=== PATIENT | male | born 1965 | race Caucasian/White ===

== ENCOUNTER → 2016-11-09 | Outpatient (REF) | payer OTHER ==
[2016-11-09 12:46] LABS: ALBUMIN 3.9 GM/DL (3.2-5.2); ALKALINE PHOSPHATASE 204 U/L (45-117); ALT/SGPT 54 U/L (12-78); ANION GAP 20 MEQ/L (8-16); AST/SGOT 63 U/L (15-37); BLOOD UREA NITROGEN 10 MG/DL (7-18); CALCIUM LEVEL 8.5 MG/DL (8.5-10.1); CARBON DIOXIDE LEVEL 16 MEQ/L (21-32); CHLORIDE LEVEL 96 MEQ/L (98-107); CHOLESTEROL LEVEL 213 MG/DL (<200); CREATININE FOR GFR 0.57 MG/DL (0.70-1.30); GLOMERULAR FILTRATION RATE > 60.0 (>56); GLUCOSE, FASTING 55 MG/DL (70-105); POTASSIUM SERUM 3.3 MEQ/L (3.5-5.1); SODIUM LEVEL 132 MEQ/L (136-145); TOTAL PROTEIN 6.9 GM/DL (6.4-8.2); TRIGLYCERIDES LEVEL 135 MG/DL (<150)
== END ==
LOC: M SFHCPLAZ 09:22
PROVIDERS: ATTEND Internal Medicine Infectious Disease
DX: B20 Human immunodeficiency virus [HIV] disease (principal); Z11.3 Encounter for screening for infections with a predominantly sexual mode of transmission; R79.89 Other specified abnormal findings of blood chemistry; Z13.220 Encounter for screening for lipoid disorders; Z12.5 Encounter for screening for malignant neoplasm of prostate

== ENCOUNTER → 2017-01-11 | Outpatient (CLI) | payer OTHER ==
--- NOTE | 2017-01-11 14:06 | REP ---
Chest two views HISTORY: COPD Comparison: 02/23/2016 The lungs are hyperinflated. An increase in interstitial markings is present in the lungs. Bullae are present in the upper lobes. The heart is normal in size. The pulmonary vasculature is normal in appearance. The bony structure is intact. IMPRESSION: COPD. Signed by Joe Valladares MD 01/11/2017 01:57 P
== END ==
LOC: M RAD 13:29
PROVIDERS: ATTEND Internal Medicine Infectious Disease
DX: J44.9 Chronic obstructive pulmonary disease, unspecified (principal)

== ENCOUNTER 2017-03-02 15:55 | Emergency (ER) | payer OTHER ==
[~2017-03-02] VITALS: Ht 157.5 cm; Wt 47.6 kg
[2017-03-02 15:56] VITALS: BP 145/89
[2017-03-02] MEDS ORDERED: ATRIPLA PO (16:07)
[2017-03-02] MEDS ORDERED: MULTTAB PO (16:07)
[2017-03-02] MEDS ORDERED: CYCL10TA PO (16:41)
[2017-03-02] MEDS ORDERED: IBUP600T26 PO (16:41)
== END 2017-03-02 17:33 | disposition home or self-care (01) ==
LOC: M ED 16:35
DX: S39.012A Strain of muscle, fascia and tendon of lower back, initial encounter (principal); X50.3XXA Overexertion from repetitive movements, initial encounter; Y92.89 Other specified places as the place of occurrence of the external cause; Y93.89 Activity, other specified; Y99.8 Other external cause status; I10 Essential (primary) hypertension; F17.200 Nicotine dependence, unspecified, uncomplicated; Z79.899 Other long term (current) drug therapy

== ENCOUNTER → 2017-05-05 | Outpatient (REF) | payer OTHER ==
[~2017-05-05] MED LIST: ATRIPLA PO; BOUDPST TOP; CYCL10TA PO; DRIS50002 PO; FERR1TAB8 PO; FIRS1SOL3 PO; FOLI1TAB4 PO; IBUP-1022 PO; KPHOS50TA PO; LEVO75TA4 PO; MAG400TA PO; MULTTAB PO; NICO14PA TD; NYST10PW TOP; RISATAB3 PO; THIA100TA PO; VITMTA PO
[2017-05-05 12:32] LABS: ALBUMIN 3.6 GM/DL (3.2-5.2); ALBUMIN/GLOBULIN RATIO 1.16 (1.00-1.93); ALKALINE PHOSPHATASE 166 U/L (45-117); ALT/SGPT 82 U/L (12-78); ANION GAP 13 MEQ/L (8-16); AST/SGOT 105 U/L (15-37); BILIRUBIN,TOTAL 0.8 MG/DL (0.2-1.0); BLOOD UREA NITROGEN 4 MG/DL (7-18); CALCIUM LEVEL 8.8 MG/DL (8.5-10.1); CARBON DIOXIDE LEVEL 23 MEQ/L (21-32); CHLORIDE LEVEL 96 MEQ/L (98-107); CREATININE FOR GFR 0.64 MG/DL (0.70-1.30); GLOMERULAR FILTRATION RATE > 60.0 (>56); GLUCOSE, FASTING 72 MG/DL (70-105); POTASSIUM SERUM 3.6 MEQ/L (3.5-5.1); SODIUM LEVEL 132 MEQ/L (136-145); TOTAL PROTEIN 6.7 GM/DL (6.4-8.2)
[2017-05-10 00:10] LABS: %CD3+CD4+CD8+ 7.8 % (Not Estab.); %CD3+CD4+CD8- 38.6 % (Not Estab.); %CD3+CD4-CD8+ 32.2 % (Not Estab.); %CD3+CD4-CD8- 1.2 % (Not Estab.); ABS CD3+CD4+CD8+ 117 /uL (Not Estab.); ABS CD3+CD4+CD8- 579 /uL (Not Estab.); ABS CD3+CD4-CD8+ 483 /uL (Not Estab.); ABS CD3+CD4-CD8- 18 /uL (Not Estab.); Eosinophils 1 % (.); Monocytes 9 % (.); Neutrophils 66 % (.); WBC 6.3 x10E3/uL (3.4-10.8)
== END ==
LOC: M SFHCPLAZ 08:58
PROVIDERS: ATTEND Internal Medicine Infectious Disease
DX: B20 Human immunodeficiency virus [HIV] disease (principal); R79.89 Other specified abnormal findings of blood chemistry

== ENCOUNTER 2017-06-25 13:42 | Inpatient (IN) | payer OTHER ==
[~2017-06-25] VITALS: Ht 172.7 cm; Wt 38.6 kg
[~2017-06-25 13:42] MED LIST changes: -BOUDPST TOP; -DRIS50002 PO; -FERR1TAB8 PO; -FIRS1SOL3 PO; -FOLI1TAB4 PO; -KPHOS50TA PO; -LEVO75TA4 PO; -MAG400TA PO; -NICO14PA TD; -NYST10PW TOP; -RISATAB3 PO; -THIA100TA PO; -VITMTA PO
[2017-06-25] MEDS ORDERED: NS 1,000 ML IV ONE (14:00)
--- NOTE | 2017-06-25 14:45 | REP ---
All chest x-ray: Single view: History: Altered mental status. Comparison chest x-ray: 01/11/2017. Findings: EKG monitoring electrodes overlie the chest. The heart is not enlarged. Aorta is slightly tortuous. The lungs are quite hyperinflated consistent with some degree of COPD but clear. No bony abnormality is seen. Impression: Hyperinflated lungs. Evidence COPD. No acute disease. Signed by Ko Sage MD 06/25/2017 02:50 P
[2017-06-25 15:25] LABS: ALBUMIN 2.6 GM/DL (3.2-5.2); ALBUMIN/GLOBULIN RATIO 0.79 (1.00-1.93); ALKALINE PHOSPHATASE 118 U/L (45-117); ALT/SGPT 31 U/L (12-78); ANION GAP 20 MEQ/L (8-16); AST/SGOT 30 U/L (15-37); BILIRUBIN,DIRECT 0.3 MG/DL (0.0-0.2); BILIRUBIN,TOTAL 0.6 MG/DL (0.2-1.0); BLOOD UREA NITROGEN 87 MG/DL (7-18); CARBON DIOXIDE LEVEL 14 MEQ/L (21-32); CHLORIDE LEVEL 122 MEQ/L (98-107); CREATININE FOR GFR 2.81 MG/DL (0.70-1.30); GLOMERULAR FILTRATION RATE 25.3 (>56); GLUCOSE, FASTING 126 MG/DL (70-105); POTASSIUM SERUM 3.1 MEQ/L (3.5-5.1); SODIUM LEVEL 156 MEQ/L (136-145); TOTAL PROTEIN 5.9 GM/DL (6.4-8.2)
[2017-06-25 16:06] LABS: ADD MANUAL DIFFER YES; MEAN CORPUSCULAR HEMOGLOBIN 35.8 pg (27.0-33.0); MEAN CORPUSCULAR HGB CONC 33.6 g/dl (32.0-36.5); MEAN CORPUSCULAR VOLUME 106.4 fl (80.0-96.0); PLATELET COUNT, AUTOMATED 148 k/mm3 (150-450); RED CELL DISTRIBUTION WIDTH 14.2 % (11.5-14.5); WHITE BLOOD COUNT 6.9 K/mm3 (4.0-10.0)
[2017-06-25 16:18] LABS: BANDS 3 % (< 11)
[2017-06-25] MEDS ORDERED: PIPERACILLIN/TAZOBACTAM SOD 2.25 GM in D5W MINI-BAG PLUS 50 ML IV ONE (16:45)
[2017-06-25] MEDS ORDERED: NS 500 ML IV ONE ×2 (16:45→18:15)
[2017-06-25] MEDS ORDERED: DRIS50002 PO (17:04)
[2017-06-25] MEDS ORDERED: ATRIPLA PO (17:04)
[2017-06-25] MEDS ORDERED: NS 1,000 ML IV SCH (18:15)
[2017-06-25 19:43] LABS: ANION GAP 18 MEQ/L (8-16); BLOOD UREA NITROGEN 84 MG/DL (7-18); CALCIUM LEVEL 7.4 MG/DL (8.5-10.1); CARBON DIOXIDE LEVEL 15 MEQ/L (21-32); CHLORIDE LEVEL 119 MEQ/L (98-107); CREATININE FOR GFR 2.57 MG/DL (0.70-1.30); GLUCOSE, FASTING 133 MG/DL (70-105); MAGNESIUM LEVEL 2.6 MG/DL (1.8-2.4); POTASSIUM SERUM 2.7 MEQ/L (3.5-5.1); SODIUM LEVEL 152 MEQ/L (136-145)
[2017-06-25] MEDS ORDERED: THIAMINE 100 MG TAB PO ONE (20:30)
[2017-06-25] MEDS ORDERED: KCL 20MEQ in NS 1000ML 1,000 ML IV SCH (20:30)
[2017-06-25] MEDS ORDERED: FOLIC ACID 1 MG TAB PO ONE (20:30)
[2017-06-25] MEDS ORDERED: IPRATROPIUM 0.5MG/ALBUTEROL 2.5MG INH SOL UD 3ML (DUONEB)(J7620) NEB PRN (20:30)
[2017-06-25] MEDS ORDERED: NICOTINE 14 MG/24 HR TRANSDERMAL TD PRN (20:30)
[2017-06-25] MEDS ORDERED: OXAZEPAM 10 MG CAP PO PRN (20:30)
[2017-06-25] MEDS ORDERED: KCL 10MEQ IN 100ML SWI (KRUN) 10 MEQ in APPROPRIATE DILUENT 1 EA IV STA ×2 (20:32)
[2017-06-25] MEDS ORDERED: POTASSIUM CHLORIDE 10 MEQ SR TABLET PO STA (20:33)
[2017-06-25 20:45] VITALS: BP 100/65
[2017-06-25 21:22] LABS: PHOSPHORUS LEVEL 3.9 MG/DL (2.5-4.9)
--- NOTE | 2017-06-25 21:24 | HPE ---
DATE OF ADMISSION: 06/25/2017 This is a patient of Dr. Marquez. CHIEF COMPLAINT: Not feeling well. SUMMARY OF HIS PRESENTATION: This is a 52-year-old who says he is not feeling well for 2-1/2 months. He has had general malaise. He is not supposed to see Dr. Marquez until apparently September of this year. He is a relatively poor historian, but it appears as though for the last 3-4 weeks he has had difficulty walking. He says this is because of weakness. He does not describe any falls or injuries. He has been having friends or his landlord bring him food. He says that he does have rats in his apartment, but he has not had any rat bites. Today he was found down by his landlord. He was apparently lethargic and difficult to understand. The emergency medical services (EMS) team had difficulty obtaining a blood pressure, and he was noted to be covered in various ages of his own feces. PAST MEDICAL HISTORY: Notable for: 1. AIDS. 2. Pneumocystic pneumonia (PCP). 3. Alcohol abuse. 4. Tobacco abuse. 5. Chronic obstructive pulmonary disease (COPD). 6. Attention deficit hyperactivity disorder (ADHD). 7. History of a rib fracture. 8. Impaired vision. 9. Bronchitis. 10. Oral candidiasis. SURGICAL HISTORY: There is no known surgical history. FAMILY HISTORY: Notable for his parents both being . SOCIAL HISTORY: He continues to smoke. He does drink alcohol. ALLERGIES: He has no known drug allergies listed. MEDICATIONS AT HOME: Include vitamin D and Atripla. He says he is compliant with his antiviral medication. REVIEW OF SYSTEMS: Notable for no headache. No visual change, although he is having difficulty seeing now because he left his glasses at home. No sore throat. No neck pain. No cough. He does have some low back pain. No chest pain. He has been having diarrhea. He has had decreased oral intake. He is, again, a poor historian, and review of systems is quite limited. PHYSICAL EXAMINATION: His temperature is 96.9, his blood pressure upon arrival was 84/56, most recently it is 120/58, pulse 76, respiratory rate is 18, pulse oximetry is 99% on room air. He is awake during my exam and appropriately interactive. Apparently that was not the case earlier in his stay. He is alert and oriented times three. Pleasant, easily conversant, and has actually made some jokes during the exam. Mucous membranes are tacky. Neck is supple. He appears cachectic. I appreciate no cervical or supraclavicular adenopathy. Breathing is symmetrical. Inspiratory to expiratory (I-to-E) ratio is 1:3. No costovertebral angle (CVA) tenderness. There is some tenderness over the posterior right lower rib cage. There is no midline tenderness noted. Abdomen soft, doughy, nontender. There is no lower extremity edema. He is covered with small scratches/abrasions he looks like he has been itching quite a bit. On the medial aspect of his left inner thigh there is some skin denudation, and it looks like fungal changes. White cell count 6.9, hemoglobin 13, platelets of 148. Sodium 156, potassium 3.1, chloride 122, carbon dioxide 14, anion gap of 20, creatinine 2.81, glucose 126. TSH is 5.55. UA is notable for trace ketones. Repeat BMP shows sodium 152, potassium 2.7, chloride 119, carbon dioxide 15, anion gap of 18, creatinine 2.57. Lactic acid 4.2. CK and troponin are, again, negative. Ammonia level was 16. No cultures have been sent after antibiotics have been given. Chest x-ray shows hyperinflation. No acute disease. Abdominal and pelvic CT wet read shows healing wedge compression deformity at T12 with vertebral body loss and 7 mm retropulsion producing canal stenosis, thickening of the adrenal glands bilaterally, consistent with adrenal hyperplasia, Ram catheter. EKG shows sinus rhythm. Nonspecific ST-T-wave changes. ASSESSMENT: This is a 52-year-old with HIV, cachexia, and profound dehydration leading to hypotension. Patient will require 2-midnight hospital stay. My plan will be as follows: 1. Patient has acute renal failure. There is no evidence of obstruction. We are giving intravenous (IV) fluids. He is also noted to be hypernatremic. At this point, given his hypotension, will continue with normal saline replacement. He his also hypokalemic, which will be repleted. We will check a potassium given that he is at risk for refeeding syndrome, as he has not been eating well for the last 3-4 weeks. He will be monitored on telemetry, of course. 2. Possibility of an infectious etiology is considered, although it seems less likely. Unfortunately, cultures were not sent prior to giving antibiotics. At this point, will continue with empiric Zosyn and by mouth vancomycin. Will send a gastrointestinal (GI) panel with the next stool for the possibility of Clostridium (C) difficile colitis. 3. Patient has HIV. I have discussed this case by phone with Dr. Marquez. Will continue with his outpatient HIV regimen. 4. Patient has elevated thyroid-stimulating hormone (TSH). Will check a thyroid panel in the morning. 5. Patient has history of alcohol and tobacco abuse. Will make a nicotine patch available to him should he request it. There is no evidence of alcohol withdrawal. His alcohol level is undetectably low. Will monitor for signs or symptoms of infection. Will make as-needed Serax available as well as folate and thiamine. 6. Patient has a T12 fracture and would likely benefit from MRI of the area and perhaps orthopedic consult when he is more clinically stable. At this point, we should probably keep him bed rest. There is no focal neurologic deficit. Sensation is grossly intact. His deep tendon reflexes (DTRs) at the patella and Achilles are not slowed, and he is able to move both legs. This is likely a subacute fracture. 7. Patient has history of chronic obstructive pulmonary disease (COPD). Will make nebulizers available to him. 8. Deep vein thrombosis (DVT) prophylaxis can be heparin.
[2017-06-25] MEDS: HEPARIN SOD (PORCINE) 5000 UNITS/ML VIAL SQ SCH (21:29)
[2017-06-25] MEDS: PIPERACILLIN/TAZOBACTAM SOD 2.25 GM in D5W MINI-BAG PLUS 50 ML IV SCH (23:49)
[2017-06-25] MEDS: VANCOMYCIN ORAL SOL 250MG/5ML ORAL SYRINGE PO SCH (23:50)
[2017-06-26] VITALS (7 sets, daily range): BP systolic 93–112; BP diastolic 65–75
[2017-06-26 00:47] LABS: CALCIUM LEVEL 7.4 MG/DL (8.5-10.1); CREATININE FOR GFR 2.45 MG/DL (0.70-1.30); GLOMERULAR FILTRATION RATE 29.6 (>56); POTASSIUM SERUM 3.1 MEQ/L (3.5-5.1)
[2017-06-26] MEDS: KCL 10MEQ IN 100ML SWI (KRUN) 10 MEQ in APPROPRIATE DILUENT 1 EA IV SCH ×16 (02:25→10:15)
[2017-06-26] MEDS: D5W 1,000 ML IV SCH ×2 (03:30→08:40)
[2017-06-26] MEDS: PIPERACILLIN/TAZOBACTAM SOD 2.25 GM in D5W MINI-BAG PLUS 50 ML IV SCH ×4 (05:22→23:58)
[2017-06-26 05:51] LABS: MEAN CORPUSCULAR HEMOGLOBIN 36.1 pg (27.0-33.0); MEAN CORPUSCULAR HGB CONC 35.3 g/dl (32.0-36.5); MEAN CORPUSCULAR VOLUME 102.2 fl (80.0-96.0); RED CELL DISTRIBUTION WIDTH 14.5 % (11.5-14.5); WHITE BLOOD COUNT 8.8 K/mm3 (4.0-10.0)
[2017-06-26] MEDS: ATRIPLA TAB PO SCH (06:14)
[2017-06-26] MEDS: VANCOMYCIN ORAL SOL 250MG/5ML ORAL SYRINGE PO SCH ×4 (06:15→23:58)
[2017-06-26 06:18] LABS: CALCIUM LEVEL 7.3 MG/DL (8.5-10.1); CREATININE FOR GFR 2.17 MG/DL (0.70-1.30); MAGNESIUM LEVEL 2.2 MG/DL (1.8-2.4); POTASSIUM SERUM 2.9 MEQ/L (3.5-5.1)
--- NOTE | 2017-06-26 07:02 | REP ---
CT brain without contrast: History: Altered mental status. Comparison CT study July 09, 2009. Findings: There is diffuse moderate generalized atrophy in this relatively young patient. This is more prominent than on the prior CT study. There is no evidence of intracranial hemorrhage. No extra-axial fluid collection is seen. No mass, cortical infarction or midline shift is seen. Bone window settings demonstrate an intact bony calvarium. Visualized paranasal sinuses are clear. The patient is edentulous. Impression: Diffuse moderate generalized atrophy. No acute intracranial lesion. Signed by Ko Sage MD 06/26/2017 08:45 A
--- NOTE | 2017-06-26 07:05 | REP ---
CT abdomen and pelvis without IV or oral contrast: History: Ulceration in the medial groin. Comparison CT study February 05, 2008. CT findings: Preliminary digital lighting specialist radiograph demonstrates an unremarkable bowel gas pattern. A Ram catheter is seen. There is a wedge compression fracture deformity at the T12 vertebral body. There is moderate retropulsion of the posterior cortex producing central canal stenosis. The retropulsion measures 7 mm. There is 75% loss of anterior vertebral body height. I do not see posterior element involvement in the fracture or displacement. No other focal bony lesion. Diffuse osteoporosis. The liver and spleen are normal in size and homogeneous in texture. The gallbladder is unremarkable. No pancreatic abnormality is seen. There is some diffuse thickening of the adrenal glands bilaterally. This may be adrenal hyperplasia. No hydronephrosis or renal mass is seen. There is a slightly hyperdense cyst in the anterior cortex of the left mid kidney. Normal caliber aorta. Small and large bowel loops are unremarkable. Normal appendix is seen. A Ram catheter is noted in the urinary bladder. No other significant finding. Impression: 1. Healing wedge compression fracture deformity at T12 with 75% loss of vertebral body height and 7 mm of retropulsion producing central canal stenosis at the T12 level. 2. Thickening of the adrenal glands bilaterally consistent with adrenal hyperplasia. Mild in degree. 3. Ram catheter in place. 4. No other acute abdominal finding. Signed by Ko Sage MD 06/26/2017 08:46 A
[2017-06-26 07:27] LABS: INR 1.95
[2017-06-26] MEDS: HEPARIN SOD (PORCINE) 5000 UNITS/ML VIAL SQ SCH (08:26)
[2017-06-26] MEDS ORDERED: BOUDREAUX'S BUTT PASTE 4OZ TOP PRN (09:30)
[2017-06-26] MEDS: NYSTATIN CREAM 15 GM TOP SCH ×2 (10:14→21:00)
[2017-06-26] MEDS ORDERED: KCL 10MEQ IN 100ML SWI (KRUN) 10 MEQ in APPROPRIATE DILUENT 1 EA IV ONE ×2 (11:00)
--- NOTE | 2017-06-26 12:50 | ECGEPIP ---
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
[2017-06-26] MEDS: MULTIVITAMINS/MINERALS THERAP 1 TAB PO SCH (16:13)
[2017-06-26] MEDS: FOLIC ACID 1 MG TAB PO SCH (16:13)
[2017-06-26] MEDS: THIAMINE 100 MG TAB PO SCH (16:13)
[2017-06-26 16:16] LABS: OSMOLALITY URINE 580 MOSM/KG (500-800)
[2017-06-26 17:10] LABS: CREATININE FOR GFR 1.68 MG/DL (0.70-1.30); GLOMERULAR FILTRATION RATE 45.7 (>56); POTASSIUM SERUM 3.4 MEQ/L (3.5-5.1)
--- NOTE | 2017-06-26 17:36 | IPN ---
DATE: 06/26/2017 SUBJECTIVE: Patient seen and examined in the room today. Patient is a little bit sleepy during the paper ruler. The patient is able to answer some questions. Denies any complaints. OBJECTIVE: VITAL SIGNS: Temperature 97.8, pulse 94, respirations 16, blood pressure 110/68, pulse oximetry 97% on room air. GENERAL: Fatigued, no sign of distress. The patient is alert and awake and able to answer questions. CARDIOVASCULAR: Positive S1, S2. Regular rate. RESPIRATORY: Clear to auscultation bilaterally. ABDOMEN: Soft, nontender. EXTREMITIES: There are multiple macular skin erythematous lesions throughout the body and with scratch dunn. No lower extremity edema. LABORATORY DATA: WBC is 8.8, hemoglobin 10.4, hematocrit 29.4, platelet count 97. Sodium is 148, potassium 2.9, chloride 119, carbon dioxide 17, BUN 82, creatinine 2.17, GFR 34, fasting glucose 93, calcium 7.3, magnesium 2.2. Prealbumin 7.5. TSH is 6.47. T4 is three. MICROBIOLOGY: GI panel positive for Clostridium (C.) difficile and enteropathogenic Escherichia (E.) coli. ASSESSMENT AND PLAN: 1. Clostridium (C.) difficile colitis. Patient started on oral vancomycin. The patient remains to have soft blood pressure. The patient is on intravenous (IV) resuscitation. 2. History of AIDS. Seen by Dr. Marquez previously. The patient has been on the AIDS medications. We will continue that. 3. Chronic alcohol abuse. The patient will be on thiamine, folic acid, and multivitamin. The patient also has Serax by mouth as needed for withdrawal symptoms. 4. Tobacco abuse, on nicotine patch. 5. Yeast infection around the buttocks. The patient currently has C. difficile and has frequent bowel movements, and seems to have yeast infection around the anus area. The patient started on Nystatin and also Desitin cream to protect the skin. 6. severe protein calorie malnutrition BMI 12. Recommend increasing oral intake as tolerated. Supplement meals with Ensure. 7. Deep venous thrombosis (DVT) prophylaxis. The patient currently has drop of the platelet count. Could be due to hemodilution, and we will try to rule out the heparin-induced thrombocytopenia. The patient was placed on thromboembolism deterrent stockings (TEDs) and sequentials for now. MTDD
--- NOTE | 2017-06-26 21:29 | ECGEPIP ---
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
[2017-06-27 03:49] VITALS: BP 93/61
[2017-06-27] MEDS: ATRIPLA TAB PO SCH (05:21)
[2017-06-27] MEDS: VANCOMYCIN ORAL SOL 250MG/5ML ORAL SYRINGE PO SCH ×4 (05:21→23:38)
[2017-06-27] MEDS: PIPERACILLIN/TAZOBACTAM SOD 2.25 GM in D5W MINI-BAG PLUS 50 ML IV SCH ×2 (05:21→11:12)
[2017-06-27] MEDS: LEVOTHYROXINE 37.5MCG PER 1/2TAB (0.0375MG) PO SCH (05:21)
[2017-06-27] MEDS: ACETAMINOPHEN TAB 650MG DOSE (2X325MG) PO PRN ×2 (05:21→17:45)
[2017-06-27] MEDS: D5W 1,000 ML IV SCH (05:22)
[2017-06-27 05:34] LABS: MEAN CORPUSCULAR HEMOGLOBIN 35.6 pg (27.0-33.0); MEAN CORPUSCULAR HGB CONC 34.1 g/dl (32.0-36.5); MEAN CORPUSCULAR VOLUME 104.4 fl (80.0-96.0); RED CELL DISTRIBUTION WIDTH 14.3 % (11.5-14.5); WHITE BLOOD COUNT 14.4 K/mm3 (4.0-10.0)
[2017-06-27 06:08] LABS: CALCIUM LEVEL 7.6 MG/DL (8.5-10.1); CREATININE FOR GFR 1.62 MG/DL (0.70-1.30); FREE T4 0.85 NG/DL (0.76-1.46); GLOMERULAR FILTRATION RATE 47.7 (>56); MAGNESIUM LEVEL 1.9 MG/DL (1.8-2.4)
[2017-06-27 06:12] LABS: POTASSIUM SERUM 2.6 MEQ/L (3.5-5.1)
[2017-06-27] MEDS: POTASSIUM CHLORIDE 10% LIQ 20 MEQ/15 ML UDC PO SCH ×2 (06:48→08:24)
[2017-06-27] MEDS: KCL 10MEQ IN D5/0.45NS 1000ML 1,000 ML IV SCH (06:48)
[2017-06-27] MEDS: KCL 10MEQ IN 100ML SWI (KRUN) 10 MEQ in APPROPRIATE DILUENT 1 EA IV SCH ×8 (06:48→16:18)
[2017-06-27 08:00] VITALS: BP 96/60
[2017-06-27] MEDS: FOLIC ACID 1 MG TAB PO SCH (08:24)
[2017-06-27] MEDS: THIAMINE 100 MG TAB PO SCH (08:24)
[2017-06-27] MEDS: MULTIVITAMINS/MINERALS THERAP 1 TAB PO SCH (08:24)
[2017-06-27] MEDS: NYSTATIN CREAM 15 GM TOP SCH ×2 (08:25→21:00)
[2017-06-27 12:00] VITALS: BP 94/60
[2017-06-27] MEDS: LACTOBACILLUS ACIDOPHILUS CAP (BACID) PO SCH ×2 (12:30→17:14)
[2017-06-27 13:46] LABS: CALCIUM LEVEL 7.3 MG/DL (8.5-10.1); CREATININE FOR GFR 1.38 MG/DL (0.70-1.30); GLOMERULAR FILTRATION RATE 57.4 (>56); POTASSIUM SERUM 3.2 MEQ/L (3.5-5.1)
--- NOTE | 2017-06-27 14:40 | REP ---
CT THORACIC SPINE WITHOUT CONTRAST: HISTORY: Fracture. There is a compression fracture of the L1 vertebral body with moderate height loss. There is retropulsion of a posterior fracture fragment with moderate spinal canal compromise. There is no subluxation. The L1-2 intervertebral disc is decreased in height consistent with disc degeneration. A diffuse disc bugle is present at the T12-L1 level. There is minimal compression of the thecal sac. The T12 neural foramina are patent. A diffuse disc bulge is present at the L1-2 level. There is minimal compression of the thecal sac. The L1 nerves exit the neural foramina without compression. There is no other disc bulge or herniation. The remaining neural foramina are patent. Small anterior osteophytes are present throughout the thoracic spine. IMPRESSION: 1. Acute L1 compression fracture with moderate height loss and retropulsion. 2. Diffuse disc bulges at the T12-L1 and L1-2 levels with minimal thecal sac compression. Signed by Joe Valladares MD 06/27/2017 02:52 P
[2017-06-27 16:00] VITALS: BP 94/69
--- NOTE | 2017-06-27 19:21 | IPN ---
DATE: 06/27/2017 SUBJECTIVE: Patient is seen and examined in the room today. During morning rounds, patient had been very fatigued, not able to answer many questions. Does not have a very good appetite. Patient does have some degree of orientation, but a lot of the time patient cannot even stay awake or answer the questions appropriately. OBJECTIVE: VITAL SIGNS: Temperature 97.5, pulse 74, respirations 22, blood pressure 96/60, pulse oximetry 98% in room air. GENERAL: Fatigued. No sign of distress. Patient is alert and able to stay awake with auditory stimulation, able to follow commands. CARDIOVASCULAR: Positive S1, S2, regular rate. RESPIRATORY: Clear to auscultation bilaterally. ABDOMEN: Soft, nontender. EXTREMITIES: Multiple macular skin erythematous lesions, purplish, throughout the body and there is some scratch dunn. There is no lower extremity edema. LABORATORY DATA: WBC 14.4, hemoglobin 10.4, hematocrit 30.6, platelet count 64. Sodium 148, potassium 3.2, chloride 122, carbon dioxide 14, BUN 48, creatinine 1.38, GFR 57.4, fasting glucose 122, calcium 7.3. ASSESSMENT AND PLAN: 1. Clostridium (C) difficile colitis. Started on oral vancomycin. Continues to have soft blood pressure on IV resuscitation. Infectious disease specialist, Dr. Marquez, has been consulted. 2. Enteropathogenic Escherichia (E) coli infection. Continue conservative medical management. 3. Acute kidney injury. Patient has a normal glomerular filtration rate (GFR). Most recent labs were done on 05/05/2017. Since admission, patient presented with a GFR of 25.3, most likely due to prerenal azotemia. Patient has been receiving IV resuscitation. Today, GFR is 57.4. 4. Hypokalemia, most likely secondary to significant output through stool production from Clostridium (C) difficile and enteropathogenic Escherichia (E) coli (EPEC). Continue to monitor patient. Will replenish electrolytes accordingly. 5. History of AIDS. Patient was treated by Dr. Marquez. Continue his home medications. 6. T12 and L1 compression fracture. I have discussed the case with the orthopedic team. Will see if we can obtain further input from Dr. Burroughs. Currently, I will cancel the activity orders and will withhold the physical therapy until patient is more stabilized. 7. Chronic alcohol abuse. On thiamine, folic acid, and multivitamin. Patient has Serax as needed for withdrawal symptoms. 8. Tobacco abuse, on nicotine patch. 9. Yeast infection around the buttocks. Patient on nystatin and Desitin. 10. Deep venous thrombosis (DVT) prophylaxis. Patient on thromboembolism deterrents (TEDs) and sequential compression device. 11. Thrombocytopenia. In the last few days, patient has a continuous drop of platelet count. Heparin has been discontinued. Will followup with the heparin induced antibody level. No sign of active bleeding at this moment. 12. Anemia of chronic disease. For the past 24-48 hours, hemoglobin and hematocrit remain stable. No sign of active bleeding.
[2017-06-27 20:00] VITALS: BP 98/78
[2017-06-27] MEDS: metroNIDAZOLE 500 MG in APPROPRIATE DILUENT 1 EA IV SCH (20:00)
[2017-06-27 20:59] LABS: FOLATE 5.4 NG/ML (>5.4)
[2017-06-27 23:15] LABS: ANION GAP 11 MEQ/L (8-16); BLOOD UREA NITROGEN 35 MG/DL (7-18); CALCIUM LEVEL 6.7 MG/DL (8.5-10.1); CARBON DIOXIDE LEVEL 13 MEQ/L (21-32); CHLORIDE LEVEL 124 MEQ/L (98-107); CREATININE FOR GFR 1.18 MG/DL (0.70-1.30); GLOMERULAR FILTRATION RATE > 60.0 (>56); GLUCOSE, FASTING 97 MG/DL (70-105); POTASSIUM SERUM 3.5 MEQ/L (3.5-5.1); SODIUM LEVEL 148 MEQ/L (136-145)
[2017-06-28] VITALS: BP 106/69
[2017-06-28 04:30] VITALS: BP 110/77
[2017-06-28] MEDS: metroNIDAZOLE 500 MG in APPROPRIATE DILUENT 1 EA IV SCH ×3 (05:55→21:19)
[2017-06-28] MEDS: KCL 10MEQ IN D5/0.45NS 1000ML 1,000 ML IV SCH (05:55)
[2017-06-28] MEDS: VANCOMYCIN ORAL SOL 250MG/5ML ORAL SYRINGE PO SCH ×4 (05:56→23:32)
[2017-06-28] MEDS: ATRIPLA TAB PO SCH (05:56)
[2017-06-28] MEDS: ACETAMINOPHEN TAB 650MG DOSE (2X325MG) PO PRN ×2 (05:57→12:31)
[2017-06-28] MEDS: LEVOTHYROXINE 37.5MCG PER 1/2TAB (0.0375MG) PO SCH (05:57)
[2017-06-28 06:47] LABS: MEAN CORPUSCULAR HEMOGLOBIN 35.8 pg (27.0-33.0); MEAN CORPUSCULAR HGB CONC 34.5 g/dl (32.0-36.5); MEAN CORPUSCULAR VOLUME 103.7 fl (80.0-96.0); RED CELL DISTRIBUTION WIDTH 14.6 % (11.5-14.5); WHITE BLOOD COUNT 12.3 K/mm3 (4.0-10.0)
[2017-06-28 07:08] LABS: ANION GAP 7 MEQ/L (8-16); BLOOD UREA NITROGEN 28 MG/DL (7-18); CALCIUM LEVEL 7.2 MG/DL (8.5-10.1); CARBON DIOXIDE LEVEL 18 MEQ/L (21-32); CHLORIDE LEVEL 123 MEQ/L (98-107); CREATININE FOR GFR 0.97 MG/DL (0.70-1.30); GLOMERULAR FILTRATION RATE > 60.0 (>56); GLUCOSE, FASTING 94 MG/DL (70-105); POTASSIUM SERUM 3.6 MEQ/L (3.5-5.1); SODIUM LEVEL 148 MEQ/L (136-145)
[2017-06-28 07:45] VITALS: BP 109/76
[2017-06-28] MEDS ORDERED: CALCIUM GLUCONATE 1,000 MG in D5W MINI-BAG PLUS 100 ML IV ONE (08:00)
[2017-06-28] MEDS: THIAMINE 100 MG TAB PO SCH (08:46)
[2017-06-28] MEDS: MULTIVITAMINS/MINERALS THERAP 1 TAB PO SCH (08:46)
[2017-06-28] MEDS: FOLIC ACID 1 MG TAB PO SCH (08:46)
[2017-06-28] MEDS: LACTOBACILLUS ACIDOPHILUS CAP (BACID) PO SCH ×3 (08:46→18:51)
[2017-06-28] MEDS: NYSTATIN CREAM 15 GM TOP SCH ×2 (08:47→21:19)
[2017-06-28 12:00] VITALS: BP 113/69
--- NOTE | 2017-06-28 13:29 | IPNPDOC ---
Subjective Date Seen The patient was seen on 06/28/17. Subjective Chief Complaint/HPI Patient seen and examined at the bedside. States that he is feeling better, denies any acute complaints. According to the patient's bedside nurse, the patient's mentation has improved significantly compared to yesterday. Objective Physical Examination General Exam: Positive: Alert, Cooperative, No Acute Distress, Other ( cachectic appearing, with bitemporal wasting noted) ENT Exam: Positive: Mucous membr. moist/pink Neck Exam: Negative: JVD Chest Exam: Positive: Clear to auscultation, Normal air movement Heart Exam: Positive: Rate Normal, Normal S1, Normal S2 Abdomen Exam: Positive: Soft, Negative: Tenderness Extremity Exam: Negative: Tenderness, Swelling Neuro Exam: Positive: Strength at 5/5 X4 ext Assessment /Plan Plan/VTE VTE Prophylaxis Ordered?: Yes Plan/Urinary Catheter Reason for insertion/continuin: Critical Pt monitoring Plan Clostridium difficile colitis Continue on oral vancomycin and IV Flagyl as per ID White blood cell count down trending, the patient has remained afebrile IV fluid hydration ordered Diet advanced as tolerated Patient denies any abdominal pain at this time We will continue to monitor the patient's progress Infectious diseases on board GI panel also positive for Enteropathogenic Escherichia coli Continue supportive medical management as delineated above T12 and L1 Compression Fracture No acute neurological findings noted Orthopedic Service on board--MRI with STIR protocol of the Thoracic and Lumbar Spine ordered [employer] and W.B.A.T. with PT ordered Will follow up with further Ortho recommendations Acute kidney injury 2/2 C. Diff Diarrhea, decreased PO Intake Initial serum creatinine noted to be 2.8 (Baseline Cr 0.5-0.7) Serum Cr improved to 0.97 this AM Continue IV fluid hydration Nephrotoxins held We will cont to monitor serum Cr Thrombocytopenia possibly 2/2 C. Diff Infection Platelet count down to 53K this AM No active signs of bleeding noted Heparin products have been discontinued Heparin induced platelet antibody has been ordered We will continue to monitor History of AIDS Follows with Dr. Marquez of ID as outpatient Cont home meds ID consulted here History of alcohol abuse Thiamine, folic acid, multivitamins ordered Serax when necessary Hypothyroidism Continue levothyroxine Severe protein calorie nutrition BMI 12 By mouth intake encouraged We will add ensure 3 times a day DVT prophylaxis SCDs (thrombocytopenia) Prognosis: Long-term prognosis poor VS, I&O, 24H, Fishbone Vital Signs/I&O Vital Signs Date Time Temp Pulse Resp B/P (MAP) Pulse Ox O2 Delivery O2 Flow Rate FiO2 06/28/17 10:05 Room Air 06/28/17 07:45 97.6 87 20 109/76 (87) 100 I&O- Last 24 Hours up to 6 AM 06/28/17 06:00 Intake Total 2610 ml Output Total 420 ml Balance 2190 ml Laboratory Data 24H LABS Laboratory Tests 2 06/27/17 22:22: Anion Gap 11, Glomerular Filtration Rate > 60.0, Blood Urea Nitrogen 35H, Creatinine 1.18, Sodium Level 148H, Potassium Level 3.5, Chloride Level 124H, Carbon Dioxide Level 13L, Calcium Level 6.7L 06/28/17 06:39: Anion Gap 7L, Glomerular Filtration Rate > 60.0, Blood Urea Nitrogen 28H, Creatinine 0.97, Sodium Level 148H, Potassium Level 3.6, Chloride Level 123H, Carbon Dioxide Level 18L, Calcium Level 7.2L, Magnesium Level 2.0 CBC/BMP Laboratory Tests 06/27/17 22:22 Calcium Level 6.7 L 06/28/17 06:33 Red Blood Count 2.86 L, Mean Corpuscular Volume 103.7 H, Mean Corpuscular Hemoglobin 35.8 H, Mean Corpuscular Hemoglobin Concent 34.5, Red Cell Distribution Width 14.6 H 06/28/17 06:39 Calcium Level 7.2 L Microbiology Microbiology 06/26/17 Blood Culture - Preliminary, Resulted No growth after 24 hours . All specim... 06/26/17 Blood Culture - Preliminary, Resulted No growth after 24 hours . All specim... 06/25/17 Gastrointestinal Tract Panel (PCR) - Final, Complete Clostridium Difficile A/B Enteropathogenic E.coli 06/27/17 Urine Culture, Received Pending JAYY SCHMIDT MD Jun 28, 2017 13:29
--- NOTE | 2017-06-28 15:38 | CR ---
DATE OF CONSULTATION: 06/27/2017 REASON FOR CONSULTATION: L1 fracture. HISTORY OF PRESENT ILLNESS: He is a 52-year-old male admitted with lethargy, dehydration and renal failure who was found to be in a lethargic state at his home by his landlord, and admitted to the hospital by Dr. Mckeno and the hospitalist service. During his evaluation where they did an abdomen and pelvic CT, he was found to have a compression fracture of L1 of uncertain age. Because of that abnormality, I was called to this patient. He has been complaining of some back pain he says for about two or three months, but his ability to give a good history is very suspect given his significant lethargy and drowsiness at present. However, he does not remember specifically falling or injuring his back back then, but he has had some troubles with back pain and he denies trouble with a feeling of numbness down into his legs at all. However, he does say that his anal and perirectal area feels raw and it turns out that there is apparently some evidence of some redness and rash from chronic diarrhea and he has recently been diagnosed with Clostridium (C) difficile colitis. Since hospitalization, he has not been out of bed ambulating. He has had a Ram catheter in place and he is wearing a diaper because of his C. difficile diarrhea. PAST MEDICAL HISTORY: Positive: 1. AIDS. 2. Pneumocystic pneumonia. 3. Chronic alcohol abuse. 4. Chronic obstructive pulmonary disease (COPD). 5. Attention deficit hyperactivity disorder (ADHD). 6. Oral candidiasis. 7. Bronchitis. 8. History of smoking. PAST SURGICAL HISTORY: No known surgical history. FAMILY HISTORY: Both parents are . SOCIAL HISTORY: He does smoke and drink alcohol. ALLERGIES: No known drug allergies. OUTPATIENT MEDICATIONS: Vitamin D and Atripla. He is a patient of Dr. Marquez our infectious disease specialist who cares for him with his AIDS issues. He normally does ambulate but he has been having over the last several weeks because of the lethargy and feeling of weakness. On my examination today, he is lying in his bed and as mentioned, he is quite lethargic but he is arousable and he will actually tell a joke, but otherwise he is edentulous and it is difficult to understand what he says. He tends to fall asleep during our conversation. His temperature today is 97 and he has been afebrile since his hospitalization. His most recent blood pressure is 94/60 with an oxygen saturation at 98% on room air with a respiratory rate of 20 and a pulse of 67. He has some soreness of his shoulder anteriorly but could elevate up overhead. His side-lying examination reveals some mild soreness around the thoracolumbar junction area posteriorly but there is no step-off noted, obvious deformity, swelling, or redness. His perirectal examination showed what appears to be possibly some early sacral decubiti developing with some rash around the perianal area, but he has sensation to light touch and digital rectal examination shows he does have tone in his anus. He was able to bear down on my finger and had sensation there. Lower extremity examination showed intact sensation to light touch throughout both lower extremities. He could actually flex both hips and he had good straight leg raising ability without obvious weakness. He could dorsiflex and plantar flex his ankles without obvious weakness. There is no pitting edema and he actually had dorsalis pedis and posterior tibial palpable pulses bilaterally. Downgoing toes, basically a negative Babinski bilaterally with diminished but intact symmetrical reflexes at the quadriceps and at the ankles. I reviewed his CT of the abdomen and pelvis. You can see the compression deformity, so I ordered a CT scan of the thoracic spine and that demonstrates a significant compression deformity of L1 with about a one-third canal compromise. No obvious involvement of the posterior elements are noted. There is no scoliotic deformity. He does not really have any compression of the exiting nerve roots at that level. LABORATORY STUDIES: His white count initially was 6.9 but now it is up to 14.4 and his hematocrit is 30.2. Platelets of 64. His sodium is 148, potassium 3.2, chloride 122, CO2 14, BUN 48, creatinine 1.38 which is improved from his admission state, glomerular filtration rate is up to now 57.4 and basically normalizing. His stool shows Clostridium difficile and enteropathogenic Escherichia (E) coli. Blood cultures are pending. My impression is this is an indeterminate age L1 compression fracture with about a one-third canal compromise. There is some mild pain in his back. It does not appear to have neurologic involvement. I do not think this is a cauda equina syndrome given negative Babinski's and normal anal sensation and tone. However, it is a bit unclear how old this fracture is. It seems to be subacute. I think an syr-bnt-ivvyz [place] hyperextension-type brace may be of benefit to help minimize forward flexion deformity and possible worsening of his canal retropulsion. Otherwise, I do not think that there is a surgical indication given that he is neurologically intact and there is no obvious scoliotic deformity developed and the posterior elements appear to be intact. So we will order the brace and immobilize him with therapy and we will follow him along clinically for the time being.
--- NOTE | 2017-06-28 17:13 | CR ---
DATE OF CONSULTATION: 06/27/2017 Asked to consult by Dr. Mckeon for C. difficile colitis and AIDS. HISTORY OF PRESENT ILLNESS: Kyler is a 52-year-old gentleman well known to me from outpatient followup who has a history of AIDS and Pneumocystis pneumonia diagnosed in 2001. The patient has a history of alcohol abuse and tobacco abuse but is always 100% compliant with HIV medication, which is Atripla. The patient's CD-4 count has been over 600 for many years and viral load has been undetectable. I saw him last at the end of April, when I had noticed he was very disheveled, losing weight, continued drinking. The patient has very poor housing condition, but because he is a sex offender he has not been able to find better housing so he lives in this house in [facility] from which he rents a room from his landlord. He has described it as very filthy with mice and cats. He is always poorly dressed, disheveled, and with alcohol on his breath. The patient was brought in by EMS after his landlord found him lethargic, difficult to understand in his apartment with rats around. The patient was covered with stools, was in acute renal failure with hypokalemia and dehydrated. His past medical history includes a diagnosis of AIDS and Pneumocystis pneumonia diagnosed in March 2002 but since then his CD-4 has been over 500 and viral load undetectable on Atripla for the past over 5 years, alcohol abuse, tobacco abuse, COPD, attention deficit disorder, rib fracture, recently impaired vision, history of oral candidiasis. No known surgical history. FAMILY HISTORY: Both parents have , most recently his mother, of organ failure and since then he has not been in touch with the family. SOCIAL HISTORY: He smokes. He rolls his cigarettes, so he cannot really tell you how long. He drinks alcohol heavily. He eats poorly. ALLERGIES: Allergy to ZIAGEN as the patient has [id number], L1 positive. MEDICATIONS: - Atripla one tablet a day - vitamin D 50,000 units weekly - currently he is on probiotics two tablets with meals - zinc oxide to buttocks - levothyroxine 37.5 mcg daily - IV fluids with potassium - thiamine 100 mg by mouth daily - folic acid 1 mg daily - multivitamin one tablet daily - vancomycin 250 mg by mouth every 6 hours as needed - nicotine patch as needed - albuterol/Atrovent nebulizers every 2 hours as needed - Serax 10 mg by mouth every 8 hours as needed for agitation LABORATORY DATA: White count was 6.9 on admission, currently 14.4, hemoglobin 10, hematocrit 38.6, platelets 64 which has dropped from 148, 79% neutrophils, 3% bands. Sodium 148, potassium 3.2, chloride 122, bicarbonate 14, BUN 48 down from 87, creatinine 1.38 which is down from 2.81, glucose 122, calcium 7.3, TSH 5.04 and free T4 0.85, total T3 66. Heparin-induced antibodies are pending. Alcohol level was negative. Urinalysis had +2 bilirubin and +2 leukocyte esterase, 21 red cells. Blood cultures were negative and stool for C. difficile was positive with enteropathogenic E. coli. Temperature is 97.9, pulse 77, respirations 20, blood pressure 98/78, oxygen saturation 100% on room air. Heart: Normal S1, S2 with no murmurs, rubs or gallops. Lungs: Few expiratory rhonchi bilaterally. Abdomen: Soft, nontender. No hepatosplenomegaly. : Normal for age. He has a Ram catheter with very dark urine, concentrated. Buttock has a decubitus ulcer stage 1-2 with some excoriation of the skin and erythema. area has maceration of the skin both around the testicle with severe pain, watery incontinent bowel movement. Neurologic exam: He is lethargic but he is able to give you some kind of history. He does complain mostly of pain in the genital area from the chronic diarrhea. Very disheveled, emaciated, thin, looking older than stated age. Skin: Has multiple purplish areas which are macular, measuring about 2 cm with a central black eschar, purplish color around it, and then a clear halo followed by another purple discoloration. They are nontender, not elevated. They are not consistent with Kaposi sarcoma or basilar angiomatosis. They are not blistering and they do not look pruritic since there is no scratch dunn anywhere. There are a couple on each extremity on his thighs as well. REVIEW OF SYSTEMS: He has no nausea, vomiting, abdominal pain. He does complain of some back pain. He is concerned about a rash he has on his extremities which he thinks is related to animal bites. He has no upper or lower extremity weakness. No headache. He has a chronic cough of smoking. IMPRESSION: This is a 52-year-old gentleman with AIDS, alcohol abuse, tobacco abuse, with a history of sex offender who has lived in very poor conditions for many years and currently is admitted with acute renal failure, hypokalemia and dehydration. Probably that was triggered by C. difficile colitis, although I do not see any indication that he recently received any antibiotics. He is being treated with by mouth vancomycin with minimal improvement. Will add IV Flagyl. He has this peculiar rash which could be consistent with ecthyma gangrenosum versus a Rickettsial illness. Patient has been laying around mice and rats and cats and could have flea bites, mites, etc., that could be a Rickettsial illness as well, although the patient is not febrile and denies any headache. His LFTs are normal. PLAN: 1. Continue with by mouth vancomycin 250 mg every 6 hours as needed. Add IV Flagyl at 500 mg every 8 hours. Continue with probiotics. Advance diet to regular. 2. Send serology for Rickettsial illness and [place] Spotted Fever. There is a concern for his thrombocytopenia with platelets dropping to 64 which could be consistent with Rickettsial illnesses versus heparin-induced. Would discontinue heparin products. Now that his creatinine has improved, he could resume Atripla. The patient was last seen on 05/05/2017, when he had his blood work and at that point his CD-4 count was 696 and viral load was undetectable.
--- NOTE | 2017-06-28 17:25 | REP ---
RIGHT PICC LINE PLACEMENT: The procedure was performed by NADEEM Vanessa under the direct supervision of Dr. Marquez. The procedure along with its risks, benefits and complications were discussed with the patient prior to the procedure. Informed consent was obtained both verbally and written. The patient was identified in the interventional suite and placed in a supine position. The right arm was prepped and draped in the usual sterile fashion. A procedural "time out" was performed to insure that the correct patient, site and procedure were being performed. Under ultrasound guidance, the right basilic vein was punctured. A thin guidewire was introduced and the needle was removed. A breakaway sheath was placed. Under fluoroscopic observation and via the breakaway sheath, a 27 cm, #5.5-Syriac dual lumen PICC line was placed with its tip at the superior vena cava. The catheter was flushed with heparinized saline and affixed to the patient's skin. The patient tolerated the procedure well and had no immediate complications. He was discharged back to the floor. Fluoroscopy time was 0.1 minute. Reviewed by NADEEM Vanessa 06/28/2017 05:44 PEdited and Signed by Reji Marquez MD 06/29/2017 04:34 P
[2017-06-28] MEDS ORDERED: SODIUM CHLORIDE 0.9% INJ 10 ML SYR IV PRN (18:15)
[2017-06-28] MEDS ORDERED: ALBUTEROL 90 MCG/ACT 8GM HFA INHALER INH PRN (20:00)
[2017-06-28 20:54] VITALS: BP 120/85
[2017-06-29] VITALS (7 sets, daily range): BP systolic 86–116; BP diastolic 52–80
[2017-06-29] MEDS: metroNIDAZOLE 500 MG in APPROPRIATE DILUENT 1 EA IV SCH ×3 (04:53→20:57)
[2017-06-29] MEDS: VANCOMYCIN ORAL SOL 250MG/5ML ORAL SYRINGE PO SCH ×3 (05:08→18:56)
[2017-06-29] MEDS: LEVOTHYROXINE 37.5MCG PER 1/2TAB (0.0375MG) PO SCH (05:08)
[2017-06-29] MEDS: KCL 10MEQ IN D5/0.45NS 1000ML 1,000 ML IV SCH (05:08)
[2017-06-29] MEDS: ATRIPLA TAB PO SCH (05:09)
[2017-06-29] MEDS: SODIUM CHLORIDE 0.9% INJ 10 ML SYR IV SCH ×2 (05:09→18:00)
[2017-06-29 05:37] LABS: MEAN CORPUSCULAR HEMOGLOBIN 35.9 pg (27.0-33.0); MEAN CORPUSCULAR HGB CONC 34.4 g/dl (32.0-36.5); MEAN CORPUSCULAR VOLUME 104.5 fl (80.0-96.0); RED CELL DISTRIBUTION WIDTH 14.8 % (11.5-14.5)
[2017-06-29 05:59] LABS: ANION GAP 11 MEQ/L (8-16); BLOOD UREA NITROGEN 23 MG/DL (7-18); CALCIUM LEVEL 6.6 MG/DL (8.5-10.1); CARBON DIOXIDE LEVEL 15 MEQ/L (21-32); CHLORIDE LEVEL 127 MEQ/L (98-107); CREATININE FOR GFR 0.65 MG/DL (0.70-1.30); GLOMERULAR FILTRATION RATE > 60.0 (>56); GLUCOSE, FASTING 89 MG/DL (70-105); MAGNESIUM LEVEL 1.6 MG/DL (1.8-2.4); POTASSIUM SERUM 2.9 MEQ/L (3.5-5.1); SODIUM LEVEL 153 MEQ/L (136-145)
[2017-06-29] MEDS ORDERED: D5W 1,000 ML IV SCH (08:00)
[2017-06-29] MEDS ORDERED: POTASSIUM CHLORIDE 10 MEQ SR TABLET PO ONE ×2 (08:00→14:00)
[2017-06-29] MEDS ORDERED: CALCIUM GLUCONATE 1,000 MG in D5W MINI-BAG PLUS 100 ML IV ONE (08:00)
[2017-06-29] MEDS: LACTOBACILLUS ACIDOPHILUS CAP (BACID) PO SCH ×3 (08:16→18:56)
[2017-06-29] MEDS: FOLIC ACID 1 MG TAB PO SCH (08:16)
[2017-06-29] MEDS: THIAMINE 100 MG TAB PO SCH (08:16)
[2017-06-29] MEDS: MULTIVITAMINS/MINERALS THERAP 1 TAB PO SCH (08:16)
[2017-06-29] MEDS: NYSTATIN CREAM 15 GM TOP SCH (08:18)
[2017-06-29] MEDS: NYSTATIN 100,000 UNITS/GM TOPICAL PWD 15 GM TOP SCH ×2 (09:00→21:11)
[2017-06-29 09:02] LABS: INR 1.25
--- NOTE | 2017-06-29 09:06 | REP ---
MRI LUMBAR SPINE WITHOUT CONTRAST: HISTORY: Compression fracture. COMPARISON: CT thoracic spine 06/27/2017. A rudimentary disc is present at the S1-2 level. Decreased signal intensity on T2-weighted images is present in the L4-5 and L5-S1 intervertebral discs. The L5-S1 intervertebral disc is decreased in height. These findings are consistent with disc degeneration. There is no disc bulge or herniation at the L1-2 and L2-3 levels. The nerves exit the neural foramina without compression. A diffuse disc bulge is present at the L3-4 level. There is minimal compression of the thecal sac. There is hypertrophy of the posterior articulating facets. The L3 nerves exit the neural foramina without compression. A diffuse disc bulge is present at the L4-5 level. There is hypertrophy of the ligamenta flava and posterior articulating facets. These findings produce minimal central canal stenosis. The L4 nerves exit the neural foramina without compression. A diffuse disc bulge is present at the L5-S1 level. There is minimal compression of the thecal sac. There is hypertrophy of the ligamenta flava and posterior articulating facets. The L5 nerves exit the neural foramina without compression. The conus medullaris is normal in appearance terminating at the level of the T12-L1 intervertebral disc. There is an acute compression fracture of the L1 vertebral body with moderate height loss and retropulsion. There is no subluxation. IMPRESSION: 1. Diffuse disc bulge at the L3-4 and L5-S1 levels with minimal thecal sac compression. 2. Minimal central canal stenosis at the L4-5 level secondary to disc bulge, ligamentous and facet hypertrophy. 3. Acute L1 compression fracture with moderate height loss and retropulsion. There is moderate spinal canal compromise. Signed by Joe Valladares MD 06/29/2017 09:25 A
--- NOTE | 2017-06-29 09:11 | REP ---
MR THORACIC SPINE WITHOUT CONTRAST: HISTORY: Fracture. COMPARISON: CT thoracic spine . A small right paracentral disc protrusion is present at the T9-10 level. There is minimal effacement of the thecal sac without spinal cord compression. The T9 neural foramina are patent. A Diffuse disc bulge is present at the T12-L1 level. There is minimal effacement of the thecal sac without spinal cord compression. The T12 neural foramina are patent. There is no other disc bulge or herniation. The remaining neural foramina are patent. Increased signal intensity on T2-weighted images is present in the inferior endplate of the T12 vertebral body. This represents degenerative change. Normal signal intensity is present in the remaining thoracic vertebral bodies. There is a compression fracture of the L1 vertebral body with moderate height loss. This is incompletely seen in this examination. IMPRESSION: 1. Small disc protrusion at the T9-10 level without spinal cord compression. 2. Diffuse disc bulge at the T12-L1 level without spinal cord compression. 3. There is a compression fracture of the L1 vertebral body that is incompletely seen in this examination. Please refer to CT of the thoracic spine and MR of the lumbar spine. Signed by Joe Valladares MD 06/29/2017 09:26 A
[2017-06-29] MEDS: MAG SULF 1GM/100ML (MAG RUN) 1 GM in APPROPRIATE DILUENT 1 EA IV SCH ×2 (09:58→11:05)
[2017-06-29] MEDS: KCL 10MEQ IN 100ML SWI (KRUN) 10 MEQ in APPROPRIATE DILUENT 1 EA IV SCH ×8 (12:42→18:56)
--- NOTE | 2017-06-29 14:11 | IPNPDOC ---
Subjective Date Seen The patient was seen on 06/29/17. Subjective Chief Complaint/HPI Patient seen and examined at the bedside this morning. States that he is feeling better, and notes that his abdominal pain has resolved, and that his stools have decreased in frequency but remain loose in consistency. He denies any other acute complaint at this time. Objective Physical Examination General Exam: Positive: Alert, Cooperative, No Acute Distress, Other ( cachectic appearing, with bitemporal wasting noted) ENT Exam: Positive: Mucous membr. moist/pink Neck Exam: Negative: JVD Chest Exam: Positive: Clear to auscultation, Normal air movement Heart Exam: Positive: Rate Normal, Normal S1, Normal S2 Abdomen Exam: Positive: Soft, Negative: Tenderness Extremity Exam: Negative: Tenderness, Swelling Neuro Exam: Positive: Strength at 5/5 X4 ext Assessment /Plan Plan/VTE VTE Prophylaxis Ordered?: Yes Plan/Urinary Catheter Reason for insertion/continuin: Critical Pt monitoring Plan Clostridium difficile colitis Continue on oral vancomycin and IV Flagyl as per ID White blood cell count down trending, the patient has remained afebrile IV fluid hydration ordered Patient reports that abdominal pain has resolved, tolerating PO diet, and decrease in frequency of stools We will continue to monitor the patient's progress Infectious diseases on board GI panel also positive for Enteropathogenic Escherichia coli Continue supportive medical management as delineated above T12 and L1 Compression Fracture No acute neurological findings noted Orthopedic Service on board--MRI with STIR protocol of the Thoracic and Lumbar Spine results noted Zhou Gavin and W.B.A.T. with PT ordered Will follow up with further Ortho recommendations Thrombocytopenia possibly 2/2 C. Diff Infection Platelet count 63K this AM (149K on admission) No active signs of bleeding noted Heparin products have been discontinued Heparin induced platelet antibody noted to be 0.9---however I do not suspect that the patient currently has HIT. His 4 T-Score was of Low Probability (2) to begin with, and his clinical presentation does not match with that of HIT. The patient's thrombocytopenia can be much better explained by the patient's acute C. Diff infection, and chronic alcohol abuse with poor nutritional status. At this time, we will continue to monitor his platelet count as it appears to be upward trending. Acute kidney injury 2/2 C. Diff Diarrhea, decreased PO Intake, resolved Initial serum creatinine noted to be 2.8 (Baseline Cr 0.5-0.7) Serum Cr improved to 0.65 this AM Continue IV fluid hydration Nephrotoxins held We will cont to monitor serum Cr Hypernatremia likely 2/2 Decreased PO Intake IVF with D5W ordered Encouraged PO Water Intake We will monitor serum Na levels Hypokalemia, Hypomagnesemia, Hypocalcemia Likely 2/2 Poor PO Intake, Diarrhea, and Alcohol abuse We have repleted these lytes in the AM Will recheck lytes to monitor Dietary consult ordered History of AIDS Follows with Dr. Marquez of ID as outpatient Cont home meds ID consulted here History of alcohol abuse Thiamine, folic acid, multivitamins ordered Serax when necessary Hypothyroidism Continue levothyroxine Severe protein calorie nutrition BMI 12 By mouth intake encouraged We will add ensure 3 times a day Dietary consulted DVT prophylaxis SCDs (thrombocytopenia) Prognosis: Long-term prognosis poor VS, I&O, 24H, Fishbone Vital Signs/I&O Vital Signs Date Time Temp Pulse Resp B/P (MAP) Pulse Ox O2 Delivery O2 Flow Rate FiO2 06/29/17 13:11 92 Room Air 06/29/17 12:22 96/52 (67) 06/29/17 12:00 97.2 79 19 I&O- Last 24 Hours up to 6 AM 06/29/17 05:59 Intake Total 2000 ml Output Total 700 ml Balance 1300 ml Laboratory Data 24H LABS Laboratory Tests 2 06/29/17 05:07: Anion Gap 11, Glomerular Filtration Rate > 60.0, Blood Urea Nitrogen 23H, Creatinine 0.65L, Sodium Level 153H, Potassium Level 2.9*L, Chloride Level 127H , Carbon Dioxide Level 15L, Calcium Level 6.6L, Magnesium Level 1.6L 06/29/17 08:37: Prothrombin Time 15.9H, Prothromb Time International Ratio 1.25, Activated Partial Thromboplast Time 50.1H CBC/BMP Laboratory Tests 06/29/17 05:07 Red Blood Count 2.50 L, Mean Corpuscular Volume 104.5 H, Mean Corpuscular Hemoglobin 35.9 H, Mean Corpuscular Hemoglobin Concent 34.4, Red Cell Distribution Width 14.8 H, Calcium Level 6.6 L Microbiology Microbiology 06/26/17 Blood Culture - Preliminary, Resulted No Growth after 48 hours. All Specime... 06/26/17 Blood Culture - Preliminary, Resulted No Growth after 48 hours. All Specime... 06/25/17 Gastrointestinal Tract Panel (PCR) - Final, Complete Clostridium Difficile A/B Enteropathogenic E.coli 06/27/17 Urine Culture - Final, Complete JAYY SCHMIDT MD Jun 29, 2017 14:11
--- NOTE | 2017-06-29 14:49 | IPN ---
DATE: 06/28/2017 Valentino seems to be doing better. He is an better mood today. He is more alert even though he is still sluggish and I have a hard time understanding him, he has repeat himself a couple times. He is improved. He still has a Ram catheter. Urine output is 545 mL yesterday and today 350. Diarrhea has decreased, it has more formed consistency. LABORATORY DATA White count is 12.3, hemoglobin 10.2, hematocrit 29.7, platelets 53. Sodium 148 , potassium 3.6, chloride 123, bicarbonate 18, BUN 28, creatinine 0.97, glucose 94 , calcium 7.2, magnesium 2. Urine culture is pending. Lumbar spine and thoracic MRI were done and are still pending. The patient was seen in consultation with Dr. Woodward regarding L1 compression fracture. PHYSICAL EXAMINATION Thin, chronically ill gentleman in no acute distress. Temperature is 96.7, pulse 77, respirations 20, blood pressure 113/69, oxygen saturation 97% on room air. HEART: Normal S1, S2 with no murmurs. LUNGS: Few expiratory wheezes bilaterally. ABDOMEN: Soft, nontender. EXTREMITIES: No clubbing, cyanosis or edema. He has multiple macular rashes with a central eschar, purplish in color, some ranging between 1-2 cm. There are no new lesions. They are nontender to touch and mildly pruritic. IMPRESSION 1. AIDS, on Atripla. The patient had a history of 100% compliance with medications with CD4 over 600 and viral load undetectable. His kidney function is normal. He can be continued on same medication. 2. Acute kidney injury, improving. BUN is down to 28, creatinine is normal. The patient still has some metabolic acidosis. 3. Rash, most likely related to insect bites, may be fleas. Serology for Rickettsial illness have been sent, although my suspicion is very low. 4. Cdiff colitis on PO Vancomycin probiotics and IV flagyl PLAN: Continue IV Flagyl until diarrhea improves. Continue with oral vancomycin 250 mg every 6 hours and probiotic. Encourage drinking Ensure. I have called [facility] to come visit the patient to discuss housing with our case management. [facility]
[2017-06-29 18:14] LABS: ANION GAP 9 MEQ/L (8-16); BLOOD UREA NITROGEN 18 MG/DL (7-18); CALCIUM LEVEL 7.3 MG/DL (8.5-10.1); CARBON DIOXIDE LEVEL 15 MEQ/L (21-32); CHLORIDE LEVEL 122 MEQ/L (98-107); CREATININE FOR GFR 0.64 MG/DL (0.70-1.30); GLOMERULAR FILTRATION RATE > 60.0 (>56); GLUCOSE, FASTING 82 MG/DL (70-105); MAGNESIUM LEVEL 2.2 MG/DL (1.8-2.4); POTASSIUM SERUM 4.3 MEQ/L (3.5-5.1); SODIUM LEVEL 146 MEQ/L (136-145)
[2017-06-29] MEDS ORDERED: KCL 10MEQ IN STERILE WATER 100ML As Ordered ONE (18:51)
[2017-06-30] MEDS: VANCOMYCIN ORAL SOL 250MG/5ML ORAL SYRINGE PO SCH ×4 (00:33→17:04)
[2017-06-30] MEDS: metroNIDAZOLE 500 MG in APPROPRIATE DILUENT 1 EA IV SCH ×2 (04:18→11:27)
[2017-06-30] MEDS: LEVOTHYROXINE 37.5MCG PER 1/2TAB (0.0375MG) PO SCH (05:45)
[2017-06-30] MEDS: ATRIPLA TAB PO SCH (05:45)
[2017-06-30] MEDS: SODIUM CHLORIDE 0.9% INJ 10 ML SYR IV SCH ×2 (05:46→17:05)
[2017-06-30 06:00] VITALS: BP 111/67
[2017-06-30 06:17] LABS: MEAN CORPUSCULAR HEMOGLOBIN 35.2 pg (27.0-33.0); MEAN CORPUSCULAR HGB CONC 33.7 g/dl (32.0-36.5); MEAN CORPUSCULAR VOLUME 104.7 fl (80.0-96.0); RED CELL DISTRIBUTION WIDTH 15.5 % (11.5-14.5); WHITE BLOOD COUNT 10.4 K/mm3 (4.0-10.0)
[2017-06-30 06:32] LABS: ANION GAP 10 MEQ/L (8-16); BLOOD UREA NITROGEN 17 MG/DL (7-18); CALCIUM LEVEL 6.9 MG/DL (8.5-10.1); CARBON DIOXIDE LEVEL 13 MEQ/L (21-32); CHLORIDE LEVEL 125 MEQ/L (98-107); CREATININE FOR GFR 0.61 MG/DL (0.70-1.30); GLOMERULAR FILTRATION RATE > 60.0 (>56); GLUCOSE, FASTING 82 MG/DL (70-105); POTASSIUM SERUM 4.5 MEQ/L (3.5-5.1); SODIUM LEVEL 148 MEQ/L (136-145)
[2017-06-30] MEDS ORDERED: D5W 1,000 ML IV ONE (07:00)
[2017-06-30 07:25] LABS: REASON FOR REVIEW COMPREHENSIVE REVIEW
[2017-06-30 07:31] LABS: PERCENT SATURATION 23.7 % (19.7-50.0)
[2017-06-30] MEDS ORDERED: CALCIUM GLUCONATE 1,000 MG in D5W MINI-BAG PLUS 100 ML IV ONE (08:00)
[2017-06-30] MEDS: FOLIC ACID 1 MG TAB PO SCH (08:46)
[2017-06-30] MEDS: THIAMINE 100 MG TAB PO SCH (08:46)
[2017-06-30] MEDS: LACTOBACILLUS ACIDOPHILUS CAP (BACID) PO SCH ×3 (08:46→17:04)
[2017-06-30] MEDS: MULTIVITAMINS/MINERALS THERAP 1 TAB PO SCH (08:46)
[2017-06-30] MEDS: NYSTATIN 100,000 UNITS/GM TOPICAL PWD 15 GM TOP SCH ×2 (08:47→21:24)
--- NOTE | 2017-06-30 10:51 | IPNPDOC ---
Subjective Date Seen The patient was seen on 06/30/17. Subjective Chief Complaint/HPI Patient seen and examined at the bedside. States that his bowel movements are slowly becoming more formed. Denies any abdominal complaints. Notes that he is tolerating his by mouth diet well. Denies any other acute complaints at this time. Objective Physical Examination General Exam: Positive: Alert, Cooperative, No Acute Distress, Other ( cachectic appearing, with bitemporal wasting noted) ENT Exam: Positive: Mucous membr. moist/pink Neck Exam: Negative: JVD Chest Exam: Positive: Clear to auscultation, Normal air movement Heart Exam: Positive: Rate Normal, Normal S1, Normal S2 Abdomen Exam: Positive: Soft, Negative: Tenderness Extremity Exam: Negative: Tenderness, Swelling Neuro Exam: Positive: Strength at 5/5 X4 ext Assessment /Plan Plan/VTE VTE Prophylaxis Ordered?: Yes Plan/Urinary Catheter Reason for insertion/continuin: Critical Pt monitoring Plan Clostridium difficile colitis Continue on oral vancomycin and IV Flagyl as per ID White blood cell count down trending, the patient has remained afebrile IV fluid hydration ordered Patient reports that abdominal pain has resolved, tolerating PO diet, and decrease in frequency of stools We will continue to monitor the patient's progress Infectious diseases on board GI panel also positive for Enteropathogenic Escherichia coli Continue supportive medical management as delineated above Non-Anion Gap Metabolic Acidosis 2/2 Above (Diarrhea) We will cont to monitor the patient's labs, and provide supportive medical treatment as outline above T12 and L1 Compression Fracture No acute neurological findings noted Orthopedic Service on board--MRI with STIR protocol of the Thoracic and Lumbar Spine results noted Zhou Gavin and PeterAShira with PT ordered Will follow up with further Ortho recommendations Thrombocytopenia possibly 2/2 C. Diff Infection Platelet count trending upward No active signs of overt bleeding noted Heparin products have been discontinued Heparin induced platelet antibody noted to be 0.9---however I do not suspect that the patient currently has HIT. His 4 T-Score was of Low Probability (2) to begin with, and his clinical presentation does not match with that of HIT. The patient's thrombocytopenia can be much better explained by the patient's acute C. Diff infection, and chronic alcohol abuse with poor nutritional status. At this time, we will continue to monitor his platelet count as it appears to be upward trending. Macrocytic Anemia Hgb trending downward, 8.4 this AM (Baseline ~13) No overt signs of bleeding noted Fecal stool for occult blood ordered Peripheral smear suggestive of multifactorial etiology Iron studies indicative of underlying iron deficiency Possible Element of Dilution from IVF Hydration Will repeat H&H this afternoon Will transfuse blood products as indicated Acute kidney injury 2/2 C. Diff Diarrhea, decreased PO Intake, resolved Initial serum creatinine initially noted to be 2.8 (Baseline Cr 0.5-0.7) Serum Cr back to baseline limits Continue IV fluid hydration Nephrotoxins held We will cont to monitor serum Cr Hypernatremia likely 2/2 Decreased PO Intake IVF with D5W ordered Encouraged PO Water Intake We will monitor serum Na levels Hypokalemia, Hypomagnesemia, Hypocalcemia Likely 2/2 Poor PO Intake, Diarrhea, and Alcohol abuse We will replete these lytes as indicated Dietary consulted History of AIDS Follows with Dr. Marquez of [place] as outpatient Cont home meds ID consulted here History of alcohol abuse Thiamine, folic acid, multivitamins ordered Serax when necessary Hypothyroidism Continue levothyroxine Severe protein calorie nutrition BMI 12 By mouth intake encouraged We will add ensure 3 times a day Dietary consulted DVT prophylaxis SCDs (thrombocytopenia) Prognosis: Long-term prognosis poor VS, I&O, 24H, Fishbone Vital Signs/I&O Vital Signs Date Time Temp Pulse Resp B/P (MAP) Pulse Ox O2 Delivery O2 Flow Rate FiO2 06/30/17 10:32 Room Air 06/30/17 06:00 98.3 82 20 111/67 (82) 98 I&O- Last 24 Hours up to 6 AM 06/30/17 06:00 Intake Total 1160 ml Output Total 150 ml Balance 1010 ml Laboratory Data 24H LABS Laboratory Tests 2 06/29/17 17:11: Anion Gap 9, Glomerular Filtration Rate > 60.0, Blood Urea Nitrogen 18, Creatinine 0.64L, Sodium Level 146H, Potassium Level 4.3#, Chloride Level 122H, Carbon Dioxide Level 15L, Calcium Level 7.3L, Magnesium Level 2.2 06/30/17 05:49: Differential Slide Review Report, Differential Pathologist's Review COMPREHENSIVE REVIEW, Peripheral Blood Smear Path Consult PERIPHERAL SMEAR 06/30/17 05:59: Anion Gap 10, Glomerular Filtration Rate > 60.0, Blood Urea Nitrogen 17, Creatinine 0.61L, Sodium Level 148H, Potassium Level 4.5, Chloride Level 125H, Carbon Dioxide Level 13L, Calcium Level 6.9L, Magnesium Level 2.0 06/30/17 06:49: Iron Level 23L, Total Iron Binding Capacity 97L, Transferrin % Saturation 23.7, Ferritin 209 CBC/BMP Laboratory Tests 06/29/17 17:11 Calcium Level 7.3 L 06/30/17 05:59 Calcium Level 6.9 L, Red Blood Count 2.40 L, Mean Corpuscular Volume 104.7 H, Mean Corpuscular Hemoglobin 35.2 H, Mean Corpuscular Hemoglobin Concent 33.7, Red Cell Distribution Width 15.5 H Microbiology Microbiology 06/26/17 Blood Culture - Preliminary, Resulted No Growth after 72 hours. All specime... 06/26/17 Blood Culture - Preliminary, Resulted No Growth after 72 hours. All specime... 06/25/17 Gastrointestinal Tract Panel (PCR) - Final, Complete Clostridium Difficile A/B Enteropathogenic E.coli 06/27/17 Urine Culture - Final, Complete JAYY SCHMIDT MD Jun 30, 2017 10:51
[2017-06-30 11:03] LABS: FOLATE 3.2 NG/ML (>5.4)
[2017-06-30] MEDS: FERROUS SULFATE 325MG TAB PO SCH ×2 (11:27→21:24)
[2017-06-30 22:00] VITALS: BP 104/68
[2017-07-01 00:06] LABS: THYPHUS FEVER GROUP IgG <1:64 (Neg:<1:64); THYPHUS FEVER GROUP IgM <1:64 (Neg:<1:64)
[2017-07-01] MEDS: CALCIUM CARBONATE 500 MG CHEW U/D PO PRN (02:10)
[2017-07-01] MEDS: VANCOMYCIN ORAL SOL 250MG/5ML ORAL SYRINGE PO SCH ×4 (02:10→17:18)
[2017-07-01] MEDS: LEVOTHYROXINE 37.5MCG PER 1/2TAB (0.0375MG) PO SCH (05:23)
[2017-07-01] MEDS: ATRIPLA TAB PO SCH (05:23)
[2017-07-01] MEDS: SODIUM CHLORIDE 0.9% INJ 10 ML SYR IV SCH ×2 (05:23→17:18)
[2017-07-01 05:46] LABS: MEAN CORPUSCULAR HGB CONC 34.4 g/dl (32.0-36.5); MEAN CORPUSCULAR VOLUME 104.6 fl (80.0-96.0); RED CELL DISTRIBUTION WIDTH 15.5 % (11.5-14.5); WHITE BLOOD COUNT 6.9 K/mm3 (4.0-10.0)
[2017-07-01 06:00] VITALS: BP 114/70
[2017-07-01 06:08] LABS: ANION GAP 9 MEQ/L (8-16); BLOOD UREA NITROGEN 14 MG/DL (7-18); CALCIUM LEVEL 6.9 MG/DL (8.5-10.1); CARBON DIOXIDE LEVEL 16 MEQ/L (21-32); CHLORIDE LEVEL 118 MEQ/L (98-107); CREATININE FOR GFR 0.64 MG/DL (0.70-1.30); GLOMERULAR FILTRATION RATE > 60.0 (>56); GLUCOSE, FASTING 92 MG/DL (70-105); MAGNESIUM LEVEL 1.7 MG/DL (1.8-2.4); POTASSIUM SERUM 3.5 MEQ/L (3.5-5.1); SODIUM LEVEL 143 MEQ/L (136-145)
[2017-07-01] MEDS ORDERED: POTASSIUM CHLORIDE 10 MEQ SR TABLET PO ONE (08:00)
[2017-07-01] MEDS: THIAMINE 100 MG TAB PO SCH (08:17)
[2017-07-01] MEDS: MULTIVITAMINS/MINERALS THERAP 1 TAB PO SCH (08:17)
[2017-07-01] MEDS: FOLIC ACID 1 MG TAB PO SCH (08:17)
[2017-07-01] MEDS: LACTOBACILLUS ACIDOPHILUS CAP (BACID) PO SCH ×3 (08:17→17:18)
[2017-07-01] MEDS: FERROUS SULFATE 325MG TAB PO SCH ×2 (08:17→21:14)
[2017-07-01] MEDS: MAG SULF 1GM/100ML (MAG RUN) 1 GM in APPROPRIATE DILUENT 1 EA IV SCH ×2 (08:18→09:48)
[2017-07-01] MEDS: NYSTATIN 100,000 UNITS/GM TOPICAL PWD 15 GM TOP SCH ×2 (08:19→21:14)
[2017-07-01] MEDS ORDERED: CALCIUM GLUCONATE 1,000 MG in D5W MINI-BAG PLUS 100 ML IV ONE (09:00)
--- NOTE | 2017-07-01 13:21 | IPNPDOC ---
Subjective Date Seen The patient was seen on 07/01/17. Subjective Chief Complaint/HPI Patient seen and examined at the bedside this morning. States that his condition continues to slowly improve. Denies any acute complaints at this time. Objective Physical Examination General Exam: Positive: Alert, Cooperative, No Acute Distress, Other ( cachectic appearing, with bitemporal wasting noted) ENT Exam: Positive: Mucous membr. moist/pink Neck Exam: Negative: JVD Chest Exam: Positive: Clear to auscultation, Normal air movement Heart Exam: Positive: Rate Normal, Normal S1, Normal S2 Abdomen Exam: Positive: Soft, Negative: Tenderness Extremity Exam: Negative: Tenderness, Swelling Neuro Exam: Positive: Strength at 5/5 X4 ext Assessment /Plan Plan/VTE VTE Prophylaxis Ordered?: Yes Plan/Urinary Catheter Reason for insertion/continuin: Critical Pt monitoring Plan Clostridium difficile colitis Continue on oral vancomycin as per ID (Started on 06/26/17), IV Flagyl d/c'd White blood cell count has normalized, the patient has remained afebrile Patient reports that abdominal pain has resolved, tolerating PO diet, and decrease in frequency of stools We will continue to monitor the patient's progress Infectious diseases on board GI panel also positive for Enteropathogenic Escherichia coli Continue supportive medical management as delineated above Non-Anion Gap Metabolic Acidosis 2/2 Above (Diarrhea) We will cont to monitor the patient's labs, and provide supportive medical treatment as outline above T12 and L1 Compression Fracture No acute neurological findings noted Orthopedic Service on board--MRI with STIR protocol of the Thoracic and Lumbar Spine results noted Zhou Gavin and HalinaBCuongA.Snow with PT ordered Will follow up with further Ortho recommendations Thrombocytopenia possibly 2/2 C. Diff Infection Platelet count trending upward No active signs of overt bleeding noted Heparin products have been discontinued Heparin induced platelet antibody noted to be 0.9---however I do not suspect that the patient currently has HIT. His 4 T-Score was of Low Probability (2) to begin with, and his clinical presentation does not match with that of HIT. The patient's thrombocytopenia can be much better explained by the patient's acute C. Diff infection, and chronic alcohol abuse with poor nutritional status. At this time, we will continue to monitor his platelet count as it appears to be upward trending. Macrocytic Anemia Hgb fluctuating this AM, 8.2 (Baseline ~13) No overt signs of bleeding noted Fecal stool for occult blood pending Peripheral smear suggestive of multifactorial etiology Iron studies indicative of underlying iron deficiency--Iron Supplementation ordered Possible Element of Dilution from IVF Hydration Will monitor H&H Will transfuse blood products as indicated Acute kidney injury 2/2 C. Diff Diarrhea, decreased PO Intake, resolved Initial serum creatinine initially noted to be 2.8 (Baseline Cr 0.5-0.7) Serum Cr back to baseline limits Continue IV fluid hydration Nephrotoxins held We will cont to monitor serum Cr Hypernatremia likely 2/2 Decreased PO Intake, resolved s/p IVF Hydration Encouraged PO Water Intake We will monitor serum Na levels Hypokalemia, Hypomagnesemia, Hypocalcemia Likely 2/2 Poor PO Intake, Diarrhea, and Alcohol abuse We will replete these lytes as indicated Dietary consulted History of AIDS Follows with Dr. Marquez of ID as outpatient Cont home meds ID consulted here History of alcohol abuse Thiamine, folic acid, multivitamins ordered Serax when necessary Hypothyroidism Continue levothyroxine Severe protein calorie nutrition BMI 12 By mouth intake encouraged We will add ensure 3 times a day Dietary consulted DVT prophylaxis SCDs (thrombocytopenia) Prognosis: Long-term prognosis poor Disposition-physical therapy on board for functional optimization, home versus short-term rehabilitation. PFS also on board. VS, I&O, 24H, Fishbone Vital Signs/I&O Vital Signs Date Time Temp Pulse Resp B/P (MAP) Pulse Ox O2 Delivery O2 Flow Rate FiO2 07/01/17 13:03 Room Air 07/01/17 06:00 98.5 94 18 114/70 (85) 98 I&O- Last 24 Hours up to 6 AM 07/01/17 06:00 Intake Total 1990 ml Output Total 675 ml Balance 1315 ml Laboratory Data 24H LABS Laboratory Tests 2 07/01/17 05:31: Anion Gap 9, Glomerular Filtration Rate > 60.0, Blood Urea Nitrogen 14, Creatinine 0.64L, Sodium Level 143, Potassium Level 3.5#, Chloride Level 118H, Carbon Dioxide Level 16L, Calcium Level 6.9L, Magnesium Level 1.7L CBC/BMP Laboratory Tests 06/30/17 13:20 07/01/17 05:31 Red Blood Count 2.05 L, Mean Corpuscular Volume 104.6 H, Mean Corpuscular Hemoglobin 36.0 H, Mean Corpuscular Hemoglobin Concent 34.4, Red Cell Distribution Width 15.5 H, Calcium Level 6.9 L 07/01/17 12:13 Microbiology Microbiology 06/26/17 Blood Culture - Preliminary, Resulted No Growth after 72 hours. All specime... 06/26/17 Blood Culture - Preliminary, Resulted No Growth after 72 hours. All specime... 06/25/17 Gastrointestinal Tract Panel (PCR) - Final, Complete Clostridium Difficile A/B Enteropathogenic E.coli 06/27/17 Urine Culture - Final, Complete JAYY SCHMIDT MD Jul 01, 2017 13:21
[2017-07-01 14:00] VITALS: BP 126/78
--- NOTE | 2017-07-01 17:38 | IPN ---
DATE: 06/30/2017 SUBJECTIVE: Valentino seems to be doing much better. He is sitting in bed and feeding himself. He has a big meatloaf and mashed potatoes. He has no complaints. LABORATORY DATA: White count of 10.4, hemoglobin 8.4, hematocrit 25.1, platelets 87. Sodium 148, potassium 4.5, chloride 125, bicarb 13, BUN 17, creatinine 0.6, glucose 82, calcium 6.9, magnesium two. Iron 123, TIBC 97, iron saturation 23, ferritin 209, vitamin B12 1028, folate 3.2. MICROBIOLOGY: Stool positive for Clostridium (C.) difficile and enteropathogenic Escherichia (E.) coli. Blood cultures are negative and urine culture was negative. PHYSICAL EXAMINATION: VITAL SIGNS: Temperature is 98.1, pulse 85, respirations 20, blood pressure 111/67, oxygen saturation 97% on room air. HEART: Normal S1, S2. LUNGS: Diffuse expiratory wheezes. ABDOMEN: Soft, nontender. No hepatosplenomegaly. Ram catheter in place with still dark urine. EXTREMITIES: No edema. Multiple hemorrhagic lesions with purplish discoloration and central scab are subsiding. No new lesions noted. IMPRESSION: 1, Clostridium (C.) difficile colitis, improving on oral vancomycin, probiotic, and intravenous (IV) Flagyl. IV Flagyl will be discontinued. 2. Anemia of chronic disease, possibly folate deficiency, although previous folate was done on admission and was 5.4. Continue with multivitamin. 3. AIDS on Atripla with CD-4 over 600 and viral load undetectable a couple months ago. PLAN: Discontinue IV Flagyl. Discontinue Ram catheter. Encourage ambulation. The patient will need assistance with housing. Please call [facility] for help with assistance for case management and housing.
[2017-07-01 22:00] VITALS: BP 112/74
[2017-07-02] MEDS: VANCOMYCIN ORAL SOL 250MG/5ML ORAL SYRINGE PO SCH ×5 (00:10→23:49)
[2017-07-02 06:00] VITALS: BP 121/70
[2017-07-02] MEDS: SODIUM CHLORIDE 0.9% INJ 10 ML SYR IV SCH ×2 (06:00→18:23)
[2017-07-02] MEDS: LEVOTHYROXINE 37.5MCG PER 1/2TAB (0.0375MG) PO SCH (06:13)
[2017-07-02] MEDS: ATRIPLA TAB PO SCH (06:13)
[2017-07-02 06:32] LABS: MEAN CORPUSCULAR HGB CONC 33.4 g/dl (32.0-36.5); MEAN CORPUSCULAR VOLUME 104.8 fl (80.0-96.0); RED CELL DISTRIBUTION WIDTH 16.4 % (11.5-14.5); WHITE BLOOD COUNT 6.3 K/mm3 (4.0-10.0)
[2017-07-02 06:51] LABS: ANION GAP 11 MEQ/L (8-16); BLOOD UREA NITROGEN 12 MG/DL (7-18); CALCIUM LEVEL 6.6 MG/DL (8.5-10.1); CARBON DIOXIDE LEVEL 16 MEQ/L (21-32); CHLORIDE LEVEL 118 MEQ/L (98-107); CREATININE FOR GFR 0.52 MG/DL (0.70-1.30); GLOMERULAR FILTRATION RATE > 60.0 (>56); GLUCOSE, FASTING 90 MG/DL (70-105); MAGNESIUM LEVEL 2.1 MG/DL (1.8-2.4); POTASSIUM SERUM 3.9 MEQ/L (3.5-5.1); SODIUM LEVEL 145 MEQ/L (136-145)
[2017-07-02] MEDS ORDERED: CALCIUM GLUCONATE 1,000 MG in D5W MINI-BAG PLUS 100 ML IV ONE (09:00)
[2017-07-02] MEDS: NYSTATIN 100,000 UNITS/GM TOPICAL PWD 15 GM TOP SCH ×2 (09:00→21:55)
[2017-07-02] MEDS: THIAMINE 100 MG TAB PO SCH (09:37)
[2017-07-02] MEDS: MULTIVITAMINS/MINERALS THERAP 1 TAB PO SCH (09:37)
[2017-07-02] MEDS: FOLIC ACID 1 MG TAB PO SCH (09:37)
[2017-07-02] MEDS: LACTOBACILLUS ACIDOPHILUS CAP (BACID) PO SCH ×3 (09:37→18:23)
[2017-07-02] MEDS: FERROUS SULFATE 325MG TAB PO SCH ×2 (09:37→21:54)
--- NOTE | 2017-07-02 13:24 | IPN ---
DATE: 07/01/2017 He is a patient on the medical service. He was recently seen by my partner, Dr. Abdirahman Woodward who did ask me to stop by and review his case. This is a 52-year-old who was admitted with lethargy, dehydration and renal failure to the hospitalist service. He was noted on an abdominal CT to have a compression fracture of the L1 age indeterminate. It appeared to be vertebral plane. He was recently diagnosed with Clostridium difficile and diarrhea. I visited the patient this morning, 07/01/2017, at about 8 o'clock. He was talking on the telephone. I introduced myself and the patient declined to acknowledge my presence. He continued talking on the telephone. I took some historical information from his nurse who told me that the patient was not in much distress but he did not do much in terms of getting out of bed in his brace and that he complained that the brace was to loose and that they had planned to have brace orthotics come by and adjust the brace. PAST MEDICAL HISTORY: Includes acquired immune deficiency, pneumocystic pneumonia, chronic alcohol abuse, chronic obstructive pulmonary disease, attention deficit hyperactivity, oral candidiasis, bronchitis, history of smoking. SURGICAL: HISTORY: Not known. FAMILY HISTORY: Noncontributory. SOCIAL HISTORY: He smokes and drinks. ALLERGIES: NO KNOWN DRUG ALLERGIES. Multiple outpatient medications, and sees Dr. Marquez, that was reviewed. On clinical examination today, he seems to be alert and he is conversing on the telephone. He does not seem to acknowledge my presence after I announced myself in the room. He is not in any distress and seems to have healthy skin in the face, upper and lower extremities, and he seems to move all extremities to some degree. IMAGING STUDIES: I reviewed his MRI. He has a compression fracture at the L1 level. It is vertical plane. Other significant loss of height on the MRI study appears to be acute and there is moderate spinal stenosis of the canal. CT scan reflects same. IMPRESSION: Likely subacute compression fracture L1 level. RECOMMENDATIONS: The patient is being treated for a number of afflictions including Clostridium (C) difficile. He has a peripherally inserted central catheter (PICC) line. My recommendations include further evaluation with infectious disease to make sure that the acute inflamed compression fracture does not develop infection or osteomyelitis. From a surgical perspective, in my opinion, this patient medically is no candidate for surgical procedure. Further, in my opinion, socially, I am not sure that this patient could cooperate or would cooperate with any postoperative retaining even if medically he might be a surgical candidate, but again, I do not think that medically at this stage or probably any stage he would be a candidate for any type of spine surgery such as fusion procedure. I would recommend continued use of the brace when he is out of bed, pain management and continue management of the C difficile and other medical issues.
[2017-07-02 14:00] VITALS: BP 115/69
--- NOTE | 2017-07-02 15:11 | IPNPDOC ---
Subjective Date Seen The patient was seen on 07/02/17. Subjective Chief Complaint/HPI Patient seen and examined at the bedside this morning. States that he is feeling better and has been working with physical therapy. Denies any complaints of abdominal pain, and notes that his stools continue to become more formed and less frequent. Objective Physical Examination General Exam: Positive: Alert, Cooperative, No Acute Distress, Other ( cachectic appearing, with bitemporal wasting noted) ENT Exam: Positive: Mucous membr. moist/pink Neck Exam: Negative: JVD Chest Exam: Positive: Clear to auscultation, Normal air movement Heart Exam: Positive: Rate Normal, Normal S1, Normal S2 Abdomen Exam: Positive: Soft, Negative: Tenderness Extremity Exam: Negative: Tenderness, Swelling Assessment /Plan Plan/VTE VTE Prophylaxis Ordered?: Yes Plan/Urinary Catheter Reason for insertion/continuin: Critical Pt monitoring Plan Clostridium difficile colitis Continue on oral vancomycin as per ID (Started on 06/26/17), IV Flagyl d/c'd White blood cell count has normalized, the patient has remained afebrile Patient reports that abdominal pain has resolved, tolerating PO diet, and decrease in frequency of stools We will continue to monitor the patient's progress Infectious diseases on board Macrocytic Anemia Hgb fluctuating this AM, 6.7 (Baseline ~13) No overt signs of bleeding noted Fecal stool for occult blood still pending, re-ordered Peripheral smear suggestive of multifactorial etiology Iron studies indicative of underlying iron deficiency--Iron Supplementation ordered Possible Element of Dilution from IVF Hydration We will transfuse the patient 2 Units of PRBC's today Cont to monitor H&H GI panel also positive for Enteropathogenic Escherichia coli Continue supportive medical management as delineated above Non-Anion Gap Metabolic Acidosis 2/2 Above (Diarrhea) We will cont to monitor the patient's labs, and provide supportive medical treatment as outline above T12 and L1 Compression Fracture No acute neurological findings noted Orthopedic Service on board--MRI with STIR protocol of the Thoracic and Lumbar Spine results noted--Patient not a surgical candidate as per Dr. Heike Gavin and W.B.A.T. with PT ordered Appreciate Spinal Surgeon input Thrombocytopenia possibly 2/2 C. Diff Infection Platelet count trending upward No active signs of overt bleeding noted Heparin products have been discontinued Heparin induced platelet antibody noted to be 0.9---however I do not suspect that the patient currently has HIT. His 4 T-Score was of Low Probability (2) to begin with, and his clinical presentation does not match with that of HIT. The patient's thrombocytopenia can be much better explained by the patient's acute C. Diff infection, and chronic alcohol abuse with poor nutritional status. At this time, we will continue to monitor his platelet count as it appears to be upward trending. Acute kidney injury 2/2 C. Diff Diarrhea, decreased PO Intake, resolved Initial serum creatinine initially noted to be 2.8 (Baseline Cr 0.5-0.7) Serum Cr back to baseline limits Continue IV fluid hydration Nephrotoxins held We will cont to monitor serum Cr Hypernatremia likely 2/2 Decreased PO Intake, resolved s/p IVF Hydration Encouraged PO Water Intake We will monitor serum Na levels Hypokalemia, Hypomagnesemia, Hypocalcemia, resolved Likely 2/2 Poor PO Intake, Diarrhea, and Alcohol abuse We will replete these lytes as indicated Dietary consulted History of AIDS Follows with Dr. Marquez of [place] as outpatient Cont home meds ID consulted here History of alcohol abuse Thiamine, folic acid, multivitamins ordered Serax when necessary Hypothyroidism Continue levothyroxine Severe protein calorie nutrition BMI 12 By mouth intake encouraged We will add ensure 3 times a day Dietary consulted DVT prophylaxis SCDs (thrombocytopenia) Prognosis: Long-term prognosis poor Disposition-physical therapy on board for functional optimization, home versus short-term rehabilitation. PFS also on board. VS, I&O, 24H, Fishbone Vital Signs/I&O Vital Signs Date Time Temp Pulse Resp B/P (MAP) Pulse Ox O2 Delivery O2 Flow Rate FiO2 07/02/17 06:00 98.3 83 17 121/70 (87) 99 Room Air I&O- Last 24 Hours up to 6 AM 07/02/17 05:59 Intake Total 1080 ml Output Total 200 ml Balance 880 ml Laboratory Data 24H LABS Laboratory Tests 2 07/02/17 06:12: Anion Gap 11, Glomerular Filtration Rate > 60.0, Blood Urea Nitrogen 12, Creatinine 0.52L, Sodium Level 145, Potassium Level 3.9, Chloride Level 118H, Carbon Dioxide Level 16L, Calcium Level 6.6L, Magnesium Level 2.1 CBC/BMP Laboratory Tests 07/02/17 06:12 Red Blood Count 1.93 L, Mean Corpuscular Volume 104.8 H, Mean Corpuscular Hemoglobin 35.0 H, Mean Corpuscular Hemoglobin Concent 33.4, Red Cell Distribution Width 16.4 H, Calcium Level 6.6 L Microbiology Microbiology 06/26/17 Blood Culture - Final, Complete NO GROWTH AFTER 5 DAYS 06/26/17 Blood Culture - Final, Complete NO GROWTH AFTER 5 DAYS 06/25/17 Gastrointestinal Tract Panel (PCR) - Final, Complete Clostridium Difficile A/B Enteropathogenic E.coli 06/27/17 Urine Culture - Final, Complete JAYY SCHMIDT MD Jul 02, 2017 15:11
[2017-07-02] MEDS: ACETAMINOPHEN TAB 650MG DOSE (2X325MG) PO PRN (22:14)
[2017-07-03 06:00] VITALS: BP 128/69
[2017-07-03] MEDS: VANCOMYCIN ORAL SOL 250MG/5ML ORAL SYRINGE PO SCH ×4 (06:00→23:38)
[2017-07-03] MEDS: SODIUM CHLORIDE 0.9% INJ 10 ML SYR IV SCH ×2 (06:00→17:17)
[2017-07-03] MEDS: ATRIPLA TAB PO SCH (06:26)
[2017-07-03] MEDS: LEVOTHYROXINE 37.5MCG PER 1/2TAB (0.0375MG) PO SCH (06:26)
[2017-07-03 08:23] VITALS: BP 126/61
[2017-07-03] MEDS: NYSTATIN 100,000 UNITS/GM TOPICAL PWD 15 GM TOP SCH ×2 (09:00→22:43)
[2017-07-03] MEDS: LACTOBACILLUS ACIDOPHILUS CAP (BACID) PO SCH ×3 (09:54→17:17)
[2017-07-03] MEDS: FERROUS SULFATE 325MG TAB PO SCH ×2 (09:54→22:42)
[2017-07-03] MEDS: FOLIC ACID 1 MG TAB PO SCH (09:55)
[2017-07-03] MEDS: MULTIVITAMINS/MINERALS THERAP 1 TAB PO SCH (09:55)
[2017-07-03] MEDS: THIAMINE 100 MG TAB PO SCH (09:55)
[2017-07-03] MEDS ORDERED: SODIUM PHOSPHATE INJ 30 MMOL in D5W 500 ML IV ONE (10:00)
[2017-07-03] MEDS: K-PHOS NEUTRAL 250MG TABLET (SOD.PHOSPHATE/POT.PHOSPHATE) PO SCH ×3 (10:16→22:43)
[2017-07-03 10:29] LABS: MEAN CORPUSCULAR HGB CONC 35.4 g/dl (32.0-36.5); RED CELL DISTRIBUTION WIDTH 17.6 % (11.5-14.5); WHITE BLOOD COUNT 6.6 K/mm3 (4.0-10.0)
[2017-07-03 10:34] LABS: MEAN CORPUSCULAR VOLUME 96.1 fl (80.0-96.0)
--- NOTE | 2017-07-03 12:07 | IPNPDOC ---
Subjective Date Seen The patient was seen on 07/03/17. Subjective Chief Complaint/HPI Patient seen and examined at the bedside this morning. Denies any acute complaints this time. Objective Physical Examination General Exam: Positive: Alert, Cooperative, No Acute Distress, Other ( cachectic appearing, with bitemporal wasting noted) ENT Exam: Positive: Mucous membr. moist/pink Neck Exam: Negative: JVD Chest Exam: Positive: Clear to auscultation, Normal air movement Heart Exam: Positive: Rate Normal, Normal S1, Normal S2 Abdomen Exam: Positive: Soft, Negative: Tenderness Extremity Exam: Negative: Tenderness, Swelling Assessment /Plan Plan/VTE VTE Prophylaxis Ordered?: Yes Plan/Urinary Catheter Reason for insertion/continuin: Critical Pt monitoring Plan Clostridium difficile colitis Continue on oral vancomycin as per ID (Started on 06/26/17), IV Flagyl d/c'd. Will complete 10 day course. White blood cell count has normalized, the patient has remained afebrile Patient reports that abdominal pain has resolved, tolerating PO diet, and decrease in frequency of stools We will continue to monitor the patient's progress Infectious diseases on board Macrocytic Anemia s/p 2 Units of PRBC's on 07/02/17 Hgb stable this AM, 9.1 No overt signs of bleeding noted Fecal stool for occult blood negative Peripheral smear suggestive of multifactorial etiology Iron studies indicative of underlying iron deficiency--Iron Supplementation ordered Possible Element of Dilution from IVF Hydration Cont to monitor H&H GI panel also positive for Enteropathogenic Escherichia coli Continue supportive medical management as delineated above Non-Anion Gap Metabolic Acidosis 2/2 Above (Diarrhea) We will cont to monitor the patient's labs, and provide supportive medical treatment as outline above T12 and L1 Compression Fracture No acute neurological findings noted Orthopedic Service on board--MRI with STIR protocol of the Thoracic and Lumbar Spine results noted--Patient not a surgical candidate as per Dr. Heike Gavin and W.B.A.T. with PT ordered Appreciate Spinal Surgeon input Thrombocytopenia possibly 2/2 C. Diff Infection Platelet count trending upward No active signs of overt bleeding noted Heparin products have been discontinued Heparin induced platelet antibody noted to be 0.9---however I do not suspect that the patient currently has HIT. His 4 T-Score was of Low Probability (2) to begin with, and his clinical presentation does not match with that of HIT. The patient's thrombocytopenia can be much better explained by the patient's acute C. Diff infection, and chronic alcohol abuse with poor nutritional status. At this time, we will continue to monitor his platelet count as it appears to be upward trending. Acute kidney injury 2/2 C. Diff Diarrhea, decreased PO Intake, resolved Initial serum creatinine initially noted to be 2.8 (Baseline Cr 0.5-0.7) Serum Cr back to baseline limits Continue IV fluid hydration Nephrotoxins held We will cont to monitor serum Cr Hypernatremia likely 2/2 Decreased PO Intake, resolved s/p IVF Hydration Encouraged PO Water Intake We will monitor serum Na levels Hypokalemia, Hypomagnesemia, Hypocalcemia, Hypophosphatemia Likely 2/2 Poor PO Intake, Diarrhea, and Alcohol abuse We will replete these lytes as indicated Dietary consulted History of AIDS Follows with Dr. Marquez of ID as outpatient Cont home meds ID consulted here History of alcohol abuse Thiamine, folic acid, multivitamins ordered Serax when necessary Hypothyroidism Continue levothyroxine Severe protein calorie nutrition BMI 12 By mouth intake encouraged We will add ensure 3 times a day Dietary consulted DVT prophylaxis SCDs (thrombocytopenia) Prognosis: Long-term prognosis poor Disposition-physical therapy on board for functional optimization, home versus short-term rehabilitation. PFS also on board. VS, I&O, 24H, Fishbone Vital Signs/I&O Vital Signs Date Time Temp Pulse Resp B/P (MAP) Pulse Ox O2 Delivery O2 Flow Rate FiO2 07/03/17 08:23 Room Air I&O- Last 24 Hours up to 6 AM 07/03/17 06:00 Intake Total 1910 ml Output Total 0 ml Balance 1910 ml Laboratory Data 24H LABS Laboratory Tests 2 07/03/17 06:25: Phosphorus Level 0.9L CBC/BMP Laboratory Tests 07/02/17 17:20 07/03/17 09:55 Red Blood Count 2.67 L, Mean Corpuscular Volume 96.1 #H, Mean Corpuscular Hemoglobin 34.0 H, Mean Corpuscular Hemoglobin Concent 35.4, Red Cell Distribution Width 17.6 H Microbiology Microbiology 06/26/17 Blood Culture - Final, Complete NO GROWTH AFTER 5 DAYS 06/26/17 Blood Culture - Final, Complete NO GROWTH AFTER 5 DAYS 07/02/17 Stool Occult Blood (JUSTA) - Final, Complete 06/25/17 Gastrointestinal Tract Panel (PCR) - Final, Complete Clostridium Difficile A/B Enteropathogenic E.coli 06/27/17 Urine Culture - Final, Complete JAYY SCHMIDT MD Jul 03, 2017 12:07
[2017-07-03] MEDS: ACETAMINOPHEN TAB 650MG DOSE (2X325MG) PO PRN (13:48)
[2017-07-03 14:00] VITALS: BP 123/87
[2017-07-03 17:55] LABS: ANION GAP 12 MEQ/L (8-16); BLOOD UREA NITROGEN 14 MG/DL (7-18); CALCIUM LEVEL 6.4 MG/DL (8.5-10.1); CARBON DIOXIDE LEVEL 19 MEQ/L (21-32); CHLORIDE LEVEL 112 MEQ/L (98-107); CREATININE FOR GFR 0.51 MG/DL (0.70-1.30); GLOMERULAR FILTRATION RATE > 60.0 (>56); GLUCOSE, FASTING 95 MG/DL (70-105); MAGNESIUM LEVEL 1.5 MG/DL (1.8-2.4); POTASSIUM SERUM 3.3 MEQ/L (3.5-5.1); SODIUM LEVEL 143 MEQ/L (136-145)
[2017-07-03 18:42] LABS: PHOSPHORUS LEVEL 2.8 MG/DL (2.5-4.9)
[2017-07-03 22:00] VITALS: BP 111/70
[2017-07-04] MEDS: VANCOMYCIN ORAL SOL 250MG/5ML ORAL SYRINGE PO SCH ×3 (05:35→18:31)
[2017-07-04] MEDS: ATRIPLA TAB PO SCH (05:35)
[2017-07-04] MEDS: LEVOTHYROXINE 37.5MCG PER 1/2TAB (0.0375MG) PO SCH (05:35)
[2017-07-04] MEDS: SODIUM CHLORIDE 0.9% INJ 10 ML SYR IV SCH ×2 (05:36→20:15)
[2017-07-04 05:57] LABS: MEAN CORPUSCULAR HEMOGLOBIN 33.8 pg (27.0-33.0); MEAN CORPUSCULAR HGB CONC 34.5 g/dl (32.0-36.5); MEAN CORPUSCULAR VOLUME 97.8 fl (80.0-96.0); RED CELL DISTRIBUTION WIDTH 18.1 % (11.5-14.5)
[2017-07-04 06:00] VITALS: BP 110/70
[2017-07-04 06:25] LABS: ANION GAP 11 MEQ/L (8-16); BLOOD UREA NITROGEN 9 MG/DL (7-18); CALCIUM LEVEL 6.5 MG/DL (8.5-10.1); CARBON DIOXIDE LEVEL 18 MEQ/L (21-32); CHLORIDE LEVEL 114 MEQ/L (98-107); CREATININE FOR GFR 0.47 MG/DL (0.70-1.30); GLOMERULAR FILTRATION RATE > 60.0 (>56); GLUCOSE, FASTING 73 MG/DL (70-105); PHOSPHORUS LEVEL 1.8 MG/DL (2.5-4.9); SODIUM LEVEL 143 MEQ/L (136-145)
[2017-07-04 08:51] LABS: MAGNESIUM LEVEL 1.5 MG/DL (1.8-2.4)
[2017-07-04] MEDS: FERROUS SULFATE 325MG TAB PO SCH ×2 (09:34→20:32)
[2017-07-04] MEDS: LACTOBACILLUS ACIDOPHILUS CAP (BACID) PO SCH ×3 (09:34→18:31)
[2017-07-04] MEDS: MULTIVITAMINS/MINERALS THERAP 1 TAB PO SCH (09:34)
[2017-07-04] MEDS: FOLIC ACID 1 MG TAB PO SCH (09:35)
[2017-07-04] MEDS: POTASSIUM CHLORIDE 10 MEQ SR TABLET PO SCH ×2 (09:35→20:32)
[2017-07-04] MEDS: THIAMINE 100 MG TAB PO SCH (09:36)
[2017-07-04] MEDS: NYSTATIN 100,000 UNITS/GM TOPICAL PWD 15 GM TOP SCH ×2 (09:39→20:32)
[2017-07-04] MEDS: K-PHOS NEUTRAL 250MG TABLET (SOD.PHOSPHATE/POT.PHOSPHATE) PO SCH ×3 (09:41→20:32)
--- NOTE | 2017-07-04 12:07 | IPNPDOC ---
Subjective Date Seen The patient was seen on 07/04/17. Subjective Chief Complaint/HPI Patient seen and examined at the bedside. States that his appetite is still not great but denies any abdominal pain or other acute complaints. Objective Physical Examination General Exam: Positive: Alert, Cooperative, No Acute Distress, Other ( cachectic appearing, with bitemporal wasting noted) ENT Exam: Positive: Mucous membr. moist/pink Neck Exam: Negative: JVD Chest Exam: Positive: Clear to auscultation, Normal air movement Heart Exam: Positive: Rate Normal, Normal S1, Normal S2 Abdomen Exam: Positive: Soft, Negative: Tenderness Extremity Exam: Negative: Tenderness, Swelling Assessment /Plan Plan/VTE VTE Prophylaxis Ordered?: Yes Plan/Urinary Catheter Reason for insertion/continuin: Critical Pt monitoring Plan Clostridium difficile colitis Continue on oral vancomycin as per ID (Started on 06/26/17), IV Flagyl d/c'd. Will complete 10 day course. White blood cell count has normalized, the patient has remained afebrile Patient reports that abdominal pain has resolved, tolerating PO diet, and decrease in frequency of stools We will continue to monitor the patient's progress Infectious diseases on board Macrocytic Anemia s/p 2 Units of PRBC's on 07/02/17 Hgb stable this AM No overt signs of bleeding noted Fecal stool for occult blood negative Peripheral smear suggestive of multifactorial etiology Iron studies indicative of underlying iron deficiency--Iron Supplementation ordered Possible Element of Dilution from IVF Hydration Cont to monitor H&H GI panel also positive for Enteropathogenic Escherichia coli Continue supportive medical management as delineated above Non-Anion Gap Metabolic Acidosis 2/2 Above (Diarrhea) We will cont to monitor the patient's labs, and provide supportive medical treatment as outlined above T12 and L1 Compression Fracture No acute neurological findings noted Orthopedic Service on board--MRI with STIR protocol of the Thoracic and Lumbar Spine results noted--Patient not a surgical candidate as per Dr. Heike Gavin and W.B.A.T. with PT ordered Appreciate Spinal Surgeon input Thrombocytopenia possibly 2/2 C. Diff Infection Platelet count trending upward No active signs of overt bleeding noted Heparin products have been discontinued Heparin induced platelet antibody noted to be 0.9---however I do not suspect that the patient currently has HIT. His 4 T-Score was of Low Probability (2) to begin with, and his clinical presentation does not match with that of HIT. The patient's thrombocytopenia can be much better explained by the patient's acute C. Diff infection, and chronic alcohol abuse with poor nutritional status. At this time, we will continue to monitor his platelet count as it appears to be upward trending. Acute kidney injury 2/2 C. Diff Diarrhea, decreased PO Intake, resolved Initial serum creatinine initially noted to be 2.8 (Baseline Cr 0.5-0.7) Serum Cr back to baseline limits Continue IV fluid hydration Nephrotoxins held We will cont to monitor serum Cr Hypernatremia likely 2/2 Decreased PO Intake, resolved s/p IVF Hydration Encouraged PO Water Intake We will monitor serum Na levels Hypokalemia, Hypomagnesemia, Hypocalcemia, Hypophosphatemia Likely 2/2 Poor PO Intake, Diarrhea, and Alcohol abuse We will replete these lytes as indicated Dietary consulted History of AIDS Follows with Dr. Marquez of ID as outpatient Cont home meds ID consulted here History of alcohol abuse Thiamine, folic acid, multivitamins ordered Serax when necessary Hypothyroidism Continue levothyroxine Severe protein calorie nutrition BMI 12 By mouth intake encouraged We will add ensure 3 times a day Dietary consulted DVT prophylaxis SCDs (thrombocytopenia) Prognosis: Long-term prognosis poor Disposition-physical therapy on board for functional optimization, home versus short-term rehabilitation. PFS also on board. VS, I&O, 24H, Fishbone Vital Signs/I&O Vital Signs Date Time Temp Pulse Resp B/P (MAP) Pulse Ox O2 Delivery O2 Flow Rate FiO2 07/04/17 06:00 96.9 84 18 110/70 (83) 97 07/03/17 14:00 Room Air I&O- Last 24 Hours up to 6 AM 07/04/17 06:00 Intake Total 2090 ml Output Total 0 ml Balance 2090 ml Laboratory Data 24H LABS Laboratory Tests 2 07/03/17 17:21: Anion Gap 12, Glomerular Filtration Rate > 60.0, Blood Urea Nitrogen 14, Creatinine 0.51L, Sodium Level 143, Potassium Level 3.3L, Chloride Level 112H, Carbon Dioxide Level 19L, Calcium Level 6.4L, Phosphorus Level 2.8#, Magnesium Level 1.5L 07/04/17 05:45: Anion Gap 11, Glomerular Filtration Rate > 60.0, Blood Urea Nitrogen 9, Creatinine 0.47L, Sodium Level 143, Potassium Level 3.0L, Chloride Level 114H, Carbon Dioxide Level 18L, Calcium Level 6.5L, Phosphorus Level 1.8#L, Magnesium Level 1.5L CBC/BMP Laboratory Tests 07/03/17 17:21 Calcium Level 6.4 L 07/04/17 05:45 Calcium Level 6.5 L, Red Blood Count 2.98 L, Mean Corpuscular Volume 97.8 H, Mean Corpuscular Hemoglobin 33.8 H, Mean Corpuscular Hemoglobin Concent 34.5, Red Cell Distribution Width 18.1 H Microbiology Microbiology 06/26/17 Blood Culture - Final, Complete NO GROWTH AFTER 5 DAYS 06/26/17 Blood Culture - Final, Complete NO GROWTH AFTER 5 DAYS 07/02/17 Stool Occult Blood (JUSTA) - Final, Complete 06/25/17 Gastrointestinal Tract Panel (PCR) - Final, Complete Clostridium Difficile A/B Enteropathogenic E.coli 06/27/17 Urine Culture - Final, Complete JAYY SCHMIDT MD Jul 04, 2017 12:07
[2017-07-04] MEDS ORDERED: CALCIUM GLUCONATE 1,000 MG in D5W MINI-BAG PLUS 100 ML IV ONE (12:15)
[2017-07-04] MEDS: MAG SULF 1GM/100ML (MAG RUN) 1 GM in APPROPRIATE DILUENT 1 EA IV SCH ×2 (14:20→15:45)
--- NOTE | 2017-07-04 17:24 | IPN ---
DATE: 07/04/2017 Valentino is grumpy and more irritable. I gave him his Ensure. He screamed at me for putting the Ensure on ice . He states still has diarrhea, but no nausea or vomiting. No abdominal pain. T-max yesterday was 99.7, today 96.9. Pulse 84, respirations 18, blood pressure 110/70, O2 saturation 97% on room air. Heart: Normal S1, S2. No murmurs. Lungs: Clear. No wheezes, rales or rhonchi. Abdomen: Soft, nontender. Extremities: No edema. He is still in pull-ups because of incontinence. LABS: White count is 9, hemoglobin 10.1. Hematocrit 29.2, platelets 168, which have markedly improved. They had been down to 53. Sodium 143, potassium 3, chloride 114. Bicarbonate 18, BUN 9, creatinine 0.47, calcium 6.5, phosphorous 1.8, magnesium 1.5. IMPRESSION: 1. Diarrhea due to C. difficile colitis and possible enteropathogenic E. Coli. Currently on by mouth vancomycin and probiotics. Diarrhea has improved. 2. Acquired immunodeficiency syndrome (AIDS), stable. 3. History of alcohol and tobacco abuse, stable. 4. Hypokalemia acidosis, all related to diarrhea. 5. Anemia. The patient has received two units of packed red blood cells and currently on iron sulfate. 6. L1 compression fracture. The patient has a back brace but he states that the brace is too big for him and he needs an adjustment. PLAN: Continue same management. Encourage ambulation. Patient needs housing as he lives in [facility] room that he rents [facility]
[2017-07-04] MEDS ORDERED: SODIUM CHLORIDE 0.9% INJ 10 ML SYR IV PRN (20:00)
[2017-07-04] MEDS: CALCIUM CARBONATE 500 MG CHEW U/D PO PRN (20:32)
[2017-07-04] MEDS: ONDANSETRON 4MG/2ML VIAL (J2405) IV PRN (20:43)
[2017-07-04 22:00] VITALS: BP 132/78
[2017-07-05] MEDS: VANCOMYCIN ORAL SOL 250MG/5ML ORAL SYRINGE PO SCH ×4 (00:58→17:52)
[2017-07-05] MEDS: SODIUM CHLORIDE 0.9% INJ 10 ML SYR IV SCH ×2 (05:30→18:00)
[2017-07-05 05:42] LABS: MEAN CORPUSCULAR HEMOGLOBIN 34.2 pg (27.0-33.0); MEAN CORPUSCULAR HGB CONC 34.1 g/dl (32.0-36.5); MEAN CORPUSCULAR VOLUME 100.2 fl (80.0-96.0); RED CELL DISTRIBUTION WIDTH 18.7 % (11.5-14.5); WHITE BLOOD COUNT 8.8 K/mm3 (4.0-10.0)
[2017-07-05 06:00] VITALS: BP 122/64
[2017-07-05 06:20] LABS: ANION GAP 9 MEQ/L (8-16); BLOOD UREA NITROGEN 11 MG/DL (7-18); CALCIUM LEVEL 6.8 MG/DL (8.5-10.1); CARBON DIOXIDE LEVEL 19 MEQ/L (21-32); CHLORIDE LEVEL 116 MEQ/L (98-107); CREATININE FOR GFR 0.41 MG/DL (0.70-1.30); GLOMERULAR FILTRATION RATE > 60.0 (>56); GLUCOSE, FASTING 81 MG/DL (70-105); PHOSPHORUS LEVEL 1.3 MG/DL (2.5-4.9); POTASSIUM SERUM 4.1 MEQ/L (3.5-5.1); SODIUM LEVEL 144 MEQ/L (136-145)
[2017-07-05] MEDS: ATRIPLA TAB PO SCH (06:20)
[2017-07-05] MEDS: LEVOTHYROXINE 37.5MCG PER 1/2TAB (0.0375MG) PO SCH (06:20)
[2017-07-05] MEDS: NYSTATIN 100,000 UNITS/GM TOPICAL PWD 15 GM TOP SCH ×2 (09:00→20:26)
[2017-07-05] MEDS: MULTIVITAMINS/MINERALS THERAP 1 TAB PO SCH (09:42)
[2017-07-05] MEDS: THIAMINE 100 MG TAB PO SCH (09:42)
[2017-07-05] MEDS: FERROUS SULFATE 325MG TAB PO SCH ×2 (09:42→19:54)
[2017-07-05] MEDS: LACTOBACILLUS ACIDOPHILUS CAP (BACID) PO SCH ×3 (09:42→17:51)
[2017-07-05] MEDS: FOLIC ACID 1 MG TAB PO SCH (09:42)
[2017-07-05 14:00] VITALS: BP 130/65
[2017-07-05] MEDS: K-PHOS ORIGINAL (POT.ACID PHOSPHATE) 500MG TAB PO SCH ×2 (14:36→19:54)
--- NOTE | 2017-07-05 17:03 | IPN ---
DATE: 07/05/2017 SUBJECTIVE: The patient is seen and examined in the room today. The patient continued to have frequent loose stools. Yesterday, the patient had seven bowel movements total. The patient is not performing well with physical therapy. The patient stated there is no worsening of his condition. No complaints. VITAL SIGNS: Temperature 96.9, pulse is 100, respirations 18, blood pressure is 122/64, pulse oximetry is 96% in room air. GENERAL: No sign of acute distress. The patient is alert and awake. HEENT: Normocephalic, atraumatic. CARDIOVASCULAR: Positive S1, S2, regular rate. LUNGS: Clear to auscultation bilaterally. ABDOMEN: Soft. Bowel sounds present. EXTREMITIES: No edema, no cyanosis. LABORATORY DATA: WBC 8.8, hemoglobin 9, hematocrit 26.3, platelet count is 177. Sodium is 144, potassium 4.1, chloride is 116, carbon dioxide is 19, BUN 11, creatinine 0.41, GFR greater than 60, fasting glucose is 81, calcium is 6.8, phosphorus 1.3, magnesium 2. ASSESSMENT AND PLAN: 1. Clostridium difficile colitis. Patient continues on oral vancomycin. Will complete a 10-day course of oral vancomycin. Infectious disease, Dr. Marquez, has been consulted. The patient continues to have loose stools. Patient tolerating oral diet. The patient is also taking Bacid. 2. Macrocytic anemia. The patient had two packed red blood cell transfusion. Hemoccult was performed on 07/02/2017; it was negative. The patient continues to have fluctuation of hemoglobin and hematocrit. Will continue to monitor. Most recent hemoglobin is 9, hematocrit 26.3. Continue following hemoglobin and hematocrit. 3. Enteropathogenic Escherichia (E) coli. Continue supportive medical management. 4. Non-anion gap metabolic acidosis secondary to frequent diarrhea from Clostridium difficile. Continue supportive care. 5. T12 and L1 compression fracture. Orthopedic service has been consulted. The patient is not a surgical candidate per Dr. Burroughs. The patient has a [place] brace and the patient is currently following with physical therapy. 6. History of AIDS. Will continue with HIV medications. Infectious disease, Dr. Marquez, has been consulted. 7. History of alcohol abuse. No sign of withdrawal. The patient is on Serax as needed. Will continue with folic acid, thiamine and multivitamin. 8. Hypothyroidism, on Synthroid. 9. Severe protein-calorie malnutrition. Encourage increased oral intake. Patient also supplemented with Ensure three times a day. 10. History of acute kidney injury secondary to prerenal azotemia. Patient has been on fluid support. Acute kidney injury has resolved. 11. Hypophosphatemia. The patient has intermittent phosphate supplements. There was one incident patient's phosphorus level dropped to 0.9 on 07/03/2017. Today, the patient has a phosphorus level of 1.3, still below the normal range. Will start with oral supplement, and if the patient continues to decrease with the phosphorus level, we may consider the IV formulations. 12. Hypokalemia. The patient is receiving K-Phos. We will follow. Hypokalemia secondary to frequent bowel movements from Clostridium difficile. 13. Deep vein thrombosis (DVT), on thromboembolism deterrents (TEDs), sequential compression device. MTDD
[2017-07-05] MEDS: ONDANSETRON 4MG/2ML VIAL (J2405) IV PRN (19:51)
[2017-07-05 22:00] VITALS: BP 134/83
[2017-07-06] MEDS: VANCOMYCIN ORAL SOL 250MG/5ML ORAL SYRINGE PO SCH ×2 (00:31→17:56)
[2017-07-06] MEDS: ATRIPLA TAB PO SCH (05:53)
[2017-07-06] MEDS: SODIUM CHLORIDE 0.9% INJ 10 ML SYR IV SCH ×2 (05:54→17:56)
[2017-07-06] MEDS: LEVOTHYROXINE 37.5MCG PER 1/2TAB (0.0375MG) PO SCH (05:54)
[2017-07-06 06:00] VITALS: BP 110/58
[2017-07-06 06:29] LABS: MEAN CORPUSCULAR HEMOGLOBIN 33.8 pg (27.0-33.0); MEAN CORPUSCULAR HGB CONC 33.7 g/dl (32.0-36.5); MEAN CORPUSCULAR VOLUME 100.1 fl (80.0-96.0); RED CELL DISTRIBUTION WIDTH 18.4 % (11.5-14.5); WHITE BLOOD COUNT 7.3 K/mm3 (4.0-10.0)
[2017-07-06 06:54] LABS: ANION GAP 7 MEQ/L (8-16); BLOOD UREA NITROGEN 12 MG/DL (7-18); CALCIUM LEVEL 7.2 MG/DL (8.5-10.1); CARBON DIOXIDE LEVEL 19 MEQ/L (21-32); CHLORIDE LEVEL 115 MEQ/L (98-107); CREATININE FOR GFR 0.44 MG/DL (0.70-1.30); GLOMERULAR FILTRATION RATE > 60.0 (>56); GLUCOSE, FASTING 86 MG/DL (70-105); MAGNESIUM LEVEL 1.7 MG/DL (1.8-2.4); PHOSPHORUS LEVEL 1.7 MG/DL (2.5-4.9); SODIUM LEVEL 141 MEQ/L (136-145)
[2017-07-06] MEDS: THIAMINE 100 MG TAB PO SCH (09:05)
[2017-07-06] MEDS: K-PHOS ORIGINAL (POT.ACID PHOSPHATE) 500MG TAB PO SCH ×2 (09:05→21:48)
[2017-07-06] MEDS: MULTIVITAMINS/MINERALS THERAP 1 TAB PO SCH (09:06)
[2017-07-06] MEDS: FOLIC ACID 1 MG TAB PO SCH (09:06)
[2017-07-06] MEDS: LACTOBACILLUS ACIDOPHILUS CAP (BACID) PO SCH ×3 (09:06→17:56)
[2017-07-06] MEDS: FERROUS SULFATE 325MG TAB PO SCH ×2 (09:06→21:48)
[2017-07-06] MEDS: MAGNESIUM OXIDE 400 MG TAB (MAG-OX) PO SCH ×2 (09:06→21:50)
[2017-07-06] MEDS: NYSTATIN 100,000 UNITS/GM TOPICAL PWD 15 GM TOP SCH ×2 (09:07→21:50)
[2017-07-06 14:00] VITALS: BP 124/76
--- NOTE | 2017-07-06 16:33 | IPN ---
DATE: 07/06/2017 SUBJECTIVE: The patient is seen and examined in the room today. The patient appeared to be more alert and awake. The patient is also more oriented. I did have a chance to talk to the patient's sister, Mrs. Fauzia Greene, who showed concern for the patient's living situation. The patient denies any acute complaints. Still has frequent bowel movements. The patient denies any thoughts or plans of hurting himself. OBJECTIVE: VITAL SIGNS: Temperature 98.1, pulse is 102, respirations 17, blood pressure is 110/58, pulse oximetry is 98% on room air. GENERAL: No sign of acute distress. Alert and awake. Knows about the name of the place and the year. HEENT: Normocephalic, atraumatic. CARDIOVASCULAR: Positive S1, S2, regular rate. LUNGS: Clear to auscultation bilaterally. ABDOMEN: Soft. Nontender. EXTREMITIES: No edema. No cyanosis. LABORATORY DATA: WBC 7.3, hemoglobin 9.3, hematocrit 27.2, platelet count is 200. Sodium is 141, potassium 4, chloride is 116, carbon dioxide is 19, BUN 12, creatinine 0.44, GFR greater than 60, fasting glucose is 86, calcium is 7.2, phosphorus 1.7, magnesium 1.7. ASSESSMENT AND PLAN: 1. Clostridium difficile colitis. Patient continues on oral vancomycin 250 mg every 6 hours. Infectious disease specialist, Dr. Marquez, has been consulted. Appreciate her assistance. The patient had five bowel movements yesterday. The patient is on Bacid. 2. History of AIDS. The patient is currently on his HIV medications. Dr. Marquez has been assisting on the case. 3. Enteropathogenic Escherichia (E) coli. Continue supportive medical management. 4. Microcytic anemia. The patient had two packed red blood cell transfusions on 07/02/2017. Hemoccult is negative. Hemoglobin and hematocrit have remained stable. 5. Non anion gap metabolic acidosis secondary to diarrhea from C difficile. Continue supportive care. 6. T12 and L1 compression fracture. Orthopedic service was consulted previously and stated that the patient is not a surgical candidate. The patient has a [place] brace. The patient is following with physical therapy. 6. History of alcohol abuse. No sign of withdrawal. The patient is on Serax as needed. Continue with folic acid, thiamine and multivitamin. 7. Hypothyroidism, on Synthroid. 8. Severe protein-calorie malnutrition. Encourage increased oral intake as tolerated. Supplemented with Ensure three times a day. 9. History of acute kidney injury secondary to prerenal azotemia. Acute kidney injury has resolved. 10. Hypophosphatemia. Previously the patient's phosphate level was significantly low. IV phosphate formulation had to be given and he was switched to oral K phos. Continue to monitor level. 11 . Hypomagnesemia. Continue to supplement as needed. 12. Poor home living situation. The patient had a rented place, which was very filthy. However, due to his history, the patient has limitation for getting assistance. Due to the patient's history, the patient's sister does not feel comfortable letting her brother live in the house where she has a young grandson. Continue to follow with social sciences department chair to see if there are any other options that we can provide to the patient. 13. Deep vein thrombosis (DVT), on thromboembolic compression stockings (TEDS), sequential compression device (SCD).
[2017-07-06] MEDS: traMADol 50 MG TAB PO PRN (21:49)
[2017-07-06 22:00] VITALS: BP 134/78
[2017-07-07 06:00] VITALS: BP 132/82
[2017-07-07] MEDS: LEVOTHYROXINE 37.5MCG PER 1/2TAB (0.0375MG) PO SCH (06:05)
[2017-07-07] MEDS: ATRIPLA TAB PO SCH (06:05)
[2017-07-07] MEDS: VANCOMYCIN ORAL SOL 250MG/5ML ORAL SYRINGE PO SCH ×5 (06:06→23:25)
[2017-07-07] MEDS: SODIUM CHLORIDE 0.9% INJ 10 ML SYR IV SCH ×2 (06:06→18:00)
[2017-07-07 06:39] LABS: MEAN CORPUSCULAR HEMOGLOBIN 34.1 pg (27.0-33.0); MEAN CORPUSCULAR HGB CONC 33.9 g/dl (32.0-36.5); MEAN CORPUSCULAR VOLUME 100.8 fl (80.0-96.0); RED CELL DISTRIBUTION WIDTH 17.9 % (11.5-14.5); WHITE BLOOD COUNT 5.7 K/mm3 (4.0-10.0)
[2017-07-07 07:08] LABS: ANION GAP 10 MEQ/L (8-16); BLOOD UREA NITROGEN 10 MG/DL (7-18); CALCIUM LEVEL 7.7 MG/DL (8.5-10.1); CARBON DIOXIDE LEVEL 17 MEQ/L (21-32); CHLORIDE LEVEL 115 MEQ/L (98-107); CREATININE FOR GFR 0.39 MG/DL (0.70-1.30); GLOMERULAR FILTRATION RATE > 60.0 (>56); GLUCOSE, FASTING 79 MG/DL (70-105); MAGNESIUM LEVEL 1.7 MG/DL (1.8-2.4); PHOSPHORUS LEVEL 1.3 MG/DL (2.5-4.9); POTASSIUM SERUM 3.5 MEQ/L (3.5-5.1); SODIUM LEVEL 142 MEQ/L (136-145)
[2017-07-07] MEDS: K-PHOS ORIGINAL (POT.ACID PHOSPHATE) 500MG TAB PO SCH ×2 (08:54→20:46)
[2017-07-07] MEDS: NYSTATIN 100,000 UNITS/GM TOPICAL PWD 15 GM TOP SCH ×2 (08:55→20:46)
[2017-07-07] MEDS: FOLIC ACID 1 MG TAB PO SCH (08:55)
[2017-07-07] MEDS: MULTIVITAMINS/MINERALS THERAP 1 TAB PO SCH (08:55)
[2017-07-07] MEDS: LACTOBACILLUS ACIDOPHILUS CAP (BACID) PO SCH ×3 (08:55→18:00)
[2017-07-07] MEDS: THIAMINE 100 MG TAB PO SCH (08:55)
[2017-07-07] MEDS: MAGNESIUM OXIDE 400 MG TAB (MAG-OX) PO SCH ×2 (08:55→20:46)
[2017-07-07] MEDS: FERROUS SULFATE 325MG TAB PO SCH ×2 (08:55→20:45)
[2017-07-07 14:00] VITALS: BP 131/86
[2017-07-07 22:00] VITALS: BP 132/74
[2017-07-08] MEDS: ATRIPLA TAB PO SCH (05:37)
[2017-07-08] MEDS: LEVOTHYROXINE 37.5MCG PER 1/2TAB (0.0375MG) PO SCH (05:37)
[2017-07-08] MEDS: SODIUM CHLORIDE 0.9% INJ 10 ML SYR IV SCH ×2 (05:37→18:30)
[2017-07-08] MEDS: VANCOMYCIN ORAL SOL 250MG/5ML ORAL SYRINGE PO SCH ×3 (05:37→18:30)
[2017-07-08 05:39] VITALS: BP 128/78
[2017-07-08 06:03] LABS: MEAN CORPUSCULAR HEMOGLOBIN 33.9 pg (27.0-33.0); MEAN CORPUSCULAR HGB CONC 33.6 g/dl (32.0-36.5); MEAN CORPUSCULAR VOLUME 100.9 fl (80.0-96.0); RED CELL DISTRIBUTION WIDTH 18.3 % (11.5-14.5); WHITE BLOOD COUNT 6.6 K/mm3 (4.0-10.0)
[2017-07-08 06:22] LABS: ANION GAP 7 MEQ/L (8-16); BLOOD UREA NITROGEN 13 MG/DL (7-18); CALCIUM LEVEL 7.8 MG/DL (8.5-10.1); CARBON DIOXIDE LEVEL 21 MEQ/L (21-32); CHLORIDE LEVEL 113 MEQ/L (98-107); CREATININE FOR GFR 0.43 MG/DL (0.70-1.30); GLOMERULAR FILTRATION RATE > 60.0 (>56); GLUCOSE, FASTING 81 MG/DL (70-105); PHOSPHORUS LEVEL 1.1 MG/DL (2.5-4.9); POTASSIUM SERUM 3.5 MEQ/L (3.5-5.1); SODIUM LEVEL 141 MEQ/L (136-145)
[2017-07-08] MEDS: FOLIC ACID 1 MG TAB PO SCH (08:19)
[2017-07-08] MEDS: LACTOBACILLUS ACIDOPHILUS CAP (BACID) PO SCH ×3 (08:19→18:29)
[2017-07-08] MEDS: MULTIVITAMINS/MINERALS THERAP 1 TAB PO SCH (08:19)
[2017-07-08] MEDS: THIAMINE 100 MG TAB PO SCH (08:19)
[2017-07-08] MEDS: K-PHOS ORIGINAL (POT.ACID PHOSPHATE) 500MG TAB PO SCH ×2 (08:19→22:03)
[2017-07-08] MEDS: FERROUS SULFATE 325MG TAB PO SCH ×2 (08:19→22:03)
[2017-07-08] MEDS: MAGNESIUM OXIDE 400 MG TAB (MAG-OX) PO SCH ×2 (08:20→22:03)
[2017-07-08] MEDS: NYSTATIN 100,000 UNITS/GM TOPICAL PWD 15 GM TOP SCH ×2 (08:20→22:03)
[2017-07-08 14:00] VITALS: BP 125/73
--- NOTE | 2017-07-08 16:47 | IPN ---
DATE: 07/08/2017 SUBJECTIVE: The patient is seen and examined in the room today. The patient is actually sitting in a chair watching TV without any sign of acute distress. However, the patient still complains about multiple loose stools. When I asked the patient how many bowel movements he had, he said, "I don't remember; I did not count." Per our medical record, the patient had at least five loose stools in the past 24 hours. No events reported overnight. OBJECTIVE: VITAL SIGNS: Temperature is 97.5, pulse is 94, respirations 16, blood pressure 128/78, pulse oximetry 97% on room air. GENERAL: No sign of acute distress. Alert and oriented times three. HEENT: Normocephalic, atraumatic. Extraocular motor grossly intact. CARDIOVASCULAR: Positive S1, S2. Regular rate. LUNGS: Clear to auscultation bilaterally. ABDOMEN: Soft, nontender, nondistended. Bowel sounds present. EXTREMITIES: No edema. No sign of cyanosis. LABORATORY DATA: WBC is 6.6, hemoglobin 8.6, hematocrit is 25.5, platelet count 220. Sodium is 141, potassium 3.5, chloride 113, carbon dioxide 21, BUN 13, creatinine 0.43, GFR greater than 60, fasting glucose 81, calcium 7.8, phosphorus 1.1, magnesium two. ASSESSMENT AND PLAN: 1. Clostridium (C.) difficile colitis. The patient continues to have loose stool. The patient has been on oral vancomycin. Infectious disease specialist, Dr. Marquez, has been consulted. The patient does show some signs of decreased bowel movement frequency. The patient is currently on Bacid. 2. History of AIDS. The patient is currently continues on his HIV medications. Dr. Marquez has been assisting on the case. 3. Enteropathic Escherichia (E.) coli. Continue supportive management. Still has frequent bowel movements. The patient also has C. difficile colitis. 4. Microcytic anemia. The patient had two packed red blood cell transfusions on 07/02/2017. Hemoccult was negative. Today's morning labs show there is a significant decrease in hemoglobin and hematocrit. Hemoglobin dropped from 9.5 to 8.6. Hematocrit dropped from 28.2 to 25.5. Repeated labs in three hours show there is spontaneous recovery of the hemoglobin and hematocrit. Repeated hemoglobin is 9.6, and hematocrit 28.8. We will continue to monitor for any possible sign of acute bleeding. 5. History of [id number] acidosis secondary to GI loss from diarrhea from C. difficile and enteropathic E. coli, completely resolved. Continue supportive care. 6. T12-L1 compression fracture. Orthopedic service was consulted previously. The patient is not a surgical candidate. The patient continues to have a brace on. Continue with physical therapy. 7. History of alcohol abuse. No sign of withdrawal. Has Serax as needed. Continue on folic acid, thiamine, and multivitamin. 8. Hypothyroidism. On Synthroid. 9. Severe protein calorie malnutrition. Encourage oral intake. Supplement with Ensure three times a day. 10. History of acute kidney injury secondary to prerenal azotemia resolved. 11. Hypophosphatemia. The patient continues to have K-Phos. Continue to monitor level. The patient has significant hypophosphatemia requiring IV phosphate injections. 12. Hypomagnesemia. Continue to monitor. 13. Poor home living situation. The patient had a very filthy rented place, and due to patient's history, the patient has limitation for getting assistance for placement. The patient's sister is not able to provide support due to the grandson in the house. Will continue to work with high school social science teacher to find possible placement for the patient. 14. Deep venous thrombosis (DVT) prophylaxis on thromboembolism deterrent stockings (TEDs) and sequential compression devices.
[2017-07-08 22:00] VITALS: BP 124/74
[2017-07-08] MEDS: ACETAMINOPHEN TAB 650MG DOSE (2X325MG) PO PRN (22:04)
[2017-07-09] MEDS: VANCOMYCIN ORAL SOL 250MG/5ML ORAL SYRINGE PO SCH ×4 (00:12→17:44)
[2017-07-09] MEDS: ATRIPLA TAB PO SCH (05:28)
[2017-07-09] MEDS: SODIUM CHLORIDE 0.9% INJ 10 ML SYR IV SCH ×2 (05:30→17:45)
[2017-07-09] MEDS: LEVOTHYROXINE 37.5MCG PER 1/2TAB (0.0375MG) PO SCH (05:30)
[2017-07-09 05:54] LABS: MEAN CORPUSCULAR HEMOGLOBIN 33.7 pg (27.0-33.0); MEAN CORPUSCULAR HGB CONC 33.4 g/dl (32.0-36.5); MEAN CORPUSCULAR VOLUME 100.8 fl (80.0-96.0); RED CELL DISTRIBUTION WIDTH 18.3 % (11.5-14.5); WHITE BLOOD COUNT 5.7 K/mm3 (4.0-10.0)
[2017-07-09 06:00] VITALS: BP 118/62
[2017-07-09 06:55] LABS: ANION GAP 9 MEQ/L (8-16); BLOOD UREA NITROGEN 15 MG/DL (7-18); CALCIUM LEVEL 7.5 MG/DL (8.5-10.1); CARBON DIOXIDE LEVEL 19 MEQ/L (21-32); CHLORIDE LEVEL 116 MEQ/L (98-107); CREATININE FOR GFR 0.42 MG/DL (0.70-1.30); GLOMERULAR FILTRATION RATE > 60.0 (>56); GLUCOSE, FASTING 78 MG/DL (70-105); PHOSPHORUS LEVEL 1.8 MG/DL (2.5-4.9); POTASSIUM SERUM 3.6 MEQ/L (3.5-5.1); SODIUM LEVEL 144 MEQ/L (136-145)
[2017-07-09] MEDS: K-PHOS ORIGINAL (POT.ACID PHOSPHATE) 500MG TAB PO SCH ×2 (09:17→21:02)
[2017-07-09] MEDS: MULTIVITAMINS/MINERALS THERAP 1 TAB PO SCH (09:17)
[2017-07-09] MEDS: FERROUS SULFATE 325MG TAB PO SCH ×2 (09:17→21:02)
[2017-07-09] MEDS: LACTOBACILLUS ACIDOPHILUS CAP (BACID) PO SCH ×3 (09:17→17:45)
[2017-07-09] MEDS: FOLIC ACID 1 MG TAB PO SCH (09:17)
[2017-07-09] MEDS: MAGNESIUM OXIDE 400 MG TAB (MAG-OX) PO SCH ×2 (09:17→21:02)
[2017-07-09] MEDS: THIAMINE 100 MG TAB PO SCH (09:17)
[2017-07-09] MEDS: NYSTATIN 100,000 UNITS/GM TOPICAL PWD 15 GM TOP SCH ×2 (09:18→21:03)
--- NOTE | 2017-07-09 13:13 | IPN ---
DATE: 07/09/2017 Valentino is much better. He is back in his happy mood, his friend is here visiting. He denies any nausea, vomiting, diarrhea, abdominal pain. His only complaint is some back pain. The patient has been out of bed walking. VITAL SIGNS: Temperature is 97.6, pulse 87, respirations 16, blood pressure 118/62, O2 sat 94% on room air. HEART: Normal S1-S2. No murmurs, rubs or gallops. LUNGS: Few exterior rhonchi bilaterally. ABDOMEN: Soft, nontender. EXTREMITIES: No edema. Purplish lesions from probable insect bites are resolving. BACK: Mild upper lumbar tenderness. LABORATORIES: White count is 5.7, hemoglobin 8.6, hematocrit 25.7, platelets 240. Sodium 144, potassium 3.6, chloride 116, bicarb 19, BUN 15, creatinine 0.42, glucose 78, calcium 7.59, phosphorus 1.8, magnesium 2, iron 23, TIBC 97, iron saturation 23, ferritin 209, folate 3.2, vitamin B12 1028. IMPRESSION: 1. C. difficile colitis on by mouth vancomycin. Improving. Still has three bowel movements a day that are loose. Continue vancomycin and probiotics. 2. AIDS on Atripla. 3. Anemia. The patient has received 2 units of packed red blood cells. Guaiac stools are negative. Patient probably would benefit from having a colonoscopy if he has never had one and probably will not have it as an outpatient. 4. T12-L1 compression fracture, stable doing well. 5. History of tobacco and alcohol abuse with no evidence of withdrawal, doing fairly well. PLAN: At this point, problem is with placement. Consider colonoscopy if anemia continues.
[2017-07-09 14:00] VITALS: BP 125/70
[2017-07-09] MEDS: CALCIUM CARBONATE 500 MG CHEW U/D PO PRN (17:45)
--- NOTE | 2017-07-09 18:53 | IPN ---
DATE: 07/09/2017 SUBJECTIVE: Patient seen and examined in the room today. Patient stated he has good oral intake; however, patient continues to have multiple loose stools. OBJECTIVE: VITAL SIGNS: Temperature is 97.6, pulse is 87, respiratory rate is 16, blood pressure is 118/62, pulse oximetry is 94% in room air. GENERAL: No sign of acute distress, alert and oriented times three. HEENT: Normocephalic, atraumatic. Extraocular motor grossly intact. CARDIOVASCULAR: Positive S1, S2, regular rate. LUNGS: Clear to auscultation bilaterally. ABDOMEN: Soft, nontender, nondistended. Bowel sounds present. EXTREMITIES: No edema. No sign of cyanosis. LABORATORY DATA: WBC is 5.7, hemoglobin 8.6, hematocrit is 25.7, platelet count 240. Sodium is 144, potassium 3.6, chloride is 116, carbon dioxide 19, BUN 15, creatinine 0.42, GFR greater than 60, fasting glucose 79, calcium 7.5, phosphorus 1.8, magnesium 2. ASSESSMENT AND PLAN: 1. Clostridium (C) difficile colitis. Patient continues to have multiple loose stools. Patient continues on by mouth vancomycin supplemented with Bacid. Infectious disease specialists, Dr. Marquez, has been assisting on the case. We appreciate her help for history of AIDS. Continue on HIV medications. 3. Enteropathic Escherichia (E) coli. Continue supportive management. Still has frequent bowel movements. Patient also has C. difficile colitis infection. 4. Microcytic anemia. Received 2 packs red blood cells transfusion on 07/02/2017. Hemoccult is negative. The hemoglobin and hematocrit have been fluctuating to some degree; however, there is no sign of acute bleeding. Continue to monitor. 5. History of non-anion gap acidosis secondary to gastrointestinal (GI) loss from diarrhea from C. Difficile and enteropathic E. coli. Gap has been closed. Continue to monitor. 6. T12-L1 compression fracture. Orthopedic service was consulted previously. Patient determined not to be a good surgical candidate. Recommend brace for the patient. Continue with physical therapy. 7. History of alcohol abuse. No sign of withdrawal. Serax as needed. Continue with folic acid, thiamine, and multivitamin. 8. Hypothyroidism, on Synthroid. 9. Severe protein calorie malnutrition. Encourage oral intake. Patient said he has been using Ensure at least two times a day. We will encourage increased consumption as tolerated. 10. History of acute kidney injury secondary to prerenal azotemia, resolved. 11. Hypophosphatemia. Continues to have low phosphorus level. Patient is on K-Phos. Patient had significant phosphatemia before, requiring intravenous (IV) phosphate injections. 12. Hypomagnesemia. Continue to monitor. 13. Poor home living situation. Due to the patient's history, it has been very difficult to find a federal program for the patient. Patient's sister has a grandson at home, and patient's sister will not be able to bring the patient home. 13. Deep vein thrombosis (DVT) prophylaxis. On thromboembolic deterrents (TEDs) and sequential compression devices.
[2017-07-09 22:00] VITALS: BP 123/80
[2017-07-10] MEDS: VANCOMYCIN ORAL SOL 250MG/5ML ORAL SYRINGE PO SCH ×4 (00:33→17:50)
[2017-07-10] MEDS: ATRIPLA TAB PO SCH (05:41)
[2017-07-10] MEDS: LEVOTHYROXINE 37.5MCG PER 1/2TAB (0.0375MG) PO SCH (05:41)
[2017-07-10] MEDS: SODIUM CHLORIDE 0.9% INJ 10 ML SYR IV SCH ×2 (05:42→17:50)
[2017-07-10 06:00] VITALS: BP 111/70
[2017-07-10 06:07] LABS: MEAN CORPUSCULAR HEMOGLOBIN 34.1 pg (27.0-33.0); MEAN CORPUSCULAR HGB CONC 33.2 g/dl (32.0-36.5); MEAN CORPUSCULAR VOLUME 102.9 fl (80.0-96.0); RED CELL DISTRIBUTION WIDTH 18.6 % (11.5-14.5); WHITE BLOOD COUNT 6.2 K/mm3 (4.0-10.0)
[2017-07-10 06:35] LABS: ANION GAP 9 MEQ/L (8-16); BLOOD UREA NITROGEN 15 MG/DL (7-18); CALCIUM LEVEL 7.9 MG/DL (8.5-10.1); CARBON DIOXIDE LEVEL 19 MEQ/L (21-32); CHLORIDE LEVEL 116 MEQ/L (98-107); GLOMERULAR FILTRATION RATE > 60.0 (>56); GLUCOSE, FASTING 80 MG/DL (70-105); POTASSIUM SERUM 3.8 MEQ/L (3.5-5.1); SODIUM LEVEL 144 MEQ/L (136-145)
[2017-07-10] MEDS: LACTOBACILLUS ACIDOPHILUS CAP (BACID) PO SCH ×3 (07:56→17:50)
[2017-07-10] MEDS: MAGNESIUM OXIDE 400 MG TAB (MAG-OX) PO SCH ×2 (08:00→21:13)
[2017-07-10] MEDS: FERROUS SULFATE 325MG TAB PO SCH ×2 (08:00→21:14)
[2017-07-10] MEDS: THIAMINE 100 MG TAB PO SCH (08:00)
[2017-07-10] MEDS: FOLIC ACID 1 MG TAB PO SCH (08:00)
[2017-07-10] MEDS: MULTIVITAMINS/MINERALS THERAP 1 TAB PO SCH (08:00)
[2017-07-10] MEDS: K-PHOS ORIGINAL (POT.ACID PHOSPHATE) 500MG TAB PO SCH ×2 (08:00→21:13)
[2017-07-10] MEDS: NYSTATIN 100,000 UNITS/GM TOPICAL PWD 15 GM TOP SCH ×2 (08:04→21:15)
[2017-07-10 14:00] VITALS: BP 110/70
--- NOTE | 2017-07-10 14:05 | IPN ---
DATE: 07/10/2017 SUBJECTIVE: The patient is seen and examined in the room today. The patient continues to have multiple loose stools. However, the stool may be a little bit more formed compared to yesterday. The patient states he drank at least four bottles of Ensure which is double the amount of Ensure he used to take on a daily basis. No overnight events reported. OBJECTIVE: VITAL SIGNS: Temperature is 97.4, pulse is 85, respiratory rate is 17, blood pressure is 111/70, pulse oximetry is 97% in room air. GENERAL: No sign of acute distress, alert and oriented times three. HEENT: Normocephalic, atraumatic. Extraocular motor grossly intact. CARDIOVASCULAR: Positive S1, S2, regular rate. LUNGS: Clear to auscultation bilaterally. ABDOMEN: Soft, nontender, nondistended. Bowel sounds present. EXTREMITIES: No edema. No sign of cyanosis. LABORATORY DATA: WBC is 6.2, hemoglobin 8.8, hematocrit is 26.5, platelet count is 263. Sodium is 144, potassium 3.8, chloride is 116, carbon dioxide 19, BUN 15, creatinine 0.4, GFR greater than 60, fasting glucose 80, calcium is 7.9, magnesium 2. ASSESSMENT AND PLAN: 1. Clostridium difficile colitis. The patient continues to have multiple loose stools. The patient continues on oral vancomycin supplemented with Bacid. Infectious disease specialist, Dr. Marquez, has been assisting on the case. We appreciate her help. 2. History of AIDS. Continue on HIV medications. 3. Enteropathic Escherichia (E) coli infection. Continue with supportive care. Still complaining about frequent bowel movements. It may also be due to the active Clostridium )C) difficile colitis. The patient's vital signs are stable at this moment. 4. Microcytic anemia. Received two packs red blood cell transfusion on 07/02/2017. Hemoccult was negative. Hemoglobin and hematocrit have been monitored. There is no significant fluctuation of the hemoglobin and hematocrit at the present time. sign of acute bleeding. 5. History of non-anion gap acidosis secondary to gastrointestinal (GI) loss from diarrhea. Gap has been closed. Continue to monitor. 6. History of alcohol abuse. No sign of withdrawal. Serax as needed. Continue with folic acid, thiamine, and multivitamin. 7. Hypothyroidism, on Synthroid. 8. Severe protein calorie malnutrition. Encourage oral intake. The patient was able to increase number of Ensure usage. 9. History of acute kidney injury (OK) secondary to prerenal azotemia, resolved. 10. Hypophosphatemia. Continues to have low phosphorus level. The patient is currently on K-Phos. The patient has a history of significant phosphatemia, requiring intravenous (IV) phosphate injections. 11. Hypomagnesemia. Magnesium is within normal range. The patient is currently on magnesium supplement. 12. Poor home living situation. Due to the patient's sex offender history, the patient had limited resource to the government provided benefit. The patient's sister also has a grandson at home who she does not feel safe to bring the patient home to live with them. Continue to work with social media developer for a safer discharge. 13. Deep vein thrombosis (DVT) prophylaxis, on thromboembolic deterrents (TEDS) and sequential compression devices.
[2017-07-10] MEDS: CALCIUM CARBONATE 500 MG CHEW U/D PO PRN (21:14)
[2017-07-10] MEDS: ONDANSETRON 4MG/2ML VIAL (J2405) IV PRN (21:57)
[2017-07-10 22:00] VITALS: BP 138/80
[2017-07-11] MEDS: SODIUM CHLORIDE 0.9% INJ 10 ML SYR IV SCH ×2 (04:57→17:35)
[2017-07-11] MEDS: LEVOTHYROXINE 37.5MCG PER 1/2TAB (0.0375MG) PO SCH (05:43)
[2017-07-11] MEDS: VANCOMYCIN ORAL SOL 250MG/5ML ORAL SYRINGE PO SCH ×5 (05:43→23:28)
[2017-07-11] MEDS: ATRIPLA TAB PO SCH (05:43)
[2017-07-11 06:00] VITALS: BP 122/74
[2017-07-11] MEDS: LACTOBACILLUS ACIDOPHILUS CAP (BACID) PO SCH ×3 (08:06→17:36)
[2017-07-11] MEDS: K-PHOS ORIGINAL (POT.ACID PHOSPHATE) 500MG TAB PO SCH ×2 (08:06→21:07)
[2017-07-11] MEDS: FERROUS SULFATE 325MG TAB PO SCH ×2 (08:07→21:07)
[2017-07-11] MEDS: THIAMINE 100 MG TAB PO SCH (08:07)
[2017-07-11] MEDS: FOLIC ACID 1 MG TAB PO SCH (08:07)
[2017-07-11] MEDS: MAGNESIUM OXIDE 400 MG TAB (MAG-OX) PO SCH ×2 (08:07→21:07)
[2017-07-11] MEDS: MULTIVITAMINS/MINERALS THERAP 1 TAB PO SCH (08:07)
[2017-07-11] MEDS: NYSTATIN 100,000 UNITS/GM TOPICAL PWD 15 GM TOP SCH ×2 (08:08→21:08)
[2017-07-11 13:51] LABS: ANION GAP 9 MEQ/L (8-16); BLOOD UREA NITROGEN 19 MG/DL (7-18); CALCIUM LEVEL 7.5 MG/DL (8.5-10.1); CARBON DIOXIDE LEVEL 23 MEQ/L (21-32); CHLORIDE LEVEL 107 MEQ/L (98-107); CREATININE FOR GFR 0.44 MG/DL (0.70-1.30); GLOMERULAR FILTRATION RATE > 60.0 (>56); GLUCOSE, FASTING 98 MG/DL (70-105); POTASSIUM SERUM 4.2 MEQ/L (3.5-5.1); SODIUM LEVEL 139 MEQ/L (136-145)
[2017-07-11 14:00] VITALS: BP 129/79
[2017-07-11 14:03] LABS: ADD MANUAL DIFFER YES; MEAN CORPUSCULAR HEMOGLOBIN 34.6 pg (27.0-33.0); MEAN CORPUSCULAR HGB CONC 34.3 g/dl (32.0-36.5); PLATELET COUNT, AUTOMATED 316 k/mm3 (150-450); RED CELL DISTRIBUTION WIDTH 18.2 % (11.5-14.5); WHITE BLOOD COUNT 7.3 K/mm3 (4.0-10.0)
[2017-07-11 14:20] LABS: ANISOCYTOSIS 2+; BASOPHILS 1 % (0-4)
[2017-07-11] MEDS: ACETAMINOPHEN TAB 650MG DOSE (2X325MG) PO PRN ×2 (15:16→23:29)
[2017-07-11] MEDS: CALCIUM CARBONATE 500 MG CHEW U/D PO PRN (19:25)
[2017-07-11 22:00] VITALS: BP 120/72
--- NOTE | 2017-07-11 22:13 | IPN ---
DATE: 07/11/2017 SUBJECTIVE: Patient is seen and examined in the room today. Patient continues to have multiple loose stools. Patient has been taking Ensure at least two cans every day. No events reported overnight. OBJECTIVE: VITAL SIGNS: Temperature 97.4, pulse 87, respiration rate 17, blood pressure 122/74, pulse oximetry 97% in room air. GENERAL: No sign of acute distress. Alert and oriented times three. HEENT: Normocephalic, atraumatic. Extraocular motors grossly intact. CARDIOVASCULAR: Positive S1, S2, regular rate. LUNGS: Clear to auscultation bilaterally. ABDOMEN: Soft, nontender, nondistended. Bowel sounds present. EXTREMITIES: No edema. No sign of cyanosis. LABORATORY DATA: WBC 7.3, hemoglobin 9.1, hematocrit 26.5, platelet count 316. Sodium 139, potassium 4.2, chloride 107, carbon dioxide 23, BUN 19, creatinine 0.44, GFR greater than 60, fasting glucose 98, calcium 7.5. ASSESSMENT AND PLAN: 1. Clostridium (C) difficile colitis. Patient continues to have very loose stools. Patient is continued on oral vancomycin supplemented with Bacid. Dr. Marquez has been consulted, we appreciate her assistance. 2. History of HIV/AIDS. Continue on HIV/AIDS medications. 3. Heteropathic Escherichia (E) coli infection. Continue with supportive care. Continuing to have loose stools. Vital signs stable at this moment. 4. Microcytic anemia. Patient had 2 packs red blood cell transfusion on 07/02/2017. Hemoccult was negative. Since then, hemoglobin and hematocrit has been stable. No need for blood transfusion at this moment. 5. History of non-anion gap acidosis secondary to diarrhea. Gap is closed. Continue to monitor. 6. History of alcohol abuse. No sign of withdrawal. Continue folic acid, thiamine, and multivitamin. Serax as needed. 7. Hypothyroidism, on Synthroid. 8. Severe protein calorie malnutrition. Encourage oral intake. Recommend increased Ensure intake. 9. History of acute kidney injury (OK), resolved. 10. Hypophosphatemia. Patient is currently on K-phos. Patient has a history of severe hypophosphatemia, requiring IV phosphate injections. 11. Hypomagnesemia. Continue to monitor. 12. Poor living situation. Patient has a history of being a sex offender. It has been very difficult to find patient a placement. printing services coordinator has been assisting on the case. 13. Deep venous thrombosis (DVT) prophylaxis. On thromboembolism deterrents (TEDs) and sequential compression device.
[2017-07-12] MEDS: LEVOTHYROXINE 37.5MCG PER 1/2TAB (0.0375MG) PO SCH (05:47)
[2017-07-12] MEDS: ATRIPLA TAB PO SCH (05:47)
[2017-07-12] MEDS: VANCOMYCIN ORAL SOL 250MG/5ML ORAL SYRINGE PO SCH ×3 (05:49→17:18)
[2017-07-12 06:00] VITALS: BP 117/80
[2017-07-12 06:18] LABS: MEAN CORPUSCULAR HEMOGLOBIN 34.8 pg (27.0-33.0); MEAN CORPUSCULAR HGB CONC 34.1 g/dl (32.0-36.5); MEAN CORPUSCULAR VOLUME 102.1 fl (80.0-96.0); RED CELL DISTRIBUTION WIDTH 18.6 % (11.5-14.5); WHITE BLOOD COUNT 7.6 K/mm3 (4.0-10.0)
[2017-07-12 06:33] LABS: ANION GAP 9 MEQ/L (8-16); BLOOD UREA NITROGEN 16 MG/DL (7-18); CALCIUM LEVEL 7.8 MG/DL (8.5-10.1); CARBON DIOXIDE LEVEL 21 MEQ/L (21-32); CHLORIDE LEVEL 111 MEQ/L (98-107); CREATININE FOR GFR 0.39 MG/DL (0.70-1.30); GLOMERULAR FILTRATION RATE > 60.0 (>56); GLUCOSE, FASTING 86 MG/DL (70-105); POTASSIUM SERUM 3.4 MEQ/L (3.5-5.1); SODIUM LEVEL 141 MEQ/L (136-145)
[2017-07-12] MEDS ORDERED: POTASSIUM CHLORIDE 10 MEQ SR TABLET PO ONE (08:30)
[2017-07-12 08:55] VITALS: BP 126/84
[2017-07-12] MEDS: MAGNESIUM OXIDE 400 MG TAB (MAG-OX) PO SCH ×2 (09:00→22:07)
[2017-07-12] MEDS: LACTOBACILLUS ACIDOPHILUS CAP (BACID) PO SCH ×3 (09:09→17:18)
[2017-07-12] MEDS: FOLIC ACID 1 MG TAB PO SCH (09:53)
[2017-07-12] MEDS: FERROUS SULFATE 325MG TAB PO SCH ×2 (09:54→22:08)
[2017-07-12] MEDS: THIAMINE 100 MG TAB PO SCH (09:54)
[2017-07-12] MEDS: MULTIVITAMINS/MINERALS THERAP 1 TAB PO SCH (09:54)
[2017-07-12] MEDS: NYSTATIN 100,000 UNITS/GM TOPICAL PWD 15 GM TOP SCH ×2 (09:56→22:09)
[2017-07-12] MEDS: K-PHOS ORIGINAL (POT.ACID PHOSPHATE) 500MG TAB PO SCH ×2 (09:56→22:07)
[2017-07-12 14:30] VITALS: BP 126/78
--- NOTE | 2017-07-12 14:43 | IPN ---
DATE OF SERVICE: 07/12/2017 Patient is seen and examined at the bedside. Chart has been reviewed. Per nursing he continues to have loose bowel movements, about three documented yesterday, none yet today. He has had two incontinent voids and four documented voids. Intake and output overnight was 920 in and output not well documented. Per the patient however, he has had about eight bowel movements, five of which were not documented on the computer, unsure whether the patient is correct. This morning, the patient states that he has no nausea or vomiting. He is tolerating his diet well. He has slight abdominal discomfort, but no distinct abdominal pain. He is afebrile. Temperature 97.7, pulse 91, respiratory rate 16, blood pressure 126/84, 97% on room air. Generally, patient appears older than his stated age. He is cachectic appearing, disheveled, with muscle wasting. He is speaking in full sentences. No respiratory distress or use of respiratory accessory muscles. No jugular venous distention (JVD). Poor dentition. No cervical lymphadenopathy. No thyromegaly. No icterus or jaundice. Pupils are round and reactive to light. Extraocular muscles are intact. No cervical lymphadenopathy, thyromegaly, or jugular venous distention (JVD). Lungs are clear to auscultation. No wheezing, rales or rhonchi. Heart S1 and S2, sinus rhythm. No murmurs, rubs or gallops. Abdomen is soft, nontender, nondistended. Positive bowel sounds times four quadrants. Extremities muscle wasting with no lower extremity edema. Skin warm and dry, well perfused, pink in color. Patient had some purplish lesions on the lower extremities, but non blanching. LABORATORY DATA: White count 7.6, hemoglobin 8.8, hematocrit 25, platelet count 335, sodium 141, potassium 3.4, chloride 111, bicarb 21, BUN 16, creatinine 0.39 , glucose of 86, phosphorous of 2.0, magnesium was 2, currently on K-Phos 1 gram twice a day. IMAGING STUDIES: Lumbar spine MRI 06/28 shows diffuse disc bulges L3 to S1. Central canal stenosis. Acute L1 compression fracture with moderate spinal canal compromise. Evaluated by Dr. Burroughs on 07/01 : Not a candidate for fusion procedure. Continue use of brace and out of bed, pain management . ASSESSMENT/PLAN: This is a 52-year-old male with history of HIV/AIDS, pneumocystis pneumonia in 2001, alcohol abuse, tobacco abuse, 100% compliant with HIV medications, Atripla , CD4 count over 600, viral load undetectable, history of heavy smoking rolling his cigarettes and heavy alcohol use with AIDS cachexia and severe protein calorie malnutrition, BMI of 16, stage I-II decubitus ulcer in the buttocks on admission , with multiple purplish areas, 2 cm central brown eschar on the lower extremities , history of being a sex offender, has lived in very poor conditions for years, admitted due to acute renal failure, electrolyte abnormalities with hypokalemia and dehydration secondary to C. difficile colitis with no recent use of antibiotics. The patient has been treated with by mouth vancomycin with no significant improvement, IV Flagyl has been given, currently on day 14 of oral Flagyl and questionable rash secondary to ecthyma gangrenosum versus Rickettsial infection due to thrombocytopenia on admission. Current issues are as follows: 1. C. difficile colitis on oral vancomycin. Continues to have loose stools, three documented by nursing. The patient states he had eight bowel movements yesterday. Currently on probiotic and oral vancomycin. Dr. Marquez has been consulted and will await any further recommendations as the patient is still consistently having diarrhea but improved from admission. 2. History of HIV/AIDS with undetectable viral load as an outpatient and improved CD4 count greater than 600. Currently back on Atripla. Dr. Marquez is monitoring. 3. Enteropathogenic E. Coli on the GI panel. On full supportive care. Status post intravenous fluids. Currently only on oral vancomycin. 4. History of heavy alcohol abuse. On delirium tremens precautions. Multivitamin, thiamine and folate. 5. Heavy cigarette smoker with tobacco abuse. Currently on 14 mg patch daily. 6. Electrolyte abnormalities. Has been supplemented. Potassium, magnesium and K-Phos 1 gram twice a day . 7. Hypothyroidism on Synthroid 37.5 mcg daily. 8. Stage I-II buttock decubitus on zinc oxide. Wound care will be consulted. 9. Severe protein calorie malnutrition, BMI of 12.9. continue w ensure enlive tid. nca certified concierge consulted. 10. acute L1 compression fracture: Per Ortho Dr. Juan Burroughs, not a surgical candidate. continue w brace DISPOSITION: Patient is registered sex offender and will need placement as he lives in very poor conditions and cannot care for himself. defer to PFS for placement issues. PAULIE
[2017-07-12 22:00] VITALS: BP 118/75
[2017-07-13] MEDS: VANCOMYCIN ORAL SOL 250MG/5ML ORAL SYRINGE PO SCH ×5 (00:39→23:25)
[2017-07-13] MEDS: ACETAMINOPHEN TAB 650MG DOSE (2X325MG) PO PRN ×2 (00:45→20:13)
[2017-07-13] MEDS: ATRIPLA TAB PO SCH (05:58)
[2017-07-13] MEDS: LEVOTHYROXINE 37.5MCG PER 1/2TAB (0.0375MG) PO SCH (05:58)
[2017-07-13 06:00] VITALS: BP 114/68
[2017-07-13] MEDS: LACTOBACILLUS ACIDOPHILUS CAP (BACID) PO SCH ×3 (08:18→18:18)
[2017-07-13] MEDS: THIAMINE 100 MG TAB PO SCH (08:19)
[2017-07-13] MEDS: FOLIC ACID 1 MG TAB PO SCH (08:19)
[2017-07-13] MEDS: MULTIVITAMINS/MINERALS THERAP 1 TAB PO SCH (08:19)
[2017-07-13] MEDS: K-PHOS ORIGINAL (POT.ACID PHOSPHATE) 500MG TAB PO SCH ×2 (08:19→20:12)
[2017-07-13] MEDS: MAGNESIUM OXIDE 400 MG TAB (MAG-OX) PO SCH ×2 (08:19→20:14)
[2017-07-13] MEDS: NYSTATIN 100,000 UNITS/GM TOPICAL PWD 15 GM TOP SCH ×2 (08:19→20:14)
[2017-07-13] MEDS: FERROUS SULFATE 325MG TAB PO SCH ×2 (08:19→20:14)
[2017-07-13 08:36] LABS: ANION GAP 10 MEQ/L (8-16); BLOOD UREA NITROGEN 14 MG/DL (7-18); CALCIUM LEVEL 8.7 MG/DL (8.5-10.1); CARBON DIOXIDE LEVEL 21 MEQ/L (21-32); CHLORIDE LEVEL 110 MEQ/L (98-107); GLOMERULAR FILTRATION RATE > 60.0 (>56); GLUCOSE, FASTING 87 MG/DL (70-105); PHOSPHORUS LEVEL 2.5 MG/DL (2.5-4.9); POTASSIUM SERUM 4.1 MEQ/L (3.5-5.1); SODIUM LEVEL 141 MEQ/L (136-145)
[2017-07-13 08:48] LABS: MEAN CORPUSCULAR HEMOGLOBIN 34.8 pg (27.0-33.0); MEAN CORPUSCULAR HGB CONC 33.7 g/dl (32.0-36.5); MEAN CORPUSCULAR VOLUME 103.3 fl (80.0-96.0); RED CELL DISTRIBUTION WIDTH 17.7 % (11.5-14.5)
--- NOTE | 2017-07-13 13:21 | IPN ---
DATE: 07/13/2017 Patient is seen and examined at the bedside. Chart has been reviewed. This morning, the patient denies any diarrhea, nausea, vomiting, or abdominal pain. He had one bowel movement yesterday. No other issues per nursing. His appetite is poor, but he is tolerating his diet well without vomiting. Feels weak and has not ambulated around the floor as yet. No other issues per nursing. PHYSICAL EXAMINATION: VITAL SIGNS: Temperature 97.5, pulse 94, respiratory rate 16, blood pressure 114/68, 98% on room air. Input and output: Input 980 and output not documented. Bowel movement was one yesterday and one today, six voids yesterday. GENERAL: He is cachectic appearing. Older than his stated age, but he is awake , alert, and oriented to person, place and time. Appears disheveled with muscle wasting. He speaks in full sentences. No respiratory distress or use of respiratory accessory muscles. Anicteric sclerae with jaundice. No jugular venous distention (JVD). Poor dentition. No cervical lymphadenopathy or thyromegaly. Pupils are round and reactive. Extraocular muscles are intact. No thyromegaly. LUNGS: Clear to auscultation. No wheezes, rales, or rhonchi. Air entry is equal bilaterally. HEART: S1, S2. Sinus rhythm. No murmurs, rubs or gallops. Nondisplaced point of maximum impulse (PMI). ABDOMEN: Soft, nontender, nondistended. Bowel sounds positive times four quadrants. No hepatosplenomegaly, rebound or guarding. EXTREMITIES: Muscle wasting. No lower extremity edema. Skin is warm and dry, well perfused, pink in color, purplish lesions in lower extremities, nonblanching and improving. Laboratory data and imaging studies have been reviewed. ASSESSMENT AND PLAN: This is a 52-year-old male with history of HIV/AIDS, pneumocystis pneumonia in 2002, alcohol abuse, tobacco abuse, 100% compliant with HIV medications, Atripla with CD4 count over 600, viral load undetectable, history of heavy smoking, rolling his cigarettes and heavy alcohol use with AIDS cachexia and severe protein calorie malnutrition with Body Mass Index (BMI) of 16, stage I-II decubitus ulcer in the buttocks present on admission, with multiple purplish areas, 2 cm, central brown eschar on the lower extremities, history of being a sex offender, has lived in very poor conditions for years with rats and mice, admitted due to acute renal failure secondary to severe diarrhea from Clostridium (C.) difficile colitis with no recent use of antibiotics. The patient has been treated successful with oral vancomycin and currently tolerating his diet without nausea or vomiting. CURRENT ISSUES: 1. C. difficile colitis on oral vancomycin. Appears to have improved significantly. Currently had one bowel movement yesterday. The patient says that he has had no diarrhea this morning. He is currently on probiotic and oral vancomycin. Currently on day #15 of oral vancomycin. Defer to Dr. Marquez to taper or do pulse dosing as needed. 2. History of HIV/AIDS with undetectable viral load as an outpatient and CD4 count greater than 600. Back on Atripla. Dr. Marquez is monitoring. 3. Enteropathogenic E. Coli on the GI panel. On full supportive care. Status post intravenous fluids. Currently only on oral vancomycin for C difficile. 4. Heavy cigarette smoking with tobacco abuse. Currently on nicotine patch 14 mg daily. 5. Electrolyte abnormalities, resolved. Potassium, magnesium have been supplemented. Phosphorous has been supplemented currently with K-Phos 1 gram twice a day. 6. Hypothyroidism on Synthroid 37.5 mcg daily. 7. Stage I-II buttock decubitus on zinc oxide. Wound care will be consulted. 8. Severe protein calorie malnutrition, BMI of 12.9. Continue with Ensure at least three times a day. Nutrition is consulted. 9. Acute L1 compression fracture. Follows with Dr. Juan Burroughs. Not a surgical candidate. Continue with brace for now. DISPOSITION: Patient is a registered sex offender and will need placement as he lives in very poor conditions with exposure to mice and rats. He is unable to care for himself at baseline. Therefore, we will defer to patient and family services (PFS) for placement issues. As of now, the patient appears to be medically stable to be transferred to alternate level of care (ALC), intermediate facility (SNF) status. He may be transferred to [address] [place] [address] if acute medical/surgical bed is needed. ALC orders have been done and the patient has been made aware that he will at this point be seen once a week and that he will be on a waiting list for placement. [facility]
[2017-07-14] MEDS: traMADol 50 MG TAB PO PRN ×2 (03:04→17:52)
[2017-07-14 05:00] VITALS: BP 121/72
[2017-07-14] MEDS: VANCOMYCIN ORAL SOL 250MG/5ML ORAL SYRINGE PO SCH ×4 (06:08→23:16)
[2017-07-14] MEDS: ATRIPLA TAB PO SCH (06:08)
[2017-07-14] MEDS: LEVOTHYROXINE 37.5MCG PER 1/2TAB (0.0375MG) PO SCH (06:09)
[2017-07-14] MEDS: MULTIVITAMINS/MINERALS THERAP 1 TAB PO SCH (08:19)
[2017-07-14] MEDS: K-PHOS ORIGINAL (POT.ACID PHOSPHATE) 500MG TAB PO SCH ×2 (08:19→20:49)
[2017-07-14] MEDS: THIAMINE 100 MG TAB PO SCH (08:19)
[2017-07-14] MEDS: MAGNESIUM OXIDE 400 MG TAB (MAG-OX) PO SCH ×2 (08:20→20:49)
[2017-07-14] MEDS: FERROUS SULFATE 325MG TAB PO SCH ×2 (08:20→20:49)
[2017-07-14] MEDS: FOLIC ACID 1 MG TAB PO SCH (08:20)
[2017-07-14] MEDS: LACTOBACILLUS ACIDOPHILUS CAP (BACID) PO SCH ×3 (08:20→17:52)
[2017-07-14] MEDS: NYSTATIN 100,000 UNITS/GM TOPICAL PWD 15 GM TOP SCH ×2 (08:21→20:49)
[2017-07-14 09:13] LABS: MEAN CORPUSCULAR HEMOGLOBIN 35.1 pg (27.0-33.0); MEAN CORPUSCULAR HGB CONC 34.2 g/dl (32.0-36.5); MEAN CORPUSCULAR VOLUME 102.8 fl (80.0-96.0); RED CELL DISTRIBUTION WIDTH 17.7 % (11.5-14.5); WHITE BLOOD COUNT 5.4 K/mm3 (4.0-10.0)
[2017-07-14 09:37] LABS: ANION GAP 9 MEQ/L (8-16); BLOOD UREA NITROGEN 16 MG/DL (7-18); CALCIUM LEVEL 8.2 MG/DL (8.5-10.1); CARBON DIOXIDE LEVEL 21 MEQ/L (21-32); CHLORIDE LEVEL 110 MEQ/L (98-107); CREATININE FOR GFR 0.56 MG/DL (0.70-1.30); GLOMERULAR FILTRATION RATE > 60.0 (>56); GLUCOSE, FASTING 96 MG/DL (70-105); POTASSIUM SERUM 3.9 MEQ/L (3.5-5.1); SODIUM LEVEL 140 MEQ/L (136-145)
[2017-07-14 22:00] VITALS: BP 150/88
[2017-07-15] MEDS: LEVOTHYROXINE 37.5MCG PER 1/2TAB (0.0375MG) PO SCH (06:12)
[2017-07-15] MEDS: VANCOMYCIN ORAL SOL 250MG/5ML ORAL SYRINGE PO SCH ×3 (06:12→17:32)
[2017-07-15] MEDS: ATRIPLA TAB PO SCH (06:12)
[2017-07-15 06:30] LABS: ANION GAP 11 MEQ/L (8-16); BLOOD UREA NITROGEN 16 MG/DL (7-18); CALCIUM LEVEL 8.5 MG/DL (8.5-10.1); CARBON DIOXIDE LEVEL 20 MEQ/L (21-32); CHLORIDE LEVEL 111 MEQ/L (98-107); CREATININE FOR GFR 0.42 MG/DL (0.70-1.30); GLOMERULAR FILTRATION RATE > 60.0 (>56); GLUCOSE, FASTING 82 MG/DL (70-105); POTASSIUM SERUM 3.8 MEQ/L (3.5-5.1); SODIUM LEVEL 142 MEQ/L (136-145)
[2017-07-15 06:34] LABS: MEAN CORPUSCULAR HEMOGLOBIN 33.7 pg (27.0-33.0); MEAN CORPUSCULAR HGB CONC 32.3 g/dl (32.0-36.5); MEAN CORPUSCULAR VOLUME 104.5 fl (80.0-96.0); RED CELL DISTRIBUTION WIDTH 17.9 % (11.5-14.5); WHITE BLOOD COUNT 5.7 K/mm3 (4.0-10.0)
[2017-07-15] MEDS: THIAMINE 100 MG TAB PO SCH (07:57)
[2017-07-15] MEDS: K-PHOS ORIGINAL (POT.ACID PHOSPHATE) 500MG TAB PO SCH ×2 (07:57→21:07)
[2017-07-15] MEDS: LACTOBACILLUS ACIDOPHILUS CAP (BACID) PO SCH ×3 (07:57→17:32)
[2017-07-15] MEDS: FERROUS SULFATE 325MG TAB PO SCH ×2 (07:57→21:08)
[2017-07-15] MEDS: MAGNESIUM OXIDE 400 MG TAB (MAG-OX) PO SCH ×2 (07:57→21:08)
[2017-07-15] MEDS: NYSTATIN 100,000 UNITS/GM TOPICAL PWD 15 GM TOP SCH ×2 (07:57→21:08)
[2017-07-15] MEDS: FOLIC ACID 1 MG TAB PO SCH (07:57)
[2017-07-15] MEDS: MULTIVITAMINS/MINERALS THERAP 1 TAB PO SCH (07:57)
--- NOTE | 2017-07-15 11:12 | REP ---
Clinical: L1 compression fracture. Correlation: CT dated 06/27/2017. Findings: A marked compression fracture at L1 is identified and relatively unchanged when compared to CT dated 11/23. Remainder of the visualized thoracolumbar spine demonstrates osteopenia and degenerative changes. No further acute fracture or compression injury identified. Impression: Marked compression fracture at L1 essentially unchanged from CT dated 06/27/2017 Signed by Higinio Mast MD 07/15/2017 09:07 A
[2017-07-15] MEDS ORDERED: VITMTA PO (12:20)
[2017-07-15] MEDS ORDERED: FERR1TAB8 PO (12:20)
[2017-07-15] MEDS ORDERED: BOUDPST TOP (12:20)
[2017-07-15] MEDS ORDERED: NICO14PA TD (12:20)
[2017-07-15] MEDS ORDERED: FOLI1TAB4 PO (12:20)
[2017-07-15] MEDS ORDERED: THIA100TA PO (12:20)
[2017-07-15] MEDS ORDERED: KPHOS50TA PO (12:20)
[2017-07-15] MEDS ORDERED: RISATAB3 PO (12:20)
[2017-07-15] MEDS ORDERED: NYST10PW TOP (12:20)
[2017-07-15] MEDS ORDERED: LEVO75TA4 PO (12:20)
[2017-07-15] MEDS ORDERED: FIRS1SOL3 PO (12:20)
[2017-07-15] MEDS ORDERED: MAG400TA PO (12:20)
[2017-07-15] MEDS: traMADol 50 MG TAB PO PRN (18:21)
[2017-07-15] MEDS ORDERED: ONDANSETRON 4 MG TAB (S0181) PO PRN (22:15)
[2017-07-15] MEDS ORDERED: CALCIUM CARBONATE 500 MG CHEW U/D PO PRN (22:15)
[2017-07-16] MEDS: VANCOMYCIN ORAL SOL 250MG/5ML ORAL SYRINGE PO SCH ×5 (00:29→23:13)
[2017-07-16] MEDS: ACETAMINOPHEN TAB 650MG DOSE (2X325MG) PO PRN ×2 (01:23→23:14)
[2017-07-16] MEDS: ATRIPLA TAB PO SCH (05:42)
[2017-07-16] MEDS: LEVOTHYROXINE 37.5MCG PER 1/2TAB (0.0375MG) PO SCH (05:42)
[2017-07-16 05:58] LABS: MEAN CORPUSCULAR HEMOGLOBIN 34.7 pg (27.0-33.0); MEAN CORPUSCULAR HGB CONC 33.8 g/dl (32.0-36.5); MEAN CORPUSCULAR VOLUME 102.8 fl (80.0-96.0); RED CELL DISTRIBUTION WIDTH 17.4 % (11.5-14.5); WHITE BLOOD COUNT 7.2 K/mm3 (4.0-10.0)
[2017-07-16 06:00] VITALS: BP 137/86
[2017-07-16 06:17] LABS: ANION GAP 9 MEQ/L (8-16); BLOOD UREA NITROGEN 15 MG/DL (7-18); CALCIUM LEVEL 8.2 MG/DL (8.5-10.1); CARBON DIOXIDE LEVEL 22 MEQ/L (21-32); CHLORIDE LEVEL 109 MEQ/L (98-107); CREATININE FOR GFR 0.45 MG/DL (0.70-1.30); GLOMERULAR FILTRATION RATE > 60.0 (>56); GLUCOSE, FASTING 83 MG/DL (70-105); POTASSIUM SERUM 3.4 MEQ/L (3.5-5.1); SODIUM LEVEL 140 MEQ/L (136-145)
[2017-07-16] MEDS: THIAMINE 100 MG TAB PO SCH (08:58)
[2017-07-16] MEDS: K-PHOS ORIGINAL (POT.ACID PHOSPHATE) 500MG TAB PO SCH ×2 (08:58→21:10)
[2017-07-16] MEDS: FERROUS SULFATE 325MG TAB PO SCH ×2 (08:58→21:09)
[2017-07-16] MEDS: FOLIC ACID 1 MG TAB PO SCH (08:58)
[2017-07-16] MEDS: MAGNESIUM OXIDE 400 MG TAB (MAG-OX) PO SCH ×2 (08:58→21:10)
[2017-07-16] MEDS: LACTOBACILLUS ACIDOPHILUS CAP (BACID) PO SCH ×3 (08:58→17:20)
[2017-07-16] MEDS: NYSTATIN 100,000 UNITS/GM TOPICAL PWD 15 GM TOP SCH ×2 (08:58→21:10)
[2017-07-16] MEDS: MULTIVITAMINS/MINERALS THERAP 1 TAB PO SCH (08:58)
[2017-07-16] MEDS: traMADol 50 MG TAB PO PRN (18:12)
[2017-07-17 05:54] LABS: MEAN CORPUSCULAR HEMOGLOBIN 34.2 pg (27.0-33.0); MEAN CORPUSCULAR VOLUME 100.8 fl (80.0-96.0); RED CELL DISTRIBUTION WIDTH 17.4 % (11.5-14.5); WHITE BLOOD COUNT 10.5 K/mm3 (4.0-10.0)
[2017-07-17 06:00] VITALS: BP 139/86
[2017-07-17] MEDS: ATRIPLA TAB PO SCH (06:15)
[2017-07-17] MEDS: LEVOTHYROXINE 37.5MCG PER 1/2TAB (0.0375MG) PO SCH (06:15)
[2017-07-17] MEDS: VANCOMYCIN ORAL SOL 250MG/5ML ORAL SYRINGE PO SCH ×3 (06:15→17:31)
[2017-07-17 06:18] LABS: BLOOD UREA NITROGEN 14 MG/DL (7-18); CALCIUM LEVEL 8.6 MG/DL (8.5-10.1); CARBON DIOXIDE LEVEL 23 MEQ/L (21-32); CHLORIDE LEVEL 115 MEQ/L (98-107); CREATININE FOR GFR 0.52 MG/DL (0.70-1.30); GLUCOSE, FASTING 86 MG/DL (70-105)
[2017-07-17 06:24] LABS: POTASSIUM SERUM 3.3 MEQ/L (3.5-5.1); SODIUM LEVEL 136 MEQ/L (136-145)
[2017-07-17] MEDS: FERROUS SULFATE 325MG TAB PO SCH ×2 (08:43→20:27)
[2017-07-17] MEDS: FOLIC ACID 1 MG TAB PO SCH (08:43)
[2017-07-17] MEDS: THIAMINE 100 MG TAB PO SCH (08:43)
[2017-07-17] MEDS: K-PHOS ORIGINAL (POT.ACID PHOSPHATE) 500MG TAB PO SCH ×2 (08:43→20:27)
[2017-07-17] MEDS: MULTIVITAMINS/MINERALS THERAP 1 TAB PO SCH (08:43)
[2017-07-17] MEDS: MAGNESIUM OXIDE 400 MG TAB (MAG-OX) PO SCH ×2 (08:43→20:27)
[2017-07-17] MEDS: NYSTATIN 100,000 UNITS/GM TOPICAL PWD 15 GM TOP SCH ×2 (08:44→20:27)
[2017-07-17] MEDS: LACTOBACILLUS ACIDOPHILUS CAP (BACID) PO SCH ×3 (08:47→17:31)
[2017-07-17] MEDS: traMADol 50 MG TAB PO PRN (17:32)
[2017-07-17] MEDS: ACETAMINOPHEN TAB 650MG DOSE (2X325MG) PO PRN (20:34)
[2017-07-18] MEDS: VANCOMYCIN ORAL SOL 250MG/5ML ORAL SYRINGE PO SCH ×2 (00:08→05:55)
[2017-07-18] MEDS: traMADol 50 MG TAB PO PRN ×2 (02:58→18:23)
[2017-07-18] MEDS: ATRIPLA TAB PO SCH (05:55)
[2017-07-18] MEDS: LEVOTHYROXINE 37.5MCG PER 1/2TAB (0.0375MG) PO SCH (05:55)
[2017-07-18 06:37] LABS: MEAN CORPUSCULAR HEMOGLOBIN 34.5 pg (27.0-33.0); MEAN CORPUSCULAR HGB CONC 33.9 g/dl (32.0-36.5); MEAN CORPUSCULAR VOLUME 101.9 fl (80.0-96.0); RED CELL DISTRIBUTION WIDTH 17.2 % (11.5-14.5); WHITE BLOOD COUNT 9.8 K/mm3 (4.0-10.0)
[2017-07-18 07:02] LABS: ANION GAP 10 MEQ/L (8-16); BLOOD UREA NITROGEN 18 MG/DL (7-18); CALCIUM LEVEL 8.9 MG/DL (8.5-10.1); CARBON DIOXIDE LEVEL 25 MEQ/L (21-32); CHLORIDE LEVEL 103 MEQ/L (98-107); CREATININE FOR GFR 0.49 MG/DL (0.70-1.30); GLOMERULAR FILTRATION RATE > 60.0 (>56); GLUCOSE, FASTING 82 MG/DL (70-105); POTASSIUM SERUM 2.9 MEQ/L (3.5-5.1); SODIUM LEVEL 138 MEQ/L (136-145)
[2017-07-18] MEDS: POTASSIUM CHLORIDE 10 MEQ SR TABLET PO SCH ×2 (08:36→21:34)
[2017-07-18] MEDS: K-PHOS ORIGINAL (POT.ACID PHOSPHATE) 500MG TAB PO SCH ×2 (08:36→21:34)
[2017-07-18] MEDS: FOLIC ACID 1 MG TAB PO SCH (08:36)
[2017-07-18] MEDS: FERROUS SULFATE 325MG TAB PO SCH ×2 (08:36→21:34)
[2017-07-18] MEDS: THIAMINE 100 MG TAB PO SCH (08:36)
[2017-07-18] MEDS: MULTIVITAMINS/MINERALS THERAP 1 TAB PO SCH (08:37)
[2017-07-18] MEDS: MAGNESIUM OXIDE 400 MG TAB (MAG-OX) PO SCH ×2 (08:37→21:34)
[2017-07-18] MEDS: NYSTATIN 100,000 UNITS/GM TOPICAL PWD 15 GM TOP SCH ×2 (08:37→21:34)
[2017-07-18] MEDS: LACTOBACILLUS ACIDOPHILUS CAP (BACID) PO SCH ×3 (08:37→18:22)
[2017-07-18 11:41] LABS: MEAN CORPUSCULAR HEMOGLOBIN 34.1 pg (27.0-33.0); MEAN CORPUSCULAR HGB CONC 33.2 g/dl (32.0-36.5); MEAN CORPUSCULAR VOLUME 102.9 fl (80.0-96.0); RED CELL DISTRIBUTION WIDTH 17.7 % (11.5-14.5); WHITE BLOOD COUNT 10.4 K/mm3 (4.0-10.0)
[2017-07-18 12:35] LABS: ANION GAP 11 MEQ/L (8-16); BLOOD UREA NITROGEN 17 MG/DL (7-18); CALCIUM LEVEL 8.8 MG/DL (8.5-10.1); CARBON DIOXIDE LEVEL 25 MEQ/L (21-32); CHLORIDE LEVEL 103 MEQ/L (98-107); CREATININE FOR GFR 0.52 MG/DL (0.70-1.30); GLOMERULAR FILTRATION RATE > 60.0 (>56); GLUCOSE, FASTING 90 MG/DL (70-105); POTASSIUM SERUM 4.2 MEQ/L (3.5-5.1); SODIUM LEVEL 139 MEQ/L (136-145)
--- NOTE | 2017-07-18 16:43 | IPN ---
DATE: 07/18/2017 Kyler seems to be still having diarrhea. He also states he has had vomiting and he has not been able to keep anything down since other than his breakfast. He denies any fever or chills. No abdominal pain. He has been scratching his legs where he had some scabs and bleeding. He, hopefully, will be getting discharged in the next couple of days to a new house with an adult protective worker. LABORATORY DATA: White count is 10.4, hemoglobin 9.8, hematocrit 29.6, platelets 608. Hemoglobin has dropped during this admission to 6.7. Sodium 139, potassium 4.2, chloride 103, bicarbonate 25, BUN 17, creatinine 0.5, glucose 90, calcium 8.8. Alcohol level is less than 0.03. Heparin-induced antibodies were 0.94. PHYSICAL EXAMINATION: On physical examination, temperature is 97.9, pulse 110, respirations 18, blood pressure 139/86, oxygen saturation 99% on room air. HEART: Normal S1, S2. No murmurs. LUNGS: Clear. No wheezes, rales, or rhonchi. ABDOMEN: Soft, nontender. No visceromegaly. EXTREMITIES: Multiple scabs that are healing, some are bleeding from picking. IMPRESSION: 1. Clostridium (C) difficile colitis status post treatment with vancomycin since 06/26/2017. He has received at least three weeks of therapy with persistent diarrhea and he received also three days of IV metronidazole. 2. Presumed vomiting, although that was not witnessed by nurses. 3. Persistent hypokalemia. 4. Anemia status post transfusion. PLAN: I would suggest consulting gastroenterology for possible endoscopy and colonoscopy to make sure he does not have any other source of bleeding causing his diarrhea or other HIV-related manifestations, even though the patient has been very compliant with medication and most recent CD-4 count was done and is 696 done on 05/05/2017 and his viral load was undetectable. Consult gastroenterology (GI) for endoscopy and colonoscopy for workup of anemia and screening colonoscopy. Case has been discussed with Dr. Pickett.
[2017-07-18] MEDS: ACETAMINOPHEN TAB 650MG DOSE (2X325MG) PO PRN (18:22)
[2017-07-19] MEDS: ACETAMINOPHEN TAB 650MG DOSE (2X325MG) PO PRN (00:09)
[2017-07-19 06:00] VITALS: BP 132/78
[2017-07-19] MEDS: LEVOTHYROXINE 37.5MCG PER 1/2TAB (0.0375MG) PO SCH (06:12)
[2017-07-19] MEDS: ATRIPLA TAB PO SCH (06:12)
[2017-07-19] MEDS: FOLIC ACID 1 MG TAB PO SCH (08:28)
[2017-07-19] MEDS: MULTIVITAMINS/MINERALS THERAP 1 TAB PO SCH (08:28)
[2017-07-19] MEDS: K-PHOS ORIGINAL (POT.ACID PHOSPHATE) 500MG TAB PO SCH ×2 (08:28→20:54)
[2017-07-19] MEDS: THIAMINE 100 MG TAB PO SCH (08:28)
[2017-07-19] MEDS: LACTOBACILLUS ACIDOPHILUS CAP (BACID) PO SCH ×3 (08:28→17:43)
[2017-07-19] MEDS: FERROUS SULFATE 325MG TAB PO SCH ×2 (08:28→20:54)
[2017-07-19] MEDS: MAGNESIUM OXIDE 400 MG TAB (MAG-OX) PO SCH ×2 (08:28→20:53)
[2017-07-19] MEDS: NYSTATIN 100,000 UNITS/GM TOPICAL PWD 15 GM TOP SCH ×2 (08:29→20:54)
[2017-07-19] MEDS: traMADol 50 MG TAB PO PRN (08:30)
[2017-07-19 14:00] VITALS: BP 144/90
--- NOTE | 2017-07-19 15:19 | IPNPDOC ---
Text Note Date of Service The patient was seen on 07/19/17. NOTE Subjective: Patient is a 52 year old male with a PMHx of AIDS, PCP, Oral Candidiasis, COPD, Bronchitis, ADHD, Hx of rib fracture, Alcohol and Tobacco abuse who presented to [facility] with general malaise and diarrhea. He was found to have poor housing conditions prior to arrival. He was found to have C. diff colitis and received treatment with vancomycin oral. Patient was seen and examined at the bedside. He notes that he is still experiencing diarrhea. He denies any nausea or vomiting. He notes some abdominal pain, but attributes that to his back brace causing some scratching. Objective: Vitals (See below) General: Lying in bed, no acute distress, comfortable, AAOx3 HEENT: NC, AT CVS: RRR, +S1S2 Lungs: Fair air entry b/l, no wheezing, rales or rhonchi Abdomen: Soft, ND, NT, Hypoactive BS Extremities: - Edema, - Calf tenderness Assessment and plan: Diarrhea - possibly 2/2 C. diff colitis, possibly 2/2 AIDS related opportunistic infection - Showed improvement in diarrhea initially, but worsened - GI panel: Enteropathogenic E. coli / C. Diff A/B - s/p Vancomycin PO - s/p IV fluid hydration - c/w Oral probiotic - Dr. Marquez consulted - Dr. Barrientos (GI) consulted; may require colonoscopy AIDS - Recent CD4 >600, VL undetectable - Reports compliance with medications - c/w Atripla Acute L1 Compression Fracture - c/w back brace; not a surgical candidate - Follows with Dr. Mariah Burroughs Stage I / II decubitus ulcer on buttock - c/w wound care Nicotine dependence - c/w nicotine patch s/p Electrolyte abnormalities Hypothyroidism - c/w Levothyroxine Severe protein calorie malnutrition - BMI of 13 - c/w Supplemental nutrition via Ensure Disposition: - Awaiting possible colonoscopy decision - Placement option given poor living conditions VS,Genoveva, I+O VS, Genoveva, I+O Vital Signs Date Time Temp Pulse Resp B/P (MAP) Pulse Ox O2 Delivery O2 Flow Rate FiO2 07/19/17 09:00 18 07/19/17 08:30 Room Air 07/19/17 06:00 97.6 85 132/78 (96) 98 I&O- Last 24 Hours up to 6 AM 07/19/17 06:00 Intake Total 2160 ml Output Total 0 ml Balance 2160 ml ELIEZER BARRERA MD Jul 19, 2017 15:19
[2017-07-20] MEDS: traMADol 50 MG TAB PO PRN (02:00)
[2017-07-20 06:00] VITALS: BP 134/88
[2017-07-20] MEDS: LEVOTHYROXINE 37.5MCG PER 1/2TAB (0.0375MG) PO SCH (06:15)
[2017-07-20] MEDS: ATRIPLA TAB PO SCH (06:15)
[2017-07-20] MEDS: LACTOBACILLUS ACIDOPHILUS CAP (BACID) PO SCH (09:09)
[2017-07-20] MEDS: FOLIC ACID 1 MG TAB PO SCH (09:09)
[2017-07-20] MEDS: K-PHOS ORIGINAL (POT.ACID PHOSPHATE) 500MG TAB PO SCH (09:09)
[2017-07-20] MEDS: FERROUS SULFATE 325MG TAB PO SCH (09:09)
[2017-07-20] MEDS: MULTIVITAMINS/MINERALS THERAP 1 TAB PO SCH (09:10)
[2017-07-20] MEDS: MAGNESIUM OXIDE 400 MG TAB (MAG-OX) PO SCH (09:10)
[2017-07-20] MEDS: THIAMINE 100 MG TAB PO SCH (09:10)
[2017-07-20] MEDS: NYSTATIN 100,000 UNITS/GM TOPICAL PWD 15 GM TOP SCH (09:10)
[2017-07-20 09:31] LABS: ALBUMIN/GLOBULIN RATIO 0.94 (1.00-1.93); ALKALINE PHOSPHATASE 155 U/L (45-117); ALT/SGPT 27 U/L (12-78); ANION GAP 9 MEQ/L (8-16); AST/SGOT 18 U/L (15-37); BILIRUBIN,TOTAL 0.2 MG/DL (0.2-1.0); BLOOD UREA NITROGEN 10 MG/DL (7-18); CALCIUM LEVEL 9.4 MG/DL (8.5-10.1); CARBON DIOXIDE LEVEL 24 MEQ/L (21-32); CHLORIDE LEVEL 107 MEQ/L (98-107); CREATININE FOR GFR 0.65 MG/DL (0.70-1.30); GLOMERULAR FILTRATION RATE > 60.0 (>56); GLUCOSE, FASTING 103 MG/DL (70-105); MAGNESIUM LEVEL 2.1 MG/DL (1.8-2.4); POTASSIUM SERUM 4.5 MEQ/L (3.5-5.1); SODIUM LEVEL 140 MEQ/L (136-145); TOTAL PROTEIN 6.2 GM/DL (6.4-8.2)
[2017-07-20 09:55] LABS: ADD MORPHOLOGY? YES; BASO # 0.1 K/mm3 (0.0-0.2); BASO % 0.7 % (0.0-1.0); EOS % 0.5 % (0.0-3.0); LARGE UNSTAINED CELL # 0.2 K/mm3 (0.0-0.4); LARGE UNSTAINED CELL % 1.9 % (0.0-4.0); LYMPH # 2.3 K/mm3 (1.5-4.5); LYMPH % 27.3 % (24.0-44.0); MEAN CORPUSCULAR HEMOGLOBIN 34.2 pg (27.0-33.0); MEAN CORPUSCULAR HGB CONC 32.7 g/dl (32.0-36.5); MEAN CORPUSCULAR VOLUME 104.7 fl (80.0-96.0); MONO # 1.2 K/mm3 (0.0-0.8); MONO % 15.2 % (0.0-5.0); NEUTROPHILS # 4.4 K/mm3 (1.8-7.7); NEUTROPHILS % 54.4 % (36.0-66.0); PLATELET COUNT, AUTOMATED 643 k/mm3 (150-450); RED CELL DISTRIBUTION WIDTH 17.3 % (11.5-14.5)
[2017-07-20 11:24] LABS: ANISOCYTOSIS 2+
[2017-07-20 11:25] LABS: POLYCHROMASIA 1+
--- NOTE | 2017-07-20 15:45 | DSES ---
DATE OF ADMISSION: 06/25/2017 DATE OF DISCHARGE: 07/20/2017 ATTENDING PHYSICIANS: 1. Dr. Chris Hurtado. 2. Dr. Sarah Pickett. 3. Dr. Zora Henry. 4. Dr. Oscar iMguel. PRIMARY CARE PROVIDER: Dr. Marquez REFERRING PHYSICIANS: None. CONSULTING PHYSICIANS: 1. Dr. Marquez. 2. Dr. Barrientos. CONDITION ON DISCHARGE: Guarded. FINAL DIAGNOSIS: Diarrhea possibly secondary to Clostridium (C) difficile colitis, possibly secondary to AIDS-related opportunistic infection. PROCEDURES: None. HISTORY OF PRESENT ILLNESS: The patient is a 52-year-old male with a past medical history of AIDS, pneumocystic pneumonia (PCP), oral candidiasis, chronic obstructive pulmonary disease (COPD), bronchitis, attention deficit hyperactivity disorder (ADHD), history of rib fracture, alcohol and tobacco abuse who presented to the emergency room (ER) with general malaise and diarrhea. He was found to have poor housing conditions prior to arrival. He was found to have Clostridium (C) difficile colitis and received treatment with vancomycin orally. The patient initially had improvement throughout the hospital course but then had deterioration after the completion of his vancomycin regimen. HOSPITAL COURSE: 1. Diarrhea, possibly secondary to Clostridium (C) difficile colitis, possibly secondary to AIDS-related opportunistic infection. Showed improvement in diarrhea initially but had worsened throughout subsequent hospital course. Gastrointestinal (GI) panel initially revealed enteropathogenic Escherichia (E) coli as well as Clostridium difficile A and B antigens. He was status post vancomycin oral, status post IV fluid hydration, continue with oral probiotic. Dr. Marquez was consulted. Dr. Barrientos was consulted late in the hospital course for a possible colonoscopy and the patient was scheduled to have colonoscopy on 07/21/2017 but the patient refused to have colonoscopy and decided to leave against medical advice on 07/20/2017. 2. AIDS. Recent CD4 greater than 600. Viral load is undetectable. Reports compliance with medication. Continue with Atripla. 3. Acute L1 compression fracture. Continue with back brace, not a surgical candidate. He follows with Dr. Juan Burroughs as an outpatient. 4. Stage II decubitus ulcers on buttocks. Continue with wound care. 5. Nicotine dependence. Continue with nicotine patch. 6. Status post electrolyte abnormalities. 7. Hypothyroidism. Continue with levothyroxine. 8. Protein-calorie malnutrition, body mass index (BMI) of 13. Continue with supplemental nutrition via Ensure. 9. Deep vein thrombosis (DVT) prophylaxis. Continue with sleeve compression devices. DISCHARGE INSTRUCTIONS: The patient was advised to remain in the hospital for continued medical treatment. However, the patient refused to stay in [facility] for continued medical treatment. He was advised of the risks involved with leaving against medical advice including worsening of his medical condition, worsening of disability, and possible . Despite this, the patient was adamant that he would leave and had decided to leave against medical advice. TIME SPENT ON DISCHARGE: Greater than 35 minutes.
[2017-07-20] MEDS ORDERED: GOLYTELY SOLN 4000 ML BTL PO ONE (18:00)
[2017-07-21] MEDS ORDERED: GOLYTELY SOLN 4000 ML BTL PO ONE (06:00)
== END 2017-07-20 13:51 | disposition left against medical advice (07) | DRG 892 ==
LOC: M ED 13:42 → EDBD 13:42 → M ED INP 17:36 → M PCU 20:35 → M MSPAV 06-29 16:26
PROVIDERS: ADMIT Internal Medicine; ATTEND Internal Medicine
PROC: 02HV33Z Insertion of Infusion Device into Superior Vena Cava, Percutaneous Approach (ICD-10-PCS; 2017-06-28)
PROC: 30233N1 Transfusion of Nonautologous Red Blood Cells into Peripheral Vein, Percutaneous Approach (ICD-10-PCS; principal; 2017-07-02)
DX: A04.7 Enterocolitis due to Clostridium difficile (principal); E43 Unspecified severe protein-calorie malnutrition; N17.9 Acute kidney failure, unspecified; E87.0 Hyperosmolality and hypernatremia; B20 Human immunodeficiency virus [HIV] disease; L89.302 Pressure ulcer of unspecified buttock, stage 2; D69.6 Thrombocytopenia, unspecified; R78.81 Bacteremia; L03.115 Cellulitis of right lower limb; J44.9 Chronic obstructive pulmonary disease, unspecified; E83.42 Hypomagnesemia; E83.51 Hypocalcemia; E83.39 Other disorders of phosphorus metabolism; F90.9 Attention-deficit hyperactivity disorder, unspecified type; F17.200 Nicotine dependence, unspecified, uncomplicated; E03.9 Hypothyroidism, unspecified; Z68.1 Body mass index [BMI] 19.9 or less, adult; F10.10 Alcohol abuse, uncomplicated; L03.317 Cellulitis of buttock; D53.9 Nutritional anemia, unspecified; M84.48XD Pathological fracture, other site, subsequent encounter for fracture with routine healing; B96.29 Other Escherichia coli [E. coli] as the cause of diseases classified elsewhere; E86.0 Dehydration

== ENCOUNTER → 2017-08-16 | Outpatient (REF) | payer OTHER ==
[~2017-08-16] MED LIST changes: +BOUDPST TOP; +DRIS50002 PO; +FERR1TAB8 PO; +FIRS1SOL3 PO; +FOLI1TAB4 PO; +KPHOS50TA PO; +LEVO75TA4 PO; +MAG400TA PO; +NICO14PA TD; +NYST10PW TOP; +RISATAB3 PO; +THIA100TA PO; +VITMTA PO
== END ==
LOC: M SFHCPLAZ 18:00
PROVIDERS: ATTEND Internal Medicine Infectious Disease
DX: A09 Infectious gastroenteritis and colitis, unspecified (principal)

== ENCOUNTER → 2017-08-25 | Outpatient (REF) | payer OTHER ==
[2017-08-25 17:54] LABS: ALBUMIN 3.4 GM/DL (3.2-5.2); ALBUMIN/GLOBULIN RATIO 1.21 (1.00-1.93); ALKALINE PHOSPHATASE 104 U/L (45-117); ALT/SGPT 25 U/L (12-78); ANION GAP 10 MEQ/L (8-16); AST/SGOT 19 U/L (15-37); BILIRUBIN,TOTAL 0.4 MG/DL (0.2-1.0); BLOOD UREA NITROGEN 14 MG/DL (7-18); CALCIUM LEVEL 9.3 MG/DL (8.5-10.1); CARBON DIOXIDE LEVEL 24 MEQ/L (21-32); CHLORIDE LEVEL 103 MEQ/L (98-107); CREATININE FOR GFR 0.61 MG/DL (0.70-1.30); GLOMERULAR FILTRATION RATE > 60.0 (>56); GLUCOSE, FASTING 75 MG/DL (70-105); POTASSIUM SERUM 4.2 MEQ/L (3.5-5.1); SODIUM LEVEL 137 MEQ/L (136-145); TOTAL PROTEIN 6.2 GM/DL (6.4-8.2)
[2017-08-31 00:08] LABS: Eosinophils 1 % (Not Estab.); HCT 34.6 % (37.5-51.0); HGB 10.8 g/dL (12.6-17.7); Monocytes 12 % (Not Estab.); Neutrophils 56 % (Not Estab.); WBC 10.1 x10E3/uL (3.4-10.8)
== END ==
LOC: M SFHCPLAZ 12:11
PROVIDERS: ATTEND Internal Medicine Infectious Disease
DX: B20 Human immunodeficiency virus [HIV] disease (principal)

== ENCOUNTER → 2018-04-10 | Outpatient (REF) | payer OTHER ==
[2018-04-10 13:33] LABS: ALBUMIN 3.9 GM/DL (3.2-5.2); ALBUMIN/GLOBULIN RATIO 1.22 (1.00-1.93); ALKALINE PHOSPHATASE 165 U/L (45-117); ALT/SGPT 67 U/L (12-78); ANION GAP 7 MEQ/L (8-16); AST/SGOT 104 U/L (7-37); BILIRUBIN,TOTAL 0.4 MG/DL (0.2-1.0); BLOOD UREA NITROGEN 16 MG/DL (7-18); CALCIUM LEVEL 9.1 MG/DL (8.5-10.1); CARBON DIOXIDE LEVEL 28 MEQ/L (21-32); CHLORIDE LEVEL 99 MEQ/L (98-107); GLOMERULAR FILTRATION RATE > 60.0 (>56); GLUCOSE, FASTING 94 MG/DL (70-100); POTASSIUM SERUM 4.3 MEQ/L (3.5-5.1); SODIUM LEVEL 134 MEQ/L (136-145); TOTAL PROTEIN 7.1 GM/DL (6.4-8.2)
[2018-04-11 14:13] LABS: % CD8 Pos Lymph 44.8 % (12.0-35.5); %CD4 Pos Lymphs 43.6 % (30.8-58.5); ABS Basophils 0.1 x10E3/uL (0.0-0.2); ABS Lymphs 1.4 x10E3/uL (0.7-3.1); ABS Monocytes 1.1 x10E3/uL (0.1-0.9); ABS Neutophils 6.2 x10E3/uL (1.4-7.0); Abs CD4 Helper 610 /uL (359-1519); Abs CD8 Suppres 627 /uL (109-897); CD4/CD8 Ratio 0.97 (0.92-3.72); Eosinophils 0 % (Not Estab.); HCT 42.8 % (37.5-51.0); HGB 15.4 g/dL (13.0-17.7); Immature Grans 0 % (Not Estab.); Lymphocytes 16 % (Not Estab.); MCH 36.5 pg (26.6-33.0); MCV 101 fL (79-97); Monocytes 12 % (Not Estab.); Neutrophils 71 % (Not Estab.); Platelets 218 x10E3/uL (150-379); RBC 4.22 x10E6/uL (4.14-5.80); RDW 15.7 % (12.3-15.4); WBC 8.8 x10E3/uL (3.4-10.8)
[2018-04-12 00:07] LABS: HIV-1 RNA PCR QUANT 2 LC550285 <20 copies/mL (.)
[2018-04-12 14:17] LABS: QUANTIFERON GOLD TB Negative (Negative); TB Test (QFT) Antigen 0.06 IU/mL (.); TB Test (QFT) Antigen Minus Ni <0.01 IU/mL (.); TB Test (QFT) Mitogen 7.48 IU/mL (.); TB Test (QFT) Nil 0.07 IU/mL (.)
== END ==
LOC: M SFHCPLAZ 09:24
DX: B20 Human immunodeficiency virus [HIV] disease (principal); Z11.3 Encounter for screening for infections with a predominantly sexual mode of transmission

== ENCOUNTER → 2018-10-09 | Outpatient (REF) | payer OTHER ==
[2018-10-09 13:05] LABS: ALKALINE PHOSPHATASE 80 U/L (45-117); ALT/SGPT 50 U/L (12-78); ANION GAP 7 MEQ/L (8-16); AST/SGOT 61 U/L (7-37); BLOOD UREA NITROGEN 14 MG/DL (7-18); CALCIUM LEVEL 9.3 MG/DL (8.5-10.1); CARBON DIOXIDE LEVEL 28 MEQ/L (21-32); CHLORIDE LEVEL 102 MEQ/L (98-107); GLOMERULAR FILTRATION RATE > 60.0 (>56); GLUCOSE, FASTING 76 MG/DL (70-100); POTASSIUM SERUM 4.2 MEQ/L (3.5-5.1); SODIUM LEVEL 137 MEQ/L (136-145)
[2018-10-09 13:06] LABS: ALBUMIN 3.8 GM/DL (3.2-5.2); ALBUMIN/GLOBULIN RATIO 1.06 (1.00-1.93); BILIRUBIN,TOTAL 0.2 MG/DL (0.2-1.0); TOTAL PROTEIN 7.4 GM/DL (6.4-8.2)
[2018-10-12 00:07] LABS: % CD8 Pos Lymph 40.7 % (12.0-35.5); %CD4 Pos Lymphs 41.1 % (30.8-58.5); ABS Eosinophils 0.1 x10E3/uL (0.0-0.4); ABS Lymphs 1.6 x10E3/uL (0.7-3.1); ABS Monocytes 1.5 x10E3/uL (0.1-0.9); ABS Neutophils 8.5 x10E3/uL (1.4-7.0); Abs CD4 Helper 658 /uL (359-1519); Abs CD8 Suppres 651 /uL (109-897); CD4/CD8 Ratio 1.01 (0.92-3.72); Eosinophils 0 % (Not Estab.); HCT 43.7 % (37.5-51.0); HGB 15.5 g/dL (13.0-17.7); HIV-1 RNA PCR QUANT 2 LC550285 449880 copies/mL (.); HIV-1 RNA PCR QUANT 3 LC550285 5.653 (.); Immature Grans 0 % (Not Estab.); Lymphocytes 14 % (Not Estab.); MCH 34.8 pg (26.6-33.0); MCHC 35.5 g/dL (31.5-35.7); MCV 98 fL (79-97); Monocytes 12 % (Not Estab.); Neutrophils 74 % (Not Estab.); Platelets 212 x10E3/uL (150-379); RBC 4.46 x10E6/uL (4.14-5.80); RDW 14.1 % (12.3-15.4); WBC 11.7 x10E3/uL (3.4-10.8)
== END ==
LOC: M SFHCPLAZ 08:10
DX: B20 Human immunodeficiency virus [HIV] disease (principal); Z12.11 Encounter for screening for malignant neoplasm of colon
CPT/HCPCS: 80053

== ENCOUNTER → 2018-11-09 | Outpatient (REF) | payer OTHER ==
[~2018-11-09] MED LIST changes: -DRIS50002 PO; +DRIS50003 PO; -FIRS1SOL3 PO; +FIRS50SO PO; +FOLI1TAB11 PO; -FOLI1TAB4 PO
[2018-11-09 12:37] LABS: ALBUMIN 3.7 GM/DL (3.2-5.2); ALT/SGPT 40 U/L (12-78); BILIRUBIN,TOTAL 0.4 MG/DL (0.2-1.0); BLOOD UREA NITROGEN 13 MG/DL (7-18); CALCIUM LEVEL 8.5 MG/DL (8.5-10.1); CARBON DIOXIDE LEVEL 25 MEQ/L (21-32); CHLORIDE LEVEL 98 MEQ/L (98-107); CREATININE FOR GFR 0.81 MG/DL (0.70-1.30); GLOMERULAR FILTRATION RATE > 60.0 (>56); GLUCOSE, FASTING 81 MG/DL (70-100); SODIUM LEVEL 133 MEQ/L (136-145); TOTAL PROTEIN 6.9 GM/DL (6.4-8.2)
[2018-11-14 00:07] LABS: HIV-1 RNA PCR QUANT 3 LC550285 2.462 (.)
== END ==
LOC: M SFHCPLAZ 08:03
PROVIDERS: ATTEND Internal Medicine Infectious Disease
DX: B20 Human immunodeficiency virus [HIV] disease (principal)

== ENCOUNTER → 2019-04-09 | Outpatient (REF) | payer OTHER ==
[~2019-04-09] MED LIST changes: +BIKT1TAB PO; +CHLO125TA PO; +MULTCAP PO; +NYST-15 TOP; -NYST10PW TOP; +PANT40TA3 PO; +STIO1AER INH; +SYMB80INH INH; +VENTAER INH; +[UNRECOGNIZED DRUG - OTHER]
[2019-04-09 09:52] LABS: AMORPHOUS SEDIMENT SMALL (NEGATIVE); APPEARANCE, URINE HAZY (CLEAR); BACTERIA, URINE AUTO 1+ (NEGATIVE); BILIRUBIN, URINE AUTO NEGATIVE (NEGATIVE); BLOOD, URINE BLOOD NEGATIVE (NEGATIVE); COLOR, URINE YELLOW (YELLOW); GLUCOSE, URINE (UA) AUTO NEGATIVE (NEGATIVE); KETONE, URINE AUTO NEGATIVE (NEGATIVE); LEUKOCYTE ESTERASE, URINE AUTO 2+ (NEGATIVE); MUCUS, URINE SMALL (NEGATIVE); NITRITE, URINE AUTO NEGATIVE (NEGATIVE); PROTEIN, URINE AUTO NEGATIVE (NEGATIVE); RBC, URINE AUTO 3 /HPF (0-3); SPECIFIC GRAVITY URINE AUTO 1.012 (1.002-1.035); SQUAMOUS EPITHELIAL CELL UR AU 0 /HPF (0-6); UROBILINOGEN, URINE AUTO 0.2 mg/dL (0.0-2.0); WBC, URINE AUTO 19 /HPF (0-3)
[2019-04-09 10:04] LABS: ALBUMIN 3.3 GM/DL (3.2-5.2); ALT/SGPT 15 U/L (12-78); BILIRUBIN,TOTAL 0.3 MG/DL (0.2-1.0); BLOOD UREA NITROGEN 12 MG/DL (7-18); CALCIUM LEVEL 8.9 MG/DL (8.5-10.1); CARBON DIOXIDE LEVEL 18 MEQ/L (21-32); CHLORIDE LEVEL 106 MEQ/L (98-107); CREATININE FOR GFR 0.88 MG/DL (0.70-1.30); GLOMERULAR FILTRATION RATE > 60.0 (>56); GLUCOSE, FASTING 90 MG/DL (70-100); PHOSPHORUS LEVEL 3.3 MG/DL (2.5-4.9); POTASSIUM SERUM 4.8 MEQ/L (3.5-5.1); SODIUM LEVEL 137 MEQ/L (136-145)
[2019-04-12 00:09] LABS: % CD8 Pos Lymph 40.3 % (12.0-35.5); %CD4 Pos Lymphs 44.3 % (30.8-58.5); ABS Basophils 0.1 x10E3/uL (0.0-0.2); ABS Eosinophils 0.1 x10E3/uL (0.0-0.4); ABS Monocytes 1.3 x10E3/uL (0.1-0.9); ABS Neutophils 4.9 x10E3/uL (1.4-7.0); Abs CD4 Helper 443 /uL (359-1519); Abs CD8 Suppres 403 /uL (109-897); Eosinophils 1 % (Not Estab.); HCT 16.3 % (37.5-51.0); HGB 4.3 g/dL (13.0-17.7); HIV-1 RNA PCR QUANT 2 LC550285 <20 copies/mL (.); Immature Grans 0 % (Not Estab.); Lymphocytes 14 % (Not Estab.); MCH 19.7 pg (26.6-33.0); MCHC 26.4 g/dL (31.5-35.7); MCV 75 fL (79-97); Monocytes 17 % (Not Estab.); NRBC 2 % (0 - 0); Neutrophils 67 % (Not Estab.); Platelets 565 x10E3/uL (150-450); RBC 2.18 x10E6/uL (4.14-5.80); RDW 20.5 % (12.3-15.4); WBC 7.3 x10E3/uL (3.4-10.8)
== END ==
LOC: M SFHCPLAZ 08:17
PROVIDERS: ATTEND Internal Medicine Infectious Disease
DX: B20 Human immunodeficiency virus [HIV] disease (principal); F10.10 Alcohol abuse, uncomplicated

== ENCOUNTER 2019-04-12 15:09 | Inpatient (IN) | payer OTHER ==
[2019-04-12] VITALS (8 sets, daily range): BP systolic 106–158; BP diastolic 60–103
[~2019-04-12] VITALS: Ht 157.5 cm; Wt 52.7 kg
[~2019-04-12 15:09] MED LIST changes: -BIKT1TAB PO; -CHLO125TA PO; -FERR325T18 PO; -MULTCAP PO; -PANT40TA3 PO; -PROT1TAB2 PO; -STIO1AER INH; -SYMB80INH INH; -VENTAER INH; -[UNRECOGNIZED DRUG - OTHER]
[2019-04-12 15:58] LABS: BASO % 0.3 % (0.0-1.0); EOS # 0.1 10^3/uL (0.0-0.50); HEMATOCRIT 15.2 % (42.0-52.0); LYMPH # 2.1 10^3/uL (1.5-4.5); MEAN CORPUSCULAR HEMOGLOBIN 21.1 pg (27.0-33.0); MEAN CORPUSCULAR HGB CONC 28.9 g/dl (32.0-36.5); MEAN CORPUSCULAR VOLUME 72.7 fl (80.0-96.0); MONO # 1.7 10^3/uL (0.0-0.8); MONO % 15.1 % (0.0-5.0); NEUTROPHILS # 7.1 10^3/uL (1.8-7.7); NEUTROPHILS % 63.7 % (36.0-66.0); PLATELET COUNT, AUTOMATED 483 10^3/uL (150-450); RED BLOOD COUNT 2.09 10^6/uL (4.30-6.10); WHITE BLOOD COUNT 11.2 10^3/uL (4.0-10.0)
[2019-04-12 16:08] LABS: HEMOGLOBIN 4.4 g/dl (13.5-17.5); INR 0.98; PROTHROMBIN TIME 13.1 SECONDS (12.1-14.4)
[2019-04-12 16:09] LABS: PARTIAL THROMBOPLASTIN TIME 26.4 SECONDS (25.4-37.6)
[2019-04-12] MEDS ORDERED: BIKT1TAB PO (16:13)
[2019-04-12] MEDS ORDERED: VENTAER INH (16:13)
[2019-04-12] MEDS ORDERED: PANT40TA3 PO (16:13)
[2019-04-12] MEDS ORDERED: IBUP-1022 PO (16:13)
[2019-04-12] MEDS ORDERED: STIO1AER INH (16:13)
[2019-04-12] MEDS ORDERED: SYMB80INH INH (16:13)
[2019-04-12] MEDS ORDERED: CHLO125TA PO (16:14)
[2019-04-12] MEDS ORDERED: MULTCAP PO (16:16)
[2019-04-12 16:33] LABS: ALBUMIN 3.4 GM/DL (3.2-5.2); ALT/SGPT 19 U/L (12-78); AMYLASE 65 U/L (25-115); BILIRUBIN,DIRECT 0.1 MG/DL (0.0-0.2); BILIRUBIN,TOTAL 0.2 MG/DL (0.2-1.0); CPK CREATINE PHOSPHOKINASE 40 U/L (39-308); LIPASE 131 U/L (73-393); MB/CK RELATIVE INDEX 2.75 (< OR =4); TOTAL PROTEIN 7.5 GM/DL (6.4-8.2); TROPONIN I < 0.02 NG/ML (< 0.10)
--- NOTE | 2019-04-12 16:51 | REP ---
Chest one-view HISTORY: Anemia Comparison: 06/25/2017 An irregular 2.4 cm parenchymal density is present in the left upper lobe. A minimal increase in interstitial markings is present in the lungs consistent with chronic interstitial change. The heart is normal in size. The pulmonary vasculature is normal in appearance. Impression: 1. There is an irregular 2.4 cm parenchymal density in the left upper lobe suspicious for a neoplasm. CT of the chest is recommended for further evaluation. 2. Chronic interstitial change. Electronically Signed by Joe Valladares MD 04/12/2019 04:42 P
[2019-04-12 17:27] LABS: BLOOD UREA NITROGEN 12 MG/DL (7-18); CARBON DIOXIDE LEVEL 22 MEQ/L (21-32); CHLORIDE LEVEL 92 MEQ/L (98-107); GLOMERULAR FILTRATION RATE > 60.0 (>56); GLUCOSE, FASTING 80 MG/DL (70-100); IRON (FE) 10 UG/DL (65-175); LDH LACTATE DEHYDROGENASE 149 U/L (87-241); PERCENT SATURATION 1.7 % (19.7-50.0); POTASSIUM SERUM 2.6 MEQ/L (3.5-5.1); SODIUM LEVEL 128 MEQ/L (136-145); TOTAL IRON BINDING CAPACITY 589 UG/DL (250-450)
[2019-04-12] MEDS ORDERED: LORazepam 2 MG/ML VIAL (J2060) IV PRN (17:30)
--- NOTE | 2019-04-12 17:32 | HPEPDOC ---
General Date of Admission Date of Service: Apr 12, 2019 Chief Complaint The patient is a 54-year-old male admitted with a reason for visit of Abnormal Labs. History of Present Illness 54 yo M with a history of HIV following his ID physician, chronic EtOH abuse, was seen by his ID physician (every 6 month), and his Hb was found to be very low. Therefore, the patient was sent to the ED for further work up. Of note, the patient has had chronic back pain, and he has taken ibuprofen once-twice for more than 3 years. He also drinks a large amount of EtOH, and the last time he drank was this afternoon. Of note, his Hb was found to be 4.4. MCV is 72. MCV in Oct 2018 was 98. The patient was consented for transfusion, and he is receiving transfusion. The patient is admitted for further medical management. Home Medications Scheduled Bictegrav/Emtricit/Tenofov Ala (Biktarvy 50-200-25 mg Tablet) 1 Each Tablet, 1 TAB PO DAILY, (Reported) Budesonide/Formoterol (Symbicort 80-4.5 Mcg Inhaler) 6.9 Gm Hfa.aer.ad, 2 PUFF INH BID, (Reported) Chlorthalidone (Chlorthalidone) 25 Mg Tablet, 25 MG PO DAILY, (Reported) PATIENT HAS NOT PICKED THIS UP FROM PHARMACY Ergocalciferol (Vitamin D2) (Drisdol) 50,000 Unit Cap, 50,000 UNIT PO QWEEK, (Reported) MONDAYS Multivitamin (Multivitamins) 1 Each Capsule, 1 CAP PO DAILY, (Reported) Pantoprazole Sodium (Pantoprazole Sodium) 40 Mg Tablet.dr, 40 MG PO DAILY, (Reported) Tiotropium Br/Olodaterol HCl (Stiolto Respimat Inhal [place]) 4 Gm Mist.inhal, 2 PUFFS INH DAILY, (Reported) Scheduled PRN Albuterol Sulfate (Ventolin Hfa) 18 Gm Hfa.aer.ad, 2 PUFF INH Q4H PRN for SHORT NESS OF BREATH, (Reported) Ibuprofen (Ibuprofen) 600 Mg Tablet, 600 MG PO Q6H PRN for PAIN, (Reported) Allergies Coded Allergies: abacavir (Verified Allergy, Unknown, rash, 04/12/19) Past Medical History Medical History HIV, chronic EtOH use Surgical History Back surgery? Family History he does not remember Social History * Smoker: former Smoker Alcohol: heavy Drugs: denies see above A-FIB/CHADSVASC A-FIB History Current/History of A-Fib/PAF?: No Review of Systems Constitutional: Reports: Malaise, Weakness, Fatigue Eyes: Denies: Pain, Vision change, Conjunctivae inflammation, Eyelid inflammation, Redness, Other ENT: Denies: Head Aches, Ear Pain, Dysphagia, Sinus Congestion, Post Nasal Drip, Sore Throat, Epistaxis, Other Symptoms Skin: Denies: Rash, Lesions, Jaundice, Bruising, Itching, Dry, Breakdown, Nail Changes, Other Pulmonary: Denies: Dyspnea, Cough, Pleuritic Chest Pain, Other Symptoms Cardiovascular: Reports: Palpitations Gastrointestinal: Denies: Nausea, Vomiting, Abdominal Pain, Diarrhea, Constipation, Melena, Hematochezia, Other Symptoms Genitourinary: Denies: Dysuria, Frequency, Incontinence, Hematuria, Retention, Other Symptoms Hematologic: Denies: Bruising, Bleeding Excessively, Petecchia, Purpura, Enlarged Lymph Nodes, Other Hematologic Endocrine: Denies: Polydipsia, Polyphagia, Polyuria, Heat Intolerance, Cold Intolerance, Other Endocrine Sx Musculoskeletal: Denies: Neck Pain, Back Pain, Shoulder Pain, Arm Pain, Hand Pain, Leg Pain, Foot Pain, Joint Pain, Muscle Pain, Spasms, Other Symptoms Neurological: Denies: Weakness, Numbness, Incoordination, Change in speech, Confusion, Seizures, Other Symptoms Psych: Denies: Mood Normal, Anxiety, Depression, Memory Issues, Thoughts of Self Harm, Anger, Thoughts of Harming Other, Other Psych Physical Examination General Exam: Positive: Alert Eye Exam: Positive: PERRLA ENT Exam: Positive: Atraumatic, Mucous membr. moist/pink Neck Exam: Positive: Supple Chest Exam: Positive: Clear to auscultation Heart Exam: Positive: Rate Normal Abdomen Exam: Positive: Normal bowel sounds Extremity Exam: Positive: Other (no edema) Skin Exam: Positive: Nl turgor and temperature Neuro Exam: Positive: Normal Gait Psych Exam: Positive: Mental status NL, Mood NL Vital Signs Vital Signs Date Time Temp Pulse Resp B/P (MAP) Pulse Ox O2 Delivery O2 Flow Rate FiO2 04/12/19 16:45 92 18 139/77 (97) 98 Room Air 04/12/19 16:30 97.3 Laboratory Data Labs 24H Laboratory Tests 2 04/12/19 15:42: Immature Granulocyte % (Auto) 0.9, White Blood Count 11.2H, Red Blood Count 2 .09L, Hemoglobin 4.4*L, Hematocrit 15.2L, Mean Corpuscular Volume 72.7L, Mean Corpuscular Hemoglobin 21.1L, Mean Corpuscular Hemoglobin Concent 28.9L, Red Cell Distribution Width 21.9H, Platelet Count 483H, Neutrophils (%) (Auto) 63.7, Lymphocytes (%) (Auto) 19.0L, Monocytes (%) (Auto) 15.1H, Eosinophils (%) (Auto) 1.0, Basophils (%) (Auto) 0.3, Neutrophils # (Auto) 7.1, Lymphocytes # (Auto) 2.1, Monocytes # (Auto) 1.7H, Eosinophils # (Auto) 0.1, Basophils # (Auto) 0.0, Nucleated Red Blood Cells % (auto) 2.4H, Prothrombin Time 13.1, Prothromb Time International Ratio 0.98, Activated Partial Thromboplast Time 26.4, Lactic Acid Level 5.6*H, Aspartate Amino Transf (AST/SGOT) 15, Alanine Aminotransferase (ALT/SGPT) 19, Alkaline Phosphatase 73, Total Bilirubin 0.2, Direct Bilirubin 0.1, Total Creatine Kinase 40, Creatine Kinase MB 1.0, Creatine Kinase MB Relative Index 2.75, Troponin I < 0.02, Total Protein 7.5, Albumin 3.4, Albumin/Globulin Ratio 0.83L, Amylase Level 65, Lipase 131 CBC/BMP Laboratory Tests 04/12/19 15:42 Red Blood Count 2.09 L, Mean Corpuscular Volume 72.7 L, Mean Corpuscular Hemoglobin 21.1 L, Mean Corpuscular Hemoglobin Concent 28.9 L, Red Cell D istribution Width 21.9 H, Neutrophils (%) (Auto) 63.7, Lymphocytes (%) (Auto) 19.0 L, Monocytes (%) (Auto) 15.1 H, Eosinophils (%) (Auto) 1.0, Basophils (%) (Auto) 0.3, Neutrophils # (Auto) 7.1, Lymphocytes # (Auto) 2.1, Monocytes # (Auto) 1.7 H, Eosinophils # (Auto) 0.1, Basophils # (Auto) 0.0 Microbiology Microbiology 04/12/19 Blood Culture, Received Pending 04/12/19 Blood Culture, Received Pending Problems (1) Severe anemia Problem Text: # Severe microcytic anemia and thrombocytosis - This seems to be GI bleeding. His MCV was 98 in Oct 2018, and currently, it is 72. Given minimal symptoms except for shortness of breath on exertion, this seems to be compensated chronic GI bleeding. He has taken ibuprofen and drank EtOH chronically, and this is likely the reason for this. - However, will also r/o hemolysis. Also follow anemia work up. - Will be admitted to PCU for close follow up. - Tranfusion. Follow repeat H/H. - Spoke with Dr. Barrientos, GI physician, and the patient will likely have EGD over the weekend. - Cont. protonix IV BID. # EtOH - Follow EtOH level. - Ativan 2 mg IV q2h PRN withdrawal - close vital sign monitor - CIWA - Cont. multivitamin, folic acid, and thiamine # HIV - Cont. home medication Plan / VTE VTE Prophylaxis Ordered?: No (GI bleeding) RAD NIX MD Apr 12, 2019 17:32
[2019-04-12] MEDS ORDERED: [UNRECOGNIZED DRUG - OTHER] (17:50)
[2019-04-12 17:51] LABS: AMPHETAMINES LEVEL URINE NEGATIVE (NEGATIVE); BARBITURATES URINE NEGATIVE (NEGATIVE); BENZODIAZEPINES URINE NEGATIVE (NEGATIVE); CANNABINOIDS URINE NEGATIVE (NEGATIVE); COCAINE METABOLITE URINE NEGATIVE (NEGATIVE); METHADONE URINE NEGATIVE (NEGATIVE); OPIATES URINE NEGATIVE (NEGATIVE); PHENCYCLIDINE URINE NEGATIVE (NEGATIVE)
[2019-04-12] MEDS: PANTOPRAZOLE 40MG INJ (PROTONIX) (C9113) IV SCH (18:56)
[2019-04-12] MEDS: ACETAMINOPHEN TAB 650MG DOSE (2X325MG) PO PRN (18:56)
[2019-04-12] MEDS ORDERED: POTASSIUM CHLORIDE 10 MEQ SR TABLET PO ONE ×3 (19:30→21:30)
[2019-04-12 19:37] LABS: ETHYL ALCOHOL (ETHANOL) 0.056 % (0.000-0.010)
[2019-04-12 20:33] LABS: FOLATE 11.7 NG/ML (>5.4)
--- NOTE | 2019-04-12 21:25 | CR ---
DATE OF CONSULTATION: 04/12/2019 STATUS: Inpatient. REQUESTING PHYSICIAN; Hospitalist service. REASON FOR CONSULTATION: Symptomatic anemia. HISTORY OF PRESENT ILLNESS Mr. Valentino Reilly is a 54-year-old gentleman with a history of HIV disease on medications. He is also an alcoholic who on routine blood work was found to have a markedly depressed hemoglobin of 4 with a low MCV. The patient does feel somewhat weak and easily tires when walking around, however, denies any chest pain, palpitations, abdominal pain, nausea or vomiting. His stool is normal brown. He was asked by his primary care doctor to proceed to the emergency room for further evaluation of his new profound anemia. MEDICATIONS AT HOME: - Biktarvy - Symbicort - chlorthalidone - Drisdol - multivitamins - pantoprazole - Stiolto Respimat PAST MEDICAL HISTORY HIV disease, alcoholism and chronic back pain. PAST SURGICAL HISTORY Back surgery. FAMILY HISTORY Negative for colorectal carcinoma, inflammatory bowel disease. SOCIAL HISTORY: Positive for multiple alcoholic beverages per day. Positive for tobacco. REVIEW OF SYSTEMS General: Positive for weakness and fatigue. Cardiac: Negative for orthopnea, paroxysmal nocturnal dyspnea (PND). Negative for palpitations. Pulmonary: Negative for hemoptysis, pleuritic-type chest pain. GI: Negative for melena, hematochezia or hematemesis. : Negative for hematuria. Musculoskeletal: Positive for chronic back pain and spasms. Neurological: Negative for focal numbness or weakness. ALLERGIES TO MEDICATIONS: ABACAVIR. PHYSICAL EXAMINATION: He is awake, alert and oriented times three. He is in no acute distress. He appears comfortably in bed. Head, eyes, ears, nose and throat: Grossly without abnormality. There is no oral thrush. Neck is negative for lymphadenopathy. Chest is coarse distant breath sounds. Occasional scattered wheezing on expiratory phase. Abdomen is soft, nontender. Positive bowel sounds. No masses palpable. Extremities: Negative for edema. Rectal: Examination deferred. LABORATORY FINDINGS Sodium 128, potassium 2.6, chloride 92, BUN 12, creatinine 1.1, iron saturation 1.7%, TIBC 589, platelet count is 483, hemoglobin 4.4, MCV 72, RDW 21.9, retic count of 2.3. IMPRESSION Microcytic anemia of relatively new onset. Previous hemoglobin on 10/09/2018 15.5 with normal indices. RECOMMENDATIONS Upper endoscopy and colonoscopy while the patient is in the hospital after he has been sufficiently transfused to undergo these procedures. DISCUSSION I discussed plans with this patient and my recommendations, however, he quite vehemently refuses the colonoscopy. I told him that I would return tomorrow to discuss further and that we could do the upper endoscopy only however, this would clearly be in inadequate examination. The patient does want to think about it overnight and he will let us know tomorrow so that we can prepare for evaluations. ADDENDUM: 04/13/19 7:25 am and 19:00 pm I spoke with patient twice more today about the need to do inpatient completion of GI evaluations. He quite vehemently refuses and is going home tonight or tomorrow morning no matter what. Pt has been made aware of the risks of leaving without GI evaluation, but he insists that he would not have Upper endoscopy nor Colonoscopy done. I will at this time sign off. Should he change his mind, Please call me. Otherwise he can follow up with me as outpatient if desired. [email or web address]
[2019-04-13 04:00] VITALS: BP 122/70
[2019-04-13 04:30] VITALS: BP 122/70
[2019-04-13 07:32] LABS: HEMATOCRIT 21.6 % (42.0-52.0); MEAN CORPUSCULAR HEMOGLOBIN 24.3 pg (27.0-33.0); MEAN CORPUSCULAR VOLUME 78.3 fl (80.0-96.0); PLATELET COUNT, AUTOMATED 386 10^3/uL (150-450); RED BLOOD COUNT 2.76 10^6/uL (4.30-6.10); WHITE BLOOD COUNT 9.5 10^3/uL (4.0-10.0)
[2019-04-13 07:52] LABS: HEMOGLOBIN 6.7 g/dl (13.5-17.5)
[2019-04-13 08:00] VITALS: BP 128/68
[2019-04-13 08:12] LABS: ALBUMIN 2.9 GM/DL (3.2-5.2); ALT/SGPT 14 U/L (12-78); BILIRUBIN,TOTAL 0.7 MG/DL (0.2-1.0); BLOOD UREA NITROGEN 9 MG/DL (7-18); CALCIUM LEVEL 8.5 MG/DL (8.5-10.1); CARBON DIOXIDE LEVEL 25 MEQ/L (21-32); CHLORIDE LEVEL 105 MEQ/L (98-107); CREATININE FOR GFR 0.81 MG/DL (0.70-1.30); GLOMERULAR FILTRATION RATE > 60.0 (>56); GLUCOSE, FASTING 84 MG/DL (70-100); MAGNESIUM LEVEL 2.1 MG/DL (1.8-2.4); POTASSIUM SERUM 3.6 MEQ/L (3.5-5.1); SODIUM LEVEL 137 MEQ/L (136-145); TOTAL PROTEIN 6.5 GM/DL (6.4-8.2)
[2019-04-13] MEDS: MULTIVITAMINS/MINERALS THERAP 1 TAB PO SCH (08:28)
[2019-04-13] MEDS: PANTOPRAZOLE 40MG INJ (PROTONIX) (C9113) IV SCH (08:28)
[2019-04-13] MEDS: THIAMINE 100 MG TAB PO SCH (08:28)
[2019-04-13] MEDS: FOLIC ACID 1 MG TAB PO SCH (08:28)
[2019-04-13] MEDS: NICOTINE 21MG/24HR 1 EA TRANSDERMAL TD SCH (09:00)
[2019-04-13] MEDS: ACETAMINOPHEN TAB 650MG DOSE (2X325MG) PO PRN ×2 (09:54→22:56)
[2019-04-13] MEDS ORDERED: IRON SUCROSE 100MG 5ML VIAL (J1756 PER 1MG) IV ONE (13:30)
[2019-04-13] MEDS ORDERED: IRON SUCROSE 100 MG in NS 100 ML OVER 1 HR IV ONE (16:00)
[2019-04-13] MEDS: FERROUS SULFATE 325MG TAB PO SCH ×2 (16:12→22:40)
[2019-04-13 17:38] LABS: HEMATOCRIT 31.4 % (42.0-52.0); HEMOGLOBIN 9.9 g/dl (13.5-17.5); MEAN CORPUSCULAR HEMOGLOBIN 25.1 pg (27.0-33.0); MEAN CORPUSCULAR HGB CONC 31.5 g/dl (32.0-36.5); MEAN CORPUSCULAR VOLUME 79.7 fl (80.0-96.0); PLATELET COUNT, AUTOMATED 253 10^3/uL (150-450); RED BLOOD COUNT 3.94 10^6/uL (4.30-6.10); WHITE BLOOD COUNT 11.5 10^3/uL (4.0-10.0)
[2019-04-13 20:00] VITALS: BP 114/72
--- NOTE | 2019-04-13 21:20 | IPNPDOC ---
Subjective Date Seen The patient was seen on 04/13/19. Subjective Chief Complaint/HPI The patient wants to smoke cigarretts. He refuses any medical treatment except for transfusion without letting him smoke. Denies pain or blood in stool. General: Denies: ROS Unobtainable, Chills, Night Sweats, Fatigue, Malaise, Normal Appetite, Other Symptoms Constitutional: Denies: Chills, Fever, Malaise, Night Sweats, Weakness, Fatigue, Weight Loss, Lethargy, Other Eyes: Denies: Pain, Vision change, Conjunctivae inflammation, Eyelid inflammation, Redness, Other ENT: Denies: Head Aches, Ear Pain, Dysphagia, Sinus Congestion, Post Nasal Drip, Sore Throat, Epistaxis, Other Symptoms Skin: Denies: Rash, Lesions, Jaundice, Bruising, Itching, Dry, Breakdown, Nail Changes, Other Pulmonary: Denies: Dyspnea, Cough, Pleuritic Chest Pain, Other Symptoms Cardiovascular: Denies: Chest Pain, Palpitations, Orthopnea, Paroxysmal Noc. Dyspnea, Edema, Lt Headedness, Other Symptoms Gastrointestinal: Denies: Nausea, Vomiting, Abdominal Pain, Diarrhea, Constipation, Melena, Hematochezia, Other Symptoms Genitourinary: Denies: Dysuria, Frequency, Incontinence, Hematuria, Retention, Other Symptoms Hematologic: Denies: Bruising, Bleeding Excessively, Petecchia, Purpura, Enlarged Lymph Nodes, Other Hematologic Endocrine: Denies: Polydipsia, Polyphagia, Polyuria, Heat Intolerance, Cold Intolerance, Other Endocrine Sx Musculoskeletal: Denies: Neck Pain, Back Pain, Shoulder Pain, Arm Pain, Hand Pain, Leg Pain, Foot Pain, Joint Pain, Muscle Pain, Spasms, Other Symptoms Neurological: Denies: Weakness, Numbness, Incoordination, Change in speech, Confusion, Seizures, Other Symptoms Psych: Denies: Mood Normal, Anxiety, Depression, Memory Issues, Thoughts of Self Harm, Anger, Thoughts of Harming Other, Other Psych Objective Physical Examination General Exam: Positive: Alert Eye Exam: Positive: PERRLA ENT Exam: Positive: Atraumatic, Mucous membr. moist/pink Neck Exam: Positive: Supple Chest Exam: Positive: Clear to auscultation Heart Exam: Positive: Rate Normal Abdomen Exam: Positive: Normal bowel sounds Extremity Exam: Positive: Other (no edema) Skin Exam: Positive: Nl turgor and temperature Neuro Exam: Positive: Normal Gait Psych Exam: Positive: Mental status NL, Mood NL Assessment /Plan Problems (1) Severe anemia Problem Text: # Severe iron deficiency anemia and thrombocytosis - Anemia work up confirms severe iron deficiency anemia. He received another 2 units of pRBC today. Will start PO ferrous sulfate and one IV iron today. - The patient wants to think about EGD, but currently, he does not want it because he is not able to smoke cigarretts. Will talk to him again tomorrow. - Cont. protonix IV BID. # EtOH - Ativan 2 mg IV q2h PRN withdrawal - close vital sign monitor - CIWA - Cont. multivitamin, folic acid, and thiamine # HIV - Cont. home medication Plan/VTE VTE Prophylaxis Ordered?: No (GI bleeding) VTE Exclusion Mechanical Proph: Other VTE Exclusion Pharmacological: Bleeding Risk VS, I&O, 24H, Fishbone Vital Signs/I&O Vital Signs Date Time Temp Pulse Resp B/P (MAP) Pulse Ox O2 Delivery O2 Flow Rate FiO2 04/13/19 20:00 98.4 95 20 114/72 (86) 97 04/12/19 16:45 Room Air I&O- Last 24 Hours up to 6 AM 04/13/19 06:00 Intake Total 740 ml Output Total 1950 ml Balance -1210 ml Laboratory Data 24H LABS Laboratory Tests 2 04/13/19 07:16: Nucleated Red Blood Cells % (auto) 0.9H, Anion Gap 7L, Glomerular Filtration Rate > 60.0, Blood Urea Nitrogen 9, Creatinine 0.81, Sodium Level 137#, Potassium Level 3.6#, Chloride Level 105, Carbon Dioxide Level 25, Calcium Level 8.5, Aspartate Amino Transf (AST/SGOT) 13, Alanine Aminotransferase (ALT/SGPT) 14, Alkaline Phosphatase 63, Total Bilirubin 0.7#, Total Protein 6.5, Albumin 2.9L, Magnesium Level 2.1, Albumin/Globulin Ratio 0.81L 04/13/19 17:24: Nucleated Red Blood Cells % (auto) 1.5H CBC/BMP Laboratory Tests 04/13/19 07:16 Red Blood Count 2.76 L, Mean Corpuscular Volume 78.3 L, Mean Corpuscular Hemoglobin 24.3 L, Mean Corpuscular Hemoglobin Concent 31.0 L, Red Cell Distribution Width 23.3 H, Calcium Level 8.5, Aspartate Amino Transf (AST/SGOT) 13, Alanine Aminotransferase (ALT/SGPT) 14, Alkaline Phosphatase 63, Total Bilir ubin 0.7 #, Total Protein 6.5, Albumin 2.9 L 04/13/19 17:24 Red Blood Count 3.94 L, Mean Corpuscular Volume 79.7 L, Mean Corpuscular Hemoglobin 25.1 L, Mean Corpuscular Hemoglobin Concent 31.5 L, Red Cell Distribution Width 20.3 H Microbiology Microbiology 04/12/19 Blood Culture - Preliminary, Resulted No growth after 24 hours . All specim... 04/12/19 Blood Culture - Preliminary, Resulted No growth after 24 hours . All specim... RAD NIX MD Apr 13, 2019 21:20
[2019-04-13] MEDS: BIKTARVY PO SCH (22:40)
[2019-04-14] VITALS: BP 129/64
[2019-04-14] MEDS: PANTOPRAZOLE 40MG INJ (PROTONIX) (C9113) IV SCH ×2 (01:00→09:00)
[2019-04-14 04:00] VITALS: BP 105/58
[2019-04-14 07:57] VITALS: BP 139/75
[2019-04-14 08:01] LABS: HEMATOCRIT 32.4 % (42.0-52.0); HEMOGLOBIN 10.3 g/dl (13.5-17.5); MEAN CORPUSCULAR HEMOGLOBIN 25.1 pg (27.0-33.0); MEAN CORPUSCULAR HGB CONC 31.8 g/dl (32.0-36.5); PLATELET COUNT, AUTOMATED 337 10^3/uL (150-450); WHITE BLOOD COUNT 9.1 10^3/uL (4.0-10.0)
--- NOTE | 2019-04-14 08:12 | ECGEPIP ---
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
[2019-04-14 08:35] LABS: ALT/SGPT 18 U/L (12-78); BILIRUBIN,TOTAL 0.5 MG/DL (0.2-1.0); BLOOD UREA NITROGEN 11 MG/DL (7-18); CALCIUM LEVEL 8.7 MG/DL (8.5-10.1); CARBON DIOXIDE LEVEL 24 MEQ/L (21-32); CHLORIDE LEVEL 106 MEQ/L (98-107); FERRITIN 254 NG/ML (26-388); GLOMERULAR FILTRATION RATE > 60.0 (>56); GLUCOSE, FASTING 81 MG/DL (70-100); POTASSIUM SERUM 3.9 MEQ/L (3.5-5.1); SODIUM LEVEL 137 MEQ/L (136-145); TOTAL PROTEIN 6.3 GM/DL (6.4-8.2)
[2019-04-14] MEDS: FOLIC ACID 1 MG TAB PO SCH (09:00)
[2019-04-14] MEDS: NICOTINE 21MG/24HR 1 EA TRANSDERMAL TD SCH (09:00)
[2019-04-14] MEDS: THIAMINE 100 MG TAB PO SCH (09:00)
[2019-04-14] MEDS: BIKTARVY PO SCH (09:00)
[2019-04-14] MEDS: FERROUS SULFATE 325MG TAB PO SCH (09:00)
[2019-04-14] MEDS: MULTIVITAMINS/MINERALS THERAP 1 TAB PO SCH (09:00)
[2019-04-14] MEDS ORDERED: PROT1TAB2 PO (09:03)
[2019-04-14] MEDS ORDERED: FERR325T18 PO (09:03)
--- NOTE | 2019-04-14 14:57 | DS.PDOC ---
Discharge Summary General Date of Admission Apr 12, 2019 at 17:16 Date of Discharge 04/14/2019 Discharge Summary PROCEDURES PERFORMED DURING STAY: [None]. ADMITTING DIAGNOSES: 1. Severe anemia. DISCHARGE DIAGNOSES: 1. GI bleeding and iron deficiency anemia. COMPLICATIONS/CHIEF COMPLAINT: Severe Anemia. HISTORY OF PRESENT ILLNESS: 54 yo M with a history of HIV following his ID physician, chronic EtOH abuse, was seen by his ID physician (every 6 month), and his Hb was found to be very low. Therefore, the patient was sent to the ED for further work up. Of note, the patient has had chronic back pain, and he has taken ibuprofen once-twice for more than 3 years. He also drinks a large amount of EtOH, and the last time he drank was this afternoon. Of note, his Hb was found to be 4.4. MCV is 72. MCV in Oct 2018 was 98. The patient was consented for transfusion, and he is receiving transfusion. The patient is admitted for further medical management. HOSPITAL COURSE: The patient was found to have severe iron deficiency anemia and thrombocytosis. Anemia work up confirms severe iron deficiency anemia. He has taken ibuprofen for more than 3 years for his back pain, and this seems to be the culprit. He received another 2 units of pRBC on the day of admission and [address] Barrientos GI physician recommended EGD, but the patient refused. He was started on ferrous sulfate, and he also received one dose of IV iron. Protonix IV BID was continued. On the day of discharge, the patient still refused EGD. Therefore, the patient is discharged with GI follow up. Dr. Barrientos's office contact information was provided. Protonix BID PO was prescribed to his pharmacy. His EtOH level was elevated. Ativan 2 mg IV q2h PRN withdrawal was maintained. For HIV, his home medication was continued in the hospital. DISCHARGE MEDICATIONS: Please see below. ALLERGIES: Please see below. PHYSICAL EXAMINATION ON DISCHARGE: VITAL SIGNS: Please see below. General Exam: Positive: Alert Eye Exam: Positive: PERRLA ENT Exam: Positive: Atraumatic, Mucous membr. moist/pink Neck Exam: Positive: Supple Chest Exam: Positive: Clear to auscultation Heart Exam: Positive: Rate Normal Abdomen Exam: Positive: Normal bowel sounds Extremity Exam: Positive: Other (no edema) Skin Exam: Positive: Nl turgor and temperature Neuro Exam: Positive: Normal Gait Psych Exam: Positive: Mental status NL, Mood NL LABORATORY DATA: Please see below. DISCHARGE PLAN: Follow up with Dr. Barrientos's office within 1 week. The contact information was provided for the patient. He verbally mentioned that he will schedule an appointment on Tuesday. DISPOSITION: Home, Self-Care. Vital Signs/I&Os Vital Signs Date Time Temp Pulse Resp B/P (MAP) Pulse Ox O2 Delivery O2 Flow Rate FiO2 04/14/19 07:57 99.0 82 20 139/75 (96) 91 04/14/19 07:43 Room Air I&O- Last 24 Hours up to 6 AM 04/14/19 06:00 Intake Total 580 ml Output Total 1050 ml Balance -470 ml Laboratory Data Labs 24H Laboratory Tests 2 04/13/19 17:24: Nucleated Red Blood Cells % (auto) 1.5H 04/14/19 07:52: Nucleated Red Blood Cells % (auto) 1.5H, Anion Gap 7L, Glomerular Filtration Rate > 60.0, Blood Urea Nitrogen 11, Creatinine 0.80, Sodium Level 137, Potassium Level 3.9, Chloride Level 106, Carbon Dioxide Level 24, Calcium Level 8.7, Aspartate Amino Transf (AST/SGOT) 20, Alanine Aminotransferase (ALT/SGPT) 18, Alkaline Phosphatase 68, Total Bilirubin 0.5, Total Protein 6.3L, Albumin 3.0L, Ferritin 254, Albumin/Globulin Ratio 0.91L CBC/BMP Laboratory Tests 04/13/19 17:24 Red Blood Count 3.94 L, Mean Corpuscular Volume 79.7 L, Mean Corpuscular Hemoglobin 25.1 L, Mean Corpuscular Hemoglobin Concent 31.5 L, Red Cell Distribution Width 20.3 H 04/14/19 07:52 Red Blood Count 4.10 L, Mean Corpuscular Volume 79.0 L, Mean Corpuscular Hemoglobin 25.1 L, Mean Corpuscular Hemoglobin Concent 31.8 L, Red Cell Distribution Width 20.6 H, Calcium Level 8.7, Aspartate Amino Transf (AST/SGOT) 20, Alanine Aminotransferase (ALT/SGPT) 18, Alkaline Phosphatase 68, Total Bilirubin 0.5, Total Protein 6.3 L, Albumin 3.0 L Microbiology Microbiology 04/12/19 Blood Culture - Preliminary, Resulted 04/12/19 Blood Culture - Preliminary, Resulted No growth after 24 hours . All specim... Discharge Medications Scheduled Bictegrav/Emtricit/Tenofov Ala (Biktarvy 50-200-25 mg Tablet) 1 Each Tablet, 1 TAB PO DAILY, (Reported) Budesonide/Formoterol (Symbicort 80-4.5 Mcg Inhaler) 6.9 Gm Hfa.aer.ad, 2 PUFF INH BID, (Reported) Chlorthalidone (Chlorthalidone) 25 Mg Tablet, 25 MG PO DAILY, (Reported) PATIENT HAS NOT PICKED THIS UP FROM PHARMACY Ergocalciferol (Vitamin D2) (Drisdol) 50,000 Unit Cap, 50,000 UNIT PO QWEEK, (Reported) MONDAYS Ferrous Sulfate (Ferrous Sulfate) 325 Mg Tablet, 325 MG PO BID Multivitamin (Multivitamins) 1 Each Capsule, 1 CAP PO DAILY, (Reported) Pantoprazole Sodium (Protonix) 40 Mg Tablet.dr, 40 MG PO BID Tiotropium Br/Olodaterol HCl (Stiolto Respimat Inhal [place]) 4 Gm Mist.inhal, 2 PUFFS INH DAILY, (Reported) Scheduled PRN Albuterol Sulfate (Ventolin Hfa) 18 Gm Hfa.aer.ad, 2 PUFF INH Q4H PRN for SHORTNESS OF BREATH, (Reported) Miscellaneous Medications [pharmacy comment] , (Reported) MED LIST OBTAINED FROM PHARMACY Allergies Coded Allergies: abacavir (Verified Allergy, Unknown, rash, 04/12/19) RAD NIX MD Apr 14, 2019 14:57
== END 2019-04-14 10:03 | disposition home or self-care (01) | DRG 663 ==
LOC: M ED 15:09 → M ED INP 17:16
PROVIDERS: ADMIT Internal Medicine; ATTEND Internal Medicine
PROC: 30233N1 Transfusion of Nonautologous Red Blood Cells into Peripheral Vein, Percutaneous Approach (ICD-10-PCS; principal; 2019-04-12)
DX: D50.9 Iron deficiency anemia, unspecified (principal); F10.20 Alcohol dependence, uncomplicated; Z79.899 Other long term (current) drug therapy; Z88.8 Allergy status to other drugs, medicaments and biological substances; Z21 Asymptomatic human immunodeficiency virus [HIV] infection status

== ENCOUNTER → 2019-04-12 | Outpatient (CLI) | payer OTHER ==
[~2019-04-12] MED LIST changes: +FERR325T18 PO; +PROT1TAB2 PO
[2019-04-12 13:38] LABS: BASO % 0.3 % (0.0-1.0); EOS # 0.1 10^3/uL (0.0-0.50); EOS % 0.7 % (0.0-3.0); HEMATOCRIT 14.4 % (42.0-52.0); LYMPH % 18.8 % (24.0-44.0); MEAN CORPUSCULAR HEMOGLOBIN 20.8 pg (27.0-33.0); MEAN CORPUSCULAR HGB CONC 29.2 g/dl (32.0-36.5); MEAN CORPUSCULAR VOLUME 71.3 fl (80.0-96.0); MONO # 1.7 10^3/uL (0.0-0.8); MONO % 16.4 % (0.0-5.0); NEUTROPHILS # 6.5 10^3/uL (1.8-7.7); NEUTROPHILS % 62.9 % (36.0-66.0); PLATELET COUNT, AUTOMATED 477 10^3/uL (150-450); RED BLOOD COUNT 2.02 10^6/uL (4.30-6.10); WHITE BLOOD COUNT 10.4 10^3/uL (4.0-10.0)
[2019-04-12 13:44] LABS: HEMOGLOBIN 4.2 g/dl (13.5-17.5)
== END ==
LOC: M LAB 13:14
PROVIDERS: ATTEND Internal Medicine Infectious Disease
DX: D64.9 Anemia, unspecified (principal)

== ENCOUNTER → 2019-05-21 | Outpatient (REF) | payer OTHER ==
[~2019-05-21] MED LIST changes: +BIKT1TAB PO; +CHLO125TA PO; +FERR325T18 PO; +MULTCAP PO; +PANT40TA3 PO; +PROT1TAB2 PO; +STIO1AER INH; +SYMB80INH INH; +VENTAER INH; +[UNRECOGNIZED DRUG - OTHER]
[2019-05-21 11:55] LABS: BASO # 0.1 10^3/uL (0.0-0.2); EOS # 0.1 10^3/uL (0.0-0.50); EOS % 1.1 % (0.0-3.0); HEMATOCRIT 41.2 % (42.0-52.0); HEMOGLOBIN 13.2 g/dl (13.5-17.5); LYMPH # 1.4 10^3/uL (1.5-4.5); LYMPH % 17.2 % (24.0-44.0); MEAN CORPUSCULAR HEMOGLOBIN 28.3 pg (27.0-33.0); MEAN CORPUSCULAR VOLUME 88.4 fl (80.0-96.0); MONO # 1.1 10^3/uL (0.0-0.8); MONO % 13.3 % (0.0-5.0); NEUTROPHILS # 5.5 10^3/uL (1.8-7.7); NEUTROPHILS % 66.9 % (36.0-66.0); PLATELET COUNT, AUTOMATED 197 10^3/uL (150-450); RED BLOOD COUNT 4.66 10^6/uL (4.30-6.10); WHITE BLOOD COUNT 8.3 10^3/uL (4.0-10.0)
== END ==
LOC: M SFHCPLAZ 08:33
PROVIDERS: ATTEND Internal Medicine Infectious Disease
DX: D50.0 Iron deficiency anemia secondary to blood loss (chronic) (principal)

== ENCOUNTER → 2019-09-25 | Outpatient (REF) | payer OTHER ==
[2019-09-25 12:10] LABS: ALBUMIN 3.7 GM/DL (3.2-5.2); ALT/SGPT 31 U/L (12-78); BILIRUBIN,TOTAL 0.8 MG/DL (0.2-1.0); BLOOD UREA NITROGEN 9 MG/DL (7-18); CALCIUM LEVEL 9.6 MG/DL (8.5-10.1); CARBON DIOXIDE LEVEL 28 MEQ/L (21-32); CHLORIDE LEVEL 93 MEQ/L (98-107); CREATININE FOR GFR 0.87 MG/DL (0.70-1.30); GLOMERULAR FILTRATION RATE > 60.0 (>56); GLUCOSE, FASTING 87 MG/DL (70-100); IRON (FE) 204 UG/DL (65-175); PERCENT SATURATION 65.8 % (19.7-50.0); POTASSIUM SERUM 2.8 MEQ/L (3.5-5.1); SODIUM LEVEL 133 MEQ/L (136-145); TOTAL IRON BINDING CAPACITY 310 UG/DL (250-450); TOTAL PROTEIN 7.2 GM/DL (6.4-8.2)
[2019-09-28 00:07] LABS: % CD8 Pos Lymph 50.9 % (12.0-35.5); %CD4 Pos Lymphs 34.2 % (30.8-58.5); ABS Lymphs 1.9 x10E3/uL (0.7-3.1); ABS Monocytes 1.1 x10E3/uL (0.1-0.9); ABS Neutophils 7.3 x10E3/uL (1.4-7.0); Abs CD4 Helper 650 /uL (359-1519); Abs CD8 Suppres 967 /uL (109-897); CD4/CD8 Ratio 0.67 (0.92-3.72); Eosinophils 0 % (Not Estab.); HCT 41.8 % (37.5-51.0); HGB 14.5 g/dL (13.0-17.7); HIV-1 RNA PCR QUANT 2 LC550285 <20 copies/mL (.); Immature Grans 0 % (Not Estab.); Lymphocytes 18 % (Not Estab.); MCH 36.3 pg (26.6-33.0); MCHC 34.7 g/dL (31.5-35.7); MCV 105 fL (79-97); Monocytes 11 % (Not Estab.); Neutrophils 71 % (Not Estab.); Platelets 193 x10E3/uL (150-450); RDW 16.9 % (12.3-15.4); WBC 10.4 x10E3/uL (3.4-10.8)
== END ==
LOC: M SFHCPLAZ 08:13
PROVIDERS: ATTEND Internal Medicine Infectious Disease
DX: B20 Human immunodeficiency virus [HIV] disease (principal); D50.0 Iron deficiency anemia secondary to blood loss (chronic)

== ENCOUNTER → 2019-11-27 | Outpatient (REF) | payer OTHER ==
[2019-11-27 12:17] LABS: ALBUMIN 3.7 GM/DL (3.2-5.2); ALT/SGPT 20 U/L (12-78); BILIRUBIN,TOTAL 0.9 MG/DL (0.2-1.0); BLOOD UREA NITROGEN 13 MG/DL (7-18); CALCIUM LEVEL 9.6 MG/DL (8.5-10.1); CARBON DIOXIDE LEVEL 26 MEQ/L (21-32); CHLORIDE LEVEL 100 MEQ/L (98-107); CREATININE FOR GFR 0.82 MG/DL (0.70-1.30); GLOMERULAR FILTRATION RATE > 60.0 (>56); GLUCOSE, FASTING 88 MG/DL (70-100); POTASSIUM SERUM 3.8 MEQ/L (3.5-5.1); SODIUM LEVEL 136 MEQ/L (136-145); TOTAL PROTEIN 7.6 GM/DL (6.4-8.2)
[2019-11-30 00:07] LABS: % CD8 Pos Lymph 46.3 % (12.0-35.5); %CD4 Pos Lymphs 38.7 % (30.8-58.5); ABS Basophils 0.1 x10E3/uL (0.0-0.2); ABS Eosinophils 0.1 x10E3/uL (0.0-0.4); ABS Monocytes 1.5 x10E3/uL (0.1-0.9); ABS Neutophils 6.7 x10E3/uL (1.4-7.0); Abs CD4 Helper 774 /uL (359-1519); Abs CD8 Suppres 926 /uL (109-897); CD4/CD8 Ratio 0.84 (0.92-3.72); Eosinophils 1 % (Not Estab.); HCT 36.9 % (37.5-51.0); HGB 12.2 g/dL (13.0-17.7); HIV-1 RNA PCR QUANT 2 LC550285 <20 copies/mL (.); Immature Grans 0 % (Not Estab.); Lymphocytes 19 % (Not Estab.); MCH 32.7 pg (26.6-33.0); MCHC 33.1 g/dL (31.5-35.7); MCV 99 fL (79-97); Monocytes 14 % (Not Estab.); Neutrophils 65 % (Not Estab.); Platelets 376 x10E3/uL (150-450); RBC 3.73 x10E6/uL (4.14-5.80); RDW 15.8 % (11.6-15.4); WBC 10.4 x10E3/uL (3.4-10.8)
== END ==
LOC: M SFHCPLAZ 09:32
PROVIDERS: ATTEND Internal Medicine Infectious Disease
DX: B20 Human immunodeficiency virus [HIV] disease (principal)

== ENCOUNTER → 2020-04-08 | Outpatient (REF) | payer OTHER ==
[~2020-04-08] MED LIST changes: +CYCL-707 PO; -CYCL10TA PO
[2020-04-08 16:23] LABS: APPEARANCE, URINE CLEAR (CLEAR); BACTERIA, URINE AUTO 1+ (NEGATIVE); BILIRUBIN, URINE AUTO NEGATIVE (NEGATIVE); BLOOD, URINE BLOOD NEGATIVE (NEGATIVE); COLOR, URINE YELLOW (YELLOW); GLUCOSE, URINE (UA) AUTO NEGATIVE (NEGATIVE); KETONE, URINE AUTO NEGATIVE (NEGATIVE); LEUKOCYTE ESTERASE, URINE AUTO 1+ (NEGATIVE); NITRITE, URINE AUTO NEGATIVE (NEGATIVE); PROTEIN, URINE AUTO NEGATIVE (NEGATIVE); RBC, URINE AUTO 1 /HPF (0-3); SQUAMOUS EPITHELIAL CELL UR AU 0 /HPF (0-6); UROBILINOGEN, URINE AUTO 0.2 mg/dL (0.0-2.0); WBC, URINE AUTO 5 /HPF (0-3)
[2020-04-08 16:47] LABS: ALBUMIN 3.7 GM/DL (3.2-5.2); ALT/SGPT 21 U/L (12-78); BILIRUBIN,TOTAL 0.3 MG/DL (0.2-1.0); BLOOD UREA NITROGEN 17 MG/DL (7-18); CALCIUM LEVEL 9.4 MG/DL (8.5-10.1); CARBON DIOXIDE LEVEL 27 MEQ/L (21-32); CHLORIDE LEVEL 107 MEQ/L (98-107); CREATININE FOR GFR 0.99 MG/DL (0.70-1.30); GLOMERULAR FILTRATION RATE > 60.0 (>56); GLUCOSE, FASTING 91 MG/DL (70-100); IRON (FE) 16 UG/DL (65-175); PERCENT SATURATION 3.3 % (19.7-50.0); SODIUM LEVEL 140 MEQ/L (136-145); TOTAL IRON BINDING CAPACITY 480 UG/DL (250-450)
[2020-04-08 16:57] LABS: TOTAL 25(OH) VITAMIN D 117.6 NG/ML (30.0-100.0); VITAMIN B12 LEVEL 321 PG/ML
[2020-04-08 20:00] LABS: CHLAMYDIA DNA AMPLIFICATION NEGATIVE (NEGATIVE); GC DNA AMPLIFICATION NEGATIVE (NEGATIVE)
[2020-04-11 12:14] LABS: % CD8 Pos Lymph 43.8 % (12.0-35.5); %CD4 Pos Lymphs 42.7 % (30.8-58.5); ABS Basophils 0.1 x10E3/uL (0.0-0.2); ABS Eosinophils 0.1 x10E3/uL (0.0-0.4); ABS Lymphs 1.7 x10E3/uL (0.7-3.1); ABS Monocytes 1.3 x10E3/uL (0.1-0.9); ABS Neutophils 5.6 x10E3/uL (1.4-7.0); Abs CD4 Helper 726 /uL (359-1519); Abs CD8 Suppres 745 /uL (109-897); CD4/CD8 Ratio 0.97 (0.92-3.72); Eosinophils 1 % (Not Estab.); HCT 32.7 % (37.5-51.0); HGB 9.4 g/dL (13.0-17.7); HIV-1 RNA PCR QUANT 2 LC550285 <20 copies/mL (.); Immature Grans 1 % (Not Estab.); Lymphocytes 19 % (Not Estab.); MCH 25.1 pg (26.6-33.0); MCHC 28.7 g/dL (31.5-35.7); MCV 87 fL (79-97); Monocytes 14 % (Not Estab.); Neutrophils 64 % (Not Estab.); Platelets 604 x10E3/uL (150-450); RBC 3.75 x10E6/uL (4.14-5.80); RDW 22.1 % (11.6-15.4); WBC 8.9 x10E3/uL (3.4-10.8)
== END ==
LOC: M SFHCPLAZ 13:01
PROVIDERS: ATTEND Internal Medicine Infectious Disease
DX: B20 Human immunodeficiency virus [HIV] disease (principal); D50.0 Iron deficiency anemia secondary to blood loss (chronic)

== ENCOUNTER 2020-06-04 12:08 | Emergency (ER) | payer OTHER ==
[~2020-06-04 12:08] MED LIST changes: +PANT40TA29 PO; -PANT40TA3 PO
[2020-06-04] MEDS ORDERED: BOOSTRIX/ADACEL VACCINE (DIPHTH/PERTUSS/ACELL/TETANUS) 0.5ML SYR ONE (12:34)
[2020-06-04] MEDS ORDERED: BOOSTRIX/ADACEL VACCINE (DIPHTH/PERTUSS/ACELL/TETANUS) 0.5ML SYR As Ordered ONE (13:34)
== END 2020-06-04 13:55 | disposition home or self-care (01) ==
LOC: M ED 12:08
DX: S01.112A Laceration without foreign body of left eyelid and periocular area, initial encounter (principal); Y04.0XXA Assault by unarmed brawl or fight, initial encounter; Y92.098 Other place in other non-institutional residence as the place of occurrence of the external cause; R07.9 Chest pain, unspecified; F10.10 Alcohol abuse, uncomplicated; K21.9 Gastro-esophageal reflux disease without esophagitis; J44.9 Chronic obstructive pulmonary disease, unspecified; B20 Human immunodeficiency virus [HIV] disease; Z79.899 Other long term (current) drug therapy; Z79.82 Long term (current) use of aspirin; Z88.0 Allergy status to penicillin

== ENCOUNTER → 2020-07-30 | Outpatient (REF) | payer OTHER ==
[2020-07-30 13:19] LABS: APPEARANCE, URINE HAZY (CLEAR); BACTERIA, URINE AUTO 1+ (NEGATIVE); BILIRUBIN, URINE AUTO NEGATIVE (NEGATIVE); BLOOD, URINE BLOOD NEGATIVE (NEGATIVE); COLOR, URINE YELLOW (YELLOW); GLUCOSE, URINE (UA) AUTO NEGATIVE (NEGATIVE); KETONE, URINE AUTO TRACE mg/dL (NEGATIVE); LEUKOCYTE ESTERASE, URINE AUTO 1+ (NEGATIVE); MUCUS, URINE SMALL (NEGATIVE); NITRITE, URINE AUTO NEGATIVE (NEGATIVE); PROTEIN, URINE AUTO NEGATIVE (NEGATIVE); RBC, URINE AUTO 1 /HPF (0-3); SPECIFIC GRAVITY URINE AUTO 1.009 (1.002-1.035); SQUAMOUS EPITHELIAL CELL UR AU 0 /HPF (0-6); UROBILINOGEN, URINE AUTO 0.2 mg/dL (0.0-2.0); WBC, URINE AUTO 10 /HPF (0-3)
== END ==
LOC: M LAB REF 12:26
PROVIDERS: ATTEND Nurse Practitioner Family
DX: Z12.11 Encounter for screening for malignant neoplasm of colon (principal); D50.8 Other iron deficiency anemias; J44.9 Chronic obstructive pulmonary disease, unspecified

== ENCOUNTER → 2020-07-30 | Outpatient (REF) | payer OTHER, MEDICAID ==
[2020-07-30 13:26] LABS: BASO # 0.1 10^3/uL (0.0-0.2); BASO % 0.7 % (0.0-1.0); EOS # 0.1 10^3/uL (0.0-0.5); EOS % 0.6 % (0.0-3.0); HEMATOCRIT 34.6 % (42.0-52.0); HEMOGLOBIN 11.1 g/dl (13.5-17.5); LYMPH # 1.9 10^3/uL (1.5-5.0); LYMPH % 14.3 % (24.0-44.0); MEAN CORPUSCULAR HEMOGLOBIN 29.4 pg (27.0-33.0); MEAN CORPUSCULAR HGB CONC 32.1 g/dl (32.0-36.5); MEAN CORPUSCULAR VOLUME 91.5 fl (80.0-96.0); MONO # 1.9 10^3/uL (0.0-0.8); MONO % 14.5 % (0.0-5.0); NEUTROPHILS % 68.2 % (36.0-66.0); PLATELET COUNT, AUTOMATED 524 10^3/uL (150-450); RED BLOOD COUNT 3.78 10^6/uL (4.30-6.10); WHITE BLOOD COUNT 13.2 10^3/uL (4.0-10.0)
[2020-07-30 13:38] LABS: ALBUMIN 2.8 GM/DL (3.2-5.2); ALT/SGPT 25 U/L (12-78); BILIRUBIN,TOTAL 0.3 MG/DL (0.2-1.0); BLOOD UREA NITROGEN 9 MG/DL (7-18); CALCIUM LEVEL 10.8 MG/DL (8.5-10.1); CARBON DIOXIDE LEVEL 26 MEQ/L (21-32); CHLORIDE LEVEL 101 MEQ/L (98-107); CHOLESTEROL LEVEL 168 MG/DL (<200); CHOLESTEROL RISK RATIO 1.615 (<5); CREATININE FOR GFR 0.79 MG/DL (0.70-1.30); FERRITIN 68 NG/ML (26-388); FREE T4 1.17 NG/DL (0.76-1.46); GLOMERULAR FILTRATION RATE > 60.0 (>56); GLUCOSE, FASTING 91 MG/DL (70-100); HDL CHOLESTEROL 104 MG/DL (>40); IRON (FE) 31 UG/DL (65-175); LDL CHOLESTEROL 49 MG/DL (<100); NON-HDL-C 64 MG/DL; POTASSIUM SERUM 4.4 MEQ/L (3.5-5.1); SODIUM LEVEL 134 MEQ/L (136-145); TOTAL PROTEIN 7.1 GM/DL (6.4-8.2); TRIGLYCERIDES LEVEL 75 MG/DL (<150)
[2020-07-30 13:39] LABS: FOLATE 7.3 NG/ML; VITAMIN B12 LEVEL 666 PG/ML
== END ==
LOC: M LAB REF 12:37
PROVIDERS: ATTEND Nurse Practitioner Family
DX: F17.200 Nicotine dependence, unspecified, uncomplicated (principal); Z13.9 Encounter for screening, unspecified; Z12.11 Encounter for screening for malignant neoplasm of colon; D50.8 Other iron deficiency anemias; Z21 Asymptomatic human immunodeficiency virus [HIV] infection status; J44.9 Chronic obstructive pulmonary disease, unspecified

== ENCOUNTER → 2020-11-06 | Outpatient (REF) | payer OTHER, MEDICAID ==
[~2020-11-06] MED LIST changes: +FERR325T16 PO
[2020-11-06 12:04] LABS: BASO # 0.1 10^3/uL (0.0-0.2); BASO % 1.2 % (0.0-1.0); EOS # 0.1 10^3/uL (0.0-0.5); EOS % 1.4 % (0.0-3.0); HEMATOCRIT 24.1 % (42.0-52.0); HEMOGLOBIN 7.1 g/dl (13.5-17.5); LYMPH # 0.8 10^3/uL (1.5-5.0); LYMPH % 7.9 % (24.0-44.0); MEAN CORPUSCULAR HGB CONC 29.5 g/dl (32.0-36.5); MEAN CORPUSCULAR VOLUME 98.4 fl (80.0-96.0); MONO # 1.7 10^3/uL (0.0-0.8); MONO % 16.8 % (0.0-5.0); NEUTROPHILS # 7.3 10^3/uL (1.5-8.5); NEUTROPHILS % 71.9 % (36.0-66.0); PLATELET COUNT, AUTOMATED 457 10^3/uL (150-450); RED BLOOD COUNT 2.45 10^6/uL (4.30-6.10); WHITE BLOOD COUNT 10.1 10^3/uL (4.0-10.0)
[2020-11-06 12:51] LABS: ALBUMIN 2.7 GM/DL (3.2-5.2); ALT/SGPT 15 U/L (12-78); BILIRUBIN,TOTAL 0.3 MG/DL (0.2-1.0); BLOOD UREA NITROGEN 6 MG/DL (7-18); CALCIUM LEVEL 8.5 MG/DL (8.5-10.1); CARBON DIOXIDE LEVEL 26 MEQ/L (21-32); CHLORIDE LEVEL 102 MEQ/L (98-107); CHOLESTEROL LEVEL 142 MG/DL (<200); CHOLESTEROL RISK RATIO 1.526 (<5); CREATININE FOR GFR 0.66 MG/DL (0.70-1.30); GLOMERULAR FILTRATION RATE > 60.0 (>56); GLUCOSE, FASTING 74 MG/DL (70-100); HDL CHOLESTEROL 93 MG/DL (>40); LDL CHOLESTEROL 36 MG/DL (<100); NON-HDL-C 49 MG/DL; SODIUM LEVEL 134 MEQ/L (136-145); TOTAL 25(OH) VITAMIN D 50.3 NG/ML (30.0-100.0); TOTAL PROTEIN 6.5 GM/DL (6.4-8.2); TRIGLYCERIDES LEVEL 66 MG/DL (<150)
== END ==
LOC: M LAB REF 11:21
PROVIDERS: ATTEND Family Medicine Addiction Medicine
DX: E55.9 Vitamin D deficiency, unspecified (principal); D50.9 Iron deficiency anemia, unspecified

== ENCOUNTER 2020-11-10 13:41 | Emergency (ER) | payer OTHER, MEDICAID ==
[~2020-11-10 13:41] MED LIST changes: -FERR325T16 PO
[2020-11-10 14:56] LABS: BASO # 0.1 10^3/uL (0.0-0.2); EOS # 0.1 10^3/uL (0.0-0.5); EOS % 0.9 % (0.0-3.0); HEMATOCRIT 24.5 % (42.0-52.0); HEMOGLOBIN 7.1 g/dl (13.5-17.5); LYMPH # 1.4 10^3/uL (1.5-5.0); MONO # 1.8 10^3/uL (0.0-0.8); MONO % 15.7 % (0.0-5.0); NEUTROPHILS # 7.9 10^3/uL (1.5-8.5); NEUTROPHILS % 69.3 % (36.0-66.0); PLATELET COUNT, AUTOMATED 505 10^3/uL (150-450); RED BLOOD COUNT 2.45 10^6/uL (4.30-6.10); WHITE BLOOD COUNT 11.4 10^3/uL (4.0-10.0)
[2020-11-10] MEDS ORDERED: FERR325T16 PO (14:56)
[2020-11-10] MEDS ORDERED: PROT1TAB2 PO (14:56)
[2020-11-10 15:06] LABS: INR 0.92; PROTHROMBIN TIME 12.6 SECONDS (12.5-14.3)
[2020-11-10 15:07] LABS: PARTIAL THROMBOPLASTIN TIME 29.9 SECONDS (24.2-38.5)
[2020-11-10 15:18] VITALS: BP 151/92
[2020-11-10 15:28] LABS: ALBUMIN 2.8 GM/DL (3.2-5.2); ALT/SGPT 20 U/L (12-78); AMYLASE 74 U/L (25-115); BILIRUBIN,DIRECT < 0.1 MG/DL (0.0-0.2); BLOOD UREA NITROGEN 8 MG/DL (7-18); CALCIUM LEVEL 8.9 MG/DL (8.5-10.1); CARBON DIOXIDE LEVEL 25 MEQ/L (21-32); CHLORIDE LEVEL 99 MEQ/L (98-107); CK-MB VALUE MASS 1.4 NG/ML (<3.6); CPK CREATINE PHOSPHOKINASE 52 U/L (39-308); CREATININE FOR GFR 0.66 MG/DL (0.70-1.30); GLOMERULAR FILTRATION RATE > 60.0 (>56); GLUCOSE, FASTING 73 MG/DL (70-100); LIPASE 222 U/L (73-393); MB/CK RELATIVE INDEX 2.69 (< OR =4); POTASSIUM SERUM 4.7 MEQ/L (3.5-5.1); SODIUM LEVEL 133 MEQ/L (136-145); TOTAL PROTEIN 6.9 GM/DL (6.4-8.2); TROPONIN I < 0.02 NG/ML (< 0.10)
[2020-11-10 15:39] LABS: BILIRUBIN,TOTAL < 0.1 MG/DL (0.2-1.0)
== END 2020-11-10 15:36 | disposition left against medical advice (07) ==
LOC: M ED 13:41
DX: K92.2 Gastrointestinal hemorrhage, unspecified (principal); F10.10 Alcohol abuse, uncomplicated; D64.9 Anemia, unspecified; Z53.9 Procedure and treatment not carried out, unspecified reason; B20 Human immunodeficiency virus [HIV] disease; I10 Essential (primary) hypertension; J44.9 Chronic obstructive pulmonary disease, unspecified; K21.9 Gastro-esophageal reflux disease without esophagitis; F17.200 Nicotine dependence, unspecified, uncomplicated; Z79.51 Long term (current) use of inhaled steroids; Z79.899 Other long term (current) drug therapy

== ENCOUNTER → 2021-01-01 | Outpatient (REF) | payer OTHER, MEDICAID ==
[~2021-01-01] MED LIST changes: +FERR325T16 PO; -MAG400TA PO; +MAGN400T35 PO
[2021-01-01 17:10] LABS: BASO # 0.1 10^3/uL (0.0-0.2); BASO % 1.2 % (0.0-1.0); EOS # 0.1 10^3/uL (0.0-0.5); EOS % 1.2 % (0.0-3.0); HEMOGLOBIN 7.7 g/dl (13.5-17.5); LYMPH # 0.8 10^3/uL (1.5-5.0); LYMPH % 8.2 % (24.0-44.0); MEAN CORPUSCULAR HEMOGLOBIN 31.2 pg (27.0-33.0); MEAN CORPUSCULAR HGB CONC 29.6 g/dl (32.0-36.5); MEAN CORPUSCULAR VOLUME 105.3 fl (80.0-96.0); MONO # 1.3 10^3/uL (0.0-0.8); MONO % 13.9 % (2.0-8.0); NEUTROPHILS # 7.2 10^3/uL (1.5-8.5); NEUTROPHILS % 74.9 % (36.0-66.0); PLATELET COUNT, AUTOMATED 320 10^3/uL (150-450); RED BLOOD COUNT 2.47 10^6/uL (4.30-6.10); WHITE BLOOD COUNT 9.6 10^3/uL (4.0-10.0)
[2021-01-01 17:41] LABS: ALBUMIN 2.9 GM/DL (3.2-5.2); ALT/SGPT 31 U/L (12-78); BLOOD UREA NITROGEN 8 MG/DL (7-18); CALCIUM LEVEL 8.3 MG/DL (8.5-10.1); CARBON DIOXIDE LEVEL 26 MEQ/L (21-32); CHLORIDE LEVEL 101 MEQ/L (98-107); CREATININE FOR GFR 0.65 MG/DL (0.70-1.30); FERRITIN 62 NG/ML (26-388); GLOMERULAR FILTRATION RATE > 60.0 (>56); GLUCOSE, FASTING 61 MG/DL (70-100); IRON (FE) 24 UG/DL (65-175); PERCENT SATURATION 7.1 % (19.7-50.0); POTASSIUM SERUM 5.1 MEQ/L (3.5-5.1); SODIUM LEVEL 134 MEQ/L (136-145); TOTAL IRON BINDING CAPACITY 338 UG/DL (250-450); TOTAL PROTEIN 6.3 GM/DL (6.4-8.2)
[2021-01-01 17:49] LABS: VITAMIN B12 LEVEL 426 PG/ML
[2021-01-01 17:50] LABS: BILIRUBIN,TOTAL < 0.1 MG/DL (0.2-1.0)
[2021-01-01 17:54] LABS: FOLATE 8.1 NG/ML
== END ==
LOC: M LAB REF 16:35
PROVIDERS: ATTEND Nurse Practitioner Family
DX: D64.9 Anemia, unspecified (principal)

== ENCOUNTER 2021-03-03 16:53 | Observation (INO) | payer OTHER ==
[~2021-03-03] VITALS: Ht 157.5 cm; Wt 54.7 kg
[~2021-03-03 16:53] MED LIST changes: -ASPI1CHW3 PO; -B-1100TA2 PO; -METO1TAB32 PO
[2021-03-03] MEDS ORDERED: ACETAMINOPHEN TAB 650MG DOSE (2X325MG) PO PRN (17:35)
[2021-03-03] MEDS ORDERED: LORazepam 2 MG TAB PO PRN (17:45)
--- NOTE | 2021-03-03 18:36 | HPEPDOC ---
[facility] Medical History & Physical Date of Admission Mar 03, 2021 Date of Service: Mar 03, 2021 History and Physical CHIEF COMPLAINT: Shortness of breath HISTORY OF PRESENT ILLNESS: 56 yo M with a history of HIV infection on Biktarvy who follows with Dr. Marquez, chronic EtOH abuse and severe iron deficiency anemia, thrombocytosis and a history of HIT in 2017 whose prior work up showed severe iron deficiency anemia and was previously recommended for an EGD but declined and he was started on ferrous sulfate and protonix BID who now returns with severe symptomatic anemia with shortness of breath that is worse with exertion and Hgb noted in outpatient setting today to be 6.2 from recent 7.7 in 12/2020, WBC `5.7, platelets 791, Na `33, K 4.8, Cr 0.94, Fe 19, ferritin 93, TIBC 187, AST 33, ALT 32. Per ED physician guaiac is negative today. Of note, he has an extensive bedbug infestation, denies fever, chills, recent cough, weight loss, gross hematuria, hematochezia, hemoptysis, hematemesis or melena. Of note, he reports having recently been scoped at [facility] and was told that he has hemorrhoids but denies knowledge of any ulcers. He declines any further scoping. PAST MEDICAL HISTORY: HIV infection on Biktarvy Iron deficiency anemia Alcohol use disorder PAST SURGICAL HISTORY: Back surgery SOCIAL HISTORY: Tobacco use: Yes ETOH: Excessive use with dependence Illicit drug use: denies FAMILY HISTORY: ALLERGIES: Please see below. REVIEW OF SYSTEMS: 10 point ROS was otherwise negative except as noted above. HOME MEDICATIONS: Please see below. PHYSICAL EXAMINATION: VITAL SIGNS: HDS, afebrile, breathing comfortably on room air GENERAL APPEARANCE: disheveled, thin, NAD HEENT: NCAT, EOMI, clear posterior oropharynx without shaka thrush or exudates CARDIOVASCULAR: RRR, no m/r/g LUNGS: CTAB ABDOMEN: normoactive sounds, soft, NTND EXTREMITIES: WWP, no LE edema NEUROLOGICAL: CN 2-12 intact, grossly nonfocal exam PSYCHIATRIC: AOx3 LABORATORY DATA and IMAGING: summarized above MICROBIOLOGY: Please see below. ASSESSMENT: 56 yo M with chronic HIV infection on Biktarvy, NETTA who has declined scoping in the past and EtOH abuse who is being admitted for symptomatic anemia with suspicion of chronic slow GI losses but also likely multifactorial with marrow suppressive effects of alcohol. PLAN: Symptomatic anemia: Likely 2/2 chronic slow GI losses but also likely multifactorial with marrow suppressive effects of alcohol. -Rediscuss the utility of scoping to r/o GIB -retic with AM labs -2u pRBCs -Regular diet since he frankly refuses the idea of further scoping. Not sure if he had an EGD and colonoscopy or just a colonscopy at [facility]. -IV PPI BID -will continue PO iron EtOH abuse: -CIWA protocol with symptom triggered PRN ativan PO -Multivitamin, thiamine and folate repletion Bedbugs: -contact isolation HIV infection: -continue home Biktarvy DVT ppx: CHECO and SCDs. Dispo: medsurg/obs Vital Signs Vital Signs Date Time Temp Pulse Resp B/P (MAP) Pulse Ox O2 Delivery O2 Flow Rate FiO2 03/03/21 17:16 97.5 95 17 122/74 (90) 100 Room Air Home Medications Scheduled Bictegrav/Emtricit/Tenofov Ala (Biktarvy 50-200-25 mg Tablet) 1 Each Tablet, 1 TAB PO DAILY Ferrous Gluconate (Ferrous Gluconate) 324 Mg Tablet, 324 MG PO DAILY Pantoprazole Sodium (Protonix) 40 Mg Tablet.dr, 40 MG PO DAILY Scheduled PRN Albuterol Sulfate (Ventolin Hfa) 18 Gm Hfa.aer.ad, 2 PUFF INH Q4H PRN for SHORTNESS OF BREATH Allergies Coded Allergies: abacavir (Verified Allergy, Unknown, rash, 04/12/19) A-FIB/CHADSVASC A-FIB History Current/History of A-Fib/PAF?: No Current PO Anticoag Therapy: No Age/Risk Factor Scoring CHADSVASC: CHADSVASC Response (Comments) Value Age Risk Factor Age < 65 years old 0 Gender Risk Factor Male 0 Hx of CHF No 0 Hx of HTN No 0 Hx of Stroke/TIA/or VTE No 0 Hx of Diabetes No 0 Hx of Vascular Disease No 0 Total 0 Treatment Treatment ordered: NONE Reason Anticoagulant not given: Not indicated/[id number] ELIZABETH SOUSA MD Mar 03, 2021 18:01
--- NOTE | 2021-03-03 18:51 | REP ---
INDICATION: admission. COMPARISON: Comparison chest x-ray April 12, 2019.. TECHNIQUE: Upright portable AP chest radiograph. FINDINGS: There is a large irregular opacity in the left upper lung zone region. This measures up to 6 cm in greatest diameter. There is a 1 cm nodule in the left upper lobe and a perihilar infiltrate is seen in the left upper lobe. The left hilus is retracted upward and enlarged. Findings suggestive of malignancy with a partial left upper lobe collapse and atelectasis. Right lung is hyperinflated, particularly in the right upper lobe where there is oligemic. The heart is not enlarged. Pleural angles are sharp. No bony destructive lesion is seen. IMPRESSION: Suspect primary bronchogenic malignancy left upper lobe with partial collapse of the left upper lobe and infiltrate in the left perihilar region. COPD. Recommend chest CT study, preferably with IV contrast. <Electronically signed by Chauncey Sage > 03/03/21 [id number]
[2021-03-03] MEDS ORDERED: ASPI1CHW3 PO (19:09)
[2021-03-03] MEDS ORDERED: FOLI1TAB11 PO (19:09)
[2021-03-03] MEDS ORDERED: METO1TAB32 PO (19:09)
[2021-03-03] MEDS ORDERED: VITMTA PO (19:09)
[2021-03-03] MEDS ORDERED: B-1100TA2 PO (19:09)
[2021-03-03 19:12] LABS: RSV AMPLIFICATION NEGATIVE (NEGATIVE)
[2021-03-03] MEDS: THIAMINE 100 MG TAB PO SCH (19:15)
[2021-03-04] VITALS (12 sets, daily range): BP systolic 96–112; BP diastolic 48–75
[2021-03-04] MEDS: PANTOPRAZOLE 40MG VIAL (C9113 PER 1) IV SCH ×2 (00:38→09:35)
[2021-03-04] MEDS ORDERED: RAMELTEON 8 MG TAB (ROZEREM) PO PRN (01:30)
[2021-03-04 07:13] LABS: HEMATOCRIT 24.5 % (42.0-52.0); HEMOGLOBIN 7.9 g/dl (13.5-17.5); MEAN CORPUSCULAR HEMOGLOBIN 29.3 pg (27.0-33.0); MEAN CORPUSCULAR HGB CONC 32.2 g/dl (32.0-36.5); MEAN CORPUSCULAR VOLUME 90.7 fl (80.0-96.0); WHITE BLOOD COUNT 12.9 10^3/uL (4.0-10.0)
[2021-03-04 07:24] LABS: PLATELET COUNT, AUTOMATED 675 10^3/uL (150-450)
[2021-03-04 07:31] LABS: BLOOD UREA NITROGEN 9 MG/DL (7-18); CALCIUM LEVEL 8.1 MG/DL (8.5-10.1); CARBON DIOXIDE LEVEL 23 MEQ/L (21-32); CHLORIDE LEVEL 106 MEQ/L (98-107); CREATININE FOR GFR 0.72 MG/DL (0.70-1.30); GLOMERULAR FILTRATION RATE > 60.0 (>56); GLUCOSE, FASTING 80 MG/DL (70-100); POTASSIUM SERUM 3.9 MEQ/L (3.5-5.1); SODIUM LEVEL 136 MEQ/L (136-145)
[2021-03-04] MEDS ORDERED: FERROUS SULFATE 325MG TAB PO SCH (09:00)
[2021-03-04] MEDS ORDERED: MULTIVITAMINS/MINERALS THERAP 1 TAB PO SCH (09:00)
[2021-03-04] MEDS ORDERED: BIKTARVY PO SCH (09:00)
[2021-03-04] MEDS ORDERED: FOLIC ACID 1 MG TAB PO SCH (09:00)
[2021-03-04] MEDS: THIAMINE 100 MG TAB PO SCH (09:35)
[2021-03-04] MEDS: DOXYCYCLINE HYCLATE 100MG TABLET PO SCH ×2 (10:38→18:11)
--- NOTE | 2021-03-04 12:53 | IPNPDOC ---
Text Note Date of Service The patient was seen on 03/04/21. NOTE SUBJECTIVE: -No acute complaints PHYSICAL EXAMINATION: VITAL SIGNS: HDS, afebrile, breathing comfortably on room air GENERAL APPEARANCE: disheveled, thin, NAD HEENT: NCAT, EOMI, clear posterior oropharynx without shaka thrush or exudates CARDIOVASCULAR: RRR, no m/r/g LUNGS: CTAB ABDOMEN: normoactive sounds, soft, NTND EXTREMITIES: WWP, no LE edema NEUROLOGICAL: CN 2-12 intact, grossly nonfocal exam PSYCHIATRIC: AOx3 LABORATORY DATA: WBC 12.9 Hgb 7.9 platelets 675 Na 136 K 3.9 Cr 0.72 CXR: There is a large irregular opacity in the left upper lung zone region. This jerome sures up to 6 cm in greatest diameter. There is a 1 cm nodule in the left upper lobe and a perihilar infiltrate is seen in the left upper lobe. The left hilus is retracted upward and enlarged. Findings suggestive of malignancy with a partial left upper lobe collapse and atelectasis. Right lung is hyperinflated, particularly in the right upper lobe where there is oligemic. The heart is not enlarged. Pleural angles are sharp. No bony destructive lesion is seen. IMPRESSION: Suspect primary bronchogenic malignancy left upper lobe with partial collapse of the left upper lobe and infiltrate in the left perihilar region. COPD. Recommend chest CT study, preferably with IV contrast. MICROBIOLOGY: Please see below. ASSESSMENT: 56 yo M with chronic HIV infection on Biktarvy, NETTA who has declined scoping in the past and EtOH abuse who is being admitted for symptomatic anemia with susp icion of chronic slow GI losses but also likely multifactorial with marrow suppressive effects of alcohol and now incidentally found to have a large irregular opacity in the left upper lung zone region c/f potential malignancy now pending CT. PLAN: Symptomatic anemia: Likely 2/2 chronic slow GI losses but also likely multifactorial with marrow suppressive effects of alcohol. -Declined scoping -Appropriately retic'ing -s/p 2u pRBCs -Regular diet since he frankly refuses the idea of further scoping. Not sure if he had an EGD and colonoscopy or just a colonscopy at [facility]. Obtain records from [facility] -will switch back to PO BID PPI -continue PO iron Incidentally identified WILFRED opacity c/f malignancy: -CT chest with contrast -procal -sputum culture -MRSA swab -will start empiric ceftin/doxy for potential infection EtOH abuse: -CIWA protocol with symptom triggered PRN ativan PO -Multivitamin, thiamine and folate repletion Bedbugs: -contact isolation HIV infection: -continue home Biktarvy DVT ppx: CHECO and SCDs. Dispo: medsurg/obs VS,Fishbone, I+O VS, Fishbone, I+O Laboratory Tests 03/04/21 06:32 Vital Signs Date Time Temp Pulse Resp B/P (MAP) Pulse Ox O2 Delivery O2 Flow Rate FiO2 03/04/21 09:29 113 103/75 03/04/21 06:00 98.8 22 96 Room Air I&O- Last 24 Hours up to 6 AM 03/04/21 06:00 Intake Total 1060 ml Output Total 0 ml Balance 1060 ml ELIZABETH SOUSA MD Mar 04, 2021 09:57
[2021-03-04] MEDS ORDERED: CEFUROXIME 500 MG TAB PO SCH (13:00)
[2021-03-04] MEDS ORDERED: ISOVUE-370 76% 100ML VIAL As Ordered ONE (17:18)
--- NOTE | 2021-03-04 18:53 | REPVR ---
PROCEDURE INFORMATION: Exam: CT Chest With Contrast; Diagnostic Exam date and time: 03/04/2021 5:52 PM Age: 56 years old Clinical indication: Abnormal findings; Abnormal radiologic exam of lung or chest; Additional info: Potential mass on cxr TECHNIQUE: Imaging protocol: Diagnostic computed tomography of the chest with contrast. 3D rendering (Not supervised by radiologist): MIP and/or 3D reconstructed images were created by the technologist. Radiation optimization: All CT scans at this facility use at least one of these dose optimization techniques: automated exposure control; mA and/or kV adjustment per patient size (includes targeted exams where dose is matched to clinical indication); or iterative reconstruction. Contrast material: ISOVUE 370; Contrast volume: 75 ml; Contrast route: INTRAVENOUS (IV); COMPARISON: CO Chest, 1 view 03/03/2021 6:34 PM; CT scan of the chest and abdomen 06/25/2017. FINDINGS: Lungs: Diffuse bilateral pulmonary emphysema is present and most severe in the upper lung zones. Bilateral apical bullous emphysema is present. There are irregular foci of masslike consolidations within the left upper lobe with focal tissue thickening in the left suprahilar/central left upper lobe. The findings are suspicious for pulmonary malignancy. An infectious process is not completely excluded. Further evaluation with PET-CT is recommended. Pleural spaces: Mild left apical pleural thickening. No pneumothorax. No pleural effusion. Heart: Unremarkable. No cardiomegaly. No pericardial effusion. Aorta: Unremarkable. No aortic aneurysm. Lymph nodes: Slightly prominent anterior upper mediastinal lymph node measuring 8 mm in diameter. Small mediastinal and bilateral hilar lymph nodes are otherwise present. Liver: Diffuse hepatic steatosis and focal steatosis within the left hepatic lobe. Tiny focus of enhancement within the left lobe of the liver (image 95, series 202), indeterminate. Follow-up imaging is recommended. Adrenal glands: Nodularity of both adrenal glands, unchanged compared to a prior CT scan of the abdomen performed on 06/25/2017 consistent with adenomas or other benign adrenal lesions. Bones/joints: Old severe compression fracture deformity of L1. There is progressive collapse of the L1 vertebral body. The retropulsed fragment resulting in moderate bony spinal stenosis is unchanged. Mixed density lesion and incompletely healed fracture of the superior aspect of the sternum. Correlate clinically. Consider radionuclide bone scan assessment as clinically warranted. Soft tissues: Unremarkable. IMPRESSION: 1. Severe diffuse pulmonary emphysema with bullous emphysema in the lung apices. 2. Multiple irregular foci of masslike consolidations within the left upper lobe with focal tissue thickening in the left suprahilar/central left upper lobe. The findings are suspicious for pulmonary malignancy. An infectious process is not completely excluded. Further evaluation with PET-CT is recommended. 3. Diffuse hepatic steatosis with focal steatosis in the left hepatic lobe. 4. Tiny focus of early enhancement within the left hepatic lobe, indeterminate. Follow-up imaging is recommended. 5. Stable nodularity of both adrenal glands consistent with adenomas or other benign adrenal lesions. 6. Old severe compression fracture deformity of L1 with retropulsed bony fragment resulting in moderate spinal stenosis. 7. Mixed density lesion and incompletely healed fracture of these superior aspect of the sternum. Consider radionuclide bone scan assessment as clinically warranted. Electronically signed by: Jermain Araiza On 03/04/2021 18:52:39 PM
--- NOTE | 2021-03-05 08:46 | DS.PDOC ---
Discharge Summary General Date of Admission Mar 03, 2021 at 16:54 Date of Discharge 03/04/2021 Attending Physician: ELIZABETH SOUSA MD Discharge Summary PROCEDURES PERFORMED DURING STAY: None ADMITTING DIAGNOSES: Symptomatic anemia DISCHARGE DIAGNOSES: Symptomatic anemia i/s/o history of slow GIB HIV infection on Biktarvy Iron deficiency anemia Alcohol use disorder Newly noted mass like lesions in left upper lobe of lung Bedbug infestation COMPLICATIONS/CHIEF COMPLAINT: Severe Anemia. HISTORY OF PRESENT ILLNESS: 56 yo M with a history of HIV infection on Biktarvy who follows with Dr. Marquez, chronic EtOH abuse and severe iron deficiency anemia, thrombocytosis and a history of HIT in 2017 whose prior work up showed severe iron deficiency anemia and was previously recommended for an EGD but declined and he was started on ferrous sulfate and protonix BID who now returned with severe symptomatic anemia with shortness of breath that was worse with exertion and Hgb noted in outpatient setting on the day of admission to be 6.2 from recent 7.7 in 12/2020, WBC 5.7, platelets 791, Na `33, K 4.8, Cr 0.94, Fe 19, ferritin 93, TIBC 187, AST 33, ALT 32 and was sent to the ED. HOSPITAL COURSE: Per ED physician guaiac was negative today. Of note, he had an extensive bedbug infestation, denied fever, chills, recent cough, weight loss, gross hematuria, hematochezia, hemoptysis, hematemesis or melena. Of note, he reported having recently been scoped at [facility] and was told that he has hemorrhoids but denies knowledge of any ulcers. He declined any further scoping. He was transfused a total of 2u pRBCs with a sustained response and improvement in symptoms. On initial evaluation he had a CXR that revealed potential WILFRED mass that was not previously noted. He was eager for discharge but we eventually agreed to at least get a CT of the chest with contrast to better delineate the new process noted in his left upper lung and he agreed to stay for imaging but would leave AMA shortly after. The CT of the chest revealed mass like lesions c/f malignancy vs. potential infection. I called Dr. Marquez his most consistent outpatient doctor and made her aware of these findings and that they will need follow up. He signed out AMA yesterday evening as he had stated shortly after imaging. DISCHARGE MEDICATIONS: Please see below. ALLERGIES: Please see below. PHYSICAL EXAMINATION ON DISCHARGE: DID NOT EXAMINE HIM HE LEFT AFTER I HAD DEPARTED FOR THE DAY. LABORATORY DATA: Please see below. IMAGING: CT chest with IV contrast: Lungs: Diffuse bilateral pulmonary emphysema is present and most severe in the upper lung zones. Bilateral apical bullous emphysema is present. There are irregular foci of masslike consolidations within the left upper lobe with focal tissue thickening in the left suprahilar/central left upper lobe. The findings are suspicious for pulmonary malignancy. An infectious process is not completely excluded. Further evaluation with PET-CT is recommended. Pleural spaces: Mild left apical pleural thickening. No pneumothorax. No pleural effusion. Heart: Unremarkable. No cardiomegaly. No pericardial effusion. Aorta: Unremarkable. No aortic aneurysm. Lymph nodes: Slightly prominent anterior upper mediastinal lymph node measuring 8 mm in diameter. Small mediastinal and bilateral hilar lymph nodes are otherwise present. Liver: Diffuse hepatic steatosis and focal steatosis within the left hepatic lobe. Tiny focus of enhancement within the left lobe of the liver (image 95, series 202), indeterminate. Follow-up imaging is recommended. Adrenal glands: Nodularity of both adrenal glands, unchanged compared to a prior CT scan of the abdomen performed on 06/25/2017 consistent with adenomas or other benign adrenal lesions. Bones/joints: Old severe compression fracture deformity of L1. There is progressive collapse of the L1 vertebral body. The retropulsed fragment resulting in moderate bony spinal stenosis is unchanged. Mixed density lesion and incompletely healed fracture of the superior aspect of the sternum. Correlate clinically. Consider radionuclide bone scan assessment as clinically warranted. Soft tissues: Unremarkable. IMPRESSION: 1. Severe diffuse pulmonary emphysema with bullous emphysema in the lung apices. 2. Multiple irregular foci of masslike consolidations within the left upper lobe with focal tissue thickening in the left suprahilar/central left upper lobe. The findings are suspicious for pulmonary malignancy. An infectious process is not completely excluded. Further evaluation with PET-CT is recommended. 3. Diffuse hepatic steatosis with focal steatosis in the left hepatic lobe. 4. Tiny focus of early enhancement within the left hepatic lobe, indeterminate. Follow-up imaging is recommended. 5. Stable nodularity of both adrenal glands consistent with adenomas or other benign adrenal lesions. 6. Old severe compression fracture deformity of L1 with retropulsed bony fragment resulting in moderate spinal stenosis. 7. Mixed density lesion and incompletely healed fracture of these superior aspect of the sternum. Consider radionuclide bone scan assessment as clinically warranted. CXR: There is a large irregular opacity in the left upper lung zone region. This measures up to 6 cm in greatest diameter. There is a 1 cm nodule in the left upper lobe and a perihilar infiltrate is seen in the left upper lobe. The left hilus is retracted upward and enlarged. Findings suggestive of malignancy with a partial left upper lobe collapse and atelectasis. Right lung is hyperinflated, particularly in the right upper lobe where there is oligemic. The heart is not enlarged. Pleural angles are sharp. No bony destructive lesion is seen. IMPRESSION: Suspect primary bronchogenic malignancy left upper lobe with partial collapse of the left upper lobe and infiltrate in the left perihilar region. COPD. Recommend chest CT study, preferably with IV contrast. PROGNOSIS: Good with good outpatient followup ACTIVITY: As tolerated DIET: regular DISCHARGE PLAN: AMA DISPOSITION: 01 Home, Self-Care. DISCHARGE INSTRUCTIONS: Encouraged him to please follow up with Dr. Marquez ITEMS TO FOLLOWUP ON ON OUTPATIENT: Left upper lung mass findings Anemia DISCHARGE CONDITION: Stable TIME SPENT ON DISCHARGE: 34 minutes. Vital Signs/I&Os Vital Signs Date Time Temp Pulse Resp B/P (MAP) Pulse Ox O2 Delivery O2 Flow Rate FiO2 03/04/21 14:03 111 105/74 03/04/21 14:00 99.6 19 98 Room Air I&O- Last 24 Hours up to 6 AM 03/05/21 05:59 Intake Total 800 ml Output Total 0 ml Balance 800 ml Laboratory Data Labs 24H Laboratory Tests 2 03/04/21 14:08: Methicillin-Resist S.aureus DNA PCR NOT DETECTED Microbiology Microbiology 03/04/21 Gram Stain - Final, Resulted 03/04/21 Sputum Culture, Resulted Pending Discharge Medications Scheduled Aspirin (Aspirin) 81 Mg Tab.chew, 81 MG PO DAILY, (Reported) Bictegrav/Emtricit/Tenofov Ala (Biktarvy 50-200-25 mg Tablet) 1 Each Tablet, 1 TAB PO DAILY, (Reported) Ferrous Gluconate (Ferrous Gluconate) 324 Mg Tablet, 324 MG PO DAILY, (Reported) Folic Acid (Folic Acid) 1 Mg Tablet, 1 MG PO DAILY, (Reported) Metoprolol Succinate (Metoprolol Succinate) 25 Mg Tab.er.24h, 25 MG PO DAILY, (Reported) Multivitamins (Thera M Plus Tablet) 1 Each Tablet, 1 TAB PO DAILY, (Reported) Pantoprazole Sodium (Protonix) 40 Mg Tablet.dr, 40 MG PO DAILY, (Reported) Thiamine HCl (Vitamin B-1) 100 Mg Tablet, 100 MG PO DAILY, (Reported) Scheduled PRN Albuterol Sulfate (Ventolin Hfa) 18 Gm Hfa.aer.ad, 2 PUFF INH Q4H PRN for SHORTNESS OF BREATH, (Reported) Allergies Coded Allergies: abacavir (Verified Allergy, Unknown, rash, 04/12/19) ELIZABETH SOUSA MD Mar 05, 2021 08:46
== END 2021-03-04 19:50 | disposition home or self-care (01) ==
LOC: M ED 16:53 → EDBD 16:53 → M ED INP 16:54 → ENRESERV 22:46 → M MSPAV 03-04 00:18
PROVIDERS: ADMIT Internal Medicine; ATTEND Internal Medicine
DX: D50.9 Iron deficiency anemia, unspecified (principal); Z53.29 Procedure and treatment not carried out because of patient's decision for other reasons; B20 Human immunodeficiency virus [HIV] disease; F10.10 Alcohol abuse, uncomplicated; R91.8 Other nonspecific abnormal finding of lung field; B88.8 Other specified infestations; D47.3 Essential (hemorrhagic) thrombocythemia; Z79.82 Long term (current) use of aspirin; Z79.899 Other long term (current) drug therapy; Z88.8 Allergy status to other drugs, medicaments and biological substances; F17.218 Nicotine dependence, cigarettes, with other nicotine-induced disorders
CPT/HCPCS: 36415; 36430; 71045; 71260; 80048; 84145; 85027; 85046; 86850; 86900; 86901; 86920; 87070; 87077; 87186; 87205; 87631; 87641; 96374; 96376; 99285; C9113; P9016; Q9967

== ENCOUNTER → 2021-03-03 | Outpatient (CLI) | payer OTHER ==
[~2021-03-03] MED LIST changes: +ASPI1CHW3 PO; +B-1100TA2 PO; +FERR324T21 PO; -FERR325T16 PO; +METO1TAB32 PO
[2021-03-03 11:40] LABS: BASO % 0.3 % (0.0-1.0); EOS % 0.1 % (0.0-3.0); LYMPH # 0.7 10^3/uL (1.5-5.0); LYMPH % 4.5 % (24.0-44.0); MEAN CORPUSCULAR HEMOGLOBIN 30.4 pg (27.0-33.0); MONO # 1.7 10^3/uL (0.0-0.8); MONO % 10.7 % (2.0-8.0); NEUTROPHILS # 12.5 10^3/uL (1.5-8.5); NEUTROPHILS % 79.4 % (36.0-66.0); PLATELET COUNT, AUTOMATED 791 10^3/uL (150-450); RED BLOOD COUNT 2.04 10^6/uL (4.30-6.10)
[2021-03-03 12:12] LABS: ALBUMIN 2.1 GM/DL (3.2-5.2); ALT/SGPT 32 U/L (12-78); BILIRUBIN,TOTAL 0.2 MG/DL (0.2-1.0); BLOOD UREA NITROGEN 11 MG/DL (7-18); CALCIUM LEVEL 8.8 MG/DL (8.5-10.1); CARBON DIOXIDE LEVEL 23 MEQ/L (21-32); CHLORIDE LEVEL 103 MEQ/L (98-107); CREATININE FOR GFR 0.94 MG/DL (0.70-1.30); FERRITIN 93 NG/ML (26-388); GLOMERULAR FILTRATION RATE > 60.0 (>56); GLUCOSE, FASTING 92 MG/DL (70-100); IRON (FE) 19 UG/DL (65-175); PERCENT SATURATION 10.2 % (19.7-50.0); POTASSIUM SERUM 4.8 MEQ/L (3.5-5.1); SODIUM LEVEL 133 MEQ/L (136-145); TOTAL IRON BINDING CAPACITY 187 UG/DL (250-450); TOTAL PROTEIN 6.1 GM/DL (6.4-8.2)
[2021-03-03 13:05] LABS: WHITE BLOOD COUNT 15.7 10^3/uL (4.0-10.0)
[2021-03-03 13:06] LABS: HEMOGLOBIN 6.2 g/dl (13.5-17.5)
== END ==
LOC: M LAB 11:18
PROVIDERS: ATTEND Nurse Practitioner Family
DX: D64.9 Anemia, unspecified (principal)

== ENCOUNTER → 2021-03-12 | Outpatient (REF) | payer OTHER ==
[~2021-03-12] MED LIST changes: +ASPI1CHW3 PO; +B-1100TA2 PO; +METO1TAB32 PO
== END ==
LOC: M SFHCWAGY 15:02
PROVIDERS: ATTEND Internal Medicine Infectious Disease
DX: J98.4 Other disorders of lung (principal)

== ENCOUNTER → 2021-03-12 | Outpatient (REF) | payer OTHER ==
[2021-03-12 15:51] LABS: BLOOD UREA NITROGEN 9 MG/DL (7-18); CARBON DIOXIDE LEVEL 24 MEQ/L (21-32); CHLORIDE LEVEL 103 MEQ/L (98-107); CREATININE FOR GFR 0.74 MG/DL (0.70-1.30); GLOMERULAR FILTRATION RATE > 60.0 (>56); GLUCOSE, FASTING 99 MG/DL (70-100); POTASSIUM SERUM 5.2 MEQ/L (3.5-5.1); SODIUM LEVEL 132 MEQ/L (136-145)
[2021-03-12 15:52] LABS: ALBUMIN 2.5 GM/DL (3.2-5.2); ALT/SGPT 21 U/L (12-78); BILIRUBIN,TOTAL 0.2 MG/DL (0.2-1.0); CALCIUM LEVEL 9.2 MG/DL (8.5-10.1); FOLATE 9.8 NG/ML; IRON (FE) 29 UG/DL (65-175); PERCENT SATURATION 11.9 % (19.7-50.0); TOTAL IRON BINDING CAPACITY 243 UG/DL (250-450); TOTAL PROTEIN 6.5 GM/DL (6.4-8.2); VITAMIN B12 LEVEL 1182 PG/ML
== END ==
LOC: M SFHCPLAZ 12:52
PROVIDERS: ATTEND Internal Medicine Infectious Disease
DX: B20 Human immunodeficiency virus [HIV] disease (principal); D50.0 Iron deficiency anemia secondary to blood loss (chronic); J98.4 Other disorders of lung

== ENCOUNTER 2021-06-04 17:04 | Inpatient (IN) | payer OTHER ==
[~2021-06-04] VITALS: Ht 157.5 cm; Wt 54.5 kg
[~2021-06-04 17:04] MED LIST changes: -FOLI400T13 PO; -MED REC COMMENT
[2021-06-04] MEDS ORDERED: ISOVUE-370 76% 100ML VIAL As Ordered ONE (18:41)
[2021-06-04] MEDS ORDERED: FOLI400T13 PO (18:42)
[2021-06-04] MEDS ORDERED: MED REC COMMENT (18:43)
[2021-06-04] MEDS ORDERED: HOME MED LIST COMPLETE! XX SCH (18:45)
[2021-06-04 19:51] LABS: RSV AMPLIFICATION NEGATIVE (NEGATIVE)
[2021-06-04 20:22] LABS: PROTHROMBIN TIME 13.4 SECONDS (12.5-14.3)
[2021-06-04 20:23] LABS: PARTIAL THROMBOPLASTIN TIME 30.5 SECONDS (24.2-38.5)
[2021-06-04] MEDS ORDERED: MOM 30ML SUSPENSION UDC PO PRN (23:45)
[2021-06-05] VITALS (8 sets, daily range): BP systolic 85–143; BP diastolic 50–74
[2021-06-05] MEDS ORDERED: ALBUTEROL 90 MCG/ACT 8GM HFA INHALER INH PRN (00:20)
[2021-06-05] MEDS: DOCUSATE SODIUM 100MG CAPSULE PO SCH ×4 (02:39→19:18)
[2021-06-05] MEDS: THIAMINE 100 MG TAB PO SCH ×3 (02:39→19:41)
[2021-06-05 06:34] LABS: HEMATOCRIT 34.4 % (42.0-52.0); MEAN CORPUSCULAR HGB CONC 32.6 g/dl (32.0-36.5); MEAN CORPUSCULAR VOLUME 101.5 fl (80.0-96.0); PLATELET COUNT, AUTOMATED 265 10^3/uL (150-450); RED BLOOD COUNT 3.39 10^6/uL (4.30-6.10); WHITE BLOOD COUNT 8.8 10^3/uL (4.0-10.0)
[2021-06-05 06:36] LABS: HEMOGLOBIN 11.2 g/dl (13.5-17.5)
[2021-06-05 08:50] LABS: ALT/SGPT 87 U/L (12-78); BILIRUBIN,TOTAL 0.6 MG/DL (0.2-1.0); BLOOD UREA NITROGEN 7 MG/DL (7-18); CALCIUM LEVEL 9.2 MG/DL (8.5-10.1); CARBON DIOXIDE LEVEL 25 MEQ/L (21-32); CHLORIDE LEVEL 104 MEQ/L (98-107); CREATININE FOR GFR 0.81 MG/DL (0.70-1.30); GLOMERULAR FILTRATION RATE > 60.0 (>56); GLUCOSE, FASTING 97 MG/DL (70-100); MAGNESIUM LEVEL 2.2 MG/DL (1.8-2.4); SODIUM LEVEL 136 MEQ/L (136-145); TOTAL PROTEIN 5.1 GM/DL (6.4-8.2)
[2021-06-05] MEDS: METOPROLOL SUCC *XL* 25MG TAB (TopROL *XL*) PO SCH (09:00)
[2021-06-05] MEDS ORDERED: BIKTARVY PO SCH (09:00)
[2021-06-05] MEDS: MULTIVITAMINS/MINERALS THERAP 1 TAB PO SCH (09:46)
[2021-06-05] MEDS: FOLIC ACID 1 MG TAB PO SCH (09:46)
[2021-06-05] MEDS: FERROUS GLUCONATE 324 MG TAB PO SCH (09:46)
[2021-06-05] MEDS: PANTOPRAZOLE 40MG TAB (PROTONIX) PO SCH (09:46)
[2021-06-05] MEDS: ENOXAPARIN 40MG/0.4ML SYRINGE (J1650 PER 10MG) SC SCH (09:51)
[2021-06-05] MEDS ORDERED: NS 1,000 ML IV ONE ×2 (09:55→11:50)
[2021-06-05] MEDS: ACETAMINOPHEN TAB 650MG DOSE (2X325MG) PO PRN (20:52)
[2021-06-06 06:00] VITALS: BP 110/68
[2021-06-06 06:34] LABS: HEMATOCRIT 29.1 % (42.0-52.0); MEAN CORPUSCULAR HEMOGLOBIN 32.7 pg (27.0-33.0); MEAN CORPUSCULAR HGB CONC 31.3 g/dl (32.0-36.5); MEAN CORPUSCULAR VOLUME 104.7 fl (80.0-96.0); PLATELET COUNT, AUTOMATED 239 10^3/uL (150-450); RED BLOOD COUNT 2.78 10^6/uL (4.30-6.10)
[2021-06-06 06:36] LABS: HEMOGLOBIN 9.1 g/dl (13.5-17.5)
[2021-06-06 06:42] LABS: BLOOD UREA NITROGEN 6 MG/DL (7-18); CALCIUM LEVEL 8.3 MG/DL (8.5-10.1); CARBON DIOXIDE LEVEL 22 MEQ/L (21-32); CHLORIDE LEVEL 113 MEQ/L (98-107); CREATININE FOR GFR 0.57 MG/DL (0.70-1.30); GLOMERULAR FILTRATION RATE > 60.0 (>56); GLUCOSE, FASTING 85 MG/DL (70-100); MAGNESIUM LEVEL 1.7 MG/DL (1.8-2.4); POTASSIUM SERUM 3.5 MEQ/L (3.5-5.1); SODIUM LEVEL 139 MEQ/L (136-145)
[2021-06-06 08:23] LABS: BASO % 0.7 % (0.0-1.0); EOS # 0.1 10^3/uL (0.0-0.5); EOS % 1.6 % (0.0-3.0); HEMATOCRIT 30.4 % (42.0-52.0); HEMOGLOBIN 9.6 g/dl (13.5-17.5); LYMPH # 0.9 10^3/uL (1.5-5.0); MEAN CORPUSCULAR HEMOGLOBIN 33.1 pg (27.0-33.0); MEAN CORPUSCULAR HGB CONC 31.6 g/dl (32.0-36.5); MEAN CORPUSCULAR VOLUME 104.8 fl (80.0-96.0); MONO % 17.4 % (2.0-8.0); NEUTROPHILS # 3.4 10^3/uL (1.5-8.5); NEUTROPHILS % 61.8 % (36.0-66.0); PLATELET COUNT, AUTOMATED 234 10^3/uL (150-450); WHITE BLOOD COUNT 5.6 10^3/uL (4.0-10.0)
[2021-06-06] MEDS: DOCUSATE SODIUM 100MG CAPSULE PO SCH ×2 (09:00→21:00)
[2021-06-06] MEDS: METOPROLOL SUCC *XL* 25MG TAB (TopROL *XL*) PO SCH ×2 (09:00→09:57)
[2021-06-06] MEDS: MAG SULF 1GM/100ML (MAG RUN) 1 GM in IV 1 EA IV ONE ×2 (09:30→09:55)
[2021-06-06] MEDS ORDERED: POTASSIUM CHLORIDE 10MEQ SR TABLET PO ONE (09:30)
[2021-06-06] MEDS: PANTOPRAZOLE 40MG TAB (PROTONIX) PO SCH (09:54)
[2021-06-06] MEDS: FOLIC ACID 1 MG TAB PO SCH (09:54)
[2021-06-06] MEDS: THIAMINE 100 MG TAB PO SCH ×2 (09:54→21:17)
[2021-06-06] MEDS: FERROUS GLUCONATE 324 MG TAB PO SCH (09:54)
[2021-06-06] MEDS: MULTIVITAMINS/MINERALS THERAP 1 TAB PO SCH (09:54)
[2021-06-06] MEDS: ENOXAPARIN 40MG/0.4ML SYRINGE (J1650 PER 10MG) SC SCH (09:57)
[2021-06-06 10:05] VITALS: BP 107/66
[2021-06-06] MEDS: LORazepam 2 MG TAB PO PRN (10:09)
[2021-06-06] MEDS ORDERED: MAGNESIUM OXIDE 400MG TAB (MAG-OX) PO ONE (11:10)
[2021-06-06 14:28] VITALS: BP 135/90
[2021-06-06] MEDS: ACETAMINOPHEN TAB 650MG DOSE (2X325MG) PO PRN (15:40)
[2021-06-06 18:00] VITALS: BP 107/66
[2021-06-06 22:00] VITALS: BP 128/87
[2021-06-07] VITALS (7 sets, daily range): BP systolic 95–138; BP diastolic 67–95
[2021-06-07 07:22] LABS: BLOOD UREA NITROGEN 7 MG/DL (7-18); CALCIUM LEVEL 8.5 MG/DL (8.5-10.1); CARBON DIOXIDE LEVEL 25 MEQ/L (21-32); CHLORIDE LEVEL 109 MEQ/L (98-107); CREATININE FOR GFR 0.63 MG/DL (0.70-1.30); GLOMERULAR FILTRATION RATE > 60.0 (>56); GLUCOSE, FASTING 80 MG/DL (70-100); MAGNESIUM LEVEL 1.6 MG/DL (1.8-2.4); POTASSIUM SERUM 3.9 MEQ/L (3.5-5.1); SODIUM LEVEL 139 MEQ/L (136-145)
[2021-06-07] MEDS: DOCUSATE SODIUM 100MG CAPSULE PO SCH ×2 (09:00→20:45)
[2021-06-07] MEDS: MAGNESIUM OXIDE 400MG TAB (MAG-OX) PO SCH ×2 (09:53→20:45)
[2021-06-07] MEDS: THIAMINE 100 MG TAB PO SCH (09:53)
[2021-06-07] MEDS: FERROUS GLUCONATE 324 MG TAB PO SCH (09:53)
[2021-06-07] MEDS: PANTOPRAZOLE 40MG TAB (PROTONIX) PO SCH (09:53)
[2021-06-07] MEDS: FOLIC ACID 1 MG TAB PO SCH (09:53)
[2021-06-07] MEDS: MULTIVITAMINS/MINERALS THERAP 1 TAB PO SCH (09:53)
[2021-06-07] MEDS: ENOXAPARIN 40MG/0.4ML SYRINGE (J1650 PER 10MG) SC SCH (09:54)
[2021-06-07] MEDS: ACETAMINOPHEN TAB 650MG DOSE (2X325MG) PO PRN (09:55)
[2021-06-07] MEDS: METOPROLOL SUCC *XL* 25MG TAB (TopROL *XL*) PO SCH (09:56)
[2021-06-07] MEDS ORDERED: NS 1,000 ML IV ONE (13:30)
[2021-06-07] MEDS: LORazepam 2 MG TAB PO PRN (15:51)
[2021-06-08 00:39] LABS: BASO # 0.1 10^3/uL (0.0-0.2); BASO % 1.6 % (0.0-1.0); EOS # 0.1 10^3/uL (0.0-0.5); HEMATOCRIT 31.5 % (42.0-52.0); HEMOGLOBIN 9.9 g/dl (13.5-17.5); LYMPH # 0.8 10^3/uL (1.5-5.0); LYMPH % 14.8 % (24.0-44.0); MEAN CORPUSCULAR HGB CONC 31.4 g/dl (32.0-36.5); MONO % 17.6 % (2.0-8.0); NEUTROPHILS # 3.4 10^3/uL (1.5-8.5); NEUTROPHILS % 59.6 % (36.0-66.0); PLATELET COUNT, AUTOMATED 232 10^3/uL (150-450); WHITE BLOOD COUNT 5.6 10^3/uL (4.0-10.0)
[2021-06-08 00:50] LABS: INR 0.93; PROTHROMBIN TIME 12.8 SECONDS (12.7-14.5)
[2021-06-08 01:01] LABS: ALBUMIN 1.9 GM/DL (3.2-5.2); ALT/SGPT 63 U/L (12-78); BILIRUBIN,TOTAL 0.3 MG/DL (0.2-1.0); BLOOD UREA NITROGEN 7 MG/DL (7-18); CALCIUM LEVEL 8.4 MG/DL (8.5-10.1); CARBON DIOXIDE LEVEL 26 MEQ/L (21-32); CHLORIDE LEVEL 105 MEQ/L (98-107); CREATININE FOR GFR 0.43 MG/DL (0.70-1.30); GLOMERULAR FILTRATION RATE > 60.0 (>56); GLUCOSE, FASTING 82 MG/DL (70-100); MAGNESIUM LEVEL 1.4 MG/DL (1.8-2.4); POTASSIUM SERUM 3.4 MEQ/L (3.5-5.1); SODIUM LEVEL 138 MEQ/L (136-145); TOTAL PROTEIN 4.8 GM/DL (6.4-8.2)
[2021-06-08 06:00] VITALS: BP 117/75
[2021-06-08 06:49] VITALS: BP_SYST 101; BP_SYST 95; BP_SYST 99; BP_DIAS 57; BP_DIAS 75; BP_DIAS 76
[2021-06-08 06:50] VITALS: BP 94/57
[2021-06-08] MEDS: MULTIVITAMINS/MINERALS THERAP 1 TAB PO SCH (07:35)
[2021-06-08] MEDS: FERROUS GLUCONATE 324 MG TAB PO SCH (07:35)
[2021-06-08] MEDS: FOLIC ACID 1 MG TAB PO SCH (07:36)
[2021-06-08] MEDS: PANTOPRAZOLE 40MG TAB (PROTONIX) PO SCH (07:36)
[2021-06-08] MEDS: DOCUSATE SODIUM 100MG CAPSULE PO SCH (07:36)
[2021-06-08] MEDS: MAGNESIUM OXIDE 400MG TAB (MAG-OX) PO SCH (07:36)
[2021-06-08] MEDS: ENOXAPARIN 40MG/0.4ML SYRINGE (J1650 PER 10MG) SC SCH (07:37)
[2021-06-08 09:00] VITALS: BP 94/58
[2021-06-08] MEDS: METOPROLOL SUCC *XL* 25MG TAB (TopROL *XL*) PO SCH (09:00)
[2021-06-08 14:00] VITALS: BP 99/66
[2021-06-08] MEDS ORDERED: LORazepam 1 MG TAB PO PRN (14:05)
== END 2021-06-08 18:10 | disposition home or self-care (01) | DRG 892 ==
LOC: M ED 17:04 → EDBD 17:04 → M ED INP 23:41 → ENRESERV 06-05 00:47 → M MSPAV 06-05 01:51
PROVIDERS: ADMIT Family Medicine; ATTEND Internal Medicine
DX: A15.9 Respiratory tuberculosis unspecified (principal); B20 Human immunodeficiency virus [HIV] disease; F10.10 Alcohol abuse, uncomplicated; D50.9 Iron deficiency anemia, unspecified; F17.210 Nicotine dependence, cigarettes, uncomplicated; B88.8 Other specified infestations; Z20.822 Contact with and (suspected) exposure to COVID-19; Z79.899 Other long term (current) drug therapy; Z88.8 Allergy status to other drugs, medicaments and biological substances

== ENCOUNTER → 2021-06-04 | Outpatient (CLI) | payer OTHER ==
[~2021-06-04] MED LIST changes: +FOLI400T13 PO; +MED REC COMMENT
[2021-06-04 14:21] LABS: BASO # 0.1 10^3/uL (0.0-0.2); EOS # 0.1 10^3/uL (0.0-0.5); EOS % 0.6 % (0.0-3.0); HEMATOCRIT 42.6 % (42.0-52.0); HEMOGLOBIN 13.7 g/dl (13.5-17.5); LYMPH # 0.9 10^3/uL (1.5-5.0); LYMPH % 8.7 % (24.0-44.0); MEAN CORPUSCULAR HEMOGLOBIN 32.9 pg (27.0-33.0); MEAN CORPUSCULAR HGB CONC 32.2 g/dl (32.0-36.5); MEAN CORPUSCULAR VOLUME 102.4 fl (80.0-96.0); MONO # 1.1 10^3/uL (0.0-0.8); MONO % 11.1 % (2.0-8.0); NEUTROPHILS # 7.5 10^3/uL (1.5-8.5); NEUTROPHILS % 76.2 % (36.0-66.0); PLATELET COUNT, AUTOMATED 293 10^3/uL (150-450); RED BLOOD COUNT 4.16 10^6/uL (4.30-6.10); WHITE BLOOD COUNT 9.9 10^3/uL (4.0-10.0)
[2021-06-04 14:51] LABS: ALBUMIN 2.8 GM/DL (3.2-5.2); ALT/SGPT 118 U/L (12-78); BILIRUBIN,TOTAL 0.7 MG/DL (0.2-1.0); BLOOD UREA NITROGEN 4 MG/DL (7-18); CALCIUM LEVEL 9.8 MG/DL (8.5-10.1); CARBON DIOXIDE LEVEL 22 MEQ/L (21-32); CHLORIDE LEVEL 100 MEQ/L (98-107); CREATININE FOR GFR 0.78 MG/DL (0.70-1.30); GLOMERULAR FILTRATION RATE > 60.0 (>56); GLUCOSE, FASTING 99 MG/DL (70-100); IRON (FE) 84 UG/DL (65-175); PERCENT SATURATION 46.7 % (19.7-50.0); POTASSIUM SERUM 4.3 MEQ/L (3.5-5.1); SODIUM LEVEL 133 MEQ/L (136-145); TOTAL IRON BINDING CAPACITY 180 UG/DL (250-450); TOTAL PROTEIN 6.9 GM/DL (6.4-8.2)
[2021-06-05 17:12] LABS: % CD8 Pos Lymph 43.4 % (12.0-35.5); %CD4 Pos Lymphs 46.3 % (30.8-58.5); ABS Basophils 0.1 x10E3/uL (0.0-0.2); ABS Lymphs 0.9 x10E3/uL (0.7-3.1); ABS Neutophils 7.4 x10E3/uL (1.4-7.0); Abs CD4 Helper 417 /uL (359-1519); Abs CD8 Suppres 391 /uL (109-897); CD4/CD8 Ratio 1.07 (0.92-3.72); Eosinophils 0 % (Not Estab.); HCT 41.5 % (37.5-51.0); HGB 13.4 g/dL (13.0-17.7); HIV-1 RNA PCR QUANT 2 LC550285 <20 copies/mL (.); Imm ABS Grans 0.2 x10E3/uL (0.0-0.1); Immature Grans 2 % (Not Estab.); Lymphocytes 9 % (Not Estab.); MCH 32.8 pg (26.6-33.0); MCHC 32.3 g/dL (31.5-35.7); MCV 102 fL (79-97); Monocytes 11 % (Not Estab.); Neutrophils 77 % (Not Estab.); Platelets 298 x10E3/uL (150-450); RBC 4.08 x10E6/uL (4.14-5.80); RDW 15.2 % (11.6-15.4); WBC 9.7 x10E3/uL (3.4-10.8)
== END ==
LOC: M PLALAB 12:55
PROVIDERS: ATTEND Internal Medicine Infectious Disease
DX: B20 Human immunodeficiency virus [HIV] disease (principal); D50.0 Iron deficiency anemia secondary to blood loss (chronic)

== ENCOUNTER → 2021-07-23 | Outpatient (CLI) | payer OTHER ==
[~2021-07-23] MED LIST changes: +FOLI400T13 PO; +MED REC COMMENT
--- NOTE | 2021-07-23 13:47 | REP ---
INDICATION: MYCOBACTERIUM AVIUM COMPARISON: 06/04/2021 TECHNIQUE: PA and lateral. FINDINGS: Diffuse chronic pleuroparenchymal changes with scattered oligemia and large bullae/chronic cavitary lesions again noted and unchanged. No obvious acute consolidation or effusion. No pneumothorax. Cardiac silhouette is normal. Skeletal structures are intact. IMPRESSION: Chronic pleuroparenchymal changes. No obvious acute process. <Electronically signed by Higinio Mast > 07/23/21 [id number]
== END ==
LOC: M PLAIMG 12:55
PROVIDERS: ATTEND Internal Medicine Infectious Disease
DX: A31.0 Pulmonary mycobacterial infection (principal)

== ENCOUNTER → 2021-07-23 | Outpatient (REF) | payer OTHER | LOC: M SFHCPLAZ 17:19 | PROVIDERS: ATTEND Internal Medicine Infectious Disease | DX: A31.0 Pulmonary mycobacterial infection (principal) ==

== ENCOUNTER → 2021-07-27 | Outpatient (REF) | payer OTHER | LOC: M SFHCPLAZ 18:41 | PROVIDERS: ATTEND Internal Medicine Infectious Disease | DX: A31.0 Pulmonary mycobacterial infection (principal) ==

== ENCOUNTER → 2021-09-10 | Outpatient (REF) | payer OTHER ==
[2021-09-10 20:11] LABS: ALBUMIN 2.1 GM/DL (3.2-5.2); ALT/SGPT 42 U/L (12-78); BILIRUBIN,TOTAL 0.3 MG/DL (0.2-1.0); BLOOD UREA NITROGEN 5 MG/DL (7-18); CALCIUM LEVEL 9.1 MG/DL (8.5-10.1); CARBON DIOXIDE LEVEL 23 MEQ/L (21-32); CHLORIDE LEVEL 103 MEQ/L (98-107); CREATININE FOR GFR 0.59 MG/DL (0.70-1.30); GLOMERULAR FILTRATION RATE > 60.0 (>56); GLUCOSE, FASTING 37 MG/DL (70-100); POTASSIUM SERUM 4.1 MEQ/L (3.5-5.1); SODIUM LEVEL 138 MEQ/L (136-145); TOTAL PROTEIN 5.8 GM/DL (6.4-8.2)
== END ==
LOC: M LAB REF 16:56
PROVIDERS: ATTEND Internal Medicine Infectious Disease
DX: B20 Human immunodeficiency virus [HIV] disease (principal); K29.20 Alcoholic gastritis without bleeding

== ENCOUNTER 2021-10-03 14:00 | Emergency (ER) | payer OTHER ==
[~2021-10-03] VITALS: Ht 157.5 cm; Wt 45.5 kg
--- OUTSIDE RECORDS SUMMARY | 2021-10-03 15:12 | CCD ---
Author Author [facility] Organization [facility] Address Unknown Phone Unavailable Care Team Providers Care Band Saw Runner Name Role Phone Snehal Marquez Unavailable PROBLEMS Type Condition ICD9-CM Code [id number] Code Onset Dates Condition S tatus W/U Status Risk SNOMED Code Notes Problem Tobacco abuse Z72.0 Active confirmed 413264 05 Problem Chronic obstructive pulmonary disease, unspecified COPD ty pe J44.9 Active confirmed 83802339 Problem Human immunodeficiency virus (HIV) disease B20 Active confirmed 35730266 Problem Tobacco abuse counseling Z71.6 Active confirmed 639808471 Problem Alcohol abuse F10.10 Active confirmed 706535 05 Problem COPD exacerbation J44.1 Active confirmed 19 8127896 Problem Closed compression fracture of first lumbar vert ebra, sequela S32.010S Active confirmed 917398458 Problem Lower extremity edema R60.0 Active confirmed 828228346 Problem Hypertension, unspecified type I10 Active confir med 68369773 Problem Cavitating mass of lung J98.4 Active confirmed 08265211 Problem Closed compression fracture of thoracic vertebra, sequela S22.000S Active confirmed 512740406 Problem 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 Active confirmed 978785604 Problem Alcoholic hepatitis without ascites K70.10 Acti ve confirmed 498879165 Problem Infestation by bed bug B88.8 Active confirmed 74062367 Problem Iron deficiency anemia due to chronic blood loss D 50.0 Active confirmed 845568706 Problem Chronic alcoholic gastritis with hemorrhage K29.21 Active confirmed 41360232705073 Problem Chest pain, unspecified type R07.9 Active confirme d 82487611 ALLERGIES Allergen (clinical drug ingredient) Drug/Non Drug Allergy do cumented on EMR Reaction Allergy Type Onset Date Status sulfamethoxazole / trimethoprim Bactrim([facility] Code:[address]-58) Rash Drug Allergy Active abacavir Ziagen([facility] Code:[address]-68) Rash Drug Allergy Active ENCOUNTERS from 1965 to 2021-07-26 Encounter Location Date Provider Diagnosis [facility] [place] [address] [facility] [phone] [place] [address] 19 Jul, 2021 Snehal Alma IMMUNIZATIONS Vaccine Route Administration Date Status Meningococcal 0.5mL Menveo Groups A,C,Y & W-135 IM Intramuscular Oct 24, 2017 Administered Meningococcal 0.5mL Menveo Groups A,C,Y & W-135 IM Intramuscular April 10, 2018 Administered Influenza 18 yrs & older Flublok IM Intramuscular Oct 09, 2018 Administered Influenza 18 yrs & older Flublok IM Intramuscular Sep 25, 2019 Administered zz*PPD (DO NOT USE) ID Intradermal March 20, 2012 Administered TDAP IM Intramuscular March 20, 2012 Administered Pneumococcal 0.5mL Prevnar 13 IM Intramuscular Nov 16, 2012 A dministered DT Unknown February 15, 2007 Administered Hepatitis A & B 1mL Twinrix IM Intramuscular February 15, 2011 Adm inistered Hepatitis A & B 1mL Twinrix IM Intramuscular Oct 05, 2010 Adm inistered Pneumococcal Adult 0.5mL Pneumovax 23 Unknown Nov 13 10 Administered Influenza 6mo & up Fluzone IM Intramuscular Jul 25, 2017 Admi nistered Influenza 6mo & up Fluzone IM Intramuscular Aug 25, 2015 Admi nistered Influenza 6mo & up Fluzone IM Intramuscular Jul 23, 2014 Admi nistered Influenza 6mo & up Fluzone IM Intramuscular Jul 18, 2012 Admi nistered Influenza 6mo & up Fluzone IM Intramuscular Oct 05, 2010 Admi nistered SOCIAL HISTORY Tobacco Use: Social History Observation Description Date Details (start date - stop date) Current Smoker Sex Assigned At : Social History Observation Description Sex Assigned At Unknown Education: Question Answer Notes Level of Education: GED Sexual Hx: Question Answer Notes Had sex in the last 12 months (vaginal, oral, or anal)? No Alcohol Screening: Question Answer Notes Did you have a drink containing alcohol in the past year? Ye s Points 11 Interpretation Positive How often did you have six or more drinks on one occas ion in the past year? Daily or almost daily (4 points) How many drinks did you have on a typica l day when you were drinking in the past year? 7 to 9 (3 points) How often did you have a drink containing alcohol in t he past year? Four or more times a week (4 points) Tobacco Use: Question Answer Notes Are you a: current smoker Smoking Cessation Information Given 11/27/2019 Patient counseled on the dangers of tobacco use and urged to quit: 11/27/2019 How many cigarettes a day do you smoke? 11-20 Are you interested in quitting? Not ready to quit Counseled the patient on smoking effects, education provided 11/27/2019 pt does not want any education material REASON FOR REFERRAL No Information VITAL SIGNS No information MEDICATIONS Medication SIG (Take, Route, Frequency, Duration) Notes Start Da te End Date Status Pantoprazole Sodium 40 MG TAKE ONE TABLET BY MOUTH EVERY DAY for 30 Active Ibuprofen 600 MG 1 tablet with food or milk Orally Three times a da y for 20 Not-Taking Albuterol Sulfate HFA 108 (90 Base) MCG/ACT 2 puffs as needed Inhalation every 4 hrs for 30 Days Active Daily-Shivam Multivitamin - 1 tablet Orally Once a day for 30 day( s) Apr, Active Biktarvy 50-200-25 MG 1 tablet Orally Once a day for 30 Active Ventolin HFA 108 (90 Base) MCG/ACT INHALE TWO PUFFS BY MOUTH EVERY 4 HOURS NEEDED for 16 Active Hydrocortisone 2.5 % 1 application to affected area External ly bid for 30 Days Not-Taking Folic Acid 1 MG 1 tablet Orally Once a day for 30 day(s) Active Multivitamin - 1 tablet Orally Once a day for 30 day(s) Active Cefdinir 300 MG 1 cap Orally bid for 7 day(s) Jul, Active Ferrous Gluconate 324 (38 Fe) MG 1 tablet with water o r juice between meals Orally Once a day for 30 Active Biktarvy 50-200-25 MG 1 tablet Orally Once a day for 30 Days Active Vitamin B-1 250 MG as directed Orally Active Stiolto Respimat 2.5-2.5 MCG/ACT 2 puffs Inhalation Once a day Not-Taking Ferrous Gluconate 324 (38 Fe) MG 1 tablet with water o r juice between meals Orally Once a day for 30 day(s) Active Pantoprazole Sodium 40 MG 1 tablet Orally Once a day for 30 Active PROCEDURES No Information RESULTS No Results REASON FOR VISIT No Information MEDICAL (GENERAL) HISTORY Type Description Date 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 difficile colitis Surgical History No Surgical history information Hospitalization History pcp 2000 Hospitalization History blood transfusion 2019 Goals Section No Information Health Concerns No Information MEDICAL EQUIPMENT No Information MENTAL STATUS No Information FUNCTIONAL STATUS No Information ASSESSMENTS No Information PLAN OF TREATMENT Medication Medication Name Sig Start Date Stop Date Ferrous Gluconate 324 (38 Fe) MG 1 tablet with water o r juice between meals Orally Once a day for 30 day(s) Cefdinir 300 MG 1 cap Orally bid for 7 day(s) Jul, Albuterol Sulfate HFA 108 (90 Base) MCG/ACT 2 puffs as needed Inhalation every 4 hrs for 30 Days Biktarvy 50-200-25 MG 1 tablet Orally Once a day for 30 Days Pantoprazole Sodium 40 MG 1 tablet Orally Once a day for 30 Multivitamin - 1 tablet Orally Once a day for 30 day(s) Next Appt Details Provider Name:Snehal Marquez, 2020-11-0 4 10:30:00 AM, [address] [place] [address], , [place], [place], [facility], Insurance Providers Payer Name Payer Address Payer Phone Insured Name Patient Relati onship to Insured Coverage Start Date Coverage End Date [facility] [employer] [facility] [address] [facility] [id number] [place] W[place] self
--- OUTSIDE RECORDS SUMMARY | 2021-10-03 15:12 | CCD ---
Author Author [facility] Organization [facility] Address Unknown Phone Unavailable Care Team Providers Care Package Sealer Name Role Phone Snehal Marquez Unavailable PROBLEMS Type Condition ICD9-CM Code [id number] Code Onset Dates Condition S tatus W/U Status Risk SNOMED Code Notes Problem Chronic obstructive pulmonary disease, unspecified COPD ty pe J44.9 Active confirmed 93930512 Problem Tobacco abuse counseling Z71.6 Active confirmed 840513192 Problem Tobacco abuse Z72.0 Active confirmed 720375 05 Problem COPD exacerbation J44.1 Active confirmed 19 0495140 Problem Human immunodeficiency virus (HIV) disease B20 Active confirmed 82453085 Problem Closed compression fracture of thoracic vertebra, sequela S22.000S Active confirmed 884800926 Problem Closed compression fracture of first lumbar vert ebra, sequela S32.010S Active confirmed 323375132 Problem Lower extremity edema R60.0 Active confirmed 611793432 Problem Chest pain, unspecified type R07.9 Active confirme d 62717185 Problem Alcoholic hepatitis without ascites K70.10 Acti ve confirmed 748820239 Problem Cavitating mass of lung J98.4 Active confirmed 50696736 Problem Alcohol abuse F10.10 Active confirmed 032453 05 Problem Hypertension, unspecified type I10 Active confir med 07151168 Problem Infestation by bed bug B88.8 Active confirmed 86616129 Problem Iron deficiency anemia due to chronic blood loss D 50.0 Active confirmed 602161321 Problem Chronic alcoholic gastritis with hemorrhage K29.21 Active confirmed 98197581628857 ALLERGIES Allergen (clinical drug ingredient) Drug/Non Drug Allergy do cumented on EMR Reaction Allergy Type Onset Date Status sulfamethoxazole / trimethoprim Bactrim([facility] Code:[address]-73) Rash Drug Allergy Active abacavir Ziagen([facility] Code:[address]-19) Rash Drug Allergy Active ENCOUNTERS from 1964 to 2021-07-07 Encounter Location Date Provider Diagnosis [facility] [address] [facility] [phone] [place] [address] Jun, Snehal Marquez IMMUNIZATIONS Vaccine Route Administration Date Status Meningococcal 0.5mL Menveo Groups A,C,Y & W-135 IM Intramuscular Oct 24, 2017 Administered Meningococcal 0.5mL Menveo Groups A,C,Y & W-135 IM Intramuscular April 10, 2018 Administered Influenza 18 yrs & older Flublok IM Intramuscular Oct 09, 2018 Administered Influenza 18 yrs & older Flublok IM Intramuscular Sep 25, 2019 Administered Pneumococcal 0.5mL Prevnar 13 IM Intramuscular Nov 16, 2012 A dministered Influenza 6mo & up Fluzone IM Intramuscular Aug 25, 2015 Admi nistered Influenza 6mo & up Fluzone IM Intramuscular Jul 25, 2017 Admi nistered DT Unknown February 15, 2007 Administered TDAP IM Intramuscular March 20, 2012 Administered zz*PPD (DO NOT USE) ID Intradermal March 20, 2012 Administered Hepatitis A & B 1mL Twinrix [...] Notes Start Da te End Date Status Ventolin HFA 108 (90 Base) MCG/ACT INHALE TWO PUFFS BY MOUTH EVERY 4 HOURS NEEDED for 16 Active Ibuprofen 600 MG 1 tablet with food or milk Orally Three times a da y for 20 Not-Taking Ferrous Gluconate 324 (38 Fe) MG 1 tablet with water o r juice between meals Orally Once a day for 30 Active Albuterol Sulfate HFA 108 (90 Base) MCG/ACT 2 puffs as needed Inhalation every 4 hrs for 30 Days Active Vitamin B-1 250 MG as directed Orally Active Daily-Shivam Multivitamin - 1 tablet Orally Once a day for 30 day( s) Apr, Active Hydrocortisone 2.5 % 1 application to affected area External ly bid for 30 Days Not-Taking Biktarvy 50-200-25 MG 1 tablet Orally Once a day for 30 Active Pantoprazole Sodium 40 MG TAKE ONE TABLET BY MOUTH EVERY DAY for 30 Active Stiolto Respimat 2.5-2.5 MCG/ACT 2 puffs Inhalation Once a day Not-Taking Ferrous Gluconate 324 (38 Fe) MG 1 tablet with water o r juice between meals Orally Once a day for 30 day(s) Active Folic Acid 1 MG 1 tablet Orally Once a day for 30 day(s) Active Multivitamin - 1 tablet Orally Once a day for 30 day(s) Active Biktarvy 50-200-25 MG 1 tablet Orally Once a day for 30 Days Active PROCEDURES No Information RESULTS No Results REASON FOR VISIT AFB smear MEDICAL (GENERAL) HISTORY Type Description Date Medical History /2001 CD4 11 3% HLA B5701 positive Medical [...] Medication Name Sig Start Date Stop Date Multivitamin - 1 tablet Orally Once a day for 30 day(s) Albuterol Sulfate HFA 108 (90 Base) MCG/ACT 2 puffs as needed Inhalation every 4 hrs for 30 Days Pantoprazole Sodium 40 MG TAKE ONE TABLET BY MOUTH EVERY DAY for 30 Ferrous Gluconate 324 (38 Fe) MG 1 tablet with water o r juice between meals Orally Once a day for 30 day(s) Biktarvy 50-200-25 MG 1 tablet Orally Once a day for 30 Days Next Appt Details Provider Name:Snehal Marquez, 2021-07-08 6 12:30:00 AM, [address] [place] [address] , [place], [address], Provider Name:Snehal Marquez, 4 10:30:00 AM, [address] [place] [address] , [place], [address], Insurance Providers Payer Name Payer Address Payer Phone Insured Name Patient Relati onship to Insured Coverage Start Date Coverage End Date [facility] [employer] [facility] [address] [facility] [phone] [place] self
--- OUTSIDE RECORDS SUMMARY | 2021-10-03 15:12 | CCD ---
Author Author [facility] Organization [facility] Address Unknown Phone Unavailable Care Team Providers Care Senior Oracle Soa Developer Name Role Phone Snehal Marquez Unavailable PROBLEMS ALLERGIES ENCOUNTERS from 1964 to 2021-09-21 IMMUNIZATIONS SOCIAL HISTORY REASON FOR REFERRAL No Information VITAL SIGNS MEDICATIONS PROCEDURES from 1964 to 2021-09-21 RESULTS REASON FOR VISIT MEDICAL (GENERAL) HISTORY Goals Section Health Concerns MEDICAL EQUIPMENT No Information MENTAL STATUS FUNCTIONAL STATUS ASSESSMENTS PLAN OF TREATMENT Insurance Providers
--- OUTSIDE RECORDS SUMMARY | 2021-10-03 15:12 | CCD ---
Author Author [facility] Organization [facility] Address Unknown Phone Unavailable Care Team Providers Care Computer Technician Name Role Phone Snehal Marquez Unavailable PROBLEMS Type Condition ICD9-CM Code [id number] Code Onset Dates Condition S tatus W/U Status Risk SNOMED Code Notes Problem Tobacco abuse Z72.0 Active confirmed 035807 05 Problem Chronic obstructive pulmonary disease, unspecified COPD ty pe J44.9 Active confirmed 08232310 Problem Human immunodeficiency virus (HIV) disease B20 Active confirmed 65692123 Problem Tobacco abuse counseling Z71.6 Active confirmed 280911040 Problem Alcohol abuse F10.10 Active confirmed 334601 05 Problem COPD exacerbation J44.1 Active confirmed 19 4826639 Problem Closed compression fracture of first lumbar vert ebra, sequela S32.010S Active confirmed 046507746 Problem Lower extremity edema R60.0 Active confirmed 613609750 Problem Hypertension, unspecified type I10 Active confir med 83467805 Problem Cavitating mass of lung J98.4 Active confirmed 11845247 Problem Closed compression fracture of thoracic vertebra, sequela S22.000S Active confirmed 595925345 Problem 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 Active confirmed 876201395 Problem Alcoholic hepatitis without ascites K70.10 Acti ve confirmed 514417736 Problem Infestation by bed bug B88.8 Active confirmed 72317698 Problem Iron deficiency anemia due to chronic blood loss D 50.0 Active confirmed 347431448 Problem Chronic alcoholic gastritis with hemorrhage K29.21 Active confirmed 94457432882954 Problem Chest pain, unspecified type R07.9 Active confirme d 43287868 ALLERGIES Allergen (clinical drug ingredient) Drug/Non Drug Allergy do cumented on EMR Reaction Allergy Type Onset Date Status sulfamethoxazole / trimethoprim Bactrim([facility] Code:[address]-98) Rash Drug Allergy Active abacavir Ziagen([facility] Code:[address]-96) Rash Drug Allergy Active ENCOUNTERS from 1965 to 2021-08-12 Encounter Location Date Provider [facility] [address] [facility] [phone] [place] [address] Aug, Snehal Marquez IMMUNIZATIONS Vaccine Route Administration Date Status Meningococcal 0.5mL Menveo Groups A,C,Y & W-135 IM Intramuscular Oct 24, 2017 Administered Meningococcal 0.5mL Menveo Groups A,C,Y & W-135 IM Intramuscular April 10, 2018 Administered Influenza 18 yrs & older Flublok IM Intramuscular Oct 09, 2018 Administered Influenza 18 yrs & older Flublok IM Intramuscular Sep 25, 2019 Administered Hepatitis A & B 1mL Twinrix IM Intramuscular Oct 05, 2010 Adm inistered Hepatitis A & B 1mL Twinrix IM Intramuscular February 15, 2011 Adm inistered zz*PPD (DO NOT USE) ID Intradermal March 20, 2012 Administered DT Unknown February 15, 2007 Administered Pneumococcal Adult 0.5mL Pneumovax 23 Unknown Nov 13 10 Administered TDAP IM Intramuscular March 20, 2012 [...] times a da y for 20 Not-Taking Multivitamin - 1 tablet Orally Once a day for 30 day(s) Active Cefdinir 300 MG 1 cap Orally bid for 7 day(s) Jul, Active Ventolin HFA 108 (90 Base) MCG/ACT INHALE TWO PUFFS BY MOUTH EVERY 4 HOURS NEEDED for 16 Active Daily-Shivam Multivitamin - 1 tablet Orally Once a day for 30 day( s) Apr, Active Biktarvy 50-200-25 MG 1 tablet Orally Once a day for 30 Active Folic Acid 1 MG 1 tablet Orally Once a day for 30 day(s) Active Albuterol Sulfate HFA 108 (90 Base) MCG/ACT INHALE TWO PUFFS BY MOUTH EVERY 4 HOURS NEEDED for 17 Active Breo Ellipta 200-25 MCG/INH 1 puff Inhalation Once a day for 30 Days Aug, Active Ferrous Gluconate 324 (38 Fe) MG 1 tablet with water o r juice between meals Orally Once a day for 30 Active Biktarvy 50-200-25 MG 1 tablet Orally Once a day for 30 Days Active Vitamin B-1 250 MG as directed Orally Active Hydrocortisone 2.5 % 1 application to affected area External ly bid for 30 Days Not-Taking Ferrous Gluconate 324 (38 Fe) MG 1 tablet with water o r juice between meals Orally Once a day for 30 day(s) Active Pantoprazole Sodium 40 MG 1 tablet Orally Once a day for 30 Active PROCEDURES No Information RESULTS No Results REASON FOR VISIT sputum test results MEDICAL (GENERAL) HISTORY Type Description Date Medical [...] Medication Name Sig Start Date Stop Date Breo Ellipta 200-25 MCG/INH 1 puff Inhalation Once a day for 30 Days Aug, Cefdinir 300 MG 1 cap Orally bid for 7 day(s) Jul, Biktarvy 50-200-25 MG 1 tablet Orally Once a day for 30 Days Ferrous Gluconate 324 (38 Fe) MG 1 tablet with water o r juice between meals Orally Once a day for 30 day(s) Albuterol Sulfate HFA 108 (90 Base) MCG/ACT INHALE TWO PUFFS BY MOUTH EVERY 4 HOURS NEEDED for 17 Multivitamin - 1 tablet Orally Once a day for 30 day(s) Pantoprazole Sodium 40 MG 1 tablet Orally Once a day for 30 Next Appt Details Provider Name:Snehal Marquez, 2020-11-0 4 10:30:00 AM, [address] [place] [address], , [place], [address], Insurance Providers Payer Name Payer Address Payer Phone Insured Name Patient Relati onship to Insured Coverage Start Date Coverage End Date REPLACED BY [facility] [employer] [facility] [address] [facility] [phone] ENID WANG self
--- OUTSIDE RECORDS SUMMARY | 2021-10-03 15:12 | CCD ---
Author Author [facility] Organization [facility] Address Unknown Phone Unavailable Care Team Providers Care Gang Drill Press Operator Name Role Phone Snehal Marquez Unavailable PROBLEMS Type Condition ICD9-CM Code ZHO22-EE Code Onset Dates Condition S tatus W/U Status Risk SNOMED Code Notes Problem Chronic obstructive pulmonary disease, unspecified COPD ty pe J44.9 Active confirmed 65377433 Problem Tobacco abuse counseling Z71.6 Active confirmed 617234332 Problem Tobacco abuse Z72.0 Active confirmed 365814 05 Problem COPD exacerbation J44.1 Active confirmed 19 9460108 Problem Human immunodeficiency virus (HIV) disease B20 Active confirmed 34114521 Problem Alcoholic hepatitis without ascites K70.10 Acti ve confirmed 645012664 Problem Alcohol abuse F10.10 Active confirmed 803475 05 Problem Lower extremity edema R60.0 Active confirmed 799285317 Problem Hypertension, unspecified type I10 Active confir med 66042687 Problem Infestation by bed bug B88.8 Active confirmed 08479429 Problem Acute alcoholic gastritis, presence of bleeding unspecifie d K29.20 Active confirmed 9888241 Problem Closed compression fracture of first lumbar vert ebra, sequela S32.010S Active confirmed 037614778 Problem 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 Active confirmed 768054274 Problem Closed compression fracture of thoracic vertebra, sequela S22.000S Active confirmed 890259617 Problem Iron deficiency anemia due to chronic blood loss D 50.0 Active confirmed 120201473 Problem Chronic alcoholic gastritis with hemorrhage K29.21 Active confirmed 81995117056118 Problem Chest pain, unspecified type R07.9 Active confirme d 01071355 Problem Cavitating mass of lung J98.4 Active confirmed 31833277 ALLERGIES Allergen (clinical drug ingredient) Drug/Non Drug Allergy do cumented on EMR Reaction Allergy Type Onset Date Status sulfamethoxazole / trimethoprim Bactrim([facility] Code:[address]-92) Rash Drug Allergy Active abacavir Ziagen([facility] Code:[address]-80) Rash Drug Allergy Active ENCOUNTERS from 1965 to 2021-09-11 Encounter Location Date Provider Diagnosis [facility] Infectious Disease [place] [address] [facility] [phone] [place] [address] 04 Sep, 2021 Snehal Alma IMMUNIZATIONS Vaccine Route Administration [...] dministered DT Unknown February 15, 2007 Administered Influenza 18 yrs & older Flublok IM Intramuscular Sep 10, 2021 Administered Hepatitis A & B 1mL Twinrix [...] Notes Start Da te End Date Status Vitamin B-1 250 MG as directed Orally Active Albuterol Sulfate HFA 108 (90 Base) MCG/ACT INHALE TWO PUFFS BY MOUTH EVERY 4 HOURS NEEDED for 17 Active Biktarvy 50-200-25 MG 1 tablet Orally Once a day for 30 Days Active Pantoprazole Sodium 40 MG 1 tablet Orally Once a day for 30 Active Breo Ellipta 200-25 MCG/INH 1 puff Inhalation Once a day for 30 Days Aug, Active Biktarvy 50-200-25 MG 1 tablet Orally Once a day for 30 Active Ferrous Gluconate 324 (38 Fe) MG 1 tablet with water o r juice between meals Orally Daily Active Multivitamin - 1 tablet Orally Once a day for 30 day(s) Active Ferrous Gluconate 324 (38 Fe) MG 1 tablet with water o r juice between meals Orally Once a day for 30 day(s) Active Albuterol Sulfate HFA 108 (90 Base) MCG/ACT 2 puffs as needed Inhalation every 4 hrs for 30 Days Active Folic Acid 1 MG 1 tablet Orally Once a day for 30 day(s) Active Acetaminophen 500 MG 1 capsule as needed Orally e very 6 hours as needed (MDD 3000 mg) for 30 Days Sep, Active Metoprolol Succinate 25 MG 1 capsule Orally Once a day for 30 day(s) Active Aldactone 25 MG 1 tablet Orally Daily for 30 day(s) Sep Active PROCEDURES No Information RESULTS No Results [...] Medication Name Sig Start Date Stop Date Biktarvy 50-200-25 MG 1 tablet Orally Once a day for 30 Days Acetaminophen 500 MG 1 capsule as needed Orally e very 6 hours as needed (MDD 3000 mg) for 30 Days Sep, Multivitamin - 1 tablet Orally Once a day for 30 day(s) Pantoprazole Sodium 40 MG 1 tablet Orally Once a day for 30 Ferrous Gluconate 324 (38 Fe) MG 1 tablet with water o r juice between meals Orally Once a day for 30 day(s) Albuterol Sulfate HFA 108 (90 Base) MCG/ACT 2 puffs as needed Inhalation every 4 hrs for 30 Days Aldactone 25 MG 1 tablet Orally Daily for 30 day(s) Sep, Next Appt Details Provider Name:Snehal Marquez, 2021-12-1 0 08:30:00 AM, [address] [place] [address], , [place], [address], Insurance Providers Payer Name Payer Address Payer Phone Insured Name Patient Relati onship to Insured Coverage Start Date Coverage End Date [facility] [employer] [facility] [address] [facility] [phone] ENID WANG self
--- OUTSIDE RECORDS SUMMARY | 2021-10-03 15:12 | CCD ---
Author Author [facility] Organization [facility] Address Unknown Phone Unavailable Care Team Providers Care Frit Mixer Name Role Phone Snehal Marquez Unavailable PROBLEMS Type Condition ICD9-CM Code [id number] Code Onset Dates Condition S tatus W/U Status Risk SNOMED Code Notes Problem Tobacco abuse Z72.0 Active confirmed 574325 05 Problem Chronic obstructive pulmonary disease, unspecified COPD ty pe J44.9 Active confirmed 63458414 Problem Human immunodeficiency virus (HIV) disease B20 Active confirmed 25646296 Problem Tobacco abuse counseling Z71.6 Active confirmed 552902660 Problem Alcohol abuse F10.10 Active confirmed 747845 05 Problem COPD exacerbation J44.1 Active confirmed 19 0771185 Problem Closed compression fracture of first lumbar vert ebra, sequela S32.010S Active confirmed 030353538 Problem Lower extremity edema R60.0 Active confirmed 074079147 Problem Hypertension, unspecified type I10 Active confir med 74977289 Problem Cavitating mass of lung J98.4 Active confirmed 52114931 Problem Closed compression fracture of thoracic vertebra, sequela S22.000S Active confirmed 380348533 Problem 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 Active confirmed 818575807 Problem Alcoholic hepatitis without ascites K70.10 Acti ve confirmed 023131858 Problem Infestation by bed bug B88.8 Active confirmed 84143345 Problem Iron deficiency anemia due to chronic blood loss D 50.0 Active confirmed 124433555 Problem Chronic alcoholic gastritis with hemorrhage K29.21 Active confirmed 38279846264554 Problem Chest pain, unspecified type R07.9 Active confirme d 28954983 ALLERGIES Allergen (clinical drug ingredient) Drug/Non Drug Allergy do cumented on EMR Reaction Allergy Type Onset Date Status sulfamethoxazole / trimethoprim Bactrim([facility] Code:[address]-71) Rash Drug Allergy Active abacavir Ziagen([facility] Code:[address]-90) Rash Drug Allergy Active ENCOUNTERS from 1965 to 2021-08-10 Encounter Location Date Provider Diagnosis [facility] [address] [facility] [phone] [place] [address] Aug, Snehal Marquez Chronic obstructive pulmonar y disease, unspecified COPD type J44.9 IMMUNIZATIONS Vaccine Route Administration Date Status Meningococcal [...] every 4 hrs for 30 Days Active Cefdinir 300 MG 1 cap Orally [...] Once a day for 30 day(s) Active Breo Ellipta 200-25 MCG/INH 1 puff [...] Information RESULTS No Results REASON FOR VISIT refill MEDICAL (GENERAL) HISTORY Type Description Date Medical [...] No Information FUNCTIONAL STATUS No Information ASSESSMENTS Encounter Date Diagnosis Assessment Notes Treatment Notes Treatm ent Clinical Notes Aug, Chronic obstructive pulmonar y disease, unspecified COPD type (ICD- 10 - J44.9) PLAN OF TREATMENT Medication Medication Name Sig [...] Orally Once a day for 30 day(s) Multivitamin - 1 tablet Orally Once a day for 30 day(s) Albuterol Sulfate HFA 108 (90 Base) MCG/ACT 2 puffs as needed Inhalation every 4 hrs for 30 Days Pantoprazole Sodium 40 MG 1 tablet Orally Once a day for 30 Next Appt Details Provider Name:Lizabay Marquez, 2020-11-0 4 10:30:00 AM, [address] [facility], , [place], [address], Insurance Providers Payer Name Payer Address Payer Phone Insured Name Patient Relati onship to Insured Coverage Start Date Coverage End Date [facility] [address] [facility] [phone] ENID WANG self
--- OUTSIDE RECORDS SUMMARY | 2021-10-03 15:12 | CCD ---
Author Author [facility] Organization [facility] Address Unknown Phone Unavailable Care Team Providers Care Executive Chairman Name Role Phone Snehal Marquez Unavailable PROBLEMS Type Condition ICD9-CM Code TMC24-NO Code Onset Dates Condition S tatus W/U Status Risk SNOMED Code Notes Problem Tobacco abuse Z72.0 Active confirmed 396303 05 Problem Chronic obstructive pulmonary disease, unspecified COPD ty pe J44.9 Active confirmed 38538970 Problem Human immunodeficiency virus (HIV) disease B20 Active confirmed 38713360 Problem Tobacco abuse counseling Z71.6 Active confirmed 199059651 Problem Alcohol abuse F10.10 Active confirmed 587126 05 Problem COPD exacerbation J44.1 Active confirmed 19 7334395 Problem Closed compression fracture of first lumbar vert ebra, sequela S32.010S Active confirmed 758208298 Problem Lower extremity edema R60.0 Active confirmed 688782456 Problem Hypertension, unspecified type I10 Active confir med 54820269 Problem Cavitating mass of lung J98.4 Active confirmed 24243485 Problem Closed compression fracture of thoracic vertebra, sequela S22.000S Active confirmed 772068306 Problem 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 Active confirmed 863320687 Problem Alcoholic hepatitis without ascites K70.10 Acti ve confirmed 890090563 Problem Infestation by bed bug B88.8 Active confirmed 46490766 Problem Iron deficiency anemia due to chronic blood loss D 50.0 Active confirmed 588030278 Problem Chronic alcoholic gastritis with hemorrhage K29.21 Active confirmed 37006947679012 Problem Chest pain, unspecified type R07.9 Active confirme d 92392268 ALLERGIES Allergen (clinical drug ingredient) Drug/Non Drug Allergy do cumented on EMR Reaction Allergy Type Onset Date Status sulfamethoxazole / trimethoprim Bactrim([facility] Code:[address]-94) Rash Drug Allergy Active abacavir Ziagen([facility] Code:[address]-75) Rash Drug Allergy Active ENCOUNTERS from 1965 to 2021-07-31 Encounter Location Date Provider Diagnosis [facility] Infectious Disease [place] [address] [facility] [phone] [place] [address] 16 Jul, 2021 Lizabay Alma Human immunodeficien cy virus (HIV) disease B20 ; 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 ; Chronic obstructive pulmonary disease, unspecified COPD type J44.9 ; Tobacco abuse Z72.0 ; Hypertension, unspecified type I10 ; Iron deficiency anemia due to chronic blood loss D50.0 ; Alcoholic hepatitis without ascites K70.10 ; Acute alcoholic gastritis, presence of bleeding unspecified K29.20 ; Cavitating mass of lung J98.4 and Infestation by bed bug B88.8 IMMUNIZATIONS Vaccine Route Administration Date Status Meningococcal [...] REASON FOR REFERRAL No Information VITAL SIGNS Weight 98 lbs Jul, Weight-kg 44.45 kg Jul, Height 61 in Jul, BMI 18.51 kg/m2 Jul, Heart Rate 114 /min Jul, Respiratory Rate 18 /min Jul, Temperature 97.6 degrees Fahrenheit Jul, Oximetry 99% Jul, Blood pressure systolic 132 mm Hg Jul, Blood pressure diastolic 78 mm Hg Jul, MEDICATIONS Medication SIG (Take, Route, Frequency, Duration) [...] for 30 Active PROCEDURES No Information RESULTS Component Value Reference Range AFB SMEAR & CULTURE Reviewed date:07/24/2021 11:42:03 Interpretation: Performing Lab:[facility] LABORATORY [address] [facility] [address] , ,[place] [id number] SPUTUM CULTURE AND GRAM STAIN Reviewed date:07/24/2021 11:42:03 Interpretation: Performing Lab:[facility] LABORAT[facility] [address] [facility] [address] , ,[place] [id number] SPUTUM CULTURE AND GRAM STAIN Reviewed date:07/26/2021 13:52:24 Interpretation: Performing Lab:[facility] LABORAT[facility] [address] [facility] [address] , ,[place] [id number] REASON FOR VISIT 2 week follow up MEDICAL (GENERAL) HISTORY Type Description Date Medical History CD4 11 3% HLA B5701 positive Medical [...] No Surgical history information Hospitalization History pcp 2001 Hospitalization History blood transfusion 2019 Goals Section No Information Health Concerns No Information MEDICAL EQUIPMENT No Information MENTAL STATUS No Information FUNCTIONAL STATUS No Information ASSESSMENTS Encounter Date Diagnosis Assessment Notes Treatment Notes Treatm ent Clinical Notes Jul, Human immunodeficiency virus (HIV) disease (ICD- 10 - B20) He is 100% compliant with HIV medication. His last viral load was undetected CD4 count 417 06/2021, doing well taking his medication. Jul, Mycobacterium avium complex (ICD-10 - A31.0) 06/04/2021-06/08/2021/ negative AFb culture , 11/09 MAC 03/2021 1 sputum AFB culture was positive for M. Xenopi Chest CT 05/2021 showed marked improvement in infiltrates with severe emphysema. He has a chronic cough with 2 different mycobacteria patient could be colonized but also could have nontuberculous mycobacteria disease , may benefit from treatment. I am concerned about 3 drug regimen use of rifampin in somebody who is an alcoholic and does not eat. I will obtain follow-up chest x-ray PA and lateral to decide on his treatment. I will obtain 2 more sputum AFB smear and culture 1 was done today and one will be done at home in the morning and brought by his [id number] to the lab. Jul, Chronic obstructive pulmonar y disease, unspecified COPD type (ICD- 10 - J44.9) Patient only uses albuterol inhaler, I encouraged him to use Symbicort regularly 2 puffs twice a day to decrease his need for albuterol, now patient has cavitary lung, mass most likely has pulmonary malignancy . He refused admission to the hospital. 1 sputum AFB was sent on 03/12 that had AFB positive culture QuantiFERON TB Gold was negative. There was not enough growth to identified by DNA probe. The patient will have another sputum AFB done today. He needs bronchoscopy if the patient is not admitted to the hospital he needs referral to pulmonary Jul, Tobacco abuse (ICD-10 - Z72.0) Encouraged to cut back on his smoking but patient has no interest Jul, Hypertension, unspecified type (ICD-10 - I10) Jul, Iron deficiency anemia due to chronic bl ood loss (ICD-10 - D50.0) He needs EGD AND colonoscopy severe iron deficiency anemia, refused during hospitalization. I suspect he will need another blood transfusion he looks anemic. Jul, Alcoholic hepatitis without ascites (ICD-10 - K7 0.10) Normal LFTs recently has not had as much alcohol patient should not be on aspirin as he has iron deficiency anemia probably related to alcoholic gastritis and GI bleeding Jul, Acute alcoholic gastritis, p resence of bleeding unspecified (ICD-10 - K29.20) Patient refused colonoscopy and endoscopy left AGAINST MEDICAL ADVICE 03/04/2021 hemoglobin was 6.2 he still needs GI work-up. He states he had his colonoscopy done at [facility] somewhere in Jul, Cavitating mass of lung (ICD-10 - J98.4) QuantiFERON-TB gold was negative cavitation has resolved on recent CT done 05/2021. Jul, Infestation by bed bug (ICD-10 - B88.8) He is always infested with bedbugs when he comes to the office. He is living in an apartment with his partner Zachary PLAN OF TREATMENT Medication Medication Name Sig [...] Orally Once a day for 30 day(s) Treatment Notes Assessment Notes Clinical Notes Human immunodeficiency virus (HIV) disease He is 100% compliant with HIV medication. His last viral load was undetected CD4 count 417 06/2021, doing well taking his medication. Mycobacterium avium complex 06/04/2021-06/08/2021 2/3 negative AFb culture , 11/09 MAC03/2021 1 sputum AFB culture was positive for M. XenopiChest CT 05/2021 showed marked improvement in infiltrates with severe emphysema.He has a chronic cough with 2 different mycobacteria patient could be colonized but also could have nontuberculous mycobacteria disease , may benefit from treatment. I am concerned about 3 drug regimen use of rifampin in somebody who is an alcoholic and does not eat.I will obtain follow-up chest x-ray PA and lateral to decide on his treatment.I will obtain 2 more sputum AFB smear and culture 1 was done today and one will be done at home in the morning and brought by his [id number] to the lab. Chronic obstructive pulmonary disease, unspecified COPD type Patient only uses albuterol inhaler, I encouraged him to use Symbicort regularly 2 puffs twice a day to decrease his need for albuterol, now patient has cavitary lung, mass most likely has pulmonary malignancy . He refused admission to the hospital. 1 sputum AFB was sent on 03/12 that had AFB positive culture QuantiFERON TB Gold was negative. There was not enough growth to identified by DNA probe. The patient will have another sputum AFB done today. He needs bronchoscopy if the patient is not admitted to the hospital he needs referral to pulmonary Tobacco abuse Encouraged to cut ba ck on his smoking but patient has no interest Iron deficiency anemia due to chronic blood loss He needs EGD AND colonoscopy severe iron deficiency anemia, refused during hospitalization. I suspect he will need another blood transfusion he looks anemic. Alcoholic hepatitis without ascites Norm al LFTs recently has not had as much alcohol patient should not be on aspirin as he has iron deficiency anemia probably related to alcoholic gastritis and GI bleeding Acute alcoholic gastritis, presence of bleeding unspecified Patient refused colonoscopy and endoscopy left AGAINST MEDICAL ADVICE 03/04/2021 hemoglobin was 6.2 he still needs GI work-up. He states he had his colonoscopy done at [facility] somewhere in March Cavitating mass of lung QuantiFERON-TB g old was negative cavitation has resolved on recent CT done 05/2021. Infestation by bed bug He is always infe sted with bedbugs when he comes to the office. He is living in an apartment with his partner Zachary Treatment Notes Test Name Order Date PLZ CHEST 2 VIEW 2021-07-23 Next Appt Details 6 Weeks Reason: Provider Name:Snehal Marquez, 2021-09-0 4 10:30:00 AM, [address] [facility], , [place], [address], Insurance Providers Payer Name Payer Address Payer Phone Insured Name Patient Relati onship to Insured Coverage Start Date Coverage End Date [facility] [address] [facility] [phone] ENID WANG self
--- OUTSIDE RECORDS SUMMARY | 2021-10-03 15:14 | CCD ---
Author Author [facility] Organization [facility] Address Unknown Phone Unavailable Care Team Providers Care [employer] Name Role Phone [facility] Unavailable Unavailable Mj, Alaina SPRIGGER SPRIGGER Unavailable Unavailable Mj, A Alaina SPRIGGER Unavailable Unavailable Mj, A Alaina SPRIGGER Unavailable Unavailable Mj, A Alaina SPRIGGER Unavailable Unavailable Mj, A Alaina SPRIGGER Unavailable Unavailable Mj, A Alaina SPRIGGER Unavailable Unavailable Mj, A Alaina SPRIGGER Unavailable Unavailable Mj, A Alaina SPRIGGER Unavailable Unavailable Mj, A Alaina SPRIGGER Unavailable Unavailable Mj, A Alaina SPRIGGER Unavailable Unavailable Mj, A Alaina SPRIGGER Unavailable Unavailable Mj, A Alaina SPRIGGER Unavailable Unavailable Mj, A Alaina SPRIGGER Unavailable Unavailable Mj, A Alaina SPRIGGER Unavailable Unavailable Mj, A Alaina SPRIGGER Unavailable Unavailable Mj, A Alaina SPRIGGER Unavailable Unavailable Mj, A Alaina SPRIGGER Unavailable Unavailable Mj, A Alaina SPRIGGER Unavailable Unavailable Mj, A Alaina SPRIGGER Unavailable Unavailable Linn, A Alaina SPRIGGER Unavailable Unavailable Linn, A Alaina SPRIGGER Unavailable Unavailable Mj, A Alaina SPRIGGER Unavailable Unavailable Mj, A Alaina SPRIGGER Unavailable Unavailable Mj, A Alaina SPRIGGER Unavailable Unavailable Mj, A Alaina SPRIGGER Unavailable Unavailable Mj, A Alaina SPRIGGER Unavailable Unavailable Mj, A Alaina SPRIGGER Unavailable Unavailable Mj, A Alaina SPRIGGER Unavailable Unavailable Mj, A Alaina SPRIGGER Unavailable Unavailable Mj, A Alaina SPRIGGER Unavailable Unavailable Mj, A Alaina SPRIGGER Unavailable Unavailable Mj, A Alaina SPRIGGER Unavailable Unavailable Angle, J Channing PA-C Unavailable Unavailable Angle, J Channing PA-C Unavailable Unavailable Angle, J Channing PA-C Unavailable Unavailable Angle, J Channing PA-C Unavailable Unavailable Angle, J Channing PA-C Unavailable Unavailable Angle, J Channing PA-C Unavailable Unavailable Angle, J Channing PA-C Unavailable Unavailable Angle, J Channing PA-C Unavailable Unavailable Angle, J Channing PA-C Unavailable Unavailable Angle, J Channing PA-C Unavailable Unavailable Donald Shoemaker MD Unavailable Unavailable Donald Shoemaker MD Unavailable Unavailable Donald Shoemaker MD Unavailable Unavailable Donald Shoemaker MD Unavailable Unavailable Donald Shoemaker MD Unavailable Unavailable Donald Shoemaker MD Unavailable Unavailable Donald Shoemaker MD Unavailable Unavailable Donald Shoemaker MD Unavailable Unavailable Mj, A Alaina SPRIGGER Unavailable Unavailable Linn, A Alaina SPRIGGER Unavailable Unavailable Linn, A Alaina SPRIGGER Unavailable Unavailable Linn, A Alaina SPRIGGER Unavailable Unavailable Linn, A Alaina SPRIGGER Unavailable Unavailable Linn, A Alaina SPRIGGER Unavailable Unavailable Linn, A Alaina SPRIGGER Unavailable Unavailable Linn, A Alaina SPRIGGER Unavailable Unavailable Linn, A Alaina SPRIGGER Unavailable Unavailable Linn, A Alaina SPRIGGER Unavailable Unavailable Linn, A Alaina SPRIGGER Unavailable Unavailable Linn, A Alaina SPRIGGER Unavailable Unavailable Linn, A Alaina SPRIGGER Unavailable Unavailable Linn, A Alaina SPRIGGER Unavailable Unavailable Linn, A Alaina SPRIGGER Unavailable Unavailable Linn, A Alaina SPRIGGER Unavailable Unavailable Linn, A Alaina SPRIGGER Unavailable Unavailable Linn, A Alaina SPRIGGER Unavailable Unavailable Linn, A Alaina SPRIGGER Unavailable Unavailable Mj, A Alaina SPRIGGER Unavailable Unavailable Mj, A Alaina SPRIGGER Unavailable Unavailable Mj, A Alaina SPRIGGER Unavailable Unavailable Mj, A Alaina SPRIGGER Unavailable Unavailable Mj, A Alaina SPRIGGER Unavailable Unavailable Mj, A Alaina SPRIGGER Unavailable Unavailable Mj, A Alaina SPRIGGER Unavailable Unavailable Mj, A Alaina SPRIGGER Unavailable Unavailable Mj, A Alaina SPRIGGER Unavailable Unavailable Mj, A Alaina SPRIGGER Unavailable Unavailable Mj, A Alaina SPRIGGER Unavailable Unavailable Mj, A Alaina SPRIGGER Unavailable Unavailable ABEL, Anny ROCIO MD Unavailable Unavailable ABEL, Anny ROCIO MD Unavailable Unavailable ABEL, L ROCIO MD Unavailable Unavailable ABEL, L ROCIO MD Unavailable Unavailable ABEL, L ROCIO MD Unavailable Unavailable ABEL, L ROCIO MD Unavailable Unavailable ABEL, L ROCIO MD Unavailable Unavailable ABEL, L ROCIO MD Unavailable Unavailable ABEL, L ROCIO MD Unavailable Unavailable ABEL, L ROCIO MD Unavailable Unavailable ABEL, L ROCIO MD Unavailable Unavailable ABEL, L ROCIO MD Unavailable Unavailable ABEL, Anny ROCIO MD Unavailable Unavailable ABEL, L ROCIO MD Unavailable Unavailable ABEL, L ROCIO MD Unavailable Unavailable ABEL, L ROCIO MD Unavailable Unavailable ABEL, L ROICO MD Unavailable Unavailable ABEL, L ROCIO MD Unavailable Unavailable ABEL, L ROCIO MD Unavailable Unavailable ABEL, L ROCIO MD Unavailable Unavailable Angle, J Channing PA-C Unavailable Unavailable Angle, J Channing PA-C Unavailable Unavailable Angle, J Channing PA-C Unavailable Unavailable Angle, J Channing PA-C Unavailable Unavailable Angle, J Channing PA-C Unavailable Unavailable Angle, J Channing PA-C Unavailable Unavailable Angle, J Channing PA-C Unavailable Unavailable Angle, J Channing PA-C Unavailable Unavailable Angle, J Channing PA-C Unavailable Unavailable Angle, J Channing PA-C Unavailable Unavailable Stephie CANNON MD Unavailable Unavailable Stephie CANNON MD Unavailable Unavailable Stephie CANNON MD Unavailable Unavailable Stephie CANNON MD Unavailable Unavailable Stephie CANNON MD Unavailable Unavailable Stephie CANNON MD Unavailable Unavailable Stephie CANNON MD Unavailable Unavailable Stephie CANNON MD Unavailable Unavailable Stephie CANNON MD Unavailable Unavailable Stephie CANNON MD Unavailable Unavailable Stephie CANNON MD Unavailable Unavailable NON, PHYSICIAN STAFF Unavailable Unavailable Re-disclosure Warning The records that you are about to access may contain information from federally-assisted alcohol or drug abuse programs. If such information is present, then the following federally mandated warning applies: This information has been disclosed to you from records protected by federal confidentiality rules (42 CFR part 2). The federal rules prohibit you from making any further disclosure of this information unless further disclosure is expressly permitted by the written consent of the person to whom it pertains or as otherwise permitted by 42 CFR part 2. A general authorization for the release of medical or other information is NOT sufficient for this purpose. The Federal rules restrict any use of the information to criminally investigate or prosecute any alcohol or drug abuse patient.The records that you are about to access may contain highly sensitive health information, the redisclosure of which is protected by Article 27-F of the [facility] Public Health law. If you continue you may have access to information: Regarding HIV / AIDS; Provided by facilities licensed or operated by the [facility] Office of Mental Health; or Provided by the [facility] Office for People With Developmental Disabilities. If such information is present, then the following [facility] mandated warning applies: This information has been disclosed to you from confidential records which are protected by state law. State law prohibits you from making any further disclosure of this information without the specific written consent of the person to whom it pertains, or as otherwise permitted by law. Any unauthorized further disclosure in violation of state law may result in a fine or senior living sentence or both. A general authorization for the release of medical or other information is NOT sufficient authorization for further disc losure. Allergies and Adverse Reactions Type Description Substance Reaction Status Data Source(s ) Propensity to adverse reactions BEE STING BEE STING [facility] Propensity to adverse reactions BACTRIM BACTRIM [facility] Drug allergy ABACAVIR ABACAVIR [facility] Propensity to adverse reactions SULFA (sulfonamide) SULFA (sulfonam elodia) [facility] Propensity to adverse reactions PCN (penicillin) PCN (penicillin) [facility] Hospital Encounters Encounter Providers Location Date Indications Data Source(s ) Outpatient [facility] [address] 09/10/2021 12:00:00 AM EDT eCW1 ([facility] [place] [address] [facility] [address] 09/10/2021 12:00:00 AM EDT [facility] [place] [address] [facility] [address] 08/07/2021 12:00:00 AM EDT [facility]CW1 ([facility]) [place] [address] [facility] [address] 08/07/2021 12:00:00 AM EDT eCW1 ([facility]) [place] [address] [facility] [address] 07/26/2021 12:00:00 AM EDT eCW1 ([facility]) Outpatient [address] [facility] [place] [address] 07/23/2021 12:00:00 AM EDT eCW1 ([facility]) Unknown [address] [facility] Y [address] 07/03/2021 12:00:00 AM EDT eCW1 ([facility]) SUMMER Lai-BC: [address] [place] [phone], Ph. Attender: Alaina WHEELER [place] - [facility] Medical 06/18/2021 12:00:00 AM EDT EVA ([facility]) Unknown [address] [facility] [place] [address] 06/08/2021 12:00:00 AM EDT eCW1 ([facility]) Outpatient [address] [place] [address] [place] [address] 06/04/2021 12:00:00 AM EDT eCW1 ([facility]) Unknown [address] [facility] [place] [address] 05/22/2021 12:00:00 AM EDT eCW1 ([facility]) [place] [address] [facility] [address] 05/13/2021 12:00:00 AM EDT eCW1 ([facility]) [place] [address] [facility] [address] 04/27/2021 12:00:00 AM EDT eCW1 ([facility]) Unknown [address] [facility] [address] 04/20/2021 12:00:00 AM EDT eCW1 ([facility]) Out[place] [address] [facility] [address] 03/12/2021 12:00:00 AM EDT eCW1 ([facility]) Alaina Barker [facility]: [address] [place] [address], Ph. Attender: Alaina Barker [facility] Medical 02/11/2021 12:00:00 AM EDT EVA ([facility]) Alaina Barker [facility]: [address] [place] [address], Ph. Attender: Alaina Barker [facility] Medical 02/11/2021 12:00:00 AM EDT EVA ([facility]) Inpatient Attender: DANA Alves MDAttender: Horacio Sheomaker MDConsultant: STAFF NON 01/30/2021 10:11:00 PM EDT - 01/31/2021 10:35:00 AM EDT [facility] Patient discharged. Outpatient Referrer: Channing Barbour PA-C [id number] 01/30/2021 0 8:46:00 PM [facility] Attender: [facility] 01/30/2021 08:1 3:00 PM EDT [facility] Emergency Attender: DANA CANNON MD 01/30/2021 01:50:00 PM EDT - 01/30/2021 10:11:00 PM EDT [facility] Emergency Attender: ROCIO BYNUM MDConsultant: STAFF NON 01/04/2021 01:36:00 PM EST - 01/04/2021 06:36:00 PM EST [facility] Patient discharged. GELA Lai: [address], [place] [address], Ph. Attender: Alaina Barker [facility] Medical 01/01/2021 12:00:00 AM EST EVA ([facility]) POONAM Lai: [address], [place] [address], Ph. Attender: Alaina Barker [facility] Medical 01/01/2021 12:00:00 AM EST EVA ([facility]) GELA Lai: [address], [place] [address], Ph. Attender: Alaina Barker [facility] Medical 01/01/2021 12:00:00 AM EST EVA ([facility]) GELA Lai: [address], [place] [address], Ph. Attender: Alaina Barker [facility] Medical 01/01/2021 12:00:00 AM EST EVA ([facility]) Outpatient [id number] 11/11/2020 07:23:00 PM EST anemia, bloody stools [facility] anemia, bloody stools Emergency Attender: Channing ENCISOCConsultant: STAFF NO N 11/11/2020 01:26:00 PM EST - 11/12/2020 12:57:00 AM EST [facility] Patient discharged. POONAM Lai: [address], [place] [address], Ph. Attender: Alaina Barker [facility] Medical 11/06/2020 12:00:00 AM EST EVA ([facility]) Alaina Barker [facility]: [address], [place] [address], Ph. Attender: Alaina Barker [facility] Medical 11/06/2020 12:00:00 AM EST EVA ([facility]) Alaina Barker [facility]: [address], [place] [address], Ph. Att[facility]: [facility] 11/06/2020 12:00:00 AM EST EVA ([facility]) Alaina Barker [facility]: [address], [place] [address], Ph. Attender: Alaina Barker [facility] Medical 11/06/2020 12:00:00 AM EST EV[facility] ([facility]) Outpatient [address] [facility] [address] 09/09/2020 12:00:00 AM EST [facility] Unknown [address] [facility] [address] 09/08/2020 12:00:00 AM EST eCW1 ([facility]) Outpatient Attender: Alaina WHEELER 08/19/2020 06:5 1:00 PM EDT [facility] Outpatient Attender: SUMMER WHEELER 08/13/2020 02:32:02 P M EDT [facility] 08/13/2020 01:20:00 P M EDT [facility] Outpatient Att[facility]: [facility] 08/13/2020 11:2 5:00 AM EDT [facility] Outpatient Attender: Alaina Barker SPRIGGER FP 08/09/2020 07:4 2:03 PM EDT [facility] Outpatient Attender: SUMMER Barker SPRIGGER FP 08/09/2020 07:42:02 P M EDT [facility] Outpatient Attender: SUMMER Barker SPRIGGER FP 08/09/2020 07:41:01 P M EDT [facility] Outpatient Attender: Alaina Barker SPRIGGER FP 08/09/2020 07:4 1:01 PM EDT [facility] Outpatient Attender: Alaina Barker SPRIGGER 08/09/2020 11:1 1:02 AM EDT [facility] Immunizations Vaccine Date Status Description Data Source(s) influenza, recombinant, quadrIvalent,injectable, prese rvative free 09/10/2021 12:38:00 PM EDT completed eCW1 ([facility]) influenza, recombinant, quadrIvalent,injectable, prese rvative free 09/10/2021 12:38:00 PM EDT completed eCW1 ([facility]) New in 2011. IIV4 08/13/2020 12:00:00 AM EDT completed 0.5 mL EVA ([facility]) New in 2011. IIV4 08/13/2020 12:00:00 AM EDT completed 0.5 mL EVA ([facility]) New in 2011. IIV4 08/13/2020 12:00:00 AM EDT completed 0.5 mL EVA ([facility]) New in 2011. IIV4 08/13/2020 12:00:00 AM EDT completed 0.5 mL VEA ([facility]) Medications Medication Brand Name Start Date Product Form Dose Route Admi nistrative Instructions Pharmacy Instructions Status Indications Reaction Description Data Source(s) MULTIVITAMIN 09/26/2021 12:00:00 AM EST tablet 30 TAKE ONE TABLET BY MOUTH EVERY DAY TAKE ONE TABLET BY MOUTH EVERY DAY SOLD: 09/27/2021 [facility] 324 mg (38 mg iron) 09/14/2021 12:00:00 AM EST tablet 30 TAKE ONE TABLET BY MOUTH EVERY DAY WITH WATER OR JUICE BETWEEN MEALS TAKE ONE TABLET BY MOUTH EVERY DAY WITH WATER OR JUICE BETWEEN MEALS SOLD: 09/14/2021 [facility] Acetaminophen 500 MG Oral Tablet Acetaminophen 500 MG 2020 12:00:00 AM EDT 1.0 {capsule_as_needed} active Acetaminophen 500 MG eCW1 ([facility]) Acetaminophen 500 MG Oral Tablet Acetaminophen 500 MG 2020 12:00:00 AM EDT 1.0 {capsule_as_needed} active eCW1 ([facility]) Spironolactone 25 MG Oral Tablet [Aldactone] Aldactone 25 MG Aldactone 25 MG 09/10/2021 12:00:00 AM EDT 1.0 {tablet} active Aldactone 25 MG eCW1 ([facility]) 90 mcg/actuation 09/10/2021 12:00:00 AM EDT HFA aerosol inha ler 18 INHALE TWO PUFFS BY MOUTH EVERY 4 HOURS NEEDED INHALE TWO PUFFS BY MOUTH EVERY 4 HOURS NEEDED SOLD: 09/10/2021 [facility] Spironolactone 25 MG Oral Tablet [Aldactone] Aldactone 25 MG Aldactone 25 MG 09/10/2021 12:00:00 AM EDT 1.0 {tablet} active eCW1 ([facility]) pantoprazole 40 MG Delayed Release Oral Tablet PANTOPRAZOLE SODIUM 09/10/2021 12:00:00 AM EDT tablet,delayed release (DR/EC) 30 T KAR ONE TABLET BY MOUTH EVERY DAY TAKE ONE TABLET BY MOUTH EVERY DAY SOLD: 09/10/2021 [facility] 25 mg 09/10/2021 12:00:00 AM EDT tablet 30 TAKE ONE TABLET BY MOUTH EVERY DAY TAKE ONE TABLET BY MOUTH EVERY DAY SOLD: 09/10/2021 [facility] 400 mcg 08/30/2021 12:00:00 AM EDT tablet 30 TAKE ONE TABLET BY MOUTH EVERY DAY TAKE ONE TABLET BY MOUTH EVERY DAY SOLD: 08/30/2021 [facility] 90 mcg/actuation 08/12/2021 12:00:00 AM EDT HFA aerosol inha ler 18 USE 2 PUFFS BY MOUTH EVERY 4 HOURS NEEDED USE 2 PUFFS BY MOUTH EVERY 4 HOURS NEEDED SOLD: 08/12/2021 [facility] 30 ACTUAT fluticasone furoate 0.2 MG/ACT UAT / vilanterol 0.025 MG/ACTUAT Dry Powder Inhaler [Breo] Breo Ellipta 200-25 MCG/INH Breo Ellipta 200-25 MCG/INH 08/10/2021 12:00:00 AM EDT 1.0 {puff} active Breo Ellipta 200-25 MCG/INH eCW1 ([facility]) 30 ACTUAT fluticasone furoate 0.2 MG/ACT UAT / vilanterol 0.025 MG/ACTUAT Dry Powder Inhaler [Breo] Breo Ellipta 200-25 MCG/INH Breo Ellipta 200-25 MCG/INH 08/10/2021 12:00:00 AM EDT 1.0 {puff} active Breo Ellipta 200-25 MCG/INH eCW1 ([facility]) 30 ACTUAT fluticasone furoate 0.2 MG/ACT UAT / vilanterol 0.025 MG/ACTUAT Dry Powder Inhaler [Breo] Breo Ellipta 200-25 MCG/INH Breo Ellipta 200-25 MCG/INH 08/10/2021 12:00:00 AM EDT 1.0 {puff} active eCW1 ([facility]) 30 ACTUAT fluticasone furoate 0.2 MG/ACT UAT / vilanterol 0.025 MG/ACTUAT Dry Powder Inhaler [Breo] Breo Ellipta 200-25 MCG/INH Breo Ellipta 200-25 MCG/INH 08/10/2021 12:00:00 AM EDT 1.0 {puff} active Breo Ellipta 200-25 MCG/INH eCW1 ([facility]) cefdinir 300 MG Oral Capsule Cefdinir 300 MG Cefdinir 300 MG 07/26/2021 12:00:00 AM EDT active Cefdinir 300 MG eCW1 ([facility]) cefdinir 300 MG Oral Capsule Cefdinir 300 MG Cefdinir 300 MG 07/26/2021 12:00:00 AM EDT active Cefdinir 300 MG eCW1 ([facility]) cefdinir 300 MG Oral Capsule Cefdinir 300 MG Cefdinir 300 MG 07/26/2021 12:00:00 AM EDT active Cefdinir 300 MG eCW1 ([facility]) 300 mg 07/26/2021 12:00:00 AM EDT capsule 14 TAKE ONE CAPSULE BY MOUTH TWICE A DAY FOR 7 DAYS TAKE ONE CAPSULE BY MOUTH TWICE A DAY FOR 7 DAYS SOLD: 07/26/2021 [facility] cefdinir 300 MG Oral Capsule Cefdinir 300 MG Cefdinir 300 MG 07/26/2021 12:00:00 AM EDT active Cefdinir 300 MG eCW1 ([facility]) pantoprazole 40 MG Delayed Release Oral Tablet PANTOPRAZOLE SODIUM 07/15/2021 12:00:00 AM EDT tablet,delayed release (DR/EC) 30 T KAR ONE TABLET BY MOUTH EVERY DAY TAKE ONE TABLET BY MOUTH EVERY DAY SOLD: 07/15/2021 [facility] 400 mcg 06/05/2021 12:00:00 AM EDT tablet 30 TAKE ONE TABLET BY MOUTH EVERY DAY TAKE ONE TABLET BY MOUTH EVERY DAY SOLD: 07/17/2021 [facility] 400 mcg 06/05/2021 12:00:00 AM EDT tablet 30 TAKE ONE TABLET BY MOUTH EVERY DAY TAKE ONE TABLET BY MOUTH EVERY DAY SOLD: 06/05/2021 [facility] 90 mcg/actuation 05/05/2021 12:00:00 AM EDT HFA aerosol inha ler 18 INHALE TWO PUFFS BY MOUTH EVERY 4 HOURS NEEDED INHALE TWO PUFFS BY MOUTH EVERY 4 HOURS NEEDED SOLD: 07/29/2021 [facility] 90 mcg/actuation 05/05/2021 12:00:00 AM EDT HFA aerosol inha ler 18 INHALE TWO PUFFS BY MOUTH EVERY 4 HOURS NEEDED INHALE TWO PUFFS BY MOUTH EVERY 4 HOURS NEEDED SOLD: 06/16/2021 [facility] 90 mcg/actuation 05/05/2021 12:00:00 AM EDT HFA aerosol inha ler 18 INHALE TWO PUFFS BY MOUTH EVERY 4 HOURS NEEDED INHALE TWO PUFFS BY MOUTH EVERY 4 HOURS NEEDED SOLD: 05/05/2021 [facility] 90 mcg/actuation 05/05/2021 12:00:00 AM EDT HFA aerosol inha ler 18 INHALE TWO PUFFS BY MOUTH EVERY 4 HOURS NEEDED INHALE TWO PUFFS BY MOUTH EVERY 4 HOURS NEEDED SOLD: 07/14/2021 [facility] 90 mcg/actuation 05/05/2021 12:00:00 AM EDT HFA aerosol inha ler 18 INHALE TWO PUFFS BY MOUTH EVERY 4 HOURS NEEDED INHALE TWO PUFFS BY MOUTH EVERY 4 HOURS NEEDED SOLD: 06/02/2021 [facility] 90 mcg/actuation 05/05/2021 12:00:00 AM EDT HFA aerosol inha ler 18 INHALE TWO PUFFS BY MOUTH EVERY 4 HOURS NEEDED INHALE TWO PUFFS BY MOUTH EVERY 4 HOURS NEEDED SOLD: 07/01/2021 [facility] Daily-Shivam Multivitamin - Daily-Shivam Multivitamin - 04/30/2021 1 2:00:00 AM EDT 1.0 {tablet} active Daily-Shivam Multivitamin - eCW1 ([facility]) Daily-Shivam Multivitamin - Daily-Shivam Multivitamin - 04/30/2021 1 2:00:00 AM EDT 1.0 {tablet} active Daily-Shivam Multivitamin - eCW1 ([facility]) Daily-Shivam Multivitamin - Daily-Shivam Multivitamin - 04/30/2021 1 2:00:00 AM EDT 1.0 {tablet} active Daily-Shivam Multivitamin - eCW1 ([facility]) Daily-Shivam Multivitamin - Daily-Shivam Multivitamin - 04/30/2021 1 2:00:00 AM EDT 1.0 {tablet} active Daily-Shivam Multivitamin - eCW1 ([facility]) Daily-Shivam Multivitamin - Daily-Shivam Multivitamin - 04/30/2021 1 2:00:00 AM EDT 1.0 {tablet} active Daily-Shivam Multivitamin - eCW1 ([facility]) Daily-Shivam Multivitamin - Daily-Shivam Multivitamin - 04/30/2021 1 2:00:00 AM EDT 1.0 {tablet} active Daily-Shivam Multivitamin - eCW1 ([facility]) Daily-Shivam Multivitamin - Daily-Shivam Multivitamin - 04/30/2021 1 2:00:00 AM EDT 1.0 {tablet} active Daily-Shivam Multivitamin - eCW1 ([facility]) Daily-Shivam Multivitamin - Daily-Shivam Multivitamin - 04/30/2021 1 2:00:00 AM EDT 1.0 {tablet} active Daily-Shivam Multivitamin - eCW1 ([facility]) Daily-Shivam Multivitamin - Daily-Shivam Multivitamin - 04/30/2021 1 2:00:00 AM EDT 1.0 {tablet} active Daily-Shivam Multivitamin - eCW1 ([facility]) Daily-Shivam Multivitamin - Daily-Shivam Multivitamin - 04/30/2021 1 2:00:00 AM EDT 1.0 {tablet} active eCW 1 ([facility]) 25 mg 04/25/2021 12:00:00 AM EDT tablet extended release 24 hr 30 TAKE ONE TABLET BY MOUTH EVERY DAY DIRECTED TAKE ONE TABLET BY MOUTH EVERY DAY DIRECTED SOLD: 06/21/2021 [facility] 25 mg 04/25/2021 12:00:00 AM EDT tablet extended release 24 hr 30 TAKE ONE TABLET BY MOUTH EVERY DAY DIRECTED TAKE ONE TABLET BY MOUTH EVERY DAY DIRECTED SOLD: 09/12/2021 [facility] 25 mg 04/25/2021 12:00:00 AM EDT tablet extended release 24 hr 30 TAKE ONE TABLET BY MOUTH EVERY DAY DIRECTED TAKE ONE TABLET BY MOUTH EVERY DAY DIRECTED SOLD: 05/23/2021 [facility] 25 mg 04/25/2021 12:00:00 AM EDT tablet extended release 24 hr 30 TAKE ONE TABLET BY MOUTH EVERY DAY DIRECTED TAKE ONE TABLET BY MOUTH EVERY DAY DIRECTED SOLD: 08/15/2021 [facility] 25 mg 04/25/2021 12:00:00 AM EDT tablet extended release 24 hr 30 TAKE ONE TABLET BY MOUTH EVERY DAY DIRECTED TAKE ONE TABLET BY MOUTH EVERY DAY DIRECTED SOLD: 04/26/2021 [facility] 25 mg 04/25/2021 12:00:00 AM EDT tablet extended release 24 hr 30 TAKE ONE TABLET BY MOUTH EVERY DAY DIRECTED TAKE ONE TABLET BY MOUTH EVERY DAY DIRECTED SOLD: 07/19/2021 [facility] 90 mcg/actuation 04/08/2021 12:00:00 AM EDT HFA aerosol inha ler 18 INHALE TWO PUFFS BY MOUTH EVERY 4 HOURS NEEDED INHALE TWO PUFFS BY MOUTH EVERY 4 HOURS NEEDED SOLD: 05/19/2021 [facility] 90 mcg/actuation 04/08/2021 12:00:00 AM EDT HFA aerosol inha ler 18 INHALE TWO PUFFS BY MOUTH EVERY 4 HOURS NEEDED INHALE TWO PUFFS BY MOUTH EVERY 4 HOURS NEEDED SOLD: 04/21/2021 [facility] 90 mcg/actuation 04/08/2021 12:00:00 AM EDT HFA aerosol inha ler 18 INHALE TWO PUFFS BY MOUTH EVERY 4 HOURS NEEDED INHALE TWO PUFFS BY MOUTH EVERY 4 HOURS NEEDED SOLD: 04/08/2021 [facility] 324 mg (38 mg iron) 04/05/2021 12:00:00 AM EDT tablet 30 TAKE ONE TABLET BY MOUTH EVERY DAY WITH WATER OR JUICE BETWEEN MEALS TAKE ONE TABLET BY MOUTH EVERY DAY WITH WATER OR JUICE BETWEEN MEALS SOLD: 08/20/2021 [facility] 324 mg (38 mg iron) 04/05/2021 12:00:00 AM EDT tablet 30 TAKE ONE TABLET BY MOUTH EVERY DAY WITH WATER OR JUICE BETWEEN MEALS TAKE ONE TABLET BY MOUTH EVERY DAY WITH WATER OR JUICE BETWEEN MEALS SOLD: 05/29/2021 [facility] 324 mg (38 mg iron) 04/05/2021 12:00:00 AM EDT tablet 30 TAKE ONE TABLET BY MOUTH EVERY DAY WITH WATER OR JUICE BETWEEN MEALS TAKE ONE TABLET BY MOUTH EVERY DAY WITH WATER OR JUICE BETWEEN MEALS SOLD: 05/01/2021 [facility] 324 mg (38 mg iron) 04/05/2021 12:00:00 AM EDT tablet 30 TAKE ONE TABLET BY MOUTH EVERY DAY WITH WATER OR JUICE BETWEEN MEALS TAKE ONE TABLET BY MOUTH EVERY DAY WITH WATER OR JUICE BETWEEN MEALS SOLD: 07/24/2021 [facility] 324 mg (38 mg iron) 04/05/2021 12:00:00 AM EDT tablet 30 TAKE ONE TABLET BY MOUTH EVERY DAY WITH WATER OR JUICE BETWEEN MEALS TAKE ONE TABLET BY MOUTH EVERY DAY WITH WATER OR JUICE BETWEEN MEALS SOLD: 06/26/2021 [facility] 324 mg (38 mg iron) 04/05/2021 12:00:00 AM EDT tablet 30 TAKE ONE TABLET BY MOUTH EVERY DAY WITH WATER OR JUICE BETWEEN MEALS TAKE ONE TABLET BY MOUTH EVERY DAY WITH WATER OR JUICE BETWEEN MEALS SOLD: 04/06/2021 [facility] bictegravir 50 MG / emtricitabine 200 MG / tenofovir alafenamide 25 MG Oral Tablet [Biktarvy] 50-200-25 mg BICTEGRAV/EMTRICIT/TENOFOV ALA 04/03/2021 12:00:00 AM EDT tablet 30 TAKE ONE TABLET BY MOUTH EVERY DAY TAKE ONE TABLET BY MOUTH EVERY DAY SOLD: 07/20/2021 [facility] bictegravir 50 MG / emtricitabine 200 MG / tenofovir alafenamide 25 MG Oral Tablet [Biktarvy] 50-200-25 mg BICTEGRAV/EMTRICIT/TENOFOV ALA 04/03/2021 12:00:00 AM EDT tablet 30 TAKE ONE TABLET BY MOUTH EVERY DAY TAKE ONE TABLET BY MOUTH EVERY DAY SOLD: 04/03/2021 [facility] bictegravir 50 MG / emtricitabine 200 MG / tenofovir alafenamide 25 MG Oral Tablet [Biktarvy] 50-200-25 mg BICTEGRAV/EMTRICIT/TENOFOV ALA 04/03/2021 12:00:00 AM EDT tablet 30 TAKE ONE TABLET BY MOUTH EVERY DAY TAKE ONE TABLET BY MOUTH EVERY DAY SOLD: 06/23/2021 [facility] bictegravir 50 MG / emtricitabine 200 MG / tenofovir alafenamide 25 MG Oral Tablet [Biktarvy] 50-200-25 mg BICTEGRAV/EMTRICIT/TENOFOV ALA 04/03/2021 12:00:00 AM EDT tablet 30 TAKE ONE TABLET BY MOUTH EVERY DAY TAKE ONE TABLET BY MOUTH EVERY DAY SOLD: 09/14/2021 [facility] bictegravir 50 MG / emtricitabine 200 MG / tenofovir alafenamide 25 MG Oral Tablet [Biktarvy] 50-200-25 mg BICTEGRAV/EMTRICIT/TENOFOV ALA 04/03/2021 12:00:00 AM EDT tablet 30 TAKE ONE TABLET BY MOUTH EVERY DAY TAKE ONE TABLET BY MOUTH EVERY DAY SOLD: 05/26/2021 [facility] bictegravir 50 MG / emtricitabine 200 MG / tenofovir alafenamide 25 MG Oral Tablet [Biktarvy] 50-200-25 mg BICTEGRAV/EMTRICIT/TENOFOV ALA 04/03/2021 12:00:00 AM EDT tablet 30 TAKE ONE TABLET BY MOUTH EVERY DAY TAKE ONE TABLET BY MOUTH EVERY DAY SOLD: 08/17/2021 [facility] MULTIVITAMIN 03/13/2021 12:00:00 AM EDT tablet 30 TAKE ONE TABLET BY MOUTH EVERY DAY TAKE ONE TABLET BY MOUTH EVERY DAY SOLD: 03/13/2021 [facility] 324 mg (38 mg iron) 03/11/2021 12:00:00 AM EDT tablet 30 TAKE ONE TABLET BY MOUTH EVERY DAY WITH WATER OR JUICE BETWEEN MEALS TAKE ONE TABLET BY MOUTH EVERY DAY WITH WATER OR JUICE BETWEEN MEALS SOLD: 03/11/2021 [facility] 2.5 % 03/09/2021 12:00:00 AM EDT cream 28 APPLY TO AFFECTED AREA(S) TWO TIMES A DAY NEEDED APPLY TO AFFECTED AREA(S) TWO TIMES A DAY NEEDED SO LD: 03/09/2021 [facility] 2.5 % 02/11/2021 12:00:00 AM EDT cream 28 APPLY TO AFFECTED AREA(S) TWO TIMES A DAY NEEDED APPLY TO AFFECTED AREA(S) TWO TIMES A DAY NEEDED SO LD: 02/24/2021 [facility] 2.5 % 02/11/2021 12:00:00 AM EDT cream 28 APPLY TO AFFECTED AREA(S) TWO TIMES A DAY NEEDED APPLY TO AFFECTED AREA(S) TWO TIMES A DAY NEEDED SO LD: 02/11/2021 [facility] 90 mcg/actuation 02/03/2021 12:00:00 AM EDT HFA aerosol inha ler 18 USE 2 PUFFS BY MOUTH EVERY 4 HOURS NEEDED USE 2 PUFFS BY MOUTH EVERY 4 HOURS NEEDED SOLD: 03/08/2021 [facility] 90 mcg/actuation 02/03/2021 12:00:00 AM EDT HFA aerosol inha ler 18 USE 2 PUFFS BY MOUTH EVERY 4 HOURS NEEDED USE 2 PUFFS BY MOUTH EVERY 4 HOURS NEEDED SOLD: 02/04/2021 [facility] 90 mcg/actuation 02/03/2021 12:00:00 AM EDT HFA aerosol inha ler 18 USE 2 PUFFS BY MOUTH EVERY 4 HOURS NEEDED USE 2 PUFFS BY MOUTH EVERY 4 HOURS NEEDED SOLD: 03/23/2021 [facility] 90 mcg/actuation 02/03/2021 12:00:00 AM EDT HFA aerosol inha ler 18 USE 2 PUFFS BY MOUTH EVERY 4 HOURS NEEDED USE 2 PUFFS BY MOUTH EVERY 4 HOURS NEEDED SOLD: 02/20/2021 [facility] 1 mg 01/31/2021 12:00:00 AM EDT tablet 14 TAKE ONE TABLET BY MOUTH EVERY DAY TAKE ONE TABLET BY MOUTH EVERY DAY SOLD: 02/01/2021 [facility] MULTIVITAMIN 01/31/2021 12:00:00 AM EDT tablet 14 TAKE ONE TABLET BY MOUTH EVERY DAY TAKE ONE TABLET BY MOUTH EVERY DAY SOLD: 02/01/2021 [facility] 100 mg 01/31/2021 12:00:00 AM EDT tablet 14 TAKE ONE TABLET BY MOUTH EVERY DAY TAKE ONE TABLET BY MOUTH EVERY DAY SOLD: 02/01/2021 [facility] 325 mg (65 mg iron) 01/05/2021 12:00:00 AM EST tablet 30 TAKE ONE TABLET BY MOUTH EVERY DAY TAKE ONE TABLET BY MOUTH EVERY DAY SOLD: 01/05/2021 [facility] 25 mg 01/01/2021 12:00:00 AM EST tablet extended release 24 hr 30 TAKE ONE TABLET BY MOUTH EVERY DAY DIRECTED TAKE ONE TABLET BY MOUTH EVERY DAY DIRECTED SOLD: 01/27/2021 [facility] 25 mg 01/01/2021 12:00:00 AM EST tablet extended release 24 hr 30 TAKE ONE TABLET BY MOUTH EVERY DAY DIRECTED TAKE ONE TABLET BY MOUTH EVERY DAY DIRECTED SOLD: 01/01/2021 [facility] 25 mg 01/01/2021 12:00:00 AM EST tablet extended release 24 hr 30 TAKE ONE TABLET BY MOUTH EVERY DAY DIRECTED TAKE ONE TABLET BY MOUTH EVERY DAY DIRECTED SOLD: 03/23/2021 [facility] 25 mg 01/01/2021 12:00:00 AM EST tablet extended release 24 hr 30 TAKE ONE TABLET BY MOUTH EVERY DAY DIRECTED TAKE ONE TABLET BY MOUTH EVERY DAY DIRECTED SOLD: 02/23/2021 [facility] 90 mcg/actuation 11/25/2020 12:00:00 AM EST HFA aerosol inha ler 18 INHALE TWO PUFFS BY MOUTH EVERY 4 HOURS NEEDED INHALE TWO PUFFS BY MOUTH EVERY 4 HOURS NEEDED SOLD: 11/25/2020 [facility] 90 mcg/actuation 11/25/2020 12:00:00 AM EST HFA aerosol inha ler 18 INHALE TWO PUFFS BY MOUTH EVERY 4 HOURS NEEDED INHALE TWO PUFFS BY MOUTH EVERY 4 HOURS NEEDED SOLD: 01/06/2021 [facility] 90 mcg/actuation 11/25/2020 12:00:00 AM EST HFA aerosol inha ler 18 INHALE TWO PUFFS BY MOUTH EVERY 4 HOURS NEEDED INHALE TWO PUFFS BY MOUTH EVERY 4 HOURS NEEDED SOLD: 01/20/2021 [facility] 90 mcg/actuation 11/25/2020 12:00:00 AM EST HFA aerosol inha ler 18 INHALE TWO PUFFS BY MOUTH EVERY 4 HOURS NEEDED INHALE TWO PUFFS BY MOUTH EVERY 4 HOURS NEEDED SOLD: 12/09/2020 [facility] 90 mcg/actuation 11/25/2020 12:00:00 AM EST HFA aerosol inha ler 18 INHALE TWO PUFFS BY MOUTH EVERY 4 HOURS NEEDED INHALE TWO PUFFS BY MOUTH EVERY 4 HOURS NEEDED SOLD: 12/23/2020 [facility] 100 mg 11/16/2020 12:00:00 AM EST tablet 30 TAKE ONE TABLET BY MOUTH EVERY DAY TAKE ONE TABLET BY MOUTH EVERY DAY SOLD: 11/16/2020 [facility] 1 mg 11/16/2020 12:00:00 AM EST tablet 30 TAKE ONE TABLET BY MOUTH EVERY DAY TAKE ONE TABLET BY MOUTH EVERY DAY SOLD: 11/16/2020 [facility] pantoprazole 40 MG Delayed Release Oral Tablet PANTOPRAZOLE SODIUM 10/27/2020 12:00:00 AM EST tablet,delayed release (DR/EC) 30 T KAR ONE TABLET BY MOUTH EVERY DAY TAKE ONE TABLET BY MOUTH EVERY DAY SOLD: 10/27/2020 [facility] pantoprazole 40 MG Delayed Release Oral Tablet PANTOPRAZOLE SODIUM 10/27/2020 12:00:00 AM EST tablet,delayed release (DR/EC) 30 T KAR ONE TABLET BY MOUTH EVERY DAY TAKE ONE TABLET BY MOUTH EVERY DAY SOLD: 12/18/2020 [facility] pantoprazole 40 MG Delayed Release Oral Tablet PANTOPRAZOLE SODIUM 10/27/2020 12:00:00 AM EST tablet,delayed release (DR/EC) 30 T KAR ONE TABLET BY MOUTH EVERY DAY TAKE ONE TABLET BY MOUTH EVERY DAY SOLD: 05/23/2021 [facility] pantoprazole 40 MG Delayed Release Oral Tablet PANTOPRAZOLE SODIUM 10/27/2020 12:00:00 AM EST tablet,delayed release (DR/EC) 30 T KAR ONE TABLET BY MOUTH EVERY DAY TAKE ONE TABLET BY MOUTH EVERY DAY SOLD: 04/01/2021 [facility] pantoprazole 40 MG Delayed Release Oral Tablet PANTOPRAZOLE SODIUM 10/27/2020 12:00:00 AM EST tablet,delayed release (DR/EC) 30 T KAR ONE TABLET BY MOUTH EVERY DAY TAKE ONE TABLET BY MOUTH EVERY DAY SOLD: 02/09/2021 [facility] 324 mg (38 mg iron) 10/22/2020 12:00:00 AM EST tablet 30 TAKE ONE TABLET BY MOUTH EVERY DAY WITH WATER OR JUICE BETWEEN MEALS TAKE ONE TABLET BY MOUTH EVERY DAY WITH WATER OR JUICE BETWEEN MEALS SOLD: 12/15/2020 [facility] 324 mg (38 mg iron) 10/22/2020 12:00:00 AM EST tablet 30 TAKE ONE TABLET BY MOUTH EVERY DAY WITH WATER OR JUICE BETWEEN MEALS TAKE ONE TABLET BY MOUTH EVERY DAY WITH WATER OR JUICE BETWEEN MEALS SOLD: 11/18/2020 [facility] 324 mg (38 mg iron) 10/22/2020 12:00:00 AM EST tablet 30 TAKE ONE TABLET BY MOUTH EVERY DAY WITH WATER OR JUICE BETWEEN MEALS TAKE ONE TABLET BY MOUTH EVERY DAY WITH WATER OR JUICE BETWEEN MEALS SOLD: 02/09/2021 [facility] 324 mg (38 mg iron) 10/22/2020 12:00:00 AM EST tablet 30 TAKE ONE TABLET BY MOUTH EVERY DAY WITH WATER OR JUICE BETWEEN MEALS TAKE ONE TABLET BY MOUTH EVERY DAY WITH WATER OR JUICE BETWEEN MEALS SOLD: 10/22/2020 [facility] 324 mg (38 mg iron) 10/22/2020 12:00:00 AM EST tablet 30 TAKE ONE TABLET BY MOUTH EVERY DAY WITH WATER OR JUICE BETWEEN MEALS TAKE ONE TABLET BY MOUTH EVERY DAY WITH WATER OR JUICE BETWEEN MEALS SOLD: 01/12/2021 [facility] pantoprazole 40 MG Delayed Release Oral Tablet PANTOPRAZOLE SODIUM 10/01/2020 12:00:00 AM EST tablet,delayed release (DR/EC) 30 T KAR ONE TABLET BY MOUTH EVERY DAY TAKE ONE TABLET BY MOUTH EVERY DAY SOLD: 06/18/2021 [facility] pantoprazole 40 MG Delayed Release Oral Tablet PANTOPRAZOLE SODIUM 10/01/2020 12:00:00 AM EST tablet,delayed release (DR/EC) 30 T KAR ONE TABLET BY MOUTH EVERY DAY TAKE ONE TABLET BY MOUTH EVERY DAY SOLD: 01/13/2021 [facility] pantoprazole 40 MG Delayed Release Oral Tablet PANTOPRAZOLE SODIUM 10/01/2020 12:00:00 AM EST tablet,delayed release (DR/EC) 30 T KAR ONE TABLET BY MOUTH EVERY DAY TAKE ONE TABLET BY MOUTH EVERY DAY SOLD: 04/27/2021 [facility] pantoprazole 40 MG Delayed Release Oral Tablet PANTOPRAZOLE SODIUM 10/01/2020 12:00:00 AM EST tablet,delayed release (DR/EC) 30 T KAR ONE TABLET BY MOUTH EVERY DAY TAKE ONE TABLET BY MOUTH EVERY DAY SOLD: 11/24/2020 [facility] pantoprazole 40 MG Delayed Release Oral Tablet PANTOPRAZOLE SODIUM 10/01/2020 12:00:00 AM EST tablet,delayed release (DR/EC) 30 T KAR ONE TABLET BY MOUTH EVERY DAY TAKE ONE TABLET BY MOUTH EVERY DAY SOLD: 10/01/2020 [facility] 90 mcg/actuation 08/29/2020 12:00:00 AM EDT HFA aerosol inha ler 18 INHALE TWO PUFFS BY MOUTH EVERY 4 HOURS NEEDED INHALE TWO PUFFS BY MOUTH EVERY 4 HOURS NEEDED SOLD: 10/27/2020 [facility] 90 mcg/actuation 08/29/2020 12:00:00 AM EDT HFA aerosol inha ler 18 INHALE TWO PUFFS BY MOUTH EVERY 4 HOURS NEEDED INHALE TWO PUFFS BY MOUTH EVERY 4 HOURS NEEDED SOLD: 09/14/2020 [facility] 90 mcg/actuation 08/29/2020 12:00:00 AM EDT HFA aerosol inha ler 18 INHALE TWO PUFFS BY MOUTH EVERY 4 HOURS NEEDED INHALE TWO PUFFS BY MOUTH EVERY 4 HOURS NEEDED SOLD: 10/13/2020 [facility] 90 mcg/actuation 08/29/2020 12:00:00 AM EDT HFA aerosol inha ler 18 INHALE TWO PUFFS BY MOUTH EVERY 4 HOURS NEEDED INHALE TWO PUFFS BY MOUTH EVERY 4 HOURS NEEDED SOLD: 08/29/2020 [facility] 90 mcg/actuation 08/29/2020 12:00:00 AM EDT HFA aerosol inha ler 18 INHALE TWO PUFFS BY MOUTH EVERY 4 HOURS NEEDED INHALE TWO PUFFS BY MOUTH EVERY 4 HOURS NEEDED SOLD: 09/29/2020 [facility] 90 mcg/actuation 08/29/2020 12:00:00 AM EDT HFA aerosol inha ler 18 INHALE TWO PUFFS BY MOUTH EVERY 4 HOURS NEEDED INHALE TWO PUFFS BY MOUTH EVERY 4 HOURS NEEDED SOLD: 11/11/2020 [facility] 81 mg 08/20/2020 12:00:00 AM EDT tablet,delayed release (DR/EC) 30 TAKE ONE TABLET BY MOUTH EVERY DAY TAKE ONE TABLET BY MOUTH EVERY DAY SOLD: 08/20/2020 [facility] 81 mg 08/20/2020 12:00:00 AM EDT tablet,delayed release (DR/EC) 30 TAKE ONE TABLET BY MOUTH EVERY DAY TAKE ONE TABLET BY MOUTH EVERY DAY SOLD: 01/07/2021 [facility] 81 mg 08/20/2020 12:00:00 AM EDT tablet,delayed release (DR/EC) 30 TAKE ONE TABLET BY MOUTH EVERY DAY TAKE ONE TABLET BY MOUTH EVERY DAY SOLD: 10/15/2020 [facility] 81 mg 08/20/2020 12:00:00 AM EDT tablet,delayed release (DR/EC) 30 TAKE ONE TABLET BY MOUTH EVERY DAY TAKE ONE TABLET BY MOUTH EVERY DAY SOLD: 12/10/2020 [facility] 81 mg 08/20/2020 12:00:00 AM EDT tablet,delayed release (DR/EC) 30 TAKE ONE TABLET BY MOUTH EVERY DAY TAKE ONE TABLET BY MOUTH EVERY DAY SOLD: 09/17/2020 [facility] 81 mg 08/20/2020 12:00:00 AM EDT tablet,delayed release (DR/EC) 30 TAKE ONE TABLET BY MOUTH EVERY DAY TAKE ONE TABLET BY MOUTH EVERY DAY SOLD: 11/12/2020 [facility] 250 mg 08/13/2020 12:00:00 AM EDT tablet 14 TAKE ONE TABLET BY MOUTH TWICE A DAY FOR 7 DAYS TAKE ONE TABLET BY MOUTH TWICE A DAY FOR 7 DAYS SOLD: 08/13/2020 [facility] 90 mcg/actuation 06/04/2020 12:00:00 AM EDT HFA aerosol inha ler 18 INHALE 2 PUFFS BY MOUTH EVERY 4 HOURS NEEDED INHALE 2 PUFFS BY MOUTH EVERY 4 HOURS NEEDED SOLD: 08/13/2020 [facility] 324 mg (38 mg iron) 04/11/2020 12:00:00 AM EDT tablet 30 TAKE ONE TABLET BY MOUTH EVERY DAY WITH WATER OR JUICE BETWEEN MEALS TAKE ONE TABLET BY MOUTH EVERY DAY WITH WATER OR JUICE BETWEEN MEALS SOLD: 08/25/2020 [facility] pantoprazole 40 MG Delayed Release Oral Tablet PANTOPRAZOLE SODIUM 03/17/2020 12:00:00 AM EDT tablet,delayed release (DR/EC) 30 T KAR ONE TABLET BY MOUTH EVERY DAY TAKE ONE TABLET BY MOUTH EVERY DAY SOLD: 08/10/2020 [facility] pantoprazole 40 MG Delayed Release Oral Tablet PANTOPRAZOLE SODIUM 03/17/2020 12:00:00 AM EDT tablet,delayed release (DR/EC) 30 T KAR ONE TABLET BY MOUTH EVERY DAY TAKE ONE TABLET BY MOUTH EVERY DAY SOLD: 09/07/2020 [facility] Ciprofloxacin 250 MG Oral Tablet ciprofloxacin 250 mg tablet ciprofloxacin 250 mg tablet completed ciprofloxaci n 250 MG Oral Tablet [place] [facility]) Ciprofloxacin 250 MG Oral Tablet ciprofloxacin 250 mg tablet ciprofloxacin 250 mg tablet completed ciprofloxaci n 250 MG Oral Tablet [facility]) ferrous sulfate 325 MG Oral Tablet [facility] 325 mg (65 mg iron) tablet TAKE ONE TABLET BY MOUTH EVERY DAY FeroSul 325 mg (65 mg iron) tablet TAKE ONE TABLET BY MOUTH EVERY DAY completed ferrou s sulfate 325 MG Oral Tablet [facility]) Ciprofloxacin 250 MG Oral Tablet ciprofloxacin 250 mg tablet ciprofloxacin 250 mg tablet completed ciprofloxaci n 250 MG Oral Tablet [place] ([facility]) Aspirin 81 MG Delayed Release Oral Table t aspirin 81 mg tablet,delayed release TAKE ONE TABLET BY MOUTH EVERY DAY aspirin 81 mg tablet,delayed release [place] E ONE TABLET BY MOUTH EVERY DAY completed aspirin 81 MG Delayed Release Oral Tablet [facility]) Potassium Chloride 10 MEQ Extended Relea se Oral Tablet potassium chloride ER 10 mEq tablet,extended release TAKE ONE TABLET BY MOUTH TWICE A DAY WITH FOOD potassium chloride ER 10 mEq tablet,extended release TAKE ONE TABLET BY MOUTH TWICE A DAY WITH FOOD completed potassium chloride 10 MEQ Extended Release Oral Tablet [place] ([facility]) Sucralfate 1000 MG Oral Tablet sucralfat e 1 gram tablet Take 1 tablet 4 times a day by oral route. sucralfate 1 gram tablet Take 1 tablet 4 times a day by oral route. 1 completed sucralfate 1000 MG Oral Tablet [facility] ([facility]) olodaterol 0.0025 MG/ACTUAT / tiotropium 0.0025 MG/ACTUAT Metered Dose Inhaler Stiolto Respimat 2.5 mcg-2.5 mcg/actuation solution for inhalation INHALE TWO PUFFS BY MOUTH EVERY DAY Stiolto Respimat 2.5 mcg-2.5 mcg/actuati on solution for inhalation INHALE TWO PUFFS BY MOUTH EVERY DAY completed olodaterol 0.0025 MG/ACTUAT / tiotropium 0.0025 MG/ACTUAT Inhalation [place] [facility] ([facility]) Ciprofloxacin 250 MG Oral Tablet ciprofloxacin 250 mg tablet ciprofloxacin 250 mg tablet completed ciprofloxaci n 250 MG Oral Tablet [place] ([facility]) Insurance Providers Payer name Policy type / Coverage type Policy ID Covered libertarian ID Covered libertarian's relationship to sin Policy Sin Plan Information BLUE CROSS BISHOP PLAN [id number] SP [id number] [facility] I [id number] Self [id number] MEDICAID M [id number] Self [id number] Managed Care [facility] Community Plan P [id number] S [id number] Medicaid S [id number] S [id number] MEDICAID -O/[id number] EMERGENCY ROOM [id number] [place] [id number] SP [id number] Medicaid P [id number] S [id number] ANSI-Medicaid [id number] ANSI-Medicaid [id number] ANSI-Medicaid [id number] ANSI-Medicaid [id number] [facility] [id number] ANSI-Medicaid [id number] ANSI-Medicaid [id number] ANSI-Medicaid [id number] ANSI-Medicaid [id number] ANSI-Medicaid [id number] ANSI-Medicaid [id number] ANSI-Medicaid [id number] ANSI-Medicaid [id number] ANSI-Medicaid [id number] ANSI-Medicaid [id number] [facility]) O [id number] S [id number] [facility] Community Plan Commercial [id number] Self [id number] [facility]) O [id number] S [id number] [facility] COMMUNITY PLAN MCDO [id number] SP [id number] [facility](MCAID) O [id number] S [id number] [facility] O [id number] S [id number] [employer] B [id number] S [id number] MEDICAID W [id number] S [id number] BLUE CHOICE OPTION O [id number] S [id number] BC HMOBLUE OPTION MC 2 [id number] SELF PAY 2 UNAVAILABLE 1 [place] 3 [id number] HMO BLUE [id number] SP [id number] BLUE CROSS BISHOP PLAN [id number] SP [id number] MEDICAID [id number] SP [id number] [employer] COMMUNITY PLAN MCDO [id number] SP [id number] COMMUNITY PLAN MCDO [id number] SP [id number] [employer] COMMUNITY PLAN XIX [id number] 18 [id number] [employer] COMMUNITY PLAN XIX -I/P [id number] 18 [id number] UN COMMUNITY PLAN XIX [id number] Problems, Conditions, and Diagnoses Code Display Name Description Problem Type Effective Dates Data Source(s) Y900 Blood alcohol level of less than 20 mg/1 00 ml Blood alcohol level of less than 20 mg/100 ml Diagnosis 01/30/2021 10:11:00 PM EDT [facility] N2889 Other specified disorders of kidney and ureter Other specified disorders of kidney and ureter Diagnosis 01/30/2021 10:11:00 PM EDT [facility] K219 Gastro-esophageal reflux disease without esophagitis Gastro-esophageal reflux disease without esophagitis Diagnosis 01/30/2021 10:11:00 PM ED T [facility] J449 Chronic obstructive pulmonary disease, u nspecified Chronic obstructive pulmonary disease, unspecified Diagnosis 01/30/2021 10:11:00 PM EDT [facility] R000 Tachycardia, unspecified Tachycardia, unspecified Diag nosis 01/30/2021 10:11:00 PM EDT [facility] F1020 Alcohol dependence, uncomplicated Alcohol depend ence, uncomplicated Diagnosis 01/30/2021 10:11:00 PM EDT [facility] [id number] Nicotine dependence, cigarettes, uncompl icated Nicotine dependence, cigarettes, uncomplicated Diagnosis 01/30/2021 10:11:00 PM EDT [facility] E872 Acidosis Acidosis Diagnosis 01/30/2021 10:11:00 PM ED T [facility] B20 Human immunodeficiency virus [HIV] disea se Human immunodeficiency virus [HIV] disease Diagnosis 01/30/2021 10:11:00 PM EDT [facility] anemia, bed bugs anemia, bed bugs Diagnosis 01/30/2021 08 :46:00 PM EDT [facility] Z1152 ENCOUNTER FOR SCREENING FOR COVID-19 ENCOUNTER F OR SCREENING FOR COVID-19 Diagnosis 01/30/2021 01:50:00 PM EDT [facility] Y999 Unspecified external cause status Unspecified ex ternal cause status Diagnosis 01/30/2021 01:50:00 PM EDT [facility] Y939 Activity, unspecified Activity, unspecified Diagnosis 01/30/2021 01:50:00 PM EDT [facility] [id number] Insect bite (nonvenomous), left lower le g, initial encounter Insect bite (nonvenomous), left lower leg, initial encounter Diagnosis 01/06 01:50:00 PM EDT [facility] [id number] Insect bite (nonvenomous), right lower l eg, initial encounter Insect bite (nonvenomous), right lower leg, initial encounter Diagnosis 01/30/2021 01:50:00 PM EDT [facility] [id number] Insect bite (nonvenomous) of lower back and pelvis, initial encounter Insect bite (nonvenomous) of lower back and pelvis, initial encounter Diagnosis 01/30/2021 01:50:00 PM EDT [facility] [id number] Insect bite (nonvenomous) of left upper arm, initial encounter Insect bite (nonvenomous) of left upper arm, initial encounter Diagnosis 01/30/2021 01:50:00 PM EDT [facility] [id number] Insect bite (nonvenomous) of right upper arm, initial encounter Insect bite (nonvenomous) of right upper arm, initial encounter Diagnosis 01/30/2021 01:50:00 PM EDT [facility] [id number] Insect bite (nonvenomous) of abdominal w all, initial encounter Insect bite (nonvenomous) of abdominal wall, initial encounter Diagnosis 01/30/2021 01:50:00 PM EDT [facility] D649 Anemia, unspecified Anemia, unspecified Diagnosis 0 01/30/2021 01:50:00 PM [facility] [id number] intermediate card tender (current) use of aspirin penitentiary (cu rrent) use of aspirin Diagnosis 01/04/2021 01:36:00 PM [facility] Z21 Asymptomatic human immunodeficiency viru s [HIV] infection status Asymptomatic human immunodeficiency virus [HIV] infection status Diagnosis 01/04/2021 01:36:00 PM [facility] I10 Essential (primary) hypertension Essential (primary) h ypertension Diagnosis 01/04/2021 01:36:00 PM [facility] R460 Very low level of personal hygiene Very low leve l of personal hygiene Diagnosis 01/04/2021 01:36:00 PM [facility] D509 Iron deficiency anemia, unspecified Iron deficie ncy anemia, unspecified Diagnosis 01/04/2021 01:36:00 PM [facility] R7989 Other specified abnormal findings of blo od chemistry Other specified abnormal findings of blood chemistry Diagnosis 01/04/2021 01:36:00 [facility] [facility] anemia, bloody stools anemia, bloody stools Diagnosis 11/11/2020 07:23:00 PM [facility] [id number] Invalid ICD10 Description Invalid ICD10 Description Di agnosis 11/11/2020 01:26:00 PM [facility] 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) Diagnosis 11/11/2020 01:26:00 PM [facility] [id number] Nicotine dependence, unspecified, uncomp licated Nicotine dependence, unspecified, uncomplicated Diagnosis 11/11/2020 01:26:00 PM [facility] N281 Cyst of kidney, acquired Cyst of kidney, acquired Diag nosis 11/11/2020 01:26:00 PM [facility] [id number] Alcohol dependence with intoxication, un complicated Alcohol dependence with intoxication, uncomplicated Diagnosis 11/11/2020 01:26:00 PM [facility] B182 Chronic viral hepatitis C Chronic viral hepatitis C Di agnosis 11/11/2020 01:26:00 PM [facility] N200 Calculus of kidney Calculus of kidney Diagnosis 01:26:00 PM [facility] K625 Hemorrhage of anus and rectum Hemorrhage of anus and r ectum Diagnosis 11/11/2020 01:26:00 PM [facility] K29.20 Alcoholic gastritis Acute alcoholic gaby ritis, presence of bleeding unspecified Problem 09/10/2021 12:00:00 AM EDT [facility] 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 Problem 07/23/20 21 12:00:00 AM EDT eCW1 ([facility]) [id number] Abnormal findings on diagnostic imaging of lung Abnormal Findings on Diagnostic Imaging of Lung Problem 06/22/2021 12:00:00 AM EDT [facility] ([facility]) J98.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 Problem 03/12/2021 1 2:00:00 AM EDT eCW1 ([facility]) [id number] Anemia Anemia Problem 02/16/2021 12:00:00 AM ED T [facility] ([facility]) [id number] Infestation by bed bug Infestation by Bed Bug Problem 02/16/2021 12:00:00 AM EDT [facility] ([facility]) [id number] Anemia Anemia Problem 02/16/2021 12:00:00 AM ED T [place] ([facility]) [id number] Infestation by bed bug Infestation by Bed Bug Problem 02/16/2021 12:00:00 AM EDT [place] ([facility]) [id number] Pruritus of skin Pruritus of Skin Problem 02/11/2021 12 :00:00 AM EDT [place] ([facility]) 106022342 Pruritus of skin Pruritus of Skin Problem 02/11/2021 12 :00:00 AM EDT [place] ([facility]) 24093140 Alcohol abuse Alcohol Abuse Problem 11/11/2020 12:00:00 AM EST [place] ([facility]) 85632186 Bipolar disorder Bipolar Disorder Problem 11/11/2020 12 :00:00 AM EST [place] ([facility]) 09220972 Alcohol abuse Alcohol Abuse Problem 11/11/2020 12:00:00 AM EST [place] ([facility]) 98943060 Bipolar disorder Bipolar Disorder Problem 11/11/2020 12 :00:00 AM EST [place] ([facility]) 37979897 Alcohol abuse Alcohol Abuse Problem 11/11/2020 12:00:00 AM EST [place] ([facility]) 60299118 Bipolar disorder Bipolar Disorder Problem 11/11/2020 12 :00:00 AM EST [place] ([facility]) 91588236 Alcohol abuse Alcohol Abuse Problem 11/11/2020 12:00:00 AM EST [place] ([facility]) 22568175 Bipolar disorder Bipolar Disorder Problem 11/11/2020 12 :00:00 AM EST [place] ([facility]) V65.8 Person consulting for explanation of exa mination or test findings Person consulting for explanation of examination or test findings 08/13/2020 02:31:01 PM EDT [facility] 578.1 Hematochezia Hematochezia 08/13/2020 02:31:01 P M EDT [facility] V04.81 Needs influenza immunization Needs influenza immunizat ion 08/13/2020 02:31:01 PM EDT [facility] [id number] Urinary tract infection, site not specif ied Urinary tract infection, site not specified 08/13/2020 02:31:01 PM EDT [facility] 14304377 Alcohol dependence, uncomplicated Alcohol dependence, uncomplicated 08/13/2020 02:31:01 PM EDT [facility] [id number] Patient asked to attend Patient Asked to Attend [facility] 08/13/2020 12:00:00 AM EDT [place] ([facility]) [id number] Under immunized Under Immunized Problem 08/13/2020 12:0 0:00 AM EDT [place] ([facility]) 21356195 Urinary tract infectious disease Urinary Tract I nfectious Disease Problem 08/13/2020 12:00:00 AM EDT [place] ([facility]) 9278033 Melena Melena Problem 08/13/2020 12:00:00 AM ED T [facility] ([facility]) 87503721 Alcohol dependence Alcohol Dependence Problem 05/2020 12:00:00 AM EDT [place] ([facility]) 990552636 Patient asked to attend Patient Asked to Attend Proble 08/13/2020 12:00:00 AM EDT [place] ([facility]) 185732314 Under immunized Under Immunized Problem 08/13/2020 12:0 0:00 AM EDT [place] ([facility]) 56915526 Urinary tract infectious disease Urinary Tract I nfectious Disease Problem 08/13/2020 12:00:00 AM EDT [facility] ([facility]) 7498296 Melena Melena Problem 08/13/2020 12:00:00 AM ED T [facility] ([facility]) 54028506 Alcohol dependence Alcohol Dependence Problem 05/2020 12:00:00 AM EDT [place] ([facility]) 098510095 Patient asked to attend Patient Asked to Attend [facility] 08/13/2020 12:00:00 AM EDT [place] ([facility]) 424449123 Under immunized Under Immunized Problem 08/13/2020 12:0 0:00 AM EDT [place] ([facility]) 41642781 Urinary tract infectious disease Urinary Tract I nfectious Disease Problem 08/13/2020 12:00:00 AM EDT [place] ([facility]) 0026453 Melena Melena Problem 08/13/2020 12:00:00 AM ED T [place] ([facility]) 16139141 Alcohol dependence Alcohol Dependence Problem 05/2020 12:00:00 AM EDT [place] ([facility]) [id number] Patient asked to attend Patient Asked to Attend Proble m 08/13/2020 12:00:00 AM EDT [place] ([facility]) 445796220 Under immunized Under Immunized Problem 08/13/2020 12:0 0:00 AM EDT [place] ([facility]) 10810550 Urinary tract infectious disease Urinary Tract I nfectious Disease Problem 08/13/2020 12:00:00 AM EDT [place] ([facility]) 4702179 Melena Melena Problem 08/13/2020 12:00:00 AM ED T [place] ([facility]) 62870898 Alcohol dependence Alcohol Dependence Problem 05/2020 12:00:00 AM EDT [place] ([facility]) Surgeries/Procedures Procedure Description Date Indications Data Source(s) 09/10/2021 12:00:00 AM EDT [facility] ([facility]) Ultrasonography of Bilateral Kidneys Ultrasonography of Bila teral Kidneys 01/31/2021 12:00:00 AM [facility] Introduction of Other Anti-infective int o Peripheral Vein, Percutaneous Approach Introduction of Other Anti-infective int o Peripheral Vein, Percutaneous Approach 01/30/2021 12:00:00 AM EDT [facility] Transfusion of Nonautologous Red Blood C ells into Peripheral Vein, Percutaneous Approach Transfusion of Nonautologous Red Blood C ells into Peripheral Vein, Percutaneous Approach 01/30/2021 12:00:00 AM EDT [facility] Introduction of Electrolytic and Water B alance Substance into Peripheral Vein, Percutaneous Approach Introduction of Electrolytic and Water B alance Substance into Peripheral Vein, Percutaneous Approach 01/30/2021 12:00:00 AM [facility] Results ID Date Data Source CELESTIN Fibrosure [id number] 09/10/2021 12:00:00 AM EDT eCW1 ([facility]) Name Value Range Interpretation Code Description Data Daisy rce(s) Supporting Document(s) 0.22 0.00-0.30 eCW1 ([facility]) F1-F2 . eCW1 ([facility]) 0.32 0.00-0.21 eCW1 ([facility]) . eCW1 ([facility]) 0.25 0.25 eCW1 ([facility]) . eCW1 ([facility]) 199 29-370 eCW1 ([facility]) 102 . eCW1 ([facility]) 62 . eCW1 ([facility]) 241 110-276 eCW1 ([facility]) 0.3 0.0-1.2 eCW1 ([facility]) 261 0-65 eCW1 ([facility]) 178 101-178 eCW1 ([facility]) 144 100-199 eCW1 ([facility]) 33 0-55 eCW1 ([facility]) 46 65-99 eCW1 ([facility]) 58 0-40 eCW1 ([facility]) . eCW1 ([facility]) . eCW1 ([facility]) 96 0-149 eCW1 ([facility]) . eCW1 ([facility]) . eCW1 ([facility]) . eCW1 ([facility]) . eCW1 ([facility]) ID Date Data Source HIV-1 RNA PCR QUANT [id number] (Viral Load) 09/10/2021 12:00:0 0 AM EDT eCW1 ([facility]) Name Value Range Interpretation Code Description Data Daisy rce(s) Supporting Document(s) HIV 1 RNA [Units/volume] (viral load) in Serum or Plasma by Probe with amplification <20 . HIV-1 RNA PCR QUANT 2 [id number] eCW1 ([facility]) ID Date Data Source CD4/CD8 RATIO PROFILE [id number] 09/10/2021 12:00:00 AM EDT eC W1 ([facility]) Name Value Range Interpretation Code Description Data Daisy rce(s) Supporting Document(s) 42.3 30.8-58.5 %CD4 Pos Lymphs eCW1 ([facility]) %CD4 Pos Lymphs Deprecated CD4 in Blood [phone] Abs CD4 Help er eCW1 ([facility]) Abs CD4 [place] 412 109-897 Abs CD8 Suppres eCW1 ([facility]) Abs CD8 Suppres 41.2 12.0-35.5 % CD8 Pos Lymph eCW1 ([facility]) % CD8 Pos Lymph 1.03 0.92-3.72 CD4/CD8 Ratio eCW1 ([facility]) CD4/CD8 Ratio 2.93 4.14-5.80 RBC eCW1 ([facility]) RBC 8.0 3.4-10.8 WBC eCW1 ([facility]) WBC 106 79-97 MCV eCW1 ([facility]) MCV 31.0 37.5-51.0 HCT eCW1 ([facility]) HCT 11.1 13.0-17.7 HGB eCW1 ([facility]) HGB 35.8 31.5-35.7 MCHC eCW1 ([facility]) MCHC 37.9 26.6-33.0 MCH eCW1 ([facility]) MCH 391 150-450 Platelets eCW1 ([facility]) Platelets 13.6 11.6-15.4 RDW eCW1 ([facility]) RDW 13 Not Estab. Lymphocytes eCW1 ([facility]) Lymphocytes 72 Not Estab. Neutrophils eCW1 ([facility]) Neutrophils 13 Not Estab. Monocytes eCW1 ([facility]) Monocytes 1 Not Estab. Basophils eCW1 ([facility]) Basophils 5.8 1.4-7.0 ABS Neutophils eCW1 ([facility]) ABS Neutophils 0 Not Estab. Eosinophils eCW1 ([facility]) Eosinophils 1.0 0.7-3.1 ABS Lymphs eCW1 ([facility]) ABS Lymphs 0.0 0.0-0.4 ABS Eosinophils eCW1 ([facility]) ABS Eosinophils 0.1 0.0-0.2 ABS Basophils eCW1 ([facility]) ABS Basophils 1.0 0.1-0.9 ABS Monocytes eCW1 ([facility]) ABS Monocytes ID Date Data Source Comprehensive Metabolic Profile (CMP) 09/10/2021 12:00:00 AM EDT eCW1 ([facility]) Name Value Range Interpretation Code Description Data Daisy rce(s) Supporting Document(s) 0.59 0.70-1.30 CREATININE FOR GFR eCW1 ([facility]) 37 70-100 GLUCOSE, FASTING eCW1 ([facility] 5 7-18 BLOOD UREA NITROGEN eCW1 ([facility]) 4.1 3.5-5.1 POTASSIUM SERUM eCW1 ([facility]) > 60.0 >56 GLOMERULAR FILTRATION RATE eCW 1 ([facility]) 138 136-145 SODIUM LEVEL eCW1 ([facility]) 9.1 8.5-10.1 CALCIUM LEVEL eCW1 ([facility]) 23 21-32 CARBON DIOXIDE LEVEL eCW1 ([facility]) 103 98-107 CHLORIDE LEVEL eCW1 ([facility]) 51 7-37 AST/SGOT eCW1 ([facility]) 160 45-117 ALKALINE PHOSPHATASE eCW1 ([facility]) 0.3 0.2-1.0 BILIRUBIN,TOTAL eCW1 ([facility]) 42 12-78 ALT/SGPT eCW1 ([facility]) 0.6 ALBUMIN/GLOBULIN RATIO eCW1 ([facility]) 5.8 6.4-8.2 TOTAL PROTEIN eCW1 ([facility]) 2.1 3.2-5.2 ALBUMIN eCW1 ([facility]) ID Date Data Source SPUTUM CULTURE AND GRAM STAIN 07/23/2021 12:00:00 AM EDT eCW 1 ([facility]) Name Value Range Interpretation Code Description Data Daisy rce(s) Supporting Document(s) SPUTUM CULTURE AND GRAM STAIN eCW1 ([facility]) ID Date Data Source AFB SMEAR & CULTURE 07/23/2021 12:00:00 AM EDT [facility]CW[facility] Name Value Range Interpretation Code Description Data Daisy rce(s) Supporting Document(s) AFB SMEAR & CULTURE eCW1 ([facility]) ID Date Data Source [id number] 06/04/2021 06:47:00 PM EDT [facility] Name Value Range Interpretation Code Description Data Daisy rce(s) Supporting Document(s) SARS coronavirus 2 RNA [Presence] in Res piratory specimen by [facility] with probe detection NEGATIVE [facility] This lab was ordered by [facility] a nd reported by [facility]. ID Date Data Source TOTAL IRON BINDING CAPACIT 06/04/2021 12:00:00 AM EDT eCW1 ( [facility]) Name Value Range Interpretation Code Description Data Daisy rce(s) Supporting Document(s) 84 65-175 IRON (FE) eCW1 ([facility]) 180 250-450 TOTAL IRON BINDING CAPACI TY eCW1 ([facility]) 46.7 19.7-50.0 PERCENT SATURATION eCW1 ([facility]) ID Date Data Source CBC with Differential 06/04/2021 12:00:00 AM EDT eCW1 ([facility]) Name Value Range Interpretation Code Description Data Daisy rce(s) Supporting Document(s) 9.9 4.0-10.0 WHITE BLOOD COUNT eCW1 ([facility]) 102.4 80.0-96.0 MEAN CORPUSCULAR VOLUME e CW1 ([facility]) 42.6 42.0-52.0 HEMATOCRIT eCW1 ([facility]) 13.7 13.5-17.5 HEMOGLOBIN eCW1 ([facility]) 4.16 4.30-6.10 RED BLOOD COUNT eCW1 ([facility]) 293 150-450 PLATELET COUNT, AUTOMATED eCW1 ([facility]) 17.9 11.5-14.5 RED CELL DISTRIBUTION WID TH eCW1 ([facility]) 32.9 27.0-33.0 MEAN CORPUSCULAR HEMOGLOB IN eCW1 ([facility]) 32.2 32.0-36.5 MEAN CORPUSCULAR HGB CONC eCW1 ([facility]) 0.6 0.0-3.0 EOS % eCW1 ([facility]) 8.7 24.0-44.0 LYMPH % eCW1 ([facility]) 76.2 36.0-66.0 NEUTROPHILS % eCW1 ([facility]) 11.1 2.0-8.0 MONO % eCW1 ([facility]) 7.5 1.5-8.5 NEUTROPHILS # eCW1 ([facility]) 1.0 0.0-1.0 BASO % eCW1 ([facility]) 1.1 0.0-0.8 MONO # eCW1 ([facility]) 0.1 0.0-0.2 BASO # eCW1 ([facility]) 0.1 0.0-0.5 EOS # eCW1 ([facility]) 0.9 1.5-5.0 LYMPH # eCW1 ([facility]) ID Date Data Source QUANTIFERON TB GOLD TEST 03/12/2021 12:00:00 AM EDT eCW1 ([facility]) Name Value Range Interpretation Code Description Data Daisy rce(s) Supporting Document(s) Laboratory studies (set) QUANTIFERON TB GOLD TEST eCW1 ([facility]) ID Date Data Source HISTOPLASMA ANTIGEN BLOOD PCR 03/12/2021 12:00:00 AM EDT eCW 1 ([facility]) Name Value Range Interpretation Code Description Data Daisy rce(s) Supporting Document(s) HISTOPLASMA ANTIGEN BLOOD PCR eCW1 ([facility]) ID Date Data Source FUNGUS SM & CULT OTHER SOURCE 03/12/2021 12:00:00 AM EDT eCW 1 ([facility]) Name Value Range Interpretation Code Description Data Daisy rce(s) Supporting Document(s) FUNGUS SM & CULT OTHER SOURCE eCW1 ([facility]) ID Date Data Source [id number] FOL 03/12/2021 12:00:00 AM EDT [facility] Name Value Range Interpretation Code Description Data Daisy rce(s) Supporting Document(s) 1182 VITAMIN B12 LEVEL eCW1 ([facility]) 9.8 FOLATE eCW1 ([facility]) ID Date Data Source [id number] 03/04/2021 02:25:00 PM EDT [facility]) Name Value Range Interpretation Code Description Data Daisy rce(s) Supporting Document(s) ID Date Data Source [id number] 03/04/2021 02:08:00 PM EDT [facility]) Name Value Range Interpretation Code Description Data Daisy rce(s) Supporting Document(s) MRSA PCR screen not detected negative MRSA PCR Screen AT [facility]) ID Date Data Source [id number] 03/04/2021 06:32:00 AM EDT [facility]) Name Value Range Interpretation Code Description Data Daisy rce(s) Supporting Document(s) blood urea nitrogen 9 mg/dL 7-18 Blood Urea Nitro gen [place] ([facility]) glucose, fasting 80 mg/dL 70-100 Glucose, Fasting AT [facility] ([facility]) glomerular filtration rate > 60.0 >56 Glomerula r Filtration Rate [place] ([facility]) creatinine for GFR 0.72 mg/dL 0.70-1.30 Creatinine for GF R [place] ([facility]) sodium level 136 mEq/L 136-145 Sodium Level EV[place] ([facility]) potassium serum 3.9 mEq/L 3.5-5.1 Potassium [facility] chloride level 106 mEq/L 98-107 Chloride Level [place] ([facility]) carbon dioxide level 23 mEq/L 21-32 Carbon Dioxide Level [place] ([facility]) anion gap 7 mEq/L 8-16 Below low normal Anion Gap [place] ( [facility]) calcium level 8.1 mg/dL 8.5-10.1 Below low normal Calcium Level AT [facility]) ID Date Data Source [id number] 03/04/2021 06:32:00 AM EDT [place] ([facility]) Name Value Range Interpretation Code Description Data Daisy rce(s) Supporting Document(s) reticulocyte % 3.6 % 0.5-1.5 Above high normal Reticulocyte % [place] ([facility]) reticulocyte # 96.9 10 17-77 Above high normal Reticulocyte # [place] ([facility]) retic hemoglobin equivalent 29.5 pg 24-36 Retic He moglobin Equivalent [facility]) ID Date Data Source [id number] 03/04/2021 06:32:00 AM EDT [facility]) Name Value Range Interpretation Code Description Data Daisy rce(s) Supporting Document(s) red blood count 2.70 10 4.30-6.10 Below low normal Red Blood Coun t [place] ([facility]) white blood count 12.9 10 4.0-10.0 Above high normal White Blood Count [place] ([facility]) hemoglobin 7.9 g/dL 13.5-17.5 Below low normal Hemoglobin [place] ( [facility]) hematocrit 24.5 % 42.0-52.0 Below low normal Hematocrit [place] ( [facility]) mean corpuscular volume 90.7 fL 80.0-96.0 Mean Corpusc ular Volume [place] ([facility]) mean corpuscular hemoglobin 29.3 pg 27.0-33.0 Mean Cor puscular Hemoglobin [place] ([facility]) red cell distribution width 17.9 % 11.5-14.5 Above high no rmal Red Cell Distribution Width [place] ([facility]) mean corpuscular HGB conc 32.2 g/dL 32.0-36.5 Mean Corpu scular HGB Conc [place] ([facility]) nucleated red blood cell % 0.7 % 0-0 Above high nor mal Nucleated Red Blood Cell % [place] ([facility]) platelet count, automated 675 10 150-450 Platelet C ount, Automated [facility]) ID Date Data Source [id number] 03/04/2021 06:28:00 AM EDT [facility]) Name Value Range Interpretation Code Description Data Daisy rce(s) Supporting Document(s) procalcitonin Procalcitonin [place] ([facility]) ID Date Data Source [id number] 03/03/2021 07:05:00 PM EDT [facility]) Name Value Range Interpretation Code Description Data Daisy rce(s) Supporting Document(s) blood type O positive Blood Type [place] ([facility]) Ab screen (indirect vidya)vis negative Ab Sc reen (Indirect Vidya)vis [facility]) ID Date Data Source [id number] 03/03/2021 07:05:00 PM EDT [facility]) Name Value Range Interpretation Code Description Data Daisy rce(s) Supporting Document(s) packed cells transfused product: packed cells count: 2 Packed Cells [place] ([facility]) ID Date Data Source [id number] 03/03/2021 05:44:00 PM EDT [facility]) Name Value Range Interpretation Code Description Data Daisy rce(s) Supporting Document(s) influenza A amplification negative negative Influenza a Amplification [place] ([facility]) influenza B amplification negative negative Influenza B Amplification [place] ([facility]) RSV amplification negative negative RSV Amplification [place] ([facility]) sars covid-19 amplification negative negative Sars Cov id-19 Amplification [facility]) ID Date Data Source [id number] 03/03/2021 05:44:00 PM EDT [facility] Name Value Range Interpretation Code Description Data Daisy rce(s) Supporting Document(s) SARS coronavirus 2 RNA [Presence] in Res piratory specimen by [facility] with probe detection NEGATIVE [facility] This lab was ordered by [facility] a nd reported by [facility]. ID Date Data Source [id number] 03/03/2021 11:22:00 AM EDT [facility]) Name Value Range Interpretation Code Description Data Daisy rce(s) Supporting Document(s) red blood count 2.04 10 4.30-6.10 Below low normal Red Blood Coun t [facility]) white blood count 15.7 10 4.0-10.0 Above high normal White Blood Count [place] ([facility]) hemoglobin 6.2 g/dL 13.5-17.5 Below low normal Hemoglobin [place] ( [facility]) hematocrit 20.0 % 42.0-52.0 Below low normal Hematocrit [place] ( [facility]) mean corpuscular volume 98.0 fL 80.0-96.0 Above high normal Mean Corpuscular Volume [place] ([facility]) mean corpuscular HGB conc 31.0 g/dL 32.0-36.5 Below low rocio l Mean Corpuscular HGB Conc [place] ([facility]) mean corpuscular hemoglobin 30.4 pg 27.0-33.0 Mean Cor puscular Hemoglobin [facility] ([facility]) red cell distribution width 18.6 % 11.5-14.5 Above high no rmal Red Cell Distribution Width [facility] ([facility]) platelet count, automated 791 10 150-450 Above high norm al Platelet Count, Automated [place] ([facility]) neutrophils % 79.4 % 36.0-66.0 Above high normal Neutrophils % [facility] ([facility]) lymph % 4.5 % 24.0-44.0 Below low normal Lymph % [place] ( [facility]) mono % 10.7 % 2.0-8.0 Above high normal Branch % [place] ([facility]) baso % 0.3 % 0.0-1.0 Baso % [facility] ([facility]) eos % 0.1 % 0.0-3.0 Eos % [facility] ([facility]) immature granulocyte % 5.0 % 0-3.0 Above high normal Immatu re Granulocyte % [place] ([facility]) nucleated red blood cell % 0.6 % 0-0 Above high nor mal Nucleated Red Blood Cell % [facility] ([facility]) neutrophils # 12.5 10 1.5-8.5 Above high normal Neutrophils # [facility] ([facility]) mono # 1.7 10 0.0-0.8 Above high normal Branch # [place] ([facility]) lymph # 0.7 10 1.5-5.0 Below low normal Lymph # [place] ( [facility]) eos # 0.0 10 0.0-0.5 Eos # [facility] ([facility]) baso # 0.0 10 0.0-0.2 Baso # [facility] ([facility]) ID Date Data Source [id number] 03/03/2021 11:22:00 AM EDT [place] ([facility]) Name Value Range Interpretation Code Description Data Daisy rce(s) Supporting Document(s) ferritin 93 NG/mL 26-388 Ferritin [facility] ([facility]) ID Date Data Source [id number] 03/03/2021 11:22:00 AM EDT [facility]) Name Value Range Interpretation Code Description Data Daisy rce(s) Supporting Document(s) iron (fe) 19 ug/dL 65-175 Below low normal Iron (Fe) [facility] ( [facility]) percent saturation 10.2 % 19.7-50.0 Below low normal Percent Sat uration [facility] ([facility]) total iron binding capacity 187 ug/dL 250-450 Below low nor mal Total Iron Binding Capacity [place] ([facility]) ID Date Data Source [id number] 03/03/2021 11:22:00 AM EDT [place] ([facility]) Name Value Range Interpretation Code Description Data Daisy rce(s) Supporting Document(s) glucose, fasting 92 mg/dL 70-100 Glucose, Fasting AT [facility]) blood urea nitrogen 11 mg/dL 7-18 Blood Urea Nitro gen [place] ([facility]) creatinine for GFR 0.94 mg/dL 0.70-1.30 Creatinine for GF R [place] ([facility]) glomerular filtration rate > 60.0 >56 Glomerula r Filtration Rate [facility] ([facility]) sodium level 133 mEq/L 136-145 Below low normal Sodium Level [place] ([facility]) chloride level 103 mEq/L 98-107 Chloride Level [place] ([facility]) potassium serum 4.8 mEq/L 3.5-5.1 Potassium Serum [place] [place] ([facility]) anion gap 7 mEq/L 8-16 Below low normal Anion Gap [facility] ( [facility]) carbon dioxide level 23 mEq/L 21-32 Carbon Dioxide Level [facility] ([facility]) calcium level 8.8 mg/dL 8.5-10.1 Calcium Level [facility] ( [facility]) AST/SGOT 33 U/L 7-37 AST/SGOT [facility] ([facility]) ALT/SGPT 32 U/L 12-78 ALT/SGPT [facility] ([facility]) alkaline phosphatase 121 U/L 45-117 Above high normal Alkaline Phosphatase [facility] ([facility]) total protein 6.1 gm/dL 6.4-8.2 Below low normal Total Protein AT [place] ([facility]) albumin 2.1 gm/dL 3.2-5.2 Below low normal Albumin [facility] ( [facility]) bilirubin,total 0.2 mg/dL 0.2-1.0 Bilirubin,total [place] [place] ([facility]) albumin/globulin ratio Albumin/globu fermin Ratio [facility] ([facility]) ID Date Data Source [id number] 02/02/2021 11:51:00 AM EDT [facility] [address] [place] [address] PHONE: [phone] FAX: [phone] Name .................. : KATHLEEN ENID Le Acct Number.................. : [id number] ROOM. ................. : 109-1 MR Number ................... : [id number] Stay type ............. : I/P Discharge Date......... ... : Admit Date ......... : 01/30/21 Admit Phys .................... : EDU RENTERIA Date of ....... : 1965 Family Phys ................... : NON STAFF Phone .................. : [phone] Age ................................ : 55 Film# .................. .:[id number] Sex ................................. : M Unsigned transcriptions are preliminary reports and do not represent a medical or legal document CT ABD & PELVIS W/ IV ONLY [id number] COMPLETE:01/30/21 17:42 RLB 7208 Reason(s): elevated lactic acid CT OF THE ABDOMEN AND PELVIS WITH CONTRAST: CLINICAL HISTORY: Elevated lactic acid. COMPARISON: None. FINDINGS: Lungs bases: Clear. Liver: Mild hepatic steatosis. No focal hepatic lesion. Biliary system: Unremarkable gallbladder. No biliary dilatation. Pancreas: Normal. Spleen: Normal. Kidneys: Symmetric enhancement and normal contour. Nonspecific parenchymal calcification on the left. No stones or hydronephrosis. Adrenal glands: Normal. Urinary bladder: unremarkable. Pelvic organs: Normal prostate. Bowel: Normal caliber. No wall thickening or edema. Normal appendix. Peritoneum: No free air or ascites. Lymph nodes: No adenopathy. Page 1 of 2 [place] [address] PHONE: [phone] FAX: [phone] Name .................. : KATHLEEN Le Acct Number.................. : [id number] ROOM. ................. : 109-1 Number ................... : [id number] Stay type ............. : I/P Discharge Date......... ... : Admit Date ......... : 01/30/21 Admit Phys .................... : EDU RENTERIA Date of ....... : 1965 Family Phys ................... : NON STAFF Phone .................. : [phone] Age ................................ : 55 Film# .................. .:[id number] Sex ................................. : M Unsigned transcriptions are preliminary reports and do not represent a medical or legal document CT ABD & PELVIS W/ IV ONLY [id number] COMPLETE:01/30/21 17:42 RLB 7208 Reason(s): elevated lactic acid Vessels: Normal inferior vena cava and abdominal aorta. Bones: No acute or suspicious osseous abnormality. IMPRESSION: 1. No acute findings to account for this patient's elevated lactic acid. 2. Mild hepatic steatosis. While performing the above CT examination, radiation dose reduction was accomplished utilizing automated exposure control, adjusting of the mA and kV based on the patient's body size and/or the use of imperative reconstructive techniques. CT dose: 864.3 mGycm Contrast agent in mL: 75 Isovue 370 Method of administration: Intravenous Electronically Reviewed and Signed By George Morgan MD , 02/02/21 11:51, APM Transcribe Initials: DZ , Transcribe Date: 01/31/21 01:40, Dictation Date: Copy for: 710 [facility] REC DISCHARGED Page 2 of 2 Name Value Range Interpretation Code Description Data Daisy rce(s) Supporting Document(s) ID Date Data Source [id number] 02/02/2021 10:29:00 AM EDT [facility] [address] [place] [address] PHONE: [phone] FAX: [phone] Name .................. : WANG ENID Le Acct Number.................. : [id number] ROOM. ................. : 109-1 MR Number ................... : [id number] Stay type ............. : I/P Discharge Date......... ... : Admit Date ......... : 01/30/21 Admit Phys .................... : EDU RENTERIA Date of ....... : 1965 Family Phys ................... : NON STAFF Phone .................. : [phone] Age ................................ : 55 Film# .................. .:[id number] Sex ................................. : M Unsigned transcriptions are preliminary reports and do not represent a medical or legal document CHEST PORTABLE [id number] COMPLETE:01/30/21 18:27 [place] 7209 Reason(s): elevated lactic acid PORTABLE CHEST X-RAY: INDICATION: Elevated lactic acid. COMPARISON: 11/11/20 FINDINGS: Portable chest at 17:15 hours submitted for evaluation. Stable scarring left upper lung. No acute infiltrate. No pleural effusion. The cardiomediastinal silhouette is within normal limits. The osseous structures are unremarkable. IMPRESSION: No acute cardiopulmonary disease. Stable scarring left upper lung. Electronically Reviewed and Signed By Bjorn Aguilar DO , 02/02/21 10:29, YANIRA Transcribe Initials: KORTNEY , Transcribe Date: 01/31/21 09:29, Dictation Date: Copy for: [address] [place] [address] REC DISCHARGED Page 1 of 1 Name Value Range Interpretation Code Description Data Daisy rce(s) Supporting Document(s) ID Date Data Source [id number] 02/02/2021 09:53:00 AM EDT [facility] [address] [place] [address] PHONE: [phone] FAX: [phone] Name .................. : KATHLEEN Le Acct Number.................. : [id number] ROOM. ................. : 109-1 MR Number ................... : [id number] Stay type ............. : I/P Discharge Date......... ... : Admit Date ......... : 01/30/21 Admit Phys .................... : EDU RENTERIA Date of ....... : 1965 Family Phys ................... : NON STAFF Phone .................. : [phone] Age ................................ : 55 Film# .................. .:[id number] Sex ................................. : M Unsigned transcriptions are preliminary reports and do not represent a medical or legal document RENAL LIMITED [id number] COMPLETE:01/31/21 08:49 KNB 7230 (PROCEDURE REASON :MASS LIMITED RENAL ULTRASOUND: CLINICAL HISTORY: Possible renal mass. COMPARISON: Examination correlated with the CT scan of 01/30/21. FINDINGS: The right kidney measures 10.7 x 5.6 cm. The left kidney measures 9.8 x 5.2 cm. There are no signs of any definitive renal masses seen. Cortical echotexture is within normal limits, but there is some cortical thinning noted. No hydronephrosis identified. No signs of any renal calculi identified. The bladder shows no definitive abnormalities. Previously noted small hyperdense region in the anterior border of the left kidney is not identifiable as an ab normality on this ultrasound. IMPRESSION: Hyperdense region in the anterior border of the left kidney which may represent some calcification is not seen on this examination. No definitive signs of any renal masses or hydronephrosis. Electronically Reviewed and Signed By JUAN MIGUEL PALACIOS MD , 02/02/21 09:53, Asya Transcribe Initials: KORTNEY , Transcribe Date: 01/31/21 09:19, Dictation Date: Copy for: 710 [facility] REC DISCHARGED Page 1 of 1 Name Value Range Interpretation Code Description Data Daisy rce(s) Supporting Document(s) ID Date Data Source [id number] 02/02/2021 09:19:00 [place] [address] RESPIRATORY CARE REPORT ==== ---------NAME------- NUMBER SEX AGE ADMIT DISC. XRAY# F/C LINO Le [id number] M 55 01/30/21 01/31/21 [id number] X6 I/P DATE OF : 1965 M/R# [id number] #: [id number] 109-1 LOCATION: [place] [id number] COMP LETE:01/31/21 00:29 T [id number] PHYSICIAN: EDU BARBOUR SAVANNAH Name Value Range Interpretation Code Description Data Daisy rce(s) Supporting Document(s) ID Date Data Source [id number] 01/31/2021 08:41:00 AM EDT [facility] Name Value Range Interpretation Code Description Data Daisy rce(s) Supporting Document(s) Ammonia [Mass/volume] in Plasma 52.0 UG/DL 27.2 - 102 [facility] ID Date Data Source [id number] 01/31/2021 08:37:00 AM EDT [facility] Name Value Range Interpretation Code Description Data Daisy rce(s) Supporting Document(s) Ethanol [Moles/volume] in Blood <10.0 MG/DL [facility] ALCOHOL % 0.01 % 0.00 - 0.01 [facility] ital *FOR MEDICAL PURPOSES ONLY * ID Date Data Source [id number] 01/31/2021 08:06:00 AM EDT [facility] Name Value Range Interpretation Code Description Data Daisy rce(s) Supporting Document(s) Thyrotropin [Units/volume] in Serum or Plasma by Detec tion limit <= 0.05 mIU/L 5.69 uIU/mL 0.47 - 5.01 H [facility] ID Date Data Source [id number] 01/31/2021 08:06:00 AM EDT [facility] Name Value Range Interpretation Code Description Data Daisy rce(s) Supporting Document(s) COMPREHENSIVE METABOLIC PANEL [facility] COMPREHENSIVE METABOLIC PANEL Sodium [Moles/volume] in Serum or Plasma 136 mEq/L 134 - 153 [facility] Potassium [Moles/volume] in Serum or Plasma 3.8 mEq/L 3.6 - 5.0 [facility] Chloride [Moles/volume] in Serum or Plasma 107 mEq/L 98 - 107 [facility] Carbon dioxide, total [Moles/volume] in Serum or Plasma 23 MEQ/L 22 - 30 [facility] Glucose [Mass/volume] in Serum or Plasma 93 MG/DL 70 - 99 [facility] BUN 8 MG/DL 7 - [facility] Creatinine [Mass/volume] in Serum or Plasma 0.6 MG/DL 0.7 - 1.5 L [facility] BUN/CREAT 13 8 - 27 [facility] al Protein [Mass/volume] in Serum or Plasma 4.5 G/DL 6.3 - 8.2 L [facility] Albumin [Mass/volume] in Serum or Plasma 2.8 G/DL 3.9 - 5.0 L [facility] Globulin [Mass/volume] in Serum by calculation 1.7 GM/DL 2.4 - 3.2 L [facility] A/G RATIO 1.6 0.8 - 2.0 [facility] Calcium [Mass/volume] in Serum or Plasma 8.0 MG/DL 8.4 - 10.2 L [facility] Bilirubin.total [Mass/volume] in Serum or Plasma 0.9 MG/DL 0.2 - 1.3 [facility] Alkaline phosphatase [Enzymatic activity/volume] in Serum or Plasma 64 U/L 38 - 126 [facility] Aspartate aminotransferase [Enzymatic activity/volume] in Serum or Plasma 19 U/L 5 - 40 [facility] Alanine aminotransferase [Enzymatic activity/volume] in Seru m or Plasma 14 U/L 7 - 56 [facility] Anion gap 3 in Serum or Plasma 6.0 mmol/L 8.0 - 16.0 L [facility] AGE 55 yrs [facility] al NON-AA GFR >60 mL/min [facility] ital AFR AMER GFR >60 mL/min [facility] Ho spital Male GFR In terprentation 20-49 yrs >60 mL/min Normal 50-59 yrs >56 mL/min Normal 60-69 yrs >49 mL/min Normal 70-79yrs >42 mL/min Normal 80 and above >35 mL/min Normal Female GFR Interpretation 20-39 yrs >60 mL/min Normal 40-49 yrs >58 mL/min Normal 50-59 yrs >51 mL/min Normal 60-69 yrs >45 mL/min Normal 70-79 yrs >39 mL/min Normal 80 and above >32 mL/min Normal ID Date Data Source [id number] 01/31/2021 08:06:00 AM EDT [facility] Name Value Range Interpretation Code Description Data Daisy rce(s) Supporting Document(s) Magnesium [Mass/volume] in Serum or Plasma 1.7 MG/DL 1.7 - 2.2 [facility] ID Date Data Source [id number] 01/31/2021 07:55:00 AM EDT [facility] Name Value Range Interpretation Code Description Data Daisy rce(s) Supporting Document(s) CBC W/AUTOMATED DIFF [facility] COMPLETE BLOOD COUNT Leukocytes [#/volume] in Blood by Automated count 6.9 10^3/uL 4.2 - 1 1.0 [facility] Erythrocytes [#/volume] in Blood by Automated count 2.51 10^6/uL 4. 50 - 6.30 L [facility] Hemoglobin [Mass/volume] in Blood 8.2 g/dL 14.0 - 16.0 L [facility] Hematocrit [Volume Fraction] of Blood by Automated count 25.2 % 4 1.0 - 51.0 L [facility] Erythrocyte mean corpuscular volume [Entitic volume] b y Automated count 100.4 fL 80.0 - 94.0 H [facility] Erythrocyte mean corpuscular hemoglobin [Entitic mass] by Automated count 32.7 pg 27.0 - 34.0 [facility] Erythrocyte mean corpuscular hemoglobin concentration [Mass/volume] by Automated count 32.5 g/dL 31.0 - 36.0 [facility] Erythrocyte distribution width [Ratio] by Automated count 18.0 % 11.5 - 14.8 H [facility] Platelets [#/volume] in Blood by Automated count 285 10^3/uL 150 - 45 0 [facility] Platelet mean volume [Entitic volume] in Blood by Automated count 10.1 fL 7.4 - 10.4 [facility] Neutrophils/100 leukocytes in Blood by Automated count 69.8 % 37. 0 - 80.0 [facility] Lymphocytes/100 leukocytes in Blood by Manual count 10.1 % 25.0 - 40.0 L [facility] Monocytes/100 leukocytes in Blood by Automated count 14.4 % 3.0 - 8.0 H [facility] Eosinophils/100 leukocytes in Blood by Automated count 4.1 % 0.0 - 7.0 [facility] Basophils/100 leukocytes in Blood by Automated count 1.0 % 0.0 - 2.0 [facility] %IG 0.6 % 0.0 - 0.[address] [facility] %NRBC 1.7 % 0.0 - 0.0 H [facility] al Neutrophils [#/volume] in Blood by Automated count 4.79 10^3/uL 2.00 - 6.90 [facility] Lymphocytes [#/volume] in Blood by Automated count 0.69 10^3/uL 0.60 - 3.40 [facility] Monocytes [#/volume] in Blood by Automated count 0.99 10^3/uL 0.00 - 0.90 H [facility] Eosinophils [#/volume] in Blood by Automated count 0.28 10^3/uL 0.00 - 0.70 [facility] Basophils [#/volume] in Blood by Automated count 0.07 10^3/uL 0.00 - 0.20 [facility] #IG 0.04 10^3/uL 0.00 - 0.10 [facility] ospital #NRBC 0.12 10^3/uL 0.00 - 0.00 H [facility] ospital MANUAL DIFF NOT INDICATED [facility] RBC MORPH NOT INDICATED [facility] spital ID Date Data Source [id number] 01/31/2021 07:52:00 AM EDT [facility] Name Value Range Interpretation Code Description Data Daisy rce(s) Supporting Document(s) Prothrombin time (PT) 14.1 SECONDS 11.0 - 15.5 [facility] INR in Platelet poor plasma by Coagulation assay 1.04 0.93 - 1. 23 [facility] \\BLDo\\INR INTERPRETATION\\BLDx\\ Therapeutic range for Coumadin and related oral anticoagulants. - International Normalized Ratio (INR): 2.0 - 3.0 for Venous Thrombosis, Pulmonary Embolus, Tissue heart valves, Acute IA, Atrial Fibrillation, Valvular heart disease and recurrent Systemic Embolism. -International Normalized Ratio (INR): 2.5 - 3.5 for Mechanical Prosthetic valve. ID Date Data Source [id number] 01/31/2021 07:51:00 AM EDT [facility] Name Value Range Interpretation Code Description Data Daisy rce(s) Supporting Document(s) Lactate [Moles/volume] in Serum or Plasma 1.1 MMOL/L 0.2 - 2.2 [facility] ID Date Data Source [id number] 01/30/2021 01:50:00 PM EDT [facility] 1 OrderSheet [facility] Emergency Department [address] [place] [address] Phone #: ext- [phone] 01/30/2021 13:49 Patient: ENID WANG Sex: M : 1965 Age: 55yWEIGHT:54.4 kg (S) HEIGHT:63 inches (S) BMI:21.3ALLERGIES: Abacavir, Bactrim, Bee stings, Penicillins, Sulfa AntibioticsDIAGNOSIS: Problem, Anemia, Insect bite - woundLAB ORDERSOrder Description Priority Entered Acknowledged InitialedCBC w Diff STAT 14:26 01/30/2021 14:27 [place]; Maryann RNCMP STAT 14:26 01/30/2021 14:27 [place]; Maryann RNType and Screen STAT 14:26 01/30/2021 14:27 [place]; Maryann RNPT/PTT STAT 14:33 01/30/2021 14:38 [place]; Maryann KYLEOccult Blood Stool 14:33 01/30/2021 14:38 TerryDiagnostic 1 slide [place]; Maryann KLYELactic Acid STAT 14:33 01/30/2021 14:38 H[place]ctor [place]; Maryann KYLEUrinalysis (Clean STAT 16:45 01/30/2021 18:57 TerryCatch) [place]; Maryann KYLECOVID-19 CAH (Not STAT 16:45 01/30/2021 17:21 TerrySymptomatic as [place]; Maryann RNDefined by CDC)(01/30/21) (FirstTest) (Hospitalized)(Not ) (NotResident inCongregate CareSetting) (NotEmployed inHealthcare Setting)Blood Bank -see STAT 16:46 01/30/2021 17:21 Terrypaper order [place]; Maryann RNLactic Acid STAT 17:58 01/30/2021 18:06 Héctor [place]; Maryann RNLactic Acid STAT 18:31 01/30/2021 18:40 Bayron England R.N.; Maryann RN Verbal order per; [place] 2 OrderSheet [facility] Emergency Department [address] [place] [address] Phone #: ext- [phone] 01/30/2021 13:49 Patient: ENID WANG Sex: M : 1965 Age: 55yBlood Culture STAT 19:53 01/30/2021 20:26 Bisha,q10m X2 (Sched [place]; Vocaqrm33:53 01/30/2021)Blood Culture STAT 19:53 01/30/2021 20:26 Bisha,q10 m X2 (Sched [place]; Ykhzaqc09:03 01/30/2021)DIAGNOSTIC STUDY ORDERSOrder Description Priority Entered Acknowledged InitialedCT Abd PEL W/ IV STAT 16:39 01/30/2021 17:21 TerryContrast Only [place]; Maryann RN(Oxygen?(No))(IV?(Yes)) Reason for Study: elevated lactic acidChest Portable 1 STAT 16:39 01/30/2021 17:21 RosayVpaulino [place]; Maryann RN(Oxygen?(No)) Reason for Study: elevated lactic acidMEDICATION/IV/DRIP/FLUID ORDERSOrder Description Priority Entered Acknowledged InitialedNS IV : Bolus 500 16:01 01/30/2021 16:21 TerrymL, then 100 mL/hr [place]; Maryann RN(NOW x1)NS IV 1000 mL 17:58 01/30/2021 18:38 TerryBolus: : Bolus 1000 [place]; Maryann RNmL (X1)Cefepime (1 g/50 19:59 01/30/2021 20:19 Eh,mL) IVPB 1000 mg [place] Rader(in 50 mL D5W,NOW x1) Reason for ordering with alerts: Clinical consideration given -- 19:59 01/30/2021 [place] Barbour PANS IV 1000 mL 20:37 01/30/2021 21:00 Bisha,Bolus: : Bolus 1000 [place]; PrasanthmL (X1)GENERAL ORDERSOrder Description Priority Entered Acknowledged InitialedCardiac Monitor 14:33 01/30/2021 14:34 [place] ED(continuous) [place]; [employer] Nancy MANDA [id number] Oximetry 14:33 01/30/2021 14:34 [place] ED 3 OrderSheet [facility] Emergency Department [address] [place] [address] Phone #: ext- [phone] 01/30/2021 13:49 Patient: ENID WANG Sex: M : 1965 Age: 55yContinuous [place]; [employer] [id number] Pressure 14:33 01/30/2021 14:34 [place] EDMonitor [place]; [employer] [id number] 14:33 01/30/2021 14:34 María ED [place]; [employer] [id number] 14:35 01/30/2021 14:38 [place]; Maryann RNConsult - 17:11 01/30/2021 17:21 HéctorHospitalist [place]; Maryann RN[Electronically signed by [place] Barbour (21:49 01/30/2021)][Electronically signed by Prasanth Stauffer (23:35 01/30/2021)][Electronically locked by Prasanth Stauffer (23:35 01/30/2021)] Name Value Range Interpretation Code Description Data Daisy rce(s) Supporting Document(s) ID Date Data Source [id number] 01/30/2021 01:50:00 PM EDT [facility] 1 Medication Reconciliation Report [facility] Emergency Department [address] [place] [address] Phone #: [phone] 01/30/2021 13:49 Patient: ENID WANG Sex: M : 1965 Age: 55yWeight: 54.4 kgHeight/Length: 63 in.BMI: 21.3ALLERGIES: Abacavir, Bactrim, Bee stings, Penicillins, Sulfa AntibioticsThe patient's Home Medications are listed below:THE FOLLOWING MEDICATIONS NEED TO BE RECONCILED: Albuterol Sulfate HFA Inhalation, prn Aspirin Oral (81 mg), daily Biktarvy Oral (50-200-25 mg), daily Ferrous Sulfate Oral (325 (65 Fe) mg), daily Protonix Oral 40 mg, daily Sucralfate Oral (1 gm), 4x a dayThe source(s) of the original Home Medication information:Not obtained.The following Medications were given to the patient in the Emergency Department:NS [IV] IV Fluids bolus 500 mL over 1 hour(s), then 100 mL/hr, administered: 16:15 NS [IV] IV Fluids bolus 1000 mL over 1 hour(s), administered: 17:38 01/30/2021efepime [IVPB] IVPB bolus 0, then 1 gm 100 mL/hr, administered: 20:19 01/30/2021odium Chloride [IV] IV Fluids bolus 1000 mL over 40 minute(s), administered: 21:00 01/30/2021The following Medications were prescribed to the patient:None. Name Value Range Interpretation Code Description Data Daisy rce(s) Supporting Document(s) ID Date Data Source [id number] 01/30/2021 01:50:00 PM EDT [facility] 1 Medication Administration Record [facility] Emergency Department [address] [place] [address] Phone #: ext- [phone] 01/30/2021 13:49 Patient: ENID WANG Sex: M : 1965 Age: 55yWeight: 54.4 kgHeight/Length: 63 inBMI: 21.2ALLERGIES: Abacavir, Bactrim, Bee stings, Penicillins, Sulfa Antibiotics Date/Time Medication Administered Medication OrderedStart NS [IV] NS IV : Bolus 500 mL, then 29904:15 01/30/2021 Dose: IV Fluids mL/hr (NOW x1)Héctor Wolf RN Rate: 100 mL/hr over 5 hour(s)---- Bolus: 500 mL over 1 hour(s)Stop Dispensed: 1000 mL bag17:35 01/30/2021 Site: #1 right wristTerry MAR Wolfta NS [IV] NS IV 1000 mL Bolus: : Bolus 537440:38 01/30/2021 Dose: IV Fluids mL (X1)Héctor Wolf RN Bolus: 1000 mL over 1 hour(s)---- Dispensed: 1000 mL bagStop Site: #1 right wrist20:19 1BPrasanth baird Start CEFEPIME [IVPB] Cefepime (1 g/50 mL) IVPB 232506:19 01/30/2021 Dose: 1 gm IVPB mg (in 50 mL D5W, NOW x1)Prasanth Stauffer, Rate: 100 mL/hr over 30 minute(s)---- Dispensed: 50 mL bagStop Site: #1 right wrist21:23 Prasanth Law Start SODIUM CHLORIDE [IV] NS IV 1000 mL Bolus: : Bolus 454315:00 01/30/2021 Dose: IV Fluids mL (X1)Prasanth Stauffer, Bolus: 1000 mL over 40 minute(s)---- Dispensed: 1000 mL bagStop Site: #2 left :41 01/30/2021Prasanth baird, Name Value Range Interpretation Code Description Data Daisy rce(s) Supporting Document(s) ID Date Data Source [id number] 01/30/2021 01:50:00 PM EDT [facility] 1 General Instructions [facility] Emergency Department [address] [place] [address] Phone #: ext- [phone] 01/30/2021 13:49 Patient: ENID WANG Sex: M : 1965 Age: 55ySevere chronic anemia.Insect bite. (bed bug infestation).Abnormal tests; (elevated lactic acid).(? sepsis, elevated lactate, tachycardia).(Electronically signed by MIKAELA Conklin 01/30/2021 21:49) Name Value Range Interpretation Code Description Data Daisy rce(s) Supporting Document(s) ID Date Data Source [id number] 01/30/2021 01:50:00 PM EDT [facility] 1 Clinical Report - Nurses [facility] Emergency Department [address] [place] [address] Phone #: ext- [phone] 01/30/2021 13:49 Patient: ENID WANG Sex: M : 1965 Age: 55yTRIAGEArrived by EMS, and from the physician's office. Historian: patient. ( [facility] [place] [facility] andsent to ED for blood transfusion from multiple bug bites, pt stating walking well no weakness, has hx bedbugs for many years).Triage time: 13:47 01/30/2021. Acuity: LEVEL 3.Chief Complaint: (bed bugs).14:07 01/30/21.No fever, weakness, cough, difficulty breathing or skin rash. 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 SEPSIS SCREEN NEGATIVE. No suspected or confirmedsigns of infection present. (14:06 01/30/2021). --14:07 01/30/21 Héctor Wolf RN14:02 01/30/21. BP: 140/82. MAP: 101. HR: 84. RR: 15. O2 saturation: 99% on room air. Temp: 98.2 F(temporal). Pain level now: 0/10. --14:07 01/30/21 Héctor Wolf RN.Weight: 54.4 kg stated. Height/Length: 63 inches Per Patient. BMI: 21.2. --14:01 01/30/21 Héctor Wolf RN.MedicationsAlbuterol Sulfate HFA Inhalation, as needed. Aspirin Oral (Tablet Chewable 81 mg), daily. Biktarvy Oral (Tablet 50-200-25 mg), daily. Ferrous Sulfate Oral (Tablet 325 (65 Fe) mg), daily. Protonix Oral 40 mg, daily. Sucralfate Oral (Tablet 1 gm), 4x a day. --14:04 01/30/21 Héctor Wolf RN.AllergiesAbacavir.Bactrim.Bee stings.Penicillins.Sulfa Antibiotics. --14:04 01/30/21 Héctor Wolf RN.ADDITIO NAL SURGERIES:Teeth. --14:04 01/30/21 Héctor Wolf RN. 2 Clinical Report - Nurses [facility] Emergency Department [address] [place] [address], [place] [address] Phone #: ext- [phone] 01/30/2021 13:49 [id number] Sex[facility] M : 1965 Age: 55y History 14:01/30/21. PAST MEDICAL HX: Hypertension. Heart disease. Lung disease. SOCIAL HX: Smoker- current status unknown (11/08 ppd). Alcohol use. (daily). Drug use: marijuana. He was offered HIV testing but declined. He was offered hepatitis C testing but declined (- diagnosed). He has not traveled outside the [place] Infectious disease exposure: No infectious disease exposure. SELF HARM ASSESSMENT: Self harm assessment was performed. The patient answered "no" to the question(s) "Have you recently felt down, depressed, or hopeless?", "Do you have thoughts of harming or killing yourself?", "Do you have a plan for harming or killing yourself?", "Have you recently had thoughts about harming or killing others?", "Do you have any dangerous items in your possession?", "Have you noticed less interest or pleasure in doing things?", "Are you here because you tried to hurt yourself?" and "Have you ever tried to hurt yourself before today?". ABUSE ASSESSMENT: Abuse history: reports abuse. (no). Abuse assessment. No suspicion of abuse. NUTRITIONAL RISK ASSESSMENT: The nutritional risk assessment revealed no deficiencies. FUNCTIONAL ASSESSMENT: Functional assessment: no impairments noted. LEARNING NEEDS ASSESSMENT: The learning needs assessment revealed no barriers. FALL RISK ASSESSMENT: Fall risk assessment completed. No risk factors identified. SKIN INTEGRITY ASSESSMENT: Skin integrity risk assessment completed. No skin integrity risk identified. --14:07 01/30/21 Héctor Wolf RN. Interventions 14:01/30/21. Identification band on patient. To room. --14:07 01/30/21 Héctor Wolf RN Allergy band on patient. --14:01/30/21 Héctor Wolf RN.PHYSICAL ASSESSMENTTo room via stretcher.GENERAL / NEURO / PSYCH: Alert. Oriented X 4.HEENT: No facial asymmetry noted. Mucous membranes are pink.RESPIRATORY: Decreased breath sounds bilaterally.CVS: Normal sinus rhythm noted. Cardiac rhythm: normal sinus rhythm; (1356).GI / : Abdomen soft and nontender and normal bowel sounds.SKIN: ( multiple bites to entire body from bed bugs). --14:08 01/30/21 Héctor Wolf RN. 3 Clinical Report - Nurses [facility] Emergency Department [address] [place] [address] Phone #: ext- [phone] 01/30/2021 13:49 Patient: ENID WANG Sex: M : 1965 Age: 55yNURSING PROGRESS NOTES14:01/30/21. Cardiac rhythm: normal sinus rhythm; (1459). alarm security or surveillance monitor, NIBP monitor and pulseoximeter placed on patient; residential monitor- Lead II; monitor alarms on; monitor strip added to paper chart.EKG time: (13:56 01/30/2021). EKG was performed by a tech. nsr. Mikaela damon. Head of bedelevated 45 degrees. Two patient identifiers checked. Call light placed in reach. Bed placed in lowestposition. Brakes of bed on. Patient ready for evaluation- chart flagged. --14:09 01/30/21 Héctor Wolf RN Contact isolation precautions initiated. Mask, gowns and gloves in use. (5692). --14:14 01/30/21 Héctor Wolf RN Checked patient name and birthdate: patient confirmed. Blood samples drawn by tech. (5870). --14:42 01/30/21 Héctor Wolf RN 14:59 01/30/21. BP: 139/82. MAP: 101. HR: 85. RR: 12. O2 saturation: 99%. --14:59 01/30/21 [facility] TechNancy ER Tech1 ( 1500 lunch tray offered). --15:04 01/30/21 Héctor Wolf RN 15:44 01/30/2021 Site #1 started via IV in the right wrist with an 20g angiocath; one attempt. --15:44 01/30/21 Héctor Wolf RN Warming measures: blanket applied (1540 x 2). --15:45 01/30/21 Héctor Wolf RN Critical value relayed by amelia. Critical value received by bayron. Lactate level: 4.1. Critical value read back. Verified lab r esult. PA notifed of critical value (Channing). --16:00 01/30/21 Bayron Evans R.N. 16:03 01/30/21. BP: 136/76. MAP: 96. HR: 99. RR: 21. O2 saturation: 100%. --16:03 01/30/21 [place] [employer], [facility] Tech1 15:23 01/30/21. Critical value relayed by Amelia in the Lab (15:23 01/30/2021). Critical value received by Tram Lawson RN (15:23 01/30/2021). Hgb: 6.4. Critical value read back. Verified lab result and patient ID. Charge nurse and PA notifed of critical value. Orders were received. --16:09 01/30/21 Tram Lawson R.N. 16:15 01/30/2021 Started bag #1 1000 mL IV Fluids NS; bolus of 500 mL over 1 hour(s) then at 100 mL/hr over 5 hour(s) via site #1 via IV pump. Allergies verified and confirmed 5 rights. IV patency established. IV site checked: no pain, redness, or swelling. IV flushed thoroughly pre- and post-medication administration. Information reviewed with patient. --16:21 01/30/21 Héctor Wolf RN 16:58 01/30/21. BP: 144/87. MAP: 106. HR: 110. RR: 19. O2 saturation: 99%. --16:59 01/30/21 María [employer], Nancy, Tech1 Portable chest x-ray completed. Shown to the PA (6135). 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 (1868). --17:22 01/30/21 DANIELA uBrrellatiapril ID band checked for patient name and birthdate: patient confirmed. COVID-19 specimen obtainedby RN via nasopharyngeal swab. Labeled in the presence of the patient and sent to lab (2013). --17:353 éHctor Wolf RN17:35 01/30/2021 IV Fluids NS via IV site #1 Discontinued: bag #1 STOPPED. Total amount infused: 450mL. IV patency established. IV site checked: no pain, redness, or swelling. IV flushed thoroughly. --18:403 Héctor Wolf RN17:38 01/30/2021 Started bag #1 1000 mL IV Fluids NS; bolus of 1000 mL over 1 hour(s) via site #1 via IVpump. Allergies verified and confirmed 5 rights. IV patency established. IV site checked: no pain, redness,or swelling. IV flushed thoroughly pre- and post- medication administration. Information reviewed withpatient. --18:39 01/30/21 Héctor Wolf RN17:42 01/30/2021 IV Fluids NS via IV site #1 Rate Changed: bag #1 increased to 1000 mL/hr via IV pump.IV patency established. IV site checked: no pain, redness, or swelling. IV flushed thoroughly. (Verbal orderper MIKAELA Ramos). --17:42 01/30/21 Héctor Wolf RN Correction. --18:40 01/30/21 DANIELA Burrellatiapril returned from CT by wheelchair with mask and radiology equipment servicer. (0976). --17:42 01/30/21 SAROJ Eden17:59 01/30/21. BP: 128/105. MAP: 112. HR: 109. RR: 16. O2 saturation: 100%. --17:59 01/30/21 Nancy Neil [id number] value relayed by raissa. Critical value received by bayron. Lactate level: 5.1. Critical value readback. PA notifed of critical value (channing). --18:41 01/30/21 Bayron Evans R.N.18:44 01/30/21. BP: 120/79. MAP: 92. HR: 107. RR: 18. O2 saturation: 97%. Temp: 98.5 F (oral). Painlevel now: 0/10. --18:54 01/30/21 Héctor Wolf RN( 1830 first unit PRBC startyed). --18:54 01/30/21 Héctor Wolf RN18:30 01/30/21. BP: 113/86. MAP: 95. HR: 100. RR: 18. O2 saturation: 98%. Temp: 98.3 F (oral). Painlevel now: 0/10. --18:55 01/30/21 Héctor Wolf RNIn/out catheterization placed in ED. Return of 200 mL jam-colored urine. He tolerated procedure well(1855). Not attached to bedside drainage bag positioned below the bladder, urimeter or leg bag. --19: Héctor Wolf RN19:09 01/30/21. BP: 122/66. MAP: 84. HR: 108. RR: 21. O2 saturation: 100%. --19:09 01/30/21 Nancy Reddy ER Vjrw994:44 01/30/21. BP: 133/73. MAP: 93. HR: 106. RR: 21. O2 saturation: 97%. --19:44 01/30/21 [facility] 5 Clinical Report - Nurses [facility] Emergency Department [address] [place] [address] Phone #: ext- [phone] 01/30/2021 13:49 Patient: ENID WANG Sex: M : 1965 Age: 55yTech, Nancy, MANDA Ibyy430:56 01/30/21. BP: 128/71. MAP: 90. HR: 102. RR: 22. O2 saturation: 98%. --19:57 01/30/21 María Maxwell Nancy, [id number] of patient in place. The patient is resting quietly and has had no adverse reaction. ( Patientstated to this card writer hand that "[facility] Provider made aware.).RESPIRATORY: No respiratory distress. Breath sounds normal.CVS: Normal sinus rhythm noted.SKIN: Skin is warm and dry. Skin color within normal limits. --20:05 01/30/21 Prasanth Stauffer20:19 01/30/2021 Started 1 gm of Cefepime IVPB in bag #1 50 mL; at 100 mL/hr over 30 minute(s) via site#1. via IV pump. Allergies verified and confirmed 5 rights. IV patency established. IV site checked: no pain,redness, or swelling. IV flushed thoroughly pre- and post-medication administration. Information reviewedwith patient including reason for taking this medication, signs of allergic reaction and precautions.Verbalizes understanding. --20:19 01/30/21 Prasanth Stauffer20:19 01/30/2021 IV Fluids NS via IV site #1 Discontinued: bag #1 infused. Total amount infused: 1000 mL.IV patency established. IV site checked: no pain, redness, or swelling. IV flushed thoroughly. --20: Prasanth Stauffer20:59 01/30/2021 Site #2 started via IV in the left forearm with an 20g angiocath, with aseptic techniqueand good blood return; one attempt. Saline lock flushed with 10 mL saline. --20:59 01/30/21 Prasanth Stauffer21:00 01/30/2021 Started bag #1 1000 mL IV Fluids Sodium Chloride; bolus of 1000 mL over 40 minute(s)via site #2 via IV pump. Allergies verified and confirmed 5 rights. IV patency established. IV site checked:no pain, redness, or swelling. IV flushed thoroughly pre- and post-medication administration. Informationreviewed with patient including reason for taking this medication, signs of allergic reaction and precautions.Verbalizes understanding. --21:00 01/30/21 Prasanth Stauffer21:23 01/30/2021 Cefepime IVPB via IV site #1 Discontinued: bag #1 infused. Total amount infused: 50mL. IV patency established. IV site checked: no pain, redness, or swelling. IV flushed thoroughly. --21: Prasanth Stauffer21:41 01/30/2021 IV Fluids Sodium Chloride via IV site #2 Discontinued: bag #3 infused. Total amountinfused: 1000 mL. IV patency established. IV site checked: no pain, redness, or swelling. IV flushedthoroughly. --21:41 01/30/21 Prasanth Stauffer.Blood Products: 18:44 01/30/21. Discussed risks, benefits and alternatives with patient. Transfusioninformation reviewed including risks, benefits and alternatives and signs of allergic reaction. Consentsigned. MTP initiated (18:30 01/30/2021): blood bank notified. robot technician to ED. Blood arrived. ID bandchecked. Blood product verified to order and patient's blood band by 2 staff members. Blood bank # [id number]. Blood type O pos. BLOOD PRODUCT STARTED: #1 PRBC via IV pump. See 6 Clinical Report - Nurses [facility] Emergency Department [address] [place] [address] Phone #: ext- [phone] 01/30/2021 13:49 Patient: ENID WANG Sex: M : 1965 Age: 55y transfusion record. Rate (100 mL/hr). --18:53 01/30/21 Héctor Wolf RN.DISPOSITION / DISCHARGE 23:01/30/21. Departure time: 23:01/30/2021. Cardiac rhythm: sinus tachycardia. Condition at departure: stable. Admitted to the Acute Inpatient Unit, Monitored. Report was given to a nurse via a phone call. Report included information regarding patient's care, treatment, allergies and condition, vital signs and critical labs. Report included treatment information regarding medications; type and amount of IV fluids; blood products type. All questions were answered. Report was acknowledged. (SAROJ Degroot). Bed obtained and ready (109). --23:21 01/30/21 Prasanth Stauffer 23:18 01/30/21. BP: 147/100 taken on the left arm, via an automated monitor, while lying. MAP: 115. HR: 111 (regular, tachycardic and strong). RR: 16 (regular, unlabored and normal). O2 saturation: 100% on room air. Temp: 98.7 F (oral). Pain level now: 0/10. --23:21 01/30/21 Prasanth Stauffer.Locked/Released at 01/30/2021 23:35 by Prasanth Stauffer Name Value Range Interpretation Code Description Data Daisy rce(s) Supporting Document(s) ID Date Data Source [id number] 01/30/2021 01:50:00 PM EDT [facility] 1 Clinical Report - Physicians/Mid Levels [facility] Emergency Department [address] [place] [address] Phone #: ext- [phone] 01/30/2021 13:49 Patient: ENID WANG Sex: M : 1965 Age: 55y Time Seen: 14:14 01/30/2021. Arrived- By ambulance. Historian- patient and EMS personnel. Disposition decision: 21:15 01/30/2021.HISTORY OF PRESENT ILLNESS Chief Complaint: bed bugs and anemia. ( Sent to ED by PCM via EMS due to concern of low Hand need of ? blood transfusion. Hx of chronic bed bug infestation. Pt states his sister concerned due to inability of lab to draw blood on him that he may need transfusion, states he feels fine and no com plaints. Mild SOB with hx of COPD which he states is normal for him, aware of chronic hx of bed bugs and house is sprayed every 2 days currently. No chest pain, fever, weakness, difficulty walking or increased fatigue.). This started several months ago. At its maximum, severity described as 0 / 10. When seen in the E.D., severity described as 0 / 10. No loss of appetite, weight loss, headache, visual disturbance or fatigue. No muscle aches or weakness. Denies sleep problem. No decreased urine output. Similar symptoms previously. Patient has had similar symptoms several times. Recent medical care: Not recently seen/assessed.REVIEW OF SYSTEMSNo fever, sore throat, sinus drainage, nasal congestion or cough. No difficulty breathing, chest pain,abdominal pain, nausea or vomiting. No diarrhea, black stools, bloody stools, chills or difficulty withurination. No skin rash, back pain, calf pain, headache or blackouts. No double vision. No difficulty withambulation.PAST HISTORYSee nurses notes. Problems: Gastric ulcer. COPD - Chronic Obstructive Pulmonary Disease. GI Bleeding. Gastroesophageal Reflux Disease. Bed bugs. Alcohol Intoxication. Abnormal Test. Anemia. Alcoholism. Nephrolithiasis. Vertebral fractures. Peptic Ulcer Disease. Iron deficiency anemia. HIV Illness. 2 Clinical Report - Physicians/Mid Levels [facility] Emergency Department [address] [place] [address] Phone #: ext- [phone] 01/30/2021 13:49 Patient: ENID WANG Sex: M D OB: 1965 Age: 55y Hepatitis. Hypokalemia. Lung Disease. Heart Disease. Hypertension. Additional Surgeries: Teeth. Medications: Albuterol Sulfate HFA Inhalation, as needed. Aspirin Oral (Tablet Chewable 81 mg), daily. Biktarvy Oral (Tablet 50-200-25 mg), daily. Ferrous Sulfate Oral (Tablet 325 (65 Fe) mg), daily. Protonix Oral 40 mg, daily. Sucralfate Oral (Tablet 1 gm), 4x a day. Allergies: Abacavir. Bactrim. Bee stings. Penicillins. Sulfa Antibiotics.SOCIAL HISTORYSmoker- current status unknown. Alcohol use. Drug use: marijuana. No recent travel.ADDITIONAL NOTESThe nursing notes have been reviewed with agreement regarding the chief complaint, HPI, ROS, PMH andpatient medications and allergies.PHYSICAL EXAMVital Signs: 01/30/2021 14:02 BP: 140/82. MAP: 101. HR: 84. RR: 15. O2 saturation: 99% on room air.Temp: 98.2 F. Pain level now: 0/10. Have been reviewed as normal and appear to be correct. Bloodpressure normal. Mean arterial pressure- normal. Heart rate normal. Respiratory rate normal.Temperature normal. Oxygen saturation normal.Appearance: Alert. No acute distress.Eyes: Pupils equal, round and reactive to light. Eyes normal inspection.ENT: Ears normal. Nose normal. Pharynx normal.Neck: Normal inspection. Neck supple.CVS: Normal heart rate and rhythm. Heart sounds normal. Pulses normal.Respiratory: No respiratory distress. Painless inspiration. Breath sounds normal. Chest nontender.Abdomen: No visible injury. Soft and nontender. Bowel sounds normal. No organomegaly. No mass.Back: Normal inspection.Skin: Skin warm and dry. Normal skin color. Normal skin turgor. (multiple small erythematous and 3 Clinical Report - Physicians/Mid Levels [facility] Emergency Department [address] [place] [address] Phone #: ext- [phone] 01/30/2021 13:49 Patient: ENID WANG Sex: M : 1965 Age: 55y excoriated ovoid lesions to chest, arms, abd, back and legs c/w bed bug infestation.). Extremities: Extremities exhibit normal ROM. No lower extremity edema. Neuro: Oriented X 3. No motor deficit. No sensory deficit. Reflexes normal.LABS, X-RAYS, AND EKGEKG: EKG time: 14:35 01/30/2021. No acute process. No acute ischemia. Normal EKG. Rate: 82.Normal P waves. Normal SABINA. Normal QRS complex. Normal axis. Normal ST and T waves, QT andQTc. The study has been interpreted contemporaneously by me. The study has been independentlyviewed by me. The EKG appears to be a good tracing. I agree with and confirm the computer reading ofthe EKG. Interpretation time: 14:35 01/30/2021.Chest X-ray: No acute disease. (stable L upper lung scarring. No acute infiltrate.). Views: AP (portable).Technique: good. The X-rays were independently viewed by me and interpreted by the radiologist andcontemporaneously by me. Interpretation time: 17:49 01/30/2021.Abdominal CT: no acute findings. mild hepatic steatosis. Abdominal CT performed with IV contrast. Thestudy was independently viewed by me and interpreted by the radiologist and contemporaneously by me.Interpretation time: 17:59 01/30/2021.Laboratory Tests: Laboratory tests have been ordered, with results reviewed and considered in themedical decision making process. Crossmatch (Blood Bank): (DEB: 01/30/2021 21:10) ( MsgRcvd 01/30/2021 21:13) Final results Test Result Flag Units (Reference) CROSSMATCH \\MRHx\\\\16PI\\\\LM10\\\\TM00\\ \\BLDo\\\\UNDo\\COMPATABILITY TESTING:\\UNDx\\\\BLDx\\ \\UNDo\\PATIENT INFORMATION\\UNDx\\ ABO GROUP O RH TYPE POSITIVE AB SCREEN NEGATIVE { ABO/RH RE-ENTER O POSITIVE{ AB SCREEN RE-ENTER NEGATIVE \\UNDo\\DONOR INFORMATION\\UNDx\\ UNIT NUMBER _ARC# 01/30/21.SONYA.[id number] 0M EXPIRATION DATE _02-13-21__ 01/30/21.2111.SONYA.{ ABO/RH O POS{ XMATCH RESULT COMPATIBLE{ COMPONENT LRPC Lactic Acid: (DEB: 01/30/2021 18:31) ( MsgRcvd 01/30/2021 18:32) Canceled Lactic Acid: (DEB: 01/30/2021 18:15) ( MsgRcvd 01/30/2021 18:41) Final results Test Result Flag Units (Reference) LACTIC ACID 5.1 HH MMOL/L (0.2 - 2.2) VERIFIED BY REPEAT CALL/ READ BACK CALLED TO BAYRON BY: SONYA DATE/TIME 01-30-211838 COVID-19 CAH: (DEB: 01/30/2021 17:00) ( MsgRcvd 01/30/2021 17:34) Final results Test Result Flag Units (Reference) COVID- 19 NOT DETECTED COVID-19 REENTER NOT DETECTED { PROCEDURAL CONTROL VALID KIT LOT # _[id number] 01/30/21.1733.DW . KIT EXP DATE _96-96-50 4 Clinical Report - Physicians/Mid Levels [facility] Emergency Department [address] [place] [address] Phone #: ext- [phone] 01/30/2021 13:49 Patient: ENID WANG Sex: M : 1965 Age: 55y01/30/21.1733.DW . NORMAL RANGE IS NOT DETECTEDNEGATIVE RESULTS SHOULD BE TREATEDAS PRESUMPTIVE AND, IF INCONSISTENT WITHCLINICAL SIGNS AND SYMPTOMS OR NECESSARY FOR PATIENT MANAGEMENT, SHOULDBETESTED WITH DIFFERENT AUTHORIZED OR CLEARED MOLECULAR TESTS. NEGATIVE RESULTSDO NOT PRECLUDE [id number] AND SHOULD NOT BE USED THE SOLE BASISFOR PATIENT MANAGEMENT DECISIONS.Crossmatch (Blood Bank): (DEB: 01/30/2021 16:58) ( [facility] 01/30/2021 21:12) Final results Test Result Flag Units (Reference) CROSSMATCH \\MRHx\\\\16PI\\\\LM10\\\\TM00\\ \\BLDo\\\\UNDo\\COMPATABILITY TESTING:\\UNDx\\\\BLDx\\ \\UNDo\\PATIENTINFORMATION\\UNDx\\ ABO GROUP O RH TYPE POSITIVE AB SCREEN NEGATIVE { ABO/RH RE-ENTER O POSITIVE{ AB SCREEN RE- ENTER NEGATIVE \\UNDo\\DONORINFORMATION\\UNDx\\ UNIT NUMBER _ARC# 01/30/21.SONYA.[id number] EXPIRATION DATE _0[birth year]63[birth year]__43/26/21.SONYA.{ ABO/RH O POS{ XMATCH RESULT COMPATIBLE{ [facility] (DEB: 01/30/2021 16:46) ( [facility] 01/30/2021 16:58) CanceledUrinalysis: (DEB: 01/30/2021 19:00) ( [facility] 01/30/2021 19:23) Final results Test Result Flag Units (Reference) URINALYSIS URINALYSIS SOURCE R COLOR yellow (NORMAL: Yello CLARITY clear (NORMAL: Clear SPEC GRAVITY 1.010 (1.001 - 1.030 pH 5 (5 - 9) GLUCOSE NORM (NORMAL: Negat BILIRUBIN NEG (NORMAL: Negat KETONE NEG (NORMAL: Negat PROTEIN NEG (NORMAL: Negat NITRITE NEG (NORMAL: Negat BLOOD NEG (NORMAL: Negat LEUK EST NEG (NORMAL: Negat U ROBILINOGEN NOR (less than 1.0 MICROSCOPIC Not IndicateCOVID-19 CAH: (DEB: 01/30/2021 16:45) ( [facility] 01/30/2021 17:06) CanceledFirst test?: YEmployed in healthcare?: NSymptomatic as defined by CDC?: NHospitalized?: YCT Abd PEL W/ IV Contrast Only: (DEB: 01/30/2021 16:39) ( MsgRcvd 01/30/2021 17:42) In ProgressCT ABDReason(s): elevated lactic acidTRANSPORTATION: WC IV? IV?(Yes) O2? Oxygen?(No) Ro 5 Clinical Report - Physicians/Mid Levels [facility] Emergency Department [address] [place] [address] Phone #: ext- [phone] 01/30/2021 13:49 Patient: ENID WANG Sex: M : 1965 Age: 55yChest Portable 1 View: (DEB: 01/30/2021 16:39) ( MsgRcvd 01/30/2021 18:27) [facility]LEReason(s): elevated lactic acidTRANSPORTATION: P IV? O2? Oxygen?(No) Room: EDPT/PTT: (DEB: 01/30/2021 14:40) ( MsgRcvd 01/30/2021 15:39) Final results Test Result Flag Units (Reference) PROTIME 13.4 SECONDS (11.0 - 15.5) INR 0.97 (0.93 - 1.23) PTT 30.9 SECONDS (24.8 - 36.7) \\BLDo\\INR INTERPRETATION\\BLDx\\ Therapeutic range for Coumadin andrelated oral anticoagulants. -International Normalized Ratio (INR): 2.0 - 3.0 for VenousThrombosis, Pulmonary Embolus, Tissue heart valves, Acute IA Atrial Fibrillation, Valvular heart diseaseand recurrent Systemic Embolism. -International Normalized Ratio (INR): 2.5 - 3.5 forMechanical Prosthetic valve.Occult Blood Stool Diagnostic 1 slide: (DEB: 01/30/2021 14:30) ( MsgRcvd 01/30/2021 15:05)Final results Test Result Flag Units (Reference) OCCULT BLOOD NEGATIVE (NORMAL: NEGAT OCCULT BLOOD REENTER NEGATIVE (NORMAL: NEGAT { HEMOCCULT LOT # [id number] ){ LOT EXP [id number] ){ PROCEDURAL CONTROL POS/NEG CYNDY ID)Lactic Acid: (DEB: 01/30/2021 14:40) ( MsgRcvd 01/30/2021 15:59) Final results Test Result Flag Units (Reference) LACTIC ACID 4.1 HH MMOL/L (0.2 - 2.2) CALL/ READ BACK [place] IN ED BY: RIKI DATE/TIME CBC w Diff: (DEB: 01/30/2021 14:40) ( MsgRcvd 01/30/2021 16:18) Final results Test Result Flag Units (Reference) CBC W/AUTOMATED DIFF COMPLETE BLOOD COUNT WBC 6.2 10/uL (4.2 - 11.0) RBC 1.98 L 10/uL (4.50 - 6.30) HEMOGLOBIN 6.4 LL g/dL (14.0 - 16.0) CALL/ READ BACK [facility] IN ED BY: RIKI DATE/TIME HEMATOCRIT 21.2 L % (41.0 - 51.0) MCV 107.1 H fL (80.0 - 94.0) MCH 32.3 pg (27.0 - 34.0) MCHC 30.2 L g/dL (31.0 - 36.0) RDW 19.0 H % (11.5 - 14.8) PLATELETS 369 10/uL (150 - 450) MPV 9.9 fL (7.4 - 10.4) NEUT 53.0 % (37.0 - 80.0) LYMPH 20.7 L % (25.0 - 40.0) MONO 17.5 H % (3.0 - 8.0) EOS 6.9 % (0.0 - 7.0) 6 Clinical Report - Physicians/Mid Levels [facility] Emergency Department [address] [place] [address] Phone #: ext- [phone] 01/30/2021 13:49 Patient: ENID WANG Sex: M : 1965 Age: 55y BASO 1.3 % (0.0 - 2.0) %IG 0.6 H % (0.0 - 0.0) %NRBC 1.6 H % (0.0 - 0.0) #NEUT 3.29 10/uL (2.00 - 6.90) #LYMPH 1.29 10/uL (0.60 - 3.40) #MONO 1.09 H 10/uL (0.00 - 0.90) #EOS 0.43 10/uL (0.00 - 0.70) #BASO 0.08 10/uL (0.00 - 0.20) #IG 0.04 10/uL (0.00 - 0.10) #NRBC 0.10 H 10/uL (0.00 - 0.00) MANUAL DIFF SEE BELOW SEGS 58 % (37 - 80) BAND 0 % (0 - 5) %LYMPH 19 L % (25 - 40) %MONO 18 H % (3 - 8) %EOS 5 % (0 - 7) %BASO 0 % (0 - 2) METAMYELOCYTE 0 % MYELOCYTE 0 % PROMYELOCYTE 0 % BLASTS 0 % ANSELMO LYM 0 % NRBC 2 % RBC MORPH NOT INDICATEDCMP: (DEB: 01/30/2021 14:40) ( MsgRcvd 01/30/2021 15:53) Final results Test Result Flag Units (Reference) COMPREHENSIVE METABOLIC PANEL COMPREHENSIVE METABOLIC PANEL SODIUM 136 mEq/L (134 - 153) POTASSIUM 4.2 mEq/L (3.6 - 5.0) CHLORIDE 103 mEq/L (98 - 107) CO2 20 L MEQ/L (22 - 30) GLUCOSE 65 L MG/DL (70 - 99) BUN 8 MG/DL (7 - 21) CREATININE 0.7 MG/DL (0.7 - 1.5) BUN/CREAT 11 (8 - 27) TOTAL PROTEIN 5.5 L G/DL (6.3 - 8.2) ALBUMIN 3.4 L G/DL (3.9 - 5.0) GLOBULIN 2.1 L GM/DL (2.4 - 3.2) A/G RATIO 1.6 (0.8 - 2.0) CALCIUM 8.6 MG/DL (8.4 - 10.2) TOTAL BILI <0.7 MG/DL (0.2 - 1.3) ALKALINE PHOS 74 U/L (38 - 126) SGOT/AST 23 U/L (5 - 40) SGPT/ALT 19 U/L (7 - 56) ANION GAP 13.0 mmol/L (8.0 - 16.0) AGE 55 yrs NON-AA GFR >60 mL/min AFR AMER GFR >60 mL/min Male GFR Interprentation 20-49 yrs >60 mL/min Oefbcp55-12 yrs >56 mL/min Normal 60-69 yrs >49 mL/min Normal 70-79yrs>42 mL/min Normal 80 and above >35 mL/min Normal Female GFRInterpretation 20-39 yrs >60 mL/min Normal 40-49 yrs >58 mL/minNormal 50-59 yrs >51 mL/min Normal 60-69 yrs >45 mL/min Vhsqry68-94 yrs >39 mL/min Normal 80 and above >32 mL/min NormalType and Screen: (DEB: 01/30/2021 14:40) ( MsgRcvd 01/30/2021 16:13) Final results 7 Clinical Report - Physicians/Mid Levels [facility] Emergency Department [address] [place] [address] Phone #: ext- [phone] 01/30/2021 13:49 Patient: ENID WANG MRN: [id number] Sex: M : 1965 Age: 55y Test Result Flag Units (Reference) ABO GROUP O RH TYPE POSITIVE AB SCREEN NEGATIVE (NORMAL: NEGAT { ABO/RH REENTER O POSITIVE{ AB SCREEN RE- ENTER NEGATIVE.PROGRESS AND PROCEDURESCourse of Care: 17:Jan 30 2021. Pt with hx chronic anemia, chronic bed bug infestation, today withHGB of 6.4 and lactic acid of 4.1, mildly tachycardic in ED, discussed with hospitalist, (Dr Martínez) foradmission, he is concerned over ? source of lactic acidosis, awaiting CTAB, CXR results, if negative, planto admit to hospitalist service for further evaluation, tx, and stabilization of condition. Pt has been givenbolus of saline in ED for elevated lactate, and will be getting first of 2 units of blood here as well. Discussedwith attending. 19:Jan 30 2021. Lactic acid increased from 4.1 to 5.1 despite 1.5 L NS. after 3 hr redraw. Discussed with hospitalist who recommends transfer of pt due to this and other co-morbidities. Awaiting call back from [facility] hospitalist service. 20:Jan 30 2021. No call back from [facility], attempting [facility], awaiting call back from transfer center for bed availability. 20:Jan 30 2021. No bed availability at [facility], attempting [facility]. Hospitalist at [facility] feels pt can be managed at [facility]. Re-engaged Dr Martínez here, who will admit pt for further evaluation and treatment. Critical care performed (30 minutes). Time is exclusive of separately billable procedures. Time includes: direct patient care, patient reassessment, coordination of patient care, interpretation of data (laboratory data, pulse oximetry, chest xrays and prior electrocardiograms), review of patient's medical records, medical consultation and documentation of patient care- see progress notes. Disposition: Admitted to the Acute Inpatient Unit, Monitored. UTI (catheter associated) was not present prior to admission. Pressure ulcer was not present prior to admission. Vascular infection (catheter associated) was not present prior to admission. Surgical site infection was not present prior to admission. An object left in surgery was not present prior to admission. Blood incompatibility was not present prior to admission. Air embolism was not present prior to admission. Admit decision based on need for further evaluation, additional testing, monitoring, telemetry, IV hydration, antibiotics and medications and stabilization of condition.CLINICAL IMPRESSION Severe chronic anemia. Insect bite. (bed bug infestation). Abnormal tests; (elevated lactic acid). (? sepsis, elevated lactate, tachycardia). 8 Clinical Report - Physicians/Mid Levels [facility] Emergency Department [address] [place] [address] Phone #: ext- [phone] 01/30/2021 13:49 Patient: ENID WANG Sex: M : 1965 Age: 55y(Electronically signed by MIKAELA Conklin 01/30/2021 21:49) Name Value Range Interpretation Code Description Data Daisy rce(s) Supporting Document(s) ID Date Data Source [id number] 01/30/2021 11:24:44 PM EDT [facility] Name Value Range Interpretation Code Description Data Daisy rce(s) Supporting Document(s) Progress Note [facility] [id number] [facility] [file] [id number] ID Date Data Source [id number] 01/30/2021 09:12:00 PM EDT [facility] Name Value Range Interpretation Code Description Data Daisy rce(s) Supporting Document(s) CROSSMATCH [facility] \\MRHx\\\\16PI\\\\LM10\\\\TM00\\ \\BLDo\\\\UN Do\\COMPATABILITY TESTING:\\UNDx\\\\BLDx\\ \\UNDo\\PATIENT INFORMATION\\UNDx\\ ABO group [Type] in Blood O [facility] Rh [Type] in Blood POSITIVE [facility] AB SCREEN NEGATIVE [facility] { ABO/RH RE-ENTER O POSITIVE{ AB SCREEN RE-ENTER NEGATIVE \\UNDo\\DONOR INFORMATION\\UNDx\\ UNIT NUMBER _ARC# .SONYA.[id number] EXPIRATION DATE _02-13-21__ 01/30/21.SONYA.{ ABO/RH O POS{ XMATCH RESULT COMPATIBLE{ COMPONENT [facility] ID Date Data Source [id number] 02/04/2021 11:02:00 AM EDT [facility] Name Value Range Interpretation Code Description Data Daisy rce(s) Supporting Document(s) CULTURE BLOOD [facility] Ho spital _CULTURE BLOOD_ [place] [address] CLIA# [id number] SEE SCANNED REPORT{ PRELIM ID Date Data Source [id number] 02/04/2021 11:02:00 AM EDT [facility] Name Value Range Interpretation Code Description Data Daisy rce(s) Supporting Document(s) CULTURE BLOOD [facility] spital _CULTURE BLOOD_ TEST PERFORM ED AT [address] [address] CLIA# [id number] SEE SCANNED REPORT{ PRELIM ID Date Data Source [id number] 01/30/2021 07:22:00 PM EDT [facility] Name Value Range Interpretation Code Description Data Daisy rce(s) Supporting Document(s) URINALYSIS [facility]isa URINALYSIS SOURCE R [facility] COLOR yellow NORMAL: Yellow [facility] CLARITY clear NORMAL: Clear [facility] sp[facility] Specific gravity of Urine by Test strip 1.010 1.001 - 1.030 [facility] pH 5 5 - [facility] Glucose [Mass/volume] in Urine by Test strip NORM NORMAL: Negat [facility] Bilirubin.total [Presence] in Urine by Test strip NEG NORMAL: Negative [facility] Ketones [Presence] in Urine by Test strip NEG NORMAL: Negative [facility] Protein [Mass/volume] in Urine by Test strip NEG NORMAL: Negat [facility] Nitrite [Presence] in Urine by Test strip NEG NORMAL: Negative [facility] BLOOD NEG NORMAL: Negative [facility] Leukocyte esterase [Presence] in Urine by Test strip NEG ROCIO L: Negative [facility] Urobilinogen [Mass/volume] in Urine by Test strip NOR less rafael n 1.0 mg/dL [facility] MICROSCOPIC Not Indicate [facility] ospital ID Date Data Source [id number] 01/30/2021 06:39:00 PM EDT [facility] Name Value Range Interpretation Code Description Data Daisy rce(s) Supporting Document(s) Lactate [Moles/volume] in Serum or Plasma 5.1 MMOL/L 0.2 - 2.2 [facility] VERIFIED BY REPEAT CALL/ READ BACK CALLED TO [facility] BY: SONYA [facility] DATE/TIME 01-30-21 183 [facility] asimtal ID Date Data Source [id number] 01/30/2021 05:00:00 PM EDT [facility] Name Value Range Interpretation Code Description Data Daisy rce(s) Supporting Document(s) COVID19 Case rprt NOT DETECTED [facility] This lab was ordered by [facility] and reported by [facility]. ID Date Data Source [id number] 01/30/2021 05:34:00 PM EDT [facility] NOT DETECTEDNOT DETECTED{ PROC EDURAL CONTROL VALID KIT LOT # _[id number] 01/30/21.DW . KIT EXP DATE _24-91-07 01/30/21.1733.DW . NORMAL RANGE IS NOT DETECTEDNEGATIVE RESULTS SHOULD BE TREATED PRESUMPTIVE AND, IF INCONSISTENT WITHCLINICAL SIGNS AND SYMPTOMS OR NECESSARY FOR PATIENT MANAGEMENT, SHOULD BETESTED WITH DIFFERENT AUTHORIZED OR CLEARED MOLECULAR TESTS. NEGATIVE RESULTSDO NOT PRECLUDE SARS-CoV-2 INFECTION AND SHOULD NOT BE USED THE SOLE BASISFOR PATIENT MANAGEMENT DECISIONS. Name Value Range Interpretation Code Description Data [facility](s) Supporting Document(s) ID Date Data Source [id number] 01/30/2021 09:10:00 PM EDT [facility] Name Value Range Interpretation Code Description Data [facility](s) Supporting Document(s) CROSSMATCH [facility] lisa \\MRHx\\\\16PI\\\\LM10\\\\TM00\\ \\BLDo\\\\UN Do\\COMPATABILITY TESTING:\\UNDx\\\\BLDx\\ \\UNDo\\PATIENT INFORMATION\\UNDx\\ ABO group [Type] in Blood O [facility] Rh [Type] in Blood POSITIVE [facility] AB SCREEN NEGATIVE [facility] { ABO/RH RE-ENTER O POSITIVE{ AB SCREEN RE-ENTER NEGATIVE \\UNDo\\DONOR INFORMATION\\UNDx\\ UNIT NUMBER _ARC# .SONYA.[id number] EXPIRATION DATE _02-13-21__ 01/30/21.SONYA.{ ABO/RH O POS{ XMATCH RESULT COMPATIBLE{ COMPONENT [facility] ID Date Data Source [id number] 01/30/2021 03:39:00 PM EDT [facility] Name Value Range Interpretation Code Description Data [facility](s) Supporting Document(s) Prothrombin time (PT) 13.4 SECONDS 11.0 - 15.5 [facility] INR in Platelet poor plasma by Coagulation assay 0.97 0.93 - 1. 23 [facility] aPTT in Blood by Coagulation assay 30.9 SECONDS 24.8 - 36.7 [facility] \\BLDo\\INR INTERPRETATION\\BLDx\\ Therapeutic range for Coumadin and related oral anticoagulants. - International Normalized Ratio (INR): 2.0 - 3.0 for Venous Thrombosis, Pulmonary Embolus, Tissue heart valves, Acute IA Atrial Fibrillation, Valvular heart disease and recurrent Systemic Embolism. - International Normalized Ratio (INR): 2.5 - 3.5 for Mechanical Prosthetic valve. ID Date Data Source [id number] 01/30/2021 04:18:00 PM EDT [facility] Name Value Range Interpretation Code Description Data Daisy rce(s) Supporting Document(s) CBC W/AUTOMATED DIFF [facility] COMPLETE BLOOD COUNT Leukocytes [#/volume] in Blood by Automated count 6.2 10^3/uL 4.2 - 1 1.0 [facility] Erythrocytes [#/volume] in Blood by Automated count 1.98 10^6/uL 4. 50 - 6.30 L [facility] Hemoglobin [Mass/volume] in Blood 6.4 g/dL 14.0 - 16.0 LL [facility] CALL/ READ BACK [place] IN ED [facility] BY: RIKI [facility] DATE/TIME [facility] ital Hematocrit [Volume Fraction] of Blood by Automated count 21.2 % 4 1.0 - 51.0 L [facility] Erythrocyte mean corpuscular volume [Entitic volume] b y Automated count 107.1 fL 80.0 - 94.0 H [facility] Erythrocyte mean corpuscular hemoglobin [Entitic mass] by Automated count 32.3 pg 27.0 - 34.0 [facility] Erythrocyte mean corpuscular hemoglobin concentration [Mass/volume] by Automated count 30.2 g/dL 31.0 - 36.0 L [facility] Erythrocyte distribution width [Ratio] by Automated count 19.0 % 11.5 - 14.8 H [facility] Platelets [#/volume] in Blood by Automated count 369 10^3/uL 150 - 45 0 [facility] Platelet mean volume [Entitic volume] in Blood by Automated count 9.9 fL 7.4 - 10.4 [facility] Neutrophils/100 leukocytes in Blood by Automated count 53.0 % 37. 0 - 80.0 [facility] Lymphocytes/100 leukocytes in Blood by Manual count 20.7 % 25.0 - 40.0 L [facility] Monocytes/100 leukocytes in Blood by Automated count 17.5 % 3.0 - 8.0 H [facility] Eosinophils/100 leukocytes in Blood by Automated count 6.9 % 0.0 - 7.0 [facility] 1.3 %IG 0.6 % 0.0 - 0.0 H [facility] %NRBC 1.6 % 0.0 - 0.0 H [facility] Neutrophils [#/volume] in Blood by Automated count 3.29 10^3/uL 2.00 - 6.90 [facility] Lymphocytes [#/volume] in Blood by Automated count 1.29 10^3/uL 0.60 - 3.40 [facility] Monocytes [#/volume] in Blood by Automated count 1.09 10^3/uL 0.00 - 0.90 H [facility] Eosinophils [#/volume] in Blood by Automated count 0.43 10^3/uL 0.00 - 0.70 [facility] Basophils [#/volume] in Blood by Automated count 0.08 10^3/uL 0.00 - 0.20 [facility] #IG 0.04 10^3/uL 0.00 - 0.10 [facility] ospital #NRBC 0.10 10^3/uL 0.00 - 0.00 H [facility] ospital MANUAL DIFF SEE BELOW [facility] Segmented neutrophils/100 leukocytes in Blood by Manual count 58 % 37 - 80 [facility] BAND 0 % 0 - 5 [facility] %LYMPH 19 % 25 - 40 L [facility] %MONO 18 % 3 - 8 H [facility] %EOS 5 % 0 - 7 [facility] 0 Metamyelocytes/100 leukocytes in Blood by Manual count 0 % [facility] Myelocytes/100 leukocytes in Blood by Manual count 0 % [facility] Promyelocytes/100 leukocytes in Blood by Manual count 0 % [facility] Blasts/100 leukocytes in Blood by Manual count 0 % [facility] ANSELMO LYM 0 % [facility] Nucleated erythrocytes/100 erythrocytes in Blood by Manual count 2 % [facility] RBC MORPH NOT INDICATED [facility] spital ID Date Data Source [id number] 01/30/2021 04:10:00 PM EDT [facility] Name Value Range Interpretation Code Description Data Daisy rce(s) Supporting Document(s) ABO group [Type] in Blood O [facility] Rh [Type] in Blood POSITIVE [facility] AB SCREEN NEGATIVE NORMAL: NEGATIVE [facility] { ABO/RH REENTER O POSITIVE{ AB SCREEN RE-ENTER NEGATIVE ID Date Data Source [id number] 01/30/2021 03:58:00 PM EDT [facility] Name Value Range Interpretation Code Description Data Daisy rce(s) Supporting Document(s) Lactate [Moles/volume] in Serum or Plasma 4.1 MMOL/L 0.2 - 2.2 HH [facility] CALL/ READ BACK [place] IN ED [facility] BY: RIKI [facility] ID Date Data Source [id number] 01/30/2021 03:53:00 PM EDT [facility] Name Value Range Interpretation Code Description Data Daisy rce(s) Supporting Document(s) COMPREHENSIVE METABOLIC PANEL [facility] COMPREHENSIVE METABOLIC PANEL Sodium [Moles/volume] in Serum or Plasma 136 mEq/L 134 - 153 [facility] Potassium [Moles/volume] in Serum or Plasma 4.2 mEq/L 3.6 - 5.0 [facility] Chloride [Moles/volume] in Serum or Plasma 103 mEq/L 98 - 107 [facility] Carbon dioxide, total [Moles/volume] in Serum or Plasma 20 MEQ/L 22 - 30 L [facility] Glucose [Mass/volume] in Serum or Plasma 65 MG/DL 70 - 99 L [facility] BUN 8 MG/DL 7 - [facility] Creatinine [Mass/volume] in Serum or Plasma 0.7 MG/DL 0.7 - 1.5 [facility] BUN/CREAT 11 8 - 27 [facility] Protein [Mass/volume] in Serum or Plasma 5.5 G/DL 6.3 - 8.2 L [facility] Albumin [Mass/volume] in Serum or Plasma 3.4 G/DL 3.9 - 5.0 L [facility] Globulin [Mass/volume] in Serum by calculation 2.1 GM/DL 2.4 - 3.2 L [facility] A/G RATIO 1.6 0.8 - 2.0 [facility] al Calcium [Mass/volume] in Serum or Plasma 8.6 MG/DL 8.4 - 10.2 [facility] Bilirubin.total [Mass/volume] in Serum or Plasma <0.7 MG/DL 0.2 - 1.3 [facility] Alkaline phosphatase [Enzymatic activity/volume] in Serum or Plasma 74 U/L 38 - 126 [facility] Aspartate aminotransferase [Enzymatic activity/volume] in Serum or Plasma 23 U/L 5 - 40 [facility] Alanine aminotransferase [Enzymatic activity/volume] in Seru m or Plasma 19 U/L 7 - 56 [facility] Anion gap 3 in Serum or Plasma 13.0 mmol/L 8.0 - 16.0 [facility] AGE 55 yrs [facility] al NON-AA GFR >60 mL/min [facility] ital AFR AMER GFR >60 mL/min [facility] spital Male GFR In terprentation 20-49 yrs >60 mL/min Normal 50-59 yrs >56 mL/min Normal 60-69 yrs >49 mL/min Normal 70-79yrs >42 mL/min Normal 80 and above >35 mL/min Normal Female GFR Interpretation 20-39 yrs >60 mL/min Normal 40-49 yrs >58 mL/min Normal 50-59 yrs >51 mL/min Normal 60-69 yrs >45 mL/min Normal 70-79 yrs >39 mL/min Normal 80 and above >32 mL/min Normal ID Date Data Source [id number] 01/30/2021 03:05:00 PM EDT [facility] Name Value Range Interpretation Code Description Data Daisy rce(s) Supporting Document(s) OCCULT BLOOD NEGATIVE NORMAL: NEGATIVE [facility] OCCULT BLOOD REENTER NEGATIVE NORMAL: NEGATIVE [facility] { HEMOCCULT LOT # [id number] ){ LOT EXP DATE 04-06-22 ){ PROCEDURAL CONTROL POS/NEG VALID ) ID Date Data Source [id number] 01/05/2021 10:08:00 AM EST [facility] [address] [place] [address] RESPIRATORY CARE REPORT ==== ---------NAME------- NUMBER SEX AGE ADMIT DISC. XRAY# F/C TYPEKATHLEEN Le [id number] 55 01/04/21 01/04/21 [id number] X6B E/R DATE OF : 1965 M/R# [id number] #: [id number] TR-05 LOCATION: EMERGENCY DEPT EKG 92623 COMPLE TE:01/05/21 08:07 [place] [id number] PHYSICIAN: DEEPALI BYNUM NOR Name Value Range Interpretation Code Description Data Daisy rce(s) Supporting Document(s) ID Date Data Source [id number] 01/04/2021 01:36:00 PM EST [facility] 1 OrderSheet [facility] Emergency Department [address] [place] [address] Phone #: ext- [phone] 01/04/2021 13:35 Patient: ENID WANG Sex: M : 1965 Age: 55yWEIGHT:54.1 kg (M) HEIGHT:62 inches (S) BMI:21.8ALLERGIES: Abacavir, Bactrim, Bee stings, Penicillins, Sulfa AntibioticsCHIEF COMPLAINT: abnormal lab, instructed to come to EDDIAGNOSIS: AnemiaLAB ORDERSOrder Description Priority Entered Acknowledged Initi aledCBC w Diff STAT 15:01/04/2021 15:11 Rocio Mcclellan MD; Chris RNCMP STAT 15:01/04/2021 15:11 Rocio Mcclellan MD; Chris RNPT/INR STAT 15:01/04/2021 15:11 Rocio Mcclellan MD; Chris RNPT/PTT STAT 15:07 01/04/2021 15:11 Rocio Mcclellan MD; Chris RNLDH STAT 15:07 01/04/2021 15:11 Rocio Mcclellan MD; Chris RNLactic Acid STAT 15:07 01/04/2021 15:11 Rocio Mcclellan MD; Chris RNTroponin-T STAT 16:29 01/04/2021 16:39 Rocio Mcclellan MD; Chris RNMagnesium STAT 16:29 01/04/2021 16:39 Rocio Mcclellan MD; Chris RNOccult Blood Stool 17:06 01/04/2021 17:06 AbdirahmanDiagnostic 1 slide Abdirahman Perez RN; Chris RN Verbal order per ( Verbal order read back and verified ); Rocio Bynum MDDIAGNOSTIC STUDY ORDERSOrder Description Priority Entered Acknowledged InitialedMEDICATION/IV/DRIP/FLUID ORDERSOrder Description Priority Entered Acknowledged InitialedIV NS 1000 mL 16:29 01/04/2021 16:47 AbdirahmanBolus : Bolus 1000 Rocio Bynum MD; Chris KYLE 2 OrderSheet [facility] Emergency Department [address] [place] [address] Phone #: ext- [phone] 01/04/2021 13:35 Patient: ENID WANG Sex: M : 1965 Age: 55ymL (X1)GENERAL ORDERSOrder Description Priority Entered Acknowledged InitialedEKG 15:07 01/04/2021 15:34 Rocio Mcclellan MD; Chris RN[Electronically signed by Abdirahman Perez RN (18:36 01/04/2021)][Electronically signed by Rocio Bynum MD (20:47 01/04/2021)][Electronically locked by Abdirahman Perez RN (18:36 01/04/2021)] Name Value Range Interpretation Code Description Data Daisy rce(s) Supporting Document(s) ID Date Data Source [id number] 01/04/2021 01:36:00 PM [facility] 1 Medication Reconciliation Report [facility] Emergency Department [address] [place] [address] Phone #: ext- [phone] 01/04/2021 13:35 Patient: ENID WANG Sex: M : 1965 Age: 55yWeight: 54.1 kgHeight/Length: 62 in.BMI: 21.8ALLERGIES: Abacavir, Bactrim, Bee stings, Penicillins, Sulfa AntibioticsThe patient's Home Medications are listed below:CONTINUE TAKING THE FOLLOWING MEDICATIONS: Albuterol Sulfate HFA Inhalation, prn Aspirin Oral (81 mg), daily Biktarvy Oral (50-200-25 mg), daily Ferrous Sulfate Oral (325 (65 Fe) mg), daily Protonix Oral 40 mg, daily Sucralfate Oral (1 gm), 4x a dayThe source(s) of the original Home Medication information:Not obtained.The following Medications were given to the patient in the Emergency Department:NS [IV] IV Fluids bolus 0, then 1000 mL/hr, administered: 16:47 01/04/2021The following Medications were prescribed to the patient:Iron (ferrous sulfate) 325 mg (65 mg iron) tablet Take 1 tablet once a day -- Dispense 30 tablet. Refills:0. Substitution permitted.Pharmacy - [id number] [id number] [facility] [facility] ; [place], [place] [id number]. . -- Rocio Bynum MD Name Value Range Interpretation Code Description Data Daisy rce(s) Supporting Document(s) ID Date Data Source [id number] 01/04/2021 01:36:00 PM [facility] 1 Medication Administration Record [facility] Emergency Department [address] [place] [address] Phone #: ext- [phone] 01/04/2021 13:35 Patient: ENID WANG Sex: M : 1965 Age: 55yWeight: 54.1 kgHeight/Length: 62 inBMI: 21.8ALLERGIES: Abacavir, Bactrim, Bee stings, Penicillins, Sulfa Antibiotics Date/Time Medication Administered Medication OrderedStart NS [IV] IV NS 1000 mL Bolus : Bolus [id number] 01/04/2021 Dose: IV Fluids mL (X1)Abdirahman Perez RN Rate: 1000 mL/hr over 1 hour(s)---- Dispensed: 1000 mL bagStop Site: #1 right hand17:58 01/04/2021eter SAROJ Perez Name Value Range Interpretation Code Description Data Daisy rce(s) Supporting Document(s) ID Date Data Source [id number] 01/04/2021 01:36:00 PM EST [facility] 1 General Instructions [facility] Emergency Department [address] [place] [address] Phone #: ext- [phone] 01/04/2021 13:35 Patient: ENID WANG Sex: M : 1965 Age: 55yIron deficiency anemia.Poor Hygeine.INSTRUCTIONSNo strenuous activity.(Please call [facility] at [phone] for assistance with your living condition.I sent a prescription to your pharmacy for iron. please take as instructed, once daily. Y ou will needrepeat blood work in 2 weeks. Please call your doctor for a follow up appt tomorrow.).Warnings: Further evaluation is necessary.GENERAL WARNINGS: Return or contact your physician immediately if your condition worsens orchanges unexpectedly, if not improving as expected, or if other problems arise.Your Current Medications: Your current home medications have been reviewed.CONTINUE TAKING THE FOLLOWING MEDICATIONS:Albuterol Sulfate HFA Inhalation : prn.Aspirin Oral : Tablet Chewable 81 mg, daily.Biktarvy Oral : Tablet 50-200-25 mg, daily.Ferrous Sulfate Oral : Tablet 325 (65 Fe) mg, daily.Protonix Oral : 40 mg daily.Sucralfate Oral : Tablet 1 gm, 4x a day.Prescription Medications:Iron (ferrous sulfate) 325 mg (65 mg iron) tablet Take 1 tablet once a day -- Dispense 30 tablet. Refills:0. Substitution permitted.Pharmacy - [id number] [id number] [facility] ; [place], [place] [id number]. .Follow-up:Follow up with your doctor Tuesday even if well. Call for an appointment. Reason for referral: evaluation.Summary of care provided to patient via paper.Understanding of the discharge instructions verbalized by patient. ADDITIONAL INFORMATION 2 General Instructions [facility] Emergency Department [address] [place] [address] Phone #: ext- [phone] 01/04/2021 13:35 Patient: ENID WANG Sex: M : 1965 Age: 55yAnemia, Type Not Specified (Adult)Red blood cells carry oxygen to the tissues of your body. Anemia is a condition in which you have toofew red blood cells. You need iron to make red blood cells. The most common cause of anemia is nothaving enough iron. This may be because of: Loss of blood. This can be caused by heavy menstrual periods. It can also be caused by bleeding from the stomach or intestines. Poor diet. You may not be eating enough foods that contain iron.Other causes of anemia include certain vitamin deficiencies, chronic kidney disease, and otherchronic illnesses.Anemia makes you feel tired and run down. When anemia becomes severe, your skin becomes pale.You may feel short of breath after physical activity. Other symptoms include: Headaches Dizziness Leg cramps with physical activity DrowsinessHome careFollow these guidelines when caring for yourself at home: Don't overexert yourself. Talk with your healthcare provider before traveling by air or traveling to high altitudes.Follow-up careFollow up with your healthcare provider, or as advised. You may need other blood tests to find out theexact cause of your anemia. If you had testing done today, it may take several days to get all of theresults. You can follow up with your own healthcare provider to get the results.Call [phone] or get immediate medical care if any of the following occur: Shortness of breath or chest pain Dizziness or fainting gets worse Vomiting blood or passing red or black-colored stool 3 General Instructions [facility] Emergency Department [address] [place] [address] Phone #: ext- [phone] 01/04/2021 13:35 Patient: ENID WANG Sex: M : 1965 Age: 55y [id number] [place] [address]. All rights reserved. This information is not intended as asubstitute for professional medical care. Always follow your healthcare professional's instructions. You have been given the following additional information: Anemia, Type Not Specified (Adult) No strenuous activity.(Electronically signed by Rocio Bynum MD 01/04/2021 20:47) Name Value Range Interpretation Code Description Data Daisy rce(s) Supporting Document(s) ID Date Data Source [id number] 01/04/2021 01:36:00 PM EST [facility] 1 Clinical Report - Nurses [facility] Emergency Department [address] [place] [address] Phone #: rff- [phone] 01/04/2021 13:35 Patient: ENID WANG Sex: M : 1965 Age: 55yTRIAGEArrived by private vehicle. Historian: patient.Triage time: 13:37 01/04/2021. Acuity: LEVEL 3.Chief Complaint: ABNORMAL LAB (suspected). He was instructed to come to the ED for evaluation.13:37 01/04/21. Alert. 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 SEPSIS SCREEN: infection of skin.--13:50 01/04/21 Calista Robins RN13:37 01/04/21. BP: 129/68. MAP: 88. HR: 92. RR: 18. O2 saturation: 100%. Temp: 97.6 F. Pain levelnow: 0/10. --13:50 01/04/21 Calista Robins RN.Weight: 54.1 kg measured. Height/Length: 62 inches Per Patient. BMI: 21.8. --13:36 01/04/21 SAROJ Sanon.M edicationsAlbuterol Sulfate HFA Inhalation, as needed. Aspirin Oral (Tablet Chewable 81 mg), daily. Biktarvy Oral (Tablet 50-200-25 mg), daily. Ferrous Sulfate Oral (Tablet 325 (65 Fe) mg), daily. Protonix Oral 40 mg, daily. Sucralfate Oral (Tablet 1 gm), 4x a day. --13:40 01/04/21 Calista Robins RN.AllergiesAbacavir.Bactrim.Bee stings.Penicillins.Sulfa Antibiotics. --13:40 01/04/21 Calista Robins RN.PROBLEMS:Hepatitis.Gastroesophageal Reflux Disease.Iron deficiency anemia. 2 Clinical Report - Nurses [facility] Emergency Department [address] [place] [address] Phone #: ext- [phone] 01/04/2021 13:35 Patient: ENID WANG Sex: M : 1965 Age: 55yNephrolithiasis.Alcoholism.COPD - Chronic Obstructive Pulmonary Disease.Peptic Ulcer Disease.HIV Illness.Hypertension. --13:41 01/04/21 Calista Robins RN.ADDITIONAL SURGERIES:no known surgeries.Yzxdvct43:37 01/04/21.PAST MEDICAL HX: Immunizations: status is unknown.SOCIAL HX: Heavy tobacco smoker (cigarette)- more than 2 packs per day. Alcohol use; consumes beerdaily and liquor. (beer 15 pack, Eduardo Alexis). No drug use. He has not traveled outside the [place]Infectious disease exposure: No infectious disease exposure. Patient is a known carrier of hepatitis andHIV. (Negative COVID screen). Patient is not a known carrier of tuberculosis, MRSA, VRE or CRE.SELF HARM ASSESSMENT: Self harm assessment was performed. The patient answered "no" to thequestion(s) "Do you have thoughts of harming or killing yourself?" and "Have you recently had thoughtsabout harming or killing others?".ABUSE ASSESSMENT: Abuse assessment. The patient had positive responses to the question(s) "Do youfeel safe in your home?" (yes). Abuse denied. No report of abuse.NUTRITIONAL RISK ASSESSMENT: The nutritional risk assessment revealed no deficiencies.FALL RISK ASSESSMENT: Fall risk assessment completed. Risk factors identified include patientimpairment of mobility. Fall interventions initiated. Patient placed on stretcher. Side rails up x2. Bed in lowposition. Brakes on. Call light in reach of patient. Instructed not to get up without assistance. Instructionsgiven to patient including fall prevention information. Verbalizes understanding.FUNCTIONAL ASSESSMENT: Functional assessment performed: independent with the activities of dailyliving; cognitive impairment- developmentally delayed. The patient is under physician care for his functionalimpairment lost eyeglasses. No communication barrier.LEARNING NEEDS ASSESSMENT: A learning needs assessment was performed. Factors affecting thepatient's ability to learn include cognitive limitations.SKIN INTEGRITY ASSESSMENT: Skin integrity risk assessment was performed. Risk factors identifiedinclude other factors (bed bug bites). --13:50 01/04/21 Calista Robins RN.Interventions 3 Clinical Report - Nurses [facility] Emergency Department [address] [place] [address] Phone #: ext- [phone] 01/04/2021 13:35 Patient: ENID WANG Sex: M : 1965 Age: 55y 13:37 01/04/21. Contact isolation precautions initiated. Patient teaching given regarding isolation precautions. To treatment room. Transported via stretcher by EMS. to room 5. --13:50 01/04/21 Calista Robins RN.PHYSICAL ASSESSMENTTo room via stretcher.GENERAL / NEURO / PSYCH: Alert. Oriented X 4. Appears in no acute distress.HEENT: Pupils equal, round and reactive to light. No facial asymmetry noted. Mucous membranes arepink.RESPIRATORY: Respirations not labored. Chest nontender. Breath sounds within normal limits.CVS: Normal sinus rhythm noted. Capillary refill less than 2 seconds. Pulses within normal limits.GI / : Abdomen soft and nontender and normal bowel sounds.SKIN: Skin intact. Skin is warm and dry. Normal skin turgor. ( pt does have multiple sores from bugbites, pt does have bugs crawling on his Tyvek suit he was put into prior to leaving his home). --14: Abdirahman Perez RN.NURSING PROGRESS NOTES13:37 01/04/21. Head of bed elevated. Two patient identifiers checked. Call light placed in reach. Siderails up x 2. Bed placed in lowest position. Brakes of bed on. Patient ready for evaluation- ED physiciannathen AL notified. --13:51 01/04/21 Calista Robins RN 14:04 01/04/2021 Site #1 started via IV in the right hand with an 20g angiocath, with aseptic technique and good blood return; one attempt. Saline lock flushed with 10 mL saline (per Shin KYLE, another nurse attempted x 2). --14:04 01/04/21 Abdirahman Perez RN ( pt completely stripped of garments and put into hospital scrubs, ambulated himself to the shower and tech to assist him with a shower). --15:05 01/04/21 Abdirahman Perez RN EKG time: (15:36 01/04/2021). EKG was performed by a nurse and shown to the ED physician. --15:34 01/04/21 Abdirahman Perez RN 15:36 01/04/21. BP: 130/77. MAP: 94. HR: 98. RR: 16. O2 saturation: 98%. Pain level now: 03/16. --15:37 01/04/21 Abdirahman Perez RN ( pt returned from shower, drawing labs and doing EKG). --15:37 01/04/21 Abdirahman Perez RN Patient ID band checked for patient name and birthdate: patient confirmed. Blood samples drawn from the right wrist peripheral IV site with Vacutainer by nurse per protocol ; labeled in presence of the patient and sent to lab: rainbow set, green top and blood bank tube; cardiac enzymes (1st set). --15:45 01/04/21 Abdirahman Perez RN 15:45 01/04/21. BP: 126/81. MAP: 96. HR: 99. RR: 18. O2 satu ration: 98%. Pain level now: 03/16. --15:46 01/04/21 Abdirahman Perez RN 4 Clinical Report - Nurses [facility] Emergency Department [address] [place] [address] Phone #: ext- [phone] 01/04/2021 13:35 Patient: ENID WANG Sex: M : 1965 Age: 55y ( PT VOICES CHRONIC BACK PAIN). --15:46 01/04/21 Abdirahman Perez RN 16:47 01/04/2021 Started bag #1 1000 mL IV Fluids NS; at 1000 mL/hr over 1 hour(s) via site #1 via IV pump. Allergies verified and confirmed 5 rights. IV patency established. IV site checked: no pain, redness, or swelling. IV flushed thoroughly pre- and post-medication administration. Information reviewed with patient including reason for taking this medication. Verbalizes understanding. --16:47 01/04/21 Abdirahman Perez RN 16:49 01/04/21. BP: 132/94. MAP: 106. HR: 96. RR: 16. O2 saturation: 100%. Pain level now: 05/16. --16:50 01/04/21 Abdirahman Perez RN ( This card writer hand and MD Bynum spoke to pt sister Ashley and Pt father at length at 1700 about pt care and referral to [facility] and follow up. Attempted to call [facility] program manager environmental planning to find out what pt would need for referral and left voicemail, family aware will need to call and set up tomorrow). --17:27 01/04/21 Jackelyn Chung R.N. 17:58 01/04/2021 IV Fluids NS via IV site #1 Disc ontinued: infused. Total amount infused: 1000 mL. IV patency established. IV site checked: no pain, redness, or swelling. IV flushed thoroughly. --17:58 01/04/21 Abdirahman Perez RN ( [facility] and stated to fax cover sheet to [phone] with note stating looking for home health care services, this was faxed at [phone], Pt sister Ashley made aware of this at 1755). --18:04 01/04/21 Jackelyn Chung R.N. 18:11 01/04/2021 Site #1 removed upon discharge. Catheter intact. Manual pressure and bandage applied. --18:11 01/04/21 Abdirahman Perez RN.DISPOSITION / DISCHARGE Condition at departure: improved and stable. Discharge instructions provided and reviewed with the patient. Reviewed medication(s) side effects, precautions, dosing and course information. Prescription(s) sent electronically to pharmacy. Patient verbalized understanding. Written instructions provided in [place]i. The patient was discharged by the physician. He was discharged home and accompanied by family. He left ambulatory and via private vehicle. Family member driving. --18:36 01/04/21 Abdirahman Perez RN 18:35 01/04/21. BP: 149/95. MAP: 113. HR: 94. RR: 16. O2 saturation: 99%. Pain level now: 12/17. --18:36 01/04/21 Abdirahman Perez RN.Locked/Released at 01/04/2021 18:36 by Abdirahman Perez RN 5 Clinical Report - Nurses [facility] Emergency Department [address] [place] [address] Phone #: ext- [phone] 01/04/2021 13:35 Patient: ENID WANG Sex: M : 1965 Age: 55y Name Value Range Interpretation Code Description Data Daisy rce(s) Supporting Document(s) ID Date Data Source [id number] 01/04/2021 01:36:00 PM EST [facility] 1 Clinical Report - Physicians/Mid Levels [facility] Emergency Department [address] [place] [address] Phone #: ext- [phone] 01/04/2021 13:35 Patient: ENID WANG Sex: M : 1965 Age: 55y Arrived- By private vehicle. Historian- patient. Disposition decision: 18:24 01/04/2021.HISTORY OF PRESENT ILLNESS Chief Complaint: abnormal lab. ABNORMAL LAB. This started today and is still present. At its maximum, severity described as mild. When seen in the E.D., severity described as mild. No loss of appetite, weight loss, headache, visual disturbance or fatigue. No muscle aches or weakness. Denies sleep problem. No decreased urine output. No current or associated symptoms. (ABNORMAL LAB (suspected). He was instructed to come to the ED for evaluation for abnormal lab. Pt adamantly denies any symptoms including weakness, cp, shortness of breath, brbpr, dark black stools. he denies any abdominal pain.). Similar symptoms previously. Recent medical care: The patient was seen recently in the office.REVIEW OF SYSTEMSNo fever, sore throat, sinus drainage, nasal congestion or cough. No difficulty breathing, chest pain,abdominal pain, nausea or vomiting. No diarrhea, black stools, bloody stools, chills or difficulty withurination. No back pain, calf pain, headache, blackouts or double vision. The patient has had skin rash.No difficulty with ambulation.PAST HISTORYSee nurses notes. Problems: Hepatitis. Gastroesophageal Reflux Disease. Iron deficiency anemia. COPD - Chronic Obstructive Pulmonary Disease. HIV Illness. Hypertension. Additional Surgeries: no known surgeries. Medications: Albuterol Sulfate HFA Inhalation, as needed. Aspirin Oral (Tablet Chewable 81 mg), daily. Biktarvy Oral (Tablet 50-200-25 mg), daily. 2 Clinical Report - Physicians/Mid Levels [facility] Emergency Department [address] [place] [address] Phone #: [phone] ext- [phone] 01/04/2021 13:35 Patient: ENID WANG Sex: M : 1965 Age: 55y Ferrous Sulfate Oral (Tablet 325 (65 Fe) mg), daily. Protonix Oral 40 mg, daily. Sucralfate Oral (Tablet 1 gm), 4x a day. Allergies: Abacavir. Bactrim. Bee stings. Penicillins. Sulfa Antibiotics.SOCIAL HISTORYNo drug use.ADDITIONAL NOTESThe nursing notes have been reviewed.PHYSICAL EXAMVital Signs: 01/04/2021 18:35 BP: 149/95. MAP: 113. HR: 94. RR: 16. O2 saturation: 99 %. Pain level now:12/17.01/04/2021 16:49 BP: 132/94. MAP: 106. HR: 96. RR: 16. O2 saturation: 100%. Pain level now: 05/16.01/04/2021 15:45 BP: 126/81. MAP: 96. HR: 99. RR: 18. O2 saturation: 98%. Pain level now: 03/16.01/04/2021 15:36 BP: 130/77. MAP: 94. HR: 98. RR: 16. O2 saturation: 98%. Pain level now: 03/16.01/04/2021 13:37 BP: 129/68. MAP: 88. HR: 92. RR: 18. O2 saturation: 100%. Temp: 97.6 F. Pain levelnow: 0/10. Have been reviewed and appear to be correct. Blood pressure normal. Mean arterialpressure- normal. Heart rate normal. Respiratory rate normal. Temperature normal. Oxygensaturation normal.Appearance: Alert. (unkempt with bed bugs all over patient).Eyes: Pupils equal, round and reactive to light. Eyes normal inspection.ENT: Nose normal. Mildly dry mucous membranes present (mild). Pharyngeal erythema.Neck: Normal inspection. Neck supple.CVS: Normal heart rate and rhythm. Heart sounds normal. Pulses normal.Respiratory: No respiratory distress. Painless inspiration. Breath sounds normal. Chest nontender.Abdomen: No visible injury. Soft and nontender. Bowel sounds normal.Back: Normal inspection. No CVA tenderness.Skin: Skin warm and dry. Normal skin color. Normal skin turgor. Mild, linear skin rash (few abrasions,scratch dunn). (pt has bed bugs crawling on his clothes, shoes, hair.).Extremities: Extremities exhibit normal ROM. No lower extremity edema.Neuro: Oriented X 3. No motor deficit. No sensory deficit.LABS, X-RAYS, AND EKGLaboratory Tests: Occult Blood Stool Diagnostic 1 slide: (DEB: 01/04/2021 16:57) ( [facility] 01/04/2021 17:14) Final results Test Result Flag Units (Reference) 3 Clinical Report - Physicians/Mid Levels [facility] Emergency Department [address] [place] [address] Phone #: ext- [phone] 01/04/2021 13:35 Patient: ENID WANG Sex: M : 1965 Age: 55y OCCULT BLOOD NEGATIVE (NORMAL: NEGAT OCCULT BLOOD REENTER NEGATIVE (NORMAL: NEGAT { HEMOCCULT LOT # [id number] ){ LOT EXP [id number] ){ PROCEDURAL CONTROL POS/NEG VALID)Troponin-T: (DEB: 01/04/2021 15:40) ( [facility] 01/04/2021 16:53) Final results Test Result Flag Units (Reference) TROPONIN T <0.01 NG/ML (0.00 - 0.10) TROPONIN T0.1 ng/ml Recommended as the clinical threshold value forTroponin T.Magnesium: (DEB: 01/04/2021 15:40) ( [facility] 01/04/[facility] 16:44) Final results Test Result Flag Units (Reference) MAGNESIUM 1.8 MG/DL (1.7 - 2.2)CBC w Diff: (DEB: 01/04/2021 15:40) ( [facility] 01/04/2021 15:56) Final results Test Result Flag Units (Reference) CBC W/AUTOMATED DIFF COMPLETE BLOOD COUNT WBC 7.8 10/uL (4.2 - 11.0) RBC 2.36 L 10/uL (4.50 - 6.30) HEMOGLOBIN 7.6 L g/dL (14.0 - 16.0) HEMATOCRIT 24.1 L % (41.0 - 51.0) MCV 102.1 H fL (80.0 - 94.0) MCH 32.2 pg (27.0 - 34.0) MCHC 31.5 g/dL (31.0 - 36.0) RDW 19.9 H % (11.5 - 14.8) PLATELETS 315 10/uL (150 - 450) MPV 9.7 fL (7.4 - 10.4) NEUT 66.0 % (37.0 - 80.0) LYMPH 16.4 L % (25.0 - 40.0) MONO 12.6 H % (3.0 - 8.0) EOS 2.7 % (0.0 - 7.0) BASO 1.3 % (0.0 - 2.0) %IG 1.0 H % (0.0 - 0.0) %NRBC 0.3 H % (0.0 - 0.0) #NEUT 5.15 10/uL (2.00 - 6.90) #LYMPH 1.28 10/uL (0.60 - 3.40) #MONO 0.98 H 10/uL (0.00 - 0.90) #EOS 0.21 10/uL (0.00 - 0.70) #BASO 0.10 10/uL (0.00 - 0.20) #IG 0.08 10/uL (0.00 - 0.10) #NRBC 0.02 H 10/uL (0.00 - 0.00) MANUAL DIFF NOT INDICATED RBC MORPH NOT INDICATEDCMP: (DEB: 01/04/2021 15:40) ( MsgRcvd 01/04/2021 16:19) Final results Test Result Flag Units (Reference) COMPREHENSIVE METABOLIC PANEL COMPREHENSIVE METABOLIC PANEL SODIUM 136 mEq/L (134 - 153) POTASSIUM 5.0 mEq/L (3.6 - 5.0) CHLORIDE 104 mEq/L ( 98 - 107) CO2 22 MEQ/L (22 - 30) 4 Clinical Report - Physicians/Mid Levels [facility] Emerg ency Department [address] [place] [address] Phone #: ext- [phone] 01/04/2021 13:35 Patient: ENID WANG Sex: M : 1965 Age: 55y GLUCOSE 81 MG/DL (70 - 99) BUN 8 MG/DL (7 - 21) CREATININE 0.7 MG/DL (0.7 - 1.5) BUN/CREAT 11 (8 - 27) TOTAL PROTEIN 6.0 L G/DL (6.3 - 8.2) ALBUMIN 3.3 L G/DL (3.9 - 5.0) GLOBULIN 2.7 GM/DL (2.4 - 3.2) A/G RATIO 1.2 (0.8 - 2.0) CALCIUM 8.5 MG/DL (8.4 - 10.2) TOTAL BILI <0.7 MG/DL (0.2 - 1.3) ALKALINE PHOS 87 U/L (38 - 126) SGOT/AST 39 U/L (5 - 40) SGPT/ALT 21 U/L (7 - 56) ANION GAP 10.0 mmol/L (8.0 - 16.0) AGE 55 yrs NON-AA GFR >60 mL/min AFR AMER GFR >60 mL/min Male GFR Interprentation 20-49 yrs >60 mL/min Normal 50-59 yrs >56 mL/min Normal 60-69 yrs >49 mL/min Normal 70-79yrs >42 mL/min Normal 80 and above >35 mL/min Normal Female GFR Interpretation 20-39 yrs >60 mL/min Normal 40-49 yrs >58 mL/min Normal 50-59 yrs >51 mL/min Normal 60-69 yrs >45 mL/min Normal 70-79 yrs >39 mL/min Normal 80 and above >32 mL/min Normal PT/INR: (DEB: 01/04/2021 15:07) ( [facility] 01/04/2021 15:49) Canceled PT/PTT: (DEB: 01/04/2021 15:40) ( [facility] 01/04/2021 16:03) Final results Test Result Flag Units (Reference) PROTIME 12.3 SECONDS (11.0 - 15.5) INR 0.87 L (0.93 - 1.23) PTT 30.4 SECONDS (24.8 - 36.7) \\BLDo\\INR INTERPRETATION\\BLDx\\ Therapeutic range for Coumadin and related oral anticoagulants. -International Normalized Ratio (INR): 2.0 - 3.0 for Venous Thrombosis, Pulmonary Embolus, Tissue heart valves, Acute IA Atrial Fibrillation, Valvular heart disease and recurrent Systemic Embolism. -International Normalized Ratio (INR): 2.5 - 3.5 for Mechanical Prosthetic valve. LDH: (DEB: 01/04/2021 15:40) ( [facility] 01/04/[facility]21 16:16) Final results Test Result Flag Units (Reference) LDH 176 U/L (135 - 225) Lactic Acid: (DEB: 01/04/2021 15:40) ( [facility] 01/04/2021 16:02) Final results Test Result Flag Units (Reference) LACTIC ACID 2.7 H MMOL/L (0.2 - 2.2).PROGRESS AND PROCEDURESCourse of Care: pt is a 55 year old female who presents to the ED for evaluation of his abnormal lab. ptdenies any complaints. He was covered in bed bugs. Pt was derobed. He took a shower. On exam,he has multiples areas of irritation. no infection. labs show iron deficiency anemia. he is not orthostatic.Pt is not taking his iron pills. His guaiac is negative. I spoke to his sister and brother in law. they state 5 Clinical Report - Physicians/Mid Levels [facility] Emergency Department [address] [place] [address] Phone #: ext- [phone] 01/04/2021 13:35 Patient: ENID WANG Sex: M : 1965 Age: 55y that pt does not take care of himself and this has been an ongoing issue for quite some time. I informed family of the plan. Charge nurse called the [facility]. We will fax pt's information and they will follow up. family is trying to get pt deemed incompetent so they can make decisions. I sent rx to pharmacy for iron pills. Pt instructed to return if worse or any new symptoms. Patient/family counseled. Disposition: Discharged. Condition: good and stable.CLINICAL IMPRESSION Iron deficiency anemia. Poor Hygeine.INSTRUCTIONS No strenuous activity. (Please call [facility] at [phone] for assistance with your living condition. I sent a prescription to your pharmacy for iron. please take as instructed, once daily. You will need repeat blood work in 2 weeks. Please call your doctor for a follow up appt tomorrow.). Warnings: Further evaluation is necessary. GENERAL WARNINGS: Return or contact your physician immediately if your condition worsens or changes unexpectedly, if not improving as expected, or if other problems arise. Your Current Medications: Your current home medications have been reviewed. CONTINUE TAKING THE FOLLOWING MEDICATIONS: Albuterol Sulfate HFA Inhalation : prn. Aspirin Oral : Tablet Chewable 81 mg, daily. Biktarvy Oral : Tablet 50-200-25 mg, daily. Ferrous Sulfate Oral : Tablet 325 (65 Fe) mg, daily. Protonix Oral : 40 mg daily. Sucralfate Oral : Tablet 1 gm, 4x a day. Prescription Medications: Iron (ferrous sulfate) 325 mg (65 mg iron) tablet Take 1 tablet once a day -- Dispense 30 tablet. Refills: 0. Substitution permitted. Pharmacy - [id number] - [id number] [facility] ; [place], [place] [id number]. . Follow-up: Follow up with your doctor Tuesday even if well. Call for an appointment. Reason for referral: evaluation. 6 Clinical Report - Physicians/Mid Levels [facility] Emergency Department [address] [place] [address] Phone #: [phone] 01/04/2021 13:35 Patient: ENID WANG Sex: M : 1965 Age: 55y Summary of care provided to patient via paper. Understanding of the discharge instructions verbalized by patient.(Electronically signed by Rocio Bynum MD 01/04/2021 20:47) Name Value Range Interpretation Code Description Data Daisy rce(s) Supporting Document(s) ID Date Data Source [id number] 01/04/2021 05:13:00 PM [facility] Name Value Range Interpretation Code Description Data Daisy rce(s) Supporting Document(s) OCCULT BLOOD NEGATIVE NORMAL: NEGATIVE [facility] OCCULT BLOOD REENTER NEGATIVE NORMAL: NEGATIVE [facility] { HEMOCCULT LOT # [id number] ){ LOT EXP DATE 04-06-21 ){ PROCEDURAL CONTROL POS/NEG VALID ) ID Date Data Source [id number] 01/04/2021 04:53:00 PM [facility] Name Value Range Interpretation Code Description Data Daisy rce(s) Supporting Document(s) TROPONIN T <0.01 NG/ML 0.00 - 0.10 [facility] ospital TROPONIN T0.1 ng/ml Recommended as the c linical threshold value forTroponin T. ID Date Data Source [id number] 01/04/2021 04:44:00 PM [facility] Name Value Range Interpretation Code Description Data Daisy rce(s) Supporting Document(s) Magnesium [Mass/volume] in Serum or Plasma 1.8 MG/DL 1.7 - 2.2 [facility] ID Date Data Source [id number] 01/04/2021 04:19:00 PM EST [facility] Name Value Range Interpretation Code Description Data Daisy rce(s) Supporting Document(s) COMPREHENSIVE METABOLIC PANEL [facility] COMPREHENSIVE METABOLIC PANEL Sodium [Moles/volume] in Serum or Plasma 136 mEq/L 134 - 153 [facility] Potassium [Moles/volume] in Serum or Plasma 5.0 mEq/L 3.6 - 5.0 [facility] Chloride [Moles/volume] in Serum or Plasma 104 mEq/L 98 - 107 [facility] Carbon dioxide, total [Moles/volume] in Serum or Plasma 22 MEQ/L 22 - 30 [facility] Glucose [Mass/volume] in Serum or Plasma 81 MG/DL 70 - 99 [facility] BUN 8 MG/DL 7 - 21 [facility] al Creatinine [Mass/volume] in Serum or Plasma 0.7 MG/DL 0.7 - 1.5 [facility] BUN/CREAT 11 8 - 27 [facility] al Protein [Mass/volume] in Serum or Plasma 6.0 G/DL 6.3 - 8.2 L [facility] Albumin [Mass/volume] in Serum or Plasma 3.3 G/DL 3.9 - 5.0 L [facility] Globulin [Mass/volume] in Serum by calculation 2.7 GM/DL 2.4 - 3.2 [facility] A/G RATIO 1.2 0.8 - 2.0 [facility] Calcium [Mass/volume] in Serum or Plasma 8.5 MG/DL 8.4 - 10.2 [facility] Bilirubin.total [Mass/volume] in Serum or Plasma <0.7 MG/DL 0.2 - 1.3 [facility] Alkaline phosphatase [Enzymatic activity/volume] in Serum or Plasma 87 U/L 38 - 126 [facility] Aspartate aminotransferase [Enzymatic activity/volume] in Serum or Plasma 39 U/L 5 - 40 [facility] Alanine aminotransferase [Enzymatic activity/volume] in Seru m or Plasma 21 U/L 7 - 56 [facility] Anion gap 3 in Serum or Plasma 10.0 mmol/L 8.0 - 16.0 [facility] AGE 55 yrs [facility] al NON-AA GFR >60 mL/min [facility] ital AFR AMER GFR >60 mL/min [facility] Ho spital Male GFR In terprentation 20-49 yrs >60 mL/min Normal 50-59 yrs >56 mL/min Normal 60-69 yrs >49 mL/min Normal 70-79yrs >42 mL/min Normal 80 and above >35 mL/min Normal Female GFR Interpretation 20-39 yrs >60 mL/min Normal 40-49 yrs >58 mL/min Normal 50-59 yrs >51 mL/min Normal 60-69 yrs >45 mL/min Normal 70-79 yrs >39 mL/min Normal 80 and above >32 mL/min Normal ID Date Data Source [id number] 01/04/2021 04:16:00 PM [facility] Name Value Range Interpretation Code Description Data Daisy rce(s) Supporting Document(s) Lactate dehydrogenase [Enzymatic activity/volume] in Serum o r Plasma 176 U/L 135 - 225 [facility] ID Date Data Source [id number] 01/04/2021 04:02:00 PM [facility] Name Value Range Interpretation Code Description Data Daisy rce(s) Supporting Document(s) Prothrombin time (PT) 12.3 SECONDS 11.0 - 15.5 [facility] INR in Platelet poor plasma by Coagulation assay 0.87 0.93 - 1. 23 L [facility] aPTT in Blood by Coagulation assay 30.4 SECONDS 24.8 - 36.7 [facility] \\BLDo\\INR INTERPRETATION\\BLDx\\ Therapeutic range for Coumadin and related oral anticoagulants. - International Normalized Ratio (INR): 2.0 - 3.0 for Venous Thrombosis, Pulmonary Embolus, Tissue heart valves, Acute IA Atrial Fibrillation, Valvular heart disease and recurrent Systemic Embolism. - International Normalized Ratio (INR): 2.5 - 3.5 for Mechanical Prosthetic valve. ID Date Data Source [id number] 01/04/2021 04:02:00 PM [facility] Name Value Range Interpretation Code Description Data Daisy rce(s) Supporting Document(s) Lactate [Moles/volume] in Serum or Plasma 2.7 MMOL/L 0.2 - 2.2 H [facility] ID Date Data Source [id number] 01/04/2021 03:56:00 PM EST [facility] Name Value Range Interpretation Code Description Data Daisy rce(s) Supporting Document(s) CBC W/AUTOMATED DIFF [facility] COMPLETE BLOOD COUNT Leukocytes [#/volume] in Blood by Automated count 7.8 10^3/uL 4.2 - 1 1.0 [facility] Erythrocytes [#/volume] in Blood by Automated count 2.36 10^6/uL 4. 50 - 6.30 L [facility] Hemoglobin [Mass/volume] in Blood 7.6 g/dL 14.0 - 16.0 L [facility] Hematocrit [Volume Fraction] of Blood by Automated count 24.1 % 4 1.0 - 51.0 L [facility] Erythrocyte mean corpuscular volume [Entitic volume] b y Automated count 102.1 fL 80.0 - 94.0 H [facility] Erythrocyte mean corpuscular hemoglobin [Entitic mass] by Automated count 32.2 pg 27.0 - 34.0 [facility] Erythrocyte mean corpuscular hemoglobin concentration [Mass/volume] by Automated count 31.5 g/dL 31.0 - 36.0 [facility] Erythrocyte distribution width [Ratio] by Automated count 19.9 % 11.5 - 14.8 H [facility] Platelets [#/volume] in Blood by Automated count 315 10^3/uL 150 - 45 0 [facility] Platelet mean volume [Entitic volume] in Blood by Automated count 9.7 fL 7.4 - 10.4 [facility] Neutrophils/100 leukocytes in Blood by Automated count 66.0 % 37. 0 - 80.0 [facility] Lymphocytes/100 leukocytes in Blood by Manual count 16.4 % 25.0 - 40.0 L [facility] Monocytes/100 leukocytes in Blood by Automated count 12.6 % 3.0 - 8.0 H [facility] Eosinophils/100 leukocytes in Blood by Automated count 2.7 % 0.0 - 7.0 [facility] Basophils/100 leukocytes in Blood by Automated count 1.3 % 0.0 - 2.0 [facility] %IG 1.0 % 0.0 - 0.0 [facility] %NRBC 0.3 % 0.0 - 0.0 [facility] Neutrophils [#/volume] in Blood by Automated count 5.15 10^3/uL 2.00 - 6.90 [facility] Lymphocytes [#/volume] in Blood by Automated count 1.28 10^3/uL 0.60 - 3.40 [facility] Monocytes [#/volume] in Blood by Automated count 0.98 10^3/uL 0.00 - 0.90 H [facility] Eosinophils [#/volume] in Blood by Automated count 0.21 10^3/uL 0.00 - 0.70 [facility] Basophils [#/volume] in Blood by Automated count 0.10 10^3/uL 0.00 - 0.20 [facility] #IG 0.08 10^3/uL 0.00 - 0.10 [facility] ospital #NRBC 0.02 10^3/uL 0.00 - 0.00 H [facility] MANUAL DIFF NOT INDICATED [facility] RBC MORPH NOT INDICATED [facility] spital ID Date Data Source [id number] 01/01/2021 12:00:00 PM EST [facility] ([facility]) Name Value Range Interpretation Code Description Data Daisy rce(s) Supporting Document(s) ferritin 62 NG/mL 26-388 Ferritin [place] ([facility]) ID Date Data Source [id number] 01/01/2021 12:00:00 PM EST [facility] ([facility]) Name Value Range Interpretation Code Description Data Daisy rce(s) Supporting Document(s) vitamin B12 level 426 pg/mL Vitamin B12 Level [place] ([facility]) folate 8.1 NG/mL Folate [place] ([facility]) ID Date Data Source [id number] 01/01/2021 12:00:00 PM EST [facility] ([facility]) Name Value Range Interpretation Code Description Data Daisy rce(s) Supporting Document(s) total iron binding capacity 338 ug/dL 250-450 Total Ir on Binding Capacity [facility] ([facility]) iron (fe) 24 ug/dL 65-175 Below low normal Iron (Fe) [place] ( [facility]) percent saturation 7.1 % 19.7-50.0 Below low normal Percent Sat uration [place] ([facility]) ID Date Data Source [id number] 01/01/2021 12:00:00 PM EST [place] ([facility]) Name Value Range Interpretation Code Description Data Daisy rce(s) Supporting Document(s) glucose, fasting 61 mg/dL 70-100 Below low normal Glucose, Fast ing [place] ([facility]) blood urea nitrogen 8 mg/dL 7-18 Blood Urea Nitro gen [place] ([facility]) creatinine for GFR 0.65 mg/dL 0.70-1.30 Below low normal Creatinine for GFR [place] ([facility]) glomerular filtration rate > 60.0 >56 Glomerula r Filtration Rate [place] ([facility]) sodium level 134 mEq/L 136-145 Below low normal Sodium Level A[facility] NA ([facility]) potassium serum 5.1 mEq/L 3.5-5.1 Potassium Serum [facility] NA ([facility]) carbon dioxide level 26 mEq/L 21-32 Carbon Dioxide Level [place] ([facility]) chloride level 101 mEq/L 98-107 Chloride Level [place] ([facility]) anion gap 7 mEq/L 8-16 Below low normal Anion Gap [facility] ( [facility]) ALT/SGPT 31 U/L 12-78 ALT/SGPT [place] ([facility]) calcium level 8.3 mg/dL 8.5-10.1 Below low normal Calcium Level AT [facility]) AST/SGOT 51 U/L 7-37 Above high normal AST/SGOT [place] ([facility]) bilirubin,total < 0.1 0.2-1.0 Below low normal Bilirubin,tota l [facility]) total protein 6.3 gm/dL 6.4-8.2 Below low normal Total Protein AT [place] ([facility]) alkaline phosphatase 104 U/L 45-117 Alkaline Phosph atase [facility] ([facility]) albumin 2.9 gm/dL 3.2-5.2 Below low normal Albumin [facility] ( [facility]) albumin/globulin ratio Albumin/globu fermin Ratio [place] ([facility]) ID Date Data Source [id number] 01/01/2021 12:00:00 PM EST [facility] ([facility]) Name Value Range Interpretation Code Description Data Daisy rce(s) Supporting Document(s) red blood count 2.47 10 4.30-6.10 Below low normal Red Blood Coun t [place] ([facility]) white blood count 9.6 10 4.0-10.0 White Blood Count [place] ([facility]) hemoglobin 7.7 g/dL 13.5-17.5 Below low normal Hemoglobin [place] ( [facility]) hematocrit 26.0 % 42.0-52.0 Below low normal Hematocrit [place] ( [facility]) mean corpuscular volume 105.3 fL 80.0-96.0 Above high normal Mean Corpuscular Volume [place] ([facility]) mean corpuscular HGB conc 29.6 g/dL 32.0-36.5 Below low rocio l Mean Corpuscular HGB Conc [place] ([facility]) mean corpuscular hemoglobin 31.2 pg 27.0-33.0 Mean Cor puscular Hemoglobin [place] ([facility]) red cell distribution width 20.8 % 11.5-14.5 Above high no rmal Red Cell Distribution Width [facility] ([facility]) neutrophils % 74.9 % 36.0-66.0 Above high normal Neutrophils % [facility] ([facility]) platelet count, automated 320 10 150-450 Platelet C ount, Automated [facility] ([facility]) lymph % 8.2 % 24.0-44.0 Below low normal Lymph % [place] ( [facility]) eos % 1.2 % 0.0-3.0 Eos % [place] ([facility]) mono % 13.9 % 2.0-8.0 Above high normal Branch % [facility] ([facility]) nucleated red blood cell % 0.0 % 0-0 Nucleated Red Blood Cell % [facility] ([facility]) baso % 1.2 % 0.0-1.0 Above high normal Baso % [facility] ([facility]) immature granulocyte % 0.6 % 0-3.0 Immature Gran ulocyte % [facility] ([facility]) lymph # 0.8 10 1.5-5.0 Below low normal Lymph # [facility] ( [facility]) mono # 1.3 10 0.0-0.8 Above high normal Branch # [facility] ([facility]) neutrophils # 7.2 10 1.5-8.5 Neutrophils # [facility] ( [facility]) baso # 0.1 10 0.0-0.2 Baso # [facility] ([facility]) eos # 0.1 10 0.0-0.5 Eos # [facility] ([facility]) ID Date Data Source [id number] 01/01/2021 12:00:00 PM EST [facility] ([facility]) Name Value Range Interpretation Code Description Data Daisy rce(s) Supporting Document(s) ferritin 62 NG/mL 26-388 Ferritin [place] ([facility]) ID Date Data Source [id number] 01/01/2021 12:00:00 PM EST [facility] ([facility]) Name Value Range Interpretation Code Description Data Daisy rce(s) Supporting Document(s) vitamin B12 level 426 pg/mL Vitamin B12 Level [facility] ([facility]) folate 8.1 NG/mL Folate [facility] ([facility]) ID Date Data Source [id number] 01/01/2021 12:00:00 PM EST [facility] ([facility]) Name Value Range Interpretation Code Description Data Daisy rce(s) Supporting Document(s) iron (fe) 24 ug/dL 65-175 Below low normal Iron (Fe) [facility] ( [facility]) total iron binding capacity 338 ug/dL 250-450 Total Ir on Binding Capacity [place] ([facility]) percent saturation 7.1 % 19.7-50.0 Below low normal Percent Sat uration [place] ([facility]) ID Date Data Source [id number] 01/01/2021 12:00:00 PM EST [place] ([facility]) Name Value Range Interpretation Code Description Data Daisy rce(s) Supporting Document(s) glucose, fasting 61 mg/dL 70-100 Below low normal Glucose, Fast ing [place] ([facility]) blood urea nitrogen 8 mg/dL 7-18 Blood Urea Nitro gen [place] ([facility]) creatinine for GFR 0.65 mg/dL 0.70-1.30 Below low normal Creatinine for GFR [place] ([facility]) glomerular filtration rate > 60.0 >56 Glomerula r Filtration Rate [place] ([facility]) sodium level 134 mEq/L 136-145 Below low normal Sodium Level [facility] NA ([facility]) potassium serum 5.1 mEq/L 3.5-5.1 [facility]assium [facility] chloride level 101 mEq/L 98-107 Chloride Level [place] ([facility]) carbon dioxide level 26 mEq/L 21-32 Carbon Dioxide Level [place] ([facility]) anion gap 7 mEq/L 8-16 Below low normal Anion Gap [place] ( [facility]) calcium level 8.3 mg/dL 8.5-10.1 Below low normal Calcium Level AT [facility]) ALT/SGPT 31 U/L 12-78 ALT/SGPT [place] ([facility]) AST/SGOT 51 U/L 7-37 Above high normal AST/SGOT [place] ([facility]) bilirubin,total < 0.1 0.2-1.0 Below low normal Bilirubin,tota l [facility]) alkaline phosphatase 104 U/L 45-117 Alkaline Phosph atase [facility] ([facility]) albumin 2.9 gm/dL 3.2-5.2 Below low normal Albumin [place] ( [facility]) total protein 6.3 gm/dL 6.4-8.2 Below low normal Total Protein AT [facility] ([facility]) albumin/globulin ratio Albumin/globu fermin Ratio [place] ([facility]) ID Date Data Source [id number] 01/01/2021 12:00:00 PM EST [place] ([facility]) Name Value Range Interpretation Code Description Data Daisy rce(s) Supporting Document(s) white blood count 9.6 10 4.0-10.0 White Blood Count [place] ([facility]) red blood count 2.47 10 4.30-6.10 Below low normal Red Blood Coun t [place] ([facility]) hemoglobin 7.7 g/dL 13.5-17.5 Below low normal Hemoglobin [place] ( [facility]) mean corpuscular volume 105.3 fL 80.0-96.0 Above high normal Mean Corpuscular Volume [place] ([facility]) hematocrit 26.0 % 42.0-52.0 Below low normal Hematocrit [place] ( [facility]) mean corpuscular HGB conc 29.6 g/dL 32.0-36.5 Below low rocio l Mean Corpuscular HGB Conc [place] ([facility]) mean corpuscular hemoglobin 31.2 pg 27.0-33.0 Mean Cor puscular Hemoglobin [place] ([facility]) platelet count, automated 320 10 150-450 Platelet C ount, Automated [facility] ([facility]) red cell distribution width 20.8 % 11.5-14.5 Above high no rmal Red Cell Distribution Width [facility] ([facility]) lymph % 8.2 % 24.0-44.0 Below low normal Lymph % [facility] ( [facility]) neutrophils % 74.9 % 36.0-66.0 Above high normal Neutrophils % A [facility] ([facility]) mono % 13.9 % 2.0-8.0 Above high normal Branch % [facility] ([facility]) baso % 1.2 % 0.0-1.0 Above high normal Baso % [facility] ([facility]) immature granulocyte % 0.6 % 0-3.0 Immature Gran ulocyte % [facility] ([facility]) eos % 1.2 % 0.0-3.0 Eos % [facility] ([facility]) neutrophils # 7.2 10 1.5-8.5 Neutrophils # [facility] ( [facility]) nucleated red blood cell % 0.0 % 0-0 Nucleated Red Blood Cell % [facility] ([facility]) mono # 1.3 10 0.0-0.8 Above high normal Branch # [facility] ([facility]) lymph # 0.8 10 1.5-5.0 Below low normal Lymph # [facility] ( [facility]) eos # 0.1 10 0.0-0.5 Eos # [facility] ([facility]) baso # 0.1 10 0.0-0.2 Baso # [facility] ([facility]) ID Date Data Source [id number] 01/01/2021 12:00:00 PM EST [facility] ([facility]) Name Value Range Interpretation Code Description Data Daisy rce(s) Supporting Document(s) ferritin 62 NG/mL 26-388 Ferritin [place] ([facility]) ID Date Data Source [id number] 01/01/2021 12:00:00 PM EST [facility] ([facility]) Name Value Range Interpretation Code Description Data Daisy rce(s) Supporting Document(s) vitamin B12 level 426 pg/mL Vitamin B12 Level [facility] ([facility]) folate 8.1 NG/mL Folate [facility] ([facility]) ID Date Data Source [id number] 01/01/2021 12:00:00 PM EST [facility] ([facility]) Name Value Range Interpretation Code Description Data Daisy rce(s) Supporting Document(s) iron (fe) 24 ug/dL 65-175 Below low normal Iron (Fe) [facility] ( [facility]) total iron binding capacity 338 ug/dL 250-450 Total Ir on Binding Capacity [place] ([facility]) percent saturation 7.1 % 19.7-50.0 Below low normal Percent Sat uration [place] ([facility]) ID Date Data Source [id number] 01/01/2021 12:00:00 PM EST [place] ([facility]) Name Value Range Interpretation Code Description Data Daisy rce(s) Supporting Document(s) glucose, fasting 61 mg/dL 70-100 Below low normal Glucose, Fast ing [place] ([facility]) blood urea nitrogen 8 mg/dL 7-18 Blood Urea Nitro gen [place] ([facility]) glomerular filtration rate > 60.0 >56 Glomerula r Filtration Rate [place] ([facility]) creatinine for GFR 0.65 mg/dL 0.70-1.30 Below low normal Creatinine for GFR [place] ([facility]) potassium serum 5.1 mEq/L 3.5-5.1 Potassium Serum [facility] NA ([facility]) sodium level 134 mEq/L 136-145 Below low normal [facility] chloride level 101 mEq/L 98-107 Chloride Level [place] ([facility]) anion gap 7 mEq/L 8-16 Below low normal Anion Gap [facility] ( [facility]) calcium level 8.3 mg/dL 8.5-10.1 Below low normal Calcium Level AT [facility]) AST/SGOT 51 U/L 7-37 Above high normal AST/SGOT [place] ([facility]) carbon dioxide level 26 mEq/L 21-32 Carbon Dioxide Level [place] ([facility]) bilirubin,total < 0.1 0.2-1.0 Below low normal Bilirubin,tota l [place] ([facility]) ALT/SGPT 31 U/L 12-78 ALT/SGPT [place] ([facility]) alkaline phosphatase 104 U/L 45-117 Alkaline Phosph atase [place] ([facility]) total protein 6.3 gm/dL 6.4-8.2 Below low normal Total Protein AT [place] ([facility]) albumin/globulin ratio Albumin/globu fermin Ratio [facility] ([facility]) albumin 2.9 gm/dL 3.2-5.2 Below low normal Albumin [facility] ( [facility]) ID Date Data Source [id number] 01/01/2021 12:00:00 PM EST [facility] ([facility]) Name Value Range Interpretation Code Description Data Daisy rce(s) Supporting Document(s) white blood count 9.6 10 4.0-10.0 White Blood Count [place] ([facility]) hemoglobin 7.7 g/dL 13.5-17.5 Below low normal Hemoglobin [place] ( [facility]) red blood count 2.47 10 4.30-6.10 Below low normal Red Blood Coun t [place] ([facility]) mean corpuscular hemoglobin 31.2 pg 27.0-33.0 Mean Cor puscular Hemoglobin [facility] ([facility]) hematocrit 26.0 % 42.0-52.0 Below low normal Hematocrit [place] ( [facility]) mean corpuscular volume 105.3 fL 80.0-96.0 Above high normal Mean Corpuscular Volume [place] ([facility]) platelet count, automated 320 10 150-450 Platelet C ount, Automated [facility] ([facility]) red cell distribution width 20.8 % 11.5-14.5 Above high no rmal Red Cell Distribution Width [facility] ([facility]) mean corpuscular HGB conc 29.6 g/dL 32.0-36.5 Below low rocio l Mean Corpuscular HGB Conc [facility] ([facility]) neutrophils % 74.9 % 36.0-66.0 Above high normal Neutrophils % A [facility] ([facility]) lymph % 8.2 % 24.0-44.0 Below low normal Lymph % [facility] ( [facility]) mono % 13.9 % 2.0-8.0 Above high normal Branch % [place] ([facility]) immature granulocyte % 0.6 % 0-3.0 Immature Gran ulocyte % [facility] ([facility]) baso % 1.2 % 0.0-1.0 Above high normal Baso % [facility] ([facility]) eos % 1.2 % 0.0-3.0 Eos % [facility] ([facility]) lymph # 0.8 10 1.5-5.0 Below low normal Lymph # [facility] ( [facility]) neutrophils # 7.2 10 1.5-8.5 Neutrophils # [facility] ( [facility]) nucleated red blood cell % 0.0 % 0-0 Nucleated Red Blood Cell % [facility] ([facility]) mono # 1.3 10 0.0-0.8 Above high normal Branch # [facility] ([facility]) baso # 0.1 10 0.0-0.2 Baso # [facility] ([facility]) eos # 0.1 10 0.0-0.5 Eos # [facility] ([facility]) ID Date Data Source [id number] 01/01/2021 12:00:00 PM EST [facility] ([facility]) Name Value Range Interpretation Code Description Data Daisy rce(s) Supporting Document(s) ferritin 62 NG/mL 26-388 Ferritin [facility] ([facility]) ID Date Data Source [id number] 01/01/2021 12:00:00 PM EST [facility] [facility] Name Value Range Interpretation Code Description Data Daisy rce(s) Supporting Document(s) vitamin B12 level 426 pg/mL Vitamin B12 Level [facility] ([facility]) folate 8.1 NG/mL Folate [facility] ([facility]) ID Date Data Source [id number] 01/01/2021 12:00:00 PM EST [facility] ([facility]) Name Value Range Interpretation Code Description Data Daisy rce(s) Supporting Document(s) iron (fe) 24 ug/dL 65-175 Below low normal Iron (Fe) [place] ( [facility]) total iron binding capacity 338 ug/dL 250-450 Total Ir on Binding Capacity [place] ([facility]) percent saturation 7.1 % 19.7-50.0 Below low normal Percent Sat uration [place] ([facility]) ID Date Data Source [id number] 01/01/2021 12:00:00 PM EST [place] ([facility]) Name Value Range Interpretation Code Description Data Daisy rce(s) Supporting Document(s) creatinine for GFR 0.65 mg/dL 0.70-1.30 Below low normal Creatinine for GFR [place] ([facility]) glucose, fasting 61 mg/dL 70-100 Below low normal Glucose, Fast ing [place] ([facility]) blood urea nitrogen 8 mg/dL 7-18 Blood Urea Nitro gen [place] ([facility]) potassium serum 5.1 mEq/L 3.5-5.1 Potassium Serum ATHE NA ([facility]) glomerular filtration rate > 60.0 >56 Glomerula r Filtration Rate [place] ([facility]) sodium level 134 mEq/L 136-145 Below low normal [facility] chloride level 101 mEq/L 98-107 Chloride Level [place] ([facility]) anion gap 7 mEq/L 8-16 Below low normal Anion Gap [place] ( [facility]) carbon dioxide level 26 mEq/L 21-32 Carbon Dioxide Level [facility]) ALT/SGPT 31 U/L 12-78 ALT/SGPT [place] ([facility]) AST/SGOT 51 U/L 7-37 Above high normal AST/SGOT [place] ([facility]) calcium level 8.3 mg/dL 8.5-10.1 Below low normal Calcium Level AT [facility]) alkaline phosphatase 104 U/L 45-117 Alkaline Phosph atase [place] ([facility]) bilirubin,total < 0.1 0.2-1.0 Below low normal Bilirubin,tota l [facility]) total protein 6.3 gm/dL 6.4-8.2 Below low normal Total Protein AT [facility] ([facility]) albumin/globulin ratio Albumin/globu fermin Ratio [place] ([facility]) albumin 2.9 gm/dL 3.2-5.2 Below low normal Albumin [place] ( [facility]) ID Date Data Source [id number] 01/01/2021 12:00:00 PM EST [place] ([facility]) Name Value Range Interpretation Code Description Data Daisy rce(s) Supporting Document(s) white blood count 9.6 10 4.0-10.0 White Blood Count [place] ([facility]) red blood count 2.47 10 4.30-6.10 Below low normal Red Blood Coun t [place] ([facility]) hematocrit 26.0 % 42.0-52.0 Below low normal Hematocrit [place] ( [facility]) hemoglobin 7.7 g/dL 13.5-17.5 Below low normal Hemoglobin [place] ( [facility]) mean corpuscular HGB conc 29.6 g/dL 32.0-36.5 Below low rocio l Mean Corpuscular HGB Conc [place] ([facility]) mean corpuscular volume 105.3 fL 80.0-96.0 Above high normal Mean Corpuscular Volume [place] ([facility]) mean corpuscular hemoglobin 31.2 pg 27.0-33.0 Mean Cor puscular Hemoglobin [place] ([facility]) red cell distribution width 20.8 % 11.5-14.5 Above high no rmal Red Cell Distribution Width [place] ([facility]) platelet count, automated 320 10 150-450 Platelet C ount, Automated [place] ([facility]) mono % 13.9 % 2.0-8.0 Above high normal Branch % [place] ([facility]) neutrophils % 74.9 % 36.0-66.0 Above high normal Neutrophils % [place] ([facility]) lymph % 8.2 % 24.0-44.0 Below low normal Lymph % [place] ( [facility]) eos % 1.2 % 0.0-3.0 Eos % [place] ([facility]) immature granulocyte % 0.6 % 0-3.0 Immature Gran ulocyte % [place] ([facility]) baso % 1.2 % 0.0-1.0 Above high normal Baso % [place] ([facility]) nucleated red blood cell % 0.0 % 0-0 Nucleated Red Blood Cell % [place] ([facility]) lymph # 0.8 10 1.5-5.0 Below low normal Lymph # [place] ( [facility]) neutrophils # 7.2 10 1.5-8.5 Neutrophils # [place] ( [facility]) mono # 1.3 10 0.0-0.8 Above high normal Branch # [place] ([facility]) baso # 0.1 10 0.0-0.2 Baso # [place] ([facility]) eos # 0.1 10 0.0-0.5 Eos # [place] ([facility]) ID Date Data Source [id number] 11/12/2020 09:38:00 [place] [address] RESPIRATORY CARE REPORT ==== ---------NAME------- NUMBER SEX AGE ADMIT DISC. XRAY# F/C [facility] ENID Le [id number] M 55 11/11/20 11/12/20 [id number] [id number] E/R DATE OF : 1965 M/R# [id number] #: [id number] TR-05 LOCATION: EMERGENCY DEPT EKG [id number] COMP LETE:11/12/20 08:18 ED 22530 PHYSICIAN: ANGLE BA CH Name Value Range Interpretation Code Description Data Daisy rce(s) Supporting Document(s) ID Date Data Source [id number] 11/12/2020 01:34:00 PM EST [facility] [address] [place] [address] PHONE: [phone] FAX: [phone] Name .................. : KENTON Le Acct Number.................. : [id number] ROOM. ................. : [facility] MR Number ................... : [id number] Stay type ............. : E/R Discharge Date......... ... : Admit Date ......... : 11/11/20 Admit Phys .................... : ANGLE SAVANNAH Date of ....... : 1965 Family Phys ................... : NON STAFF Phone .................. : [phone] Age ................................ : 55 Film# .................. .:[id number] Sex ................................. : M Unsigned transcriptions are preliminary reports and do not represent a medical or legal document CHEST 2 VIEWS [id number] COMPLETE:11/11/20 17:26 GABRIEL 1502 Reason(s): ? GI Bleed/gastric ulcer CHEST X-RAY: 2-VIEWS INDICATION: GI bleed/gastric ulcer. FINDINGS: There is extensive scarring identified at the left upper lobe. Correlation with previous chest radiographs would be helpful. No definite focal infiltrate is identified. The cardiac silhouette appears unremarkable. IMPRESSION: Left upper lobe scarring. No acute pulmonary findings. Examination dictated by MIKAELA Mock. Examination was reviewed with Gagandeep Anand MD, radiologist at the time of this dictation. Electronically Reviewed and Signed By Gagandeep Anand M.D. , 11/12/20 13:34, HIY Transcribe Initials: DZ , Transcribe Date: 11/11/20 20:15, Dictation Date: Copy for: NAGI LOPEZ via fax Copy for: ANGLE Bennett via fax Copy for: EMERGENCY DEPT via modem Copy for: 710 MED REC DISCHARGED Page 1 of 1 Name Value Range Interpretation Code Description Data Daisy rce(s) Supporting Document(s) ID Date Data Source [id number] 11/12/2020 01:33:00 [place] [address] PHONE: [phone] FAX: [phone] Name .................. : KENTON Le Acct Number.................. : [id number] ROOM. ................. : TR-05 Number ................... : [id number] Stay type ............. : E/R Discharge Date......... ... : Admit Date ......... : 11/11/20 Admit Phys .................... : ANGLE SAVANNAH Date of ....... : 1965 Family Phys ................... : NON STAFF Phone .................. : [phone] Age ................................ : 55 Film# .................. .:[id number] Sex ................................. : M Unsigned transcriptions are preliminary reports and do not represent a medical or legal document CT ABD & PELVIS W/ IV ONLY [id number] COMPLETE:11/11/20 17:26 GABRIEL 1501 Reason(s): GI bleed CT SCAN OF THE ABDOMEN AND PELVIS WITH CONTRAST: INDICATION: GI bleed. FINDINGS: The lung bases show COPD. No focal infiltrate or consolidation is identified. No discrete nodule or infiltrate is identified. The heart appears unremarkable. The liver, gallbladder, spleen, adrenal glands and pancreas appear unremarkable. The bilateral kidneys show no acute findings. A complex structure with cystic and calcified components is present in the anterior left kidney measuring approximately 7 mm. A sonogram is recommended to confirm that this is a cyst with adjacent calcification. The appendix is visu alized and is unremarkable. No clear evidence of diverticulosis or diverticulitis is identified. The enteric structures otherwise appear unremarkable. The gastric wall is grossly thickened, probably secondary to poor distention. If there is clinical concern, than an endoscopy can be performed. 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 This is likely an old injury. The bladder wall is prominent. Urinalysis to exclude underlying cystitis is recommended. If further imaging is necessary, a cystoscopy should be considered. IMPRESSION: The gastric wall is prominent, probably secondary to poor distention. If there is any clinical concern, then an endoscopy should be considered. COPD. Complex structure at the anterior left kidney measuring 7 mm probably represents a cyst with adjacent calcification. Sonogram is recommended for confirmation. Appendix is normal. Vertebra plana at T12. While performing the above CT examination, radiation dose reduction was accomplished utilizing automated exposure control, adjusting of the mA and kV based on the patient's body size and/or the use of imperative reconstructive techniques. Page 1 of 2 [place] [address] PHONE: [phone] FAX: [phone] Name .................. : KENTON Le Acct Number.................. : [id number] ROOM. ................. : TR-05 MR Number ................... : [id number] Stay type ............. : E/R Discharge Date......... ... : Admit Date ......... : 11/11/20 Admit Phys .................... : ANGLE SAVANNAH Date of ....... : 1965 Family Phys ................... : NON STAFF Phone .................. : [phone] Age ................................ : 55 Film# .................. .:[id number] Sex ................................. : M Unsigned transcriptions are preliminary reports and do not represent a medical or legal document CT ABD & PELVIS W/ IV ONLY [id number] COMPLETE:11/11/20 17:26 GABRIEL 1501 Reason(s): GI bleed CT dose: 418.3 mGycm Contrast agent in mL: 75 Isovue 370 Method of administration: Intravenous Examination dictated by MIKAELA Mock. Examination was reviewed with Gagnadeep Anand MD, radiologist at the time of this dictation. Electronically Reviewed and Signed By Gagandeep Anand M.D. , 11/12/20 13:33, TOMMYY Transcribe Initials: KORTNEY , Transcribe Date: 11/11/20 19:11, Dictation Date: Copy for: NAGI LOPEZ via fax Copy for: ANGLE Bennett via fax Copy for: EMERGENCY DEPT via modem Copy for: 710 MED REC DISCHARGED Page 2 of 2 Name Value Range Interpretation Code Description Data Daisy rce(s) Supporting Document(s) ID Date Data Source [id number] 11/12/2020 08:59:43 AM EST [facility] Name Value Range Interpretation Code Description Data Daisy rce(s) Supporting Document(s) Progress Note [facility] [id number] [file] ID Date Data Source [id number] 11/12/2020 04:18:[address] [facility] Name Value Range Interpretation Code Description Data Daisy rce(s) Supporting Document(s) Microorganism or agent identified in Unspecified speci men Negative for SARS-CoV-[address] [facility] This lab was ordered by [facility] and reported by Department of Pathology and Laboratory Medicine at [facility]. ID Date Data Source [id number] 11/11/2020 01:26:00 PM EST [facility] 1 OrderSheet [facility] Emergency Department [address] [place] [address] Phone #: ext- [phone] 11/11/2020 13:14 Patient: ENID FUNG Sex: M : 1965 Age: 55yWEIGHT:54.4 kg (S) HEIGHT:61 inches (S) BMI:22.7ALLERGIES: Abacavir, Bactrim, Bee stings, Penicillins, Sulfa AntibioticsCHIEF COMPLAINT: rectal bleedingDIAGNOSIS: Anemia, Alcohol intoxication, HIV illness, Kidney stone, Problem, Inflammatory disease of liverLAB ORDERSOrder Description Priority Entered Acknowledged InitialedCBC w Diff STAT 14:28 11/11/2020 14:35 Chandana Winn RN P.A.-C;CMP STAT 14:28 11/11/2020 14:35 Chandana Winn RN P.A.- C;Lipase STAT 14:28 11/11/2020 14:35 Chandana Winn RN P.A.-C;PT/INR STAT 14:28 11/11/2020 14:35 Chandana Winn RN P.A.-C;PTT STAT 14:11/11/2020 14:35 Annalee Winn RN P.A.-C;Urinalysis (Clean STAT 14:11/11/2020 Ack'd: 21:35 22:13 Lesly) Chandana Patel RN P.A.-C;ETOH STAT 14:28 11/11/2020 14:35 Chandana Winn RN P.A.-C;Occult Blood Stool 14:28 11/11/2020 14:29 Pa,Diagnostic 1 slide Chandana Forrester RN P.A.-C;Type Rh STAT 14:33 11/11/2020 14:35 Chandana Winn RN P.A.-C;Type and Screen STAT 14:33 11/11/2020 14:35 Chandana Winn RN P.A.-C;Lactic Acid STAT 16:16 11/11/2020 16:18 Pa, 2 OrderSheet [facility] Emergency Department [address] [place] [address] Phone #: ext- [phone] 11/11/2020 13:14 Patient: ENID FUNG Sex: M : 1965 Age: 55y Chandana Forrester RN P.A.-C;Troponin-T STAT 17:06 11/11/2020 17:42 Chandana Alfonso-C P.A.-C;COVID-19 CAH (Not STAT 17:23 11/11/2020 20:36 ChristopherSymptomatic as Chandana CuetoCDefined by [facility]) P.A.-C;([id number]) (FirstTest) (NotHospitalized) (Not) (NotResident inCongregate CareSetting) (NotEmployed inHealthcare Setting)Influenza Nasal A B STAT 17:23 11/11/2020 20:36 Chandana Alfonso-C P.A.-C;ETOH STAT 18:24 11/11/2020 21:36 Pop Patel RN P.A.-C; NOTES: REPEATCBC w Diff STAT 20:35 11/11/2020 21:36 Pop Patel RN P.A.-C; NOTES: REPEATCMP STAT 20:35 11/11/2020 21:36 Pop Patel RN P.A.-C; NOTES: REPEATTroponin-T STAT 20:35 11/11/2020 21:36 Pop Patel RN P.A.- C; NOTES: REPEATLactic Acid STAT 20:35 11/11/2020 21:36 Pop Patel RN P.A.-C; NOTES: REPEATPT/INR STAT 20:36 11/11/2020 21:36 Pop Patel RN P.A.-C; 3 OrderSheet [facility] Emergency Department [address] [place] [address] Phone #: [phone]- [phone] 11/11/2020 13:14 [id number] Sex: M : 1965 Age: 55y NOTES: REPEATETOH STAT 20:37 11/11/2020 22:44 Pop Chandana Patel RN P.A.-C; NOTES: REPEATBlood Bank -see STAT 22:33 11/11/2020 22:44 Stevenpaper order Chandana Patel RN P.A.-C; NOTES: 2 units PRBCsDIAGNOSTIC STUDY ORDERSOrder Description Priority Entered Acknowledged InitialedCT Abd PEL W/ IV STAT 15:41 11/11/2020 16:40 TerryContrast Only Chandana Wolf RN(Oxygen?(No)) P.A.-C;(IV?(Yes)) Reason for Study: GI bleedChest 2 View STAT 15:43 11/11/2020 16:40 Héctor(Oxygen?(No)) Chandana Wolf RN P.A.-C; Reason for Study: ? GI Bleed/gastric ulcerMEDICATION/IV/DRIP/FLUID ORDERSOrder Description Priority Entered Acknowledged InitialedIV NS : Bolus 500 14:28 11/11/2020 16:17 Pa,mL, then 100 mL/hr Chandana Forrester RN P.A.-C;Protonix IVPB 40 14:28 11/11/2020 Cancelled: Physician Order 14:42mg with Dextrose Mitzy Callaway RN100 ml spike bag P.A.-C;(D5W)Zofran IVP 4 mg 14:28 11/11/2020 16:16 Chandana Winn RN P.A.- C;Protonix IV Push 40 14:43 11/11/2020 16:17 Pa,mg (in 10 mL NS, Mitzy Winn RN; Mitzy RNadminister over at Verbal order per;least 2 minutes, Chandana Lauren x1) P.A.- CIV NS 1000 mL 21:06 11/11/2020 21:33 StevenBolus : Bolus 1000 Chandana Patel RNmL (X1) P.A.-C; 4 OrderSheet [facility] Emergency Department [address] [place] [address] Phone #: ext- [phone] 11/11/2020 13:14 Patient: ENID FUNG Sex: M : 1965 Age: 55yGENERAL ORDERSOrder Description Priority Entered Acknowledged InitialedBlood Pressure 14:11/11/2020 16:15 TerryMonitor Chandana Wolf RN P.A.-C;Ski Binding Fitter And Repairer 14:11/11/2020 16:15 Héctor(continuous) Chandana Wolf RN P.A.-C;EKG 14:11/11/2020 16:15 Héctor Wolf RN P.A.-C;NPO 14:11/11/2020 16:15 Héctor Wolf RN P.A.-C;Obtain Old EKG 14:11/11/2020 16:15 Héctor Wolf RN P.A.-C;Obtain Old Records 14:11/11/2020 16:15 Héctor Wolf RN P.A.-C;Saline Lock 14:28 11/11/2020 15:09 Chandana Winn RN P.A.-C;Vitals 21:00 11/11/2020 21:36 Pop Patel RN P.A.-C;Vitals - Orthostatic 21:00 11/11/2020 21:36 Pop Patel RN P.A.- C;[Electronically signed by Pop Patel RN (00:57 11/12/2020)][Electronically signed by Chandana aBADanial (01:07 11/12/2020)][Electronically locked by Pop Patel RN (00:57 11/12/2020)] Name Value Range Interpretation Code Description Data Daisy rce(s) Supporting Document(s) ID Date Data Source [id number] 11/11/2020 01:26:00 PM [facility] 1 Medication Reconciliation Report [facility] Emergency Department [address] [place] [address] Phone #: ext- [phone] 11/11/2020 13:14 Patient: ENID FUNG Sex: M : 1965 Age: 55yWeight: 54.4 kgHeight/Length: 61 in.BMI: 22.7ALLERGIES: Abacavir, Bactrim, Bee stings, Penicillins, Sulfa AntibioticsThe patient's Home Medications are listed below:THE FOLLOWING MEDICATIONS NEED TO BE RECONCILED: Albuterol Sulfate HFA Inhalation, prn Aspirin Oral (81 mg), daily Biktarvy Oral (50-200-25 mg), daily Ferrous Sulfate Oral (325 (65 Fe) mg), daily Protonix Oral 40 mg, daily Sucralfate Oral (1 gm), 4x a dayThe source(s) of the original Home Medication information:Not obtained.The following Medications were given to the patient in the Emergency Department:Zofran [IVP] IVP 4 mg, administered: 15:16 11/11/2020IV NS IV Fluids bolus 500 mL over 1 hour(s), then 100 mL/hr, administered: 15:17 11/11/2020ROTONIX [IVP] IVP 40 mg, administered: 15:17 11/11/2020NS [IV] IV Fluids bolus 1000 mL, then 1000 mL/hr, administered: 21:33 11/11/2020The following Medications were prescribed to the patient:None. Name Value Range Interpretation Code Description Data Daisy rce(s) Supporting Document(s) ID Date Data Source [id number] 11/11/2020 01:26:00 PM [facility] 1 Medication Administration Record [facility] Emergency Department [address] [place] [address] Phone #: ext- [phone] 11/11/2020 13:14 Patient: ENID FUNG Sex: M : 1965 Age: 55yWeight: 54.4 kgHeight/Length: 61 inBMI: 22.7ALLERGIES: Bee stings, Penicillins, Abacavir, Bactrim, Sulfa Antibiotics Date/Time Medication Administered Medication OrderedStart IV NS IV NS : Bolus 500 mL, then 56100:17 11/11/2020 Dose: IV Fluids mL/hrLaMitzy Gaffney RN Rate: 100 mL/hr over 4 hour(s)---- Bolus: 500 mL over 1 hour(s)Stop Dispensed: 1000 mL bag21:26 11/11/2020 Site: #1 left Taryn Patel RNGiven ZOFRAN [IVP] (ONDANSETRON HCL) Zofran IVP 4 mg15:16 11/11/2020 Dose: 4 mg IVPLaFMitzy dyer RN Site: #1 left ACGiven PROTONIX [IVP] (PANTOPRAZOLE Protonix IV Push 40 mg (in 10 mL15:17 11/11/2020 SODIUM) NS, administer over at least 2LaFMitzy dyer RN Dose: 40 mg IVP minutes, NOW x1) Site: #1 left ACStart NS [IV] IV NS 1000 mL Bolus : Bolus 807699:33 11/11/2020 Dose: IV Fluids mL (X1)Pop Patel RN Rate: 1000 mL/hr---- Bolus: 1000 mLStop Dispensed: 1000 mL bag22:38 11/11/2020 Site: #1 left Taryn Patel RN Name Value Range Interpretation Code Description Data Daisy rce(s) Supporting Document(s) ID Date Data Source [id number] 11/11/2020 01:26:00 PM EST [facility] 1 General Instructions [facility] Emergency Department [address] [place] [address] Phone #: ext- [phone] 11/11/2020 13:14 Patient: ENID FUNG Sex: M : 1965 Age: 55yLeft nephrolithiasis.Chronic viral hepatitis C. No coma.Asymptomatic HIV illness.Uncomplicated alcohol intoxication with alcohol dependence.Severe acute and chronic iron deficiency anemia from chronic blood loss and anemia associated withchronic disease. ;abnormal CT of the abdomen and pelvis. (Complex structure at the anterior left kidney measuring 7 mmprobably represents a cyst with adjacent calcification).(Vertebral plana at T12). ADDITIONAL INFORMATIONAnemia, Type Not Specified (Adult)Red blood cells carry oxygen to the tissues of your body. Anemia is a condition in which you have toofew red blood cells. You need iron to make red blood cells. The most common cause of anemia is nothaving enough iron. This may be because of: Loss of blood. This can be caused by heavy menstrual periods. It can also be caused by bleeding from the stomach or intestines. Poor diet. You may not be eating enough foods that contain iron.Other causes of anemia include certain vitamin deficiencies, chronic kidney disease, and otherchronic illnesses.Anemia makes you feel tired and run down. When anemia becomes severe, your skin becomes pale.You may feel short of breath after physical activity. Other symptoms include: Headaches Dizziness Leg cramps with physical activity DrowsinessHome careFollow these guidelines when caring for yourself at home: 2 General Instructions [facility] Emergency Department [address] [place], [place] [address] Phone #: ext- [phone] 11/11/2020 13:14 Patient: ENID FUNG Sex: M : 1965 Age: 55y Don't overexert yourself. Talk with your healthcare provider before traveling by air or traveling to high altitudes.Follow-up careFollow up with your healthcare provider, or as advised. You may need other blood tests to find out theexact cause of your anemia. If you had testing done today, it may take several days to get all of theresults. You can follow up with your own healthcare provider to get the results.Call [phone] or get immediate medical care if any of the following occur: Shortness of breath or chest pain Dizziness or fainting gets worse Vomiting blood or passing red or black-colored stool [phone] [place] [address]. All rights reserved. This information is not intended as asubstitute for professional medical care. Always follow your healthcare professional's instructions. You have been given the following additional information: Anemia, Type Not Specified (Adult)(Electronically signed by Chandana Ba P.A.-C 11/12/2020 01:07) Name Value Range Interpretation Code Description Data Daisy rce(s) Supporting Document(s) ID Date Data Source [id number] 11/11/2020 01:26:00 PM EST [facility] 1 Clinical Report - Nurses [facility] Emergency Department [address] [place] [address] Phone #: ext- [phone] 11/11/2020 13:14 Patient: ENID FUNG Sex: M : 1965 Age: 55yTRIAGEArrived by private vehicle. Historian: patient.Acuity: LEVEL 3.Chief Complaint: BLOODY STOOLS.Alert. No acute distress.( PT will not answer when this started but says he has been having bloody stools and is anemic. 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 SEPSIS SCREEN NEGATIVE. No suspected or confirmedsigns of infection present.RENÉ COMA SCORE: 15- eyes open- spontaneous (4); best verbal response- oriented (5); bestmotor response- obeys commands (6). --14:17 11/11/20 Tram Lawson R.N.13:14 11/11/20. BP: 131/81. MAP: 97. HR: 88. RR: 20. O2 saturation: 93%. Temp: 97.5 F. Pain level now:0/10. --14:17 11/11/20 Tram Lawson R.N.Weight: 54.4 kg stated. Height/Length: 61 inches Per Patient. BMI: 22.7. --13:16 11/11/20 Tram Lawson R.N.MedicationsSucralfate Oral (Tablet 1 gm), 4x a day. --14:20 11/11/20 Tram Lawson R.N. Protonix Oral 40 mg, daily. --14:20 11/11/20 Tram Lawson R.N. Ferrous Sulfate Oral (Tablet 325 (65 Fe) mg), daily. --14:20 11/11/20 Tram Lawson R.N. Aspirin Oral (Tablet Chewable 81 mg), daily. --14:21 11/11/20 Tram Lawson R.N. Albuterol Sulfate HFA Inhalation, as needed. --14:21 11/11/20 Tram Lawson R.N. Biktarvy Oral (Tablet 50-200-25 mg), daily. --14:21 11/11/20 Tram Lawson R.N.AllergiesPenicillins. --14:24 11/11/20 Tram Lawson R.N.Bee stings. --14:24 11/11/20 Tram Lawson R.N.Sulfa Antibiotics. --14:42 11/11/20 Tram Lawson R.N.Bactrim. --14:42 11/11/20 Tram Lawson R.N.Abacavir. --14:42 11/11/20 Tram Lawson R.N. 2 Clinical Report - Nurses [facility] Emergency Department [address] [place] [address] Phone #: ext- [phone] 11/11/2020 13:14 Patient: ENID FUNG Sex: M : 1965 Age: 55yPROBLEMS:Gastroesophageal Reflux Disease.COPD - Chronic Obstructive Pulmonary Disease. --14:21 11/11/20 Tram Lawson R.N.Vertebral fractures.Alcoholism.Bed bugs.Hypertension.Hypokalemia.Iron deficiency anemia.Hepatitis.Gastric ulcer.HIV Illness. --14:43 11/11/20 Tram Lawson R.N.ADDITIONAL SURGERIES:no known surgeries.HistoryPAST MEDICAL HX: Immunizations: up-to-date.SOCIAL HX: Heavy tobacco smoker- more than 2 packs per day. Heavy alcohol use. Last drink was justprior to arrival. (6 pack of beer and 8 shots of tequila today). He was offered HIV testing but declined andhepatitis C testing but declined. He has not traveled outside the [place]Infectious disease exposure: The patient was exposed to C-diff.SELF HARM ASSESSMENT: Self harm assessment was performed. The patient answered "no" to thequestion(s) "Have you recently felt down, depressed, or hopeless?", "Do you have thoughts of harming orkilling yourself?", "Do you have a plan for harming or killing yourself?", "Have you recently had thoughtsabout harming or killing others?", "Do you have any dangerous items in your possession?", "Have younoticed less interest or pleasure in doing things?", "Are you here because you tried to hurt yourself?" and"Have you ever tried to hurt yourself before today?".ABUSE ASSESSMENT: No report of abuse.NUTRITIONAL RISK ASSESSMENT: The nutritional risk assessment revealed no deficiencies.FUNCTIONAL ASSESSMENT: Functional assessment: no impairments noted.LEARNING NEEDS ASSESSMENT: The learning needs assessment revealed no barriers.FALL RISK ASSESSMENT: Fall risk assessment completed. No risk factors identified.SKIN INTEGRITY ASSESSMENT: Skin integrity risk assessment completed. No skin integrity riskidentified. --14:17 11/11/20 Tram Lawson R.N.Interventions 3 Clinical Report - Nurses [facility] Emergency Department [address] [place] [address] Phone #: ext- [phone] 11/11/2020 13:14 Patient: ENID FUNG Sex: M : 1965 Age: 55y To treatment room. --14:17 11/11/20 Tram Lawson R.N. PHYSICAL ASSESSMENTTo room via wheelchair.GENERAL / NEURO / PSYCH: Alert. Appears in no acute distress. Mood/affect abnormal (angry). ( Ptis intoxicated with alcohol).HEENT: Pupils equal, round and reactive to light. No facial asymmetry noted. Mucous membranes arepink.RESPIRATORY: Respirations not labored. Nonproductive cough.CVS: Capillary refill less than 2 seconds. Pulses within normal limits.GI / : The patient has diarrhea. Blood present in the stool.SKIN: Skin intact. Skin is warm and dry. Normal skin turgor. --14:45 11/11/20 Tram Lawson R.N.NURSING PROGRESS NOTES( MIKAELA Acuña evaluating pt in triage room.). --14:24 11/11/20 Tram Lawson R.N. Charted On WrongPatient --14:25 11/11/20 Tram Lawson R.N. 13:25 11/11/20. Patient ready for evaluation- PA notified. --14:25 11/11/20 Tram Lawson R.N. 15:16 11/11/2020 Site #1 started via IV in the left antecubital space with an 20g angiocath; one attempt. Saline lock flushed with 5 mL saline. --16:16 11/11/20 Mitzy Winn RN 15:16 11/11/2020 Zofran (Ondansetron HCl) IVP 4 mg given via site #1. Allergies verified and confirmed 5 rights. IV patency established. IV site checked: no pain, redness, or swelling. IV flushed thoroughly pre- and post-medication administration. IVP given by RN. Information reviewed with patient including reason for taking this medication. Verbalizes understanding. --16:16 11/11/20 Mitzy Winn RN 15:17 11/11/2020 Started bag #1 1000 mL IV Fluids IV NS; bolus of 500 mL over 1 hour(s) then at 100 mL/hr over 4 hour(s) via site #1 via IV pump. Allergies verified and confirmed 5 rights. IV patency established. IV s ite checked: no pain, redness, or swelling. IV flushed thoroughly pre- and post- medication administration. Information reviewed with patient including reason for taking this medication. Verbalizes understanding. --16:17 11/11/20 Mitzy Winn RN 15:17 11/11/2020 PROTONIX (Pantoprazole Sodium) IVP 40 mg given via site #1. Allergies verified and confirmed 5 rights. IV patency established. IV site checked: no pain, redness, or swelling. IV flushed thoroughly pre- and post-medication administration. IVP given by RN. Information reviewed with patient including reason for taking this medication. Verbalizes understanding. --16:17 11/11/20 Mitzy Winn RN Patient transported to radiology and CT by wheelchair with mask and radiology equipment servicer. ([id number]). ( 1630 pt moved to room 5). --16:39 11/11/20 Héctor Wolf RN EKG time: (17:07 11/11/2020). EKG was performed by a nurse and shown to the PA. accelerated junctional. --17:08 11/11/20 Héctor Wolf RN 4 Clinical Report - Nurses [facility] Emergency Department [address] [place] [address] Phone #: ext- [phone] 11/11/2020 13:14 Patient: ENID FUNG Sex: M : 1965 Age: 55yChecked patient name and birthdate. Blood samples drawn by tech. (5520). --17:08 11/11/20 DANIELA Edenatient returned from CT by wheelchair with mask and radiology equipment servicer. (1700). --17:09 11/11/20 SAROJ Eden( 1820 supper tray arrived and offered to pt). --19:21 11/11/20 Héctor Wolf RNCare transferred (Bartolome aleman). --19:21 11/11/20 Héctor Wolf RN( 1630 to 1845 unable to keep b/p cuff on or pulse ox unable to obtain vital signs). --19:26 11/11/20 SAROJ Eden( Provider on the phone with Bobby Castro regarding possible transfer.). --19:28 11/11/20 Jeison Glover R.N.( Awaiting call back regarding bed availability). --19:48 11/11/20 Jeison Patel R.N.( Provider on phone with Rukhsana thibodeaux Hudson.). --20:24 11/11/20 Jeison Patel R.N.21:24 11/11/20. BP: 150/86 (regular adult cuff) taken on the right arm, via an automated monitor, whilelying. MAP: 107. HR: 114 (regular, normal rate and strong). RR: 18 (regular, unlabored and normal). Z0safqdegzsm: 99% on room air. Temp: 99 F (oral). Pain level now: 01/14. --21:26 11/11/20 Pop Patel RNReassessment acuity: LEVEL 3. Reassessment after fluids administered. He is resting quietly. Overallpatient status is improved. ( Refuses to wear monitor leads and continually removes B/P cuff and throws iton the floor).RESPIRATORY: No respiratory distress. Breath sounds normal.SKIN: Skin is warm and dry. Skin color within normal limits. --21:26 11/11/20 Pop Patel RN21:26 11/11/2020 IV Fluids IV NS via IV site #1 Discontinued: completed. Total amount infused: 1000 mL.IV patency established. IV site checked: no pain, redness, or swelling. IV flushed thoroughly. --21: Pop Patel RN21:33 11/11/2020 Started bag #1 1000 mL IV Fluids NS; bolus of 1000 mL then at 1000 mL/hr via site #1via IV pump. Allergies verified and confirmed 5 rights. IV patency established. IV site checked: no pain,redness, or swelling. IV flushed thoroughly pre- and post- medication administration. Information reviewedwith patient including reason for taking this medication, signs of allergic reaction and precautions.Verbalizes understanding. --21:33 11/11/20 Pop Patel RN( Refuses to stand and sit for orthostatic vitals). --21:37 11/11/20 Pop Patel RNHgb: 6.0. Hct: 20.6. --21:40 11/11/20 Jeison Patel R.N. 5 Clinical Report - Nurses [facility] Emergency Department [address] [place] [address] Phone #: ext- [phone] 11/11/2020 13:14 Patient: ENID FUNG Sex: M : 1965 Age: 55y Critical value read back. PA notifed of critical value. --21:41 11/11/20 Jeison Patel R.N. ( Call placed to [facility] by provider.). --21:47 11/11/20 Jeison Patel R.N. 22:38 11/11/2020 IV Fluids NS via IV site #1 Discontinued: bag #2 completed. Total amount infused: 1000 mL. IV patency established. IV site checked: no pain, redness, or swelling. IV flushed thoroughly. --00:53 11/12/20 Pop Patel RN.DISPOSITION / DISCHARGE Report was given to a nurse via a phone call. Report included information regarding patient's treatment, allergies and condition including: recent changes, current vital signs and abnormal labs. Report included treatment information regarding medications given or pending and home medications; type and amount of IV fluids and medications infusing and total volume infused. All questions were answered. Report was acknowledged and care was transferred. Bed obtained and ready. --23:49 11/11/20 Pop Patel RN Departure time: 00:47 11/12/2020. Transferred ([facility]). Transported via ambulance by med surg rn with monitor, IV and mask. Patient's personal items; items were placed in belongings bag and transported with the patient. --00:52 11/12/20 Pop Patel RN 00:50 11/12/20. BP: 134/82 (regular adult cuff) taken on the left arm, via an automated monitor, while lying. MAP: 99. HR: 127 (regular, tachycardic and strong). RR: 16 (regular, unlabored and normal). O2 saturation: 98% on room air. Temp: 98.3 F (oral). Pain level now: 410. --00:52 11/12/20 Pop Patel RN ( Received 50 cc of blood and was turned over to the Flight crew for transport). --00:57 11/12/20 Pop Patel RN.Locked/Released at 11/12/2020 00:57 by Pop Patel RN Name Value Range Interpretation Code Description Data Daisy rce(s) Supporting Document(s) ID Date Data Source [id number] 0001 11/11/2020 01:26:00 PM [facility] 1 Clinical Report - Physicians/Mid Levels [facility] Emergency Department [address] [place] [address] Phone #: ext- [phone] 11/11/2020 13:14 Patient: ENID FUNG Sex: M : 1965 Age: 55y Time Seen: 14:26 11/11/2020; initial patient contact, initial documentation. Arrived- By private vehicle. Historian- patient. History limited by poor cooperation and vague historian. Disposition decision: 23:19 11/11/2020.HISTORY OF PRESENT ILLNESS Chief Complaint: RECTAL BLEEDING. This started today Chronic, has been moderate and is still present. The patient has had dark stools and rectal bleeding. No constipation, nausea or vomiting. (Pt present to the ER with c/o rectal bleeding/bloody stools. Has hx of anemia. Sts that he was at [facility] yesterday for similar compalints, but left AMA. Pt sees ID and indicated they had concerns for possible peptic ulcer. Pt is poor historain; had become agiated with nurse. Able to calm pt down in attempt to obtian hx, but). Similar symptoms previously. Patient has had similar symptoms chronically. Recent medical care: The patient was seen recently at another facility in the emergency department.REVIEW OF SYSTEMS No dizziness, fainting episodes, weakness, fever or blurred vision. No sore throat, epistaxis, cough, difficulty breathing or chest pain. No hematuria, skin rash, enlarged lymph nodes, chills or joint pain. All other systems reviewed and are negative.PAST HISTORY See nurses notes. Peptic ulcer. GI bleeding. Problems: Vertebral fractures. Alcoholism. Bed bugs. Hypertension. Hypokalemia. Iron deficiency anemia. Hepatitis. Gastric ulcer. HIV Illness. Gastroesophageal Reflux Disease. COPD - Chronic Obstructive Pulmonary Disease. Additional Surgeries: no known surgeries. 2 Clinical Report - Physicians/[facility] Emergency Department [address] [place] [address] Phone #: ext- [phone] 11/11/2020 13:14 [id number] Sex[facility] M : 1965 Age: 55y Medications: Biktarvy Oral (Tablet 50-200-25 mg), daily. Albuterol Sulfate HFA Inhalation, as needed. Aspirin Oral (Tablet Chewable 81 mg), daily. Ferrous Sulfate Oral (Tablet 325 (65 Fe) mg), daily. Protonix Oral 40 mg, daily. Sucralfate Oral (Tablet 1 gm), 4x a day. Allergies: Abacavir. Bactrim. Bee stings. Penicillins. Sulfa Antibiotics.SOCIAL HISTORY Heavy tobacco smoker- more than 2 packs per day. Regular heavy alcohol use; consumes beer and liquor. No drug use.ADDITIONAL NOTES The nursing notes have be en reviewed.PHYSICAL EXAM Vital Signs: 11/11/2020 13:14 BP: 131/81. MAP: 97. HR: 88. RR: 20. O2 saturation: 93%. Temp: 97.5 F. Pain level now: 0/10. Have been reviewed. Oxygen saturation normal. Appearance: Alert. No acute distress. He appears intoxicated and appears unkempt. Eyes: Eyelids appear normal to inspection. Corneas appear normal to inspection. Pupils equal, round and reactive to light. EOMs intact. Periorbital areas appear normal to inspection. Noted small conjuntival hemmorhage of the L lateral eye. ENT: Normal ENT inspection. Airway intact. TM's normal. Ears normal. Nose normal. Nares normal. Pharynx normal. Moist mucous membranes. Uvula midline. Voice normal. Neck: Neck supple and nontender. Full ROM. CVS: Normal heart rate and rhythm. No JVD present. Pulses normal. Capillary refill normal. Strong peripheral pulses. Heart sounds normal. Pulses: right radial 2+; left radial 2+; right dorsalis pedis 2+; left dorsalis pedis 2+; right posterior tibial 2+; left posterior tibial 2+. Respiratory: Chest normal on inspection. No respiratory distress. Unlabored respirations. Good chest movement. Breath sounds normal and equal. Chest nontender. Abdomen: Normal inspection. Soft and nontender. Bowel sounds normal. No distention. Rectal: Rectal exam normal. External hemorrhoids. No inflamed external hemorrhoids or thrombosed external hemorrhoids. Sphincter tone normal. ( Pt gives verbal consent for exam. Declines epic anesthesia analyst). Skin: Skin warm and dry. (Multiple abrsions/itch dunn s/p insect bites of the b/l arms, shoulders, and upper back.). Extremities: Extremities exhibit normal ROM. No lower extremity edema. No calf tenderness. No lower extremity edema. Neuro: Awake. Alert. Speech normal. No motor deficit. 3 Clinical Report - Physicians/[facility] Emergency Department [address] [place] [address] Phone #: ext- [phone] 11/11/2020 13:14 Patient: ENID FUNG Sex: M : 1965 Age: 55y Psych: Cognition normal. Thought process and content normal. Insight and judgement normal.LABS, X-RAYS, AND EKG EKG: Rate: 88. Accelerated Junctional Rhythm; septal infarct, age undetermined; abnroaml ECG. Discussed and reviewed with/by attending. Chest X-ray: (Anatoly brown Mike - 11/11/2020 5:33:28 PM Left upper lobe scarring. No acute pulmonary findings. Lloyd). The X-rays were interpreted by the radiologist. CT Abdomen - Pelvis: Anatoly brown Mike - 11/11/2020 5:37:58 PM Complex structure in the left kidney, not complex fracture Anatoly brown Mike - 11/11/2020 5:28:31 PM bladder wall prominent correlate with ua to excluded cystitis frank/kiet Anatoly brown Horace - 11/11/2020 5:27:38 PM no clear evidence of diverticulosis or diverticulitis Lloyd kietjayantThadAnatoly, Horace - 11/11/2020 5:27:05 PM Normal appendix. Vertebral plana at T12. Prominence of the gastric wall probably secondary to poor distention. If there is any clinical concern for underlying gastric pathology then endoscopy s hould be considered. Complex fracture anteriorly at the left kidney measuring 7 mm. Likely represents a cyst with adjacent calcification. Sonogram for confirmation is recommended. No free fluid. Frank Anatoly. The study was interpreted by the radiologist. Laboratory Tests: ETOH: (DEB: 11/11/2020 20:50) ( [facility] Final results Test Result Flag Units (Reference) ALCOHOL 92.0 MG/DL ALCOHOL % 0.09 H % (0.00 - 0.01) *FOR MEDICAL PURPOSES ONLY* PT/INR: (DEB: 11/11/2020 20:50) ( [facility] 11/11/[facility] 21:09) Final results Test Result Flag Units (Reference) PROTIME 13.2 SECONDS (11.0 - 15.5) INR 0.95 (0.93 - 1.23) \\BLDo\\INR INTERPRETATION\\BLDx\\ Therapeutic range for Coumadin and related oral anticoagulants. -International Normalized Ratio (INR): 2.0 - 3.0 for Venous Thrombosis, Pulmonary Embolus, Tissue heart valves, Acute IA, Atrial Fibrillation, Valvular heart disease and recurrent Systemic Embolism. -International Normalized Ratio (INR): 2.5 - 3.5 for Mec hanical Prosthetic valve. 4 Clinical Report - Physicians/Mid Levels [facility] Emergency Department [address] [place] [address] Phone #: ext- [phone] 11/11/2020 13:14 Patient: ENID FUNG Sex: M : 1965 Age: 55yCBC w Diff: (DEB: 11/11/2020 20:50) ( MsgRcvd 11/11/2020 21:49) Final results Test Result Flag Units (Reference) CBC W/AUTOMATED DIFF COMPLETE BLOOD COUNT WBC 5.9 10/uL (4.2 - 11.0) RBC 2.10 L 10/uL (4.50 - 6.30) HEMOGLOBIN 6.0 LL g/dL (14.0 - 16.0) CALL/ READ BACK JEISON KYLE ER BY: LJ DATE/TIME 11.11.202126 HEMATOCRIT 20.5 L % (41.0 - 51.0) MCV 97.6 H fL (80.0 - 94.0) MCH 28.6 pg (27.0 - 34.0) MCHC 29.3 L g/dL (31.0 - 36.0) RDW 21.5 H % (11.5 - 14.8) PLATELETS 437 10/uL (150 - 450) MPV 9.5 fL (7.4 - 10.4) NEUT 71.3 % (37.0 - 80.0) LYMPH 9.8 L % (25.0 - 40.0) MONO 14.9 H % (3.0 - 8.0) EOS 2.0 % (0.0 - 7.0) BASO 0.8 % (0.0 - 2.0) %IG 1.2 H % (0.0 - 0.0) %NRBC 0.7 H % (0.0 - 0.0) #NEUT 4.20 10/uL (2.00 - 6.90) #LYMPH 0.58 L 10/uL (0.60 - 3.40) #MONO 0.88 10/uL (0.00 - 0.90) #EOS 0.12 10/uL (0.00 - 0.70) #BASO 0.05 10/uL (0.00 - 0.20) #IG 0.07 10/uL (0.00 - 0.10) #NRBC 0.04 H 10/uL (0.00 - 0.00) MANUAL DIFF SEE BELOW SEGS 75 % (37 - 80) %LYMPH 14 L % (25 - 40) %MONO 10 H % (3 - 8) %EOS 1 % (0 - 7) RBC MORPH SEE BELOW ANISO 3+ A (NORMAL: NONE HYPO 3+ A (NORMAL: NONE { SICKLE CELL (NORMAL: NONE SEEN ) TARGET CELLS 2+ A (NORMAL: NONE PLT EST INCREASED A (NORMAL: ROCIO COMMENT: _FEW_PLATELET_CLUMPS_OBSERVED 11/11/20.2147.TAD.. . CMP: (DEB: 11/11/2020 20:50) ( MsgRcvd 11/11/2020 21:24) Final results Test Result Flag Units (Reference) COMPREHENSIVE METABOLIC PANEL COMPREHENSIVE METABOLIC PANEL SODIUM 134 mEq/L (134 - 153) POTASSIUM 4.0 mEq/L (3.6 - 5.0) CHLORIDE 101 mEq/L (98 - 107) CO2 23 MEQ/L (22 - 30) 5 Clinical Report - Physicians/Mid Levels [facility] Emergency Department [address] [place] [address] Phone #: ext- [phone] 11/11/2020 13:14 Patient: ENID FUNG Sex: M : 1965 Age: 55y GLUCOSE 81 MG/DL (65 - 110) BUN 6 L MG/DL (7 - 21) CREATININE 0.6 L MG/DL (0.7 - 1.5) BUN/CREAT 10 (8 - 27) TOTAL PROTEIN 5.0 L G/DL (6.3 - 8.2) ALBUMIN 2.9 L G/DL (3.9 - 5.0) GLOBULIN 2.1 L GM/DL (2.4 - 3.2) A/G RATIO 1.4 (0.8 - 2.0) CALCIUM 8.2 L MG/DL (8.4 - 10.2) TOTAL BILI <0.7 MG/DL (0.2 - 1.3) ALKALINE PHOS 90 U/L (38 - 126) SGOT/AST 19 U/L (5 - 40) SGPT/ALT 10 U/L (7 - 56) ANION GAP 10.0 mmol/L (8.0 - 16.0) AGE 55 yrs NON-AA GFR >60 mL/min AFR AMER GFR >60 mL/min Male GFR Interprentation 20-49 yrs >60 mL/min [id number] yrs >56 mL/min Normal 60-69 yrs >49 mL/min Normal 70-79yrs>42 mL/min Normal 80 and above >35 mL/min Normal Female GFRInterpretation 20-39 yrs >60 mL/min Normal 40-49 yrs >58 mL/minNormal 50-59 yrs >51 mL/min Normal 60-69 yrs >45 mL/min Mmztpt48-10 yrs >39 mL/min Normal 80 and above >32 mL/min NormalTroponin-T: (DEB: 11/11/2020 20:50) ( MsgRcvd 11/11/2020 21:22) Final results Test Result Flag Units (Reference) TROPONIN T <0.01 NG/ML (0.00 - 0.10) TROPONIN T0.1 ng/ml Recommended as the clinical threshold value forTroponin T.Lactic Acid: (DEB: 11/11/2020 20:50) ( MsgRcvd 11/11/2020 21:07) Final results Test Result Flag Units (Reference) LACTIC ACID 3.6 HH MMOL/L (0.2 - 2.2) CALL/ READ BACK DR NAGI HOLMAN BY: LJ DATE/TIME 11.11.202104ETOH: (DEB: 11/11/2020 18:44) ( MsgRcvd 11/11/2020 19:19) Final results Test Result Flag Units (Reference) ALCOHOL 168.0 MG/DL ALCOHOL % 0.17 H % (0.00 - 0.01) *FOR MEDICAL PURPOSES ONLY*COVID-19 CAH: (DEB: 11/11/2020 17:30) ( MsgRcvd 11/11/2020 18:09) Final results Test Result Flag Units (Reference) COVID-19 NOT DETECTED COVID-19 REENTER NOT DETECTED { PROCEDURAL CONTROL VALID KIT LOT # _[id number] 11/11/20.1808.LJ. KIT EXP DATE _02.12.21 11/11/20.1808.TAD. NORMAL RANGE IS NOT DETECTEDNEGATIVE RESULTS SHOULD BE TREATEDAS PRESUMPTIVE AND, IF INCONSISTENT WITHCLINICAL SIGNS AND SYMPTOMS OR NECESSARY FOR PATIENT MANAGEMENT, SHOULDBETESTED WITH DIFFERENT AUTHORIZED OR CLEARED MOLECULAR TESTS. NEGATIVE RESULTSDO NOT PRECLUDE [id number] AND SHOULD NOT BE USED THE SOLE BASISFOR PATIENT MANAGEMENT DECISIONS.Influenza Nasal A B: (DEB: 11/11/2020 19:00) ( [facility] 11/11/2020 19:46) Final results 6 Clinical Report - Physicians/Mid Levels [facility] Emergency Department [address] [place] [address] Phone #: ext- [phone] 11/11/2020 13:14 Patient: ENID FUNG Sex: M : 1965 Age: 55y Test Result Flag Units (Reference) INFLUENZA A NEGATIVE (NORMAL: NEGAT INFLUENZA B NEGATIVE (NORMAL: NEGAT INFLUENZA A REENTER NEGATIVE (NORMAL: NEGAT INFLUENZA B REENTER NEGATIVE (NORMAL: NEGAT PROCEDURAL CONTROL VALID KIT LOT # [id number] 11/11/20.TAD. KIT EXP DATE _01.27.21 11/11/20.TAD.The Influenza A utilizing an isothermal nucleic acid amplification technology for thequalitativedetection of influenza A and B viral RNA.Negative results do not preclude influenza virus infection and shouldnot beused as the sole basis for diagnosis, treatment or other patient managementdecisions.Troponin-T: (DEB: 11/11/2020 14:50) ( MsgRcvd 11/11/2020 17:27) Final results Test Result Flag Units (Reference) TROPONIN T <0.01 NG/ML (0.00 - 0.10) TROPONIN T0.1 ng/ml Recommended as the clinical threshold value Zoeropoparker T.Lactic Acid: (DEB: 11/11/2020 17:09) ( MsgRcvd 11/11/2020 17:44) Final results Test Result Flag Units (Reference) LACTIC ACID 2.3 H MMOL/L (0.2 - 2.2)Chest 2 View: (DEB: 11/11/2020 15:43) ( MsgRcvd 11/11/2020 20:16) In ProgressCHEST 2 VIEWSReason(s): ? GI Bleed/gastric ulcerTRANSPORTATION: WC IV? O2? Oxygen?(No) Room: ED Exam CHEST 2 VIEWS [facility] [address] [place] [address] PHONE: [phone] FAX: [phone] Name .................. : KENTON Le Acct Number.................. : [id number] ROOM. ................. : TR-05 Number ................... : [id number] Stay type ............. : E/R Discharge Date......... ... : Admit Date ......... : 11/11/20 Admit Phys .................... : ANGLE SAVANNAH Date of ....... : 1965 Family Phys ................... : NON STAFF Phone .................. : [phone] Age ................................ : 55 Film# .................. .:[id number] Sex ................................. : M Unsigned transcriptions are preliminary reports and do not represent a medical or legal document CHEST 2 VIEWS [id number] COMPLETE:11/11/20 17:26 GABRIEL 1502 Reason(s): ? GI Bleed/gastric ulcer CHEST X-RAY: 2-VIEWS INDICATION: GI bleed/gastric ulcer. FINDINGS: There is extensive scarring identified at the left upper lobe. Correlation with previous chest radiographs would be helpful. No definite focal infiltrate is identified. The cardiac silhouette appears unremarkable. 7 Clinical Report - Physicians/[facility] Emergency Department [address] [place] [address] Phone #: ext- [phone] 11/11/2020 13:14 Patient: ENID FUNG Sex: M : 1965 Age: 55y IMPRESSION: Left upper lobe scarring. No acute pulmonary findings. Examination dictated by MIKAELA Mock. Examination was reviewed with Gagandeep Anand MD, radiologist at the time of this dictation. Electronically Reviewed and Signed By DCTVICTOR HUGO , SIGNDATE, KATIA Transcribe Initials: KORTNEY , Transcribe Date: 11/11/20 20:15, Dictation Date: <<REPDIST>> Page 1of 1CT Abd PEL W/ IV Contrast Only: (DEB: 11/11/2020 15:41) ( MsgRcvd 11/11/2020 19:11) In ProgressCT ABDReason(s): GI bleedTRANSPORTATION: WC IV? IV?(Yes) O2? Oxygen?(No) Ro Exam CT ABD //T// PELVIS W/ IV ONLY [facility] [address] [place] [address] PHONE: [phone] FAX: [phone] Name .................. : KENTON Le Acct Number.................. : [id number] ROOM. ................. : [facility] MR Number ................... : [id number] Stay type ............. : E/R Discharge Date......... ... : Admit Date ......... : 11/11/20 Admit Phys .................... : ANGLE [facility] Date of ....... : 1965 Family Phys ................... : NON STAFF Phone .. ................ : [phone] Age ................................ : 55 Film# .................. .:[id number] Sex ................................. : M Unsigned transcriptions are preliminary reports and do not represent a medical or legal document CT ABD Reason(s): GI bleed CT SCAN OF THE ABDOMEN AND PELVIS WITH CONTRAST: INDICATION: GI bleed. FINDINGS: The lung bases show COPD. No focal infiltrate or consolidation is identified. No discrete nodule or infiltrate is identified. The heart appears unremarkable. The liver, gallbladder, spleen, adrenal glands and pancreas appear unremarkable. The bilateral kidneys show no acute findings. A complex structure with cystic and calcified components is present in the anterior left kidney measuring approximately 7 mm. A sonogram is recommended to confirm that this is a cyst with adjacent calcification. The appendix is visualized and is unremarkable. No clear evidence of diverticulosis or diverticulitis is identified. The enteric structures otherwise appear unremarkable. 8 Clinical Report - Physicians/Mid Levels [facility] Emergency Department [address] [place] [address] Phone #: ext- [phone] 11/11/2020 13:14 Patient: ENID FUNG Sex: M : 1965 Age: 55y The gastric wall is grossly thickened, probably secondary to poor distention. If there is clinical concern, than an endoscopy can be performed. 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 This is likely an old injury. The bladder wall is prominent. Urinalysis to exclude underlying cystitis is recommended. If further imaging is necessary, a cystoscopy should be considered. IMPRESSION: The gastric wall is prominent, probably secondary to poor distention. If there is any clinical concern, then an endoscopy should be considered. COPD. Complex structure at the anterior left kidney measuring 7 mm probably represents a cyst with adjacent calcification. Sonogram is recommended for confirmation. Appendix is normal. Vertebra plana at T12. While performing the above CT examination, radiation dose reduction was accomplished utilizing automated exposure control, adjusting of the mA and kV based on the patient's body size and/or the use of imperative reconstructive techniques. Page 1of [address] [place] [address] PHONE: [phone] FAX: [phone] Name .................. : KENTON Le Acct Number.................. : [id number] ROOM. ................. : TR-05 MR Number ................... : [id number] Stay type ............. : E/R Discharge Date......... ... : Admit Date ......... : 11/11/20 Admit Phys .................... : ANGLE SAVANNAH Date of ....... : 1965 Family Phys ................... : NON STAFF Phone .................. : [phone] Age ................................ : 55 Film# .................. .:[id number] Sex ................................. : M Unsigned transcriptions are preliminary reports and do not represent a medical or legal document CT ABD Reason(s): GI bleed CT dose: 418.3 mGycm Contrast agent in mL: 75 Isovue 370 Method of administration: Intravenous Examination dictated by MIKAELA Mock. Examination was reviewed with Gagandeep Anand MD, radiologist at the time of this dictation. Electronically Reviewed and Signed By CAROLYN LUDWIG, KATIA Transcribe Initials: KORTNEY , Transcribe Date: 11/11/20 19:11, Dictation Date: <<REPDIST>> 9 Clinical Report - Physicians/Mid Levels [facility] Emergency Department [address] [place] [address] Phone #: ext- [phone] 11/11/2020 13:14 Patient: ENID FUNG Sex: M : 1965 Age: 55y Page 2of 2Type Rh: (DEB: 11/11/2020 14:50) ( MsgRcvd 11/11/2020 15:03) CanceledType and Screen: (DEB: 11/11/2020 14:50) ( MsgRcvd 11/11/2020 16:17) Final results Test Result Flag Units (Reference) ABO GROUP O RH TYPE POSITIVE AB SCREEN NEGATIVE (NORMAL: NEGAT { ABO/RH REENTER O POSITIVE{ AB SCREEN RE-ENTER NEGATIVECBC w Diff: (DEB: 11/11/2020 14:50) ( MsgRcvd 11/11/2020 15:52) Final results Test Result Flag Units (Reference) CBC W/AUTOMATED DIFF COMPLETE BLOOD COUNT WBC 9.7 10/uL (4.2 - 11.0) RBC 2.47 L 10/uL (4.50 - 6.30) HEMOGLOBIN 7.1 L g/dL (14.0 - 16.0) HEMATOCRIT 24.1 L % (41.0 - 51.0) MCV 97.6 H fL (80.0 - 94.0) MCH 28.7 pg (27.0 - 34.0) MCHC 29.5 L g/dL (31.0 - 36.0) RDW 21.6 H % (11.5 - 14.8) PLATELETS 490 H 10/uL (150 - 450) MPV 9.7 fL (7.4 - 10.4) NEUT 71.3 % (37.0 - 80.0) LYMPH 13.2 L % (25.0 - 40.0) MONO 12.4 H % (3.0 - 8.0) EOS 1.2 % (0.0 - 7.0) BASO 1.0 % (0.0 - 2.0) %IG 0.9 H % (0.0 - 0.0) %NRBC 0.5 H % (0.0 - 0.0) #NEUT 6.89 10/uL (2.00 - 6.90) #LYMPH 1.28 10/uL (0.60 - 3.40) #MONO 1.20 H 10/uL (0.00 - 0.90) #EOS 0.12 10/uL (0.00 - 0.70) #BASO 0.10 10/uL (0.00 - 0.20) #IG 0.09 10/uL (0.00 - 0.10) #NRBC 0.05 H 10/uL (0.00 - 0.00) MANUAL DIFF SEE BELOW SEGS 77 % (37 - 80) %LYMPH 14 L % (25 - 40) %MONO 6 % (3 - 8) %EOS 3 % (0 - 7) RBC MORPH SEE BELOW ANISO 2+ A (NORMAL: NONE HYPO 2+ A (NORMAL: NONE { SICKLE CELL (NORMAL: NONE SEEN ) TARGET CELLS 2+ A (NORMAL: NONE PLT EST INCREASED A (NORMAL: ROCIO COMMENT: 10 Clinical Report - Physicians/[facility] Emergency Department [address] [place] [address] Phone #: ext- [phone] 11/11/2020 13:14 [id number] Sex: M : 1965 Age: 55yCMP: (DEB: 11/11/2020 14:50) ( MsgRcvd 11/11/2020 15:25) Final results Test Result Flag Units (Reference) COMPREHENSIVE METABOLIC PANEL COMPREHENSIVE METABOLIC PANEL SODIUM 132 L mEq/L (134 - 153) POTASSIUM 4.8 mEq/L (3.6 - 5.0) CHLORIDE 97 L mEq/L (98 - 107) CO2 23 MEQ/L (22 - 30) GLUCOSE 84 MG/DL (65 - 110) BUN 8 MG/DL (7 - 21) CREATININE 0.6 L MG/DL (0.7 - 1.5) BUN/CREAT 13 (8 - 27) TOTAL PROTEIN 6.5 G/DL (6.3 - 8.2) ALBUMIN 3.8 L G/DL (3.9 - 5.0) GLOBULIN 2.7 GM/DL (2.4 - 3.2) A/G RATIO 1.4 (0.8 - 2.0) CALCIUM 9.5 MG/DL (8.4 - 10.2) TOTAL BILI <0.7 MG/DL (0.2 - 1.3) ALKALINE PHOS 109 U/L (38 - 126) SGOT/AST 23 U/L (5 - 40) SGPT/ALT 13 U/L (7 - 56) ANION GAP 12.0 mmol/L (8.0 - 16.0) AGE 55 yrs NON-AA GFR >60 mL/min AFR AMER GFR >60 mL/min Male GFR Interprentation 20-49 yrs >60 mL/min Dqdabs79-10 yrs >56 mL/min Normal 60-69 yrs >49 mL/min Normal 70-79yrs>42 mL/min Normal 80 and above >35 mL/min Normal Female GFRInterpretation 20-39 yrs >60 mL/min Normal 40-49 yrs >58 mL/minNormal 50-59 yrs >51 mL/min Normal 60-69 yrs >45 mL/min Umiqux96-04 yrs >39 mL/min Normal 80 and above >32 mL/min NormalLipase: (DEB: 11/11/2020 14:50) ( [facility] 11/11/2020 15:25) Final results Test Result Flag Units (Reference) LIPASE 55 U/L (13 - 60)PT/INR: (DEB: 11/11/2020 14:50) ( MsgRcvd 11/11/2020 16:08) Final results Test Result Flag Units (Reference) PROTIME 13.0 SECONDS (11.0 - 15.5) INR 0.94 (0.93 - 1. 23) \\BLDo\\INR INTERPRETATION\\BLDx\\ Therapeutic range for Coumadin andrelated oral anticoagulants. - International Normalized Ratio (INR): 2.0 - 3.0 for VenousThrombosis, Pulmonary Embolus, Tissue heart valves, Acute IA, Atrial Fibrillation, Valvular heartdisease and recurrent Systemic Embolism. - International Normalized Ratio (INR): 2.5 - 3.5for Mechanical Prosthetic valve.PTT: (DEB: 11/11/2020 14:50) ( [facility] 11/11/2020 16:09) Final results Test Result Flag Units (Reference) PTT 26.3 SECONDS (24.8 - 36.7)Urinalysis: (DEB: 11/11/2020 22:10) ( [facility] 11/11/2020 22:19) Final results Test Result Flag Units (Reference) URINALYSIS 11 Clinical Report - Physicians/Mid Levels [facility] Emergency Department [address] [place] [address] Phone #: ext- [phone] 11/11/2020 13:14 Patient: ENID FUNG Sex: M : 1965 Age: 55y URINALYSIS SOURCE Clean Catch COLOR yellow (NORMAL: Yello CLARITY clear (NORMAL: Clear SPEC GRAVITY 1.005 (1.001 - 1.030 pH 6 (5 - 9) GLUCOSE NORM (NORMAL: Negat BILIRUBIN NEG (NORMAL: Negat KETONE NEG (NORMAL: Negat PROTEIN NEG (NORMAL: Negat NITRITE NEG (NORMAL: Negat BLOOD NEG (NORMAL: Negat LEUK EST NEG (NORMAL: Negat UROBILINOGEN NOR (less than 1.0 MICROSCOPIC Not Indicate ETOH: (DEB: 11/11/2020 14:50) ( [facility] 11/11/2020 15:26) Final results Test Result Flag Units (Reference) ALCOHOL 292.0 MG/DL ALCOHOL % 0.29 H % (0.00 - 0.01) *FOR MEDICAL PURPOSES ON LY* Occult Blood Stool Diagnostic 1 slide: (DEB: 11/11/2020 14:15) ( [facility] 11/11/2020 15:25) Final results Test Result Flag Units (Reference) OCCULT BLOOD NEGATIVE (NORMAL: NEGAT OCCULT BLOOD REENTER NEGATIVE (NORMAL: NEGAT { HEMOCCULT LOT # [id number] 1L ){ LOT EXP DATE 03/28 ){ PROCEDURAL CONTROL POS/NEG VALID ).PROGRESS AND PROCEDURES Course of Care: VSS, NAD, AOx3, interacting well and does appear intoxicated, no use of accessory muscle, able to speak full sentences, stable, non-toxic looking. Pt was yelling at nurse; able to de-escualte. Enter room and pt sitting peacefully in chair in NAD. Patient stable. Denies any new issues, concerns, or complaints. Sts that he has c/o rectal bleeding; noted on BM this AM. Hx of anemia. Pt sts that he was at [facility] yesterday and they wanted to transfer, but pt left AMA because he was upset with [facility]. Pt sts has a hx of anemia. Seen by ID Doc (Dr. Marquez) for HIV and Hepatitits. Sts there was ? bleeding ulcer vs rectal cancer vs other. Pt has ETHO; ? poor historian. Pt smells of ETHO and admits to 6pack and multiple tequila shots today. Pt wanting WIFI password. Sts not going forward until wifi is given. Assisted and all good. Pt sts that he will be non-compliant if not happy. 12 Clinical Report - Physicians/Mid Levels [facility] Emergency Department [address] [place] [address] Phone #: ext- [phone] 11/11/2020 13:14 Patient: EIND FUNG Sex: M : 1965 Age: 55yPE dmeos NV itnact b/l UE and LE. Will obtina previous results. No obvious bleeding source.Labs from yesterday [facility]:RBC: 2.45Hemoglobin: 7.1Hematocrit: 24.5? nubmers 2/2 pts chronic stable numbers as hx of anemia, HIV, and on meds. Pt is currenltyasymptomatic. Reviewed CXR; ? PNU due to hx of HIV vs COVID vs other. Discussed wiht attendng. Recommends toobtian COIVD. Due to mutliple potential exposure, will do rapid. Pt had no COVID complaints, butfindings.18:24 11/11/20. Enter room and patient lying peacefully in bed in [facility]. Patient stable. Denies any newissues, concerns, or complaints.Pt becomes very angry due to no food. Pt threatening to be non-compliant and leave AMA. Pt stable andhas [facility] iwth no complaints. Discussed with attending and agrees to allow food. This willallow better alignment of care and de-esculate pt leaving AMA possibly missing underlying pathology.Will give food and drink.Pt sts willing to transfer, but wants food and declines [facility]. Absolutly declines SMCPt is stable anemic. file clerk indicates only lab was yesterday; unable to determine baseline. Will needtransfer. ? gastric patho as CT indicates ? finding. ? chronc stabe due to hx and medication. Transferto facility that has GI, ? hematology, ? ID. Will contact DEL.18:30 11/11/20. Called [facility] and discussed with Ene. Will call back. Indicates that name does janar from yesterday.18:51 11/11/20. DEL calls back and discuss with Antoinette. sts she will call back.19:22 11/11/20. DEL calls back and indicates that no beds and both ERs are on diversion.19:32 11/11/20. Called [facility]. Disucssed with nurse [place]fferdam construction supervisor. Will call back.20:44 11/11/20. Dr. Membreno from [facility] calls back and discusses pt. Inquires about labs. Indicates thatshe feels that labs are too old and requests that they repeated. Inquired if blood was given. I informedno as pt was stable and asymptomatic here; sts that this reinforces repeat labs; fully understnad.Informed that pt had eaten; had previously discussed with attending and due to stable nature, lenght ofstay, and prevent AMA concluded that it would be ok as if there was any surgery, felt that it would not 13 Clinical Report - Physicians/Mid Levels [facility] Emergency Department [address] [place] [address] Phone #: ext- [phone] 11/11/2020 13:14 Patient: ENID FUNG Sex: M : 1965 Age: 55yhappen tongiht, thus reassuring allowed to eat. She did not agree wth this; fully understand; but she alsoindicates that if pt is able to eat and hold down this is reassuring.Will repeat labs and go from there. Penidng results.Enter room and patient lying peacefully in bed in NAD. Patient stable. Denies any new issues,concerns, or complaints. Discuss current sitaiton. Noted that labs have worsened since here. Ptunderstaind. infomred that doctor was upset that we let him eat; pt sts he was adament that he was goingto eat or be non-complant. Pt understands need for transfer.Recieved call from [facility] and no Transfer due to no beds. Called [facility] and not able to transferunless cardiac due to no beds. . [facility] and infomred no capacity fortransfer.22:35 11/11/20. Enter room and patient lying peacefully in bed in NAD. Patient stable. Denies any newissues, concerns, or complaints. Pt sts that he feels fine, but understands need for blood products. [place] 2 years ago with no issues or adverse SEs.Due to decrease in H/H and time for a transfer, do not want to delayl. Pt is fully understandable andagreeable.Discuss with Yu Lawrence and discuss with Toya in transfer center. Sts that pt can be auto acceptunder hospitalist (Dr. Bansal) and ot report to the ER. Informed that I will attempt to transfuse 2 units hereadn she understands.Due to time and amount of drop, will attempt to fly as there are multiple transfers from our facility andtransfer will be extended.Enter room and patient lying peacefully in bed in NAD. Patient stable. Denies any new issues,concerns, or complaints. Continues to indicate he feels fine. Assist pt to standing so that he can utilzecommode; no gross hematuria. Pt deneis any other source of bleedign. Re-examine abd and [id number].Critical care performed (90 minutes). Time includes: direct patient care, patient reassessment, coordinationof patient care, interpretation of data (laboratory data and chest xrays), review of patient's medical records,medical consultation, family consultation regarding treatment decisions and documentation of patient care-see progress notes.Discussed case with health care provider (Angle).Disposition: Benefits, risks and alternatives to transfer explained to patient. Transferred. [facility]. UTI(catheter associated) was not present prior to transfer. Pressure ulcer was not present prior to transfer.Vascular infection (catheter associated) was not present prior to transfer. 14 Clinical Report - Physicians/Mid Levels [facility] Emergency Department [address] [place] [address] Phone #: ext- [phone] 11/11/2020 13:14 Patient: ENID FUNG Sex: M : 1965 Age: 55yCLINICAL IMPRESSION Left nephrolithiasis. Chronic viral hepatitis C. No coma. Asymptomatic HIV illness. Uncomplicated alcohol intoxication with alcohol dependence. Severe acute and chronic iron deficiency anemia from chronic blood loss and anemia associated with chronic disease. ; abnormal CT of the abdomen and pelvis. (Complex structure at the anterior left kidney measuring 7 mm probably represents a cyst with adjacent calcification). (Vertebral plana at T12).(Electronically signed by Chandana Ba P.A.-C 11/12/2020 01:07) Name Value Range Interpretation Code Description Data Daisy e(s) Supporting Document(s) ID Date Data Source [id number] 11/11/2020 10:18:00 PM EST [facility] Name Value Range Interpretation Code Description Data [facility](s) Supporting Document(s) URINALYSIS [facility] lisa URINALYSIS SOURCE Clean Catch [facility] ital COLOR yellow NORMAL: Yellow [facility] CLARITY clear NORMAL: Clear [facility] spital Specific gravity of Urine by Test strip 1.005 1.001 - 1.030 [facility] pH 6 5 - [facility] Glucose [Mass/volume] in Urine by Test strip NORM NORMAL: Negat [facility] Bilirubin.total [Presence] in Urine by Test strip NEG NORMAL: Negative [facility] Ketones [Presence] in Urine by Test strip NEG NORMAL: Negative [facility] Protein [Mass/volume] in Urine by Test strip NEG NORMAL: Negat [facility] Nitrite [Presence] in Urine by Test strip NEG NORMAL: Negative [facility] BLOOD NEG NORMAL: Negative [facility] Leukocyte esterase [Presence] in Urine by Test strip NEG ROCIO L: Negative [facility] Urobilinogen [Mass/volume] in Urine by Test strip NOR less rafael n 1.0 mg/dL [facility] MICROSCOPIC Not Indicate [facility] ospital ID Date Data Source [id number] 11/11/2020 11:38:00 PM EST [facility] Name Value Range Interpretation Code Description Data Daisy rce(s) Supporting Document(s) [facility]TYPE [facility] RE-TYPE ABO group [Type] in Blood O [facility] Rh [Type] in Blood POSITIVE [facility] { ABO/RH RE-ENTER O POSITIVE ID Date Data Source [id number] 11/11/2020 09:47:00 PM EST [facility] Name Value Range Interpretation Code Description Data Daisy rce(s) Supporting Document(s) CBC W/AUTOMATED DIFF [facility] COMPLETE BLOOD COUNT Leukocytes [#/volume] in Blood by Automated count 5.9 10^3/uL 4.2 - 1 1.0 [facility] Erythrocytes [#/volume] in Blood by Automated count 2.10 10^6/uL 4. 50 - 6.30 L [facility] Hemoglobin [Mass/volume] in Blood 6.0 g/dL 14.0 - 16.0 LL [facility] CALL/ READ BACK JEISON KYLE ER [facility] BY: LJ [facility] DATE/TIME 11.11.202126 [facility] Hematocrit [Volume Fraction] of Blood by Automated count 20.5 % 4 1.0 - 51.0 L [facility] Erythrocyte mean corpuscular volume [Entitic volume] by Auto mated count 97.6 fL 80.0 - 94.0 H [facility] Erythrocyte mean corpuscular hemoglobin [Entitic mass] by Automated count 28.6 pg 27.0 - 34.0 [facility] Erythrocyte mean corpuscular hemoglobin concentration [Mass/volume] by Automated count 29.3 g/dL 31.0 - 36.0 L [facility] Erythrocyte distribution width [Ratio] by Automated count 21.5 % 11.5 - 14.8 H [facility] Platelets [#/volume] in Blood by Automated count 437 10^3/uL 150 - 45 0 [facility] Platelet mean volume [Entitic volume] in Blood by Automated count 9.5 fL 7.4 - 10.4 [facility] Neutrophils/100 leukocytes in Blood by Automated count 71.3 % 37. 0 - 80.0 [facility] Lymphocytes/100 leukocytes in Blood by Manual count 9.8 % 25.0 - 40.0 L [facility] Monocytes/100 leukocytes in Blood by Automated count 14.9 % 3.0 - 8.0 H [facility] Eosinophils/100 leukocytes in Blood by Automated count 2.0 % 0.0 - 7.0 [facility] Basophils/100 leukocytes in Blood by Automated count 0.8 % 0.0 - 2.0 [facility] %IG 1.2 % 0.0 - 0.0 H [facility] al %NRBC 0.7 % 0.0 - 0.0 H [facility] al Neutrophils [#/volume] in Blood by Automated count 4.20 10^3/uL 2.00 - 6.90 [facility] Lymphocytes [#/volume] in Blood by Automated count 0.58 10^3/uL 0.60 - 3.40 L [facility] Monocytes [#/volume] in Blood by Automated count 0.88 10^3/uL 0.00 - 0.90 [facility] Eosinophils [#/volume] in Blood by Automated count 0.12 10^3/uL 0.00 - 0.70 [facility] Basophils [#/volume] in Blood by Automated count 0.05 10^3/uL 0.00 - 0.20 [facility] #IG 0.07 10^3/uL 0.00 - 0.10 [facility] H ospital #NRBC 0.04 10^3/uL 0.00 - 0.00 H [facility] ospital MANUAL DIFF SEE BELOW [facility] ital Segmented neutrophils/100 leukocytes in Blood by Manual count 75 % 37 - 80 [facility] %LYMPH 14 % 25 - 40 L [facility] al %MONO 10 % 3 - 8 H [facility] %EOS 1 % 0 - 7 [facility] RBC MORPH SEE BELOW [facility] Anisocytosis [Presence] in Blood by Light microscopy 3+ ROCIO L: NONE SEEN A [facility] HYPO 3+ NORMAL: NONE SEEN A [facility] { SICKLE CELL (NORMAL: NONE SEEN ) Target cells [Presence] in Blood by Light microscopy 2+ ROCIO L: NONE SEEN A [facility] Platelet adequacy [Presence] in Blood by Light microscopy IN CREASED NORMAL: NORMAL A [facility] COMMENT: [email or web address] ED 11/11/20.TAD. . . ___ ID Date Data Source [id number] 11/11/2020 09:24:00 PM EST [facility] Name Value Range Interpretation Code Description Data Daisy rce(s) Supporting Document(s) Ethanol [Moles/volume] in Blood 92.0 MG/DL [facility] ALCOHOL % 0.09 % 0.00 - 0.01 H [facility] ital *FOR MEDICAL PURPOSES ONLY * ID Date Data Source [id number] 11/11/2020 09:24:00 PM [facility] Name Value Range Interpretation Code Description Data Daiys rce(s) Supporting Document(s) COMPREHENSIVE METABOLIC PANEL [facility] COMPREHENSIVE METABOLIC PANEL Sodium [Moles/volume] in Serum or Plasma 134 mEq/L 134 - 153 [facility] Potassium [Moles/volume] in Serum or Plasma 4.0 mEq/L 3.6 - 5.0 [facility] Chloride [Moles/volume] in Serum or Plasma 101 mEq/L 98 - 107 [facility] Carbon dioxide, total [Moles/volume] in Serum or Plasma 23 MEQ/L 22 - 30 [facility] Glucose [Mass/volume] in Serum or Plasma 81 MG/DL 65 - 110 [facility] BUN 6 MG/DL 7 - 21 L [facility] al Creatinine [Mass/volume] in Serum or Plasma 0.6 MG/DL 0.7 - 1.5 L [facility] BUN/CREAT 10 8 - 27 [facility] Protein [Mass/volume] in Serum or Plasma 5.0 G/DL 6.3 - 8.2 L [facility] Albumin [Mass/volume] in Serum or Plasma 2.9 G/DL 3.9 - 5.0 L [facility] Globulin [Mass/volume] in Serum by calculation 2.1 GM/DL 2.4 - 3.2 L [facility] A/G RATIO 1.4 0.8 - 2.0 [facility] Calcium [Mass/volume] in Serum or Plasma 8.2 MG/DL 8.4 - 10.2 L [facility] Bilirubin.total [Mass/volume] in Serum or Plasma <0.7 MG/DL 0.2 - 1.3 [facility] Alkaline phosphatase [Enzymatic activity/volume] in Serum or Plasma 90 U/L 38 - 126 [facility] Aspartate aminotransferase [Enzymatic activity/volume] in Serum or Plasma 19 U/L 5 - 40 [facility] Alanine aminotransferase [Enzymatic activity/volume] in Seru m or Plasma 10 U/L 7 - 56 [facility] Anion gap 3 in Serum or Plasma 10.0 mmol/L 8.0 - 16.0 [facility] AGE 55 yrs [facility] al NON-AA GFR >60 mL/min [facility] ital AFR AMER GFR >60 mL/min [facility] Ho spital Male GFR In terprentation 20-49 yrs >60 mL/min Normal 50-59 yrs >56 mL/min Normal 60-69 yrs >49 mL/min Normal 70-79yrs >42 mL/min Normal 80 and above >35 mL/min Normal Female GFR Interpretation 20-39 yrs >60 mL/min Normal 40-49 yrs >58 mL/min Normal 50-59 yrs >51 mL/min Normal 60-69 yrs >45 mL/min Normal 70-79 yrs >39 mL/min Normal 80 and above >32 mL/min Normal ID Date Data Source [id number] 11/11/2020 09:21:00 PM [facility] Name Value Range Interpretation Code Description Data Daisy rce(s) Supporting Document(s) TROPONIN T <0.01 NG/ML 0.00 - 0.10 [facility] ospital TROPONIN T0.1 ng/ml Recommended as the c linical threshold value forTroponin T. ID Date Data Source [id number] 11/11/2020 09:09:00 PM [facility] Value Range Interpretation Code Description Data Daisy rce(s) Supporting Document(s) Prothrombin time (PT) 13.2 SECONDS 11.0 - 15.5 [facility] INR in Platelet poor plasma by Coagulation assay 0.95 0.93 - 1. 23 [facility] \\BLDo\\INR INTERPRETATION\\BLDx\\ Therapeutic range for Coumadin and related oral anticoagulants. - International Normalized Ratio (INR): 2.0 - 3.0 for Venous Thrombosis, Pulmonary Embolus, Tissue heart valves, Acute IA, Atrial Fibrillation, Valvular heart disease and recurrent Systemic Embolism. -International Normalized Ratio (INR): 2.5 - 3.5 for Mechanical Prosthetic valve. ID Date Data Source [id number] 11/11/2020 09:05:00 PM [facility] Value Range Interpretation Code Description Data Daisy rce(s) Supporting Document(s) Lactate [Moles/volume] in Serum or Plasma 3.6 MMOL/L 0.2 - 2.2 [facility] CALL/ READ BACK DR NAGI HOLMAN [facility]11[facility]202104 [facility] ID Date Data Source [id number] 11/11/2020 07:45:00 PM EST [facility] Name Value Range Interpretation Code Description Data Daisy rce(s) Supporting Document(s) Influenza virus A Ag [Presence] in Nasopharynx by Immunoassa y NEGATIVE NORMAL: NEGATIVE [facility] Influenza virus B Ag [Presence] in Nasopharynx by Immunoassa y NEGATIVE NORMAL: NEGATIVE [facility] NEGATIVENEGATIVE PROCEDURAL CO NTROL VALID KIT LOT # [id number] 11/11/20.TAD. KIT EXP DATE _01.27.21 11/11/20.TAD.The Influenza A & B assay is a rapid molecular in vitro diagnostic testutilizing an isothermal nucleic acid amplification technology for thequalitative detection of influenza A and B viral RNA.Negative results do not preclude influenza virus infection and should not beused as the sole basis for diagnosis, treatment or other patient managementdecisions. ID Date Data Source [id number] 11/11/2020 07:18:00 PM EST [facility] Name Value Range Interpretation Code Description Data Daisy rce(s) Supporting Document(s) Ethanol [Moles/volume] in Blood 168.0 MG/DL [facility] ALCOHOL % 0.17 % 0.00 - 0.01 [facility] ital *FOR MEDICAL PURPOSES ONLY * ID Date Data Source [id number] 11/11/2020 05:30:00 PM EST [facility] Name Value Range Interpretation Code Description Data Daisy rce(s) Supporting Document(s) COVID-19 NOT DETECTED [facility] This lab was ordered by [facility] and reported by [facility]. ID Date Data Source [id number] 11/11/2020 05:30:00 PM EST [facility] Name Value Range Interpretation Code Description Data Daisy rce(s) Supporting Document(s) COVID-19 REENTER NOT DETECTED [facility] This lab was ordered by [facility] and reported by [facility]. ID Date Data Source [id number] 11/11/2020 06:08:00 PM EST [facility] Name Value Range Interpretation Code Description Data Daisy rce(s) Supporting Document(s) COVID-19 NOT DETECTED [facility] COVID-19 REENTER NOT DETECTED [facility] { PROCEDURAL CONTROL VALID KIT LOT # _[id number] 11/11/20.TAD. KIT EXP DATE _02.12.21 11/11/20.TAD. NORMAL RANGE IS NOT DETECTEDNEGATIVE RESULTS SHOULD BE TREATED PRESUMPTIVE AND, IF INCONSISTENT WITHCLINICAL SIGNS AND SYMPTOMS OR NECESSARY FOR PATIENT MANAGEMENT, SHOULD BETESTED WITH DIFFERENT AUTHORIZED OR CLEARED MOLECULAR TESTS. NEGATIVE RESULTSDO NOT PRECLUDE SARS-CoV-2 INFECTION AND SHOULD NOT BE USED THE SOLE BASISFOR PATIENT MANAGEMENT DECISIONS. ID Date Data Source [id number] 11/11/2020 05:44:00 PM [facility] Value Range Interpretation Code Description Data Daisy rce(s) Supporting Document(s) Lactate [Moles/volume] in Serum or Plasma 2.3 MMOL/L 0.2 - 2.2 H [facility] ID Date Data Source [id number] 11/11/2020 11:46:00 PM [facility] Value Range Interpretation Code Description Data Daisy rce(s) Supporting Document(s) CROSSMATCH [facility] lisa \\MRHx\\\\16PI\\\\LM10\\\\TM00\\ \\BLDo\\\\UN Do\\COMPATABILITY TESTING:\\UNDx\\\\BLDx\\ \\UNDo\\PATIENT INFORMATION\\UNDx\\ ABO group [Type] in Blood O [facility] Rh [Type] in Blood POSITIVE [facility] AB SCREEN NEGATIVE [facility] { ABO/RH RE-ENTER O POS{ AB SCREEN RE-ENTER NEGATIVE \\UNDo\\DONOR INFORMATION\\UNDx\\ UNIT NUMBER _[id number] 11/11/20.DW .CAH# 195 EXPIRATION DATE _011820211/11/20.DW .{ ABO/RH O NEG{ XMATCH RESULT COMPATIBLE{ [facility] ID Date Data Source [id number] 11/11/2020 11:39:00 PM [facility] Value Range Interpretation Code Description Data Daisy rce(s) Supporting Document(s) CROSSMATCH [facility] \\MRHx\\\\16PI\\\\LM10\\\\TM00\\ \\BLDo\\\\UN Do\\COMPATABILITY TESTING:\\UNDx\\\\BLDx\\ \\UNDo\\PATIENT INFORMATION\\UNDx\\ ABO group [Type] in Blood O [facility] Rh [Type] in Blood POSITIVE [facility] AB SCREEN NEGATIVE [facility] { ABO/RH RE-ENTER O POSITIVE{ AB SCREEN RE-ENTER NEGATIVE \\UNDo\\DONOR INFORMATION\\UNDx\\ UNIT NUMBER _[id number] 11/11/20.DW .CAH# 200 EXPIRATION DATE _02012021_ 11/11/20.DW .{ ABO/RH O POS{ XMATCH RESULT COMPATIBLE{ COMPONENT [facility] ID Date Data Source [id number] 11/11/2020 05:27:00 PM EST [facility] Value Range Interpretation Code Description Data Daisy rce(s) Supporting Document(s) TROPONIN T <0.01 NG/ML 0.00 - 0.10 [facility]ital TROPONIN T0.1 ng/ml Recommended as the c linical threshold value forTroponin T. ID Date Data Source [id number] 11/11/2020 04:17:00 PM [facility] Value Range Interpretation Code Description Data Daisy rce(s) Supporting Document(s) ABO group [Type] in Blood O [facility] Rh [Type] in Blood POSITIVE [facility] AB SCREEN NEGATIVE NORMAL: NEGATIVE [facility] { ABO/RH REENTER O POSITIVE{ AB SCREEN RE-ENTER NEGATIVE ID Date Data Source [id number] 11/11/2020 04:08:00 PM EST [facility] Name Value Range Interpretation Code Description Data Daisy rce(s) Supporting Document(s) aPTT in Blood by Coagulation assay 26.3 SECONDS 24.8 - 36.7 [facility] ID Date Data Source [id number] 11/11/2020 04:08:00 PM EST [facility] Value Range Interpretation Code Description Data Daisy rce(s) Supporting Document(s) Prothrombin time (PT) 13.0 SECONDS 11.0 - 15.5 [facility] INR in Platelet poor plasma by Coagulation assay 0.94 0.93 - 1. 23 [facility] \\BLDo\\INR INTERPRETATION\\BLDx\\ Therapeutic range for Coumadin and related oral anticoagulants. - International Normalized Ratio (INR): 2.0 - 3.0 for Venous Thrombosis, Pulmonary Embolus, Tissue heart valves, Acute IA, Atrial Fibrillation, Valvular heart disease and recurrent Systemic Embolism. -International Normalized Ratio (INR): 2.5 - 3.5 for Mechanical Prosthetic valve. ID Date Data Source [id number] 11/11/2020 03:49:00 PM EST [facility] Name Value Range Interpretation Code Description Data Daisy rce(s) Supporting Document(s) CBC W/AUTOMATED DIFF [facility] COMPLETE BLOOD COUNT Leukocytes [#/volume] in Blood by Automated count 9.7 10^3/uL 4.2 - 1 1.0 [facility] Erythrocytes [#/volume] in Blood by Automated count 2.47 10^6/uL 4. 50 - 6.30 L [facility] Hemoglobin [Mass/volume] in Blood 7.1 g/dL 14.0 - 16.0 L [facility] Hematocrit [Volume Fraction] of Blood by Automated count 24.1 % 4 1.0 - 51.0 L [facility] Erythrocyte mean corpuscular volume [Entitic volume] by Auto mated count 97.6 fL 80.0 - 94.0 H [facility] Erythrocyte mean corpuscular hemoglobin [Entitic mass] by Automated count 28.7 pg 27.0 - 34.0 [facility] Erythrocyte mean corpuscular hemoglobin concentration [Mass/volume] by Automated count 29.5 g/dL 31.0 - 36.0 L [facility] Erythrocyte distribution width [Ratio] by Automated count 21.6 % 11.5 - 14.8 H [facility] Platelets [#/volume] in Blood by Automated count 490 10^3/uL 150 - 45 0 H [facility] Platelet mean volume [Entitic volume] in Blood by Automated count 9.7 fL 7.4 - 10.4 [facility] Neutrophils/100 leukocytes in Blood by Automated count 71.3 % 37. 0 - 80.0 [facility] Lymphocytes/100 leukocytes in Blood by Manual count 13.2 % 25.0 - 40.0 L [facility] Monocytes/100 leukocytes in Blood by Automated count 12.4 % 3.0 - 8.0 H [facility] Eosinophils/100 leukocytes in Blood by Automated count 1.2 % 0.0 - 7.0 [facility] Basophils/100 leukocytes in Blood by Automated count 1.0 % 0.0 - 2.0 [facility] %IG 0.9 % 0.0 - 0.0 H [facility] %NRBC 0.5 % 0.0 - 0.0 H [facility] al Neutrophils [#/volume] in Blood by Automated count 6.89 10^3/uL 2.00 - 6.90 [facility] Lymphocytes [#/volume] in Blood by Automated count 1.28 10^3/uL 0.60 - 3.40 [facility] Monocytes [#/volume] in Blood by Automated count 1.20 10^3/uL 0.00 - 0.90 H [facility] Eosinophils [#/volume] in Blood by Automated count 0.12 10^3/uL 0.00 - 0.70 [facility] Basophils [#/volume] in Blood by Automated count 0.10 10^3/uL 0.00 - 0.20 [facility] #IG 0.09 10^3/uL 0.00 - 0.10 [facility] #NRBC 0.05 10^3/uL 0.00 - 0.00 H [facility] MANUAL DIFF SEE BELOW [facility] ital Segmented neutrophils/100 leukocytes in Blood by Manual count 77 % 37 - 80 [facility] %LYMPH 14 % 25 - 40 L [facility] al %MONO 6 % 3 - 8 [facility] al %EOS 3 % 0 - 7 [facility] al RBC MORPH SEE BELOW [facility] al Anisocytosis [Presence] in Blood by Light microscopy 2+ ROCIO L: NONE SEEN A [facility] HYPO 2+ NORMAL: NONE SEEN A [facility] { SICKLE CELL (NORMAL: NONE SEEN ) Target cells [Presence] in Blood by Light microscopy 2+ ROCIO L: NONE SEEN A [facility] Platelet adequacy [Presence] in Blood by Light microscopy IN CREASED NORMAL: NORMAL A [facility] COMMENT: ID Date Data Source [id number] 11/11/2020 03:25:00 PM EST [facility] Name Value Range Interpretation Code Description Data Daisy rce(s) Supporting Document(s) Ethanol [Moles/volume] in Blood 292.0 MG/DL [facility] ALCOHOL % 0.29 % 0.00 - 0.01 H [facility] *FOR MEDICAL PURPOSES ONLY * ID Date Data Source [id number] 11/11/2020 03:25:00 PM [facility] Name Value Range Interpretation Code Description Data Daisy rce(s) Supporting Document(s) COMPREHENSIVE METABOLIC PANEL [facility] COMPREHENSIVE METABOLIC PANEL Sodium [Moles/volume] in Serum or Plasma 132 mEq/L 134 - 153 L [facility] Potassium [Moles/volume] in Serum or Plasma 4.8 mEq/L 3.6 - 5.0 [facility] Chloride [Moles/volume] in Serum or Plasma 97 mEq/L 98 - 107 L [facility] Carbon dioxide, total [Moles/volume] in Serum or Plasma 23 MEQ/L 22 - 30 [facility] Glucose [Mass/volume] in Serum or Plasma 84 MG/DL 65 - 110 [facility] BUN 8 MG/DL 7 - 21 [facility] Creatinine [Mass/volume] in Serum or Plasma 0.6 MG/DL 0.7 - 1.5 L [facility] BUN/CREAT 13 8 - 27 [facility] Protein [Mass/volume] in Serum or Plasma 6.5 G/DL 6.3 - 8.2 [facility] Albumin [Mass/volume] in Serum or Plasma 3.8 G/DL 3.9 - 5.0 L [facility] Globulin [Mass/volume] in Serum by calculation 2.7 GM/DL 2.4 - 3.2 [facility] A/G RATIO 1.4 0.8 - 2.0 [facility] Calcium [Mass/volume] in Serum or Plasma 9.5 MG/DL 8.4 - 10.2 [facility] Bilirubin.total [Mass/volume] in Serum or Plasma <0.7 MG/DL 0.2 - 1.3 [facility] Alkaline phosphatase [Enzymatic activity/volume] in Serum or Plasma 109 U/L 38 - 126 [facility] Aspartate aminotransferase [Enzymatic activity/volume] in Serum or Plasma 23 U/L 5 - 40 [facility] Alanine aminotransferase [Enzymatic activity/volume] in Seru m or Plasma 13 U/L 7 - 56 [facility] Anion gap 3 in Serum or Plasma 12.0 mmol/L 8.0 - 16.0 [facility] AGE 55 yrs [facility] NON-AA GFR >60 mL/min [facility] ital AFR AMER GFR >60 mL/min [facility] Male GFR In terprentation 20-49 yrs >60 mL/min Normal 50-59 yrs >56 mL/min Normal 60-69 yrs >49 mL/min Normal 70-79yrs >42 mL/min Normal 80 and above >35 mL/min Normal Female GFR Interpretation 20-39 yrs >60 mL/min Normal 40-49 yrs >58 mL/min Normal 50-59 yrs >51 mL/min Normal 60-69 yrs >45 mL/min Normal 70-79 yrs >39 mL/min Normal 80 and above >32 mL/min Normal ID Date Data Source [id number] 11/11/2020 03:25:00 PM [facility] Name Value Range Interpretation Code Description Data Daisy rce(s) Supporting Document(s) Lipase [Enzymatic activity/volume] in Serum or Plasma 55 U/L 13 - 60 [facility] ID Date Data Source [id number] 11/11/2020 03:24:00 PM [facility] Name Value Range Interpretation Code Description Data Daisy rce(s) Supporting Document(s) OCCULT BLOOD NEGATIVE NORMAL: NEGATIVE [facility] OCCULT BLOOD REENTER NEGATIVE NORMAL: NEGATIVE [facility] { HEMOCCULT LOT # [id number] 1L ){ LOT EXP DATE 03/28 ){ PROCEDURAL CONTROL POS/NEG VALID ) ID Date Data Source [id number] 11/06/2020 10:20:00 AM EST [facility]) Name Value Range Interpretation Code Description Data Daisy rce(s) Supporting Document(s) total 25(oh) vitamin D 50.3 NG/mL 30.0-100.0 Total 25(Oh) Vitamin D [place] ([facility]) ID Date Data Source [id number] 11/06/2020 10:20:00 AM EST [facility] ([facility]) Name Value Range Interpretation Code Description Data Daisy rce(s) Supporting Document(s) thyroid stimulating hormone 2.990 uIU/mL 0.358-3.740 Thyroid Stimulating Hormone [place] ([facility]) ID Date Data Source [id number] 11/06/2020 10:20:00 AM EST [facility] ([facility]) Name Value Range Interpretation Code Description Data Daisy rce(s) Supporting Document(s) triglycerides level 66 mg/dL <150 Triglycerides [place] [facility] ([facility]) cholesterol level 142 mg/dL <200 Cholesterol Level [facility] ([facility]) HDL cholesterol 93 mg/dL >40 HDL Cholesterol ATHE NA ([facility]) cholesterol risk ratio <5 Cholesterol R isk Ratio [facility] ([facility]) non-HDL-C 49 mg/dL Non-hdl-c [facility] ([facility]) Cholesterol in LDL [Mass/volume] in Serum or Plasma 36 mg/dL <1 00 LDL Cholesterol [facility] ([facility]) ID Date Data Source [id number] 11/06/2020 10:20:00 AM EST [facility] ([facility]) Name Value Range Interpretation Code Description Data Daisy rce(s) Supporting Document(s) glucose, fasting 74 mg/dL 70-100 Glucose, Fasting AT [facility] ([facility]) blood urea nitrogen 6 mg/dL 7-18 Below low normal Blood Urea Nitrogen [facility] ([facility]) creatinine for GFR 0.66 mg/dL 0.70-1.30 Below low normal Creatinine for GFR [facility] ([facility]) sodium level 134 mEq/L 136-145 Below low normal Sodium Level [facility] ([facility]) glomerular filtration rate > 60.0 >56 Glomerula r Filtration Rate [facility] ([facility]) chloride level 102 mEq/L 98-107 Chloride Level [facility] ([facility]) potassium serum 4.0 mEq/L 3.5-5.1 Potassium Serum [facility] ([facility]) anion gap 6 mEq/L 8-16 Below low normal Anion Gap [facility] ( [facility]) carbon dioxide level 26 mEq/L 21-32 Carbon Dioxide Level [facility] ([facility]) calcium level 8.5 mg/dL 8.5-10.1 Calcium Level [facility] ( [facility]) AST/SGOT 17 U/L 7-37 AST/SGOT [facility] ([facility]) ALT/SGPT 15 U/L 12-78 ALT/SGPT [facility] ([facility]) alkaline phosphatase 115 U/L 45-117 Alkaline Phosph atase [facility] ([facility]) bilirubin,total 0.3 mg/dL 0.2-1.0 Bilirubin,total AT[facility] ([facility]) albumin/globulin ratio Albumin/globu fermin Ratio [facility] ([facility]) albumin 2.7 gm/dL 3.2-5.2 Below low normal Albumin [facility] ( [facility]) total protein 6.5 gm/dL 6.4-8.2 Total Protein [facility] ( [facility]) ID Date Data Source [id number] 11/06/2020 10:20:00 AM EST [facility] ([facility]) Name Value Range Interpretation Code Description Data Daisy rce(s) Supporting Document(s) white blood count 10.1 10 4.0-10.0 Above high normal White Blood Count [facility] ([facility]) red blood count 2.45 10 4.30-6.10 Below low normal Red Blood Coun t [facility] ([facility]) hemoglobin 7.1 g/dL 13.5-17.5 Below low normal Hemoglobin [facility] ( [facility]) hematocrit 24.1 % 42.0-52.0 Below low normal Hematocrit [facility] ( [facility]) mean corpuscular hemoglobin 29.0 pg 27.0-33.0 Mean Cor puscular Hemoglobin [facility] ([facility]) mean corpuscular HGB conc 29.5 g/dL 32.0-36.5 Below low rocio l Mean Corpuscular HGB Conc [facility] ([facility]) mean corpuscular volume 98.4 fL 80.0-96.0 Above high normal Mean Corpuscular Volume [facility] ([facility]) red cell distribution width 21.5 % 11.5-14.5 Above high no rmal Red Cell Distribution Width [facility] ([facility]) platelet count, automated 457 10 150-450 Above high norm al Platelet Count, Automated [facility] ([facility]) lymph % 7.9 % 24.0-44.0 Below low normal Lymph % [facility] ( [facility]) neutrophils % 71.9 % 36.0-66.0 Above high normal Neutrophils % A [facility] ([facility]) eos % 1.4 % 0.0-3.0 Eos % [facility] ([facility]) baso % 1.2 % 0.0-1.0 Above high normal Baso % [facility] ([facility]) mono % 16.8 % 0.0-5.0 Above high normal Branch % [facility] ([facility]) immature granulocyte % 0.8 % 0-3.0 Immature Gran ulocyte % [facility] ([facility]) lymph # 0.8 10 1.5-5.0 Below low normal Lymph # [facility] ( [facility]) nucleated red blood cell % 0.3 % 0-0 Above high nor mal Nucleated Red Blood Cell % [facility] ([facility]) neutrophils # 7.3 10 1.5-8.5 Neutrophils # [facility] ( [facility]) mono # 1.7 10 0.0-0.8 Above high normal Branch # [facility] ([facility]) baso # 0.1 10 0.0-0.2 Baso # [facility] ([facility]) eos # 0.1 10 0.0-0.5 Eos # [facility] ([facility]) ID Date Data Source [id number] 11/06/2020 10:20:00 AM EST [facility] ([facility]) Name Value Range Interpretation Code Description Data Daisy rce(s) Supporting Document(s) total 25(oh) vitamin D 50.3 NG/mL 30.0-100.0 Total 25(Oh) Vitamin D [place] ([facility]) ID Date Data Source [id number] 11/06/2020 10:20:00 AM EST [facility] ([facility]) Name Value Range Interpretation Code Description Data Daisy rce(s) Supporting Document(s) thyroid stimulating hormone 2.990 uIU/mL 0.358-3.740 Thyroid Stimulating Hormone [place] ([facility]) ID Date Data Source [id number] 11/06/2020 10:20:00 AM EST [facility] ([facility]) Name Value Range Interpretation Code Description Data Daisy rce(s) Supporting Document(s) cholesterol level 142 mg/dL <200 Cholesterol Level [facility] ([facility]) triglycerides level 66 mg/dL <150 Triglycerides [place] [facility] ([facility]) HDL cholesterol 93 mg/dL >40 HDL Cholesterol [facility] ([facility]) non-HDL-C 49 mg/dL Non-hdl-c [facility] ([facility]) Cholesterol in LDL [Mass/volume] in Serum or Plasma 36 mg/dL <1 00 LDL Cholesterol [facility] ([facility]) cholesterol risk ratio <5 Cholesterol R isk Ratio [facility] ([facility]) ID Date Data Source [id number] 11/06/2020 10:20:00 AM EST [facility] ([facility]) Name Value Range Interpretation Code Description Data Daisy rce(s) Supporting Document(s) glucose, fasting 74 mg/dL 70-100 Glucose, Fasting AT [facility] ([facility]) blood urea nitrogen 6 mg/dL 7-18 Below low normal Blood Urea Nitrogen [facility] ([facility]) creatinine for GFR 0.66 mg/dL 0.70-1.30 Below low normal Creatinine for GFR [facility] ([facility]) glomerular filtration rate > 60.0 >56 [place]omer[place] r Filtration Rate [facility] ([facility]) potassium serum 4.0 mEq/L 3.5-5.1 Potassium Serum [facility] ([facility]) sodium level 134 mEq/L 136-145 Below low normal Sodium Level [facility] ([facility]) chloride level 102 mEq/L 98-107 Chloride Level [facility] ([facility]) carbon dioxide level 26 mEq/L 21-32 Carbon Dioxide Level [facility] ([facility]) calcium level 8.5 mg/dL 8.5-10.1 Calcium Level [facility] ( [facility]) AST/SGOT 17 U/L 7-37 AST/SGOT [facility] ([facility]) anion gap 6 mEq/L 8-16 Below low normal Anion Gap [facility] ( [facility]) ALT/SGPT 15 U/L 12-78 ALT/SGPT [facility] ([facility]) bilirubin,total 0.3 mg/dL 0.2-1.0 Bilirubin,total [facility] ([facility]) alkaline phosphatase 115 U/L 45-117 Alkaline Phosph atase [facility] ([facility]) albumin/globulin ratio Albumin/globu fermin Ratio [facility] ([facility]) total protein 6.5 gm/dL 6.4-8.2 Total Protein [facility] ( [facility]) albumin 2.7 gm/dL 3.2-5.2 Below low normal Albumin [facility] ( [facility]) ID Date Data Source [id number] 11/06/2020 10:20:00 AM EST [facility] ([facility]) Name Value Range Interpretation Code Description Data Daisy rce(s) Supporting Document(s) red blood count 2.45 10 4.30-6.10 Below low normal Red Blood Coun t [place] ([facility]) white blood count 10.1 10 4.0-10.0 Above high normal White Blood Count [facility] ([facility]) hematocrit 24.1 % 42.0-52.0 Below low normal Hematocrit [facility] ( [facility]) hemoglobin 7.1 g/dL 13.5-17.5 Below low normal Hemoglobin [facility] ( [facility]) mean corpuscular volume 98.4 fL 80.0-96.0 Above high normal Mean Corpuscular Volume [facility] ([facility]) mean corpuscular HGB conc 29.5 g/dL 32.0-36.5 Below low rocio l Mean Corpuscular HGB Conc [facility] ([facility]) red cell distribution width 21.5 % 11.5-14.5 Above high no rmal Red Cell Distribution Width [facility] ([facility]) mean corpuscular hemoglobin 29.0 pg 27.0-33.0 Mean Cor puscular Hemoglobin [facility] ([facility]) lymph % 7.9 % 24.0-44.0 Below low normal Lymph % [facility] ( [facility]) neutrophils % 71.9 % 36.0-66.0 Above high normal Neutrophils % A [facility] ([facility]) platelet count, automated 457 10 150-450 Above high norm al Platelet Count, Automated [facility] ([facility]) mono % 16.8 % 0.0-5.0 Above high normal Branch % [facility] ([facility]) baso % 1.2 % 0.0-1.0 Above high normal Baso % [facility] ([facility]) eos % 1.4 % 0.0-3.0 Eos % [facility] ([facility]) immature granulocyte % 0.8 % 0-3.0 Immature Gran ulocyte % [facility] [facility] lymph # 0.8 10 1.5-5.0 Below low normal Lymph # EVA ( [facility]) nucleated red blood cell % 0.3 % 0-0 Above high nor mal Nucleated Red Blood Cell % EVA ([facility]) neutrophils # 7.3 10 1.5-8.5 Neutrophils # EVA ( [facility]) mono # 1.7 10 0.0-0.8 Above high normal Branch # EVA ([facility]) eos # 0.1 10 0.0-0.5 Eos # EVA ([facility]) baso # 0.1 10 0.0-0.2 Baso # EVA ([facility]) ID Date Data Source [id number] 11/06/2020 10:20:00 AM EST EVA ([facility]) Name Value Range Interpretation Code Description Data Daisy rce(s) Supporting Document(s) total 25(oh) vitamin D 50.3 NG/mL 30.0-100.0 Total 25(Oh) Vitamin D EVA ([facility]) ID Date Data Source [id number] 11/06/2020 10:20:00 AM EST [facility]A ([facility]) Name Value Range Interpretation Code Description Data Daisy rce(s) Supporting Document(s) thyroid stimulating hormone 2.990 uIU/mL 0.358-3.740 Thyroid Stimulating Hormone EVA ([facility]) ID Date Data Source [id number] 11/06/2020 10:20:00 AM EST EVA ([facility]) Name Value Range Interpretation Code Description Data Daisy rce(s) Supporting Document(s) triglycerides level 66 mg/dL <150 Triglycerides [place] EVA ([facility]) cholesterol risk ratio <5 Cholesterol R isk Ratio EVA ([facility]) Cholesterol in LDL [Mass/volume] in Serum or Plasma 36 mg/dL <1 00 LDL Cholesterol EVA ([facility]) cholesterol level 142 mg/dL <200 Cholesterol Level EVA ([facility]) non-HDL-C 49 mg/dL Non-hdl-c EVA ([facility]) HDL cholesterol 93 mg/dL >40 HDL Cholesterol ATHE NA ([facility]) ID Date Data Source [id number] 11/06/2020 10:20:00 AM EST EVA ([facility]) Name Value Range Interpretation Code Description Data Daisy rce(s) Supporting Document(s) glucose, fasting 74 mg/dL 70-100 Glucose, Fasting AT [facility] ([facility]) sodium level 134 mEq/L 136-145 Below low normal Sodium Level ATHE NA ([facility]) creatinine for GFR 0.66 mg/dL 0.70-1.30 Below low normal Creatinine for GFR EVA ([facility]) glomerular filtration rate > 60.0 >56 Glomerula r Filtration Rate EVA ([facility]) blood urea nitrogen 6 mg/dL 7-18 Below low normal Blood Urea Nitrogen EVA ([facility]) potassium serum 4.0 mEq/L 3.5-5.1 Potassium Serum ATHE NA ([facility]) carbon dioxide level 26 mEq/L 21-32 Carbon Dioxide Level EVA ([facility]) anion gap 6 mEq/L 8-16 Below low normal Anion Gap EVA ( [facility]) chloride level 102 mEq/L 98-107 Chloride Level EVA ([facility]) ALT/SGPT 15 U/L 12-78 ALT/SGPT EVA ([facility]) bilirubin,total 0.3 mg/dL 0.2-1.0 Bilirubin,total ATHE NA ([facility]) calcium level 8.5 mg/dL 8.5-10.1 Calcium Level EVA ( [facility]) AST/SGOT 17 U/L 7-37 AST/SGOT EVA ([facility]) alkaline phosphatase 115 U/L 45-117 Alkaline Phosph atase EVA ([facility]) total protein 6.5 gm/dL 6.4-8.2 Total Protein EVA ( [facility]) albumin 2.7 gm/dL 3.2-5.2 Below low normal Albumin EVA ( [facility]) albumin/globulin ratio Albumin/globu fermin Ratio EVA ([facility]) ID Date Data Source [id number] 11/06/2020 10:20:00 AM EST [place] ([facility]) Name Value Range Interpretation Code Description Data Daisy rce(s) Supporting Document(s) red blood count 2.45 10 4.30-6.10 Below low normal Red Blood Coun t [place] ([facility]) white blood count 10.1 10 4.0-10.0 Above high normal White Blood Count [place] ([facility]) mean corpuscular volume 98.4 fL 80.0-96.0 Above high normal Mean Corpuscular Volume EVA ([facility]) hemoglobin 7.1 g/dL 13.5-17.5 Below low normal Hemoglobin EVA ( [facility]) mean corpuscular hemoglobin 29.0 pg 27.0-33.0 Mean Cor puscular Hemoglobin EVA ([facility]) hematocrit 24.1 % 42.0-52.0 Below low normal Hematocrit EVA ( [facility]) red cell distribution width 21.5 % 11.5-14.5 Above high no rmal Red Cell Distribution Width EVA ([facility]) platelet count, automated 457 10 150-450 Above high norm al Platelet Count, Automated EVA ([facility]) mean corpuscular HGB conc 29.5 g/dL 32.0-36.5 Below low rocio l Mean Corpuscular HGB Conc EVA ([facility]) lymph % 7.9 % 24.0-44.0 Below low normal Lymph % EVA ( [facility]) neutrophils % 71.9 % 36.0-66.0 Above high normal Neutrophils % A THENA ([facility]) eos % 1.4 % 0.0-3.0 Eos % EVA ([facility]) mono % 16.8 % 0.0-5.0 Above high normal Branch % EVA ([facility]) nucleated red blood cell % 0.3 % 0-0 Above high nor mal Nucleated Red Blood Cell % EVA ([facility]) neutrophils # 7.3 10 1.5-8.5 Neutrophils # EVA ( [facility]) baso % 1.2 % 0.0-1.0 Above high normal Baso % EVA ([facility]) immature granulocyte % 0.8 % 0-3.0 Immature Gran ulocyte % EVA ([facility]) lymph # 0.8 10 1.5-5.0 Below low normal Lymph # EVA ( [facility]) baso # 0.1 10 0.0-0.2 Baso # EAV ([facility]) mono # 1.7 10 0.0-0.8 Above high normal Branch # EVA ([facility]) eos # 0.1 10 0.0-0.5 Eos # EVA ([facility]) ID Date Data Source [id number] 11/06/2020 10:20:00 AM EST [facility] ([facility]) Name Value Range Interpretation Code Description Data Daisy rce(s) Supporting Document(s) total 25(oh) vitamin D 50.3 NG/mL 30.0-100.0 Total 25(Oh) Vitamin D EVA ([facility]) ID Date Data Source [id number] 11/06/2020 10:20:00 AM EST [facility]A ([facility]) Name Value Range Interpretation Code Description Data Daisy rce(s) Supporting Document(s) thyroid stimulating hormone 2.990 uIU/mL 0.358-3.740 Thyroid Stimulating Hormone EVA ([facility]) ID Date Data Source [id number] 11/06/2020 10:20:00 AM EST [facility] ([facility]) Name Value Range Interpretation Code Description Data Daisy rce(s) Supporting Document(s) HDL cholesterol 93 mg/dL >40 HDL Cholesterol ATHE ([facility]) Cholesterol in LDL [Mass/volume] in Serum or Plasma 36 mg/dL <1 00 LDL Cholesterol EVA ([facility]) triglycerides level 66 mg/dL <150 Triglycerides [place] EVA ([facility]) cholesterol level 142 mg/dL <200 Cholesterol Level EVA ([facility]) cholesterol risk ratio <5 Cholesterol R isk Ratio EVA ([facility]) non-HDL-C 49 mg/dL Non-hdl-c EVA ([facility]) ID Date Data Source [id number] 11/06/2020 10:20:00 AM EST [facility]A ([facility]) Name Value Range Interpretation Code Description Data Daisy rce(s) Supporting Document(s) glucose, fasting 74 mg/dL 70-100 Glucose, Fasting AT [facility]) blood urea nitrogen 6 mg/dL 7-18 Below low normal Blood Urea Nitrogen EVA ([facility]) creatinine for GFR 0.66 mg/dL 0.70-1.30 Below low normal Creatinine for GFR EVA ([facility]) glomerular filtration rate > 60.0 >56 Glomerula r Filtration Rate EVA ([facility]) sodium level 134 mEq/L 136-145 Below low normal Sodium Level ATHE ([facility]) potassium serum 4.0 mEq/L 3.5-5.1 Potassium Serum ATHE ([facility]) calcium level 8.5 mg/dL 8.5-10.1 Calcium Level EVA ( [facility]) carbon dioxide level 26 mEq/L 21-32 Carbon Dioxide Level EVA ([facility]) chloride level 102 mEq/L 98-107 Chloride Level EVA ([facility]) AST/SGOT 17 U/L 7-37 AST/SGOT EVA ([facility]) anion gap 6 mEq/L 8-16 Below low normal Anion Gap EVA ( [facility]) alkaline phosphatase 115 U/L 45-117 Alkaline Phosph atase EVA ([facility]) ALT/SGPT 15 U/L 12-78 ALT/SGPT EVA ([facility]) bilirubin,total 0.3 mg/dL 0.2-1.0 Bilirubin,total ATHE NA ([facility]) total protein 6.5 gm/dL 6.4-8.2 Total Protein EVA ( [facility]) albumin/globulin ratio Albumin/globu fermin Ratio EVA ([facility]) albumin 2.7 gm/dL 3.2-5.2 Below low normal Albumin EVA ( [facility]) ID Date Data Source [id number] 11/06/2020 10:20:00 AM EST [facility] ([facility]) Name Value Range Interpretation Code Description Data Daisy rce(s) Supporting Document(s) white blood count 10.1 10 4.0-10.0 Above high normal White Blood Count EVA ([facility]) red blood count 2.45 10 4.30-6.10 Below low normal Red Blood Coun t EVA ([facility]) hemoglobin 7.1 g/dL 13.5-17.5 Below low normal Hemoglobin EVA ( [facility]) hematocrit 24.1 % 42.0-52.0 Below low normal Hematocrit EVA ( [facility]) mean corpuscular volume 98.4 fL 80.0-96.0 Above high normal Mean Corpuscular Volume EVA ([facility]) mean corpuscular hemoglobin 29.0 pg 27.0-33.0 Mean Cor puscular Hemoglobin EVA ([facility]) mean corpuscular HGB conc 29.5 g/dL 32.0-36.5 Below low rocio l Mean Corpuscular HGB Conc EVA ([facility]) neutrophils % 71.9 % 36.0-66.0 Above high normal Neutrophils % A THENA ([facility]) lymph % 7.9 % 24.0-44.0 Below low normal Lymph % [place] ( [facility]) platelet count, automated 457 10 150-450 Above high norm al Platelet Count, Automated EVA ([facility]) red cell distribution width 21.5 % 11.5-14.5 Above high no rmal Red Cell Distribution Width EVA ([facility]) mono % 16.8 % 0.0-5.0 Above high normal Branch % [place] ([facility]) eos % 1.4 % 0.0-3.0 Eos % [place] ([facility]) immature granulocyte % 0.8 % 0-3.0 Immature Gran ulocyte % [place] ([facility]) baso % 1.2 % 0.0-1.0 Above high normal Baso % [place] ([facility]) mono # 1.7 10 0.0-0.8 Above high normal Branch # [place] ([facility]) neutrophils # 7.3 10 1.5-8.5 Neutrophils # [place] ( [facility]) nucleated red blood cell % 0.3 % 0-0 Above high nor mal Nucleated Red Blood Cell % EVA ([facility]) lymph # 0.8 10 1.5-5.0 Below low normal Lymph # [place] ( [facility]) eos # 0.1 10 0.0-0.5 Eos # EVA ([facility]) baso # 0.1 10 0.0-0.2 Baso # EVA ([facility]) ID Date Data Source [id number] 08/13/2020 01:20:32 PM EDT [facility] Measurements & CalculationsHeight: 62 inches (5 ft. 2 in.) 157.48 cm Weight: 104 pounds 47.27 kg Body Mass Index (BMI): 19.09BMI Interpretation: Healthy WeightBody Surface Area (BSA): 1.45Weight Management Education Done (Nutrition/Physical Activity)Vital SignsTemperature: 97.8FPulse Rate: 87 beats/minuteRespiratory Rate: 14 respirations/minuteBlood Pressure: 117/80 O2 Saturation: 95% Vital Signs performed by: Amy Field LPN, August 13, 2020 1:28 PMVital Signs performed by: Amy Field LPN, August 13, 2020 1:28 PMInitial Intake Information From: patientRoom #: 8Infectious Disease / Travel ScreeningRecent travel for you or any close contacts? NoHave you had any close contact with anyone diagnosed with or under investigation for COVID-19 (coronavirus)? NoFever? NoRespiratory symptoms: cough, cold, congestion, shortness of breath, difficulty breathing? YesLoss of smell? NoLoss of taste? NoDetails: smoker,copdSmoking, Tobacco, Vaping or Smoke Exposure StatusSmoke Status: current every day smokerTobacco Use: YesAdv to Quit: YesDo you vape? NoPassive Smoke Exposure: NoHealthcare HistorySince your last office visit...Have you been admitted to the hospital? NoHave you been to an emergency room (ER) or urgent care clinic? NoHave you seen another healthcare provider? Yes - Dr Marquez Have you seen a dentist? NoIntake performed by: Amy Field LPN, August 13, 2020 1:24 PMRate Your HealthIn general, would you say your health is? PoorPain AssessmentAre you currently having any pain which... You would like your provider to address? No Affects your activity level? NoDepression Screening - PHQ-2Over the last two weeks, have you... Had little interest or pleasure in doing things? Not at all Been feeling down, depressed, or hopeless? Not at all PHQ-2 Score: 0Anxiety Screening - GELY-2Over the last two weeks, have you been... Feeling nervous, anxious, or on edge? Not at all Unable to stop or control worrying? Not at all GELY-2 Score: 0Food InsecurityWithin the past year...Did you worry whether your food would run out before you got money to buy more? Never trueWas there a time when the food you bought didn't last and you didn't have money to get more? Never trueScreening, Brief Intervention, & Referral to Treatment (SBIRT)Pre-Screening Questions How many times have you have 5 or more drinks in a day? 365How many times have you used an illegal drug or used a prescription medication for a non-medical reason? 0Performed by: Amy Field LPN, August 13, 2020 1:28 PMPatient History Medica l History:HIVSurgical History:unremarkable Family History:unremarkableSocial/Personal History: Advised to Quit/Tobacco Education: YesChief Complaintfollow-up visit lab results room 8History of Present Illness (HPI)55 YO male here for follow up on labs would like flu vaccine this visit Pt states still dark stool. Pt states didnt hear anything from specialist as yet. Pt provided Phone number to reach out to GI provider. Pt states taking medications as prescribed. Pt states healthy diet and physical activities. Pt is accompanied by his Brother in law today. HPI performed by: Alaina WHEELER, August 13, 2020 2:13 PMTransitions of Care InboundProblem ReviewProblem List was reviewed and/or updated during this visit.Medication Reconciliation & ReviewMedication List was reviewed and/or updated during this visit, including review of any [id number] medications, herbal therapies, and/or supplements.Allergy ReviewAllergy List was reviewed and/or updated during this visit.Adult Preventive CareProvider Calculated and Reviewed all Clinical Protocols for patient today. Screening Tobacco Screening: Smoking Status: current every day smoker (08/13/2020) Tobacco Use: Currently (08/13/2020) Adv ised to Quit: Yes (08/13/2020)Labs/Meds/Other Counseling-Nutrition and Physical Activity:BMI Interpretation: Healthy Weight (08/13/2020) Counseling: Done (08/13/2020) Physical Activity: Done (08/13/2020)Cancer Screening ColonoscopyReviewed:Previous Comments: Pt needs colonoscopy (07/09/2020)Today's Comments: still needs referral, sees DR Marquez Review of Systems General: Denies loss of appetite, chills, dizziness, fatigue, fever, continued fever, headache, feeling ill, sweats, night sweats, sleep disturbances, weight loss. Eyes: Denies blurring of vision, double vision, irritation, discharge, vision loss, eye pain, eye swelling, droopy eyelid, sensitivity to light, redness, itching. Ears/Nose/Throat: Denies earache, ear discharge, ringing in ears, decreased hearing, nasal congestion, nosebleeds, runny nose, sore throat, hoarseness, difficulty swallowing, dry mouth, tooth pain, bleeding gums, swollen glands. Cardiovascular: Denies chest pain, palpitations, feeling faint, trouble breathing w/exertion, SOB upon lying down, SOB at night, peripheral edema, elevated blood pressure, decreased heart rate. Respiratory: Denies cough, difficulty breathing, shortness of breath, excessive sputum, coughing up blood, wheezing, chest pain. Gastrointestinal: Complains of abdominal pain. Denies nausea, vomiting, bleeding, burning, itching, irritation, cramps, diarrhea, constipation, blood in stool, black or tarry stools. Genitourinary: Denies urinary incontinence, pain with urination, burning with urination, urinary frequency, urinary hesitancy, urinary urgency, urinary urgency at night, incomplete emptying, blood in urine, painful intercourse, decreased libido, impotence, penile discharge, penile sores, genital foul odor, genital sores, genital burning, genital itching, genital warts, anal discharge, anal sores, anal warts. Musculoskeletal: Denies back pain, joint pain, leg pain, other pain-see comments, joint swelling, body aches, muscle aches, muscle cramps, muscle weakness, stiffness, recent injury. Skin: Denies rash, hives, redness, itching, dryness, nail changes, suspicious lesions, athlete's foot, rash on palms, rash on bottom of feet. Neurologic: Denies muscle impairment, weakness, numbness/tingling, seizures, slurred speech, feeling faint, tremors, vertigo, paralysis on one side, paralysis on both sides. Psychiatric: Denies depression, anxiety, memory loss, mental disturbance, suicidal ideation, homicidal ideation, hallucinations, paranoia, feeling stressed, hearing voices. Endocrine: Denies cold intolerance, heat intolerance, excessive thirst, excessive hunger, excessive urination, weight loss, weight gain. Heme/Lymphatic: Denies abnormal bruising, bleeding, enlarged lymph nodes. Physical ExamGeneral Appearance: well nourished, well hydrated, no acute distressEyes, External: conjunctivae and lids normal, EOMIRespiratory, Auscultation: clear to auscultation bilaterally; no rales, rhonchi, or wheezesRespiratory, Effort: no intercostal retractions or use of accessory mus clesCardiovascular, Auscultation: S1, S2 audible; no murmur, rub, or gallop; RRRPeripheral Circulation: no clubbing, cyanosis, edema, or varicositiesAbdomen: soft, non-tender, no masses, bowel sounds normalGait & Station: normalSkin, Inspection: no rashes, lesions, or ulcerationsOrientation: oriented to time, place, and personMood & Affect: no depression, anxiety, or agitationJudgment & Insight: need further assessment, receives assistance from familyCare Management Plan Transitions of CareInboundRate Your HealthIn general, would you say your health is? PoorAssessment & Plan Problems:Added: Alcohol dependence, uncomplicated (DLQ62-O79.20) Assessment: Instructions: Please try to cut back on alcohol intake with a goal to quit.Urinary tract infection, site not specified (GGK91-B66.0) Assessment: Instructions: We have sent a prescription to your pharmacy today. Please take medication as prescribed. Please report any major side evvects.Please try to maintain good personal hy giene. Please try to maintain agequate intake of water daily.Needs influenza immunization (ICD-V04.81) (MBV25-H51.3) Assessment: Instructions: You have had your flu vaccine done today. There may be soreness at the injection site. Please report any adverse reactions.Hematochezia (ICD-578.1) (TRR63-H11.1) Assessment: Instructions: Please call GI specialist to schedule an appointment. Phone number [phone] consulting for explanation of examination or test findings (ICD-V65.8) (MEX84-J52.2) Assessment: Instructions: We have reviewed your lab results with you today.Assessed:HIV p ositive (ICD-V08) (TAW49-J88) Assessment: Instructions: Please continue medications as prescribed. Please continue to follow with Dr Marquez as scheduled.Chronic obstructive pulmonary disease, unspecified (NWI25-R94.9) Assessment: Instructions: Please try to avoid / cut back on your smoking with a goal to quit. please continue your inhaler as prescribed.Other iron deficiency anemias (IKQ06-R46.8) Assessment: Instructions: Please continue your iron medication as prescribed. Please continue healthy diet and physical activities.Nicotine dependence, unspecified, uncomplicated (ZIK92-S16.200) Assessment: Instructions: Please continue to try to cut back on your smoking with a goal to quit.Assessment not SavedAnxiety depression (HTT88-Z43.8): Patient Instructions/Care Plan: HIV positive: Please continue medications as prescribed. Please continue to follow with Dr Marquez as scheduled.Chronic obstructive pulmonary disease- unspecified: Please try to avoid / cut back on your smoking with a goal to quit. please continue your inhaler as prescribed.Other iron deficiency anemias: Please continue your iron medication as prescribed. Please continue healthy diet and physical activities.Alcohol d ependence- uncomplicated: Please try to cut back on alcohol intake with a goal to quit.Nicotine dependence- unspecified- uncomplicated: Please continue to try to cut back on your smoking with a goal to quit.Urinary tract infection- site not specified: We have sent a prescription to your pharmacy today. Please take medication as prescribed. Please report any major side evvects.Please try to maintain good personal hygiene. Please try to maintain agequate intake of water daily.Needs influenza immunization: You have had your flu vaccine done today. There may be soreness at the injection site. Please report any adverse reactions.Hematochezia: Please call GI specialist to schedule an appointment. Phone number [phone] consulting for explanation of examination or test findings: We have reviewed your lab results with you today. Plan developed in collaboration with patient and/or familyMedications:CIPRO 250 MG ORAL TABLETALBUTEROL SULFATE HFA 108 (90 BASE) MCG/ACT INHALATION AEROSOL SO LUTIONASPIRIN EC 81 MG ORAL TABLET DELAYED RELEASEFERROUS SULFATE 325 (65 FE) MG ORAL TABLETBIKTARVY 50-200-25 MG ORAL TABLETMedication Changes:New Prescription:CIPRO 250 MG ORAL TABLET-take one tablet by mouth twice daily x 7 days Qty: 14[Tablet] Refills: 0 Method: ElectronicAllergies:* PENICILIAN (Critical)* BEE STINGS (Critical)Orders:Administration of Influenza Virus Vaccine [CPT-G0008] FluLaval Quadrivalent, preservative free [CPT-14053] 83853 - Immo Admin (over 19 yrs), 1st Vaccine [CPT-91409] COMP METABOLIC PANEL [CPT- 54919] CBC W/DIFF [CPT-87065] LIPID PANEL [CPT-77105] VITAMIN B-12 [CPT-10146] IRON [CPT-10625] FERRITIN [CPT-81880] Folate (Folic Acid Serum) [CPT-77573] Adult - Ofc Vst, EST, Level IV [CPT-38848] Follow-Up Return to clinic: 3 months for follow up Clinical Visit Summary CompletedMedications:CIPRO 250 MG ORAL TABLET (CIPROFLOXACIN HCL) take one tablet by mouth twice daily x 7 days #14[Tablet] x 0 Route:ORAL Entered and Authorized by: Alaina WHEELER Method used: Electronically to [facility] (retail) [address] [place] [address] Note to Pharmacy: Route: ORAL; Indications: URINARY TRACT INFECTION, SITE NOT SPECIFIED RxID: [id number] Questionnaire1) Does the patient have a long-term health problem with heart disease, lung disease, asthma, kidney disease, metabolic disease (e.g., diabetes), anemia, or other blood disorder? No2) Does the patient have allergies to medications, food, a vaccine component, or latex? No3) Does the patient have cancer, leukemia, AIDS, or any other immune system problem? Yes4) Does the patient live with or expect to have close contact with a person whose immune system is severely compromised and who must be in protective isolation (e.g., an isolation room of a bone marrow transplant unit)? No5) Does the patient take cortisone, prednisone, other steroids, or anticancer drugs, or has the patient had radiation treatments? No6) During the past year, has the patient received a transfusion of blood or blood products, or been given immune (gamma) globulin or an antiviral drug? No7) For women: Is the patient or is there a chance she could become during the next month? No8) Has the patient ever had a serious reaction to a vaccine in the past? No9) Has the patient had a seizure or a brain or other nervous system problem? No10) Has the patient received any vaccinations in the past 4 weeks? No11) Is the patient older than age 49 years? Yes12) Is the patient sick today? No13) Vaccine information given and explained to patient? YesVaccines Administered/Entered:Vaccination Group: InfluenzaSeries: 1Vaccination: Flulaval Quadrivalent Intramuscular Suspension Prefilled Syringe 0.5 MLMfr / Lot# / Exp.Date: [facility]410 Labs / [id number] 1Amt. Given / Route / Site: 0.5 mL / IM / Left DeltoidNDC / CVX: [id number] / 150Administered Date: 08/13/2020 15:19VFC Eligibility: Not VFC EligibleVIS Date: 06/21/2019VIS Given / VIS Given On: / 08/13/2020Comments: Administered by: Amy Field LPN Name Value Range Interpretation Code Description Data Daisy rce(s) Supporting Document(s) Procedure Social History Code Duration Value Status Description Data Source(s ) Smoking 09/10/2021 12:00:00 AM EDT Current Smoker completed Curre nt Smoker eCW1 ([facility]) Smoking 09/10/2021 12:00:00 AM EDT Current Smoker completed Curre nt Smoker eCW1 ([facility]) Smoking 07/23/2021 12:00:00 AM EDT Current Smoker completed Curre nt Smoker eCW1 ([facility]) Smoking 07/23/2021 12:00:00 AM EDT Current Smoker completed Curre nt Smoker eCW1 ([facility]) Smoking 07/23/2021 12:00:00 AM EDT Current Smoker completed Curre nt Smoker eCW1 ([facility]) Smoking 07/23/2021 12:00:00 AM EDT Current Smoker completed Curre nt Smoker eCW1 ([facility]) Smoking 06/04/2021 12:00:00 AM EDT Current Smoker completed Curre nt Smoker eCW1 ([facility]) Smoking 06/04/2021 12:00:00 AM EDT Current Smoker completed Curre nt Smoker eCW1 ([facility]) Smoking 06/04/2021 12:00:00 AM EDT Current Smoker completed Curre nt Smoker eCW1 ([facility]) Smoking 03/12/2021 12:00:00 AM EDT Current Smoker completed Curre nt Smoker eCW1 ([facility]) Smoking 03/12/2021 12:00:00 AM EDT Current Smoker completed Curre nt Smoker eCW1 ([facility]) Smoking 03/12/2021 12:00:00 AM EDT Current Smoker completed Curre nt Smoker eCW1 ([facility]) Smoking 03/12/2021 12:00:00 AM EDT Current Smoker completed Curre nt Smoker eCW1 ([facility]) Smoking 03/12/2021 12:00:00 AM EDT Current Smoker completed Curre nt Smoker eCW1 ([facility]) Smoking 09/09/2020 12:00:00 AM EST Current Smoker completed Curre nt Smoker eCW1 ([facility]) Smoking 09/09/2020 12:00:00 AM EST Current Smoker completed Curre nt Smoker eCW1 ([facility]) Vital Signs ID Date Data Source UNK Name Value Range Interpretation Code Description Data Source(s) Body weight 102 [lb_av] 102 [lb_av] eCW1 ([facility]) Body weight 46.27 kg 46.27 kg [facility] Body height 61 [in_i] 61 [in_i] eCW1 [facility] Body mass index (BMI) [Ratio] 19.27 kg/m2 19.27 kg/m2 W1 ([facility]) Heart rate 88 /min 88 /min eCW1 ([facility]) Respiratory rate 22 /min 22 /min eCW1 ([facility]) Body temperature 98.1 [degF] 98.1 [degF] eCW1 ( [facility]) Body weight 98 [lb_av] 98 [lb_av] eCW1 [facility] Body weight 44.45 kg 44.45 kg eCW1 [facility] Body height 61 [in_i] 61 [in_i] eCW1 [facility] Body mass index (BMI) [Ratio] 18.51 kg/m2 18.51 kg/m2 eCW1 ([facility]) Heart rate 114 /min 114 /min eCW1 ([facility]) Respiratory rate 18 /min 18 /min eCW1 ([facility]) Body temperature 97.6 [degF] 97.6 [degF] eCW1 ( [facility]) Systolic blood pressure 132 mm[Hg] 132 mm[Hg] e CW1 ([facility]) Diastolic blood pressure 78 mm[Hg] 78 mm[Hg] eCW1 ([facility]) Body height 62 [in_i] 62 [in_i] EVA ([facility]) Body weight 108 [lb_av] 108 [lb_av] eCW1 ([facility]) Body mass index (BMI) [Ratio] 20.40 kg/m2 20.40 kg/m2 eCW1 ([facility]) Body height 61 [in_i] 61 [in_i] eCW1 [facility] Heart rate 74 /min 74 /min eCW1 ([facility]) Respiratory rate 18 /min 18 /min eCW1 ([facility]) Body temperature 98.7 [degF] 98.7 [degF] eCW1 ( [facility]) Body weight 108 [lb_av] 108 [lb_av] eCW1 ([facility]) Body height 61 [in_i] 61 [in_i] eCW[facility] Body mass index (BMI) [Ratio] 20.40 kg/m2 20.40 kg/m2 eCW1 ([facility]) Heart rate 68 /min 68 /min eCW1 ([facility]) Respiratory rate 20 /min 20 /min eCW1 ([facility]) Body temperature 98.3 [degF] 98.3 [degF] eCW1 ( [facility]) Body height 62 [in_i] 62 [in_i] EVA ([facility]) Body height 62 [in_i] 62 [in_i] EVA ([facility]) Body height 62 [in_i] 62 [in_i] EVA ([facility]) Body mass index (BMI) [Ratio] 20.7 kg/m2 20.7 k g/m2 EVA ([facility]) Body weight 1814 [oz_av] 1814 [oz_av] EVA ([facility]) Systolic blood pressure 131 mm[Hg] 131 mm[Hg] A THENA ([facility]) Diastolic blood pressure 87 mm[Hg] 87 mm[Hg] EVA ([facility]) Body mass index (BMI) [Ratio] 20.7 kg/m2 20.7 k g/m2 EVA ([facility]) Diastolic blood pressure 87 mm[Hg] 87 mm[Hg] EVA ([facility]) Body height 62 [in_i] 62 [in_i] EVA ([facility]) Systolic blood pressure 131 mm[Hg] 131 mm[Hg] A THENA ([facility]) Body weight 1814 [oz_av] 1814 [oz_av] EVA ([facility]) Body mass index (BMI) [Ratio] 20.7 kg/m2 20.7 k g/m2 EVA ([facility]) Diastolic blood pressure 87 mm[Hg] 87 mm[Hg] EVA ([facility]) Body weight 1814 [oz_av] 1814 [oz_av] EVA ([facility]) Body height 62 [in_i] 62 [in_i] EVA ([facility]) Systolic blood pressure 131 mm[Hg] 131 mm[Hg] A THENA ([facility]) Diastolic blood pressure 87 mm[Hg] 87 mm[Hg] EVA ([facility]) Body height 62 [in_i] 62 [in_i] EVA ([facility]) Body mass index (BMI) [Ratio] 20.7 kg/m2 20.7 k g/m2 EVA ([facility]) Systolic blood pressure 131 mm[Hg] 131 mm[Hg] A THENA ([facility]) Body weight 1814 [oz_av] 1814 [oz_av] EVA ([facility]) Body weight 117 [lb_av] 117 [lb_av] eCW1 ([facility]) Body height 61 [in_i] 61 [in_i] eCW[facility] Body mass index (BMI) [Ratio] 22.10 kg/m2 22.10 kg/m2 W1 ([facility]) Heart rate 115 /min 115 /min eCW1 ([facility]) Respiratory rate 18 /min 18 /min eCW1 ([facility]) Body temperature 98.6 [degF] 98.6 [degF] eCW1 ( [facility]) Systolic blood pressure 128 mm[Hg] 128 mm[Hg] e CW1 ([facility]) Diastolic blood pressure 74 mm[Hg] 74 mm[Hg] eCW1 ([facility]) Body weight 1664 [oz_av] 1664 [oz_av] EVA ([facility]) Systolic blood pressure 117 mm[Hg] 117 mm[Hg] A THENA ([facility]) Body height 62 [in_i] 62 [in_i] EVA ([facility]) Body mass index (BMI) [Ratio] 19.09 kg/m2 19.09 kg/m2 EVA ([facility]) Diastolic blood pressure 80 mm[Hg] 80 mm[Hg] EVA ([facility]) Diastolic blood pressure 80 mm[Hg] 80 mm[Hg] EVA ([facility]) Body height 62 [in_i] 62 [in_i] EVA ([facility]) Body mass index (BMI) [Ratio] 19.09 kg/m2 19.09 kg/m2 EVA ([facility]) Systolic blood pressure 117 mm[Hg] 117 mm[Hg] [facility] Body weight 1664 [oz_av] 1664 [oz_av] EVA ([facility]) Diastolic blood pressure 80 mm[Hg] 80 mm[Hg] EVA ([facility]) Body height 62 [in_i] 62 [in_i] EVA ([facility]) Body mass index (BMI) [Ratio] 19.09 kg/m2 19.09 kg/m2 EVA ([facility]) Systolic blood pressure 117 mm[Hg] 117 mm[Hg] A THENA ([facility]) Body weight 1664 [oz_av] 1664 [oz_av] EVA ([facility]) Diastolic blood pressure 80 mm[Hg] 80 mm[Hg] EVA ([facility]) Body height 62 [in_i] 62 [in_i] EVA ([facility]) Body mass index (BMI) [Ratio] 19.09 kg/m2 19.09 kg/m2 EVA ([facility]) Systolic blood pressure 117 mm[Hg] 117 mm[Hg] A THENA ([facility]) Body weight 1664 [oz_av] 1664 [oz_av] EVA ([facility]) ID Date Data Source [id number] 01/30/2021 11:24:44 PM EDT [facility] Name Value Range Interpretation Code Description Data Source(s) TRANSFER FROM [facility] ID Date Data Source [id number] 11/12/2020 09:40:04 AM EST [facility] Name Value Range Interpretation Code Description Data Source(s) TRANSFER FROM [facility] Patient Treatment Plan of Care Planned Activity Planned Date Details Description Data Source (s) Spironolactone 25 MG Oral Tablet [Aldactone] 09/10/2021 12:00:00 AM EDT eCW1 ([facility]) Acetaminophen 500 MG Oral Tablet 09/10/2021 12:00:00 AM EDT eCW1 ([facility]) Spironolactone 25 MG Oral Tablet [Aldactone] 09/10/2021 12:00:00 AM EDT eCW1 ([facility]) Acetaminophen 500 MG Oral Tablet 09/10/2021 12:00:00 AM EDT eCW1 ([facility]) 30 ACTUAT fluticasone furoate 0.2 MG/ACT UAT / vilanterol 0.025 MG/ACTUAT Dry Powder Inhaler [Breo] 08/10/2021 12:00:00 AM EDT eCW1 ([facility]) 30 ACTUAT fluticasone furoate 0.2 MG/ACT UAT / vilanterol 0.025 MG/ACTUAT Dry Powder Inhaler [Breo] 08/10/2021 12:00:00 AM EDT eCW1 ([facility]) cefdinir 300 MG Oral Capsule 07/26/2021 12:00:00 AM EDT eCW1 ([facility]) cefdinir 300 MG Oral Capsule 07/26/2021 12:00:00 AM EDT eCW1 ([facility]) cefdinir 300 MG Oral Capsule 07/26/2021 12:00:00 AM EDT eCW1 ([facility]) cefdinir 300 MG Oral Capsule 07/26/2021 12:00:00 AM EDT eCW1 ([facility]) Daily-Shivam Multivitamin - 04/30/2021 12:00:00 AM EDT eCW1 ([facility]) Daily-Shivam Multivitamin - 04/30/2021 12:00:00 AM EDT eCW1 ([facility]) Daily-Shivam Multivitamin - 04/30/2021 12:00:00 AM EDT eCW1 ([facility]) Sucralfate 1000 MG Oral Tablet EVA ([facility]) olodaterol 0.0025 MG/ACTUAT / tiotropium 0.0025 MG/ACT UAT Metered Dose Inhaler EVA ([facility]) Potassium Chloride 10 MEQ Extended Release Oral Tablet EVA ([facility]) ferrous sulfate 325 MG Oral Tablet EVA ([facility]) Ciprofloxacin 250 MG Oral Tablet EVA ([facility]) Aspirin 81 MG Delayed Release Oral Tablet EVA ([facility]) Ciprofloxacin 250 MG Oral Tablet EVA ([facility]) Ciprofloxacin 250 MG Oral Tablet EVA ([facility]) Ciprofloxacin 250 MG Oral Tablet EVA ([facility])
[2021-10-03 15:44] VITALS: BP 118/62
== END 2021-10-03 17:00 | disposition left against medical advice (07) ==
LOC: M ED 14:00 → EDBD 14:00 → M ED 17:00
DX: R29.6 Repeated falls (principal); F10.10 Alcohol abuse, uncomplicated; Z53.20 Procedure and treatment not carried out because of patient's decision for unspecified reasons; B20 Human immunodeficiency virus [HIV] disease; J44.9 Chronic obstructive pulmonary disease, unspecified; F31.9 Bipolar disorder, unspecified; F17.200 Nicotine dependence, unspecified, uncomplicated; Z88.0 Allergy status to penicillin; Z88.1 Allergy status to other antibiotic agents; Z79.899 Other long term (current) drug therapy

== ENCOUNTER 2021-10-05 09:52 | Emergency (ER) | payer OTHER ==
[2021-10-05 14:15] VITALS: BP 106/63
[2021-10-05] MEDS ORDERED: ACETAMINOPHEN TAB 650MG DOSE (2X325MG) PO ONE (15:10)
[2021-10-05] MEDS ORDERED: ACET-683 PO (16:11)
== END 2021-10-05 18:53 | disposition home or self-care (01) ==
LOC: M ED 09:52
DX: G89.4 Chronic pain syndrome (principal); M54.50 Low back pain, unspecified; B88.9 Infestation, unspecified; B20 Human immunodeficiency virus [HIV] disease; F10.10 Alcohol abuse, uncomplicated; K21.9 Gastro-esophageal reflux disease without esophagitis; F17.200 Nicotine dependence, unspecified, uncomplicated; Z88.0 Allergy status to penicillin; Z79.899 Other long term (current) drug therapy

== ENCOUNTER 2021-10-13 09:57 | Emergency (ER) | payer OTHER ==
[~2021-10-13] VITALS: Ht 157.5 cm; Wt 45.4 kg
[~2021-10-13 09:57] MED LIST changes: +ACET-683 PO
[2021-10-13] MEDS ORDERED: predniSONE 20 MG TAB PO ONE (10:20)
[2021-10-13] MEDS: COMBIVENT RESPIMAT 100-20MCG INHALER 4GM INH SCH ×2 (10:43→10:44)
--- OUTSIDE RECORDS SUMMARY | 2021-10-13 11:23 | CCD ---
Author Author [facility] Organization [facility] Address Unknown Phone Unavailable Care Team Providers Care Script Developer Name Role Phone Hospital Lab, [facility] Unavailable Unavailable Mj, Alaina APPLICATIONS DEVELOPMENT ANALYST APPLICATIONS DEVELOPMENT ANALYST Unavailable Unavailable Mj, A Alaina APPLICATIONS DEVELOPMENT ANALYST Unavailable Unavailable Mj, A Alaina APPLICATIONS DEVELOPMENT ANALYST Unavailable Unavailable Mj, A Alaina APPLICATIONS DEVELOPMENT ANALYST Unavailable Unavailable Mj, A Alaina APPLICATIONS DEVELOPMENT ANALYST Unavailable Unavailable Mj, A Alaina APPLICATIONS DEVELOPMENT ANALYST Unavailable Unavailable Mj, A Alaina APPLICATIONS DEVELOPMENT ANALYST Unavailable Unavailable Mj, A Alaina APPLICATIONS DEVELOPMENT ANALYST Unavailable Unavailable Mj, A Alaina APPLICATIONS DEVELOPMENT ANALYST Unavailable Unavailable Mj, A Alaina APPLICATIONS DEVELOPMENT ANALYST Unavailable Unavailable Mj, A Alaina APPLICATIONS DEVELOPMENT ANALYST Unavailable Unavailable Mj, A Alaina APPLICATIONS DEVELOPMENT ANALYST Unavailable Unavailable Mj, A Alaina APPLICATIONS DEVELOPMENT ANALYST Unavailable Unavailable Mj, A Alaina APPLICATIONS DEVELOPMENT ANALYST Unavailable Unavailable Mj, A Alaina APPLICATIONS DEVELOPMENT ANALYST Unavailable Unavailable Mj, A Alaina APPLICATIONS DEVELOPMENT ANALYST Unavailable Unavailable Mj, A Alaina APPLICATIONS DEVELOPMENT ANALYST Unavailable Unavailable Mj, A Alaina APPLICATIONS DEVELOPMENT ANALYST Unavailable Unavailable Mj, A Alaina APPLICATIONS DEVELOPMENT ANALYST Unavailable Unavailable Acra, A Alaina APPLICATIONS DEVELOPMENT ANALYST Unavailable Unavailable Mj, A Alaina APPLICATIONS DEVELOPMENT ANALYST Unavailable Unavailable Mj, A Alaina APPLICATIONS DEVELOPMENT ANALYST Unavailable Unavailable Mj, A Alaina APPLICATIONS DEVELOPMENT ANALYST Unavailable Unavailable Mj, A Alaina APPLICATIONS DEVELOPMENT ANALYST Unavailable Unavailable Mj, A Alaina APPLICATIONS DEVELOPMENT ANALYST Unavailable Unavailable Mj, A Alaina APPLICATIONS DEVELOPMENT ANALYST Unavailable Unavailable Mj, A Alaina APPLICATIONS DEVELOPMENT ANALYST Unavailable Unavailable Mj, A Alaina APPLICATIONS DEVELOPMENT ANALYST Unavailable Unavailable Mj, A Alaina APPLICATIONS DEVELOPMENT ANALYST Unavailable Unavailable Mj, A Alaina APPLICATIONS DEVELOPMENT ANALYST Unavailable Unavailable Mj, A Alaina APPLICATIONS DEVELOPMENT ANALYST Unavailable Unavailable Mj, A Alaina APPLICATIONS DEVELOPMENT ANALYST Unavailable Unavailable Angle, J Channing PA-C Unavailable [...] Shoemaker MD Unavailable Unavailable Mj, A Alaina APPLICATIONS DEVELOPMENT ANALYST Unavailable Unavailable Acra, A Alaina APPLICATIONS DEVELOPMENT ANALYST Unavailable Unavailable Acra, A Alaina APPLICATIONS DEVELOPMENT ANALYST Unavailable Unavailable Acra, A Alaina APPLICATIONS DEVELOPMENT ANALYST Unavailable Unavailable Acra, A Alaina APPLICATIONS DEVELOPMENT ANALYST Unavailable Unavailable Acra, A Alaina APPLICATIONS DEVELOPMENT ANALYST Unavailable Unavailable Acra, A Alaina APPLICATIONS DEVELOPMENT ANALYST Unavailable Unavailable Acra, A Alaina APPLICATIONS DEVELOPMENT ANALYST Unavailable Unavailable Acra, A Alaina APPLICATIONS DEVELOPMENT ANALYST Unavailable Unavailable Acra, A Alaina APPLICATIONS DEVELOPMENT ANALYST Unavailable Unavailable Acra, A Alaina APPLICATIONS DEVELOPMENT ANALYST Unavailable Unavailable Acra, A Alaina APPLICATIONS DEVELOPMENT ANALYST Unavailable Unavailable Acra, A Alaina APPLICATIONS DEVELOPMENT ANALYST Unavailable Unavailable Acra, A Alaina APPLICATIONS DEVELOPMENT ANALYST Unavailable Unavailable Acra, A Alaina APPLICATIONS DEVELOPMENT ANALYST Unavailable Unavailable Acra, A Alaina APPLICATIONS DEVELOPMENT ANALYST Unavailable Unavailable Acra, A Alaina APPLICATIONS DEVELOPMENT ANALYST Unavailable Unavailable Acra, A Alaina APPLICATIONS DEVELOPMENT ANALYST Unavailable Unavailable Mj, A Alaina APPLICATIONS DEVELOPMENT ANALYST Unavailable Unavailable Mj, A Alaina APPLICATIONS DEVELOPMENT ANALYST Unavailable Unavailable Mj, A Alaina APPLICATIONS DEVELOPMENT ANALYST Unavailable Unavailable Mj, A Alaina APPLICATIONS DEVELOPMENT ANALYST Unavailable Unavailable Mj, A Alaina APPLICATIONS DEVELOPMENT ANALYST Unavailable Unavailable Mj, A Alaina APPLICATIONS DEVELOPMENT ANALYST Unavailable Unavailable Mj, A Alaina APPLICATIONS DEVELOPMENT ANALYST Unavailable Unavailable Mj, A Alaina APPLICATIONS DEVELOPMENT ANALYST Unavailable Unavailable Mj, A Alaina APPLICATIONS DEVELOPMENT ANALYST Unavailable Unavailable Mj, A Alaina APPLICATIONS DEVELOPMENT ANALYST Unavailable Unavailable Mj, A Alaina APPLICATIONS DEVELOPMENT ANALYST Unavailable Unavailable Mj, A Alaina APPLICATIONS DEVELOPMENT ANALYST Unavailable Unavailable Mj, A Alaina APPLICATIONS DEVELOPMENT ANALYST Unavailable Unavailable ABEL, Anny ROCIO MD Unavailable [...] is protected by Article 27-F of the [facility] Public Health law. If you continue you may have access to information: Regarding HIV / AIDS; Provided by facilities licensed or operated by the [facility] Office of Mental Health; or Provided by the [facility] Office for People With Developmental Disabilities. If such information is present, then the following [facility] mandated warning applies: This information has been [...] law may result in a fine or custodial sentence or both. A general authorization for the release of medical or other information is NOT sufficient authorization for further disc losure. Allergies and Adverse Reactions Type Description Substance Reaction Status Data Source(s ) Propensity to adverse reactions BEE STING BEE STING [facility] Propensity to adverse reactions BACTRIM BACTRIM [facility] Drug allergy ABACAVIR ABACAVIR [facility] Propensity to adverse reactions SULFA (sulfonamide) SULFA (sulfonam elodia) [facility] Propensity to adverse reactions PCN (penicillin) PCN (penicillin) [facility] Hospital Encounters Encounter Providers Location Date Indications Data Source(s ) [place] [address] [facility] [address] [place] [address] 09/10/2021 12:00:00 AM EDT eCW1 ([facility]) Unknown [address] [facility] [place] [address] 09/10/2021 12:00:00 AM EDT [facility] [place] [address] [facility] [facility] [address] 08/07/2021 12:00:00 AM EDT [facility]CW1 [facility] [place] [address] [facility] [address] 08/07/2021 12:00:00 AM EDT eCW1 ([facility]) Unknown [address] [facility] [place] [address] 07/26/2021 12:00:00 AM EDT eCW1 ([facility]) Outpatient [address] [place] [address] Y [address] 07/23/2021 12:00:00 AM EDT eCW1 ([facility]) Unknown [address] [facility] [place] [address] 07/03/2021 12:00:00 AM EDT [facility]CW[facility] [place]) [facility] Lia-BC: [address] [place] [phone], Ph. Attender: Alaina WHEELER PA - [facility] Medical 06/18/2021 12:00:00 AM EDT EVA ([facility]) Unknown [address] [facility] [place] [address] 06/08/2021 12:00:00 AM EDT eCW1 ([facility]) Outpatient [address] [place] [address] Y [address] 06/04/2021 12:00:00 AM EDT eCW1 ([facility]) Unknown [address] [facility] [place] [address] 05/22/2021 12:00:00 AM EDT eCW1 (Critical access hospital) [place] [address] [facility] [place] [address] 05/13/2021 12:00:00 AM EDT eCW1 (Critical access hospital) [place] [address] [facility] [place] [address] 04/27/2021 12:00:00 AM EDT eCW1 (Critical access hospital) [place] [address] [facility] [place] [address] 04/20/2021 12:00:00 AM EDT eCW1 (Critical access hospital) [place]patient [address] [facility] [place] [address] 03/12/2021 12:00:00 AM EDT eCW1 (Critical access hospital) Alaina Barker [facility]: [address] [place] [address], Ph. Attender: Alaina Barker [facility] Medical 02/11/2021 12:00:00 AM EDT EVA ([facility]) Alaina Barker [facility]: [address] [place] [address], Ph. Attender: Alaina Barker [facility] Medical 02/11/2021 12:00:00 AM EDT EVA ([facility]) Inpatient Attender: DANA Alves MDAttender: Dexter Shoemaker MDConsultant: STAFF NON 01/30/2021 10:11:00 PM EDT - 01/31/2021 10:35:00 AM EDT [facility] Patient discharged. Outpatient Referrer: Channing Barbour PA-C [id number] 01/30/2021 0 8:46:00 PM [facility], [facility] Attender: [facility] 01/30/2021 08:1 3:00 PM EDT [facility] Emergency Attender: DANA CANNON MD 01/30/2021 01:50:00 PM EDT - 01/30/2021 10:11:00 PM EDT [facility] Emergency Attender: ROCIO BYNUM MDConsultant: STAFF NON 01/04/2021 01:36:00 PM EST - 01/04/2021 06:36:00 PM EST [facility] Patient discharged. GELA Lai: [address], [place] [address], Ph. Attender: Alaina Barker [facility] Medical 01/01/2021 12:00:00 AM EST EVA ([facility]) POONAM Lai: [address], [place] [address], Ph. Attender: Alaina Barker [facility] Medical 01/01/2021 12:00:00 AM EST EVA ([facility]) GELA Lai: [address], [place] [address], Ph. Attender: Alaina Barker [facility] Medical 01/01/2021 12:00:00 AM EST EVA ([facility]) GELA Lai: [address], [place] [address], Ph. Attender: Alaina Barker [facility] Medical 01/01/2021 12:00:00 AM EST EVA ([facility]) Outpatient [id number] 11/11/2020 07:23:00 PM EST anemia, bloody stools [facility] anemia, bloody stools Emergency Attender: Channing ENCISOCConsultant: STAFF NO N 11/11/2020 01:26:00 PM EST - 11/12/2020 12:57:00 AM EST [facility] Patient discharged. POONAM Lai: [address], [place] [address], Ph. Attender: Alaina Barker [facility] Medical 11/06/2020 12:00:00 AM EST EVA ([facility]) [facility] [address], [place] [address], Ph. Attender: Alaina Barker [facility] Medical 11/06/2020 12:00:00 AM EST EVA ([facility]) Alaina Barker [facility]: [address], [place] [address], Ph. Attender: Alaina Barker [facility] Medical 11/06/2020 12:00:00 AM EST EVA ([facility]) Alaina Barker [facility]: [address] [place] [address], Ph. Attender: Alaina Barker [facility] Medical 11/06/2020 12:00:00 AM EST [facility] ([facility]) [place] [address] [facility] [facility] [place] [address] 09/09/2020 12:00:00 AM EST eCW1 (Critical access hospital) [place] [address] [place] [address] 09/08/2020 12:00:00 AM EST eCW1 (Critical access hospital) Outpatient Attender: Alaina WHEELER 08/19/2020 06:5 1:00 PM EDT [facility] Outpatient Attender: [facility] WHEELER 08/13/2020 02:32:02 P M EDT [facility] Outpatient Attender: [facility] WHEELER 08/13/2020 01:20:00 P M EDT [facility] Out[facility] 08/13/2020 11:2 5:00 AM EDT [facility] Immunizations Vaccine Date Status Description Data Source(s) influenza, recombinant, quadrIvalent,injectable, prese rvative free 09/10/2021 12:38:00 PM EDT completed eCW1 ([facility]) influenza, recombinant, quadrIvalent,injectable, prese rvative free 09/10/2021 12:38:00 PM EDT completed eCW1 ([facility]) Medications Medication Brand Name Start Date Product Form Dose Route Admi nistrative Instructions Pharmacy Instructions Status Indications Reaction Description Data Source(s) 500 mg 10/05/2021 12:00:00 AM EST tablet 60 TAKE ONE TABLET BY MOUTH EVERY 6 HOURS NEEDED FOR BACK PAIN TAKE ONE TABLET BY MOUTH EVERY 6 HOURS A S NEEDED FOR BACK PAIN SOLD: 10/05/2021 [facility] MULTIVITAMIN 09/26/2021 12:00:00 AM EST tablet 30 TAKE ONE TABLET BY MOUTH EVERY DAY TAKE ONE TABLET BY MOUTH EVERY DAY SOLD: 09/27/2021 [facility] 324 mg (38 mg iron) 09/14/2021 12:00:00 AM EST tablet 30 TAKE ONE TABLET BY MOUTH EVERY DAY WITH WATER OR JUICE BETWEEN MEALS TAKE ONE TABLET BY MOUTH EVERY DAY WITH WATER OR JUICE BETWEEN MEALS SOLD: 09/14/2021 [facility] Acetaminophen 500 MG Oral Tablet Acetaminophen 500 MG 2020 12:00:00 AM EDT 1.0 {capsule_as_needed} active Acetaminophen 500 MG eCW1 ([facility]) Acetaminophen 500 MG Oral Tablet Acetaminophen 500 MG 2020 12:00:00 AM EDT 1.0 {capsule_as_needed} active eCW1 ([facility]) Spironolactone 25 MG Oral Tablet [Aldactone] Aldactone 25 MG Aldactone 25 MG 09/10/2021 12:00:00 AM EDT 1.0 {tablet} active Aldactone 25 MG eCW1 ([facility]) 90 mcg/actuation 09/10/2021 12:00:00 AM EDT HFA aerosol inha ler 18 INHALE TWO PUFFS BY MOUTH EVERY 4 HOURS NEEDED INHALE TWO PUFFS BY MOUTH EVERY 4 HOURS NEEDED SOLD: 09/10/2021 [facility] Spironolactone 25 MG Oral Tablet [Aldactone] Aldactone 25 MG Aldactone 25 MG 09/10/2021 12:00:00 AM EDT 1.0 {tablet} active eCW1 ([facility]) pantoprazole 40 MG Delayed Release Oral Tablet PANTOPRAZOLE SODIUM 09/10/2021 12:00:00 AM EDT tablet,delayed release (DR/EC) 30 T KAR ONE TABLET BY MOUTH EVERY DAY TAKE ONE TABLET BY MOUTH EVERY DAY SOLD: 09/10/2021 [facility] 25 mg 09/10/2021 12:00:00 AM EDT tablet 30 TAKE ONE TABLET BY MOUTH EVERY DAY TAKE ONE TABLET BY MOUTH EVERY DAY SOLD: 09/10/2021 [facility] 400 mcg 08/30/2021 12:00:00 AM EDT tablet 30 TAKE ONE TABLET BY MOUTH EVERY DAY TAKE ONE TABLET BY MOUTH EVERY DAY SOLD: 08/30/2021 [facility] 90 mcg/actuation 08/12/2021 12:00:00 AM EDT [...] {puff} active Breo Ellipta 200-25 MCG/INH eCW1 ([facility]) 30 ACTUAT fluticasone furoate 0.2 MG/ACT UAT / vilanterol 0.025 MG/ACTUAT Dry Powder Inhaler [Breo] Breo Ellipta 200-25 MCG/INH Breo Ellipta 200-25 MCG/INH 08/10/2021 12:00:00 AM EDT 1.0 {puff} active Breo Ellipta 200-25 MCG/INH eCW1 ([facility]) 30 ACTUAT fluticasone furoate 0.2 MG/ACT UAT / vilanterol 0.025 MG/ACTUAT Dry Powder Inhaler [Breo] Breo Ellipta 200-25 MCG/INH Breo Ellipta 200-25 MCG/INH 08/10/2021 12:00:00 AM EDT 1.0 {puff} active eCW1 ([facility]) 30 ACTUAT fluticasone furoate 0.2 MG/ACT UAT / vilanterol 0.025 MG/ACTUAT Dry Powder Inhaler [Breo] Breo Ellipta 200-25 MCG/INH Breo Ellipta 200-25 MCG/INH 08/10/2021 12:00:00 AM EDT 1.0 {puff} active Breo Ellipta 200-25 MCG/INH eCW1 ([facility]) cefdinir 300 MG Oral Capsule Cefdinir 300 MG Cefdinir 300 MG 07/26/2021 12:00:00 AM EDT active Cefdinir 300 MG eCW1 ([facility]) cefdinir 300 MG Oral Capsule Cefdinir 300 MG Cefdinir 300 MG 07/26/2021 12:00:00 AM EDT active Cefdinir 300 MG eCW1 ([facility]) cefdinir 300 MG Oral Capsule Cefdinir 300 MG Cefdinir 300 MG 07/26/2021 12:00:00 AM EDT active Cefdinir 300 MG eCW1 ([facility]) 300 mg 07/26/2021 12:00:00 AM EDT capsule 14 TAKE ONE CAPSULE BY MOUTH TWICE A DAY FOR 7 DAYS TAKE ONE CAPSULE BY MOUTH TWICE A DAY FOR 7 DAYS SOLD: 07/26/2021 [facility] cefdinir 300 MG Oral Capsule Cefdinir 300 MG Cefdinir 300 MG 07/26/2021 12:00:00 AM EDT active Cefdinir 300 MG eCW1 ([facility]) pantoprazole 40 MG Delayed Release Oral Tablet PANTOPRAZOLE SODIUM 07/15/2021 12:00:00 AM EDT tablet,delayed release (DR/EC) 30 T KAR ONE TABLET BY MOUTH EVERY DAY TAKE ONE TABLET BY MOUTH EVERY DAY SOLD: 07/15/2021 [facility] 400 mcg 06/05/2021 12:00:00 AM EDT tablet 30 TAKE ONE TABLET BY MOUTH EVERY DAY TAKE ONE TABLET BY MOUTH EVERY DAY SOLD: 07/17/2021 [facility] 400 mcg 06/05/2021 12:00:00 AM EDT tablet 30 TAKE ONE TABLET BY MOUTH EVERY DAY TAKE ONE TABLET BY MOUTH EVERY DAY SOLD: 06/05/2021 [facility] 90 mcg/actuation 05/05/2021 12:00:00 AM EDT HFA [...] 4 HOURS NEEDED SOLD: 06/16/2021 [facility] 90 mcg/actuation 05/05/2021 12:00:00 AM EDT HFA aerosol inha ler 18 INHALE TWO PUFFS BY MOUTH EVERY 4 HOURS NEEDED INHALE TWO PUFFS BY MOUTH EVERY 4 HOURS NEEDED SOLD: 05/05/2021 [facility] 90 mcg/actuation 05/05/2021 [...] 4 HOURS NEEDED SOLD: 07/01/2021 [facility] Daily-Shivam Multivitamin - Daily-Shivam Multivitamin - 04/30/2021 1 2:00:00 AM EDT 1.0 {tablet} active Daily-Shivam Multivitamin - eCW1 ([facility]) Daily-Shivam Multivitamin - Daily-Shivam Multivitamin - 04/30/2021 1 2:00:00 AM EDT 1.0 {tablet} active Daily-Shivam Multivitamin - eCW1 ([facility]) Daily-Shivam Multivitamin - Daily-Shivam Multivitamin - 04/30/2021 1 2:00:00 AM EDT 1.0 {tablet} active Daily-Shivam Multivitamin - eCW1 ([facility]) Daily-Shivam Multivitamin - Daily-Shivam Multivitamin - 04/30/2021 1 2:00:00 AM EDT 1.0 {tablet} active Daily-Shivam Multivitamin - eCW1 ([facility]) Daily-Shivam Multivitamin - Daily-Shivam Multivitamin - 04/30/2021 1 2:00:00 AM EDT 1.0 {tablet} active Daily-Shivam Multivitamin - eCW1 ([facility]) Daily-Shivam Multivitamin - Daily-Shivam Multivitamin - 04/30/2021 1 2:00:00 AM EDT 1.0 {tablet} active Daily-Shivam Multivitamin - eCW1 ([facility]) Daily-Shivam Multivitamin - Daily-Shivam Multivitamin - 04/30/2021 1 2:00:00 AM EDT 1.0 {tablet} active Daily-Shivam Multivitamin - eCW1 ([facility]) Daily-Shivam Multivitamin - Daily-Shivam Multivitamin - 04/30/2021 1 2:00:00 AM EDT 1.0 {tablet} active Daily-Shivam Multivitamin - eCW1 ([facility]) Daily-Shivam Multivitamin - Daily-Shivam Multivitamin - 04/30/2021 1 2:00:00 AM EDT 1.0 {tablet} active Daily-Shivam Multivitamin - eCW1 ([facility]) Daily-Shivam Multivitamin - Daily-Shivam Multivitamin - 04/30/2021 1 2:00:00 AM EDT 1.0 {tablet} active eCW 1 ([facility]) 25 mg 04/25/2021 12:00:00 AM EDT tablet [...] BY MOUTH EVERY DAY DIRECTED SOLD: 07/19/2021 [facility] 25 mg 04/25/2021 12:00:00 AM EDT tablet extended release 24 hr 30 TAKE ONE TABLET BY MOUTH EVERY DAY DIRECTED TAKE ONE TABLET BY MOUTH EVERY DAY DIRECTED SOLD: 10/11/2021 [facility] 90 mcg/actuation 04/08/2021 12:00:00 AM EDT HFA aerosol inha ler 18 INHALE TWO PUFFS BY MOUTH EVERY 4 HOURS NEEDED INHALE TWO PUFFS BY MOUTH EVERY 4 HOURS NEEDED SOLD: 05/19/2021 [facility] 90 mcg/actuation 04/08/2021 12:00:00 AM EDT HFA aerosol inha ler 18 INHALE TWO PUFFS BY MOUTH EVERY 4 HOURS NEEDED INHALE TWO PUFFS BY MOUTH EVERY 4 HOURS NEEDED SOLD: 04/21/2021 [facility] 90 mcg/actuation 04/08/2021 12:00:00 AM EDT HFA aerosol inha ler 18 INHALE TWO PUFFS BY MOUTH EVERY 4 HOURS NEEDED INHALE TWO PUFFS BY MOUTH EVERY 4 HOURS NEEDED SOLD: 04/08/2021 [facility] 324 mg (38 mg iron) 04/05/2021 12:00:00 AM EDT tablet 30 TAKE ONE TABLET BY MOUTH EVERY DAY WITH WATER OR JUICE BETWEEN MEALS TAKE ONE TABLET BY MOUTH EVERY DAY WITH WATER OR JUICE BETWEEN MEALS SOLD: 08/20/2021 [facility] 324 mg (38 mg iron) 04/05/2021 12:00:00 AM EDT tablet 30 TAKE ONE TABLET BY MOUTH EVERY DAY WITH WATER OR JUICE BETWEEN MEALS TAKE ONE TABLET BY MOUTH EVERY DAY WITH WATER OR JUICE BETWEEN MEALS SOLD: 05/29/2021 [facility] 324 mg (38 mg iron) 04/05/2021 12:00:00 AM EDT tablet 30 TAKE ONE TABLET BY MOUTH EVERY DAY WITH WATER OR JUICE BETWEEN MEALS TAKE ONE TABLET BY MOUTH EVERY DAY WITH WATER OR JUICE BETWEEN MEALS SOLD: 05/01/2021 [facility] 324 mg (38 mg iron) 04/05/2021 12:00:00 AM EDT tablet 30 TAKE ONE TABLET BY MOUTH EVERY DAY WITH WATER OR JUICE BETWEEN MEALS TAKE ONE TABLET BY MOUTH EVERY DAY WITH WATER OR JUICE BETWEEN MEALS SOLD: 07/24/2021 [facility] 324 mg (38 mg iron) 04/05/2021 12:00:00 AM EDT tablet 30 TAKE ONE TABLET BY MOUTH EVERY DAY WITH WATER OR JUICE BETWEEN MEALS TAKE ONE TABLET BY MOUTH EVERY DAY WITH WATER OR JUICE BETWEEN MEALS SOLD: 06/26/2021 [facility] 324 mg (38 mg iron) 04/05/2021 12:00:00 AM EDT tablet 30 TAKE ONE TABLET BY MOUTH EVERY DAY WITH WATER OR JUICE BETWEEN MEALS TAKE ONE TABLET BY MOUTH EVERY DAY WITH WATER OR JUICE BETWEEN MEALS SOLD: 04/06/2021 [facility] bictegravir 50 MG / emtricitabine 200 MG / tenofovir alafenamide 25 MG Oral Tablet [Biktarvy] 50-200-25 mg BICTEGRAV/EMTRICIT/TENOFOV ALA 04/03/2021 12:00:00 AM EDT tablet 30 TAKE ONE TABLET BY MOUTH EVERY DAY TAKE ONE TABLET BY MOUTH EVERY DAY SOLD: 07/20/2021 [facility] bictegravir 50 MG / emtricitabine 200 [...] WATER OR JUICE BETWEEN MEALS SOLD: 03/11/2021 [facility] 2.5 % 03/09/2021 12:00:00 AM EDT [...] MOUTH EVERY DAY SOLD: 10/27/2020 [facility] pantoprazole 40 MG Delayed Release Oral Tablet PANTOPRAZOLE SODIUM 10/27/2020 12:00:00 AM EST tablet,delayed release (DR/EC) 30 T KAR ONE TABLET BY MOUTH EVERY DAY TAKE ONE TABLET BY MOUTH EVERY DAY SOLD: 12/18/2020 [facility] pantoprazole 40 MG Delayed Release Oral Tablet PANTOPRAZOLE SODIUM 10/27/2020 12:00:00 AM EST tablet,delayed release (DR/EC) 30 T KAR ONE TABLET BY MOUTH EVERY DAY TAKE ONE TABLET BY MOUTH EVERY DAY SOLD: 05/23/2021 [facility] pantoprazole 40 MG Delayed Release Oral Tablet PANTOPRAZOLE SODIUM 10/27/2020 12:00:00 AM EST tablet,delayed release (DR/EC) 30 T KAR ONE TABLET BY MOUTH EVERY DAY TAKE ONE TABLET BY MOUTH EVERY DAY SOLD: 04/01/2021 [facility] pantoprazole 40 MG Delayed Release Oral Tablet PANTOPRAZOLE SODIUM 10/27/2020 12:00:00 AM EST tablet,delayed release (DR/EC) 30 T KAR ONE TABLET BY MOUTH EVERY DAY TAKE ONE TABLET BY MOUTH EVERY DAY SOLD: 02/09/2021 [facility] 324 mg (38 mg iron) 10/22/2020 12:00:00 [...] TABLET BY MOUTH EVERY DAY SOLD: 06/18/2021 [facility] pantoprazole 40 MG Delayed Release Oral Tablet PANTOPRAZOLE SODIUM 10/01/2020 12:00:00 AM EST tablet,delayed release (DR/EC) 30 T KAR ONE TABLET BY MOUTH EVERY DAY TAKE ONE TABLET BY MOUTH EVERY DAY SOLD: 01/13/2021 [facility] pantoprazole 40 MG Delayed Release Oral Tablet PANTOPRAZOLE SODIUM 10/01/2020 12:00:00 AM EST tablet,delayed release (DR/EC) 30 T KAR ONE TABLET BY MOUTH EVERY DAY TAKE ONE TABLET BY MOUTH EVERY DAY SOLD: 04/27/2021 [facility] pantoprazole 40 MG Delayed Release Oral Tablet PANTOPRAZOLE SODIUM 10/01/2020 12:00:00 AM EST tablet,delayed release (DR/EC) 30 T KAR ONE TABLET BY MOUTH EVERY DAY TAKE ONE TABLET BY MOUTH EVERY DAY SOLD: 11/24/2020 [facility] pantoprazole 40 MG Delayed [...] 4 HOURS NEEDED SOLD: 10/27/2020 [facility] 90 mcg/actuation 08/29/2020 12:00:00 AM EDT HFA aerosol inha ler 18 INHALE TWO PUFFS BY MOUTH EVERY 4 HOURS NEEDED INHALE TWO PUFFS BY MOUTH EVERY 4 HOURS NEEDED SOLD: 09/14/2020 [facility] 90 mcg/actuation 08/29/2020 12:00:00 AM EDT HFA aerosol inha ler 18 INHALE TWO PUFFS BY MOUTH EVERY 4 HOURS NEEDED INHALE TWO PUFFS BY MOUTH EVERY 4 HOURS NEEDED SOLD: 10/13/2020 [facility] 90 mcg/actuation 08/29/2020 12:00:00 AM EDT HFA aerosol inha ler 18 INHALE TWO PUFFS BY MOUTH EVERY 4 HOURS NEEDED INHALE TWO PUFFS BY MOUTH EVERY 4 HOURS NEEDED SOLD: 08/29/2020 [facility] 90 mcg/actuation 08/29/2020 12:00:00 AM EDT HFA aerosol inha ler 18 INHALE TWO PUFFS BY MOUTH EVERY 4 HOURS NEEDED INHALE TWO PUFFS BY MOUTH EVERY 4 HOURS NEEDED SOLD: 09/29/2020 [facility] 90 mcg/actuation 08/29/2020 12:00:00 AM EDT [...] ciprofloxaci n 250 MG Oral Tablet EVA ([facility]) Ciprofloxacin 250 MG Oral Tablet ciprofloxacin 250 mg tablet ciprofloxacin 250 mg tablet completed ciprofloxaci n 250 MG Oral Tablet EVA ([facility]) ferrous sulfate 325 MG Oral Tablet FeroS ul 325 mg (65 mg iron) tablet TAKE ONE TABLET BY MOUTH EVERY DAY FeroSul 325 mg (65 mg iron) tablet TAKE ONE TABLET BY MOUTH EVERY DAY completed ferrou s sulfate 325 MG Oral Tablet [facility] ([facility]) Ciprofloxacin 250 MG Oral Tablet ciprofloxacin 250 mg tablet ciprofloxacin 250 mg tablet completed ciprofloxaci n 250 MG Oral Tablet [facility] ([facility]) Aspirin 81 MG Delayed Release Oral Table t aspirin 81 mg tablet,delayed release TAKE ONE TABLET BY MOUTH EVERY DAY aspirin 81 mg tablet,delayed release ZAIDA E ONE TABLET BY MOUTH EVERY DAY completed aspirin 81 MG Delayed Release Oral Tablet [facility] ([facility]) Potassium Chloride 10 MEQ Extended Relea se Oral Tablet potassium chloride ER 10 mEq tablet,extended release TAKE ONE TABLET BY MOUTH TWICE A DAY WITH FOOD potassium chloride ER 10 mEq tablet,extended release TAKE ONE TABLET BY MOUTH TWICE A DAY WITH FOOD completed potassium chloride 10 MEQ Extended Release Oral Tablet [facility] ([facility]) Sucralfate 1000 MG Oral Tablet sucralfat e 1 gram tablet Take 1 tablet 4 times a day by oral route. sucralfate 1 gram tablet Take 1 tablet 4 times a day by oral route. 1 completed sucralfate 1000 MG Oral Tablet [place] ([facility]) olodaterol 0.0025 MG/ACTUAT / tiotropium 0.0025 MG/ACTUAT Metered Dose Inhaler Stiolto Respimat 2.5 mcg-2.5 mcg/actuation solution for inhalation INHALE TWO PUFFS BY MOUTH EVERY DAY Stiolto Respimat 2.5 mcg-2.5 mcg/actuati on solution for inhalation INHALE TWO PUFFS BY MOUTH EVERY DAY completed olodaterol 0.0025 MG/ACTUAT / tiotropium 0.0025 MG/ACTUAT Inhalation [place] ([facility]) Ciprofloxacin 250 MG Oral Tablet ciprofloxacin 250 mg tablet ciprofloxacin 250 mg tablet completed ciprofloxaci n 250 MG Oral Tablet [place] ([facility]) Insurance Providers Payer name Policy type / Coverage type Policy ID Covered alliance party ID Covered alliance party's relationship to sin Policy Sin Plan Information BLUE CROSS BISHOP PLAN [id number] SP [id number] EXCELL I [id number] Self [id number] MEDICAID M [id number] Self [id number] Managed Care - [facility] Community Plan P [id number] S [id number] Medicaid S [id number] S [id number] MEDICAID -O/P EMERGENCY ROOM [id number] EMEDNY [id number] SP [id number] Medicaid P [id number] S [id number] ANSI-Medicaid [id number] ANSI-Medicaid [id number] ANSI-Medicaid [id number] ANSI-Medicaid [id number] [facility] COMMUNITY PLAN MCDHMO [id number] SP [id number] ANSI-Medicaid [id number] ANSI-Medicaid [id number] ANSI-Medicaid [id number] ANSI-Medicaid [id number] ANSI-Medicaid [id number] ANSI-Medicaid [id number] ANSI-Medicaid [id number] ANSI-Medicaid [id number] ANSI-Medicaid [id number] ANSI-Medicaid [id number] UNITED HE[employer]CARE(MCAID) O [id number] S [id number] [facility] Community Plan Commercial [id number] Self [id number] [employer](MCAID) O [id number] S [id number] [facility] COMMUNITY PLAN MCDHMO [id number] SP [id number] [employer](MCAID) O [id number] S [id number] UNITED HE[employer]CARE O [id number] S [id number] EXCELLUS BCBS B [id number] S [id number] MEDICAID W [id number] S [id number] BLUE CHOICE OPTION O [id number] S [id number] BC HMOBLUE OPTION 2 [id number] 1 [id number] SELF PAY 2 UNAVAILABLE 1 [place] BLE [place] 3 [id number] K HMO BLUE [id number] SP [id number] BLUE CROSS BISHOP PLAN [id number] SP [id number] MEDICAID [id number] SP [id number] UNHC COMMUNITY PLAN MCDHMO [id number] SP [id number] UNHC COMMUNITY PLAN MCDHMO [id number] SP [id number] UNHC COMMUNITY PLAN XIX [id number] 18 [id number] UNHC COMMUNITY PLAN XIX -I/P [id number] 18 [id number] UN COMMUNITY PLAN XIX [id number] Problems, Conditions, and Diagnoses Code Display Name Description Problem Type Effective Dates Data Source(s) Y900 Blood alcohol level of less than 20 mg/1 00 ml Blood alcohol level of less than 20 mg/100 ml Diagnosis 01/30/2021 10:11:00 PM EDT [facility] N2889 Other specified disorders of kidney and ureter Other specified disorders of kidney and ureter Diagnosis 01/30/2021 10:11:00 PM EDT [facility] K219 Gastro-esophageal reflux disease without esophagitis Gastro-esophageal reflux disease without esophagitis Diagnosis 01/30/2021 10:11:00 PM ED T [facility] J449 Chronic obstructive pulmonary disease, u nspecified Chronic obstructive pulmonary disease, unspecified Diagnosis 01/30/2021 10:11:00 PM EDT [facility] R000 Tachycardia, unspecified Tachycardia, unspecified Diag nosis 01/30/2021 10:11:00 PM EDT [facility] F1020 Alcohol dependence, uncomplicated Alcohol depend ence, uncomplicated Diagnosis 01/30/2021 10:11:00 PM EDT [facility] [id number] Nicotine dependence, cigarettes, uncompl icated Nicotine dependence, cigarettes, uncomplicated Diagnosis 01/30/2021 10:11:00 PM EDT [facility] E872 Acidosis Acidosis Diagnosis 01/30/2021 10:11:00 PM ED T [facility] B20 Human immunodeficiency virus [HIV] disea se Human immunodeficiency virus [HIV] disease Diagnosis 01/30/2021 10:11:00 PM EDT [facility] anemia, bed bugs anemia, bed bugs Diagnosis 01/30/2021 08 :46:00 PM EDT [facility] Z1152 ENCOUNTER FOR SCREENING FOR COVID-19 ENCOUNTER F OR SCREENING FOR COVID-19 Diagnosis 01/30/2021 01:50:00 PM EDT [facility] Y999 Unspecified external cause status Unspecified ex ternal cause status Diagnosis 01/30/2021 01:50:00 PM EDT [facility] Y939 Activity, unspecified Activity, unspecified Diagnosis 01/30/2021 01:50:00 PM EDT [facility] [id number] Insect bite (nonvenomous), left lower le g, initial encounter Insect bite (nonvenomous), left lower leg, initial encounter Diagnosis 01/06 01:50:00 PM EDT [facility] [id number] Insect bite (nonvenomous), right lower l eg, initial encounter Insect bite (nonvenomous), right lower leg, initial encounter Diagnosis 01/30/2021 01:50:00 PM EDT [facility] [id number] Insect bite (nonvenomous) of lower back and pelvis, initial encounter Insect bite (nonvenomous) of lower back and pelvis, initial encounter Diagnosis 01/30/2021 01:50:00 PM EDT [facility] [id number] Insect bite (nonvenomous) of left upper arm, initial encounter Insect bite (nonvenomous) of left upper arm, initial encounter Diagnosis 01/30/2021 01:50:00 PM EDT [facility] [id number] Insect bite (nonvenomous) of right upper arm, initial encounter Insect bite (nonvenomous) of right upper arm, initial encounter Diagnosis 01/30/2021 01:50:00 PM EDT [facility] [id number] Insect bite (nonvenomous) of abdominal w all, initial encounter Insect bite (nonvenomous) of abdominal wall, initial encounter Diagnosis 01/30/2021 01:50:00 PM EDT [facility] D649 Anemia, unspecified Anemia, unspecified Diagnosis 0 [facility] 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 Diagnosis 01/04/2021 01:36:00 PM [facility] Z21 Asymptomatic human immunodeficiency viru s [HIV] infection status Asymptomatic human immunodeficiency virus [HIV] infection status Diagnosis 01/04/2021 01:36:00 PM [facility] I10 Essential (primary) hypertension Essential (primary) h ypertension Diagnosis 01/04/2021 01:36:00 PM [facility] R460 Very low level of personal hygiene Very low leve l of personal hygiene Diagnosis 01/04/2021 01:36:00 PM [facility] D509 Iron deficiency anemia, unspecified Iron deficie ncy anemia, unspecified Diagnosis 01/04/2021 01:36:00 PM [facility] R7989 Other specified abnormal findings of blo od chemistry Other specified abnormal findings of blood chemistry Diagnosis 01/04/2021 01:36:00 PM [facility] anemia, bloody stools anemia, bloody stools Diagnosis 11/11/2020 07:23:00 PM [facility] B62971 Invalid ICD10 Description Invalid ICD10 Description Di agnosis 11/11/2020 01:26:00 PM [facility] 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) Diagnosis 11/11/2020 01:26:00 PM [facility] F62911 Nicotine dependence, unspecified, uncomp licated Nicotine dependence, unspecified, uncomplicated Diagnosis 11/11/2020 01:26:00 PM [facility] N281 Cyst of kidney, acquired Cyst of kidney, acquired Diag nosis 11/11/2020 01:26:00 PM [facility] C63703 Alcohol dependence with intoxication, un complicated Alcohol dependence with intoxication, uncomplicated Diagnosis 11/11/2020 01:26:00 PM [facility] B182 Chronic viral hepatitis C Chronic viral hepatitis C Di agnosis 11/11/2020 01:26:00 PM [facility] N200 Calculus of kidney Calculus of kidney Diagnosis 01:26:00 PM [facility] K625 Hemorrhage of anus and rectum Hemorrhage of anus and r ectum Diagnosis 11/11/2020 01:26:00 PM [facility] K29.20 Alcoholic gastritis Acute alcoholic gaby ritis, presence of bleeding unspecified Problem 09/10/2021 12:00:00 AM EDT [facility] ([facility]) 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 Problem 07/23/20 21 12:00:00 AM EDT [facility] ([facility]) [id number] Abnormal findings on diagnostic imaging of lung Abnormal Findings on Diagnostic Imaging of Lung Problem 06/22/2021 12:00:00 AM EDT [place] ([facility]) J98.4 [id number] Cavitating mass of lung Problem 03/12/2021 1 2:00:00 AM EDT [facility] ([facility]) [id number] Anemia Anemia Problem 02/16/2021 12:00:00 AM ED T [place] ([facility]) [id number] Infestation by bed bug Infestation by Bed Bug Problem 02/16/2021 12:00:00 AM EDT [place] ([facility]) [id number] Anemia Anemia Problem 02/16/2021 12:00:00 AM ED T [place] ([facility]) [id number] Infestation by bed bug Infestation by Bed Bug Problem 02/16/2021 12:00:00 AM EDT [place] ([facility]) [id number] Pruritus of skin Pruritus of Skin Problem 02/11/2021 12 :00:00 AM EDT [place] ([facility]) 439872284 Pruritus of skin Pruritus of Skin Problem 02/11/2021 12 :00:00 AM EDT [place] ([facility]) 20574962 Alcohol abuse Alcohol Abuse Problem 11/11/2020 12:00:00 AM EST [place] ([facility]) 79960672 Bipolar disorder Bipolar Disorder Problem 11/11/2020 12 :00:00 AM EST [place] ([facility]) 17527474 Alcohol abuse Alcohol Abuse Problem 11/11/2020 12:00:00 AM [place] [place] ([facility]) 17899582 Bipolar disorder Bipolar Disorder Problem 11/11/2020 12 :00:00 AM TIMMY VELASQUE[facility] ([facility]) 10444535 Alcohol abuse Alcohol Abuse Problem 11/11/2020 12:00:00 AM [place] [place] ([facility]) 59350708 Bipolar disorder Bipolar Disorder Problem 11/11/2020 12 :00:00 AM [facility] [place] ([facility]) 76791104 Alcohol abuse Alcohol Abuse Problem 11/11/2020 12:00:00 AM [facility] [place] ([facility]) 70380967 Bipolar disorder Bipolar Disorder Problem 11/11/2020 12 :00:00 AM [facility] ([facility]) V65.8 Person consulting for explanation of exa mination or test findings Person consulting for explanation of examination or test findings 08/13/2020 02:31:01 PM EDT [facility] 578.1 Hematochezia Hematochezia 08/13/2020 02:31:01 P M EDT [facility] V04.81 Needs influenza immunization Needs influenza immunizat ion 08/13/2020 02:31:01 PM EDT [facility] [id number] Urinary tract infection, site not specif ied Urinary tract infection, site not specified 08/13/2020 02:31:01 PM EDT [facility] 84335190 Alcohol dependence, uncomplicated Alcohol dependence, uncomplicated 08/13/2020 02:31:01 PM EDT [facility] Surgeries/Procedures Procedure Description Date Indications Data Source(s) 09/10/2021 12:00:00 AM EDT paola CW1 ([facility]) Ultrasonography of Bilateral Kidneys Ultrasonography of Bila teral Kidneys 01/31/2021 12:00:00 AM [facility] Introduction of Other Anti-infective int o Peripheral Vein, Percutaneous Approach Introduction of Other Anti-infective int o Peripheral Vein, Percutaneous Approach 01/30/2021 12:00:00 AM [facility] Transfusion of Nonautologous Red Blood C ells into Peripheral Vein, Percutaneous Approach Transfusion of Nonautologous Red Blood C ells into Peripheral Vein, Percutaneous Approach 01/30/2021 12:00:[address] [facility] Introduction of Electrolytic and Water B alance Substance into Peripheral Vein, Percutaneous Approach Introduction of Electrolytic and Water B alance Substance into Peripheral Vein, Percutaneous Approach 01/30/2021 12:00:00 AM EDT [facility] Results ID Date Data Source SABI Gupta [id number] 09/10/2021 12:00:00 AM EDT eCW1 ([facility]) Name Value Range Interpretation Code Description Data Daisy rce(s) Supporting Document(s) 0.22 0.00-0.30 eCW1 ([facility]) F1-F2 . eCW1 ([facility]) 0.32 0.00-0.21 eCW1 ([facility]) . eCW1 ([facility]) 0.25 0.25 eCW1 ([facility]) . eCW1 ([facility]) 199 29-370 eCW1 ([facility]) 102 . eCW1 ([facility]) 62 . eCW1 ([facility]) 241 110-276 eCW1 ([facility]) 0.3 0.0-1.2 eCW1 ([facility]) 261 0-65 eCW1 ([facility]) 178 101-178 eCW1 ([facility]) 144 100-199 eCW1 ([facility]) 33 0-55 eCW1 ([facility]) 46 65-99 eCW1 ([facility]) 58 0-40 eCW1 ([facility]) . eCW1 ([facility]) . eCW1 ([facility]) 96 0-149 eCW1 ([facility]) . eCW1 ([facility]) . eCW1 ([facility]) . eCW1 ([facility]) . eCW1 ([facility]) ID Date Data Source HIV-1 RNA PCR QUANT [id number] (Viral Load) 09/10/2021 12:00:0 0 AM EDT eCW1 ([facility]) Name Value Range Interpretation Code Description Data Daisy rce(s) Supporting Document(s) HIV 1 RNA [Units/volume] (viral load) in Serum or Plasma by Probe with amplification <20 . HIV-1 RNA PCR QUANT 2 [id number] eCW1 ([facility]) ID Date Data Source CD4/CD8 RATIO PROFILE [id number] 09/10/2021 12:00:00 AM EDT eC W1 ([facility]) Name Value Range Interpretation Code Description Data Daisy rce(s) Supporting Document(s) 42.3 30.8-58.5 %CD4 Pos Lymphs eCW1 ([facility]) %CD4 Pos Lymphs Deprecated CD4 in Blood [phone] Abs CD4 Help er eCW1 ([facility]) Abs CD4 Shedd 412 109-897 Abs CD8 Suppres eCW1 ([facility]) Abs CD8 Suppres 41.2 12.0-35.5 % CD8 Pos Lymph eCW1 ([facility]) % CD8 Pos Lymph 1.03 0.92-3.72 CD4/CD8 Ratio eCW1 ([facility]) CD4/CD8 Ratio 2.93 4.14-5.80 RBC eCW1 ([facility]) RBC 8.0 3.4-10.8 WBC eCW1 ([facility]) WBC 106 79-97 MCV eCW1 ([facility]) MCV 31.0 37.5-51.0 HCT eCW1 ([facility]) HCT 11.1 13.0-17.7 HGB eCW1 ([facility]) HGB 35.8 31.5-35.7 MCHC eCW1 ([facility]) MCHC 37.9 26.6-33.0 MCH eCW1 ([facility]) MCH 391 150-450 Platelets eCW1 ([facility]) Platelets 13.6 11.6-15.4 RDW eCW1 ([facility]) RDW 13 Not Estab. Lymphocytes eCW1 ([facility]) Lymphocytes 72 Not Estab. Neutrophils eCW1 ([facility]) Neutrophils 13 Not Estab. Monocytes eCW1 ([facility]) Monocytes 1 Not Estab. Basophils eCW1 ([facility]) Basophils 5.8 1.4-7.0 ABS Neutophils eCW1 ([facility]) ABS Neutophils 0 Not Estab. Eosinophils eCW1 ([facility]) Eosinophils 1.0 0.7-3.1 ABS Lymphs eCW1 ([facility]) ABS Lymphs 0.0 0.0-0.4 ABS Eosinophils eCW1 ([facility]) ABS Eosinophils 0.1 0.0-0.2 ABS Basophils eCW1 ([facility]) ABS Basophils 1.0 0.1-0.9 ABS Monocytes eCW1 ([facility]) ABS Monocytes ID Date Data Source Comprehensive Metabolic Profile (CMP) 09/10/2021 12:00:00 AM EDT eCW1 ([facility]) Name Value Range Interpretation Code Description Data Daisy rce(s) Supporting Document(s) 0.59 0.70-1.30 CREATININE FOR GFR eCW1 ([facility]) 37 70-100 GLUCOSE, FASTING eCW1 ([facility]) 5 7-18 BLOOD UREA NITROGEN eCW1 ([facility]) 4.1 3.5-5.1 POTASSIUM SERUM eCW1 ([facility]) > 60.0 >56 GLOMERULAR FILTRATION RATE eCW 1 ([facility]) 138 136-145 SODIUM LEVEL eCW1 ([facility]) 9.1 8.5-10.1 CALCIUM LEVEL eCW1 ([facility]) 23 21-32 CARBON DIOXIDE LEVEL eCW1 ([facility]) 103 98-107 CHLORIDE LEVEL eCW1 ([facility]) 51 7-37 AST/SGOT eCW1 ([facility]) 160 45-117 ALKALINE PHOSPHATASE eCW1 ([facility]) 0.3 0.2-1.0 BILIRUBIN,TOTAL eCW1 ([facility]) 42 12-78 ALT/SGPT eCW1 ([facility]) 0.6 ALBUMIN/GLOBULIN RATIO eCW1 ([facility]) 5.8 6.4-8.2 TOTAL PROTEIN eCW1 ([facility]) 2.1 3.2-5.2 ALBUMIN eCW1 ([facility]) ID Date Data Source SPUTUM CULTURE AND GRAM STAIN 07/23/2021 12:00:00 AM EDT eCW 1 ([facility]) Name Value Range Interpretation Code Description Data Daisy rce(s) Supporting Document(s) SPUTUM CULTURE AND GRAM STAIN eCW1 ([facility]) ID Date Data Source AFB SMEAR & CULTURE 07/23/2021 12:00:00 AM EDT eCW1 ([facility]) Name Value Range Interpretation Code Description Data Daisy rce(s) Supporting Document(s) AFB SMEAR & CULTURE eCW1 ([facility]) ID Date Data Source [id number] 06/04/2021 06:47:00 PM EDT [facility] Name Value Range Interpretation Code Description Data Daisy rce(s) Supporting Document(s) SARS coronavirus 2 RNA [Presence] in Res piratory specimen by OCTAVIA with probe detection NEGATIVE [facility] This lab was ordered by [facility] a nd reported by [facility]. ID Date Data Source TOTAL IRON BINDING CAPACIT 06/04/2021 12:00:00 AM EDT eCW1 ( [facility]) Name Value Range Interpretation Code Description Data Daisy rce(s) Supporting Document(s) 84 65-175 IRON (FE) eCW1 ([facility]) 180 250-450 TOTAL IRON BINDING CAPACI TY eCW1 ([facility]) 46.7 19.7-50.0 PERCENT SATURATION eCW1 ([facility]) ID Date Data Source CBC with Differential 06/04/2021 12:00:00 AM EDT eCW1 ([facility]) Name Value Range Interpretation Code Description Data Daisy rce(s) Supporting Document(s) 9.9 4.0-10.0 WHITE BLOOD COUNT eCW1 ([facility]) 102.4 80.0-96.0 MEAN CORPUSCULAR VOLUME e CW1 ([facility]) 42.6 42.0-52.0 HEMATOCRIT eCW1 ([facility]) 13.7 13.5-17.5 HEMOGLOBIN eCW1 ([facility]) 4.16 4.30-6.10 RED BLOOD COUNT eCW1 ([facility]) 293 150-450 PLATELET COUNT, AUTOMATED eCW1 ([facility]) 17.9 11.5-14.5 RED CELL DISTRIBUTION WID TH eCW1 ([facility]) 32.9 27.0-33.0 MEAN CORPUSCULAR HEMOGLOB IN eCW1 ([facility]) 32.2 32.0-36.5 MEAN CORPUSCULAR HGB CONC eCW1 ([facility]) 0.6 0.0-3.0 EOS % eCW1 ([facility]) 8.7 24.0-44.0 LYMPH % eCW1 ([facility]) 76.2 36.0-66.0 NEUTROPHILS % eCW1 ([facility]) 11.1 2.0-8.0 MONO % eCW1 ([facility]) 7.5 1.5-8.5 NEUTROPHILS # eCW1 ([facility]) 1.0 0.0-1.0 BASO % eCW1 ([facility]) 1.1 0.0-0.8 MONO # eCW1 ([facility]) 0.1 0.0-0.2 BASO # eCW1 ([facility]) 0.1 0.0-0.5 EOS # eCW1 ([facility]) 0.9 1.5-5.0 LYMPH # eCW1 ([facility]) ID Date Data Source QUANTIFERON TB GOLD TEST 03/12/2021 12:00:00 AM EDT eCW1 ([facility]) Name Value Range Interpretation Code Description Data Daisy rce(s) Supporting Document(s) Laboratory studies (set) QUANTIFERON TB GOLD TEST eCW1 ([facility]) ID Date Data Source HISTOPLASMA ANTIGEN BLOOD PCR 03/12/2021 12:00:00 AM EDT eCW 1 ([facility]) Name Value Range Interpretation Code Description Data Daisy rce(s) Supporting Document(s) HISTOPLASMA ANTIGEN BLOOD PCR eCW1 ([facility]) ID Date Data Source FUNGUS SM & CULT OTHER SOURCE 03/12/2021 12:00:00 AM EDT eCW 1 ([facility]) Name Value Range Interpretation Code Description Data Daisy rce(s) Supporting Document(s) FUNGUS SM & CULT OTHER SOURCE eCW1 ([facility]) ID Date Data Source [id number] 03/12/2021 12:00:00 AM EDT eCW1 ([facility]) Name Value Range Interpretation Code Description Data Daisy rce(s) Supporting Document(s) 1182 VITAMIN B12 LEVEL eCW1 ([facility]) 9.8 FOLATE eCW1 ([facility]) ID Date Data Source [id number] 03/04/2021 02:25:00 PM EDT [place] ([facility]) Name Value Range Interpretation Code Description Data Daisy rce(s) Supporting Document(s) ID Date Data Source [id number] 03/04/2021 02:08:00 PM EDT [facility]) Name Value Range Interpretation Code Description Data Daisy rce(s) Supporting Document(s) MRSA PCR screen not detected negative MRSA PCR Screen AT [facility] ([facility]) ID Date Data Source [id number] 03/04/2021 06:32:00 AM EDT [place] ([facility]) Name Value Range Interpretation Code Description Data Daisy rce(s) Supporting Document(s) blood urea nitrogen 9 mg/dL 7-18 Blood Urea Nitro gen [place] ([facility]) glucose, fasting 80 mg/dL 70-100 Glucose, Fasting AT [facility] ([facility]) glomerular filtration rate > 60.0 >56 Glomerula r Filtration Rate [place] ([facility]) creatinine for GFR 0.72 mg/dL 0.70-1.30 Creatinine for GF R [place] ([facility]) sodium level 136 mEq/L 136-145 Sodium Level [place] ([facility]) potassium serum 3.9 mEq/L 3.5-5.1 Potassium Serum [facility] ([facility]) chloride level 106 mEq/L 98-107 Chloride Level [place] ([facility]) carbon dioxide level 23 mEq/L 21-32 Carbon Dioxide Level [place] ([facility]) anion gap 7 mEq/L 8-16 Below low normal Anion Gap [place] ( [facility]) calcium level 8.1 mg/dL 8.5-10.1 Below low normal Calcium Level AT [facility]) ID Date Data Source [id number] 03/04/2021 06:32:00 AM EDT [place] ([facility]) Name Value Range Interpretation Code Description Data Daiys rce(s) Supporting Document(s) reticulocyte % 3.6 % 0.5-1.5 Above high normal Reticulocyte % [place] ([facility]) reticulocyte # 96.9 10 17-77 Above high normal Reticulocyte # [place] ([facility]) retic hemoglobin equivalent 29.5 pg 24-36 Retic He moglobin Equivalent [facility]) ID Date Data Source [id number] 03/04/2021 06:32:00 AM EDT [facility]) Name Value Range Interpretation Code Description Data Daisy rce(s) Supporting Document(s) red blood count 2.70 10 4.30-6.10 Below low normal Red Blood Coun t [facility] ([facility]) white blood count 12.9 10 4.0-10.0 Above high normal White Blood Count [place] ([facility]) hemoglobin 7.9 g/dL 13.5-17.5 Below low normal Hemoglobin [place] ( [facility]) hematocrit 24.5 % 42.0-52.0 Below low normal Hematocrit [place] ( [facility]) mean corpuscular volume 90.7 fL 80.0-96.0 Mean Corpusc ular Volume [place] ([facility]) mean corpuscular hemoglobin 29.3 pg 27.0-33.0 Mean Cor puscular Hemoglobin [place] ([facility]) red cell distribution width 17.9 % 11.5-14.5 Above high no rmal Red Cell Distribution Width [place] ([facility]) mean corpuscular HGB conc 32.2 g/dL 32.0-36.5 Mean Corpu scular HGB Conc [place] ([facility]) nucleated red blood cell % 0.7 % 0-0 Above high nor mal Nucleated Red Blood Cell % [place] ([facility]) platelet count, automated 675 10 150-450 Platelet C ount, Automated [facility]) ID Date Data Source [id number] 03/04/2021 06:28:00 AM EDT [facility]) Name Value Range Interpretation Code Description Data Daisy rce(s) Supporting Document(s) procalcitonin Procalcitonin [place] ([facility]) ID Date Data Source [id number] 03/03/2021 07:05:00 PM EDT [facility]) Name Value Range Interpretation Code Description Data Daisy rce(s) Supporting Document(s) blood type O positive Blood Type [place] ([facility]) Ab screen (indirect vidya)vis negative Ab Sc reen (Indirect Vidya)vis [facility]) ID Date Data Source [id number] 03/03/2021 07:05:00 PM EDT [place] ([facility]) Name Value Range Interpretation Code Description Data Daisy rce(s) Supporting Document(s) packed cells transfused product: packed cells count: 2 Packed Cells [place] ([facility]) ID Date Data Source [id number] 03/03/2021 05:44:00 PM EDT [place] ([facility]) Name Value Range Interpretation Code Description Data Daisy rce(s) Supporting Document(s) influenza A amplification negative negative Influenza a Amplification [place] ([facility]) influenza B amplification negative negative Influenza B Amplification [place] ([facility]) RSV amplification negative negative RSV Amplification [place] ([facility]) sars covid-19 amplification negative negative Sars Cov id-19 Amplification [facility]) ID Date Data Source [id number] 03/03/2021 05:44:00 PM EDT [facility] Name Value Range Interpretation Code Description Data Daisy rce(s) Supporting Document(s) SARS coronavirus 2 RNA [Presence] in Res piratory specimen by OCTAVIA with probe detection NEGATIVE [facility] This lab was ordered by [facility] a nd reported by [facility]. ID Date Data Source [id number] 03/03/2021 11:22:00 AM EDT [facility]) Name Value Range Interpretation Code Description Data Daisy rce(s) Supporting Document(s) red blood count 2.04 10 4.30-6.10 Below low normal Red Blood Coun t [place] ([facility]) white blood count 15.7 10 4.0-10.0 Above high normal White Blood Count [place] ([facility]) hemoglobin 6.2 g/dL 13.5-17.5 Below low normal Hemoglobin [place] ( [facility]) hematocrit 20.0 % 42.0-52.0 Below low normal Hematocrit [place] ( [facility]) mean corpuscular volume 98.0 fL 80.0-96.0 Above high normal Mean Corpuscular Volume [facility] ([facility]) mean corpuscular HGB conc 31.0 g/dL 32.0-36.5 Below low rocio l Mean Corpuscular HGB Conc [facility] ([facility]) mean corpuscular hemoglobin 30.4 pg 27.0-33.0 Mean Cor puscular Hemoglobin [facility] ([facility]) red cell distribution width 18.6 % 11.5-14.5 Above high no rmal Red Cell Distribution Width [facility] ([facility]) platelet count, automated 791 10 150-450 Above high norm al Platelet Count, Automated [facility] ([facility]) neutrophils % 79.4 % 36.0-66.0 Above high normal Neutrophils % [facility] ([facility]) lymph % 4.5 % 24.0-44.0 Below low normal Lymph % [facility] ( [facility]) mono % 10.7 % 2.0-8.0 Above high normal [place] % [facility] ([facility]) baso % 0.3 % 0.0-1.0 Baso % [facility] ([facility]) eos % 0.1 % 0.0-3.0 Eos % [facility] ([facility]) immature granulocyte % 5.0 % 0-3.0 Above high normal Immatu re Granulocyte % [facility] ([facility]) nucleated red blood cell % 0.6 % 0-0 Above high nor mal Nucleated Red Blood Cell % [facility] ([facility]) neutrophils # 12.5 10 1.5-8.5 Above high normal Neutrophils # [facility] ([facility]) mono # 1.7 10 0.0-0.8 Above high normal [place] # [facility] ([facility]) lymph # 0.7 10 1.5-5.0 Below low normal Lymph # [facility] ( [facility]) eos # 0.0 10 0.0-0.5 Eos # [facility] ([facility]) baso # 0.0 10 0.0-0.2 Baso # [facility] ([facility]) ID Date Data Source [id number] 03/03/2021 11:22:00 AM EDT [place] ([facility]) Name Value Range Interpretation Code Description Data Daisy rce(s) Supporting Document(s) ferritin 93 NG/mL 26-388 Ferritin [facility] ([facility]) ID Date Data Source [id number] 03/03/2021 11:22:00 AM EDT [facility] ([facility]) Name Value Range Interpretation Code Description Data Daisy rce(s) Supporting Document(s) iron (fe) 19 ug/dL 65-175 Below low normal Iron (Fe) [place] ( [facility]) percent saturation 10.2 % 19.7-50.0 Below low normal Percent Sat uration [facility] ([facility]) total iron binding capacity 187 ug/dL 250-450 Below low nor mal Total Iron Binding Capacity [place] ([facility]) ID Date Data Source [id number] 03/03/2021 11:22:00 AM EDT [place] ([facility]) Name Value Range Interpretation Code Description Data Daisy rce(s) Supporting Document(s) glucose, fasting 92 mg/dL 70-100 Glucose, Fasting AT [facility]) blood urea nitrogen 11 mg/dL 7-18 Blood Urea Nitro gen [facility] ([facility]) creatinine for GFR 0.94 mg/dL 0.70-1.30 Creatinine for GF R [facility] ([facility]) glomerular filtration rate > 60.0 >56 Glomerula r Filtration Rate [facility] ([facility]) sodium level 133 mEq/L 136-145 Below low normal Sodium Level [facility] ([facility]) chloride level 103 mEq/L 98-107 Chloride Level [place] ([facility]) potassium serum 4.8 mEq/L 3.5-5.1 Potassium Serum [facility] ([facility]) anion gap 7 mEq/L 8-16 Below low normal Anion Gap [facility] ( [facility]) carbon dioxide level 23 mEq/L 21-32 Carbon Dioxide Level [place] ([facility]) calcium level 8.8 mg/dL 8.5-10.1 Calcium Level [facility] ( [facility]) AST/SGOT 33 U/L 7-37 AST/SGOT [facility] ([facility]) ALT/SGPT 32 U/L 12-78 ALT/SGPT [facility] ([facility]) alkaline phosphatase 121 U/L 45-117 Above high normal Alkaline Phosphatase [facility] ([facility]) total protein 6.1 gm/dL 6.4-8.2 Below low normal Total Protein AT [facility] ([facility]) albumin 2.1 gm/dL 3.2-5.2 Below low normal Albumin [facility] ( [facility]) bilirubin,total 0.2 mg/dL 0.2-1.0 Bilirubin,total [facility] ([facility]) albumin/globulin ratio Albumin/globu fermin Ratio [facility] ([facility]) ID Date Data Source [id number] 02/02/2021 11:51:00 [place] [address] PHONE: [phone] FAX: [phone] Name .................. : KATHLEEN Le Acct Number.................. : [id number] ROOM. ................. : 109-1 MR Number ................... : [id number] Stay type ............. : I/P Discharge Date......... ... : Admit Date ......... : 01/30/21 Admit Phys .................... : EDU RENTERIA Date of ....... : 1965 Family Phys ................... : NON STAFF Phone .................. : [phone] Age ................................ : 55 Film# .................. .:[id number] Sex ................................. : M Unsigned transcriptions are preliminary reports and do not represent a medical or legal document CT ABD & PELVIS W/ IV ONLY [id number] COMPLETE:01/30/21 17:42 RLB [id number] Reason(s): elevated lactic [...] nodes: No adenopathy. Page 1 of 2 [facility] [address] [place] [address] PHONE: [phone] FAX: [phone] Name .................. : KATHLEEN Le Acct Number.................. : [id number] ROOM. ................. : 109-1 Number ................... : [id number] Stay type ............. : I/P Discharge Date......... ... : Admit Date ......... : 01/30/21 Admit Phys .................... : EDU DEXTER Date of ....... : 1965 Family Phys ................... : NON STAFF Phone .................. : [phone] Age ................................ : 55 Film# .................. .:[id number] Sex ................................. : M Unsigned transcriptions are preliminary reports and do not represent a medical or legal document CT ABD & PELVIS W/ IV ONLY [id number] COMPLETE:01/30/21 17:42 RLB 7208 Reason(s): elevated lactic [...] MD , 02/02/21 11:51, APM Transcribe Initials: KORTNEY , Transcribe Date: 01/31/21 01:40, Dictation Date: Copy for: [facility] REC DISCHARGED Page 2 of 2 Name Value Range Interpretation Code Description Data Daisy rce(s) Supporting Document(s) ID Date Data Source [id number] 02/02/2021 10:29:00 AM EDT [facility] [address] [place] [address] PHONE: [phone] FAX: [phone] Name .................. : KATHLEEN Le Acct Number.................. : [id number] ROOM. ................. : 109-1 MR Number ................... : [id number] Stay type ............. : I/P Discharge Date......... ... : Admit Date ......... : 01/30/21 Admit Phys .................... : EDU RENTERIA Date of ....... : 1965 Family Phys ................... : NON STAFF Phone .................. : [phone] Age ................................ : 55 Film# .................. .:[id number] Sex ................................. : M Unsigned transcriptions are preliminary reports and do not represent a medical or legal document CHEST PORTABLE [id number] COMPLETE:01/30/21 18:27 [facility] 7209 Reason(s): elevated lactic acid PORTABLE CHEST [...] DO , 02/02/21 10:29, YANIRA Transcribe Initials: DZ , Transcribe Date: 01/31/21 09:29, Dictation Date: Copy for: 710 [facility] REC DISCHARGED Page 1 of 1 Name Value Range Interpretation Code Description Data Daisy rce(s) Supporting Document(s) ID Date Data Source [id number] 02/02/2021 09:53:00 [place] [address] PHONE: [phone] FAX: [phone] Name .................. : KATHLEEN Le Acct Number.................. : [id number] ROOM. ................. : 109-1 MR Number ................... : [id number] Stay type ............. : I/P Discharge Date......... ... : Admit Date ......... : 01/30/21 Admit Phys .................... : EDU RENTERIA Date of ....... : 1965 Family Phys ................... : NON STAFF Phone .................. : [phone] Age ................................ : 55 Film# .................. .:[id number] Sex ................................. : M Unsigned transcriptions are preliminary reports and do not represent a medical or legal document US RENAL LIMITED [id number] COMPLETE:01/31/21 08:49 KNB 7230 (PROCEDURE REASON :MASS [...] JUAN MIGUEL PALACIOS MD , 02/02/21 09:53, [facility] Transcribe Initials: DZ , Transcribe Date: 01/31/21 09:19, Dictation Date: Copy for: [facility] REC DISCHARGED Page 1 of 1 Name Value Range Interpretation Code Description Data Daisy rce(s) Supporting Document(s) ID Date Data Source [id number] 02/02/2021 09:19:00 [place] [address] RESPIRATORY CARE REPORT ==== ---------NAME------- NUMBER SEX AGE ADMIT DISC. XRAY# F/C LINO Le [id number] M 55 01/30/21 01/31/21 [id number] X6 I/P DATE OF : 1965 M/R# [id number] #: [id number] 109-1 LOCATION: EMERGENCY DEPT EKG [id number] COMP LETE:01/31/21 00:29 T [id number] PHYSICIAN: EDU BARBOUR SAVANNAH Name Value Range Interpretation Code Description Data Daisy rce(s) Supporting Document(s) ID Date Data Source [id number] 01/31/2021 08:41:00 AM EDT [facility] Value Range Interpretation Code Description Data Daisy rce(s) Supporting Document(s) Ammonia [Mass/volume] in Plasma 52.0 UG/DL 27.2 - 102 [facility] ID Date Data Source [id number] 01/31/2021 08:37:00 AM EDT [facility] Name Value Range Interpretation Code Description Data Daisy rce(s) Supporting Document(s) Ethanol [Moles/volume] in Blood <10.0 MG/DL [facility] ALCOHOL % 0.01 % 0.00 - 0.01 [facility] ital *FOR MEDICAL PURPOSES ONLY * ID Date Data Source [id number] 01/31/2021 08:06:00 AM EDT [facility] Name Value Range Interpretation Code Description Data Daisy rce(s) Supporting Document(s) Thyrotropin [Units/volume] in Serum or Plasma by Detec tion limit <= 0.05 mIU/L 5.69 uIU/mL 0.47 - 5.01 H [facility] ID Date Data Source [id number] 01/31/2021 08:06:00 AM EDT [facility] Value Range Interpretation Code Description Data Daisy rce(s) Supporting Document(s) COMPREHENSIVE METABOLIC PANEL [facility] COMPREHENSIVE METABOLIC PANEL Sodium [Moles/volume] in Serum or Plasma 136 mEq/L 134 - 153 [facility] Potassium [Moles/volume] in Serum or Plasma 3.8 mEq/L 3.6 - 5.0 [facility] Chloride [Moles/volume] in Serum or Plasma 107 mEq/L 98 - 107 [facility] Carbon dioxide, total [Moles/volume] in Serum or Plasma 23 MEQ/L 22 - 30 [facility] Glucose [Mass/volume] in Serum or Plasma 93 MG/DL 70 - 99 [facility] BUN 8 MG/DL 7 - 21 [facility] Creatinine [Mass/volume] in Serum or Plasma 0.6 MG/DL 0.7 - 1.5 L [facility] BUN/CREAT 13 8 - 27 [facility] Protein [Mass/volume] in Serum or Plasma 4.5 G/DL 6.3 - 8.2 L [facility] Albumin [Mass/volume] in Serum or Plasma 2.8 G/DL 3.9 - 5.0 L [facility] Globulin [Mass/volume] in Serum by calculation 1.7 GM/DL 2.4 - 3.2 L [facility] A/G RATIO 1.6 0.8 - 2.0 [facility] Calcium [Mass/volume] in Serum or Plasma 8.0 MG/DL 8.4 - 10.2 L [facility] Bilirubin.total [Mass/volume] in Serum or Plasma 0.9 MG/DL 0.2 - 1.3 [facility] Alkaline phosphatase [Enzymatic activity/volume] in Serum or Plasma 64 U/L 38 - 126 [facility] Aspartate aminotransferase [Enzymatic activity/volume] in Serum or Plasma 19 U/L 5 - 40 [facility] Alanine aminotransferase [Enzymatic activity/volume] in Seru m or Plasma 14 U/L 7 - 56 [facility] Anion gap 3 in Serum or Plasma 6.0 mmol/L 8.0 - 16.0 L [facility] AGE 55 yrs [facility] al NON-AA GFR >60 mL/min [facility] ital AFR AMER GFR >60 mL/min [facility] spital Male GFR In terprentation 20-49 [...] >32 mL/min Normal ID Date Data Source [id number] 01/31/2021 08:06:00 AM EDT [facility] Name Value Range Interpretation Code Description Data Daisy rce(s) Supporting Document(s) Magnesium [Mass/volume] in Serum or Plasma 1.7 MG/DL 1.7 - 2.2 [facility] ID Date Data Source [id number] 01/31/2021 07:55:00 AM EDT [facility] Name Value Range Interpretation Code Description Data Daisy rce(s) Supporting Document(s) CBC W/AUTOMATED DIFF [facility] COMPLETE BLOOD COUNT Leukocytes [#/volume] in Blood by Automated count 6.9 10^3/uL 4.2 - 1 1.0 [facility] Erythrocytes [#/volume] in Blood by Automated count 2.51 10^6/uL 4. 50 - 6.30 L [facility] Hemoglobin [Mass/volume] in Blood 8.2 g/dL 14.0 - 16.0 L [facility] Hematocrit [Volume Fraction] of Blood by Automated count 25.2 % 4 1.0 - 51.0 L [facility] Erythrocyte mean corpuscular volume [Entitic volume] b y Automated count 100.4 fL 80.0 - 94.0 H [facility] Erythrocyte mean corpuscular hemoglobin [Entitic mass] by Automated count 32.7 pg 27.0 - 34.0 [facility] Erythrocyte mean corpuscular hemoglobin concentration [Mass/volume] by Automated count 32.5 g/dL 31.0 - 36.0 [facility] Erythrocyte distribution width [Ratio] by Automated count 18.0 % 11.5 - 14.8 H [facility] Platelets [#/volume] in Blood by Automated count 285 10^3/uL 150 - 45 0 [facility] Platelet mean volume [Entitic volume] in Blood by Automated count 10.1 fL 7.4 - 10.4 [facility] Neutrophils/100 leukocytes in Blood by Automated count 69.8 % 37. 0 - 80.0 [facility] Lymphocytes/100 leukocytes in Blood by Manual count 10.1 % 25.0 - 40.0 L [facility] Monocytes/100 leukocytes in Blood by Automated count 14.4 % 3.0 - 8.0 H [facility] Eosinophils/100 leukocytes in Blood by Automated count 4.1 % 0.0 - 7.0 [facility] Basophils/100 leukocytes in Blood by Automated count 1.0 % 0.0 - 2.0 [facility] %IG 0.6 % 0.0 - 0.0 H [facility] al %NRBC 1.7 % 0.0 - 0.0 [facility] Neutrophils [#/volume] in Blood by Automated count 4.79 10^3/uL 2.00 - 6.90 [facility] Lymphocytes [#/volume] in Blood by Automated count 0.69 10^3/uL 0.60 - 3.40 [facility] Monocytes [#/volume] in Blood by Automated count 0.99 10^3/uL 0.00 - 0.90 H [facility] Eosinophils [#/volume] in Blood by Automated count 0.28 10^3/uL 0.00 - 0.70 [facility] Basophils [#/volume] in Blood by Automated count 0.07 10^3/uL 0.00 - 0.20 [facility] #IG 0.04 10^3/uL 0.00 - 0.10 [facility]ital #NRBC 0.12 10^3/uL 0.00 - 0.00 H [facility] ospital MANUAL DIFF NOT INDICATED [facility] RBC MORPH NOT INDICATED [facility] spital ID Date Data Source [id number] 01/31/2021 07:52:00 AM EDT [facility] Name Value Range Interpretation Code Description Data Daisy rce(s) Supporting Document(s) Prothrombin time (PT) 14.1 SECONDS 11.0 - 15.5 [facility] INR in Platelet poor plasma by Coagulation assay 1.04 0.93 - 1. 23 [facility] \\BLDo\\INR INTERPRETATION\\BLDx\\ Therapeutic range for Coumadin and related oral anticoagulants. - International Normalized Ratio (INR): 2.0 - 3.0 for Venous Thrombosis, Pulmonary Embolus, Tissue heart valves, Acute VA, Atrial Fibrillation, Valvular heart disease and recurrent Systemic Embolism. -International Normalized Ratio (INR): 2.5 - 3.5 for Mechanical Prosthetic valve. ID Date Data Source [id number] 01/31/2021 07:51:00 AM EDT [facility] Name Value Range Interpretation Code Description Data Daisy rce(s) Supporting Document(s) Lactate [Moles/volume] in Serum or Plasma 1.1 MMOL/L 0.2 - 2.2 [facility] ID Date Data Source [id number] 01/30/2021 01:50:00 PM EDT [facility] 1 OrderSheet [facility] Emergency Department [address] [place] [address] Phone #: ext- [phone] 01/30/2021 13:49 Patient: ENID WANG Sex: M : 1965 Age: 55yWEIGHT:54.4 kg (S) HEIGHT:63 inches (S) BMI:21.3ALLERGIES: Abacavir, Bactrim, Bee stings, Penicillins, Sulfa AntibioticsDIAGNOSIS: Problem, Anemia, Insect bite - woundLAB ORDERSOrder Description Priority Entered Acknowledged InitialedCBC w Diff STAT 14:26 01/30/2021 14:27 [place]; Maryann KYLECMP STAT 14:01/30/2021 14:27 [place]; Maryann RNType and Screen STAT 14:26 01/30/2021 14:27 [place]; Maryann RNPT/PTT STAT 14:33 01/30/2021 14:38 [place]; Maryann KYLEOccult Blood Stool 14:33 01/30/2021 14:38 RosayDiagnostic 1 slide [place]; Maryann KYLELactic Acid STAT 14:33 01/30/2021 14:38 [place]; Maryann KYLEUrinalysis (Clean STAT 16:45 01/30/2021 18:57 RosayCpamela [place]; Maryann KYLECOVID-19 CAH (Not STAT 16:45 01/30/2021 17:21 TerrySymptomatic as [place]; Maryann RNDefined by [facility])(01/30/21) (FirstTest) (Hospitalized)(Not ) (NotResident inCongregate CareSetting) (NotEmployed inHealthcare Setting)Blood Bank -see STAT 16:46 01/30/2021 17:21 Terrypaper order [place]; Maryann RNLactic Acid STAT 17:58 01/30/2021 18:06 H[place]ctor [place]; Maryann KYLELactic Acid STAT 18:31 01/30/2021 18:40 Bayron England R.N.; Maryann KYLE Verbal order per; [place] 2 OrderSheet [facility] Emergency Department [address] [place] [address] Phone #: ext- [phone] 01/30/2021 13:49 Patient: ENID WANG Sex: M : 1965 Age: 55yBlood Culture STAT 19:53 01/30/2021 20:26 Eh,q10m X2 (Sched [place] Rader19:53 01/30/2021)Blood Culture STAT 19:53 01/30/2021 20:26 Bisha,q10 m X2 (Sched [place]; Btalqyh04:03 01/30/2021)DIAGNOSTIC STUDY ORDERSOrder Description Priority Entered Acknowledged InitialedCT Abd PEL W/ IV STAT 16:39 01/30/2021 17:21 TerryContrast Only [place]; Maryann RN(Oxygen?(No))(IV?(Yes)) Reason for Study: elevated lactic acidChest Portable 1 STAT 16:39 01/30/2021 17:21 [place]; Maryann KYLE(Oxygen?(No)) Reason for Study: elevated lactic acidMEDICATION/IV/DRIP/FLUID ORDERSOrder Description Priority Entered Acknowledged InitialedNS IV : Bolus 500 16:01 01/30/2021 16:21 TerrymL, then 100 mL/hr [place]; Maryann RN(NOW x1)NS IV 1000 mL 17:58 01/30/2021 18:38 TerryBolus: : Bolus 1000 [place]; Maryann RNmL (X1)Cefepime (1 g/50 19:59 01/30/2021 20:19 Bisha,mL) IVPB 1000 mg [place]; Prasanth(in 50 mL D5W,NOW x1) Reason for ordering with alerts: Clinical consideration given -- 19:59 01/30/2021 [place] Bar[place] PANS IV 1000 mL 20:37 01/30/2021 21:00 Bisha,Bolus: : Bolus 1000 [place]; GregorymL (X1)GENERAL ORDERSOrder Description Priority Entered Acknowledged InitialedCardiac Monitor 14:33 01/30/2021 14:34 [place] [facility](continuous) [place]; [employer] [id number] Oximetry 14:33 01/30/2021 14:34 [place] [facility] 3 OrderSheet [facility] Emergency Department [address] [place] [address] Phone #: ext- [phone] 01/30/2021 13:49 Patient: ENID WANG Sex: M : 1965 Age: 55yContinuous [place]; [employer] [id number] Pressure 14:33 01/30/2021 14:34 [place] EDMonitor [place]; [employer] Uksp7Mtmybr 14:33 01/30/2021 14:34 [place] [facility] [place]; [employer] [id number] 14:35 01/30/2021 14:38 [place]; Maryann RNConsult - 17:11 01/30/2021 17:21 [facility] [place]; Maryann KYLE[Electronically signed by [place] (21:49 01/30/2021)][Electronically signed by Prasanth Stauffer (23:35 01/30/2021)][Electronically locked by Prasanth Stauffer (23:35 01/30/2021)] Name Value Range Interpretation Code Description Data Daisy rce(s) Supporting Document(s) ID Date Data Source [id number] 01/30/2021 01:50:00 PM EDT [facility] 1 Medication Reconciliation Report [facility] Emergency Department [address] [place] [address] Phone #: [phone]- [phone] 01/30/2021 13:49 Patient: ENID WANG Sex: M [...] rce(s) Supporting Document(s) ID Date Data Source [id number] 01/30/2021 01:50:00 PM EDT [facility] 1 Medication Administration Record [facility] Emergency Department [address] [place] [address] Phone #: ext- [phone] 01/30/2021 13:49 Patient: ENID WANG Sex: M : 1965 Age: 55yWeight: 54.4 kgHeight/Length: 63 inBMI: 21.2ALLERGIES: Abacavir, Bactrim, Bee stings, Penicillins, Sulfa Antibiotics Date/Time Medication Administered Medication OrderedStart NS [IV] NS IV : Bolus 500 mL, then 96662:15 01/30/2021 Dose: IV Fluids mL/hr (NOW x1)Héctor Wolf RN Rate: 100 mL/hr over 5 hour(s)---- Bolus: 500 mL over 1 hour(s)Stop Dispensed: 1000 mL bag17:35 01/30/2021 Site: #1 right wristTerry MAR Wolftart NS [IV] NS IV 1000 mL Bolus: : Bolus [id number]:38 01/30/2021 Dose: IV Fluids mL (X1)Héctor Wolf RN Bolus: 1000 mL over 1 hour(s)---- Dispensed: 1000 mL bagStop Site: #1 right wrist20:19 1BPrasanth baird,Mirtha CEFEPIME [IVPB] Cefepime (1 g/50 mL) IVPB 610153:19 01/30/2021 Dose: 1 gm IVPB mg (in 50 mL D5W, NOW x1)Prasanth Stauffer, Rate: 100 mL/hr over 30 minute(s)---- Dispensed: 50 mL bagStop Site: #1 right wrist21:23 01/30/2021Prasanth baird,Start SODIUM CHLORIDE [IV] NS IV 1000 mL Bolus: : Bolus 958997:00 01/30/2021 Dose: IV Fluids mL (X1)Prasanth Stauffer, Bolus: 1000 mL over 40 minute(s)---- Dispensed: 1000 mL bagStop Site: #2 left :41 01/30/2021Prasanth baird, Name Value Range Interpretation Code Description Data Daisy rce(s) Supporting Document(s) ID Date Data Source [id number] 01/30/2021 01:50:00 PM EDT [facility] 1 General Instructions [facility] Emergency Department [address] [place] [address] Phone #: ext- [phone] 01/30/2021 13:49 Patient: ENID WANG Sex: M : 1965 Age: 55ySevere chronic anemia.Insect bite. (bed bug infestation).Abnormal tests; (elevated lactic acid).(? sepsis, elevated lactate, tachycardia).(Electronically signed by MIKAELA Conklin 01/30/2021 21:49) Name Value Range Interpretation Code Description Data Daisy rce(s) Supporting Document(s) ID Date Data Source [id number] 01/30/2021 01:50:00 PM EDT [facility] 1 Clinical Report - Nurses [facility] Emergency Department [address] [place] [address] Phone #: ext- [phone] 01/30/2021 13:49 Patient: ENID WANG Sex: M : 1965 Age: 55yTRIAGEArrived by EMS, and from the physician's office. Historian: patient. ( pt seen at [facility] office andsent to ED for blood transfusion from multiple bug bites, pt stating walking well no weakness, has hx bedbugs for many years).Triage time: 13:47 01/30/2021. Acuity: LEVEL 3.Chief Complaint: (bed bugs).14:07 01/30/21.No fever, weakness, cough, difficulty breathing or skin rash. 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 SEPSIS SCREEN NEGATIVE. [...] Wolf RN. 2 Clinical Report - Nurses [facility] Emergency Department [address] [place] [address] Phone #: ext- [phone] 01/30/2021 13:49 Patient: ENID WANG Sex: M : 1965 Age: 55y History [...] 14:01/30/21. Identification band on patient. To room. --14:01/30/21 Héctor Wolf RN Allergy band on patient. --14:14 01/30/21 Héctor Wolf RN.PHYSICAL ASSESSMENTTo room via stretcher.GENERAL [...] Wolf RN. 3 Clinical Report - Nurses [facility] Emergency Department [address] [place] [address] Phone #: ext- [phone] 01/30/2021 13:49 Patient: ENID WANG Sex: M : 1965 Age: 55yNURSING PROGRESS NOTES14:01/30/21. Cardiac rhythm: normal sinus rhythm; (5706). media monitor, NIBP monitor and pulseoximeter placed on patient; media monitor- Lead II; monitor alarms on; monitor [...] initiated. Mask, gowns and gloves in use. (3820). --14:14 01/30/21 Héctor Wolf RN Checked patient name and birthdate: patient confirmed. Blood samples drawn by tech. (3044). --14:42 01/30/21 Héctor Wolf RN 14:59 01/30/21. BP: 139/82. MAP: 101. HR: 85. RR: 12. O2 saturation: 99%. --14:59 01/30/21 [facility] Tech1 ( 1500 lunch tray offered). --15:04 [...] of critical value (Channing). --16:00 01/30/21 Bayron Evans, RShweta 16:03 01/30/21. BP: 136/76. MAP: 96. HR: 99. RR: 21. O2 saturation: 100%. --16:03 01/30/21 [facility] 15:23 01/30/21. Critical value relayed by Amelia in the Lab (15:23 01/30/2021). Critical value received by Tram Lawson RN (15:23 01/30/2021). Hgb: 6.4. Critical value read back. Verified lab result and patient ID. Charge nurse and PA notifed of critical value. Orders were received. --16:09 01/30/21 Tram Lawson, R.NCuong 16:15 01/30/2021 Started bag #1 1000 mL [...] RR: 19. O2 saturation: 99%. --16:59 01/30/21 [facility] Tech1 Portable chest x-ray completed. Shown to the PA (1780). Patient transported to CT by wheelchair with 4 Clinical Report - Nurses [facility] Emergency Department [address] [place] [address] Phone #: ext- [phone] 01/30/2021 13:49 Patient: ENID WANG Sex: M : 1965 Age: 55ymask and resident physician in radiology. (9130). --17:22 01/30/21 DANIELA Burrellatient ID band checked for patient name and birthdate: patient confirmed. COVID-19 specimen obtainedby RN via nasopharyngeal swab. Labeled in the presence of the patient and sent to lab (9521). --17:353 Héctor Wolf RN17:35 01/30/2021 IV Fluids NS via [...] (Verbal orderper MIKAELA Ramos). --17:42 01/30/21 Héctor Wolf, RN Correction. --18:40 01/30/21 Héctor Wolf RNPatient returned from CT by wheelchair with mask and resident physician in radiology. (3318). --17:42 01/30/21 SAROJ Eden17:59 01/30/21. BP: 128/105. MAP: 112. HR: 109. RR: 16. O2 saturation: 100%. --17:59 01/30/21 Nancy Neil [id number] value relayed by raissa. Critical value received [...] O2 saturation: 100%. --19:09 01/30/21 Nancy Reddy Zvrn432:44 01/30/21. BP: 133/73. MAP: 93. HR: 106. RR: 21. O2 saturation: 97%. --19:44 01/30/21 [facility] 5 Clinical Report - Nurses [facility] Emergency Department [address] [place] [address] Phone #: ext- [phone] 01/30/2021 13:49 Patient: ENID WANG Sex: M : 1965 [facility]: 55[facility] Dcxc614:56 01/30/21. BP: 128/71. MAP: 90. HR: 102. RR: 22. O2 saturation: 98%. --19:57 01/30/21 Nancy Reddy, [id number] of patient in place. The patient is resting quietly and has had no adverse reaction. ( Patientstated to this tag writer that "[facility] Provider made aware.).RESPIRATORY: No respiratory distress. Breath [...] MTP initiated (18:30 01/30/2021): blood bank notified. property technician to ED. Blood arrived. ID bandchecked. Blood product verified to order and patient's blood band by 2 staff members. Blood bank # [id number]. Blood type O pos. BLOOD PRODUCT STARTED: #1 PRBC via IV pump. See 6 Clinical Report - Nurses [facility] Emergency Department [address] [place] [address] Phone #: ext- [phone] 01/30/2021 13:49 Patient: ENID WANG Sex: M [...] rce(s) Supporting Document(s) ID Date Data Source [id number] 01/30/2021 01:50:00 PM EDT [facility] 1 Clinical Report - Physicians/Mid Levels [facility] Emergency Department [address] [place] [address] Phone #: ext- [phone] 01/30/2021 13:49 Patient: ENID WANG Sex: M [...] Illness. 2 Clinical Report - Physicians/Mid Levels [facility] Emergency Department [address] [place] [address] Phone #: ext- [phone] 01/30/2021 13:49 Patient: ENID WANG Sex: M [...] and 3 Clinical Report - Physicians/Mid Levels [facility] Emergency Department [address] [place] [address] Phone #: ext- [phone] 01/30/2021 13:49 [id number] Sex: M : 1965 Age: 55y excoriated [...] RE-ENTER NEGATIVE \\UNDo\\DONOR INFORMATION\\UNDx\\ UNIT NUMBER _ARC# 01/30/21.2111.SONYA.[id number] EXPIRATION DATE _02-13-21__ 01/30/21.2111.SONYA.{ ABO/RH O [...] PROCEDURAL CONTROL VALID KIT LOT # _[id number] 01/30/21.1734.DW . KIT EXP DATE _59-75-98 4 Clinical Report - Physicians/Mid Levels [facility] Emergency Department [address] [place] [address] Phone #: ext- [phone] 01/30/2021 13:49 Patient: ENID WANG Sex: M : 1965 Age: 55y03/.1734.DW . NORMAL RANGE IS NOT DETECTEDNEGATIVE RESULTS SHOULD BE TREATEDAS PRESUMPTIVE AND, IF INCONSISTENT WITHCLINICAL SIGNS AND SYMPTOMS OR NECESSARY FOR PATIENT MANAGEMENT, SHOULDBETESTED WITH DIFFERENT AUTHORIZED OR CLEARED MOLECULAR TESTS. NEGATIVE RESULTSDO NOT PRECLUDE [id number] AND SHOULD NOT BE USED THE SOLE BASISFOR PATIENT MANAGEMENT DECISIONS.Crossmatch (Blood Bank): (DEB: 01/30/2021 16:58) ( [facility] 01/30/2021 21:12) Final results Test Result Flag Units (Reference) CROSSMATCH \\MRHx\\\\16PI\\\\LM10\\\\TM00\\ \\BLDo\\\\UNDo\\COMPATABILITY TESTING:\\UNDx\\\\BLDx\\ \\UNDo\\PATIENTINFORMATION\\UNDx\\ ABO GROUP O RH TYPE POSITIVE AB SCREEN NEGATIVE { ABO/RH RE-ENTER O POSITIVE{ AB SCREEN RE- ENTER NEGATIVE \\UNDo\\DONORINFORMATION\\UNDx\\ UNIT NUMBER _ARC# 01/30/21.SONYA.[id number] EXPIRATION DATE _5-26-30__49/26/21.SONYA.{ ABO/RH O POS{ XMATCH RESULT COMPATIBLE{ [facility]: (DEB: 01/30/2021 16:46) ( [facility] 01/30/2021 16:58) CanceledUrinalysis: (DEB: 01/30/2021 19:00) ( [facility] 01/30/2021 19:23) Final results Test Result Flag [...] Not IndicateCOVID-19 CAH: (DEB: 01/30/2021 16:45) ( MsgRcvd 01/30/2021 17:06) CanceledFirst test?: YEmployed in healthcare?: NSymptomatic as defined by CDC?: NHospitalized?: YCT Abd PEL W/ IV Contrast Only: (DEB: 01/30/2021 16:39) ( MsgRcvd 01/30/2021 17:42) In ProgressCT ABDReason(s): elevated lactic acidTRANSPORTATION: WC IV? IV?(Yes) O2? Oxygen?(No) Ro 5 Clinical Report - Physicians/Mid Levels [facility] Emergency Department [address] [place] [address] Phone #: ext- [phone] 01/30/2021 13:49 Patient: ENID WANG Sex: M : 1965 Age: 55yChest Portable 1 View: (DEB: 01/30/2021 16:39) ( CtgRcvd 01/30/2021 18:27) In [facility] PORTABLEReason(s): elevated lactic acidTRANSPORTATION: P IV? O2? [...] VenousThrombosis, Pulmonary Embolus, Tissue heart valves, Acute VA Atrial Fibrillation, Valvular heart diseaseand recurrent Systemic Embolism. -International Normalized Ratio (INR): 2.5 - 3.5 forMechanical Prosthetic valve.Occult Blood Stool Diagnostic 1 slide: (DEB: 01/30/2021 14:30) ( [facility] 01/30/2021 15:05)Final results Test Result Flag Units (Reference) OCCULT BLOOD NEGATIVE (NORMAL: NEGAT OCCULT BLOOD REENTER NEGATIVE (NORMAL: NEGAT { HEMOCCULT LOT # [id number] ){ LOT EXP [id number] ){ PROCEDURAL CONTROL POS/NEG CYNDY ID)Lactic Acid: (DEB: 01/30/2021 14:40) ( [facility] 01/30/2021 15:59) Final results Test Result Flag Units (Reference) LACTIC ACID 4.1 HH MMOL/L (0.2 - 2.2) CALL/ READ BACK BAY[facility] IN ED BY: RIKI DATE/TIME CBC w Diff: (DEB: 01/30/2021 14:40) ( [facility] 01/30/2021 16:18) Final results Test Result Flag [...] 7.0) 6 Clinical Report - Physicians/Mid Levels [facility] Emergency Department [address] [place] [address] Phone #: ext- [phone] 01/30/2021 13:49 Patient: ENID WANG Sex: M [...] Male GFR Interprentation 20-49 yrs >60 mL/min Likhpz99-82 yrs >56 mL/min Normal 60-69 yrs >49 mL/min Normal 70-79yrs>42 mL/min Normal 80 and above >35 mL/min Normal Female GFRInterpretation 20-39 yrs >60 mL/min Normal 40-49 yrs >58 mL/minNormal 50-59 yrs >51 mL/min Normal 60-69 yrs >45 mL/min Aclbrx15-74 yrs >39 mL/min Normal 80 and above >32 mL/min NormalType and Screen: (DEB: 01/30/2021 14:40) ( MsgRcvd 01/30/2021 16:13) Final results 7 Clinical Report - Physicians/Mid Levels [facility] Emergency Department [address] [place] [address] Phone #: ext- [phone] 01/30/2021 13:49 Patient: ENID WANG MRN: 21 [...] and other co-morbidities. Awaiting call back from [facility] hospitalist service. 20:Jan 30 2021. No call back from [facility], attempting [facility], awaiting call back from transfer center for bed availability. 20:Jan 30 2021. No bed availability at [facility], attempting [facility]. Hospitalist at [facility] feels pt can be managed at [facility]. Re-engaged Dr Martínez here, who will [...] lactate, tachycardia). 8 Clinical Report - Physicians/Mid [facility] Emergency Department [address] [place] [address] Phone #: ext- [phone] 01/30/2021 13:49 Patient: ENID WANG Sex: M : 1965 Age: 55y(Electronically signed by MIKAELA Conklin 01/30/2021 21:49) Name Value Range Interpretation Code Description Data Daisy rce(s) Supporting Document(s) ID Date Data Source [id number] 01/30/2021 11:24:44 PM EDT [facility] Name Value Range Interpretation Code Description Data Daisy rce(s) Supporting Document(s) Progress Note [facility] [id number] [facility] [file] [id number] ID Date Data Source [id number] 01/30/2021 09:12:00 PM EDT [facility] Name Value Range Interpretation Code Description Data Daisy rce(s) Supporting Document(s) [facility] \\MRHx\\\\16PI\\\\LM10\\\\TM00\\ \\BLDo\\\\UN Do\\COMPATABILITY TESTING:\\UNDx\\\\BLDx\\ \\UNDo\\PATIENT INFORMATION\\UNDx\\ ABO group [Type] in Blood O [facility] Rh [Type] in Blood POSITIVE [facility] AB SCREEN NEGATIVE [facility] { ABO/RH RE-ENTER O POSITIVE{ AB SCREEN RE-ENTER NEGATIVE \\UNDo\\DONOR INFORMATION\\UNDx\\ UNIT NUMBER _ARC# .SONYA.[id number] EXPIRATION DATE _02-13-21__ 01/30/21.SONYA.{ ABO/RH O POS{ XMATCH RESULT COMPATIBLE{ COMPONENT [facility] ID Date Data Source [id number] 02/04/2021 11:02:00 AM EDT [facility] Value Range Interpretation Code Description Data Daisy rce(s) Supporting Document(s) CULTURE BLOOD [facility] _CULTURE BLOOD_ TEST PERFORM ED AT [address] [address] CLIA# [id number] SEE SCANNED REPORT{ PRELIM ID Date Data Source [id number] 02/04/2021 11:02:00 AM EDT [facility] Value Range Interpretation Code Description Data Daisy rce(s) Supporting Document(s) CULTURE BLOOD [facility] _CULTURE BLOOD_ TEST PERFORM ED AT [address] [address] CLIA# [id number] SEE SCANNED REPORT{ PRELIM ID Date Data Source [id number] 01/30/2021 07:22:00 PM EDT [facility] Value Range Interpretation Code Description Data Daisy rce(s) Supporting Document(s) URINALYSIS [facility]isa URINALYSIS SOURCE R [facility] COLOR yellow NORMAL: Yellow [facility] CLARITY clear NORMAL: Clear [facility] spital Specific gravity of Urine by Test strip 1.010 1.001 - 1.030 [facility] pH 5 5 - 9 [facility] Glucose [Mass/volume] in Urine by Test strip NORM [facility]AL[facility] Bil[facility].total [Presence] in Urine by Test strip NEG NORMAL: Negative [facility] Ketones [Presence] in Urine by Test strip NEG NORMAL: Negative [facility] Protein [Mass/volume] in Urine by Test strip NEG NORMAL: Negat [facility] Nitrite [Presence] in Urine by Test strip NEG NORMAL: Negative [facility] BLOOD NEG NORMAL: Negative [facility] Leukocyte esterase [Presence] in Urine by Test strip NEG ROCIO L: Negative [facility] Urobilinogen [Mass/volume] in Urine by Test strip NOR less rafael n 1.0 mg/dL [facility] MICROSCOPIC Not Indicate [facility] ID Date Data Source [id number] 01/30/2021 06:39:00 PM EDT [facility] Name Value Range Interpretation Code Description Data Daisy rce(s) Supporting Document(s) Lactate [Moles/volume] in Serum or Plasma 5.1 MMOL/L 0.2 - 2.2 [facility] VERIFIED BY REPEAT CALL/ READ BACK CALLED TO [facility] BY: SONYA [facility] DATE/TIME 01-30-[address] [facility] sp[facility] ID Date Data Source [id number] 01/30/2021 05:00:00 PM EDT [facility] Name Value Range Interpretation Code Description Data Daisy rce(s) Supporting Document(s) COVID19 Case rprt NOT DETECTED [facility] This lab was ordered by [facility] and reported by [facility]. ID Date Data Source [id number] 01/30/2021 05:34:00 PM EDT [facility] NOT DETECTEDNOT DETECTED{ PROC EDURAL CONTROL VALID KIT LOT # _[id number] 01/30/21.DW . KIT EXP DATE _81-42-29 01/30/21.DW . NORMAL RANGE IS NOT DETECTEDNEGATIVE RESULTS SHOULD BE TREATED PRESUMPTIVE AND, IF INCONSISTENT WITHCLINICAL SIGNS AND SYMPTOMS OR NECESSARY FOR PATIENT MANAGEMENT, SHOULD BETESTED WITH DIFFERENT AUTHORIZED OR CLEARED MOLECULAR TESTS. NEGATIVE RESULTSDO NOT PRECLUDE SARS-CoV-2 INFECTION AND SHOULD NOT BE USED THE SOLE BASISFOR PATIENT MANAGEMENT DECISIONS. Name Value Range Interpretation Code Description Data [facility] Supporting Document(s) ID Date Data Source [id number] 01/30/2021 09:10:00 PM EDT [facility] Name Value Range Interpretation Code Description Data [facility](s) Supporting Document(s) CROSSMATCH [facility] \\MRHx\\\\16PI\\\\LM10\\\\TM00\\ \\BLDo\\\\UN Do\\COMPATABILITY TESTING:\\UNDx\\\\BLDx\\ \\UNDo\\PATIENT INFORMATION\\UNDx\\ ABO group [Type] in Blood O [facility] Rh [Type] in Blood POSITIVE [facility] AB SCREEN NEGATIVE [facility] { ABO/RH RE-ENTER O POSITIVE{ AB SCREEN RE-ENTER NEGATIVE \\UNDo\\DONOR INFORMATION\\UNDx\\ UNIT NUMBER _ARC# .SONYA.[id number] EXPIRATION DATE _02-13-21__ 01/30/21.SONYA.{ ABO/RH O POS{ XMATCH RESULT COMPATIBLE{ COMPONENT [facility] ID Date Data Source [id number] 01/30/2021 03:39:00 PM EDT [facility] Name Value Range Interpretation Code Description Data [facility](s) Supporting Document(s) Prothrombin time (PT) 13.4 SECONDS 11.0 - 15.5 [facility] INR in Platelet poor plasma by Coagulation assay 0.97 0.93 - 1. 23 [facility] aPTT in Blood by Coagulation assay 30.9 SECONDS 24.8 - 36.7 [facility] \\BLDo\\INR INTERPRETATION\\BLDx\\ Therapeutic range for Coumadin and related oral anticoagulants. - International Normalized Ratio (INR): 2.0 - 3.0 for Venous Thrombosis, Pulmonary Embolus, Tissue heart valves, Acute VA Atrial Fibrillation, Valvular heart disease and recurrent Systemic Embolism. - International Normalized Ratio (INR): 2.5 - 3.5 for Mechanical Prosthetic valve. ID Date Data Source [id number] 01/30/2021 04:18:00 PM EDT [facility] Name Value Range Interpretation Code Description Data Daisy rce(s) Supporting Document(s) CBC W/AUTOMATED DIFF [facility] COMPLETE BLOOD COUNT Leukocytes [#/volume] in Blood by Automated count 6.2 10^3/uL 4.2 - 1 1.0 [facility] Erythrocytes [#/volume] in Blood by Automated count 1.98 10^6/uL 4. 50 - 6.30 L [facility] Hemoglobin [Mass/volume] in Blood 6.4 g/dL 14.0 - 16.0 LL [facility] CALL/ READ BACK GRETA IN ED [facility] BY: RIKI [facility] DATE/TIME [facility] ital Hematocrit [Volume Fraction] of Blood by Automated count 21.2 % 4 1.0 - 51.0 L [facility] Erythrocyte mean corpuscular volume [Entitic volume] b y Automated count 107.1 fL 80.0 - 94.0 H [facility] Erythrocyte mean corpuscular hemoglobin [Entitic mass] by Automated count 32.3 pg 27.0 - 34.0 [facility] Erythrocyte mean corpuscular hemoglobin concentration [Mass/volume] by Automated count 30.2 g/dL 31.0 - 36.0 L [facility] Erythrocyte distribution width [Ratio] by Automated count 19.0 % 11.5 - 14.8 H [facility] Platelets [#/volume] in Blood by Automated count 369 10^3/uL 150 - 45 0 [facility] Platelet mean volume [Entitic volume] in Blood by Automated count 9.9 fL 7.4 - 10.4 [facility] Neutrophils/100 leukocytes in Blood by Automated count 53.0 % 37. 0 - 80.0 [facility] Lymphocytes/100 leukocytes in Blood by Manual count 20.7 % 25.0 - 40.0 L [facility] Monocytes/100 leukocytes in Blood by Automated count 17.5 % 3.0 - 8.0 H [facility] Eosinophils/100 leukocytes in Blood by Automated count 6.9 % 0.0 - 7.0 [facility] 1.3 %IG 0.6 % 0.0 - 0.0 H [facility] %NRBC 1.6 % 0.0 - 0.0 H [facility] Neutrophils [#/volume] in Blood by Automated count 3.29 10^3/uL 2.00 - 6.90 [facility] Lymphocytes [#/volume] in Blood by Automated count 1.29 10^3/uL 0.60 - 3.40 [facility] Monocytes [#/volume] in Blood by Automated count 1.09 10^3/uL 0.00 - 0.90 H [facility] Eosinophils [#/volume] in Blood by Automated count 0.43 10^3/uL 0.00 - 0.70 [facility] Basophils [#/volume] in Blood by Automated count 0.08 10^3/uL 0.00 - 0.20 [facility] #IG 0.04 10^3/uL 0.00 - 0.10 [facility] #NRBC 0.10 10^3/uL 0.00 - 0.00 H [facility] MANUAL DIFF SEE BELOW [facility] ital Segmented neutrophils/100 leukocytes in Blood by Manual count 58 % 37 - 80 [facility] BAND 0 % 0 - 5 [facility] %LYMPH 19 % 25 - 40 L [facility] %MONO 18 % 3 - 8 [facility] %EOS 5 % 0 - 7 [facility] 0 Metamyelocytes/100 leukocytes in Blood by Manual count 0 % [facility] Myelocytes/100 leukocytes in Blood by Manual count 0 % [facility] Promyelocytes/100 leukocytes in Blood by Manual count 0 % [facility] Blasts/100 leukocytes in Blood by Manual count 0 % [facility] ANSELMO LYM 0 % [facility] Nucleated erythrocytes/100 erythrocytes in Blood by Manual count 2 % [facility] RBC MORPH NOT INDICATED [facility] spital ID Date Data Source [id number] 01/30/2021 04:10:00 PM EDT [facility] Name Value Range Interpretation Code Description Data Daisy rce(s) Supporting Document(s) ABO group [Type] in Blood O [facility] Rh [Type] in Blood POSITIVE [facility] AB SCREEN NEGATIVE NORMAL: NEGATIVE [facility] { ABO/RH REENTER O POSITIVE{ AB SCREEN RE-ENTER NEGATIVE ID Date Data Source [id number] 01/30/2021 03:58:00 PM EDT [facility] Name Value Range Interpretation Code Description Data Daisy rce(s) Supporting Document(s) Lactate [Moles/volume] in Serum or Plasma 4.1 MMOL/L 0.2 - 2.2 [facility] CALL/ READ BACK B[facility] IN [facility] BY: RIKI [facility] DATE/TIME [facility] ital ID Date Data Source [id number] 01/30/2021 03:53:00 PM EDT [facility] Name Value Range Interpretation Code Description Data Daisy rce(s) Supporting Document(s) COMPREHENSIVE METABOLIC PANEL [facility] COMPREHENSIVE METABOLIC PANEL Sodium [Moles/volume] in Serum or Plasma 136 mEq/L 134 - 153 [facility] Potassium [Moles/volume] in Serum or Plasma 4.2 mEq/L 3.6 - 5.0 [facility] Chloride [Moles/volume] in Serum or Plasma 103 mEq/L 98 - 107 [facility] Carbon dioxide, total [Moles/volume] in Serum or Plasma 20 MEQ/L 22 - 30 L [facility] Glucose [Mass/volume] in Serum or Plasma 65 MG/DL 70 - 99 L [facility] BUN 8 MG/DL 7 - 21 [facility] al Creatinine [Mass/volume] in Serum or Plasma 0.7 MG/DL 0.7 - 1.5 [facility] BUN/CREAT 11 8 - 27 [facility] Protein [Mass/volume] in Serum or Plasma 5.5 G/DL 6.3 - 8.2 L [facility] Albumin [Mass/volume] in Serum or Plasma 3.4 G/DL 3.9 - 5.0 L [facility] Globulin [Mass/volume] in Serum by calculation 2.1 GM/DL 2.4 - 3.2 L [facility] A/G RATIO 1.6 0.8 - 2.0 [facility] Calcium [Mass/volume] in Serum or Plasma 8.6 MG/DL 8.4 - 10.2 [facility] Bilirubin.total [Mass/volume] in Serum or Plasma <0.7 MG/DL 0.2 - 1.3 [facility] Alkaline phosphatase [Enzymatic activity/volume] in Serum or Plasma 74 U/L 38 - 126 [facility] Aspartate aminotransferase [Enzymatic activity/volume] in Serum or Plasma 23 U/L 5 - 40 [facility] Alanine aminotransferase [Enzymatic activity/volume] in Seru m or Plasma 19 U/L 7 - 56 [facility] Anion gap 3 in Serum or Plasma 13.0 mmol/L 8.0 - 16.0 [facility] AGE 55 yrs [facility] al NON-AA GFR >60 mL/min [facility] ital AFR AMER GFR >60 mL/min [facility] Ho spital Male GFR In terprentation 20-49 [...] >32 mL/min Normal ID Date Data Source [id number] 01/30/2021 03:05:00 PM EDT [facility] Name Value Range Interpretation Code Description Data Daisy rce(s) Supporting Document(s) OCCULT BLOOD NEGATIVE NORMAL: NEGATIVE [facility] OCCULT BLOOD REENTER NEGATIVE NORMAL: NEGATIVE [facility] { HEMOCCULT LOT # [id number] ){ LOT EXP DATE 04-06-22 ){ PROCEDURAL CONTROL POS/NEG VALID ) ID Date Data Source [id number] 01/05/2021 10:08:00 [place] [address] RESPIRATORY CARE REPORT ==== ---------NAME------- NUMBER SEX AGE ADMIT DISC. XRAY# F/C TYPEKATHLEEN Le [id number] M 55 01/04/21 01/04/21239869 X6B E/R DATE OF : 1965 M/R# [id number] #: [id number] TR-05 LOCATION: EMERGENCY DEPT EKG 44740 COMPLE TE:01/05/21 08:07 [place] [id number] PHYSICIAN: DEEPALI BYNUM NOR Name Value Range Interpretation Code Description Data Daisy rce(s) Supporting Document(s) ID Date Data Source [id number] 01/04/2021 01:36:00 PM [facility] 1 OrderSheet [facility] Emergency Department [address] [place] [address] Phone #: ext- [phone] 01/04/2021 13:35 Patient: ENID WANG Sex: M : 1965 Age: 55yWEIGHT:54.1 kg (M) HEIGHT:62 inches (S) BMI:21.8ALLERGIES: Abacavir, Bactrim, Bee stings, Penicillins, Sulfa AntibioticsCHIEF COMPLAINT: abnormal lab, instructed to come to EDDIAGNOSIS: AnemiaLAB ORDERSOrder Description Priority Entered Acknowledged Initi aledCBC w Diff STAT 15:07 01/04/2021 15:11 Rocio Mcclellan MD; Chris RNCMP STAT 15:07 01/04/2021 15:11 Rocio Mcclellan MD; Chris RNPT/INR STAT 15:07 01/04/2021 15:11 Rocio Mcclellan MD; Chris RNPT/PTT STAT 15:07 01/04/2021 15:11 Rocio Mcclellan MD; Chris RNLDH STAT 15:07 01/04/2021 15:11 Rocio Mcclellan MD; Chris RNLactic Acid STAT 15:07 01/04/2021 15:11 Rocio Mcclellan MD; Chris RNTroponin-T STAT 16:29 01/04/2021 16:39 Rocio Mcclellan MD; Chris RNMagnesium STAT 16:29 01/04/2021 16:39 Rocio Mcclellan MD; Chris KYLEOccult Blood Stool 17:06 01/04/2021 17:06 PeterDiagnostic 1 slide Abdirahman Perez RN; Chris RN Verbal order per ( Verbal order read back and verified ); Rocio Bynum MDDIAGNOSTIC STUDY ORDERSOrder Description Priority Entered Acknowledged InitialedMEDICATION/IV/DRIP/FLUID ORDERSOrder Description Priority Entered Acknowledged InitialedIV NS 1000 mL 16:29 01/04/2021 16:47 PeterBolus : Bolus 1000 Rocio Bynum MD; Chris KYLE 2 OrderSheet [facility] Emergency Department [address] [place] [address] Phone #: ext- [phone] 01/04/2021 13:35 Patient: ENID WANG Sex: M : 1965 Age: 55ymL (X1)GENERAL ORDERSOrder Description Priority Entered Acknowledged InitialedEKG 15:07 01/04/2021 15:34 Rocio Mcclellan MD; Chris RN[Electronically signed by Abdirahman Perez RN (18:36 01/04/2021)][Electronically signed by Rocio Bynum MD (20:47 01/04/2021)][Electronically locked by Abdirahman Perez RN (18:36 01/04/2021)] Name Value Range Interpretation Code Description Data Daisy rce(s) Supporting Document(s) ID Date Data Source [id number] 01/04/2021 01:36:00 PM EST [facility] 1 Medication Reconciliation Report [facility] Emergency Department [address] [place] [address] Phone #: ext- [phone] 01/04/2021 13:35 Patient: [...] Dispense 30 tablet. Refills:0. Substitution permitted.Pharmacy - [facility] - [address] [facility] ; [place], [place] [id number]. . -- Rocio Bynum MD Name Value Range Interpretation Code Description Data Daisy rce(s) Supporting Document(s) ID Date Data Source [id number] 01/04/2021 01:36:00 PM [facility] 1 Medication Administration Record [facility] Emergency Department [address] [place] [address] Phone #: ext- [phone] 01/04/2021 13:35 Patient: ENID WANG Sex: M : 1965 Age: 55yWeight: 54.1 kgHeight/Length: 62 inBMI: 21.8ALLERGIES: Abacavir, Bactrim, Bee stings, Penicillins, Sulfa Antibiotics Date/Time Medication Administered Medication OrderedStart NS [IV] IV NS 1000 mL Bolus : Bolus [id number] 01/04/2021 Dose: IV Fluids mL (X1)Abdirahman Perez RN Rate: 1000 mL/hr over 1 hour(s)---- Dispensed: 1000 mL bagStop Site: #1 right hand17:58 1Pney Perez RN Name Value Range Interpretation Code Description Data Daisy rce(s) Supporting Document(s) ID Date Data Source [id number] 01/04/2021 01:36:00 PM [facility] 1 General Instructions [facility] Emergency Department [address] [place] [address] Phone #: ext- [phone] 01/04/2021 13:35 Patient: ENID WANG Sex: M : 1965 Age: 55yIron deficiency anemia.Poor Hygeine.INSTRUCTIONSNo strenuous activity.(Please call [facility] Dept at [phone] for assistance with your living condition.I sent a prescription to your pharmacy for iron. please take as instructed, once daily. Y mauricio will needrepeat blood work in 2 weeks. [...] Dispense 30 tablet. Refills:0. Substitution permitted.Pharmacy - [facility] - [address] [place], [place] [id number]. .Follow-up:Follow up with your doctor Tuesday even if well. Call for an appointment. Reason for referral: evaluation.Summary of care provided to patient via paper.Understanding of the discharge instructions verbalized by patient. ADDITIONAL INFORMATION 2 General Instructions [facility] Emergency Department [address] [place] [address] Phone #: ext- [phone] 01/04/2021 13:35 Patient: ENID WANG Sex: M [...] own healthcare provider to get the results.Call [phone] or get immediate medical care if any of the following occur: Shortness of breath or chest pain Dizziness or fainting gets worse Vomiting blood or passing red or black-colored stool 3 General Instructions [facility] Emergency Department [address] [place] [address] Phone #: ext- [phone] 01/04/2021 13:35 Patient: ENID WANG Sex: M : 1965 Age: 55y [id number] [employer]. [address] [place] [address]. All rights reserved. This information is not intended as asubstitute for professional medical care. Always follow your healthcare professional's instructions. You have been given the following additional information: Anemia, Type Not Specified (Adult) No strenuous activity.(Electronically signed by Rocio Bynum MD 01/04/2021 20:47) Name Value Range Interpretation Code Description Data Daisy rce(s) Supporting Document(s) ID Date Data Source [id number] 01/04/2021 01:36:00 PM EST [facility] 1 Clinical Report - Nurses [facility] Emergency Department [address] [place] [address] Phone #: ext- [phone] 01/04/2021 13:35 Patient: ENID WANG Sex: M : 1965 Age: 55yTRIAGEArrived by private vehicle. Historian: patient.Triage time: 13:37 01/04/2021. Acuity: LEVEL 3.Chief Complaint: ABNORMAL LAB (suspected). He was instructed to come to the ED for evaluation.13:37 01/04/21. Alert. 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 2 Clinical Report - Nurses [facility] Emergency Department [address] [place] [address] Phone #: ext- [phone] 01/04/2021 13:35 Patient: ENID WANG Sex: M : 1965 Age: 55yNephrolithiasis.Alcoholism.COPD - Chronic Obstructive Pulmonary Disease.Peptic Ulcer Disease.HIV Illness.Hypertension. --13:41 01/04/21 Calista Robins RN.ADDITIONAL SURGERIES:no known surgeries.Eyowavh17:37 01/04/21.PAST MEDICAL HX: Immunizations: status is unknown.SOCIAL [...] Robins RN.Interventions 3 Clinical Report - Nurses [facility] Emergency Department [address] [place] [address] Phone #: ext- [phone] 01/04/2021 13:35 Patient: [...] bed on. Patient ready for evaluation- ED physicianand PA notified. --13:51 01/04/21 Calista Robins RN 14:04 [...] 16. O2 saturation: 98%. Pain level now: 510. --15:37 01/04/21 Abdirahman Perez RN ( pt [...] O2 satu ration: 98%. Pain level now: 5/10. --15:46 01/04/21 Abdirahman Perez RN 4 Clinical Report - Nurses [facility] Emergency Department [address] [place] [address] Phone #: ext- [phone] 01/04/2021 13:35 Patient: ENID WANG Sex: M [...] --16:50 01/04/21 Abdirahman Perez RN ( This tag writer and MD Bynum spoke to pt sister Ashley and Pt father at length at 1700 about pt care and referral to [facility] and follow up. Attempted to call [facility] rehabilitation aide/scheduler to find out what pt would need [...] 01/04/21 Abdirahman Perez RN ( [facility] and stated to fax cover sheet to [phone] with note stating looking for home health care services, this was faxed at [phone], Pt sister Ashley made aware of this at [phone]). --18:04 01/04/21 Jackelyn Chung R.N. 18:11 01/04/2021 Site #1 removed upon discharge. Catheter intact. Manual pressure and bandage applied. --18:11 01/04/21 Abdirahman Perez RN.DISPOSITION / DISCHARGE Condition at departure: improved and stable. Discharge instructions provided and reviewed with the patient. Reviewed medication(s) side effects, precautions, dosing and course information. Prescription(s) sent electronically to pharmacy. Patient verbalized understanding. Written instructions provided in Hong [place]er. The patient was discharged by the physician. [...] Perez RN 5 Clinical Report - Nurses [facility] Emergency Department [address] [place] [address] Phone #: ext- [phone] 01/04/2021 13:35 Patient: ENID WANG Sex: M : 1965 Age: 55y Name Value Range Interpretation Code Description Data Daisy rce(s) Supporting Document(s) ID Date Data Source [id number] 01/04/2021 01:36:00 PM EST [facility] 1 Clinical Report - Physicians/Mid Levels [facility] Emergency Department [address] [place] [address] Phone #: ext- [phone] 01/04/2021 13:35 Patient: [...] daily. 2 Clinical Report - Physicians/Mid Levels [facility] Emergency Department [address] [place] [address] Phone #: ext- [phone] 01/04/2021 13:35 Patient: ENID WANG Sex: M [...] Diagnostic 1 slide: (DEB: 01/04/2021 16:57) ( [facility] 01/04/2021 17:14) Final results Test Result Flag Units (Reference) 3 Clinical Report - Physicians/Mid [facility] Emergency Department [address] [place] [address] Phone #: ext- [phone] 01/04/2021 13:35 Patient: ENID WANG Sex: M : 1965 Age: 55y OCCULT BLOOD NEGATIVE (NORMAL: NEGAT OCCULT BLOOD REENTER NEGATIVE (NORMAL: NEGAT { HEMOCCULT LOT # [id number] ){ LOT EXP [id number] ){ PROCEDURAL CONTROL POS/NEG VALID)Troponin-T: (DEB: 01/04/2021 15:40) ( [facility] 01/04/2021 16:53) Final results Test Result Flag Units (Reference) TROPONIN T <0.01 NG/ML (0.00 - 0.10) TROPONIN T0.1 ng/ml Recommended as the clinical threshold value forTroponin T.Magnesium: (DEB: 01/04/2021 15:40) ( CtgRcvd 01/04/2021 16:44) Final results Test Result Flag Units (Reference) MAGNESIUM 1.8 MG/DL (1.7 - 2.2)CBC w Diff: (DEB: 01/04/2021 15:40) ( MsgRcvd 01/04/2021 15:56) Final results Test Result Flag [...] 30) 4 Clinical Report - Physicians/Mid Levels [facility] Emerg ency Department [address] [place] [address] Phone #: ext- [phone] 01/04/2021 13:35 Patient: [...] mL/min Normal PT/INR: (DEB: 01/04/2021 15:07) ( [facility] 01/04/2021 15:49) Canceled PT/PTT: (DEB: 01/04/2021 15:40) ( [facility] 01/04/2021 16:03) Final results Test Result Flag Units (Reference) PROTIME 12.3 SECONDS (11.0 - 15.5) INR 0.87 L (0.93 - 1.23) PTT 30.4 SECONDS (24.8 - 36.7) \\BLDo\\INR INTERPRETATION\\BLDx\\ Therapeutic range for Coumadin and related oral anticoagulants. -International Normalized Ratio (INR): 2.0 - 3.0 for Venous Thrombosis, Pulmonary Embolus, Tissue heart valves, Acute VA Atrial Fibrillation, Valvular heart disease and recurrent Systemic Embolism. -International Normalized Ratio (INR): 2.5 - 3.5 for Mechanical Prosthetic valve. LDH: (DEB: 01/04/2021 15:40) ( [facility] 01/04/2021 16:16) Final results Test Result Flag Units (Reference) LDH 176 U/L (135 - 225) Lactic Acid: (DEB: 01/04/2021 15:40) ( MsgRcvd 01/04/2021 16:02) Final results Test Result Flag [...] state 5 Clinical Report - Physicians/Mid Levels [facility] Emergency Department [address] [place] [address] Phone #: ext- [phone] 01/04/2021 13:35 Patient: ENID WANG Sex: M : 1965 Age: 55y that pt does not take care of himself and this has been an ongoing issue for quite some time. I informed family of the plan. Charge nurse called the [facility]. We will fax pt's information and they will follow up. family is trying to get pt deemed incompetent so they can make decisions. I sent rx to pharmacy for iron pills. Pt instructed to return if worse or any new symptoms. Patient/family counseled. Disposition: Discharged. Condition: good and stable.CLINICAL IMPRESSION Iron deficiency anemia. Poor Hygeine.INSTRUCTIONS No strenuous activity. (Please call [facility] at [phone] for assistance with your living condition. I [...] tablet. Refills: 0. Substitution permitted. Pharmacy - [facility] - [address] [place], [place] [phone]. . Follow-up: Follow up with your doctor Tuesday even if well. Call for an appointment. Reason for referral: evaluation. 6 Clinical Report - Physicians/Mid Levels [facility] Emergency Department [address] [place] [address] Phone #: ext- [phone] 01/04/2021 13:35 Patient: ENID WANG Sex: M : 1965 Age: 55y Summary of care provided to patient via paper. Understanding of the discharge instructions verbalized by patient.(Electronically signed by Rocio Bynum MD 01/04/2021 20:47) Name Value Range Interpretation Code Description [facility] Supporting Document(s) ID Date Data Source [id number] 01/04/2021 05:13:00 PM [facility] Name Value Range Interpretation Code Description Data [facility] Supporting Document(s) OCCULT BLOOD NEGATIVE NORMAL: NEGATIVE [facility] OCCULT BLOOD REENTER NEGATIVE NORMAL: NEGATIVE [facility] { HEMOCCULT LOT # [id number] ){ LOT EXP DATE 04-06-21 ){ PROCEDURAL CONTROL POS/NEG VALID ) ID Date Data Source [id number] 01/04/2021 04:53:00 PM [facility] Name Value Range Interpretation Code Description Data [facility] rce(s) Supporting Document(s) TROPONIN T <0.01 NG/ML 0.00 - 0.10 [facility] ospital TROPONIN T0.1 ng/ml Recommended as the c linical threshold value forTroponin T. ID Date Data Source [id number] 01/04/2021 04:44:00 PM EST [facility] Name Value Range Interpretation Code Description Data Daisy rce(s) Supporting Document(s) Magnesium [Mass/volume] in Serum or Plasma 1.8 MG/DL 1.7 - 2.2 [facility] ID Date Data Source [id number] 01/04/2021 04:19:00 PM EST [facility] Name Value Range Interpretation Code Description Data Daisy rce(s) Supporting Document(s) COMPREHENSIVE METABOLIC PANEL [facility] COMPREHENSIVE METABOLIC PANEL Sodium [Moles/volume] in Serum or Plasma 136 mEq/L 134 - 153 [facility] Potassium [Moles/volume] in Serum or Plasma 5.0 mEq/L 3.6 - 5.0 [facility] Chloride [Moles/volume] in Serum or Plasma 104 mEq/L 98 - 107 [facility] Carbon dioxide, total [Moles/volume] in Serum or Plasma 22 MEQ/L 22 - 30 [facility] Glucose [Mass/volume] in Serum or Plasma 81 MG/DL 70 - 99 [facility] BUN 8 MG/DL 7 - 21 [facility] Creatinine [Mass/volume] in Serum or Plasma 0.7 MG/DL 0.7 - 1.5 [facility] BUN/CREAT 11 8 - 27 [facility] Protein [Mass/volume] in Serum or Plasma 6.0 G/DL 6.3 - 8.2 L [facility] Albumin [Mass/volume] in Serum or Plasma 3.3 G/DL 3.9 - 5.0 L [facility] Globulin [Mass/volume] in Serum by calculation 2.7 GM/DL 2.4 - 3.2 [facility] A/G RATIO 1.2 0.8 - 2.0 [facility] Calcium [Mass/volume] in Serum or Plasma 8.5 MG/DL 8.4 - 10.2 [facility] Bilirubin.total [Mass/volume] in Serum or Plasma <0.7 MG/DL 0.2 - 1.3 [facility] Alkaline phosphatase [Enzymatic activity/volume] in Serum or Plasma 87 U/L 38 - 126 [facility] Aspartate aminotransferase [Enzymatic activity/volume] in Serum or Plasma 39 U/L 5 - 40 [facility] Alanine aminotransferase [Enzymatic activity/volume] in Seru m or Plasma 21 U/L 7 - 56 [facility] Anion gap 3 in Serum or Plasma 10.0 mmol/L 8.0 - 16.0 [facility] AGE 55 yrs [facility] al NON-AA GFR >60 mL/min [facility] Hosp ital AFR AMER GFR >60 mL/min [facility] Ho spital Male GFR In terprentation 20-49 [...] >32 mL/min Normal ID Date Data Source [id number] 01/04/2021 04:16:00 PM [facility] Name Value Range Interpretation Code Description Data Daisy rce(s) Supporting Document(s) Lactate dehydrogenase [Enzymatic activity/volume] in Serum o r Plasma 176 U/L 135 - 225 [facility] ID Date Data Source [id number] 01/04/2021 04:02:00 PM [facility] Name Value Range Interpretation Code Description Data Daisy rce(s) Supporting Document(s) Prothrombin time (PT) 12.3 SECONDS 11.0 - 15.5 [facility] INR in Platelet poor plasma by Coagulation assay 0.87 0.93 - 1. 23 L [facility] aPTT in Blood by Coagulation assay 30.4 SECONDS 24.8 - 36.7 [facility] \\BLDo\\INR INTERPRETATION\\BLDx\\ Therapeutic range for Coumadin and related oral anticoagulants. - International Normalized Ratio (INR): 2.0 - 3.0 for Venous Thrombosis, Pulmonary Embolus, Tissue heart valves, Acute VA Atrial Fibrillation, Valvular heart disease and recurrent Systemic Embolism. - International Normalized Ratio (INR): 2.5 - 3.5 for Mechanical Prosthetic valve. ID Date Data Source [id number] 01/04/2021 04:02:00 PM [facility] Name Value Range Interpretation Code Description Data Daisy rce(s) Supporting Document(s) Lactate [Moles/volume] in Serum or Plasma 2.7 MMOL/L 0.2 - 2.2 H [facility] ID Date Data Source [id number] 01/04/2021 03:56:00 PM [facility] Name Value Range Interpretation Code Description Data Daisy rce(s) Supporting Document(s) CBC W/AUTOMATED DIFF [facility] COMPLETE BLOOD COUNT Leukocytes [#/volume] in Blood by Automated count 7.8 10^3/uL 4.2 - 1 1.0 [facility] Erythrocytes [#/volume] in Blood by Automated count 2.36 10^6/uL 4. 50 - 6.30 L [facility] Hemoglobin [Mass/volume] in Blood 7.6 g/dL 14.0 - 16.0 L [facility] Hematocrit [Volume Fraction] of Blood by Automated count 24.1 % 4 1.0 - 51.0 L [facility] Erythrocyte mean corpuscular volume [Entitic volume] b y Automated count 102.1 fL 80.0 - 94.0 H [facility] Erythrocyte mean corpuscular hemoglobin [Entitic mass] by Automated count 32.2 pg 27.0 - 34.0 [facility] Erythrocyte mean corpuscular hemoglobin concentration [Mass/volume] by Automated count 31.5 g/dL 31.0 - 36.0 [facility] Erythrocyte distribution width [Ratio] by Automated count 19.9 % 11.5 - 14.8 H [facility] Platelets [#/volume] in Blood by Automated count 315 10^3/uL 150 - 45 0 [facility] Platelet mean volume [Entitic volume] in Blood by Automated count 9.7 fL 7.4 - 10.4 [facility] Neutrophils/100 leukocytes in Blood by Automated count 66.0 % 37. 0 - 80.0 [facility] Lymphocytes/100 leukocytes in Blood by Manual count 16.4 % 25.0 - 40.0 L [facility] Monocytes/100 leukocytes in Blood by Automated count 12.6 % 3.0 - 8.0 H [facility] Eosinophils/100 leukocytes in Blood by Automated count 2.7 % 0.0 - 7.0 [facility] Basophils/100 leukocytes in Blood by Automated count 1.3 % 0.0 - 2.0 [facility] %IG 1.0 % 0.0 - 0.0 H [facility] Hospit al %NRBC 0.3 % 0.0 - 0.0 H [facility] al Neutrophils [#/volume] in Blood by Automated count 5.15 10^3/uL 2.00 - 6.90 [facility] Lymphocytes [#/volume] in Blood by Automated count 1.28 10^3/uL 0.60 - 3.40 [facility] Monocytes [#/volume] in Blood by Automated count 0.98 10^3/uL 0.00 - 0.90 H [facility] Eosinophils [#/volume] in Blood by Automated count 0.21 10^3/uL 0.00 - 0.70 [facility] Basophils [#/volume] in Blood by Automated count 0.10 10^3/uL 0.00 - 0.20 [facility] #IG 0.08 10^3/uL 0.00 - 0.10 [facility] ospital #NRBC 0.02 10^3/uL 0.00 - 0.00 H [facility] ospital MANUAL DIFF NOT INDICATED [facility] RBC MORPH NOT INDICATED [facility] Ho spital ID Date Data Source [id number] 01/01/2021 12:00:00 PM EST [facility] ([facility]) Name Value Range Interpretation Code Description Data Daisy rce(s) Supporting Document(s) ferritin 62 NG/mL 26-388 Ferritin [facility] ([facility]) ID Date Data Source [id number] 01/01/2021 12:00:00 PM EST [facility] ([facility]) Name Value Range Interpretation Code Description Data Daisy rce(s) Supporting Document(s) vitamin B12 level 426 pg/mL Vitamin B12 Level [facility] ([facility]) folate 8.1 NG/mL Folate [facility] ([facility]) ID Date Data Source [id number] 01/01/2021 12:00:00 PM EST [facility] ([facility]) Name Value Range Interpretation Code Description Data Daisy rce(s) Supporting Document(s) total iron binding capacity 338 ug/dL 250-450 Total Ir on Binding Capacity [facility] ([facility]) iron (fe) 24 ug/dL 65-175 Below low normal Iron (Fe) [facility] ( [facility]) percent saturation 7.1 % 19.7-50.0 Below low normal Percent Sat uration [facility] ([facility]) ID Date Data Source [id number] 01/01/2021 12:00:00 PM EST [place] ([facility]) Name Value Range Interpretation Code Description Data Daisy rce(s) Supporting Document(s) glucose, fasting 61 mg/dL 70-100 Below low normal Glucose, Fast ing [facility] ([facility]) blood urea nitrogen 8 mg/dL 7-18 Blood Urea Nitro gen [facility] ([facility]) creatinine for GFR 0.65 mg/dL 0.70-1.30 Below low normal Creatinine for GFR [place] ([facility]) glomerular filtration rate > 60.0 >56 Glomerula r Filtration Rate [facility] ([facility]) sodium level 134 mEq/L 136-145 Below low normal Sodium Level ATH NA ([facility]) potassium serum 5.1 mEq/L 3.5-5.1 Potassium Serum ATHE NA ([facility]) carbon dioxide level 26 mEq/L 21-32 Carbon Dioxide Level [facility] ([facility]) chloride level 101 mEq/L 98-107 Chloride Level [facility] ([facility]) anion gap 7 mEq/L 8-16 Below low normal Anion Gap [facility] ( [facility]) ALT/SGPT 31 U/L 12-78 ALT/SGPT [place] ([facility]) calcium level 8.3 mg/dL 8.5-10.1 Below low normal Calcium Level AT [facility]) AST/SGOT 51 U/L 7-37 Above high normal AST/SGOT [place] ([facility]) bilirubin,total < 0.1 0.2-1.0 Below low normal Bilirubin,tota l [place] ([facility]) total protein 6.3 gm/dL 6.4-8.2 Below low normal Total Protein AT [facility]) alkaline phosphatase 104 U/L 45-117 Alkaline Phosph atase [facility] ([facility]) albumin 2.9 gm/dL 3.2-5.2 Below low normal Albumin [place] ( [facility]) albumin/globulin ratio Albumin/globu fermin Ratio [place] ([facility]) ID Date Data Source [id number] 01/01/2021 12:00:00 PM EST [place] ([facility]) Name Value Range Interpretation Code Description Data Daisy rce(s) Supporting Document(s) red blood count 2.47 10 4.30-6.10 Below low normal Red Blood Coun t [place] ([facility]) white blood count 9.6 10 4.0-10.0 White Blood Count [place] ([facility]) hemoglobin 7.7 g/dL 13.5-17.5 Below low normal Hemoglobin [place] ( [facility]) hematocrit 26.0 % 42.0-52.0 Below low normal Hematocrit [place] ( [facility]) mean corpuscular volume 105.3 fL 80.0-96.0 Above high normal Mean Corpuscular Volume [facility] ([facility]) mean corpuscular HGB conc 29.6 g/dL 32.0-36.5 Below low rocio l Mean Corpuscular HGB Conc [facility] ([facility]) mean corpuscular hemoglobin 31.2 pg 27.0-33.0 Mean Cor puscular Hemoglobin [place] ([facility]) red cell distribution width 20.8 % 11.5-14.5 Above high no rmal Red Cell Distribution Width [facility] ([facility]) neutrophils % 74.9 % 36.0-66.0 Above high normal Neutrophils % A [place] ([facility]) platelet count, automated 320 10 150-450 Platelet C ount, Automated [facility] ([facility]) lymph % 8.2 % 24.0-44.0 Below low normal Lymph % [facility] ( [facility]) eos % 1.2 % 0.0-3.0 Eos % [facility] ([facility]) mono % 13.9 % 2.0-8.0 Above high normal [place] % [facility] ([facility]) nucleated red blood cell % 0.0 % 0-0 Nucleated Red Blood Cell % [facility] ([facility]) baso % 1.2 % 0.0-1.0 Above high normal Baso % [facility] ([facility]) immature granulocyte % 0.6 % 0-3.0 Immature Gran ulocyte % [facility] ([facility]) lymph # 0.8 10 1.5-5.0 Below low normal Lymph # [facility] ( [facility]) mono # 1.3 10 0.0-0.8 Above high normal [place] # [facility] ([facility]) neutrophils # 7.2 10 1.5-8.5 Neutrophils # [facility] ( [facility]) baso # 0.1 10 0.0-0.2 Baso # [facility] ([facility]) eos # 0.1 10 0.0-0.5 Eos # [facility] ([facility]) ID Date Data Source [id number] 01/01/2021 12:00:00 PM EST [facility] ([facility]) Name Value Range Interpretation Code Description Data Daisy rce(s) Supporting Document(s) ferritin 62 NG/mL 26-388 Ferritin [facility] ([facility]) ID Date Data Source [id number] 01/01/2021 12:00:00 PM EST [facility] ([facility]) Name Value Range Interpretation Code Description Data Daisy rce(s) Supporting Document(s) vitamin B12 level 426 pg/mL Vitamin B12 Level [facility] ([facility]) folate 8.1 NG/mL Folate [facility] ([facility]) ID Date Data Source [id number] 01/01/2021 12:00:00 PM EST [place] ([facility]) Name Value Range Interpretation Code Description Data Daisy rce(s) Supporting Document(s) iron (fe) 24 ug/dL 65-175 Below low normal Iron (Fe) [facility] ( [facility]) total iron binding capacity 338 ug/dL 250-450 Total Ir on Binding Capacity [place] ([facility]) percent saturation 7.1 % 19.7-50.0 Below low normal Percent Sat uration [facility] ([facility]) ID Date Data Source [id number] 01/01/2021 12:00:00 PM EST [place] ([facility]) Name Value Range Interpretation Code Description Data Daisy rce(s) Supporting Document(s) glucose, fasting 61 mg/dL 70-100 Below low normal Glucose, Fast ing [facility] ([facility]) blood urea nitrogen 8 mg/dL 7-18 Blood Urea Nitro gen [facility] ([facility]) creatinine for GFR 0.65 mg/dL 0.70-1.30 Below low normal Creatinine for GFR [place] ([facility]) glomerular filtration rate > 60.0 >56 Glomerula r Filtration Rate [facility] ([facility]) sodium level 134 mEq/L 136-145 Below low normal Sodium Level ATH NA ([facility]) potassium serum 5.1 mEq/L 3.5-5.1 Potassium Serum ATHE NA ([facility]) chloride level 101 mEq/L 98-107 Chloride Level [facility] ([facility]) carbon dioxide level 26 mEq/L 21-32 Carbon Dioxide Level [facility] ([facility]) anion gap 7 mEq/L 8-16 Below low normal Anion Gap [facility] ( [facility]) calcium level 8.3 mg/dL 8.5-10.1 Below low normal Calcium Level AT [facility]) ALT/SGPT 31 U/L 12-78 ALT/SGPT [facility] ([facility]) AST/SGOT 51 U/L 7-37 Above high normal AST/SGOT [place] ([facility]) bilirubin,total < 0.1 0.2-1.0 Below low normal Bilirubin,tota l [place] ([facility]) alkaline phosphatase 104 U/L 45-117 Alkaline Phosph atase [place] ([facility]) albumin 2.9 gm/dL 3.2-5.2 Below low normal Albumin [place] ( [facility]) total protein 6.3 gm/dL 6.4-8.2 Below low normal Total Protein AT [facility]) albumin/globulin ratio Albumin/globu fermin Ratio [place] ([facility]) ID Date Data Source [id number] 01/01/2021 12:00:00 PM EST [place] ([facility]) Name Value Range Interpretation Code Description Data Daisy rce(s) Supporting Document(s) white blood count 9.6 10 4.0-10.0 White Blood Count [place] ([facility]) red blood count 2.47 10 4.30-6.10 Below low normal Red Blood Coun t [place] ([facility]) hemoglobin 7.7 g/dL 13.5-17.5 Below low normal Hemoglobin [facility]) mean corpuscular volume 105.3 fL 80.0-96.0 Above high normal Mean Corpuscular Volume [place] ([facility]) hematocrit 26.0 % 42.0-52.0 Below low normal Hematocrit [place] ( [facility]) mean corpuscular HGB conc 29.6 g/dL 32.0-36.5 Below low rocio l Mean Corpuscular HGB Conc [place] ([facility]) mean corpuscular hemoglobin 31.2 pg 27.0-33.0 Mean Cor puscular Hemoglobin [place] ([facility]) platelet count, automated 320 10 150-450 Platelet C ount, Automated [facility]) red cell distribution width 20.8 % 11.5-14.5 Above high no rmal Red Cell Distribution Width [place] ([facility]) lymph % 8.2 % 24.0-44.0 Below low normal Lymph % [facility] ( [facility]) neutrophils % 74.9 % 36.0-66.0 Above high normal Neutrophils % A [place] ([facility]) mono % 13.9 % 2.0-8.0 Above high normal [place] % [facility] ([facility]) baso % 1.2 % 0.0-1.0 Above high normal Baso % [facility] ([facility]) immature granulocyte % 0.6 % 0-3.0 Immature Gran ulocyte % [facility] ([facility]) eos % 1.2 % 0.0-3.0 Eos % [facility] ([facility]) neutrophils # 7.2 10 1.5-8.5 Neutrophils # [facility] ( [facility]) nucleated red blood cell % 0.0 % 0-0 Nucleated Red Blood Cell % [facility] ([facility]) mono # 1.3 10 0.0-0.8 Above high normal [place] # [facility] ([facility]) lymph # 0.8 10 1.5-5.0 Below low normal Lymph # [facility] ( [facility]) eos # 0.1 10 0.0-0.5 Eos # [facility] ([facility]) baso # 0.1 10 0.0-0.2 Baso # [facility] ([facility]) ID Date Data Source [id number] 01/01/2021 12:00:00 PM EST [place] ([facility]) Name Value Range Interpretation Code Description Data Daisy rce(s) Supporting Document(s) ferritin 62 NG/mL 26-388 Ferritin [facility] ([facility]) ID Date Data Source [id number] 01/01/2021 12:00:00 PM EST [facility] ([facility]) Name Value Range Interpretation Code Description Data Daisy rce(s) Supporting Document(s) vitamin B12 level 426 pg/mL Vitamin B12 Level [facility] ([facility]) folate 8.1 NG/mL Folate [facility] ([facility]) ID Date Data Source [id number] 01/01/2021 12:00:00 PM EST [place] ([facility]) Name Value Range Interpretation Code Description Data Daisy rce(s) Supporting Document(s) iron (fe) 24 ug/dL 65-175 Below low normal Iron (Fe) [facility] ( [facility]) total iron binding capacity 338 ug/dL 250-450 Total Ir on Binding Capacity [place] ([facility]) percent saturation 7.1 % 19.7-50.0 Below low normal Percent Sat uration [facility] ([facility]) ID Date Data Source [id number] 01/01/2021 12:00:00 PM EST [place] ([facility]) Name Value Range Interpretation Code Description Data Daisy rce(s) Supporting Document(s) glucose, fasting 61 mg/dL 70-100 Below low normal Glucose, Fast ing [place] ([facility]) blood urea nitrogen 8 mg/dL 7-18 Blood Urea Nitro gen [facility] ([facility]) glomerular filtration rate > 60.0 >56 Glomerula r Filtration Rate [place] ([facility]) creatinine for GFR 0.65 mg/dL 0.70-1.30 Below low normal Creatinine for GFR [place] ([facility]) potassium serum 5.1 mEq/L 3.5-5.1 Potassium Serum ATH NA ([facility]) sodium level 134 mEq/L 136-145 Below low normal Sodium Level ATHE NA ([facility]) chloride level 101 mEq/L 98-107 Chloride Level [facility] ([facility]) anion gap 7 mEq/L 8-16 Below low normal Anion Gap [facility] ( [facility]) calcium level 8.3 mg/dL 8.5-10.1 Below low normal Calcium Level AT [facility]) AST/SGOT 51 U/L 7-37 Above high normal AST/SGOT [facility] ([facility]) carbon dioxide level 26 mEq/L 21-32 Carbon Dioxide Level [facility]) bilirubin,total < 0.1 0.2-1.0 Below low normal Bilirubin,tota l [place] ([facility]) ALT/SGPT 31 U/L 12-78 ALT/SGPT [place] ([facility]) alkaline phosphatase 104 U/L 45-117 Alkaline Phosph atase [facility] ([facility]) total protein 6.3 gm/dL 6.4-8.2 Below low normal Total Protein AT [facility]) albumin/globulin ratio Albumin/globu fermin Ratio [place] ([facility]) albumin 2.9 gm/dL 3.2-5.2 Below low normal Albumin [place] ( [facility]) ID Date Data Source [id number] 01/01/2021 12:00:00 PM EST [place] ([facility]) Name Value Range Interpretation Code Description Data Daisy rce(s) Supporting Document(s) white blood count 9.6 10 4.0-10.0 White Blood Count [place] ([facility]) hemoglobin 7.7 g/dL 13.5-17.5 Below low normal Hemoglobin [place] ( [facility]) red blood count 2.47 10 4.30-6.10 Below low normal Red Blood Coun t [place] ([facility]) mean corpuscular hemoglobin 31.2 pg 27.0-33.0 Mean Cor puscular Hemoglobin [place] ([facility]) hematocrit 26.0 % 42.0-52.0 Below low normal Hematocrit [place] ( [facility]) mean corpuscular volume 105.3 fL 80.0-96.0 Above high normal Mean Corpuscular Volume [place] ([facility]) platelet count, automated 320 10 150-450 Platelet C ount, Automated [facility] ([facility]) red cell distribution width 20.8 % 11.5-14.5 Above high no rmal Red Cell Distribution Width [place] ([facility]) mean corpuscular HGB conc 29.6 g/dL 32.0-36.5 Below low rocio l Mean Corpuscular HGB Conc [facility]) neutrophils % 74.9 % 36.0-66.0 Above high normal Neutrophils % A [place] ([facility]) lymph % 8.2 % 24.0-44.0 Below low normal Lymph % [facility] ( [facility]) mono % 13.9 % 2.0-8.0 Above high normal [place] % [facility] ([facility]) immature granulocyte % 0.6 % 0-3.0 Immature Gran ulocyte % [facility] ([facility]) baso % 1.2 % 0.0-1.0 Above high normal Baso % [facility] ([facility]) eos % 1.2 % 0.0-3.0 Eos % [facility] ([facility]) lymph # 0.8 10 1.5-5.0 Below low normal Lymph # [facility] ( [facility]) neutrophils # 7.2 10 1.5-8.5 Neutrophils # [facility] ( [facility]) nucleated red blood cell % 0.0 % 0-0 Nucleated Red Blood Cell % [facility] ([facility]) mono # 1.3 10 0.0-0.8 Above high normal [place] # [facility] ([facility]) baso # 0.1 10 0.0-0.2 Baso # [facility] ([facility]) eos # 0.1 10 0.0-0.5 Eos # [facility] ([facility]) ID Date Data Source [id number] 01/01/2021 12:00:00 PM EST [facility] ([facility]) Name Value Range Interpretation Code Description Data Daisy rce(s) Supporting Document(s) ferritin 62 NG/mL 26-388 Ferritin [facility] ([facility]) ID Date Data Source [id number] 01/01/2021 12:00:00 PM EST [facility] ([facility]) Name Value Range Interpretation Code Description Data Daisy rce(s) Supporting Document(s) vitamin B12 level 426 pg/mL Vitamin B12 Level [facility] ([facility]) folate 8.1 NG/mL Folate [facility] ([facility]) ID Date Data Source [id number] 01/01/2021 12:00:00 PM EST [facility] ([facility]) Name Value Range Interpretation Code Description Data Daisy rce(s) Supporting Document(s) iron (fe) 24 ug/dL 65-175 Below low normal Iron (Fe) [facility] ( [facility]) total iron binding capacity 338 ug/dL 250-450 Total Ir on Binding Capacity [facility] ([facility]) percent saturation 7.1 % 19.7-50.0 Below low normal Percent Sat uration [facility] ([facility]) ID Date Data Source [id number] 01/01/2021 12:00:00 PM EST [facility] ([facility]) Name Value Range Interpretation Code Description Data Daisy rce(s) Supporting Document(s) creatinine for GFR 0.65 mg/dL 0.70-1.30 Below low normal Creatinine for GFR [facility] ([facility]) glucose, fasting 61 mg/dL 70-100 Below low normal Glucose, Fast ing [facility] ([facility]) blood urea nitrogen 8 mg/dL 7-18 Blood Urea Nitro gen [facility] ([facility]) potassium serum 5.1 mEq/L 3.5-5.1 Potassium Serum ATHE NA ([facility]) glomerular filtration rate > 60.0 >56 Glomerula r Filtration Rate [facility] ([facility]) sodium level 134 mEq/L 136-145 Below low normal Sodium Level ATHE NA ([facility]) chloride level 101 mEq/L 98-107 Chloride Level [facility] ([facility]) anion gap 7 mEq/L 8-16 Below low normal Anion Gap [facility] ( [facility]) carbon dioxide level 26 mEq/L 21-32 Carbon Dioxide Level [facility] ([facility]) ALT/SGPT 31 U/L 12-78 ALT/SGPT [facility] ([facility]) AST/SGOT 51 U/L 7-37 Above high normal AST/SGOT [facility] ([facility]) calcium level 8.3 mg/dL 8.5-10.1 Below low normal Calcium Level AT [facility] ([facility]) alkaline phosphatase 104 U/L 45-117 Alkaline Phosph atase [facility] ([facility]) bilirubin,total < 0.1 0.2-1.0 Below low normal Bilirubin,tota l [place] ([facility]) total protein 6.3 gm/dL 6.4-8.2 Below low normal Total Protein AT [facility] ([facility]) albumin/globulin ratio Albumin/globu fermin Ratio [place] ([facility]) albumin 2.9 gm/dL 3.2-5.2 Below low normal Albumin [place] ( [facility]) ID Date Data Source [id number] 01/01/2021 12:00:00 PM EST [place] ([facility]) Name Value Range Interpretation Code Description Data Daisy rce(s) Supporting Document(s) white blood count 9.6 10 4.0-10.0 White Blood Count [place] ([facility]) red blood count 2.47 10 4.30-6.10 Below low normal Red Blood Coun t [place] ([facility]) hematocrit 26.0 % 42.0-52.0 Below low normal Hematocrit [place] ( [facility]) hemoglobin 7.7 g/dL 13.5-17.5 Below low normal Hemoglobin [place] ( [facility]) mean corpuscular HGB conc 29.6 g/dL 32.0-36.5 Below low rocio l Mean Corpuscular HGB Conc [place] ([facility]) mean corpuscular volume 105.3 fL 80.0-96.0 Above high normal Mean Corpuscular Volume [place] ([facility]) mean corpuscular hemoglobin 31.2 pg 27.0-33.0 Mean Cor puscular Hemoglobin [place] ([facility]) red cell distribution width 20.8 % 11.5-14.5 Above high no rmal Red Cell Distribution Width [place] ([facility]) platelet count, automated 320 10 150-450 Platelet C ount, Automated [place] ([facility]) mono % 13.9 % 2.0-8.0 Above high normal [place] % [facility] ([facility]) neutrophils % 74.9 % 36.0-66.0 Above high normal Neutrophils % A [place] ([facility]) lymph % 8.2 % 24.0-44.0 Below low normal Lymph % [place] ( [facility]) eos % 1.2 % 0.0-3.0 Eos % [place] ([facility]) immature granulocyte % 0.6 % 0-3.0 Immature Gran ulocyte % [place] ([facility]) baso % 1.2 % 0.0-1.0 Above high normal Baso % [place] ([facility]) nucleated red blood cell % 0.0 % 0-0 Nucleated Red Blood Cell % [place] ([facility]) lymph # 0.8 10 1.5-5.0 Below low normal Lymph # [place] ( [facility]) neutrophils # 7.2 10 1.5-8.5 Neutrophils # [place] ( [facility]) mono # 1.3 10 0.0-0.8 Above high normal [place] # [facility] ([facility]) baso # 0.1 10 0.0-0.2 Baso # [facility] ([facility]) eos # 0.1 10 0.0-0.5 Eos # [facility] ([facility]) ID Date Data Source [id number] 11/12/2020 09:38:00 PM [address] [place] [address] RESPIRATORY CARE REPORT ==== ---------NAME------- NUMBER SEX AGE ADMIT DISC. XRAY# F/C BASIM ROSSI Rey [id number] M 55 11/11/20 11/12/20 [id number] XBE E/R DATE OF : 1965 M/R# [id number] PH#: [phone] TR-05 LOCATION: EMERGENCY DEPT EKG [id number] COMP LETE:11/12/20 08:18 ED 12069 PHYSICIAN: ANGLE BA CH Name Value Range Interpretation Code Description Data Daisy rce(s) Supporting Document(s) ID Date Data Source [id number] 11/12/2020 01:34:00 PM EST [facility] [address] [place] [address] PHONE: [phone] FAX: [phone] Name .................. : KENTON Le Acct Number.................. : [id number] ROOM. ................. : TR- Number ................... : [id number] Stay type ............. : E/R Discharge Date......... ... : Admit Date ......... : 11/11/20 Admit Phys .................... : ANGLE [facility] Date of ....... : 1965 Family Phys ................... : NON STAFF Phone .................. : [phone] Age ................................ : 55 Film# .................. .:[id number] Sex ................................. : M Unsigned transcriptions are preliminary reports and do not represent a medical or legal document CHEST 2 VIEWS [id number] COMPLETE:11/11/20 17:26 GABRIEL 1502 Reason(s): ? GI [...] By Gagandeep Anand M.D. , 11/12/20 13:34, [facility] Transcribe Initials: DZ , Transcribe Date: 11/11/20 20:15, Dictation Date: Copy for: NAGI LOPEZ via fax Copy for: ANGLE Bennett via fax Copy for: EMERGENCY DEPT via modem Copy for: 710 MED REC DISCHARGED Page 1 of 1 Name Value Range Interpretation Code Description Data Daisy rce(s) Supporting Document(s) ID Date Data Source [id number] 11/12/2020 01:33:00 [place] [address] PHONE: [phone] FAX: [phone] Name .................. : K[place]ON Le Acct Number.................. : [id number] ROOM. ................. : TR-05 Number ................... : [id number] Stay type ............. : E/R Discharge Date......... ... : Admit Date ......... : 11/11/20 Admit Phys .................... : ANGLE SAVANNAH Date of ....... : 1965 Family Phys ................... : NON STAFF Phone .................. : [phone] Age ................................ : 55 Film# .................. .:[id number] Sex ................................. : M Unsigned transcriptions are preliminary reports and do not represent a medical or legal document CT ABD & PELVIS W/ IV ONLY [id number] COMPLETE:11/11/20 17:26 GABRIEL 1501 Reason(s): GI bleed [...] imperative reconstructive techniques. Page 1 of 2 [facility] [address] [place] [address] PHONE: [phone] FAX: [phone] Name .................. : KENTON Le Acct Number.................. : [id number] ROOM. ................. : TR05 MR Number ................... : [id number] Stay type ............. : E/R Discharge Date......... ... : Admit Date ......... : 11/11/20 Admit Phys .................... : ANGLE SAVANNAH Date of ....... : 1965 Family Phys ................... : NON STAFF Phone .................. : [phone] Age ................................ : 55 Film# .................. .:[id number] Sex ................................. : M Unsigned transcriptions are preliminary reports and do not represent a medical or legal document CT ABD & PELVIS W/ IV ONLY [id number] COMPLETE:11/11/20 17:26 GABRIEL 1501 Reason(s): GI bleed CT dose: 418.3 mGycm Contrast agent in mL: 75 Isovue 370 Method of administration: Intravenous Examination dictated by MIKAELA Mock. Examination was reviewed with Gagandeep Anand MD, radiologist at the time of this dictation. Electronically Reviewed and Signed By Gagandeep Anand M.D. , 11/12/20 13:33, [facility] Transcribe Initials: DZ , Transcribe Date: 11/11/20 19:11, Dictation Date: Copy for: NAGI LOPEZ via fax Copy for: ANGLE Bennett via fax Copy for: EMERGENCY DEPT via modem Copy for: 710 MED REC DISCHARGED Page 2 of 2 Name Value Range Interpretation Code Description Data Daisy rce(s) Supporting Document(s) ID Date Data Source [id number] 11/12/2020 08:59:43 AM [facility] Name Value Range Interpretation Code Description Data Daisy rce(s) Supporting Document(s) Progress Note [facility] [id number] lbm [file] ID Date Data Source [id number] 11/12/2020 04:18:00 AM EST [facility] Name Value Range Interpretation Code Description Data Daisy rce(s) Supporting Document(s) Microorganism or agent identified in Unspecified speci men Negative for SARS-CoV-2 RNA. [facility] This lab was ordered by [facility] and reported by Department of Pathology and Laboratory Medicine at [facility]. ID Date Data Source [id number] 11/11/2020 01:26:00 PM EST [facility] 1 OrderSheet [facility] Emergency Department [address] [place] [address] Phone #: ext- [phone] 11/11/2020 13:14 Patient: ENID FUNG Sex: M : 1965 Age: 55yWEIGHT:54.4 kg (S) HEIGHT:61 inches (S) BMI:22.7ALLERGIES: Abacavir, Bactrim, Bee stings, Penicillins, Sulfa AntibioticsCHIEF COMPLAINT: rectal bleedingDIAGNOSIS: Anemia, Alcohol intoxication, HIV illness, Kidney stone, Problem, Inflammatory disease of liverLAB ORDERSOrder Description Priority Entered Acknowledged InitialedCBC w Diff STAT 14:11/11/2020 14:35 Chandana Winn RN P.A.-C;CMP STAT 14:11/11/2020 14:35 Chandana Winn RN P.A.- C;Lipase STAT 14:11/11/2020 14:35 Chandana Winn RN P.A.-C;PT/INR STAT 14:11/11/2020 14:35 Chandana Winn RN P.A.-C;PTT STAT 14:11/11/2020 14:35 Annalee Winn RN P.A.-C;Urinalysis (Clean STAT 14:11/11/2020 Ack'd: 21:35 22:13 ChrisenCatch) Chandana Patel RN P.A.-C;ETOH STAT 14:11/11/2020 14:35 Chandana Winn RN P.A.-C;Occult Blood Stool 14:11/11/2020 14:29 Pa,Diagnostic 1 slide Chandana Forrester RN P.A.-C;Type Rh STAT 14:33 11/11/2020 14:35 Chandana Winn RN P.A.-C;Type and Screen STAT 14:33 11/11/2020 14:35 Chandana Winn RN P.A.-C;Lactic Acid STAT 16:16 11/11/2020 16:18 Pa, 2 OrderSheet [facility] Emergency Department [address] [place] [address] Phone #: ext- [phone] 11/11/2020 13:14 Patient: ENID FUNG Sex: M : 1965 Age: 55y Chandana Forrester RN P.A.-C;Troponin-T STAT 17:06 11/11/2020 17:42 Chandana Alfonso-C P.A.-C;COVID-19 CAH (Not STAT 17:23 11/11/2020 20:36 ChristopherSymptomatic as Chandana CuetoCDefined by CDC) P.A.-C;([id number]) (FirstTest) (NotHospitalized) (Not) (NotResident inCongregate CareSetting) (NotEmployed inHealthcare Setting)Influenza Nasal A B STAT 17:23 11/11/2020 20:36 Chandana KeatingACuong-C P.A.-C;ETOH STAT 18:24 11/11/2020 21:36 Pop Patel RN P.A.-C; NOTES: REPEATCBC w Diff STAT 20:35 11/11/2020 21:36 Pop aPtel RN P.A.-C; NOTES: REPEATCMP STAT 20:35 11/11/2020 21:36 Pop Patel RN P.A.-C; NOTES: REPEATTroponin-T STAT 20:35 11/11/2020 21:36 Pop Patel RN P.A.- C; NOTES: REPEATLactic Acid STAT 20:35 11/11/2020 21:36 Pop Patel RN P.A.-C; NOTES: REPEATPT/INR STAT 20:36 11/11/2020 21:36 Pop Patel RN P.A.-C; 3 OrderSheet [facility] Emergency Department [address] [place] [address] Phone #: qco- [phone] 11/11/2020 13:14 Patient: ENID FUNG Sex: M : 1965 Age: 55y NOTES: [...] 10 mL NS, Mitzy Winn RN; Mitzy Engeldminister over at Verbal order per;least 2 minutes, Chandana Lauren x1) P.ACuong- KAREN NS 1000 mL 21:06 11/11/2020 21:33 StevenBolus : Bolus 1000 Chandana Patel RNmL (X1) P.A.-C; 4 OrderSheet [facility] Emergency Department [address] [place] [address] Phone #: ext- [phone] 11/11/2020 13:14 Patient: ENID FUNG Sex: M : 1965 Age: 55yGENERAL ORDERSOrder Description Priority Entered Acknowledged InitialedBlood Pressure 14:11/11/2020 16:15 TerryMonitor Chandana Wolf RN P.A.-C;Utility Engineer 14:11/11/2020 16:15 Héctor(continuous) Chandana Wolf RN P.A.-C;EKG 14:11/11/2020 16:15 Héctor Wolf RN P.A.-C;NPO 14:28 11/11/2020 16:15 Héctor Wolf RN P.A.-C;Obtain Old EKG 14:11/11/2020 16:15 Héctor Wolf RN P.A.-C;Obtain Old Records 14:11/11/2020 16:15 Héctor Wolf RN P.A.-C;Saline Lock 14:11/11/2020 15:09 Chandana Winn RN P.A.-C;Vitals 21:00 11/11/2020 21:36 Pop Patel RN P.A.-C;Vitals - Orthostatic 21:00 11/11/2020 21:36 Pop Patel RN P.A.- C;[Electronically signed by Pop Patel RN (00:57 11/12/2020)][Electronically signed by Chandana Ba P.A.-C (01:07 11/12/2020)][Electronically locked by Pop Patel RN (00:57 11/12/2020)] Name Value Range Interpretation Code Description Data Daisy rce(s) Supporting Document(s) ID Date Data Source [id number] 11/11/2020 01:26:00 PM EST [facility] 1 Medication Reconciliation Report [facility] Emergency Department [address] [place] [address] Phone #: ext- [phone] 11/11/2020 13:14 Patient: [...] rce(s) Supporting Document(s) ID Date Data Source [id number] 11/11/2020 01:26:00 PM EST [facility] 1 Medication Administration Record [facility] Emergency Department [address] [place] [address] Phone #: ext- [phone] 11/11/2020 13:14 Patient: ENID FUNG Sex: M : 1965 Age: 55yWeight: 54.4 kgHeight/Length: 61 inBMI: 22.7ALLERGIES: Bee stings, Penicillins, Abacavir, Bactrim, Sulfa Antibiotics Date/Time Medication Administered Medication OrderedStart IV NS IV NS : Bolus 500 mL, then 01686:17 11/11/2020 Dose: IV Fluids mL/hrMitzy Winn RN Rate: 100 mL/hr over 4 hour(s)---- Bolus: 500 mL over 1 hour(s)Stop Dispensed: 1000 mL bag21:26 11/11/2020 Site: #1 left Taryn Patel RNGiven ZOFRAN [IVP] (ONDANSETRON HCL) Zofran IVP 4 mg15:16 11/11/2020 Dose: 4 mg IVPLaFMitzy dyer RN Site: #1 left ACGiven PROTONIX [IVP] (PANTOPRAZOLE Protonix IV Push 40 mg (in 10 mL15:17 11/11/2020 SODIUM) NS, administer over at least 2LaFMitzy yder RN Dose: 40 mg IVP minutes, NOW x1) Site: #1 left ACStart NS [IV] IV NS 1000 mL Bolus : Bolus 663143:33 11/11/2020 Dose: IV Fluids mL (X1)Pop Patel RN Rate: 1000 mL/hr---- Bolus: 1000 mLStop Dispensed: 1000 mL bag22:38 11/11/2020 Site: #1 left Taryn Patel RN Name Value Range Interpretation Code Description Data Daisy rce(s) Supporting Document(s) ID Date Data Source [id number] 11/11/2020 01:26:00 PM EST [facility] 1 General Instructions [facility] Emergency Department [address] [place] [address] Phone #: ext- [phone] 11/11/2020 13:14 Patient: ENID FUNG Sex: M [...] for yourself at home: 2 General Instructions [facility] Emergency Department [address] [place] [address] Phone #: ext- [phone] 11/11/2020 13:14 Patient: [...] healthcare provider to get the results.Call [phone] or get immediate medical care if any of the following occur: Shortness of breath or chest pain Dizziness or fainting gets worse Vomiting blood or passing red or black-colored stool [id number] [employer] [place] [address]. All rights reserved. This information is not intended as asubstitute for professional medical care. Always follow your healthcare professional's instructions. You have been given the following additional information: Anemia, Type Not Specified (Adult)(Electronically signed by Chandana Ba P.A.-C 11/12/2020 01:07) Name Value Range Interpretation Code Description Data Daisy rce(s) Supporting Document(s) ID Date Data Source [id number] 11/11/2020 01:26:00 PM EST [facility] 1 Clinical Report - Nurses [facility] Emergency Department [address] [place] [address] Phone #: ext- [phone] 11/11/2020 13:14 Patient: ENID FUNG Sex: M : 1965 Age: 55yTRIAGEArrived by private vehicle. Historian: patient.Acuity: LEVEL 3.Chief Complaint: BLOODY STOOLS.Alert. No acute distress.( PT will not answer when this started but says he has been having bloody stools and is anemic. 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 SEPSIS SCREEN NEGATIVE. [...] Lawson R.N. 2 Clinical Report - Nurses [facility] Emergency Department [address] [place] [address] Phone #: ext- [phone] 11/11/2020 13:14 Patient: [...] Lawson R.N.Interventions 3 Clinical Report - Nurses [facility] Emergency Department [address] [place] [address] Phone #: ext- [phone] 11/11/2020 13:14 Patient: [...] and CT by wheelchair with mask and resident physician in radiology. (6472). ( 1630 pt moved to room 5). --16:39 11/11/20 Héctor Wolf RN EKG time: (17:07 11/11/2020). EKG was performed by a nurse and shown to the PA. accelerated junctional. --17:08 11/11/20 Héctor Wolf RN 4 Clinical Report - Nurses [facility] Emergency Department [address] [place] [address] Phone #: ext- [phone] 11/11/2020 13:14 Patient: ENID FUNG Sex: M : 1965 Age: 55yChecked patient name and birthdate. Blood samples drawn by tech. (3330). --17:08 11/11/20 DANIELA Edenatient returned from CT by wheelchair with mask and resident physician in radiology. (1700). --17:09 11/11/20 SAROJ Eden( 1820 supper [...] Patel R.N.( Provider on phone with Rukhsana at [facility].). --20:24 11/11/20 Jeison Patel R.N.21:24 11/11/20. BP: 150/86 (regular adult cuff) taken on the right arm, via an automated monitor, whilelying. MAP: 107. HR: 114 (regular, normal rate and strong). RR: 18 (regular, unlabored and normal). [id number]: 99% on room air. Temp: 99 F [...] and dry. Skin color within normal limits. --21:11/11/20 Pop Patel RN21:26 11/11/2020 IV Fluids IV [...] Patel R.N. 5 Clinical Report - Nurses [facility] Emergency Department [address] [place] [address] Phone #: ext- [phone] 11/11/2020 13:14 Patient: ENID FUNG Sex: M : 1965 Age: 55y Critical value read back. PA notifed of critical value. --21:41 11/11/20 Jeison Patel R.N. ( Call placed to [facility] by provider.). --21:47 11/11/20 Jeison Patel [...] Patel RN Departure time: 00:47 11/12/2020. Transferred ([facility]). Transported via ambulance by oyster farmer with monitor, IV and mask. Patient's personal [...] Temp: 98.3 F (oral). Pain level now: 10. --00:52 11/12/20 Pop Patel RN ( Received 50 cc of blood and was turned over to the Flight crew for transport). --00:57 11/12/20 Pop Patel RN.Locked/Released at 11/12/2020 00:57 by Pop Patel RN Name Value Range Interpretation Code Description Data Daisy rce(s) Supporting Document(s) ID Date Data Source [id number] 11/11/2020 01:26:00 PM EST [facility] 1 Clinical Report - Physicians/Mid Levels [facility] Emergency Department [address] [place] [address] Phone #: ext- [phone] 11/11/2020 13:14 Patient: [...] of anemia. Sts that he was at [facility] yesterday for similar compalints, but left AMA. [...] no known surgeries. 2 Clinical Report - Physicians/Mid Levels [facility] Emergency Department [address] [place] [address] Phone #: ext- [phone] 11/11/2020 13:14 Patient: ENID FUNG Sex: M : 1965 Age: 55y Medications: [...] Pt gives verbal consent for exam. Declines hat lacer). Skin: Skin warm and dry. (Multiple abrsions/itch dunn s/p insect bites of the b/l arms, shoulders, and upper back.). Extremities: Extremities exhibit normal ROM. No lower extremity edema. No calf tenderness. No lower extremity edema. Neuro: Awake. Alert. Speech normal. No motor deficit. 3 Clinical Report - Physicians/[facility] Emergency Department [address] [place] [address] Phone #: ext- [phone] 11/11/2020 13:14 Patient: [...] ua to excluded cystitis frank/kiet Anatoly brown Mike - 11/11/2020 5:27:38 PM no clear evidence of diverticulosis or diverticulitis Frank/Anatoly Anatoly brown Mike - 11/11/2020 5:27:05 PM Normal appendix. Vertebral plana at T12. Prominence of the gastric wall probably secondary to poor distention. If there is any clinical concern for underlying gastric pathology then endoscopy s hould be considered. Complex fracture anteriorly at the left kidney measuring 7 mm. Likely represents a cyst with adjacent calcification. Sonogram for confirmation is recommended. No free fluid. Frank Ledbetter. The study was interpreted by the radiologist. Laboratory Tests: ETOH: (DEB: 11/11/2020 20:50) ( MsgRcvd 11/11/2020 21:24) Final results Test Result Flag Units (Reference) ALCOHOL 92.0 MG/DL ALCOHOL % 0.09 H % (0.00 - 0.01) *FOR MEDICAL PURPOSES ONLY* PT/INR: (DEB: 11/11/2020 20:50) ( MsgRcvd 11/11/2020 21:09) Final results Test Result Flag Units (Reference) PROTIME 13.2 SECONDS (11.0 - 15.5) INR 0.95 (0.93 - 1.23) \\BLDo\\INR INTERPRETATION\\BLDx\\ Therapeutic range for Coumadin and related oral anticoagulants. -International Normalized Ratio (INR): 2.0 - 3.0 for Venous Thrombosis, Pulmonary Embolus, Tissue heart valves, Acute VA, Atrial Fibrillation, Valvular heart disease and recurrent Systemic Embolism. -International Normalized Ratio (INR): 2.5 - 3.5 for Mec hanical Prosthetic valve. 4 Clinical Report - Physicians/[facility] Emergency Department [address] [place] [address] Phone #: ext- [phone] 11/11/2020 13:14 Patient: [...] 30) 5 Clinical Report - Physicians/Mid Levels [facility] Emergency Department [address] [place] [address] Phone #: ext- [phone] 11/11/2020 13:14 Patient: [...] Male GFR Interprentation 20-49 yrs >60 mL/min Qbacnd73-99 yrs >56 mL/min Normal 60-69 yrs >49 mL/min Normal 70-79yrs>42 mL/min Normal 80 and above >35 mL/min Normal Female GFRInterpretation 20-39 yrs >60 mL/min Normal 40-49 yrs >58 mL/minNormal 50-59 yrs >51 mL/min Normal 60-69 yrs >45 mL/min Yphtpd25-45 yrs >39 mL/min Normal 80 and above [...] CLEARED MOLECULAR TESTS. NEGATIVE RESULTSDO NOT PRECLUDE [id number] AND SHOULD NOT BE USED THE SOLE BASISFOR PATIENT MANAGEMENT DECISIONS.Influenza Nasal A B: (DEB: 11/11/2020 19:00) ( MsgRcvd 11/11/2020 19:46) Final results 6 Clinical Report - Physicians/Mid Levels [facility] Emergency Department [address] [place] [address] Phone #: ext- [phone] 11/11/2020 13:14 Patient: [...] other patient managementdecisions.Troponin-T: (DEB: 11/11/2020 14:50) ( [facility] 11/11/2020 17:27) Final results Test Result Flag Units (Reference) TROPONIN T <0.01 NG/ML (0.00 - 0.10) TROPONIN T0.1 ng/ml Recommended as the clinical threshold value forTroponin T.Lactic Acid: (DEB: 11/11/2020 17:09) ( [facility] 11/11/2020 17:44) Final results Test Result Flag Units (Reference) LACTIC ACID 2.3 H MMOL/L (0.2 - 2.2)Chest 2 View: (DEB: 11/11/2020 15:43) ( [facility] 11/11/2020 20:16) In ProgressCHEST 2 VIEWSReason(s): ? GI Bleed/gastric ulcerTRANSPORTATION: WC IV? O2? Oxygen?(No) Room: ED Exam [place] [address] [place] [address] PHONE: [phone] FAX: [phone] Name .................. : KENTON Le Acct Number.................. : [id number] ROOM. ................. : TR-05 Number ................... : [id number] Stay type ............. : E/R Discharge Date......... ... : Admit Date ......... : 11/11/20 Admit Phys .................... : ANGLE SAVANNAH Date of ....... : 1965 Family Phys ................... : NON STAFF Phone .................. : [phone] Age ................................ : 55 Film# .................. .:[id number] Sex ................................. : M Unsigned transcriptions are preliminary reports and do not represent a medical or legal document CHEST 2 VIEWS [id number] COMPLETE:11/11/20 17:26 GABRIEL 1502 Reason(s): ? GI Bleed/gastric ulcer CHEST X-RAY: 2-VIEWS INDICATION: GI bleed/gastric ulcer. FINDINGS: There is extensive scarring identified at the left upper lobe. Correlation with previous chest radiographs would be helpful. No definite focal infiltrate is identified. The cardiac silhouette appears unremarkable. 7 Clinical Report - Physicians/Mid Levels [facility] Emergency Department [address] [place] [address] Phone #: ext- [phone] 11/11/2020 13:14 Patient: ENID FUNG Sex: M : 1965 Age: 55y IMPRESSION: Left upper lobe scarring. No acute pulmonary findings. Examination dictated by MIKAELA Mock. Examination was reviewed with Gagandeep Anand MD, radiologist at the time of this dictation. Electronically Reviewed and Signed By VANI SIGNKATIA DRIVER Transcribe Initials: KORTNEY , Transcribe Date: 11/11/20 20:15, Dictation Date: <<REPDIST>> Page 1of 1CT Abd PEL W/ IV Contrast Only: (DEB: 11/11/2020 15:41) ( MsgRcvd 11/11/2020 19:11) In ProgressCT ABDReason(s): GI bleedTRANSPORTATION: WC IV? IV?(Yes) O2? Oxygen?(No) Ro Exam CT ABD //T// PELVIS W/ IV ONLY [facility] [address] [place] [address] PHONE: [phone] FAX: [phone] Name .................. : KENTON Le Acct Number.................. : [id number] ROOM. ................. : TR-05 MR Number ................... : [id number] Stay type ............. : E/R Discharge Date......... ... : Admit Date ......... : 11/11/20 Admit Phys .................... : [facility] Date of ....... : 1965 Family Phys ................... : NON STAFF Phone .. ................ : [phone] Age ................................ : 55 Film# .................. .:[id number] Sex ................................. : M Unsigned transcriptions are [...] unremarkable. 8 Clinical Report - Physicians/Mid Levels [facility] Emergency Department [address] [place] [address] Phone #: ext- [phone] 11/11/2020 13:14 Patient: [...] of imperative reconstructive techniques. Page 1of 2 [place] [address] PHONE: [phone] FAX: [phone] Name .................. : KENTON LUIS E Le Acct Number.................. : [id number] ROOM. ................. : TR-05 MR Number ................... : [id number] Stay type ............. : E/R Discharge Date......... ... : Admit Date ......... : 11/11/20 Admit Phys .................... : ANGLE SAVANNAH Date of ....... : 1965 Family Phys ................... : NON STAFF Phone .................. : [phone] Age ................................ : 55 Film# .................. .:[id number] Sex ................................. : M Unsigned transcriptions are preliminary reports and do not represent a medical or legal document CT ABD Reason(s): GI bleed CT dose: 418.3 mGycm Contrast agent in mL: 75 Isovue 370 Method of administration: Intravenous Examination dictated by MIKAELA Mock. Examination was reviewed with Gagandeep Anand MD, radiologist at the time of this dictation. Electronically Reviewed and Signed By CAROLYN LUDWIG NHY Transcribe Initials: KORTNEY , Transcribe Date: 11/11/20 19:11, Dictation Date: <<REPDIST>> 9 Clinical Report - Physicians/Mid Levels [facility] Emergency Department [address] [place] [address] Phone #: ext- [phone] 11/11/2020 13:14 Patient: [...] (NORMAL: ROCIO COMMENT: 10 Clinical Report - Physicians/Mid Levels [facility] Emergency Department [address] [place] [address] Phone #: ext- [phone] 11/11/2020 13:14 Patient: ENID FUNG Sex: M : 1965 Age: 55yCMP: (DEB: [...] Male GFR Interprentation 20-49 yrs >60 mL/min Tktvgt04-66 yrs >56 mL/min Normal 60-69 yrs >49 mL/min Normal 70-79yrs>42 mL/min Normal 80 and above >35 mL/min Normal Female GFRInterpretation 20-39 yrs >60 mL/min Normal 40-49 yrs >58 mL/minNormal 50-59 yrs >51 mL/min Normal 60-69 yrs >45 mL/min Iafdqc40-84 yrs >39 mL/min Normal 80 and above >32 mL/min NormalLipase: (DEB: 11/11/2020 14:50) ( MsgRcvd 11/11/2020 15:25) [...] VenousThrombosis, Pulmonary Embolus, Tissue heart valves, Acute VA, Atrial Fibrillation, Valvular heartdisease and recurrent Systemic Embolism. - International Normalized Ratio (INR): 2.5 - 3.5for Mechanical Prosthetic valve.PTT: (DEB: 11/11/2020 14:50) ( MsgRcvd 11/11/2020 16:09) Final results Test Result Flag Units (Reference) PTT 26.3 SECONDS (24.8 - 36.7)Urinalysis: (DEB: 11/11/2020 22:10) ( MsgRcvd 11/11/2020 22:19) Final results Test Result Flag Units (Reference) URINALYSIS 11 Clinical Report - Physicians/Mid Levels [facility] Emergency Department [address] [place] [address] Phone #: ext- [phone] 11/11/2020 13:14 Patient: ENID FUNG Sex: M [...] Not Indicate ETOH: (DEB: 11/11/2020 14:50) ( [facility] 11/11/2020 15:26) Final results Test Result Flag Units (Reference) ALCOHOL 292.0 MG/DL ALCOHOL % 0.29 H % (0.00 - 0.01) *FOR MEDICAL PURPOSES ON LY* Occult Blood Stool Diagnostic 1 slide: (DEB: 11/11/2020 14:15) ( [facility] 11/11/2020 15:25) Final results Test Result Flag Units (Reference) OCCULT BLOOD NEGATIVE (NORMAL: NEGAT OCCULT BLOOD REENTER NEGATIVE (NORMAL: NEGAT { HEMOCCULT LOT # [id number] 1L ){ LOT EXP DATE 03/28 ){ [...] anemia. Pt sts that he was at [facility] yesterday and they wanted to transfer, but pt left AMA because he was upset with [facility]. Pt sts has a hx of anemia. [...] happy. 12 Clinical Report - Physicians/Mid Levels [facility] Emergency Department [address] [place] [address] Phone #: ext- [phone] 11/11/2020 13:14 Patient: ENID FUNG Sex: M : 1965 Age: 55yPE dmeos NV itnact b/l UE and LE. Will obtina previous results. No obvious bleeding source.Labs from yesterday [facility]:RBC: 2.45Hemoglobin: 7.1Hematocrit: 24.5? nubmers 2/2 pts chronic stable numbers as hx of anemia, HIV, and on meds. Pt is currenltyasymptomatic. Reviewed CXR; ? PNU due to hx of HIV vs COVID vs other. Discussed wiht attendng. Recommends toobtian COIVD. Due to mutliple potential exposure, will do rapid. Pt had no COVID complaints, butfindings.18:24 11/11/20. Enter room and patient lying peacefully in bed in [facility]. Patient stable. Denies any newissues, concerns, or complaints.Pt becomes very angry due to no food. Pt threatening to be non-compliant and leave AMA. [facility]. Discussed with attending and agrees to allow food. This willallow better alignment of care and de-esculate pt leaving AMA possibly missing underlying pathology.Will give food and drink.Pt sts willing to transfer, but wants food and declines [facility]. Absolutly declines SMCPt is stable anemic. commission clerk indicates only lab was yesterday; unable to determine baseline. Will needtransfer. ? gastric patho as CT indicates ? finding. ? chronc stabe due to hx and medication. Transferto facility that has GI, ? hematology, ? ID. Will contact DEL.18:30 11/11/20. Called DEL and discussed with Ene. Will call back. Indicates that name does soudnfamilar from yesterday.18:51 11/11/20. DEL calls back and discuss with Antoinette. sts she will call back.19:22 11/11/20. DEL calls back and indicates that no beds and both ERs are on diversion.19:32 11/11/20. Called [facility]. Disucssed with nurse supervisor carton and can supply. Will call back.20:44 11/11/20. Dr. Membreno from [...] not 13 Clinical Report - Physicians/Mid Levels [facility] Emergency Department [address] [place] [address] Phone #: ext- [phone] 11/11/2020 13:14 Patient: ENID FUNG Sex: M [...] Transfer due to no beds. Called [facility] and not able to transferunless cardiac due to no beds. . Called [facility] ([facility]) and infomred no capacity madisyn.22:35 11/11/20. Enter room and patient lying peacefully [...] alternatives to transfer explained to patient. [facility] was not present prior to transfer. Pressure ulcer was not present prior to transfer.Vascular infection (catheter associated) was not present prior to transfer. 14 Clinical Report - Physicians/Mid Levels [facility] Emergency Department [address] [place] [address] Phone #: ext- [phone] 11/11/2020 13:14 Patient: [...] Name Value Range Interpretation Code Description Data [facility](s) Supporting Document(s) ID Date Data Source [id number] 11/11/2020 10:18:00 PM EST [facility] Name Value Range Interpretation Code Description Data [facility](s) Supporting Document(s) URINALYSIS [facility] URINALYSIS SOURCE Clean Catch [facility] ital COLOR yellow NORMAL: Yellow [facility] CLARITY clear NORMAL: Clear [facility] Specific gravity of Urine by Test strip 1.005 1.001 - 1.030 [facility] pH 6 5 - 9 [facility] Gl[facility] [Mass/volume] in Urine by Test strip NORM NORMAL: Negat angela [facility] Bilirubin.total [Presence] in Urine by Test strip NEG NORMAL: Negative [facility] Ketones [Presence] in Urine by Test strip NEG NORMAL: Negative [facility] Protein [Mass/volume] in Urine by Test strip NEG NORMAL: Negat angela [facility] Nitrite [Presence] in Urine by Test strip NEG NORMAL: Negative [facility] BLOOD NEG NORMAL: Negative [facility] Leukocyte esterase [Presence] in Urine by Test strip NEG ROCIO L: Negative [facility] Urobilinogen [Mass/volume] in Urine by Test strip NOR less rafael n 1.0 mg/dL [facility] MICROSCOPIC Not Indicate [facility] ospital ID Date Data Source [id number] 11/11/2020 11:38:00 PM EST [facility] Name Value Range Interpretation Code Description Data Daisy rce(s) Supporting Document(s) [facility] ABO group [Type] in Blood O [facility] Rh [Type] in Blood POSITIVE [facility] { ABO/RH RE-ENTER O POSITIVE ID Date Data Source [id number] 11/11/2020 09:47:00 PM [facility] Name Value Range Interpretation Code Description Data Daisy rce(s) Supporting Document(s) CBC W/AUTOMATED DIFF [facility] COMPLETE BLOOD COUNT Leukocytes [#/volume] in Blood by Automated count 5.9 10^3/uL 4.2 - 1 1.0 [facility] Erythrocytes [#/volume] in Blood by Automated count 2.10 10^6/uL 4. 50 - 6.30 L [facility] Hemoglobin [Mass/volume] in Blood 6.0 g/dL 14.0 - 16.0 [facility] CALL/ READ BACK JEISON KYLE ER [facility] BY: TAD [facility] DATE/TIME 11.11.202126 [facility] Hematocrit [Volume Fraction] of Blood by Automated count 20.5 % 4 1.0 - 51.0 L [facility] Erythrocyte mean corpuscular volume [Entitic volume] by Auto mated count 97.6 fL 80.0 - 94.0 H [facility] Erythrocyte mean corpuscular hemoglobin [Entitic mass] by Automated count 28.6 pg 27.0 - 34.0 [facility] Erythrocyte mean corpuscular hemoglobin concentration [Mass/volume] by Automated count 29.3 g/dL 31.0 - 36.0 L [facility] Erythrocyte distribution width [Ratio] by Automated count 21.5 % 11.5 - 14.8 H [facility] Platelets [#/volume] in Blood by Automated count 437 10^3/uL 150 - 45 0 [facility] Platelet mean volume [Entitic volume] in Blood by Automated count 9.5 fL 7.4 - 10.4 [facility] Neutrophils/100 leukocytes in Blood by Automated count 71.3 % 37. 0 - 80.0 [facility] Lymphocytes/100 leukocytes in Blood by Manual count 9.8 % 25.0 - 40.0 L [facility] Monocytes/100 leukocytes in Blood by Automated count 14.9 % 3.0 - 8.0 H [facility] Eosinophils/100 leukocytes in Blood by Automated count 2.0 % 0.0 - 7.0 [facility] Basophils/100 leukocytes in Blood by Automated count 0.8 % 0.0 - 2.0 [facility] %IG 1.2 % 0.0 - 0.0 H [facility] %NRBC 0.7 % 0.0 - 0.0 H [facility] al Neutrophils [#/volume] in Blood by Automated count 4.20 10^3/uL 2.00 - 6.90 [facility] Lymphocytes [#/volume] in Blood by Automated count 0.58 10^3/uL 0.60 - 3.40 L [facility] Monocytes [#/volume] in Blood by Automated count 0.88 10^3/uL 0.00 - 0.90 [facility] Eosinophils [#/volume] in Blood by Automated count 0.12 10^3/uL 0.00 - 0.70 [facility] Basophils [#/volume] in Blood by Automated count 0.05 10^3/uL 0.00 - 0.20 [facility] #IG 0.07 10^3/uL 0.00 - 0.10 [facility] ospital #NRBC 0.04 10^3/uL 0.00 - 0.00 H [facility] ospital MANUAL DIFF SEE BELOW [facility] Hosp ital Segmented neutrophils/100 leukocytes in Blood by Manual count 75 % 37 - 80 [facility] %LYMPH 14 % 25 - 40 L [facility] Hospit al %MONO 10 % 3 - 8 H [facility] Hospit al %EOS 1 % 0 - 7 [facility] Hospit al RBC MORPH SEE BELOW [facility] al Anisocytosis [Presence] in Blood by Light microscopy 3+ ROCIO L: NONE SEEN A [facility] HYPO 3+ NORMAL: NONE SEEN A [facility] { SICKLE CELL (NORMAL: NONE SEEN ) Target cells [Presence] in Blood by Light microscopy 2+ ROCIO L: NONE SEEN A [facility] Platelet adequacy [Presence] in Blood by Light microscopy IN CREASED NORMAL: NORMAL A [facility] COMMENT: _FEW_PLATELET_CLUMPS_OBSERV ED 11/11/20.2147.TAD. . . ___ ID Date Data Source [id number] 11/11/2020 09:24:00 PM EST [facility] Name Value Range Interpretation Code Description Data Daisy rce(s) Supporting Document(s) Ethanol [Moles/volume] in Blood 92.0 MG/DL [facility] ALCOHOL % 0.09 % 0.00 - 0.01 H [facility] *FOR MEDICAL PURPOSES ONLY * ID Date Data Source [id number] 11/11/2020 09:24:00 PM EST [facility] Name Value Range Interpretation Code Description Data Daisy rce(s) Supporting Document(s) COMPREHENSIVE METABOLIC PANEL [facility] COMPREHENSIVE METABOLIC PANEL Sodium [Moles/volume] in Serum or Plasma 134 mEq/L 134 - 153 [facility] Potassium [Moles/volume] in Serum or Plasma 4.0 mEq/L 3.6 - 5.0 [facility] Chloride [Moles/volume] in Serum or Plasma 101 mEq/L 98 - 107 [facility] Carbon dioxide, total [Moles/volume] in Serum or Plasma 23 MEQ/L 22 - 30 [facility] Glucose [Mass/volume] in Serum or Plasma 81 MG/DL 65 - 110 [facility] BUN 6 MG/DL 7 - 21 L [facility] Creatinine [Mass/volume] in Serum or Plasma 0.6 MG/DL 0.7 - 1.5 L [facility] BUN/CREAT 10 8 - 27 [facility] Protein [Mass/volume] in Serum or Plasma 5.0 G/DL 6.3 - 8.2 L [facility] Albumin [Mass/volume] in Serum or Plasma 2.9 G/DL 3.9 - 5.0 L [facility] Globulin [Mass/volume] in Serum by calculation 2.1 GM/DL 2.4 - 3.2 L [facility] A/G RATIO 1.4 0.8 - 2.0 [facility] Calcium [Mass/volume] in Serum or Plasma 8.2 MG/DL 8.4 - 10.2 L [facility] Bilirubin.total [Mass/volume] in Serum or Plasma <0.7 MG/DL 0.2 - 1.3 [facility] Alkaline phosphatase [Enzymatic activity/volume] in Serum or Plasma 90 U/L 38 - 126 [facility] Aspartate aminotransferase [Enzymatic activity/volume] in Serum or Plasma 19 U/L 5 - 40 [facility] Alanine aminotransferase [Enzymatic activity/volume] in Seru m or Plasma 10 U/L 7 - 56 [facility] Anion gap 3 in Serum or Plasma 10.0 mmol/L 8.0 - 16.0 [facility] AGE 55 yrs [facility] NON-AA GFR >60 mL/min [facility] Hosp ital AFR AMER GFR >60 mL/min [facility] Ho spital Male GFR In terprentation 20-49 [...] >32 mL/min Normal ID Date Data Source [id number] 11/11/2020 09:21:00 PM [facility] Name Value Range Interpretation Code Description Data Daisy rce(s) Supporting Document(s) TROPONIN T <0.01 NG/ML 0.00 - 0.10 [facility] ospital TROPONIN T0.1 ng/ml Recommended as the c linical threshold value forTroponin T. ID Date Data Source [id number] 11/11/2020 09:09:00 PM [facility] Name Value Range Interpretation Code Description Data Daisy rce(s) Supporting Document(s) Prothrombin time (PT) 13.2 SECONDS 11.0 - 15.5 [facility] INR in Platelet poor plasma by Coagulation assay 0.95 0.93 - 1. 23 [facility] \\BLDo\\INR INTERPRETATION\\BLDx\\ Therapeutic range for Coumadin and related oral anticoagulants. - International Normalized Ratio (INR): 2.0 - 3.0 for Venous Thrombosis, Pulmonary Embolus, Tissue heart valves, Acute VA, Atrial Fibrillation, Valvular heart disease and recurrent Systemic Embolism. -International Normalized Ratio (INR): 2.5 - 3.5 for Mechanical Prosthetic valve. ID Date Data Source [id number] 11/11/2020 09:05:00 PM [facility] Name Value Range Interpretation Code Description Data Daisy rce(s) Supporting Document(s) Lactate [Moles/volume] in Serum or Plasma 3.6 MMOL/L 0.2 - 2.2 [facility] CALL/ READ BACK DR NAGI HOLMAN [facility] BY: LJ [facility] DATE/TIME 11.11.202104 [facility] ID Date Data Source [id number] 11/11/2020 07:45:00 PM EST [facility] Name Value Range Interpretation Code Description Data Daisy rce(s) Supporting Document(s) Influenza virus A Ag [Presence] in Nasopharynx by Immunoassa y NEGATIVE NORMAL: NEGATIVE [facility] Influenza virus B Ag [Presence] in Nasopharynx by Immunoassa y NEGATIVE NORMAL: NEGATIVE [facility] NEGATIVENEGATIVE PROCEDURAL CO NTROL VALID KIT LOT [...] other patient managementdecisions. ID Date Data Source [id number] 11/11/2020 07:18:00 PM EST [facility] Name Value Range Interpretation Code Description Data Daisy rce(s) Supporting Document(s) Ethanol [Moles/volume] in Blood 168.0 MG/DL [facility] ALCOHOL % 0.17 % 0.00 - 0.01 H [facility] *FOR MEDICAL PURPOSES ONLY * ID Date Data Source [id number] 11/11/2020 05:30:00 PM EST [facility] Name Value Range Interpretation Code Description Data Daisy rce(s) Supporting Document(s) COVID-19 NOT DETECTED [facility] This lab was ordered by [facility] and reported by [facility]. ID Date Data Source [id number] 11/11/2020 05:30:00 PM EST [facility] Name Value Range Interpretation Code Description Data Daisy rce(s) Supporting Document(s) COVID-19 REENTER NOT DETECTED [facility] This lab was ordered by [facility] and reported by [facility]. ID Date Data Source [id number] 11/11/2020 06:08:00 PM [facility] Name Value Range Interpretation Code Description Data Daisy rce(s) Supporting Document(s) COVID-19 NOT DETECTED [facility] COVID-19 REENTER NOT DETECTED [facility] { PROCEDURAL CONTROL VALID KIT LOT # [...] PATIENT MANAGEMENT DECISIONS. ID Date Data Source [id number] 11/11/2020 05:44:00 PM [facility] Name Value Range Interpretation Code Description Data Daisy rce(s) Supporting Document(s) Lactate [Moles/volume] in Serum or Plasma 2.3 MMOL/L 0.2 - 2.2 H [facility] ID Date Data Source [id number] 11/11/2020 11:46:00 PM [facility] Value Range Interpretation Code Description Data Daisy rce(s) Supporting Document(s) CROSSMATCH [facility] lisa \\MRHx\\\\16PI\\\\LM10\\\\TM00\\ \\BLDo\\\\UN Do\\COMPATABILITY TESTING:\\UNDx\\\\BLDx\\ \\UNDo\\PATIENT INFORMATION\\UNDx\\ ABO group [Type] in Blood O [facility] Rh [Type] in Blood POSITIVE [facility] AB SCREEN NEGATIVE [facility] { ABO/RH RE-ENTER O POS{ AB SCREEN RE-ENTER NEGATIVE \\UNDo\\DONOR INFORMATION\\UNDx\\ UNIT NUMBER _[id number] 11/11/20.DW .[facility]# 195 EXPIRATION DATE _[id number]_ 11/11/20.DW .{ ABO/RH O NEG{ XMATCH RESULT COMPATIBLE{ COMPONENT LRP ID Date Data Source [id number] 11/11/2020 11:39:00 PM [facility] Value Range Interpretation Code Description Data Daisy rce(s) Supporting Document(s) CROSSMATCH [facility]isa \\MRHx\\\\16PI\\\\LM10\\\\TM00\\ \\BLDo\\\\UN Do\\COMPATABILITY TESTING:\\UNDx\\\\BLDx\\ \\UNDo\\PATIENT INFORMATION\\UNDx\\ ABO group [Type] in Blood O [facility] Rh [Type] in Blood POSITIVE [facility] AB SCREEN NEGATIVE [facility] Hospit [facility] { ABO/RH RE-ENTER O POSITIVE{ AB SCREEN RE-ENTER NEGATIVE \\UNDo\\DONOR INFORMATION\\UNDx\\ UNIT NUMBER _[id number] 11/11/20.DW .[facility]# 200 EXPIRATION DATE _[id number]_ 11/11/20.DW .{ ABO/RH O POS{ XMATCH RESULT COMPATIBLE{ COMPONENT [facility] ID Date Data Source [id number] 11/11/2020 05:27:00 PM [facility] Value Range Interpretation Code Description Data Daisy rce(s) Supporting Document(s) TROPONIN T <0.01 NG/ML 0.00 - 0.10 [facility] ospital TROPONIN T0.1 ng/ml Recommended as the c linical threshold value forTroponin T. ID Date Data Source [id number] 11/11/2020 04:17:00 PM [facility] Value Range Interpretation Code Description Data Daisy rce(s) Supporting Document(s) ABO group [Type] in Blood O [facility] Rh [Type] in Blood POSITIVE [facility] AB SCREEN NEGATIVE NORMAL: NEGATIVE [facility] { ABO/RH REENTER O POSITIVE{ AB SCREEN RE-ENTER NEGATIVE ID Date Data Source [id number] 11/11/2020 04:08:00 PM [facility] Value Range Interpretation Code Description Data Daisy rce(s) Supporting Document(s) aPTT in Blood by Coagulation assay 26.3 SECONDS 24.8 - 36.7 [facility] ID Date Data Source [id number] 11/11/2020 04:08:00 PM EST [facility] Name Value Range Interpretation Code Description Data Daisy rce(s) Supporting Document(s) Prothrombin time (PT) 13.0 SECONDS 11.0 - 15.5 [facility] INR in Platelet poor plasma by Coagulation assay 0.94 0.93 - 1. 23 [facility] \\BLDo\\INR INTERPRETATION\\BLDx\\ Therapeutic range for Coumadin and related oral anticoagulants. - International Normalized Ratio (INR): 2.0 - 3.0 for Venous Thrombosis, Pulmonary Embolus, Tissue heart valves, Acute VA, Atrial Fibrillation, Valvular heart disease and recurrent Systemic Embolism. -International Normalized Ratio (INR): 2.5 - 3.5 for Mechanical Prosthetic valve. ID Date Data Source [id number] 11/11/2020 03:49:00 PM [facility] Name Value Range Interpretation Code Description [facility] Supporting Document(s) CBC W/AUTOMATED DIFF [facility] COMPLETE BLOOD COUNT Leukocytes [#/volume] in Blood by Automated count 9.7 10^3/uL 4.2 - 1 1.0 [facility] Erythrocytes [#/volume] in Blood by Automated count 2.47 10^6/uL 4. 50 - 6.30 L [facility] Hemoglobin [Mass/volume] in Blood 7.1 g/dL 14.0 - 16.0 L [facility] Hematocrit [Volume Fraction] of Blood by Automated count 24.1 % 4 1.0 - 51.0 L [facility] Erythrocyte mean corpuscular volume [Entitic volume] by Auto mated count 97.6 fL 80.0 - 94.0 H [facility] Erythrocyte mean corpuscular hemoglobin [Entitic mass] by Automated count 28.7 pg 27.0 - 34.0 [facility] Erythrocyte mean corpuscular hemoglobin concentration [Mass/volume] by Automated count 29.5 g/dL 31.0 - 36.0 L [facility] Erythrocyte distribution width [Ratio] by Automated count 21.6 % 11.5 - 14.8 H [facility] Platelets [#/volume] in Blood by Automated count 490 10^3/uL 150 - 45 0 H [facility] Platelet mean volume [Entitic volume] in Blood by Automated count 9.7 fL 7.4 - 10.4 [facility] Neutrophils/100 leukocytes in Blood by Automated count 71.3 % 37. 0 - 80.0 [facility] Lymphocytes/100 leukocytes in Blood by Manual count 13.2 % 25.0 - 40.0 L [facility] Monocytes/100 leukocytes in Blood by Automated count 12.4 % 3.0 - 8.0 H [facility] Eosinophils/100 leukocytes in Blood by Automated count 1.2 % 0.0 - 7.0 [facility] Basophils/100 leukocytes in Blood by Automated count 1.0 % 0.0 - 2.0 [facility] %IG 0.9 % 0.0 - 0.0 H [facility] %NRBC 0.5 % 0.0 - 0.0 H [facility] Neutrophils [#/volume] in Blood by Automated count 6.89 10^3/uL 2.00 - 6.90 [facility] Lymphocytes [#/volume] in Blood by Automated count 1.28 10^3/uL 0.60 - 3.40 [facility] Monocytes [#/volume] in Blood by Automated count 1.20 10^3/uL 0.00 - 0.90 H [facility] Eosinophils [#/volume] in Blood by Automated count 0.12 10^3/uL 0.00 - 0.70 [facility] Basophils [#/volume] in Blood by Automated count 0.10 10^3/uL 0.00 - 0.20 [facility] #IG 0.09 10^3/uL 0.00 - 0.10 [facility] ospital #NRBC 0.05 10^3/uL 0.00 - 0.00 H [facility] ospital MANUAL DIFF SEE BELOW [facility] Segmented neutrophils/100 leukocytes in Blood by Manual count 77 % 37 - 80 [facility] %LYMPH 14 % 25 - 40 L [facility] %MONO 6 % 3 - 8 [facility] %EOS 3 % 0 - 7 [facility] RBC MORPH SEE BELOW [facility] Anisocytosis [Presence] in Blood by Light microscopy 2+ ROCIO L: NONE SEEN A [facility] HYPO 2+ NORMAL: NONE SEEN A [facility] { SICKLE CELL (NORMAL: NONE SEEN ) Target cells [Presence] in Blood by Light microscopy 2+ ROCIO L: NONE SEEN A [facility] Platelet adequacy [Presence] in Blood by Light microscopy IN CREASED NORMAL: NORMAL A [facility] COMMENT: ID Date Data Source [id number] 11/11/2020 03:25:00 PM EST [facility] Name Value Range Interpretation Code Description Data Daisy rce(s) Supporting Document(s) Ethanol [Moles/volume] in Blood 292.0 MG/DL [facility] ALCOHOL % 0.29 % 0.00 - 0.01 H [facility] ital *FOR MEDICAL PURPOSES ONLY * ID Date Data Source [id number] 11/11/2020 03:25:00 PM EST [facility] Name Value Range Interpretation Code Description Data Daisy rce(s) Supporting Document(s) COMPREHENSIVE METABOLIC PANEL [facility] COMPREHENSIVE METABOLIC PANEL Sodium [Moles/volume] in Serum or Plasma 132 mEq/L 134 - 153 L [facility] Potassium [Moles/volume] in Serum or Plasma 4.8 mEq/L 3.6 - 5.0 [facility] Chloride [Moles/volume] in Serum or Plasma 97 mEq/L 98 - 107 L [facility] Carbon dioxide, total [Moles/volume] in Serum or Plasma 23 MEQ/L 22 - 30 [facility] Glucose [Mass/volume] in Serum or Plasma 84 MG/DL 65 - 110 [facility] BUN 8 MG/DL 7 - 21 [facility] al Creatinine [Mass/volume] in Serum or Plasma 0.6 MG/DL 0.7 - 1.5 L [facility] BUN/CREAT 13 8 - 27 [facility] Protein [Mass/volume] in Serum or Plasma 6.5 G/DL 6.3 - 8.2 [facility] Albumin [Mass/volume] in Serum or Plasma 3.8 G/DL 3.9 - 5.0 L [facility] Globulin [Mass/volume] in Serum by calculation 2.7 GM/DL 2.4 - 3.2 [facility] A/G RATIO 1.4 0.8 - 2.0 [facility] Calcium [Mass/volume] in Serum or Plasma 9.5 MG/DL 8.4 - 10.2 [facility] Bilirubin.total [Mass/volume] in Serum or Plasma <0.7 MG/DL 0.2 - 1.3 [facility] Alkaline phosphatase [Enzymatic activity/volume] in Serum or Plasma 109 U/L 38 - 126 [facility] Aspartate aminotransferase [Enzymatic activity/volume] in Serum or Plasma 23 U/L 5 - 40 [facility] Alanine aminotransferase [Enzymatic activity/volume] in Seru m or Plasma 13 U/L 7 - 56 [facility] Anion gap 3 in Serum or Plasma 12.0 mmol/L 8.0 - 16.0 [facility] AGE 55 yrs [facility] al NON-AA GFR >60 mL/min [facility] ital AFR AMER GFR >60 mL/min [facility] spital Male GFR In terprentation 20-49 yrs [...] >32 mL/min Normal ID Date Data Source [id number] 11/11/2020 03:25:00 PM [facility] Name Value Range Interpretation Code Description Data Daisy rce(s) Supporting Document(s) Lipase [Enzymatic activity/volume] in Serum or Plasma 55 U/L 13 - 60 [facility] ID Date Data Source [id number] 11/11/2020 03:24:00 PM [facility] Name Value Range Interpretation Code Description Data Daisy rce(s) Supporting Document(s) OCCULT BLOOD NEGATIVE NORMAL: NEGATIVE [facility] OCCULT BLOOD REENTER NEGATIVE NORMAL: NEGATIVE [facility] { HEMOCCULT LOT # [id number] ){ LOT EXP DATE 03/28 ){ PROCEDURAL CONTROL POS/NEG VALID ) ID Date Data Source [id number] 11/06/2020 10:20:00 AM EST [facility]) Name Value Range Interpretation Code Description Data Daisy rce(s) Supporting Document(s) total 25(oh) vitamin D 50.3 NG/mL 30.0-100.0 Total 25(Oh) Vitamin D [facility]) ID Date Data Source [id number] 11/06/2020 10:20:00 AM EST [facility]) Name Value Range Interpretation Code Description Data Daisy rce(s) Supporting Document(s) thyroid stimulating hormone 2.990 uIU/mL 0.358-3.740 Thyroid Stimulating Hormone [facility]) ID Date Data Source [id number] 11/06/2020 10:20:00 AM EST [facility]) Name Value Range Interpretation Code Description Data Daisy rce(s) Supporting Document(s) triglycerides level 66 mg/dL <150 Triglycerides [place] EVA ([facility]) cholesterol level 142 mg/dL <200 Cholesterol Level EVA ([facility]) HDL cholesterol 93 mg/dL >40 HDL Cholesterol ATHE ([facility]) cholesterol risk ratio <5 Cholesterol R isk Ratio EVA ([facility]) non-HDL-C 49 mg/dL Non-hdl-c EVA ([facility]) Cholesterol in LDL [Mass/volume] in Serum or Plasma 36 mg/dL <1 00 LDL Cholesterol EVA ([facility]) ID Date Data Source [id number] 11/06/2020 10:20:00 AM EST EVA ([facility]) Name Value Range Interpretation Code Description Data Daisy rce(s) Supporting Document(s) glucose, fasting 74 mg/dL 70-100 Glucose, Fasting AT [facility]) blood urea nitrogen 6 mg/dL 7-18 Below low normal Blood Urea Nitrogen EVA ([facility]) creatinine for GFR 0.66 mg/dL 0.70-1.30 Below low normal Creatinine for GFR EVA ([facility]) sodium level 134 mEq/L 136-145 Below low normal Sodium Level ATHE ([facility]) glomerular filtration rate > 60.0 >56 Glomerula r Filtration Rate EVA ([facility]) chloride level 102 mEq/L 98-107 Chloride Level EVA ([facility]) potassium serum 4.0 mEq/L 3.5-5.1 Potassium Serum ATHE ([facility]) anion gap 6 mEq/L 8-16 Below low normal Anion Gap EVA ( [facility]) carbon dioxide level 26 mEq/L 21-32 Carbon Dioxide Level EVA ([facility]) calcium level 8.5 mg/dL 8.5-10.1 Calcium Level EVA ( [facility]) AST/SGOT 17 U/L 7-37 AST/SGOT EVA ([facility]) ALT/SGPT 15 U/L 12-78 ALT/SGPT EVA ([facility]) alkaline phosphatase 115 U/L 45-117 Alkaline Phosph atase EVA ([facility]) bilirubin,total 0.3 mg/dL 0.2-1.0 Bilirubin,total ATHE NA ([facility]) albumin/globulin ratio Albumin/globu fermin Ratio EVA ([facility]) albumin 2.7 gm/dL 3.2-5.2 Below low normal Albumin EVA ( [facility]) total protein 6.5 gm/dL 6.4-8.2 Total Protein EVA ( [facility]) ID Date Data Source [id number] 11/06/2020 10:20:00 AM EST [place] [facility] ([facility]) Name Value Range Interpretation Code Description Data Daisy rce(s) Supporting Document(s) white blood count 10.1 10 4.0-10.0 Above high normal White Blood Count EVA ([facility]) red blood count 2.45 10 4.30-6.10 Below low normal Red Blood Coun t EVA ([facility]) hemoglobin 7.1 g/dL 13.5-17.5 Below low normal Hemoglobin EVA ( [facility]) hematocrit 24.1 % 42.0-52.0 Below low normal Hematocrit EVA ( [facility]) mean corpuscular hemoglobin 29.0 pg 27.0-33.0 Mean Cor puscular Hemoglobin EVA ([facility]) mean corpuscular HGB conc 29.5 g/dL 32.0-36.5 Below low rocio l Mean Corpuscular HGB Conc EVA ([facility]) mean corpuscular volume 98.4 fL 80.0-96.0 Above high normal Mean Corpuscular Volume EVA ([facility]) red cell distribution width 21.5 % 11.5-14.5 Above high no rmal Red Cell Distribution Width EVA ([facility]) platelet count, automated 457 10 150-450 Above high norm al Platelet Count, Automated EVA ([facility]) lymph % 7.9 % 24.0-44.0 Below low normal Lymph % EVA ( [facility]) neutrophils % 71.9 % 36.0-66.0 Above high normal Neutrophils % A THENA ([facility]) eos % 1.4 % 0.0-3.0 Eos % EVA ([facility]) baso % 1.2 % 0.0-1.0 Above high normal Baso % EVA ([facility]) mono % 16.8 % 0.0-5.0 Above high normal [place] % EVA ([facility]) immature granulocyte % 0.8 % 0-3.0 Immature Gran ulocyte % EVA ([facility]) lymph # 0.8 10 1.5-5.0 Below low normal Lymph # EVA ( [facility]) nucleated red blood cell % 0.3 % 0-0 Above high nor mal Nucleated Red Blood Cell % EVA ([facility]) neutrophils # 7.3 10 1.5-8.5 Neutrophils # EVA ( [facility]) mono # 1.7 10 0.0-0.8 Above high normal [place] # EVA ([facility]) baso # 0.1 10 0.0-0.2 Baso # EVA ([facility]) eos # 0.1 10 0.0-0.5 Eos # EVA ([facility]) ID Date Data Source [id number] 11/06/2020 10:20:00 AM EST EVA ([facility]) Name Value Range Interpretation Code Description Data Daisy rce(s) Supporting Document(s) total 25(oh) vitamin D 50.3 NG/mL 30.0-100.0 Total 25(Oh) Vitamin D EVA ([facility]) ID Date Data Source [id number] 11/06/2020 10:20:00 AM EST EVA ([facility]) Name Value Range Interpretation Code Description Data Daisy rce(s) Supporting Document(s) thyroid stimulating hormone 2.990 uIU/mL 0.358-3.740 Thyroid Stimulating Hormone EVA ([facility]) ID Date Data Source [id number] 11/06/2020 10:20:00 AM EST EVA ([facility]) Name Value Range Interpretation Code Description Data Daisy rce(s) Supporting Document(s) cholesterol level 142 mg/dL <200 Cholesterol Level EVA ([facility]) triglycerides level 66 mg/dL <150 Triglycerides [place] EVA ([facility]) HDL cholesterol 93 mg/dL >40 HDL Cholesterol ATHE ([facility]) non-HDL-C 49 mg/dL Non-hdl-c EVA ([facility]) Cholesterol in LDL [Mass/volume] in Serum or Plasma 36 mg/dL <1 00 LDL Cholesterol EVA ([facility]) cholesterol risk ratio <5 Cholesterol R isk Ratio EVA ([facility]) ID Date Data Source [id number] 11/06/2020 10:20:00 AM EST EVA ([facility]) Name Value Range Interpretation Code Description Data Daisy rce(s) Supporting Document(s) glucose, fasting 74 mg/dL 70-100 Glucose, Fasting AT [facility]) blood urea nitrogen 6 mg/dL 7-18 Below low normal Blood Urea Nitrogen EVA ([facility]) creatinine for GFR 0.66 mg/dL 0.70-1.30 Below low normal Creatinine for GFR EVA ([facility]) glomerular filtration rate > 60.0 >56 Glomerula r Filtration Rate EVA ([facility]) potassium serum 4.0 mEq/L 3.5-5.1 Potassium Serum ATHE ([facility]) sodium level 134 mEq/L 136-145 Below low normal Sodium Level ATHE ([facility]) chloride level 102 mEq/L 98-107 Chloride Level EVA ([facility]) carbon dioxide level 26 mEq/L 21-32 Carbon Dioxide Level EVA ([facility]) calcium level 8.5 mg/dL 8.5-10.1 Calcium Level EVA ( [facility]) AST/SGOT 17 U/L 7-37 AST/SGOT EVA ([facility]) anion gap 6 mEq/L 8-16 Below low normal Anion Gap EVA ( [facility]) ALT/SGPT 15 U/L 12-78 ALT/SGPT EVA ([facility]) bilirubin,total 0.3 mg/dL 0.2-1.0 Bilirubin,total ATHE NA ([facility]) alkaline phosphatase 115 U/L 45-117 Alkaline Phosph atase EVA ([facility]) albumin/globulin ratio Albumin/globu fermin Ratio EVA ([facility]) total protein 6.5 gm/dL 6.4-8.2 Total Protein EVA ( [facility]) albumin 2.7 gm/dL 3.2-5.2 Below low normal Albumin EVA ( [facility]) ID Date Data Source [id number] 11/06/2020 10:20:00 AM EST [place] ([facility]) Name Value Range Interpretation Code Description Data Daisy rce(s) Supporting Document(s) red blood count 2.45 10 4.30-6.10 Below low normal Red Blood Coun t EVA ([facility]) white blood count 10.1 10 4.0-10.0 Above high normal White Blood Count EVA ([facility]) hematocrit 24.1 % 42.0-52.0 Below low normal Hematocrit EVA ( [facility]) hemoglobin 7.1 g/dL 13.5-17.5 Below low normal Hemoglobin EVA ( [facility]) mean corpuscular volume 98.4 fL 80.0-96.0 Above high normal Mean Corpuscular Volume EVA ([facility]) mean corpuscular HGB conc 29.5 g/dL 32.0-36.5 Below low rocio l Mean Corpuscular HGB Conc EVA ([facility]) red cell distribution width 21.5 % 11.5-14.5 Above high no rmal Red Cell Distribution Width EVA ([facility]) mean corpuscular hemoglobin 29.0 pg 27.0-33.0 Mean Cor puscular Hemoglobin EVA ([facility]) lymph % 7.9 % 24.0-44.0 Below low normal Lymph % EVA ( [facility]) neutrophils % 71.9 % 36.0-66.0 Above high normal Neutrophils % A THENA ([facility]) platelet count, automated 457 10 150-450 Above high norm al Platelet Count, Automated EVA ([facility]) mono % 16.8 % 0.0-5.0 Above high normal [place] % EVA ([facility]) baso % 1.2 % 0.0-1.0 Above high normal [place] % EVA ([facility]) eos % 1.4 % 0.0-3.0 Eos % EVA ([facility]) immature granulocyte % 0.8 % 0-3.0 Immature Gran ulocyte % EVA ([facility]) lymph # 0.8 10 1.5-5.0 Below low normal Lymph # [place] ( [facility]) nucleated red blood cell % 0.3 % 0-0 Above high nor mal Nucleated Red Blood Cell % EVA ([facility]) neutrophils # 7.3 10 1.5-8.5 Neutrophils # EVA ( [facility]) mono # 1.7 10 0.0-0.8 Above high normal [place] # EVA ([facility]) eos # 0.1 10 0.0-0.5 Eos # EVA ([facility]) baso # 0.1 10 0.0-0.2 Baso # EVA ([facility]) ID Date Data Source [id number] 11/06/2020 10:20:00 AM EST EVA ([facility]) Name Value Range Interpretation Code Description Data Daisy rce(s) Supporting Document(s) total 25(oh) vitamin D 50.3 NG/mL 30.0-100.0 Total 25(Oh) Vitamin D [place] ([facility]) ID Date Data Source [id number] 11/06/2020 10:20:00 AM EST EVA ([facility]) Name Value Range Interpretation Code Description Data Daisy rce(s) Supporting Document(s) thyroid stimulating hormone 2.990 uIU/mL 0.358-3.740 Thyroid Stimulating Hormone EVA ([facility]) ID Date Data Source [id number] 11/06/2020 10:20:00 AM EST EVA ([facility]) Name Value Range Interpretation Code Description Data Daisy rce(s) Supporting Document(s) triglycerides level 66 mg/dL <150 Triglycerides [place] EVA ([facility]) cholesterol risk ratio <5 Cholesterol R isk Ratio EVA ([facility]) Cholesterol in LDL [Mass/volume] in Serum or Plasma 36 mg/dL <1 00 LDL Cholesterol EVA ([facility]) cholesterol level 142 mg/dL <200 Cholesterol Level EVA ([facility]) non-HDL-C 49 mg/dL Non-hdl-c EVA ([facility]) HDL cholesterol 93 mg/dL >40 HDL Cholesterol ATHE ([facility]) ID Date Data Source [id number] 11/06/2020 10:20:00 AM EST [place] ([facility]) Name Value Range Interpretation Code Description Data Daisy rce(s) Supporting Document(s) glucose, fasting 74 mg/dL 70-100 Glucose, Fasting AT [facility]) sodium level 134 mEq/L 136-145 Below low normal Sodium Level ATHE ([facility]) creatinine for GFR 0.66 mg/dL 0.70-1.30 Below low normal Creatinine for GFR EVA ([facility]) glomerular filtration rate > 60.0 >56 Glomerula r Filtration Rate EVA ([facility]) blood urea nitrogen 6 mg/dL 7-18 Below low normal Blood Urea Nitrogen EVA ([facility]) potassium serum 4.0 mEq/L 3.5-5.1 Potassium Serum ATHE ([facility]) carbon dioxide level 26 mEq/L 21-32 Carbon Dioxide Level EVA ([facility]) anion gap 6 mEq/L 8-16 Below low normal Anion Gap EVA ( [facility]) chloride level 102 mEq/L 98-107 Chloride Level EVA ([facility]) ALT/SGPT 15 U/L 12-78 ALT/SGPT EVA ([facility]) bilirubin,total 0.3 mg/dL 0.2-1.0 Bilirubin,total ATHE NA ([facility]) calcium level 8.5 mg/dL 8.5-10.1 Calcium Level EVA ( [facility]) AST/SGOT 17 U/L 7-37 AST/SGOT EVA ([facility]) alkaline phosphatase 115 U/L 45-117 Alkaline Phosph atase EVA ([facility]) total protein 6.5 gm/dL 6.4-8.2 Total Protein EVA ( [facility]) albumin 2.7 gm/dL 3.2-5.2 Below low normal Albumin EVA ( [facility]) albumin/globulin ratio Albumin/globu fermin Ratio EVA ([facility]) ID Date Data Source [id number] 11/06/2020 10:20:00 AM EST EVA ([facility]) Name Value Range Interpretation Code Description Data Daisy rce(s) Supporting Document(s) red blood count 2.45 10 4.30-6.10 Below low normal Red Blood Coun t EVA ([facility]) white blood count 10.1 10 4.0-10.0 Above high normal White Blood Count EVA ([facility]) mean corpuscular volume 98.4 fL 80.0-96.0 Above high normal Mean Corpuscular Volume EVA ([facility]) hemoglobin 7.1 g/dL 13.5-17.5 Below low normal Hemoglobin EVA ( [facility]) mean corpuscular hemoglobin 29.0 pg 27.0-33.0 Mean Cor puscular Hemoglobin EVA ([facility]) hematocrit 24.1 % 42.0-52.0 Below low normal Hematocrit EVA ( [facility]) red cell distribution width 21.5 % 11.5-14.5 Above high no rmal Red Cell Distribution Width EVA ([facility]) platelet count, automated 457 10 150-450 Above high norm al Platelet Count, Automated EVA ([facility]) mean corpuscular HGB conc 29.5 g/dL 32.0-36.5 Below low rocio l Mean Corpuscular HGB Conc EVA ([facility]) lymph % 7.9 % 24.0-44.0 Below low normal Lymph % EVA ( [facility]) neutrophils % 71.9 % 36.0-66.0 Above high normal Neutrophils % A THENA ([facility]) eos % 1.4 % 0.0-3.0 Eos % EVA ([facility]) mono % 16.8 % 0.0-5.0 Above high normal [place] % EVA ([facility]) nucleated red blood cell % 0.3 % 0-0 Above high nor mal Nucleated Red Blood Cell % EVA ([facility]) neutrophils # 7.3 10 1.5-8.5 Neutrophils # EVA ( [facility]) baso % 1.2 % 0.0-1.0 Above high normal Baso % EVA ([facility]) immature granulocyte % 0.8 % 0-3.0 Immature Gran ulocyte % EVA ([facility]) lymph # 0.8 10 1.5-5.0 Below low normal Lymph # EVA ( [facility]) baso # 0.1 10 0.0-0.2 Baso # EVA ([facility]) mono # 1.7 10 0.0-0.8 Above high normal [place] # EVA ([facility]) eos # 0.1 10 0.0-0.5 Eos # EVA ([facility]) ID Date Data Source [id number] 11/06/2020 10:20:00 AM EST EVA ([facility]) Name Value Range Interpretation Code Description Data Daisy rce(s) Supporting Document(s) total 25(oh) vitamin D 50.3 NG/mL 30.0-100.0 Total 25(Oh) Vitamin D [place] ([facility]) ID Date Data Source [id number] 11/06/2020 10:20:00 AM EST EVA ([facility]) Name Value Range Interpretation Code Description Data Daisy rce(s) Supporting Document(s) thyroid stimulating hormone 2.990 uIU/mL 0.358-3.740 Thyroid Stimulating Hormone EVA ([facility]) ID Date Data Source [id number] 11/06/2020 10:20:00 AM EST EVA ([facility]) Name Value Range Interpretation Code Description Data Daisy rce(s) Supporting Document(s) HDL cholesterol 93 mg/dL >40 HDL Cholesterol ATHE ([facility]) Cholesterol in LDL [Mass/volume] in Serum or Plasma 36 mg/dL <1 00 LDL Cholesterol EVA ([facility]) triglycerides level 66 mg/dL <150 Triglycerides [place] EVA ([facility]) cholesterol level 142 mg/dL <200 Cholesterol Level EVA ([facility]) cholesterol risk ratio <5 Cholesterol R isk Ratio EVA ([facility]) non-HDL-C 49 mg/dL Non-hdl-c EVA ([facility]) ID Date Data Source [id number] 11/06/2020 10:20:00 AM EST EVA ([facility]) Name Value Range Interpretation Code Description Data Daisy rce(s) Supporting Document(s) glucose, fasting 74 mg/dL 70-100 Glucose, Fasting AT [facility]) blood urea nitrogen 6 mg/dL 7-18 Below low normal Blood Urea Nitrogen EVA ([facility]) creatinine for GFR 0.66 mg/dL 0.70-1.30 Below low normal Creatinine for GFR EVA ([facility]) glomerular filtration rate > 60.0 >56 Glomerula r Filtration Rate EVA ([facility]) sodium level 134 mEq/L 136-145 Below low normal Sodium Level ATHE NA ([facility]) potassium serum 4.0 mEq/L 3.5-5.1 Potassium Serum ATHE NA ([facility]) calcium level 8.5 mg/dL 8.5-10.1 Calcium Level EVA ( [facility]) carbon dioxide level 26 mEq/L 21-32 Carbon Dioxide Level EVA ([facility]) chloride level 102 mEq/L 98-107 Chloride Level EVA ([facility]) AST/SGOT 17 U/L 7-37 AST/SGOT EVA ([facility]) anion gap 6 mEq/L 8-16 Below low normal Anion Gap EVA ( [facility]) alkaline phosphatase 115 U/L 45-117 Alkaline Phosph atase EVA ([facility]) ALT/SGPT 15 U/L 12-78 ALT/SGPT EVA ([facility]) bilirubin,total 0.3 mg/dL 0.2-1.0 Bilirubin,total ATHE ([facility]) total protein 6.5 gm/dL 6.4-8.2 Total Protein EVA ( [facility]) albumin/globulin ratio Albumin/globu fermin Ratio EVA ([facility]) albumin 2.7 gm/dL 3.2-5.2 Below low normal Albumin EVA ( [facility]) ID Date Data Source [id number] 11/06/2020 10:20:00 AM EST EVA ([facility]) Name Value Range Interpretation Code Description Data Daisy rce(s) Supporting Document(s) white blood count 10.1 10 4.0-10.0 Above high normal White Blood Count EVA ([facility]) red blood count 2.45 10 4.30-6.10 Below low normal Red Blood Coun t EVA ([facility]) hemoglobin 7.1 g/dL 13.5-17.5 Below low normal Hemoglobin EVA ( [facility]) hematocrit 24.1 % 42.0-52.0 Below low normal Hematocrit EVA ( [facility]) mean corpuscular volume 98.4 fL 80.0-96.0 Above high normal Mean Corpuscular Volume EVA ([facility]) mean corpuscular hemoglobin 29.0 pg 27.0-33.0 Mean Cor puscular Hemoglobin EVA ([facility]) mean corpuscular HGB conc 29.5 g/dL 32.0-36.5 Below low rocio l Mean Corpuscular HGB Conc EVA ([facility]) neutrophils % 71.9 % 36.0-66.0 Above high normal Neutrophils % A THENA ([facility]) lymph % 7.9 % 24.0-44.0 Below low normal Lymph % [place] ( [facility]) platelet count, automated 457 10 150-450 Above high norm al Platelet Count, Automated [place] ([facility]) red cell distribution width 21.5 % 11.5-14.5 Above high no rmal Red Cell Distribution Width [place] ([facility]) mono % 16.8 % 0.0-5.0 Above high normal [place] % [place] ([facility]) eos % 1.4 % 0.0-3.0 Eos % [place] ([facility]) immature granulocyte % 0.8 % 0-3.0 Immature Gran ulocyte % EVA ([facility]) baso % 1.2 % 0.0-1.0 Above high normal Baso % EVA ([facility]) mono # 1.7 10 0.0-0.8 Above high normal [place] # [place] ([facility]) neutrophils # 7.3 10 1.5-8.5 Neutrophils # [place] ( [facility]) nucleated red blood cell % 0.3 % 0-0 Above high nor mal Nucleated Red Blood Cell % EVA ([facility]) lymph # 0.8 10 1.5-5.0 Below low normal Lymph # EVA ( [facility]) eos # 0.1 10 0.0-0.5 Eos # EVA ([facility]) baso # 0.1 10 0.0-0.2 Baso # EVA ([facility]) ID Date Data Source [id number] 08/13/2020 01:20:32 PM EDT [facility] Measurements & CalculationsHeight: 62 inches (5 ft. 2 in.) 157.48 cm Weight: 104 pounds 47.27 kg Body Mass Index (BMI): 19.09BMI Interpretation: Healthy WeightBody Surface Area (BSA): 1.45Weight Management Education Done (Nutrition/Physical Activity)Vital SignsTemperature: 97.8FPulse Rate: 87 beats/minuteRespiratory Rate: 14 respirations/minuteBlood Pressure: 117/80 O2 Saturation: 95% Vital Signs performed by: Amy Field LPN, August 13, 2020 1:28 PMVital Signs performed by: mAy Field LPN, August 13, 2020 1:28 PMInitial [...] during this visit, including review of any gsay-omp-phgufvn medications, herbal therapies, and/or supplements.Allergy ReviewAllergy List [...] PoorAssessment & Plan Problems:Added: Alcohol dependence, uncomplicated (HIO87-A96.20) Assessment: Instructions: Please try to cut back on alcohol intake with a goal to quit.Urinary tract infection, site not specified (XMU89-N58.0) Assessment: Instructions: We have sent a prescription to your pharmacy today. Please take medication as prescribed. Please report any major side evvects.Please try to maintain good personal hy giene. Please try to maintain agequate intake of water daily.Needs influenza immunization (ICD-V04.81) (GZL33-P72.3) Assessment: Instructions: You have had your flu vaccine done today. There may be soreness at the injection site. Please report any adverse reactions.Hematochezia (ICD-578.1) (TUM64-F70.1) Assessment: Instructions: Please call GI specialist to schedule an appointment. Phone number [phone] consulting for explanation of examination or test findings (ICD-V65.8) (MKZ15-V45.2) Assessment: Instructions: We have reviewed your lab results with you today.Assessed:HIV p ositive (ICD-V08) (YIL35-K71) Assessment: Instructions: Please continue medications as prescribed. Please continue to follow with Dr Marquez as scheduled.Chronic obstructive pulmonary disease, unspecified (FPW04-R51.9) Assessment: Instructions: Please try to avoid / cut back on your smoking with a goal to quit. please continue your inhaler as prescribed.Other iron deficiency anemias (KOG11-T19.8) Assessment: Instructions: Please continue your iron medication as prescribed. Please continue healthy diet and physical activities.Nicotine dependence, unspecified, uncomplicated (XUG64-C48.200) Assessment: Instructions: Please continue to try to cut back on your smoking with a goal to quit.Assessment not SavedAnxiety depression (NWS41-C57.8): Patient Instructions/Care Plan: HIV positive: Please continue [...] specialist to schedule an appointment. Phone number [phone] [facility] consulting for explanation of examination or test [...] Virus Vaccine [CPT-G0008] FluLaval Quadrivalent, preservative free [CPT-77516] 65112 - Immo Admin (over 19 yrs), 1st Vaccine [CPT-88068] COMP METABOLIC PANEL [CPT- 96144] CBC W/DIFF [CPT-80764] LIPID PANEL [CPT-94894] VITAMIN B-12 [CPT-53055] IRON [CPT-69058] FERRITIN [CPT-41234] Folate (Folic Acid Serum) [CPT-88147] Adult - Ofc Vst, EST, Level IV [CPT-92110] Follow-Up Return to clinic: 3 months for follow up Clinical Visit Summary CompletedMedications:CIPRO 250 MG ORAL TABLET (CIPROFLOXACIN HCL) take one tablet by mouth twice daily x 7 days #14[Tablet] x 0 Route:ORAL Entered and Authorized by: Alaina WHEELER Method used: Electronically to [facility] (retail) [address] [place] [address] Note to Pharmacy: Route: ORAL; Indications: URINARY TRACT INFECTION, SITE NOT SPECIFIED RxID: [id number] Questionnaire1) Does the patient have a long-term [...] Syringe 0.5 MLMfr / Lot# / Exp.Date: Need Fixed / 724K2 / 1Amt. Given / Route / Site: 0.5 mL / IM / Left DeltoidNDC / CVX: [id number] / 150Administered Date: 08/13/2020 15:19VFC Eligibility: Not VFC EligibleVIS Date: 06/21/2019VIS Given / VIS Given On: 08/13/2020Comments: Administered by: Amy iFeld LPN Name Value Range Interpretation Code Description Data Daisy rce(s) Supporting Document(s) Procedure Social History Code Duration Value Status Description Data Source(s ) Smoking 09/10/2021 12:00:00 AM EDT Current Smoker completed Curre nt Smoker eCW1 ([facility]) Smoking 09/10/2021 12:00:00 AM EDT Current Smoker completed Curre nt Smoker eCW1 ([facility]) Smoking 07/23/2021 12:00:00 AM EDT Current Smoker completed Curre nt Smoker eCW1 ([facility]) Smoking 07/23/2021 12:00:00 AM EDT Current Smoker completed Curre nt Smoker eCW1 ([facility]) Smoking 07/23/2021 12:00:00 AM EDT Current Smoker completed Curre nt Smoker eCW1 ([facility]) Smoking 07/23/2021 12:00:00 AM EDT Current Smoker completed Curre nt Smoker eCW1 ([facility]) Smoking 06/04/2021 12:00:00 AM EDT Current Smoker completed Curre nt Smoker eCW1 ([facility]) Smoking 06/04/2021 12:00:00 AM EDT Current Smoker completed Curre nt Smoker eCW1 ([facility]) Smoking 06/04/2021 12:00:00 AM EDT Current Smoker completed Curre nt Smoker eCW1 ([facility]) Smoking 03/12/2021 12:00:00 AM EDT Current Smoker completed Curre nt Smoker eCW1 ([facility]) Smoking 03/12/2021 12:00:00 AM EDT Current Smoker completed Curre nt Smoker eCW1 ([facility]) Smoking 03/12/2021 12:00:00 AM EDT Current Smoker completed Curre nt Smoker eCW1 ([facility]) Smoking 03/12/2021 12:00:00 AM EDT Current Smoker completed Curre nt Smoker eCW1 ([facility]) Smoking 03/12/2021 12:00:00 AM EDT Current Smoker completed Curre nt Smoker eCW1 ([facility]) Smoking 09/09/2020 12:00:00 AM EST Current Smoker completed Curre nt Smoker eCW1 ([facility]) Smoking 09/09/2020 12:00:00 AM EST Current Smoker completed Curre nt Smoker eCW1 ([facility]) Vital Signs ID Date Data Source UNK Name Value Range Interpretation Code Description Data Source(s) Body weight 102 [lb_av] 102 [lb_av] eCW1 ([facility]) Body weight 46.27 kg 46.27 kg eCW1 ([facility]) Body height 61 [in_i] 61 [in_i] eCW1 ([facility]) Body mass index (BMI) [Ratio] 19.27 kg/m2 19.27 kg/m2 eCW1 ([facility]) Heart rate 88 /min 88 /min eCW1 ([facility]) Respiratory rate 22 /min 22 /min eCW1 ([facility]) Body temperature 98.1 [degF] 98.1 [degF] eCW1 ( [facility]) Body weight 98 [lb_av] 98 [lb_av] eCW1 ([facility]) Body weight 44.45 kg 44.45 kg eCW1 ([facility]) Body height 61 [in_i] 61 [in_i] eCW1 ([facility]) Body mass index (BMI) [Ratio] 18.51 kg/m2 18.51 kg/m2 eCW1 ([facility]) Heart rate 114 /min 114 /min eCW1 ([facility]) Respiratory rate 18 /min 18 /min eCW1 ([facility]) Body temperature 97.6 [degF] 97.6 [degF] eCW1 ( [facility]) Systolic blood pressure 132 mm[Hg] 132 mm[Hg] e CW1 ([facility]) Diastolic blood pressure 78 mm[Hg] 78 mm[Hg] eCW1 ([facility]) Body height 62 [in_i] 62 [in_i] EVA ([facility]) Body weight 108 [lb_av] 108 [lb_av] eCW1 ([facility]) Body height 61 [in_i] 61 [in_i] eCW1 ([facility]) Body mass index (BMI) [Ratio] 20.40 kg/m2 20.40 kg/m2 eCW1 ([facility]) Heart rate 74 /min 74 /min eCW1 ([facility]) Respiratory rate 18 /min 18 /min eCW1 ([facility]) Body temperature 98.7 [degF] 98.7 [degF] eCW1 ( [facility]) Body weight 108 [lb_av] 108 [lb_av] eCW1 ([facility]) Body height 61 [in_i] 61 [in_i] eCW1 ([facility]) Body mass index (BMI) [Ratio] 20.40 kg/m2 20.40 kg/m2 eCW1 ([facility]) Heart rate 68 /min 68 /min eCW1 ([facility]) Respiratory rate 20 /min 20 /min eCW1 ([facility]) Body temperature 98.3 [degF] 98.3 [degF] eCW1 ( [facility]) Body height 62 [in_i] 62 [in_i] EVA ([facility]) Body height 62 [in_i] 62 [in_i] EVA ([facility]) Body height 62 [in_i] 62 [in_i] EVA ([facility]) Systolic blood pressure 131 mm[Hg] 131 mm[Hg] A [facility] ([facility]) Body mass index (BMI) [Ratio] 20.7 kg/m2 20.7 k g/m2 EVA ([facility]) Body weight 1814 [oz_av] 1814 [oz_av] EVA ([facility]) Diastolic blood pressure 87 mm[Hg] 87 mm[Hg] EVA ([facility]) Body mass index (BMI) [Ratio] 20.7 kg/m2 20.7 k g/m2 EVA ([facility]) Systolic blood pressure 131 mm[Hg] 131 mm[Hg] A THENA ([facility]) Body weight 1814 [oz_av] 1814 [oz_av] EVA ([facility]) Diastolic blood pressure 87 mm[Hg] 87 mm[Hg] EVA ([facility]) Body height 62 [in_i] 62 [in_i] EVA ([facility]) Diastolic blood pressure 87 mm[Hg] 87 mm[Hg] EVA ([facility]) Body mass index (BMI) [Ratio] 20.7 kg/m2 20.7 k g/m2 EVA ([facility]) Systolic blood pressure 131 mm[Hg] 131 mm[Hg] A THEN ([facility]) Body weight 1814 [oz_av] 1814 [oz_av] EVA ([facility]) Body height 62 [in_i] 62 [in_i] EVA ([facility]) Diastolic blood pressure 87 mm[Hg] 87 mm[Hg] EVA ([facility]) Body height 62 [in_i] 62 [in_i] EVA ([facility]) Body mass index (BMI) [Ratio] 20.7 kg/m2 20.7 k g/m2 EVA ([facility]) Systolic blood pressure 131 mm[Hg] 131 mm[Hg] A THENA ([facility]) Body weight 1814 [oz_av] 1814 [oz_av] EVA ([facility]) Body weight 117 [lb_av] 117 [lb_av] eCW1 ([facility]) Body height 61 [in_i] 61 [in_i] eCW1 ([facility]) Body mass index (BMI) [Ratio] 22.10 kg/m2 22.10 kg/m2 eCW1 ([facility]) Heart rate 115 /min 115 /min eCW1 ([facility]) Respiratory rate 18 /min 18 /min eCW1 ([facility]) Body temperature 98.6 [degF] 98.6 [degF] eCW1 ( [facility]) Systolic blood pressure 128 mm[Hg] 128 mm[Hg] e CW1 ([facility]) Diastolic blood pressure 74 mm[Hg] 74 mm[Hg] eCW1 ([facility]) ID Date Data Source [id number] 01/30/2021 11:24:44 PM EDT [facility] Name Value Range Interpretation Code Description Data Source(s) TRANSFER FROM [facility] ID Date Data Source [id number] 11/12/2020 09:40:04 AM EST [facility] Name Value Range Interpretation Code Description Data Source(s) TRANSFER FROM [facility] Patient Treatment Plan of Care Planned Activity Planned Date Details Description Data Source (s) Spironolactone 25 MG Oral Tablet [Aldactone] 09/10/2021 12:00:00 AM EDT eCW1 ([facility]) Acetaminophen 500 MG Oral Tablet 09/10/2021 12:00:00 AM EDT eCW1 ([facility]) Spironolactone 25 MG Oral Tablet [Aldactone] 09/10/2021 12:00:00 AM EDT eCW1 ([facility]) Acetaminophen 500 MG Oral Tablet 09/10/2021 12:00:00 AM EDT eCW1 ([facility]) 30 ACTUAT fluticasone furoate 0.2 MG/ACT UAT / vilanterol 0.025 MG/ACTUAT Dry Powder Inhaler [Breo] 08/10/2021 12:00:00 AM EDT eCW1 ([facility]) 30 ACTUAT fluticasone furoate 0.2 MG/ACT UAT / vilanterol 0.025 MG/ACTUAT Dry Powder Inhaler [Breo] 08/10/2021 12:00:00 AM EDT eCW1 ([facility]) cefdinir 300 MG Oral Capsule 07/26/2021 12:00:00 AM EDT eCW1 ([facility]) cefdinir 300 MG Oral Capsule 07/26/2021 12:00:00 AM EDT eCW1 ([facility]) cefdinir 300 MG Oral Capsule 07/26/2021 12:00:00 AM EDT eCW1 ([facility]) cefdinir 300 MG Oral Capsule 07/26/2021 12:00:00 AM EDT eCW1 ([facility]) Daily-Shivam Multivitamin - 04/30/2021 12:00:00 AM EDT eCW1 ([facility]) Daily-Shivam Multivitamin - 04/30/2021 12:00:00 AM EDT eCW1 ([facility]) Daily-Shivam Multivitamin - 04/30/2021 12:00:00 AM EDT eCW1 ([facility]) Sucralfate 1000 MG Oral Tablet EVA ([facility]) olodaterol 0.0025 MG/ACTUAT / tiotropium 0.0025 MG/ACT UAT Metered Dose Inhaler EVA ([facility]) Potassium Chloride 10 MEQ Extended Release Oral Tablet EVA ([facility]) ferrous sulfate 325 MG Oral Tablet EVA ([facility]) Ciprofloxacin 250 MG Oral Tablet EVA ([facility]) Aspirin 81 MG Delayed Release Oral Tablet EVA ([facility]) Ciprofloxacin 250 MG Oral Tablet EVA ([facility]) Ciprofloxacin 250 MG Oral Tablet EVA ([facility]) Ciprofloxacin 250 MG Oral Tablet EVA ([facility])
--- NOTE | 2021-10-13 13:06 | REP ---
INDICATION: SOB. COMPARISON: 07/23/2021, 06/04/2021. TECHNIQUE: Single portable AP view of the chest was performed. FINDINGS: There are chronic parenchymal opacities in the left lung which are unchanged. No new infiltrate is visualized. The heart and mediastinum are unchanged. The visualized osseous structures are unremarkable. IMPRESSION: Stable chronic findings. No evidence of superimposed acute infiltrate. <Electronically signed by Reji Marquez > 10/13/21 1307
[2021-10-13] MEDS ORDERED: PRED10TA2 PO (13:08)
[2021-10-13] MEDS ORDERED: ZITHTAB2 PO (13:08)
[2021-10-13 14:30] VITALS: BP 108/72
== END 2021-10-13 14:30 | disposition home or self-care (01) ==
LOC: M ED 09:57 → EDBD 09:57 → M ED 14:30
DX: J44.1 Chronic obstructive pulmonary disease with (acute) exacerbation (principal); B88.9 Infestation, unspecified; B20 Human immunodeficiency virus [HIV] disease; F17.200 Nicotine dependence, unspecified, uncomplicated; F10.10 Alcohol abuse, uncomplicated; Z88.0 Allergy status to penicillin; Z88.7 Allergy status to serum and vaccine
CPT/HCPCS: 71045; 87798; 94640; 99284; J7512

== ENCOUNTER 2021-10-18 14:45 | Inpatient (IN) | payer OTHER ==
[~2021-10-18] VITALS: Ht 157.5 cm; Wt 44.7 kg
[~2021-10-18 14:45] MED LIST changes: +PRED10TA2 PO; +ZITHTAB2 PO
[2021-10-18 16:49] LABS: BASO % 0.1 % (0.0-1.0); EOS % 0.1 % (0.0-3.0); HEMATOCRIT 22.9 % (42.0-52.0); LYMPH # 0.9 10^3/uL (1.5-5.0); LYMPH % 4.8 % (24.0-44.0); MEAN CORPUSCULAR HEMOGLOBIN 31.5 pg (27.0-33.0); MEAN CORPUSCULAR HGB CONC 30.6 g/dl (32.0-36.5); MEAN CORPUSCULAR VOLUME 103.2 fl (80.0-96.0); MONO # 1.6 10^3/uL (0.0-0.8); MONO % 8.8 % (2.0-8.0); NEUTROPHILS # 15.4 10^3/uL (1.5-8.5); NEUTROPHILS % 84.6 % (36.0-66.0); PLATELET COUNT, AUTOMATED 512 10^3/uL (150-450); RED BLOOD COUNT 2.22 10^6/uL (4.30-6.10); WHITE BLOOD COUNT 18.2 10^3/uL (4.0-10.0)
[2021-10-18 17:15] LABS: ALBUMIN 1.8 GM/DL (3.2-5.2); ALT/SGPT 17 U/L (12-78); BILIRUBIN,DIRECT 0.1 MG/DL (0.0-0.2); BILIRUBIN,TOTAL 0.3 MG/DL (0.2-1.0); BLOOD UREA NITROGEN 3 MG/DL (7-18); CALCIUM LEVEL 8.3 MG/DL (8.5-10.1); CARBON DIOXIDE LEVEL 25 MEQ/L (21-32); CHLORIDE LEVEL 107 MEQ/L (98-107); CREATININE FOR GFR 0.46 MG/DL (0.70-1.30); FREE T4 1.17 NG/DL (0.76-1.46); GLOMERULAR FILTRATION RATE > 60.0 (>56); GLUCOSE, FASTING 65 MG/DL (70-100); LIPASE 79 U/L (73-393); POTASSIUM SERUM 2.9 MEQ/L (3.5-5.1); SODIUM LEVEL 141 MEQ/L (136-145); TOTAL PROTEIN 5.7 GM/DL (6.4-8.2)
[2021-10-18] MEDS ORDERED: KCL 10MEQ/100ML SWI (KRUN) 10 MEQ in IV 1 EA IV ONE (17:15)
[2021-10-18] MEDS ORDERED: NS 500 ML IV ONE (17:15)
[2021-10-18] MEDS ORDERED: POTASSIUM CHLORIDE 10MEQ SR TABLET PO ONE ×2 (17:30→18:15)
[2021-10-18] MEDS ORDERED: HOME MED LIST COMPLETE! XX SCH (18:05)
[2021-10-18] MEDS ORDERED: ACETAMINOPHEN TAB 650MG DOSE (2X325MG) PO PRN (18:15)
[2021-10-18] MEDS ORDERED: predniSONE 10 MG TAB PO SCH (18:15)
[2021-10-18] MEDS ORDERED: LORazepam 2 MG/ML VIAL IV STA (19:39)
[2021-10-18] MEDS ORDERED: LEVALBUTEROL 1.25 MG/0.5 ML CONCENTRATE NEB INH PRN (19:40)
[2021-10-18 20:29] LABS: HEMATOCRIT 23.7 % (42.0-52.0); HEMOGLOBIN 7.2 g/dl (13.5-17.5); MEAN CORPUSCULAR HGB CONC 30.4 g/dl (32.0-36.5); MEAN CORPUSCULAR VOLUME 105.3 fl (80.0-96.0); PLATELET COUNT, AUTOMATED 498 10^3/uL (150-450); RED BLOOD COUNT 2.25 10^6/uL (4.30-6.10); WHITE BLOOD COUNT 19.1 10^3/uL (4.0-10.0)
[2021-10-18 20:35] VITALS: BP 90/54
[2021-10-18 20:50] VITALS: BP 101/69
[2021-10-18] MEDS ORDERED: predniSONE 20 MG TAB PO ONE (21:50)
[2021-10-18 22:00] VITALS: BP 119/60
[2021-10-18 23:00] VITALS: BP 110/61
[2021-10-18 23:55] VITALS: BP 110/60
[2021-10-19] VITALS (8 sets, daily range): BP systolic 110–131; BP diastolic 68–90
[2021-10-19] MEDS ORDERED: FUROSEMIDE 20MG/2ML VIAL (J1940) IV ONE (01:35)
[2021-10-19] MEDS: LEVALBUTEROL 1.25 MG/0.5 ML CONCENTRATE NEB INH PRN ×2 (02:19→20:14)
[2021-10-19 05:46] LABS: MEAN CORPUSCULAR HEMOGLOBIN 31.3 pg (27.0-33.0); MEAN CORPUSCULAR HGB CONC 32.8 g/dl (32.0-36.5); MEAN CORPUSCULAR VOLUME 95.5 fl (80.0-96.0); RED BLOOD COUNT 4.19 10^6/uL (4.30-6.10); WHITE BLOOD COUNT 16.2 10^3/uL (4.0-10.0)
[2021-10-19 05:55] LABS: HEMOGLOBIN 13.1 g/dl (13.5-17.5); PLATELET COUNT, AUTOMATED 365 10^3/uL (150-450)
[2021-10-19 06:35] LABS: BLOOD UREA NITROGEN 3 MG/DL (7-18); CALCIUM LEVEL 8.4 MG/DL (8.5-10.1); CARBON DIOXIDE LEVEL 27 MEQ/L (21-32); CHLORIDE LEVEL 112 MEQ/L (98-107); GLOMERULAR FILTRATION RATE > 60.0 (>56); GLUCOSE, FASTING 116 MG/DL (70-100); MAGNESIUM LEVEL 1.9 MG/DL (1.8-2.4); POTASSIUM SERUM 2.9 MEQ/L (3.5-5.1); SODIUM LEVEL 145 MEQ/L (136-145)
[2021-10-19] MEDS ORDERED: POTASSIUM CHLORIDE 10% LIQ 20 MEQ/15 ML UDC PO ONE (06:40)
[2021-10-19] MEDS: MULTIVITAMINS/MINERALS THERAP 1 TAB PO SCH (09:37)
[2021-10-19] MEDS: FOLIC ACID 1 MG TAB PO SCH (09:37)
[2021-10-19] MEDS: FERROUS GLUCONATE 324 MG TAB PO SCH (09:37)
[2021-10-19] MEDS: PANTOPRAZOLE 40MG TAB (PROTONIX) PO SCH (09:37)
[2021-10-19] MEDS: AZITHROMYCIN 250MG TABLET PO SCH (09:37)
[2021-10-19] MEDS: KCL 10MEQ/100ML SWI (KRUN) 10 MEQ in IV 1 EA IV SCH ×4 (09:37→14:16)
[2021-10-19] MEDS: predniSONE 20 MG TAB PO SCH (09:38)
[2021-10-19] MEDS: THIAMINE 100 MG TAB PO SCH (09:39)
[2021-10-19] MEDS: METOPROLOL SUCC *XL* 25MG TAB (TopROL *XL*) PO SCH (09:39)
[2021-10-19 12:08] LABS: HEMOGLOBIN 12.4 g/dl (13.5-17.5); MEAN CORPUSCULAR HEMOGLOBIN 31.2 pg (27.0-33.0); MEAN CORPUSCULAR HGB CONC 32.6 g/dl (32.0-36.5); MEAN CORPUSCULAR VOLUME 95.7 fl (80.0-96.0); PLATELET COUNT, AUTOMATED 410 10^3/uL (150-450); RED BLOOD COUNT 3.97 10^6/uL (4.30-6.10); WHITE BLOOD COUNT 12.9 10^3/uL (4.0-10.0)
[2021-10-19] MEDS: LORazepam 2 MG TAB PO PRN ×2 (15:05→22:46)
[2021-10-19 15:12] LABS: MAGNESIUM LEVEL 1.9 MG/DL (1.8-2.4); POTASSIUM SERUM 4.8 MEQ/L (3.5-5.1)
[2021-10-19 16:35] LABS: HEMATOCRIT 36.4 % (42.0-52.0); HEMOGLOBIN 11.8 g/dl (13.5-17.5); MEAN CORPUSCULAR HEMOGLOBIN 31.1 pg (27.0-33.0); MEAN CORPUSCULAR HGB CONC 32.4 g/dl (32.0-36.5); PLATELET COUNT, AUTOMATED 405 10^3/uL (150-450); RED BLOOD COUNT 3.79 10^6/uL (4.30-6.10)
[2021-10-19 17:00] LABS: MAGNESIUM LEVEL 1.9 MG/DL (1.8-2.4); POTASSIUM SERUM 4.8 MEQ/L (3.5-5.1)
[2021-10-20 00:53] LABS: HEMATOCRIT 35.2 % (42.0-52.0); HEMOGLOBIN 11.5 g/dl (13.5-17.5); MEAN CORPUSCULAR HEMOGLOBIN 31.4 pg (27.0-33.0); MEAN CORPUSCULAR HGB CONC 32.7 g/dl (32.0-36.5); MEAN CORPUSCULAR VOLUME 96.2 fl (80.0-96.0); PLATELET COUNT, AUTOMATED 437 10^3/uL (150-450); RED BLOOD COUNT 3.66 10^6/uL (4.30-6.10); WHITE BLOOD COUNT 11.4 10^3/uL (4.0-10.0)
[2021-10-20 02:46] VITALS: BP 142/93
[2021-10-20 05:52] LABS: HEMATOCRIT 36.3 % (42.0-52.0); HEMOGLOBIN 11.7 g/dl (13.5-17.5); MEAN CORPUSCULAR HGB CONC 32.2 g/dl (32.0-36.5); MEAN CORPUSCULAR VOLUME 96.3 fl (80.0-96.0); PLATELET COUNT, AUTOMATED 433 10^3/uL (150-450); RED BLOOD COUNT 3.77 10^6/uL (4.30-6.10); WHITE BLOOD COUNT 10.5 10^3/uL (4.0-10.0)
[2021-10-20 06:00] VITALS: BP 135/88
[2021-10-20 06:28] LABS: BLOOD UREA NITROGEN 7 MG/DL (7-18); CALCIUM LEVEL 8.4 MG/DL (8.5-10.1); CARBON DIOXIDE LEVEL 29 MEQ/L (21-32); CHLORIDE LEVEL 114 MEQ/L (98-107); CREATININE FOR GFR 0.38 MG/DL (0.70-1.30); GLOMERULAR FILTRATION RATE > 60.0 (>56); GLUCOSE, FASTING 90 MG/DL (70-100); MAGNESIUM LEVEL 1.9 MG/DL (1.8-2.4); POTASSIUM SERUM 4.1 MEQ/L (3.5-5.1); SODIUM LEVEL 147 MEQ/L (136-145)
[2021-10-20] MEDS: AZITHROMYCIN 250MG TABLET PO SCH (09:57)
[2021-10-20] MEDS: MULTIVITAMINS/MINERALS THERAP 1 TAB PO SCH (09:57)
[2021-10-20] MEDS: predniSONE 20 MG TAB PO SCH (09:57)
[2021-10-20] MEDS: FERROUS GLUCONATE 324 MG TAB PO SCH (09:58)
[2021-10-20] MEDS: METOPROLOL SUCC *XL* 25MG TAB (TopROL *XL*) PO SCH (09:58)
[2021-10-20] MEDS: THIAMINE 100 MG TAB PO SCH (09:58)
[2021-10-20] MEDS: PANTOPRAZOLE 40MG TAB (PROTONIX) PO SCH (09:58)
[2021-10-20] MEDS: FOLIC ACID 1 MG TAB PO SCH (09:58)
[2021-10-20 10:11] VITALS: BP 144/94
[2021-10-20] MEDS: D5W/0.45% SODIUM CHLORIDE 1,000 ML IV SCH ×2 (12:26→23:49)
[2021-10-20 12:28] LABS: HEMATOCRIT 43.9 % (42.0-52.0); HEMOGLOBIN 13.6 g/dl (13.5-17.5); MEAN CORPUSCULAR HEMOGLOBIN 31.1 pg (27.0-33.0); MEAN CORPUSCULAR VOLUME 100.2 fl (80.0-96.0); PLATELET COUNT, AUTOMATED 496 10^3/uL (150-450); RED BLOOD COUNT 4.38 10^6/uL (4.30-6.10); WHITE BLOOD COUNT 15.9 10^3/uL (4.0-10.0)
[2021-10-20 14:08] VITALS: BP_SYST 137; BP_SYST 144; BP_DIAS 92; BP_DIAS 94
[2021-10-20] MEDS: LevoFLOXacin 500 MG TABLET PO SCH (14:18)
[2021-10-20] MEDS: LORazepam 2 MG TAB PO PRN (14:18)
[2021-10-20] MEDS: metroNIDAZOLE 500 MG in IV 1 EA IV SCH ×2 (15:58→22:34)
[2021-10-20] MEDS: HEPARIN SOD (PORCINE) 5000UNITS/ML 1ML VIAL/SYRINGE SQ SCH ×2 (16:02→22:21)
[2021-10-20 22:00] VITALS: BP 130/88
[2021-10-21 06:00] VITALS: BP 128/80
[2021-10-21 06:21] LABS: BASO # 0.1 10^3/uL (0.0-0.2); BASO % 0.7 % (0.0-1.0); EOS % 0.2 % (0.0-3.0); HEMATOCRIT 44.8 % (42.0-52.0); HEMOGLOBIN 13.8 g/dl (13.5-17.5); LYMPH # 1.4 10^3/uL (1.5-5.0); LYMPH % 11.1 % (24.0-44.0); MEAN CORPUSCULAR HEMOGLOBIN 30.8 pg (27.0-33.0); MEAN CORPUSCULAR HGB CONC 30.8 g/dl (32.0-36.5); MONO # 1.1 10^3/uL (0.0-0.8); MONO % 9.3 % (2.0-8.0); NEUTROPHILS # 9.3 10^3/uL (1.5-8.5); NEUTROPHILS % 75.3 % (36.0-66.0); PLATELET COUNT, AUTOMATED 527 10^3/uL (150-450); RED BLOOD COUNT 4.48 10^6/uL (4.30-6.10); WHITE BLOOD COUNT 12.3 10^3/uL (4.0-10.0)
[2021-10-21] MEDS: metroNIDAZOLE 500 MG in IV 1 EA IV SCH (06:23)
[2021-10-21] MEDS: LevoFLOXacin 500 MG TABLET PO SCH (06:23)
[2021-10-21] MEDS: HEPARIN SOD (PORCINE) 5000UNITS/ML 1ML VIAL/SYRINGE SQ SCH ×3 (06:23→21:12)
[2021-10-21 06:45] LABS: BLOOD UREA NITROGEN 8 MG/DL (7-18); CARBON DIOXIDE LEVEL 27 MEQ/L (21-32); CHLORIDE LEVEL 110 MEQ/L (98-107); GLOMERULAR FILTRATION RATE > 60.0 (>56); GLUCOSE, FASTING 95 MG/DL (70-100); MAGNESIUM LEVEL 1.9 MG/DL (1.8-2.4); POTASSIUM SERUM 4.3 MEQ/L (3.5-5.1); SODIUM LEVEL 144 MEQ/L (136-145)
[2021-10-21] MEDS: MULTIVITAMINS/MINERALS THERAP 1 TAB PO SCH (09:52)
[2021-10-21] MEDS: FERROUS GLUCONATE 324 MG TAB PO SCH (09:52)
[2021-10-21] MEDS: FOLIC ACID 1 MG TAB PO SCH (09:52)
[2021-10-21] MEDS: D5W/0.45% SODIUM CHLORIDE 1,000 ML IV SCH (09:52)
[2021-10-21] MEDS: PANTOPRAZOLE 40MG TAB (PROTONIX) PO SCH (09:52)
[2021-10-21] MEDS: THIAMINE 100 MG TAB PO SCH (09:52)
[2021-10-21] MEDS: predniSONE 10 MG TAB PO SCH (09:53)
[2021-10-21] MEDS: METOPROLOL SUCC *XL* 25MG TAB (TopROL *XL*) PO SCH (09:56)
[2021-10-21] MEDS: NYSTATIN 500,000 U/5 ML SUSP UDC PO SCH ×3 (13:39→23:40)
[2021-10-21] MEDS ORDERED: VARIBAR PUDDING 40% w/v 230ML TUBE As Ordered ONE (13:56)
[2021-10-21] MEDS ORDERED: VARIBAR NECTAR 40% w/v 240ML SUSP BTL As Ordered ONE (13:56)
[2021-10-21] MEDS ORDERED: BARIUM SULFATE 700 MG TABLET (E-Z-DISK) As Ordered ONE (13:56)
[2021-10-21] MEDS ORDERED: E-Z-PAQUE 96% w/w SUSP 176GM BTL As Ordered ONE (13:56)
[2021-10-21] MEDS ORDERED: NS 1,000 ML IV ONE ×3 (14:15→20:10)
[2021-10-21] MEDS ORDERED: NS 1,000 ML IV SCH (16:40)
[2021-10-21 17:21] VITALS: BP 122/86
[2021-10-22 06:00] VITALS: BP 132/92
[2021-10-22] MEDS: NYSTATIN 500,000 U/5 ML SUSP UDC PO SCH ×3 (06:00→17:24)
[2021-10-22] MEDS: HEPARIN SOD (PORCINE) 5000UNITS/ML 1ML VIAL/SYRINGE SQ SCH ×3 (06:00→21:14)
[2021-10-22] MEDS: MOXIFLOXACIN 400 MG TAB PO SCH (06:00)
[2021-10-22 06:29] LABS: BASO # 0.1 10^3/uL (0.0-0.2); BASO % 0.6 % (0.0-1.0); EOS # 0.1 10^3/uL (0.0-0.5); HEMATOCRIT 32.1 % (42.0-52.0); LYMPH # 1.4 10^3/uL (1.5-5.0); LYMPH % 15.4 % (24.0-44.0); MEAN CORPUSCULAR HEMOGLOBIN 31.1 pg (27.0-33.0); MEAN CORPUSCULAR HGB CONC 32.1 g/dl (32.0-36.5); MONO % 10.8 % (2.0-8.0); NEUTROPHILS # 6.3 10^3/uL (1.5-8.5); NEUTROPHILS % 67.2 % (36.0-66.0); PLATELET COUNT, AUTOMATED 427 10^3/uL (150-450); RED BLOOD COUNT 3.31 10^6/uL (4.30-6.10); WHITE BLOOD COUNT 9.4 10^3/uL (4.0-10.0)
[2021-10-22 06:32] LABS: HEMOGLOBIN 10.3 g/dl (13.5-17.5)
[2021-10-22 07:02] LABS: BLOOD UREA NITROGEN 6 MG/DL (7-18); CALCIUM LEVEL 7.5 MG/DL (8.5-10.1); CARBON DIOXIDE LEVEL 21 MEQ/L (21-32); CHLORIDE LEVEL 117 MEQ/L (98-107); CREATININE FOR GFR 0.32 MG/DL (0.70-1.30); GLOMERULAR FILTRATION RATE > 60.0 (>56); GLUCOSE, FASTING 73 MG/DL (70-100); MAGNESIUM LEVEL 1.1 MG/DL (1.8-2.4); POTASSIUM SERUM 3.8 MEQ/L (3.5-5.1); SODIUM LEVEL 144 MEQ/L (136-145)
[2021-10-22] MEDS: MULTIVITAMINS/MINERALS THERAP 1 TAB PO SCH (09:27)
[2021-10-22] MEDS: FERROUS GLUCONATE 324 MG TAB PO SCH (09:27)
[2021-10-22] MEDS: MAG SULF 1GM/100ML (MAG RUN) 1 GM in IV 1 EA IV SCH ×3 (09:27→12:14)
[2021-10-22] MEDS: THIAMINE 100 MG TAB PO SCH (09:27)
[2021-10-22] MEDS: FOLIC ACID 1 MG TAB PO SCH (09:27)
[2021-10-22] MEDS: PANTOPRAZOLE 40MG TAB (PROTONIX) PO SCH (09:27)
[2021-10-22] MEDS: predniSONE 10 MG TAB PO SCH (09:28)
[2021-10-22] MEDS: METOPROLOL SUCC *XL* 25MG TAB (TopROL *XL*) PO SCH (09:29)
[2021-10-22] MEDS ORDERED: MAGNESIUM SULFATE 1GM/100ML D5W BAG (10MG/ML) As Ordered ONE (12:12)
[2021-10-22] MEDS: BIKTARVY PO SCH (18:38)
[2021-10-23] MEDS: NYSTATIN 500,000 U/5 ML SUSP UDC PO SCH ×3 (00:30→10:30)
[2021-10-23 05:54] LABS: BASO % 0.4 % (0.0-1.0); EOS # 0.1 10^3/uL (0.0-0.5); EOS % 0.7 % (0.0-3.0); HEMATOCRIT 31.1 % (42.0-52.0); LYMPH # 1.7 10^3/uL (1.5-5.0); LYMPH % 16.8 % (24.0-44.0); MEAN CORPUSCULAR HGB CONC 32.2 g/dl (32.0-36.5); MEAN CORPUSCULAR VOLUME 96.3 fl (80.0-96.0); MONO # 0.9 10^3/uL (0.0-0.8); NEUTROPHILS % 69.9 % (36.0-66.0); PLATELET COUNT, AUTOMATED 424 10^3/uL (150-450); RED BLOOD COUNT 3.23 10^6/uL (4.30-6.10); WHITE BLOOD COUNT 9.9 10^3/uL (4.0-10.0)
[2021-10-23] MEDS: HEPARIN SOD (PORCINE) 5000UNITS/ML 1ML VIAL/SYRINGE SQ SCH ×2 (05:57→14:00)
[2021-10-23] MEDS: MOXIFLOXACIN 400 MG TAB PO SCH (05:57)
[2021-10-23 06:16] LABS: BLOOD UREA NITROGEN 8 MG/DL (7-18); CALCIUM LEVEL 7.6 MG/DL (8.5-10.1); CARBON DIOXIDE LEVEL 25 MEQ/L (21-32); CHLORIDE LEVEL 113 MEQ/L (98-107); CREATININE FOR GFR 0.55 MG/DL (0.70-1.30); GLOMERULAR FILTRATION RATE > 60.0 (>56); GLUCOSE, FASTING 82 MG/DL (70-100); MAGNESIUM LEVEL 2.1 MG/DL (1.8-2.4); POTASSIUM SERUM 3.5 MEQ/L (3.5-5.1); SODIUM LEVEL 142 MEQ/L (136-145)
[2021-10-23] MEDS ORDERED: predniSONE 20 MG TAB PO SCH (09:00)
[2021-10-23] MEDS: MULTIVITAMINS/MINERALS THERAP 1 TAB PO SCH (10:30)
[2021-10-23] MEDS: BIKTARVY PO SCH (10:30)
[2021-10-23] MEDS: PANTOPRAZOLE 40MG TAB (PROTONIX) PO SCH (10:30)
[2021-10-23 10:31] VITALS: BP 128/88
[2021-10-23] MEDS: FOLIC ACID 1 MG TAB PO SCH (10:31)
[2021-10-23] MEDS: METOPROLOL SUCC *XL* 25MG TAB (TopROL *XL*) PO SCH (10:31)
[2021-10-23] MEDS: THIAMINE 100 MG TAB PO SCH (10:31)
[2021-10-23] MEDS ORDERED: PRED10TA2 PO (11:38)
[2021-10-23] MEDS ORDERED: MOXI400T11 PO (11:38)
[2021-10-23] MEDS ORDERED: FERROUS GLUCONATE 324 MG TAB PO SCH (12:00)
[2021-10-25] MEDS ORDERED: predniSONE 10 MG TAB PO SCH (09:00)
== END 2021-10-23 15:00 | disposition home health service (06) | DRG 894 ==
LOC: EDUNIT# 14:45 → EDBD 14:45 → M ED 14:45 → M ED INP 18:14 → M MSPAV 10-19 14:24
PROVIDERS: ADMIT Family Medicine; ATTEND Internal Medicine
PROC: 30233N1 Transfusion of Nonautologous Red Blood Cells into Peripheral Vein, Percutaneous Approach (ICD-10-PCS; principal; 2021-10-18)
DX: D64.9 Anemia, unspecified (principal); J69.0 Pneumonitis due to inhalation of food and vomit; B20 Human immunodeficiency virus [HIV] disease; E46 Unspecified protein-calorie malnutrition; E87.6 Hypokalemia; F10.10 Alcohol abuse, uncomplicated; J44.9 Chronic obstructive pulmonary disease, unspecified; F17.200 Nicotine dependence, unspecified, uncomplicated; H52.209 Unspecified astigmatism, unspecified eye; Z79.899 Other long term (current) drug therapy; Z88.0 Allergy status to penicillin; Z88.8 Allergy status to other drugs, medicaments and biological substances; R00.0 Tachycardia, unspecified; D72.829 Elevated white blood cell count, unspecified

== ENCOUNTER → 2021-11-24 | Outpatient (CLI) | payer OTHER ==
[~2021-11-24] MED LIST changes: +MOXI400T11 PO
[2021-11-24 16:08] LABS: ALBUMIN 3.2 GM/DL (3.2-5.2); ALT/SGPT 18 U/L (12-78); BILIRUBIN,TOTAL < 0.1 MG/DL (0.2-1.0); BLOOD UREA NITROGEN 14 MG/DL (7-18); CALCIUM LEVEL 9.8 MG/DL (8.5-10.1); CARBON DIOXIDE LEVEL 27 MEQ/L (21-32); CHLORIDE LEVEL 106 MEQ/L (98-107); CREATININE FOR GFR 0.74 MG/DL (0.70-1.30); GLOMERULAR FILTRATION RATE > 60.0 (>56); GLUCOSE, FASTING 91 MG/DL (70-100); IRON (FE) 334 UG/DL (65-175); PERCENT SATURATION 87.4 % (19.7-50.0); POTASSIUM SERUM 4.3 MEQ/L (3.5-5.1); SODIUM LEVEL 137 MEQ/L (136-145); TOTAL IRON BINDING CAPACITY 382 UG/DL (250-450); TOTAL PROTEIN 6.6 GM/DL (6.4-8.2)
[2021-11-24 16:11] LABS: BASO # 0.1 10^3/uL (0.0-0.2); BASO % 0.6 % (0.0-1.0); EOS # 0.1 10^3/uL (0.0-0.5); EOS % 1.4 % (0.0-3.0); FOLATE > 24.0 NG/ML; HEMATOCRIT 35.8 % (42.0-52.0); HEMOGLOBIN 11.2 g/dl (13.5-17.5); LYMPH % 39.5 % (24.0-44.0); MEAN CORPUSCULAR HEMOGLOBIN 31.8 pg (27.0-33.0); MEAN CORPUSCULAR HGB CONC 31.3 g/dl (32.0-36.5); MEAN CORPUSCULAR VOLUME 101.7 fl (80.0-96.0); MONO # 1.8 10^3/uL (0.0-0.8); MONO % 17.5 % (2.0-8.0); NEUTROPHILS # 4.1 10^3/uL (1.5-8.5); NEUTROPHILS % 40.4 % (36.0-66.0); PLATELET COUNT, AUTOMATED 367 10^3/uL (150-450); RED BLOOD COUNT 3.52 10^6/uL (4.30-6.10); VITAMIN B12 LEVEL 196 PG/ML; WHITE BLOOD COUNT 10.2 10^3/uL (4.0-10.0)
== END ==
LOC: M PLALAB 12:47
PROVIDERS: ATTEND Internal Medicine Infectious Disease
DX: D50.0 Iron deficiency anemia secondary to blood loss (chronic) (principal)

== ENCOUNTER → 2022-03-22 | Outpatient (CLI) | payer OTHER ==
[2022-03-23 12:12] LABS: % CD8 Pos Lymph 54.1 % (12.0-35.5); %CD4 Pos Lymphs 40.3 % (30.8-58.5); ABS Basophils 0.1 x10E3/uL (0.0-0.2); ABS Eosinophils 0.1 x10E3/uL (0.0-0.4); ABS Lymphs 2.5 x10E3/uL (0.7-3.1); ABS Monocytes 2.1 x10E3/uL (0.1-0.9); ABS Neutophils 5.5 x10E3/uL (1.4-7.0); Abs CD4 Helper 1008 /uL (359-1519); Abs CD8 Suppres 1353 /uL (109-897); CD4/CD8 Ratio 0.74 (0.92-3.72); Eosinophils 1 % (Not Estab.); HCT 30.9 % (37.5-51.0); HGB 10.2 g/dL (13.0-17.7); Imm ABS Grans 0.1 x10E3/uL (0.0-0.1); Immature Grans 1 % (Not Estab.); Lymphocytes 24 % (Not Estab.); MCH 27.8 pg (26.6-33.0); MCV 84 fL (79-97); Monocytes 20 % (Not Estab.); Neutrophils 53 % (Not Estab.); Platelets 428 x10E3/uL (150-450); RBC 3.67 x10E6/uL (4.14-5.80); RDW 16.7 % (11.6-15.4); WBC 10.2 x10E3/uL (3.4-10.8)
== END ==
LOC: M PLALAB 10:19
PROVIDERS: ATTEND Internal Medicine Infectious Disease
DX: B20 Human immunodeficiency virus [HIV] disease (principal)

== ENCOUNTER → 2022-07-07 | Outpatient (CLI) | payer OTHER ==
[2022-07-07 15:47] LABS: BASO # 0.1 10^3/uL (0.0-0.2); BASO % 0.8 % (0.0-1.0); EOS # 0.2 10^3/uL (0.0-0.5); EOS % 1.5 % (0.0-3.0); HEMATOCRIT 31.9 % (42.0-52.0); HEMOGLOBIN 9.6 g/dl (13.5-17.5); LYMPH # 2.6 10^3/uL (1.5-5.0); LYMPH % 22.6 % (24.0-44.0); MEAN CORPUSCULAR HEMOGLOBIN 24.3 pg (27.0-33.0); MEAN CORPUSCULAR HGB CONC 30.1 g/dl (32.0-36.5); MEAN CORPUSCULAR VOLUME 80.8 fl (80.0-96.0); MONO # 1.5 10^3/uL (0.0-0.8); NEUTROPHILS # 7.1 10^3/uL (1.5-8.5); NEUTROPHILS % 61.4 % (36.0-66.0); PLATELET COUNT, AUTOMATED 514 10^3/uL (150-450); RED BLOOD COUNT 3.95 10^6/uL (4.30-6.10); WHITE BLOOD COUNT 11.6 10^3/uL (4.0-10.0)
[2022-07-07 16:01] LABS: ALBUMIN 3.5 GM/DL (3.2-5.2); ALT/SGPT 17 U/L (12-78); BILIRUBIN,TOTAL 0.2 MG/DL (0.2-1.0); BLOOD UREA NITROGEN 11 MG/DL (7-18); CALCIUM LEVEL 9.6 MG/DL (8.5-10.1); CARBON DIOXIDE LEVEL 24 MEQ/L (21-32); CHLORIDE LEVEL 101 MEQ/L (98-107); CREATININE FOR GFR 0.66 MG/DL (0.70-1.30); GLOMERULAR FILTRATION RATE > 60.0 (>56); GLUCOSE, FASTING 85 MG/DL (70-100); IRON (FE) 14 UG/DL (65-175); PERCENT SATURATION 2.9 % (19.7-50.0); POTASSIUM SERUM 4.8 MEQ/L (3.5-5.1); SODIUM LEVEL 131 MEQ/L (136-145); TOTAL IRON BINDING CAPACITY 490 UG/DL (250-450)
== END ==
LOC: M PLALAB 13:38
PROVIDERS: ATTEND Physician Assistant
DX: D50.0 Iron deficiency anemia secondary to blood loss (chronic) (principal); E78.5 Hyperlipidemia, unspecified; Z12.5 Encounter for screening for malignant neoplasm of prostate

== ENCOUNTER 2022-08-05 10:45 | Outpatient (RCR) | payer OTHER | END 2022-08-06 | LOC: M PT 10:45 | PROVIDERS: ATTEND Physician Assistant | DX: M54.50 Low back pain, unspecified (principal) ==

== ENCOUNTER 2022-08-12 10:14 | Outpatient (RCR) | payer OTHER | END 2022-09-06 | LOC: M PT 10:14 | PROVIDERS: ATTEND Physician Assistant | DX: M54.50 Low back pain, unspecified (principal) ==

== ENCOUNTER → 2022-08-13 | Outpatient (REF) | payer OTHER ==
[2022-08-13 13:33] LABS: BASO # 0.1 10^3/uL (0.0-0.2); BASO % 0.7 % (0.0-1.0); EOS # 0.2 10^3/uL (0.0-0.5); EOS % 2.7 % (0.0-3.0); HEMATOCRIT 35.6 % (42.0-52.0); LYMPH # 2.5 10^3/uL (1.5-5.0); LYMPH % 28.3 % (24.0-44.0); MEAN CORPUSCULAR HEMOGLOBIN 26.8 pg (27.0-33.0); MEAN CORPUSCULAR HGB CONC 30.9 g/dl (32.0-36.5); MEAN CORPUSCULAR VOLUME 86.8 fl (80.0-96.0); MONO # 1.4 10^3/uL (0.0-0.8); MONO % 15.3 % (2.0-8.0); NEUTROPHILS # 4.6 10^3/uL (1.5-8.5); NEUTROPHILS % 52.7 % (36.0-66.0); PLATELET COUNT, AUTOMATED 442 10^3/uL (150-450); WHITE BLOOD COUNT 8.8 10^3/uL (4.0-10.0)
[2022-08-13 14:22] LABS: ALBUMIN 3.7 GM/DL (3.2-5.2); ALT/SGPT 18 U/L (12-78); BILIRUBIN,TOTAL 0.2 MG/DL (0.2-1.0); BLOOD UREA NITROGEN 16 MG/DL (7-18); CALCIUM LEVEL 9.6 MG/DL (8.5-10.1); CARBON DIOXIDE LEVEL 26 MEQ/L (21-32); CHLORIDE LEVEL 105 MEQ/L (98-107); CREATININE FOR GFR 0.84 MG/DL (0.70-1.30); GLOMERULAR FILTRATION RATE > 60.0 (>56); GLUCOSE, FASTING 88 MG/DL (70-100); IRON (FE) 204 UG/DL (65-175); PERCENT SATURATION 44.8 % (19.7-50.0); POTASSIUM SERUM 4.7 MEQ/L (3.5-5.1); SODIUM LEVEL 137 MEQ/L (136-145); TOTAL IRON BINDING CAPACITY 455 UG/DL (250-450); TOTAL PROTEIN 7.2 GM/DL (6.4-8.2)
== END ==
LOC: M SFHCPLAZ 12:53
PROVIDERS: ATTEND Physician Assistant
DX: E61.1 Iron deficiency (principal); E87.1 Hypo-osmolality and hyponatremia

== ENCOUNTER → 2022-09-07 | Outpatient (CLI) | payer OTHER | LOC: M WHC 13:53 | PROVIDERS: ATTEND Physician Assistant | DX: N64.4 Mastodynia (principal); N62 Hypertrophy of breast ==

== ENCOUNTER → 2022-09-16 | Outpatient (CLI) | payer OTHER ==
[2022-09-20 12:07] LABS: % CD8 Pos Lymph 55.2 % (12.0-35.5); %CD4 Pos Lymphs 37.1 % (30.8-58.5); ABS Basophils 0.1 x10E3/uL (0.0-0.2); ABS Eosinophils 0.1 x10E3/uL (0.0-0.4); ABS Lymphs 1.9 x10E3/uL (0.7-3.1); ABS Monocytes 0.9 x10E3/uL (0.1-0.9); ABS Neutophils 6.3 x10E3/uL (1.4-7.0); Abs CD4 Helper 705 /uL (359-1519); Abs CD8 Suppres 1049 /uL (109-897); CD4/CD8 Ratio 0.67 (0.92-3.72); Eosinophils 1 % (Not Estab.); HCT 38.3 % (37.5-51.0); HGB 12.1 g/dL (13.0-17.7); HIV-1 RNA PCR QUANT 2 LC550285 30 copies/mL (.); HIV-1 RNA PCR QUANT 3 LC550285 1.477 (.); Immature Grans 0 % (Not Estab.); Lymphocytes 21 % (Not Estab.); MCH 27.8 pg (26.6-33.0); MCHC 31.6 g/dL (31.5-35.7); MCV 88 fL (79-97); Monocytes 10 % (Not Estab.); Neutrophils 67 % (Not Estab.); Platelets 494 x10E3/uL (150-450); RBC 4.35 x10E6/uL (4.14-5.80); RDW 23.1 % (11.6-15.4); WBC 9.3 x10E3/uL (3.4-10.8)
== END ==
LOC: M PLALAB 12:17
PROVIDERS: ATTEND Internal Medicine Infectious Disease
DX: B20 Human immunodeficiency virus [HIV] disease (principal)

== ENCOUNTER → 2022-09-16 | Outpatient (CLI) | payer OTHER ==
[2022-09-16 15:30] LABS: ESTRADIOL 21.4 PG/ML (<39.8); LUTEINIZING HORMONE 41.5 mIU/mL (1.5-9.3)
== END ==
LOC: M PLALAB 12:21
PROVIDERS: ATTEND Physician Assistant
DX: N62 Hypertrophy of breast (principal)

== ENCOUNTER → 2023-01-05 | Outpatient (REF) | payer OTHER ==
[2023-01-05 14:25] LABS: IRON (FE) 38 UG/DL (65-175); PERCENT SATURATION 9.8 % (19.7-50.0); TOTAL IRON BINDING CAPACITY 387 UG/DL (250-425)
[2023-01-05 14:26] LABS: ALBUMIN 3.7 G/DL (3.2-5.2); ALKALINE PHOSPHATASE 74 U/L (46-116); ALT/SGPT 18 U/L (7.0-40); AST/SGOT 29 U/L (<34); BILIRUBIN,TOTAL 0.2 MG/DL (0.3-1.2); BLOOD UREA NITROGEN 19 MG/DL (9-23); CALCIUM LEVEL 9.7 MG/DL (8.5-10.1); CARBON DIOXIDE LEVEL 25 MMOL/L (20-31); CHLORIDE LEVEL 106 MMOL/L (98-107); CREATININE FOR GFR 0.62 MG/DL (0.70-1.30); GLOMERULAR FILTRATION RATE > 60.0 (>56); GLUCOSE, FASTING 89 MG/DL (60-100); SODIUM LEVEL 137 MMOL/L (136-145); TOTAL PROTEIN 6.9 G/DL (5.7-8.2)
[2023-01-05 14:27] LABS: FREE T4 1.24 NG/DL (0.89-1.76); THYROID STIMULATING HORMONE 3.674 uIU/ML (0.55-4.78)
[2023-01-05 14:28] LABS: LUTEINIZING HORMONE 33.4 mIU/ML (1.5-9.3)
[2023-01-05 15:15] LABS: BASO # 0.1 10^3/uL (0.0-0.2); BASO % 0.8 % (0.0-1.0); EOS # 0.3 10^3/uL (0.0-0.5); EOS % 2.9 % (0.0-3.0); HEMATOCRIT 37.1 % (42.0-52.0); HEMOGLOBIN 11.9 g/dl (13.5-17.5); LYMPH % 26.5 % (24.0-44.0); MEAN CORPUSCULAR HEMOGLOBIN 28.8 pg (27.0-33.0); MEAN CORPUSCULAR HGB CONC 32.1 g/dl (32.0-36.5); MEAN CORPUSCULAR VOLUME 89.8 fl (80.0-96.0); MONO % 16.7 % (2.0-8.0); NEUTROPHILS # 6.1 10^3/uL (1.5-8.5); NEUTROPHILS % 52.8 % (36.0-66.0); PLATELET COUNT, AUTOMATED 535 10^3/uL (150-450); RED BLOOD COUNT 4.13 10^6/uL (4.30-6.10); WHITE BLOOD COUNT 11.5 10^3/uL (4.0-10.0)
[2023-01-05 15:16] LABS: MONO # 1.9 10^3/uL (0.0-0.8)
[2023-01-06 23:08] LABS: TESTOSTERONE FREE (DIRECT) 4.5 pg/mL (7.2-24.0)
== END ==
LOC: M PLALAB 12:54
PROVIDERS: ATTEND Physician Assistant
DX: E61.1 Iron deficiency (principal); N64.4 Mastodynia

== ENCOUNTER → 2023-03-15 | Outpatient (CLI) | payer OTHER ==
[~2023-03-15] MED LIST changes: +ASPI-655 PO; -ASPI1CHW3 PO
[2023-03-15 15:16] LABS: ALBUMIN 4.1 G/DL (3.2-5.2); ALKALINE PHOSPHATASE 93 U/L (46-116); ALT/SGPT 22 U/L (7.0-40); AST/SGOT 32 U/L (<34); BILIRUBIN,TOTAL 0.4 MG/DL (0.3-1.2); BLOOD UREA NITROGEN 13 MG/DL (9-23); CALCIUM LEVEL 9.7 MG/DL (8.5-10.1); CARBON DIOXIDE LEVEL 26 MMOL/L (20-31); CHLORIDE LEVEL 103 MMOL/L (98-107); CREATININE FOR GFR 0.62 MG/DL (0.70-1.30); GLOMERULAR FILTRATION RATE > 60.0 (>56); GLUCOSE, FASTING 57 MG/DL (60-100); POTASSIUM SERUM 4.5 MMOL/L (3.5-5.1); SODIUM LEVEL 134 MMOL/L (136-145); TOTAL PROTEIN 7.4 G/DL (5.7-8.2)
[2023-03-15 15:18] LABS: TOTAL 25(OH) VITAMIN D 40.4 NG/ML (20.0-100.0)
[2023-03-15 16:48] LABS: GC DNA AMPLIFICATION NEGATIVE (NEGATIVE)
[2023-03-16 19:07] LABS: % CD8 Pos Lymph 58.2 % (12.0-35.5); %CD4 Pos Lymphs 30.9 % (30.8-58.5); ABS Basophils 0.1 x10E3/uL (0.0-0.2); ABS Eosinophils 0.2 x10E3/uL (0.0-0.4); ABS Monocytes 1.3 x10E3/uL (0.1-0.9); ABS Neutophils 5.7 x10E3/uL (1.4-7.0); Abs CD4 Helper 1236 /uL (359-1519); Abs CD8 Suppres 2328 /uL (109-897); CD4/CD8 Ratio 0.53 (0.92-3.72); Eosinophils 1 % (Not Estab.); HCT 41.1 % (37.5-51.0); HIV-1 RNA PCR QUANT 2 LC550285 30 copies/mL (.); HIV-1 RNA PCR QUANT 3 LC550285 1.477 (.); Immature Grans 0 % (Not Estab.); Lymphocytes 35 % (Not Estab.); MCH 30.7 pg (26.6-33.0); MCHC 34.1 g/dL (31.5-35.7); MCV 90 fL (79-97); Monocytes 12 % (Not Estab.); Neutrophils 51 % (Not Estab.); Platelets 331 x10E3/uL (150-450); RBC 4.56 x10E6/uL (4.14-5.80); RDW 21.1 % (11.6-15.4); WBC 11.3 x10E3/uL (3.4-10.8)
== END ==
LOC: M PLALAB 11:23
PROVIDERS: ATTEND Internal Medicine Infectious Disease
DX: B20 Human immunodeficiency virus [HIV] disease (principal)

== ENCOUNTER 2023-09-07 14:59 | Emergency (ER) | payer OTHER ==
[~2023-09-07] VITALS: Ht 154.9 cm; Wt 44.5 kg
[2023-09-07 15:08] VITALS: BP 156/93; TEMP 97.7; O2SAT 97
[2023-09-07 16:46] LABS: BASO # 0.1 10^3/uL (0.0-0.2); BASO % 0.7 % (0.0-1.0); EOS # 0.1 10^3/uL (0.0-0.5); HEMATOCRIT 30.5 % (42.0-52.0); HEMOGLOBIN 9.8 g/dl (13.5-17.5); LYMPH # 2.3 10^3/uL (1.5-5.0); LYMPH % 16.7 % (24.0-44.0); MEAN CORPUSCULAR HEMOGLOBIN 29.2 pg (27.0-33.0); MEAN CORPUSCULAR HGB CONC 32.1 g/dl (32.0-36.5); MEAN CORPUSCULAR VOLUME 90.8 fl (80.0-96.0); MONO % 13.4 % (2.0-8.0); NEUTROPHILS # 9.1 10^3/uL (1.5-8.5); NEUTROPHILS % 67.2 % (36.0-66.0); PLATELET COUNT, AUTOMATED 727 10^3/uL (150-450); RED BLOOD COUNT 3.36 10^6/uL (4.30-6.10); WHITE BLOOD COUNT 13.6 10^3/uL (4.0-10.0)
[2023-09-07 16:53] LABS: MONO # 1.8 10^3/uL (0.0-0.8)
[2023-09-07 17:34] LABS: LIPASE 63 U/L (12-53)
[2023-09-07 17:37] LABS: ALBUMIN 3.3 G/DL (3.2-5.2); ALKALINE PHOSPHATASE 118 U/L (46-116); ALT/SGPT 27 U/L (7.0-40); AST/SGOT 26 U/L (<34); BILIRUBIN,DIRECT < 0.1 MG/DL (<0.4); BILIRUBIN,TOTAL < 0.2 MG/DL (0.3-1.2); BLOOD UREA NITROGEN 24 MG/DL (9-23); CALCIUM LEVEL 9.4 MG/DL (8.5-10.1); CARBON DIOXIDE LEVEL 26 MMOL/L (20-31); CHLORIDE LEVEL 98 MMOL/L (98-107); CREATININE FOR GFR 0.46 MG/DL (0.70-1.30); GLOMERULAR FILTRATION RATE > 60.0 (>56); GLUCOSE, FASTING 83 MG/DL (60-100); POTASSIUM SERUM 4.5 MMOL/L (3.5-5.1); SODIUM LEVEL 132 MMOL/L (136-145)
[2023-09-07] MEDS ORDERED: KETOROLAC 30 MG/ML 1ML VIAL IV ONE (17:45)
[2023-09-07] MEDS: GASTROGRAFIN SOLUTION 30ML PO SCH ×2 (18:41→19:14)
[2023-09-07] MEDS ORDERED: ISOVUE-370 76% 100ML VIAL As Ordered ONE (19:57)
[2023-09-07] MEDS ORDERED: ACETAMINOPHEN *IV* 1,000 MG in IV 1 EA IV ONE (21:25)
[2023-09-07] MEDS ORDERED: DICY-61 PO (22:16)
== END 2023-09-07 23:01 | disposition home or self-care (01) ==
LOC: M ED 14:59 → EDBD 14:59 → M ED 23:01
DX: R10.9 Unspecified abdominal pain (principal); Z20.7 Contact with and (suspected) exposure to pediculosis, acariasis and other infestations; J44.9 Chronic obstructive pulmonary disease, unspecified; K21.9 Gastro-esophageal reflux disease without esophagitis; F17.200 Nicotine dependence, unspecified, uncomplicated; F10.10 Alcohol abuse, uncomplicated; F31.9 Bipolar disorder, unspecified; Z88.0 Allergy status to penicillin; Z88.6 Allergy status to analgesic agent; Z79.1 Long term (current) use of non-steroidal anti-inflammatories (NSAID); Z79.810 Long term (current) use of selective estrogen receptor modulators (SERMs); Z79.899 Other long term (current) drug therapy
CPT/HCPCS: 36415; 74177; 80048; 80076; 81001; 83690; 85025; 96374; 96375; 99284; J0131; J1885; Q9963; Q9967

== ENCOUNTER → 2023-12-01 | Outpatient (CLI) | payer OTHER ==
[~2023-12-01] MED LIST changes: +DICY-61 PO
[2023-12-01 16:03] LABS: BASO # 0.1 10^3/uL (0.0-0.2); BASO % 0.8 % (0.0-1.0); EOS # 0.1 10^3/uL (0.0-0.5); EOS % 0.6 % (0.0-3.0); HEMATOCRIT 30.6 % (42.0-52.0); HEMOGLOBIN 9.1 g/dl (13.5-17.5); LYMPH # 2.4 10^3/uL (1.5-5.0); LYMPH % 25.5 % (24.0-44.0); MEAN CORPUSCULAR HEMOGLOBIN 22.2 pg (27.0-33.0); MEAN CORPUSCULAR HGB CONC 29.7 g/dl (32.0-36.5); MEAN CORPUSCULAR VOLUME 74.8 fl (80.0-96.0); MONO # 1.2 10^3/uL (0.0-0.8); MONO % 12.8 % (2.0-8.0); NEUTROPHILS # 5.6 10^3/uL (1.5-8.5); NEUTROPHILS % 58.6 % (36.0-66.0); PLATELET COUNT, AUTOMATED 418 10^3/uL (150-450); RED BLOOD COUNT 4.09 10^6/uL (4.30-6.10); WHITE BLOOD COUNT 9.5 10^3/uL (4.0-10.0)
[2023-12-01 16:37] LABS: ALBUMIN 3.6 G/DL (3.2-5.2); ALKALINE PHOSPHATASE 89 U/L (46-116); ALT/SGPT 31 U/L (7.0-40); AST/SGOT 31 U/L (<34); BILIRUBIN,TOTAL < 0.2 MG/DL (0.3-1.2); BLOOD UREA NITROGEN 15 MG/DL (9-23); CARBON DIOXIDE LEVEL 28 MMOL/L (20-31); CHLORIDE LEVEL 100 MMOL/L (98-107); CREATININE FOR GFR 0.64 MG/DL (0.70-1.30); FERRITIN 24.6 NG/ML (10.5-307.3); GLOMERULAR FILTRATION RATE > 60.0 (>56); GLUCOSE, FASTING 66 MG/DL (60-100); IRON (FE) 20 UG/DL (65-175); POTASSIUM SERUM 4.3 MMOL/L (3.5-5.1); SODIUM LEVEL 135 MMOL/L (136-145); TOTAL IRON BINDING CAPACITY 398 UG/DL (250-425)
[2023-12-01 16:38] LABS: VITAMIN B12 LEVEL 472 PG/ML (211-911)
== END ==
LOC: M PLALAB 13:40
PROVIDERS: ATTEND Internal Medicine Infectious Disease
DX: B20 Human immunodeficiency virus [HIV] disease (principal)

== ENCOUNTER → 2023-12-20 | Outpatient (REF) | payer MEDICAID, OTHER | LOC: M SFHCPLAZ 10:17 | PROVIDERS: ATTEND Physician Assistant | DX: R05.1 Acute cough (principal) ==

== ENCOUNTER 2024-02-06 06:22 | Emergency (ER) | payer MEDICAID, OTHER ==
[~2024-02-06] VITALS: Ht 160 cm; Wt 50.0 kg
[2024-02-06] MEDS: MIDAZOLAM 5MG/ML 1ML VIAL IM ONE (06:40)
[2024-02-06 07:01] VITALS: TEMP 97.7
[2024-02-06 07:30] VITALS: O2SAT 96
[2024-02-06 07:41] LABS: BLOOD UREA NITROGEN 19 MG/DL (9-23); CALCIUM LEVEL 8.4 MG/DL (8.5-10.1); CARBON DIOXIDE LEVEL 25 MMOL/L (20-31); CHLORIDE LEVEL 103 MMOL/L (98-107); CREATININE FOR GFR 0.74 MG/DL (0.70-1.30); GLOMERULAR FILTRATION RATE > 60.0 (>56); GLUCOSE, FASTING 72 MG/DL (60-100); POTASSIUM SERUM 3.8 MMOL/L (3.5-5.1); SODIUM LEVEL 137 MMOL/L (136-145)
[2024-02-06 07:42] LABS: HEMATOCRIT 31.3 % (42.0-52.0); HEMOGLOBIN 10.1 g/dl (13.5-17.5); MEAN CORPUSCULAR HEMOGLOBIN 26.6 pg (27.0-33.0); MEAN CORPUSCULAR VOLUME 82.4 fl (80.0-96.0); WHITE BLOOD COUNT 6.4 10^3/uL (4.0-10.0)
[2024-02-06 07:43] LABS: BASO % 1.1 % (0.0-1.0); EOS % 3.1 % (0.0-3.0); LYMPH % 45.3 % (24.0-44.0); MEAN CORPUSCULAR HGB CONC 32.3 g/dl (32.0-36.5); MONO % 10.3 % (2.0-8.0); NEUTROPHILS % 39.7 % (36.0-66.0); PLATELET COUNT, AUTOMATED 356 10^3/uL (150-450)
[2024-02-06 07:44] LABS: BASO # 0.1 10^3/uL (0.0-0.2); EOS # 0.2 10^3/uL (0.0-0.5); LYMPH # 2.9 10^3/uL (1.5-5.0); MONO # 0.7 10^3/uL (0.0-0.8); NEUTROPHILS # 2.6 10^3/uL (1.5-8.5)
[2024-02-06 07:50] LABS: ETHYL ALCOHOL (ETHANOL) 0.382 % (0.000-0.010)
[2024-02-06 08:30] VITALS: BP 135/86
[2024-02-06] MEDS ORDERED: MED REC IN PROGRESS XX SCH (08:45)
[2024-02-06] MEDS ORDERED: LORazepam 2 MG TAB PO PRN (08:50)
[2024-02-06] MEDS ORDERED: FOLIC ACID 1MG TAB PO SCH (09:00)
[2024-02-06] MEDS ORDERED: THIAMINE 100 MG TAB PO SCH (09:00)
[2024-02-06] MEDS ORDERED: MULTIVITAMINS/MINERALS THERAP 1 TAB PO SCH (09:00)
[2024-02-06] MEDS ORDERED: MED REC CURRENTLY UNOBTAINABLE XX SCH (09:05)
== END 2024-02-06 10:08 | disposition left against medical advice (07) ==
LOC: EDBD 06:22 → M ED 06:22
DX: F10.129 Alcohol abuse with intoxication, unspecified (principal); F17.200 Nicotine dependence, unspecified, uncomplicated; F90.9 Attention-deficit hyperactivity disorder, unspecified type; F31.9 Bipolar disorder, unspecified; Z21 Asymptomatic human immunodeficiency virus [HIV] infection status; Z88.0 Allergy status to penicillin; Z88.3 Allergy status to other anti-infective agents; Z79.52 Long term (current) use of systemic steroids; Z79.810 Long term (current) use of selective estrogen receptor modulators (SERMs); Z79.899 Other long term (current) drug therapy; Z53.9 Procedure and treatment not carried out, unspecified reason
CPT/HCPCS: 80048; 82077; 85025; 96372; 99285; J2250

== ENCOUNTER 2024-02-07 15:37 | Outpatient (CLI) | payer OTHER ==
[~2024-02-07] VITALS: Ht 154.9 cm; Wt 50.0 kg
[~2024-02-07 15:37] MED LIST changes: +ALBUTEROL SULFATE 2.5MG/0.5ML INH NEB SOLN INH PRN; +EPINEPHrine INJ 1 MG/ML 1ML AMP IM PRN; +NS 1,000 ML IV SCH; +diphenhydrAMINE 50MG/ML VIAL IV PRN; +methylPREDNISolone 125MG 2ML VIAL IV PRN
[2024-02-07] MEDS: IRON SUCROSE 250 MG in NS 237.5 ML IV ONE (15:48)
[2024-02-07 16:00] VITALS: BP 142/80; O2SAT 97
== END 2024-02-07 16:50 | disposition home or self-care (01) ==
LOC: M INFU 15:37
PROVIDERS: ATTEND Physician Assistant
DX: D50.0 Iron deficiency anemia secondary to blood loss (chronic) (principal); Z88.0 Allergy status to penicillin; Z88.3 Allergy status to other anti-infective agents
CPT/HCPCS: 96365; J1756

== ENCOUNTER → 2024-05-22 | Outpatient (REF) | payer OTHER, MEDICAID ==
[~2024-05-22] MED LIST changes: -ALBUTEROL SULFATE 2.5MG/0.5ML INH NEB SOLN INH PRN; -EPINEPHrine INJ 1 MG/ML 1ML AMP IM PRN; -NS 1,000 ML IV SCH; -diphenhydrAMINE 50MG/ML VIAL IV PRN; -methylPREDNISolone 125MG 2ML VIAL IV PRN
[2024-05-22 14:46] LABS: ALBUMIN 3.7 G/DL (3.2-5.2); ALKALINE PHOSPHATASE 95 U/L (46-116); ALT/SGPT 18 U/L (7.0-40); AST/SGOT 10 U/L (<34); BILIRUBIN,TOTAL 0.2 MG/DL (0.3-1.2); BLOOD UREA NITROGEN 19 MG/DL (9-23); CALCIUM LEVEL 9.4 MG/DL (8.3-10.6); CARBON DIOXIDE LEVEL 24 MMOL/L (20-31); CHLORIDE LEVEL 103 MMOL/L (98-107); CREATININE FOR GFR 0.59 MG/DL (0.70-1.30); FERRITIN 4.4 NG/ML (10.5-307.3); GLOMERULAR FILTRATION RATE > 60.0 (>49); GLUCOSE, FASTING 84 MG/DL (74-106); IRON (FE) 6 UG/DL (65-175); PERCENT SATURATION 1.3 % (19.7-50.0); SODIUM LEVEL 136 MMOL/L (136-145); TOTAL IRON BINDING CAPACITY 458 UG/DL (250-425); TOTAL PROTEIN 6.7 G/DL (5.7-8.2)
[2024-05-23 12:12] LABS: % CD4+ LYMPHS 38.6 % (30.8-58.5); ABSOLUTE CD4 HELPER 463 /uL (359-1519); BASOPHILS 1 % (Not Estab.); BASOPHILS ABSOLUTE 0.1 x10E3/uL (0.0-0.2); EOSINOPHILS 3 % (Not Estab.); EOSINOPHILS ABSOLUTE 0.2 x10E3/uL (0.0-0.4); HCT 20.5 % (37.5-51.0); LYMPHOCYTES 19 % (Not Estab.); LYMPHOCYTES ABSOLUTE 1.2 x10E3/uL (0.7-3.1); MCH 24.5 pg (26.6-33.0); MCHC 28.3 g/dL (31.5-35.7); MCV 87 fL (79-97); MONOCYTES 18 % (Not Estab.); MONOCYTES ABSOLUTE 1.1 x10E3/uL (0.1-0.9); NEUTROPHILS 58 % (Not Estab.); NEUTROPHILS ABSOLUTE 3.8 x10E3/uL (1.4-7.0); PLT 435 x10E3/uL (150-450); RBC 2.37 x10E6/uL (4.14-5.80); RDW 17.1 % (11.6-15.4); WBC 6.5 x10E3/uL (3.4-10.8)
[2024-05-24 12:11] LABS: HIV-1 RNA PCR QUANT 2 NOT DETECTED copies/mL (NOT DETECTED); HIV-1 RNA PCR QUANT 3 NOT DETECTED (NOT DETECTED)
== END ==
LOC: M SFHCPLAZ 13:33
PROVIDERS: ATTEND Internal Medicine Infectious Disease
DX: B20 Human immunodeficiency virus [HIV] disease (principal); D50.0 Iron deficiency anemia secondary to blood loss (chronic)

== ENCOUNTER → 2024-12-18 | Outpatient (CLI) | payer OTHER ==
[2024-12-18 14:04] LABS: HEMOGLOBIN 14.9 g/dl (13.5-17.5); MEAN CORPUSCULAR HEMOGLOBIN 31.4 pg (27.0-33.0); MEAN CORPUSCULAR HGB CONC 33.9 g/dl (32.0-36.5); MEAN CORPUSCULAR VOLUME 92.6 fl (80.0-96.0); PLATELET COUNT, AUTOMATED 347 10^3/uL (150-450); RED BLOOD COUNT 4.75 10^6/uL (4.30-6.10); WHITE BLOOD COUNT 7.8 10^3/uL (4.0-10.0)
[2024-12-18 14:41] LABS: ALBUMIN 4.1 G/DL (3.2-5.2); ALKALINE PHOSPHATASE 83 U/L (40-129); ALT/SGPT 33 U/L (7.0-40); AST/SGOT 32 U/L (<34); BILIRUBIN,TOTAL 0.3 MG/DL (0.3-1.2); BLOOD UREA NITROGEN 7 MG/DL (9-23); CALCIUM LEVEL 9.5 MG/DL (8.3-10.6); CARBON DIOXIDE LEVEL 30 MMOL/L (20-31); CHLORIDE LEVEL 104 MMOL/L (98-107); CREATININE FOR GFR 0.66 MG/DL (0.70-1.30); FERRITIN 24.4 NG/ML (10.5-307.3); GLOMERULAR FILTRATION RATE > 60.0 (>49); GLUCOSE, FASTING 84 MG/DL (74-106); IRON (FE) 168 UG/DL (65-175); PERCENT SATURATION 44.1 % (19.7-50.0); POTASSIUM SERUM 4.3 MMOL/L (3.5-5.1); SODIUM LEVEL 139 MMOL/L (136-145); TOTAL IRON BINDING CAPACITY 381 UG/DL (250-425); TOTAL PROTEIN 7.6 G/DL (5.7-8.2)
== END ==
LOC: M PLALAB 11:08
PROVIDERS: ATTEND Student in an Organized Health Care Education/Training Program
DX: D50.0 Iron deficiency anemia secondary to blood loss (chronic) (principal); I10 Essential (primary) hypertension

== ENCOUNTER 2025-02-09 16:47 | Emergency (ER) | payer OTHER ==
[~2025-02-09] VITALS: Ht 160 cm; Wt 46.4 kg
[2025-02-09] MEDS ORDERED: VENTAER INH (17:06)
[2025-02-09 18:03] LABS: BASO % 0.5 % (0.0-1.0); EOS % 0.5 % (0.0-3.0); HEMATOCRIT 34.2 % (42.0-52.0); HEMOGLOBIN 11.9 g/dl (13.5-17.5); LYMPH # 0.9 10^3/uL (1.5-5.0); LYMPH % 10.8 % (24.0-44.0); MEAN CORPUSCULAR HEMOGLOBIN 34.3 pg (27.0-33.0); MEAN CORPUSCULAR HGB CONC 34.8 g/dl (32.0-36.5); MEAN CORPUSCULAR VOLUME 98.6 fl (80.0-96.0); MONO # 1.6 10^3/uL (0.0-0.8); MONO % 18.9 % (2.0-8.0); NEUTROPHILS # 5.8 10^3/uL (1.5-8.5); NEUTROPHILS % 68.6 % (36.0-66.0); PLATELET COUNT, AUTOMATED 305 10^3/uL (150-450); RED BLOOD COUNT 3.47 10^6/uL (4.30-6.10); WHITE BLOOD COUNT 8.4 10^3/uL (4.0-10.0)
[2025-02-09 18:18] LABS: INR 0.9; PARTIAL THROMBOPLASTIN TIME 33.8 SECONDS (24.8-34.2); PROTHROMBIN TIME 12.5 SECONDS (12.5-14.5)
[2025-02-09 18:38] LABS: ALKALINE PHOSPHATASE 92 U/L (40-129); ALT/SGPT 20 U/L (7.0-40); AST/SGOT 48 U/L (<34); BILIRUBIN,DIRECT < 0.1 MG/DL (<0.4); BILIRUBIN,TOTAL < 0.2 MG/DL (0.3-1.2); BLOOD UREA NITROGEN 10 MG/DL (9-23); CALCIUM LEVEL 8.1 MG/DL (8.3-10.6); CARBON DIOXIDE LEVEL 25 MMOL/L (20-31); CHLORIDE LEVEL 102 MMOL/L (98-107); CK-MB VALUE MASS < 1.0 NG/ML (<3.6); CPK CREATINE PHOSPHOKINASE 85 U/L (46-171); CREATININE FOR GFR 0.56 MG/DL (0.70-1.30); FREE T4 0.95 NG/DL (0.89-1.76); GLOMERULAR FILTRATION RATE > 60.0 (>49); GLUCOSE, FASTING 78 MG/DL (74-106); MB/CK RELATIVE INDEX 1.17 (< OR =4); POTASSIUM SERUM 4.8 MMOL/L (3.5-5.1); SODIUM LEVEL 134 MMOL/L (136-145); THYROID STIMULATING HORMONE 0.322 uIU/ML (0.55-4.78); TOTAL PROTEIN 6.2 G/DL (5.7-8.2)
[2025-02-09 19:36] LABS: LIPASE 30 U/L (12-53)
[2025-02-09] MEDS: CEFEPIME HCL 2 GM in DEXTROSE 5% (D5W) ADV/MINI-BAG 50 ML IV ONE (19:49)
[2025-02-09] MEDS: NS (Normal Saline) 0.9% 1,000 ML IV ONE (19:49)
[2025-02-09] MEDS: ACETAMINOPHEN 325 MG TAB PO ONE (19:49)
[2025-02-09] MEDS: ONDANSETRON 4MG 2ML VIAL IV ONE (19:50)
[2025-02-09 19:58] LABS: KETONE, URINE AUTO RFX NEGATIVE (NEGATIVE); LEUKOCYTE ESTERASE UR AUTO RFX NEGATIVE (NEGATIVE); NITRITE, URINE AUTO RFX NEGATIVE (NEGATIVE); RBC, URINE AUTO RFX 0 /HPF (0-3); SQUAM EPITHELIAL CELL UR AURFX 0 /HPF (0-6); WBC, URINE AUTO RFX 0 /HPF (0-3)
[2025-02-09] MEDS: IPRATROPIUM 0.5MG/ALBUTEROL 2.5MG INH SOL UD 3ML NEB ONE (20:27)
[2025-02-09 20:28] LABS: CK-MB VALUE MASS < 1.0 NG/ML (<3.6)
[2025-02-09 20:39] LABS: CPK CREATINE PHOSPHOKINASE 80 U/L (46-171); MB/CK RELATIVE INDEX 1.25 (< OR =4)
[2025-02-09] MEDS: OSELTAMIVIR PHOSPHATE 75 MG CAP PO ONE (21:15)
[2025-02-09] MEDS ORDERED: ISOVUE-370 76% 100ML VIAL As Ordered ONE (21:46)
[2025-02-09 22:33] VITALS: BP 137/73; O2SAT 96
[2025-02-09 22:43] VITALS: TEMP 100.6
[2025-02-09] MEDS ORDERED: OSEL75CA PO (22:49)
== END 2025-02-09 23:30 | disposition home or self-care (01) ==
LOC: EDBD 16:47 → M ED 16:47
DX: J09.X2 Influenza due to identified novel influenza A virus with other respiratory manifestations (principal); R00.0 Tachycardia, unspecified; I44.0 Atrioventricular block, first degree; J44.9 Chronic obstructive pulmonary disease, unspecified; F90.9 Attention-deficit hyperactivity disorder, unspecified type; F17.200 Nicotine dependence, unspecified, uncomplicated; F10.10 Alcohol abuse, uncomplicated; Z88.0 Allergy status to penicillin; Z88.8 Allergy status to other drugs, medicaments and biological substances; Z21 Asymptomatic human immunodeficiency virus [HIV] infection status; Z79.52 Long term (current) use of systemic steroids; Z79.1 Long term (current) use of non-steroidal anti-inflammatories (NSAID); Z79.899 Other long term (current) drug therapy
CPT/HCPCS: 71045; 71275; 72190; 74177; 80048; 80076; 81001; 82550; 82553; 83605; 83690; 83880; 84439; 84443; 84484; 85025; 85610; 85730; 87040; 87077; 87154; 87186; 87486; 87581; 87633; 87798; 93005; 93041; 94640; 94760; 96365; 96366; 96375; 99284; J0692; J2405; Q9967

== ENCOUNTER → 2025-02-25 | Emergency (ER) | payer OTHER ==
[~2025-02-25] MED LIST changes: +OSEL75CA PO
[2025-02-25 14:56] VITALS: BP 143/69; TEMP 99; O2SAT 98
== END | disposition left against medical advice (07) ==
LOC: EDUNIT# 14:29 → M ED 14:31 → EDBD 14:31
DX: Z71.2 Person consulting for explanation of examination or test findings (principal); J44.0 Chronic obstructive pulmonary disease with (acute) lower respiratory infection; F90.9 Attention-deficit hyperactivity disorder, unspecified type; B20 Human immunodeficiency virus [HIV] disease; F10.10 Alcohol abuse, uncomplicated; Z72.0 Tobacco use; Z88.0 Allergy status to penicillin; Z88.8 Allergy status to other drugs, medicaments and biological substances; Z53.1 Procedure and treatment not carried out because of patient's decision for reasons of belief and group pressure

== ENCOUNTER → 2025-05-22 | Outpatient (REF) | payer OTHER, MEDICAID ==
[2025-05-22 15:58] LABS: ALT/SGPT 20 U/L (7.0-40); AST/SGOT 25 U/L (<34); CALCIUM LEVEL 9.1 MG/DL (8.3-10.6); CARBON DIOXIDE LEVEL 25 MMOL/L (20-31); CHLORIDE LEVEL 100 MMOL/L (98-107); CHOLESTEROL LEVEL 155 MG/DL (<200); CHOLESTEROL RISK RATIO 1.69 (<5); CREATININE FOR GFR 0.75 MG/DL (0.70-1.30); GLOMERULAR FILTRATION RATE > 90.0 (>49); IRON (FE) 17 UG/DL (65-175); LDL CHOLESTEROL 38.1 MG/DL (<100); NON-HDL-C 63.5 MG/DL; PERCENT SATURATION 4.2 % (19.7-50.0); POTASSIUM SERUM 4.1 MMOL/L (3.5-5.1); PSA SCREENING 0.37 NG/ML (< 4.00); SODIUM LEVEL 136 MMOL/L (136-145); TRIGLYCERIDES LEVEL 127 MG/DL (<150)
[2025-05-22 16:27] LABS: ESTIMATED AVERAGE GLUCOSE 97.0 MG/DL (60-110)
== END ==
LOC: M SFHCPLAZ 11:18
PROVIDERS: ATTEND Nurse Practitioner Family
DX: D50.0 Iron deficiency anemia secondary to blood loss (chronic) (principal); Z13.220 Encounter for screening for lipoid disorders; Z13.1 Encounter for screening for diabetes mellitus; F10.10 Alcohol abuse, uncomplicated; Z12.5 Encounter for screening for malignant neoplasm of prostate

== ENCOUNTER → 2025-06-10 | Outpatient (CLI) | payer OTHER ==
[2025-06-12 10:21] LABS: HIV-1 RNA PCR QUANT 2 NOT DETECTED copies/mL (NOT DETECTED); HIV-1 RNA PCR QUANT 3 NOT DETECTED (NOT DETECTED)
[2025-06-13 03:12] LABS: % CD4 42 % (30-61); %CD8 49 % (12-42); ABSOLUTE CD4 CELLS 425 cells/uL (490-1740); ABSOLUTE CD8 CELLS 495 cells/uL (180-1170); ABSOLUTE LYMPHOCYTES 1012 cells/uL (850-3900); CD4 CD8 RATIO 0.86 (0.86-5.00)
== END ==
LOC: M PLALAB 12:46
PROVIDERS: ATTEND Internal Medicine Infectious Disease
DX: B20 Human immunodeficiency virus [HIV] disease (principal); K70.10 Alcoholic hepatitis without ascites